=== PATIENT | male | born 1945 | race Caucasian/White ===

== ENCOUNTER 2017-05-20 14:10 | Emergency (ER) | payer MEDICARE ==
--- NOTE | 2017-05-20 15:21 | EDM.PDOC ---
ED HPI GENERAL MEDICAL PROBLEM - General Chief Complaint: Lower Extremity Injury/Pain Stated Complaint: LOWER ABDOMINAL PAIN Time Seen by Provider: 05/20/17 15:18 Source of Information: Reports: Patient History Limitations: Reports: No Limitations - History of Present Illness INITIAL COMMENTS - FREE TEXT/NARRATIVE: HISTORY AND PHYSICAL: History of present illness: Patient is a 72-year-old male presents to the emergency room today with complaints of left hip pain that increases with weightbearing. She reports he has a long-standing history of left lower extremity injury. 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 5-years ago he had a left hip fracture and femur fracture. He reports he has had no problems since that time. Over the past 2 weeks he has had increased left hip pain which has required him to use a front wheeled walker. States the pain is increased with weightbearing. Denies any recent trauma or injury. Denies any numbness or tingling to his lower extremities. Patient does have a history of recent cardiac bypass. Currently denies any chest pain or shortness of breath. Review of systems: As per history of present illness and below otherwise all systems reviewed and negative. Past medical history: As per history of present illness and as reviewed below otherwise noncontributory. Surgical history: As per history of present illness and as reviewed below otherwise noncontributory. Social history: No reported history of drug or alcohol abuse. Family history: As per history of present illness and as reviewed below otherwise noncontributory. Physical exam: HEENT: Atraumatic, normocephalic, pupils reactive, negative for conjunctival pallor or scleral icterus, mucous membranes moist, throat clear, neck supple, nontender, trachea midline. Lungs: Clear to auscultation, breath sounds equal bilaterally, chest nontender. Heart: S1S2, regular, negative for clicks, rubs, or JVD. Abdomen: Soft, nondistended, nontender. Negative for masses or hepatosplenomegaly. Negative for costovertebral tenderness. Pelvis: Stable nontender. Genitourinary: Deferred. Rectal: Deferred. Extremities: Atraumatic, negative for cords or calf pain. Neurovascular unremarkable. Palpable pedal pulses bilaterally, no peripheral edema noted. Normal variant - partial amputation of the left great toe. Neuro: Awake, alert, oriented. Cranial nerves II through XII unremarkable. Cerebellum unremarkable. Motor and sensory unremarkable throughout. Exam nonfocal. Patient has a family member at the bedside who expresses concern of limited blood flow to that left lower extremity. Patient states he has had some circulatory issues in the past and had has some grafting to the inner thigh. Discussed imaging results with patient and family member at bedside. I will place the patient on a Medrol Dosepak and its give a limited amount of tramadol for pain. Patient was instructed that he needs to follow-up with orthopedics if his pain continues. Discussed the importance of follow-up with cardiology with the patient's recent bypass surgery. She voices understanding and is agreeable to plan of care. Diagnostics: X-ray pelvis and hip, ultrasound Therapeutics: 60mg Toradol IM Impression: Hip Pain Definitive disposition and diagnosis as appropriate pending reevaluation and review of above. Onset: Other (2 weeks ago) left upper leg Pain Score (Numeric/FACES): 8 - Related Data Allergies Allergy/AdvReac Type Severity Reaction Status Date / Time Penicillins Allergy Cannot Verified 05/20/17 14:38 Remember Home Meds: Home Meds . [No Known Home Meds] 05/23/16 [History] Past Medical History HEENT History: Reports: Impaired Vision Other HEENT History: has top and bottom dentures, wears glasses Cardiovascular History: Reports: High Cholesterol, Hypertension, [place] Respiratory History: Reports: Other (See Below) Other Respiratory History: smokes 1 pk of cigarettes per day for over 50 yrs Gastrointestinal History: Reports: Other (See Below) Other Gastrointestinal History: states he is on his last treatment for hepatitis C,h/o elevated LFT'S Genitourinary History: Reports: Prostate Disorder Musculoskeletal History: Reports: Back Pain, Chronic Other Musculoskeletal History: WILLA, chronic leg pain Neurological History: Reports: None Psychiatric History: Reports: Addiction, Other (See Below) Other Psychiatric History: hx ETOH abuse Endocrine/Metabolic History: Reports: None Hematologic History: Reports: None Immunologic History: Reports: None Oncologic (Cancer) History: Reports: None Dermatologic History: Reports: None - Infectious Disease History Infectious Disease History: Reports: Hepatitis C, Measles, Mumps - Past Surgical History Head Surgeries/Procedures: Reports: None HEENT Surgical History: Reports: Naso-Sinus Surgery Cardiovascular Surgical History: Reports: Coronary Artery Bypass, Vascular Surgery, Other (See Below) GI Surgical History: Reports: Appendectomy Male Surgical History: Reports: Other (See Below) Other Male Surgeries/Procedures: Prostate Social & Family History - Family History Family Medical History: Noncontributory - Tobacco Use Smoking Status *Q: Current Every Day Smoker Years of Tobacco use: 50 Packs/Tins Daily: 0.3 Second Hand Smoke Exposure: No - Caffeine Use Caffeine Use: Reports: Coffee, Tea - Alcohol Use Days Per Week of Alcohol Use: 0 Number of Drinks Per Day: 1 Total Drinks Per Week: 0 - Recreational Drug Use Recreational Drug Use: Yes Drug Use in Last 12 Months: Yes Recreational Drug Type: Reports: Marijuana/Hashish, Methamphetamine Other Recreational Drug Type: last used about 1 year ago Recreational Drug Use Frequency: Not Used In Over 3 Months Recreational Drug Last Use: meth Review of Systems - Review of Systems Review Of Systems: ROS reveals no pertinent complaints other than HPI. ED EXAM, GENERAL - Physical Exam Exam: See Below (See dictation) Course - Vital Signs Last Recorded V/S: Last Vital Signs Temp 36.3 C 05/20/17 14:34 Pulse 94 05/20/17 14:34 Resp 18 05/20/17 14:34 BP 130/90 05/20/17 14:34 Pulse Ox 97 05/20/17 14:34 - Orders/Labs/Meds Orders: Active Orders 24 hr Category Date Time Status Art Duplex Lwr Ext Ltd [US] Stat Exams 05/20/17 15:39 Taken Hip Min 2V or 3V w Pelvis Lt [CR] Stat Exams 05/20/17 15:18 Taken Venous Doppler Lwr Ext Lt [US] Stat Exams 05/20/17 15:41 Taken Meds: Medications Discontinued Medications Generic Name Dose Route Start Last Admin Trade Name Zaria PRN Reason Stop Dose Admin Ketorolac Tromethamine 60 mg 05/20/17 17:43 05/20/17 18:15 Toradol IM 05/20/17 17:44 60 mg ONETIME ONE Administration Prednisone 20 mg 05/20/17 18:27 Prednisone PO 05/20/17 18:28 ONETIME ONE Departure - Departure Time of Disposition: 18:29 Disposition: Home, Self-Care 01 Condition: Good Clinical Impression: Hip pain, left - Discharge Information Referrals: PCP,None [Primary Care Provider] - Forms: ED Department Discharge Additional Instructions: The following information is given to patients seen in the emergency department who are being discharged to home. This information is to outline your options for follow-up care. We provide all patients seen in our emergency department with a follow-up referral. The need for follow-up, as well as the timing and circumstances, are variable depending upon the specifics of your emergency department visit. If you don't have a primary care physician on staff, we will provide you with a referral. We always advise you to contact your personal physician following an emergency department visit to inform them of the circumstance of the visit and for follow-up with them and/or the need for any referrals to a consulting specialist. The emergency department will also refer you to a specialist when appropriate. This referral assures that you have the opportunity for followup care with a specialist. All of these measure are taken in an effort to provide you with optimal care, which includes your followup. Under all circumstances we always encourage you to contact your private physician who remains a resource for coordinating your care. When calling for followup care, please make the office aware that this follow-up is from your recent emergency room visit. If for any reason you are refused follow-up, please contact the [facility] emergency department at and ask to speak to the emergency department charge nurse. [facility]--Orthopedic clinic Professional [address] [address] 1. Please take your medications as prescribed. Follow up with orthopedics as we discussed. 2. Return to the ED as needed as discussed - My Orders Last 24 Hours: My Active Orders 05/20/17 15:18 Hip Min 2V or 3V w Pelvis Lt [CR] Stat 05/20/17 15:39 Art Duplex Lwr Ext Ltd [US] Stat 05/20/17 15:41 Venous Doppler Lwr Ext Lt [US] Stat - Assessment/Plan Last 24 Hours: My Active Orders 05/20/17 15:18 Hip Min 2V or 3V w Pelvis Lt [CR] Stat 05/20/17 15:39 Art Duplex Lwr Ext Ltd [US] Stat 05/20/17 15:41 Venous Doppler Lwr Ext Lt [US] Stat
[2017-05-20] MEDS ORDERED: Ketorolac 60 MG/2 ML SDV IM ONE (17:43)
[2017-05-20] MEDS ORDERED: predniSONE 20 MG Tab PO ONE (18:27)
[2017-05-20 19:02] VITALS: BP 144/81
--- NOTE | 2017-05-21 10:06 | US ---
EXAM DATE: 05/20/17 PATIENT'S AGE: 72 Patient: SHALONDA LÓPEZ Facility: [place], [place] Site . Site : 1945 Study: US Extremity Left venous [id number]/11/2017 5:00:54 PM Ordering Physician: Doctor Henao Final Report: INDICATION: PAIN LT HIP R/O BLOCKAGE LEFT LOWER EXTREMITY VENOUS DUPLEX ULTRASOUND TECHNIQUE: Duplex sonography using grayscale imaging as well as color and spectral Doppler interrogation was performed over the left lower extremity with attention to the deep venous system. FINDINGS: The left common femoral, femoral, deep femoral, popliteal, and posterior tibial veins show normal compressibility, color Doppler flow, and augmentation response. IMPRESSION: No evidence of deep venous thrombosis in the left lower extremity. SEBASITEN ROJAS MD [employer] Dictated by: Emanuel Rojas MD @ 05/20/2017 17:48:37 (Electronic Signature) Report Signed by Proxy. DOMINIQUE
--- NOTE | 2017-05-21 10:07 | CR ---
EXAM DATE: 05/20/17 PATIENT'S AGE: 72 Patient: SHALONDA LÓPEZ Facility: [place], [place] Site . Site : 1945 Study: XRay Extremity Left hip [id number]/11/2017 5:23:15 PM Ordering Physician: Doctor Henao Final Report: HISTORY: Pain. Technique: Left femur 2 views. Comparison: None. Findings: Remote proximal femur fracture deformity. Post internal fixation of the femur with long intra medullary nail, femoral neck screw, and two distal interlocking screws. Small amount of heterotopic ossification adjacent to the greater trochanter. Hardware is intact. No lucency around the hardware. No acute fracture. Mild arthrosis of the left hip. Atherosclerotic calcifications. Surgical clips in the left thigh. Impression: No acute findings. Remote posttraumatic and postoperative changes in the left femur. Dictated by Edwin Merino MD @ May 20 2017 6:11PM (Electronic Signature) Report Signed by Proxy. DOMINIQUE
--- NOTE | 2017-05-22 09:49 | US ---
EXAM DATE: 05/20/17 PATIENT'S AGE: 72 Patient: SHALONDA LÓPEZ Facility: [facility] Site . Site : 1945 Study: US-Extremity Left ARTERIAL [id number]/11/2017 5:02:18 PM Ordering Physician: Doctor Henao Final Report: Exam: Duplex ultrasound of the left lower extremity arteries with color and spectral Doppler. Indication: Left leg pain. Comparison: None. Findings: LEFT: VALVE PIPE IRRIGATOR: 41 cm/sec; monophasic waveform SFA PROX: 97 cm/sec (VR 2.4); monophasic waveform SFA MID: 49 cm/sec; weakly biphasic waveform SFA DIST: 50 cm/sec; weakly biphasic waveform POP: 33 cm/sec; weakly biphasic waveform CERTIFIED ORTHOTIST: 24 cm/sec; monophasic waveform ILSA: 36 cm/sec; biphasic waveform Impression: 1. Patent left lower extremity arteries with diminished waveforms suggestive of inflow disease. 2. Elevated velocity ratio in the proximal left SFA suggestive of a moderate stenosis, though no evidence of hemodynamically significant stenosis on duplex ultrasound. 3. Otherwise, no hemodynamically significant stenosis in the visualized left lower extremity arteries. Dictated by Garland Wall MD @ May 21 2017 4:50PM Signed by: Garland Wall MD @05/21/2017 5:00:50 PM (Electronic Signature) Report Signed by Proxy. DOMINIQUE
== END 2017-05-20 18:57 | disposition home or self-care (01) ==
LOC: MW.ED 14:10
DX: M25.552 Pain in left hip (principal); E78.00 Pure hypercholesterolemia, unspecified; I10 Essential (primary) hypertension; F17.210 Nicotine dependence, cigarettes, uncomplicated; I25.2 Old myocardial infarction; Z90.49 Acquired absence of other specified parts of digestive tract; Z88.0 Allergy status to penicillin
CPT/HCPCS: 73502; 93926; 93971; 96372; 99284; A9270; J1885; 99283

== ENCOUNTER 2017-10-12 23:08 | Observation (INO) | payer MEDICARE ==
[2017-10-12] MEDS ORDERED: Ketorolac 30 MG/ML SDV IM ONE (23:44)
--- NOTE | 2017-10-12 23:45 | EDM.PDOC ---
ED HPI GENERAL MEDICAL PROBLEM - General Chief Complaint: Back Pain or Injury Stated Complaint: LOWER BACK PAIN Time Seen by Provider: 10/12/17 23:45 Source of Information: Reports: Patient - History of Present Illness INITIAL COMMENTS - FREE TEXT/NARRATIVE: HISTORY AND PHYSICAL: History of present illness: [ 72-year-old male with chronic low back pain presents with pain not relieved by as Neurontin or ibuprofen, he was scheduled for back surgery [facility] last year however he is found to require 3 bypass CABG and surgery was put off is been doing better since this time and is scheduled to see a physician at [facility] in mind to reschedule surgery although tonight he is having some right sciatic distribution pain he has no new injury falls or trauma this is not new pain to him just seems to be getting worse he has no foot drop saddle anesthesia bowel or urine symptoms No fever nausea vomiting chills sweats no chest pain shortness breath headache dizziness palpitation no bowel or urine symptoms ] Review of systems: As per history of present illness and below otherwise all systems reviewed and negative. Past medical history: As per history of present illness and as reviewed below otherwise noncontributory. Surgical history: As per history of present illness and as reviewed below otherwise noncontributory. Social history: No reported history of drug or alcohol abuse. Family history: As per history of present illness and as reviewed below otherwise noncontributory. Physical exam: HEENT: Atraumatic, normocephalic, pupils reactive, negative for conjunctival pallor or scleral icterus, mucous membranes moist, throat clear, neck supple, nontender, trachea midline. Lungs: Clear to auscultation, breath sounds equal bilaterally, chest nontender. Heart: S1S2, regular, negative for clicks, rubs, or JVD. Abdomen: Soft, nondistended, nontender. Negative for masses or hepatosplenomegaly. Negative for costovertebral tenderness. Pelvis: Stable nontender. Genitourinary: Deferred. Rectal: Deferred. Extremities: Atraumatic, negative for cords or calf pain. Neurovascular unremarkable. Neuro: Awake, alert, oriented. Cranial nerves II through XII unremarkable. Cerebellum unremarkable. Motor and sensory unremarkable throughout. Exam nonfocal. Diagnostics: [Patient deferred x-ray ] Therapeutics: [Toradol 60 IM Upper Tract 5 per 325 one by mouth every 6 when necessary #20 no refill ] Impression: [Chronic low back pain ] Definitive disposition and diagnosis as appropriate pending reevaluation and review of above. lower back Pain Score (Numeric/FACES): 8 - Related Data Allergies Allergy/AdvReac Type Severity Reaction Status Date / Time Penicillins Allergy Cannot Verified 10/12/17 23:42 Remember Home Meds: Home Meds ALPRAZolam [ALPRAZolam ODT] 0.25 mg PO DAILY 10/12/17 [History] Gabapentin [Neurontin] 300 mg PO TID 10/12/17 [History] Lisinopril 10 mg PO DAILY 10/12/17 [History] Metoprolol Succinate [Toprol XL] 25 mg PO BID 10/12/17 [History] Past Medical History HEENT History: Reports: Impaired Vision Other HEENT History: has top and bottom dentures, wears glasses Cardiovascular History: Reports: High Cholesterol, Hypertension, [place] Respiratory History: Reports: Other (See Below) Other Respiratory History: smokes 1 pk of cigarettes per day for over 50 yrs Gastrointestinal History: Reports: Other (See Below) Other Gastrointestinal History: states he is on his last treatment for hepatitis C,h/o elevated LFT'S Genitourinary History: Reports: Prostate Disorder Musculoskeletal History: Reports: Back Pain, Chronic Other Musculoskeletal History: WILLA, chronic leg pain Neurological History: Reports: None Psychiatric History: Reports: Addiction, Other (See Below) Other Psychiatric History: hx ETOH abuse Endocrine/Metabolic History: Reports: None Hematologic History: Reports: None Immunologic History: Reports: None Oncologic (Cancer) History: Reports: None Dermatologic History: Reports: None - Infectious Disease History Infectious Disease History: Reports: Hepatitis C, Measles, Mumps - Past Surgical History Head Surgeries/Procedures: Reports: None HEENT Surgical History: Reports: Naso-Sinus Surgery Cardiovascular Surgical History: Reports: Coronary Artery Bypass, Vascular Surgery, Other (See Below) GI Surgical History: Reports: Appendectomy Male Surgical History: Reports: Other (See Below) Other Male Surgeries/Procedures: Prostate Social & Family History - Family History Family Medical History: Noncontributory - Tobacco Use Smoking Status *Q: Current Every Day Smoker Years of Tobacco use: 50 Packs/Tins Daily: 0.3 Second Hand Smoke Exposure: No - Caffeine Use Caffeine Use: Reports: Coffee, Tea - Alcohol Use Days Per Week of Alcohol Use: 0 Number of Drinks Per Day: 1 Total Drinks Per Week: 0 - Recreational Drug Use Recreational Drug Use: Yes Drug Use in Last 12 Months: Yes Recreational Drug Type: Reports: Marijuana/Hashish, Methamphetamine Other Recreational Drug Type: last used about 1 year ago Recreational Drug Use Frequency: Not Used In Over 3 Months Recreational Drug Last Use: meth ED ROS GENERAL - Review of Systems Review Of Systems: ROS reveals no pertinent complaints other than HPI. ED EXAM, GENERAL - Physical Exam Exam: See Below Course - Vital Signs Last Recorded V/S: Last Vital Signs Temp 97.9 F 10/12/17 23:34 Pulse 66 10/12/17 23:34 Resp 21 H 10/12/17 23:34 BP 123/58 L 10/12/17 23:34 Pulse Ox 99 10/12/17 23:34 - Orders/Labs/Meds Meds: Medications Discontinued Medications Generic Name Dose Route Start Last Admin Trade Name Freq PRN Reason Stop Dose Admin Ketorolac Tromethamine 30 mg 10/12/17 23:44 Toradol IM 10/12/17 23:45 ONETIME ONE Departure - Departure Time of Disposition: 23:57 Disposition: Home, Self-Care 01 Condition: Good Clinical Impression: Low back pain Qualifiers: Chronicity: chronic Back pain laterality: bilateral Sciatica presence: with sciatica Sciatica laterality: sciatica of right side Qualified Code(s): M54.41 - Lumbago with sciatica, right side - Discharge Information Referrals: PCP,None [Primary Care Provider] - Forms: ED Department Discharge Additional Instructions: Medication as prescribed Return if symptoms persist or worsen or new concerning symptoms develop Follow-up as scheduled in [place] next week The following information is given to patients seen in the emergency department who are being discharged to home. This information is to outline your options for follow-up care. We provide all patients seen in our emergency department with a follow-up referral. The need for follow-up, as well as the timing and circumstances, are variable depending upon the specifics of your emergency department visit. If you don't have a primary care physician on staff, we will provide you with a referral. We always advise you to contact your personal physician following an emergency department visit to inform them of the circumstance of the visit and for follow-up with them and/or the need for any referrals to a consulting specialist. The emergency department will also refer you to a specialist when appropriate. This referral assures that you have the opportunity for follow-up care with a specialist. All of these measure are taken in an effort to provide you with optimal care, which includes your follow-up. Under all circumstances we always encourage you to contact your private physician who remains a resource for coordinating your care. When calling for follow-up care, please make the office aware that this follow-up is from your recent emergency room visit. If for any reason you are refused follow-up, please contact the [facility] emergency department at and asked to speak to the emergency department charge nurse.
[2017-10-13] MEDS ORDERED: Sodium Chloride 0.9% 1,000 ML IV ONE ×3 (00:45→01:46)
[2017-10-13 02:05] LABS: CHLORIDE,CL 108 mmol/L (98-110); SODIUM,NA 135 mmol/L (136-146)
[2017-10-13] MEDS ORDERED: Levofloxacin/Dextrose 5%-Water 750 MG in Premix Bag 1 BAG IV ONE (02:39)
[2017-10-13] MEDS ORDERED: diphenhydrAMINE 25 MG Cap PO ONE (04:28)
[2017-10-13] MEDS ORDERED: Sodium Chloride 0.9% 1,000 ML IV SCH (04:30)
[2017-10-13 11:54] VITALS: BP 130/71
--- NOTE | 2017-10-13 13:11 | PCM.HP ---
H&P History of Present Illness - General Admit Problem/Dx: Admission Diagnosis/Problem Admission Diagnosis/Problem Hypotension - History of Present Illness Initial Comments - Free Text/Narative: 72 yo male wiht pmh of CAD and chronic back pain. He presented with one day history of feeling ill. He reported generalized weakness, nausea, and lower back pain. He denied any fevers, chills, cough, diarrhea, or constipation. In the ED he was noted to have a blood pressure of 70/40 which improved to 110/60s with IV fluid bolus. His lab work was significant for a WBC of 16.48 and creatinine of 1.9. CT chest showed nodular pleural calcifications but no acute abnormality. lower back Pain Score (Numeric/FACES): 2 - Related Data Allergies/Adverse Reactions: Allergies Allergy/AdvReac Type Severity Reaction Status Date / Time levofloxacin [From Levaquin] Allergy Itching Verified 10/13/17 05:20 Penicillins Allergy Cannot Verified 10/12/17 23:42 Remember Home Medications: Home Meds ALPRAZolam [ALPRAZolam ODT] 0.25 mg PO DAILY 10/12/17 [History] Gabapentin [Neurontin] 300 mg PO TID 10/12/17 [History] Lisinopril 10 mg PO DAILY 10/12/17 [History] Metoprolol Succinate [Toprol XL] 25 mg PO BID 10/12/17 [History] Past Medical History HEENT History: Reports: Impaired Vision Other HEENT History: has top and bottom dentures, wears glasses Cardiovascular History: Reports: High Cholesterol, Hypertension, [place] Respiratory History: Reports: Other (See Below) Other Respiratory History: smokes 1 pk of cigarettes per day for over 50 yrs Gastrointestinal History: Reports: Other (See Below) Other Gastrointestinal History: states he is on his last treatment for hepatitis C,h/o elevated LFT'S Genitourinary History: Reports: Prostate Disorder Musculoskeletal History: Reports: Back Pain, Chronic Other Musculoskeletal History: WILLA, chronic leg pain Neurological History: Reports: None Psychiatric History: Reports: Addiction, Other (See Below) Other Psychiatric History: hx ETOH abuse Endocrine/Metabolic History: Reports: None Hematologic History: Reports: None Immunologic History: Reports: None Oncologic (Cancer) History: Reports: None Dermatologic History: Reports: None - Infectious Disease History Infectious Disease History: Reports: Hepatitis C, Measles, Mumps - Past Surgical History Head Surgeries/Procedures: Reports: None HEENT Surgical History: Reports: Naso-Sinus Surgery Cardiovascular Surgical History: Reports: Coronary Artery Bypass, Vascular Surgery, Other (See Below) GI Surgical History: Reports: Appendectomy Male Surgical History: Reports: Other (See Below) Other Male Surgeries/Procedures: Prostate Social & Family History - Family History Family Medical History: Noncontributory - Tobacco Use Smoking Status *Q: Current Every Day Smoker Years of Tobacco use: 55 Packs/Tins Daily: 1 Second Hand Smoke Exposure: No - Caffeine Use Caffeine Use: Reports: Coffee - Alcohol Use Days Per Week of Alcohol Use: 0 Number of Drinks Per Day: 1 Total Drinks Per Week: 0 - Recreational Drug Use Recreational Drug Use: Yes Drug Use in Last 12 Months: Yes Recreational Drug Type: Reports: Marijuana/Hashish Other Recreational Drug Type: last used about 1 year ago Recreational Drug Use Frequency: Monthly Recreational Drug Last Use: meth H&P Review of Systems - Review of Systems: Review Of Systems: ROS reveals no pertinent complaints other than HPI. Exam - Exam Exam: See Below - Vital Signs Vital Signs: Last Vital Signs Temp 36.6 C 10/13/17 11:53 Pulse 79 10/13/17 11:53 Resp 22 H 10/13/17 08:00 BP 130/71 10/13/17 11:53 Pulse Ox 96 10/13/17 08:00 Weight: 109.951 kg - Exam General: Alert, Oriented HEENT: Mucosa Moist & [place] Neck: Supple, Trachea Midline. No: JVD Lungs: Clear to Auscultation, Normal Respiratory Effort Cardiovascular: Regular Rate, Regular Rhythm GI/Abdominal Exam: Normal Bowel Sounds, Soft, Non-Tender, No Distention Back Exam: Normal Inspection Extremities: No Pedal Edema Skin: Warm, Dry, Intact Neurological: No: Focal Deficit - Patient Data Lab Results Last 24 hrs: Laboratory Results - last 24 hr 10/13/17 10/13/17 Range/Units 12:15 12:15 WBC 11.69 H (4.0-11.0) K/uL RBC 5.07 (4.50-5.90) M/uL Hgb 16.3 (13.0-17.0) g/dL Hct 48.0 (38.0-50.0) % MCV 94.7 (80.0-98.0) fL MCH 32.1 H (27.0-32.0) pg MCHC 34.0 (31.0-37.0) g/dL RDW Std Deviation 56.5 (28.0-62.0) fl RDW Coeff of [place]ba 16 H (11.0-15.0) % Plt Count 182 (150-400) K/uL MPV 10.00 (7.40-12.00) fL Neut % (Auto) 69.5 (48.0-80.0) % Lymph % (Auto) 17.7 (16.0-40.0) % [place] % (Auto) 10.4 (0.0-15.0) % Eos % (Auto) 2.0 (0.0-7.0) % Baso % (Auto) 0.4 (0.0-1.5) % Neut # (Auto) 8.1 H (1.4-5.7) K/uL Lymph # (Auto) 2.1 (0.6-2.4) K/uL [place] # (Auto) 1.2 H (0.0-0.8) K/uL Eos # (Auto) 0.2 (0.0-0.7) K/uL Baso # (Auto) 0.1 (0.0-0.1) K/uL Nucleated RBC % 0.0 /100WBC Nucleated RBCs # 0 K/uL Sodium 139 (136-146) mmol/L Potassium 4.9 (3.5-5.1) mmol/L Chloride 110 (98-110) mmol/L Carbon Dioxide 22 (21-31) mmol/L BUN 31 H (6.0-23.0) mg/dL Creatinine 1.2 (0.6-1.5) mg/dL Est Cr Clr Drug Dosing 58.39 mL/min Estimated GFR (MDRD) 59.3 ml/min Glucose 92 (60-110) mg/dL Calcium 8.3 L (8.8-10.8) mg/dL Result Diagrams: 10/13/17 12:15 10/13/17 12:15 *Q Meaningful Use (ADM) - VTE *Q VTE Criteria *Q: - Stroke *Q Stroke Criteria *Q: - AMI *Q AMI Criteria *Q: Problem List Initiated/Reviewed/Updated: Yes Orders Last 24hrs: Active Orders 24 hr Category Date Time Status Telemetry Monitoring [Cardiac Monitoring] [RC] . Care 10/13/17 03:43 Active DIRECTED Regular Diet [DIET] Diet 10/13/17 Breakfast Active Sodium Chloride 0.9% [Normal Saline] 1,000 ml Med 10/13/17 04:30 Active IV ASDIRECTED Medication Orders Sodium Chloride (Normal Saline) 1,000 mls @ 150 mls/hr IV ASDIRECTED BERYL Last Admin: 10/13/17 10:04 Dose: 150 mls/hr Assessment/Plan Comment:: 72 yo male who presented with hypotension, nausea, leukocytosis and acute kidney injury. I suspect patient was dehydrated from gastritis. He received IV fluids with normalization of blood pressure and improvement in his leukocytosis. Creatinine improved to 1.2. His symptoms have resolved and he is requesting discharge home. Patient was discharged home to follow up with [facility] clinic.
--- NOTE | 2017-10-14 15:37 | CR ---
EXAM DATE: 10/13/17 PATIENT'S AGE: 72 Patient: SHALONDA LÓPEZ Facility: [place], [place] Site . Site : 1945 Study: XRay Chest [id number]/[id number] 1:16:32 AM Ordering Physician: Scout Pineda Final Report: Indication: Shortness of breath, hypotension Technique: Chest 1 view Comparison: April 11, 2016. Findings/Impression: Cardiomediastinal silhouette within normal limits. Postoperative changes of median sternotomy. There are some nodular opacities in both upper lobes which appear increased compared to the prior exam. No effusion or pneumothorax. No acute osseous abnormality. Recommend chest CT for further evaluation of the pulmonary findings. Dictated by Jessica Ellison MD @ Oct 13 2017 1:42AM (Electronic Signature) Report Signed by Proxy. DOMINIQUE
--- NOTE | 2017-10-14 15:38 | CT ---
EXAM DATE: 10/13/17 PATIENT'S AGE: 72 Patient: SHALONDA LÓPEZ Facility: [place], [place] Site . Site : 1945 Study: CT Chest W/O [id number] 2:47:05 AM Ordering Physician: Scout Pineda Final Report: INDICATION: Chest pain, shortness of breath TECHNIQUE: CT chest without contrast. COMPARISON: Chest radiograph October 13, 2017 and April 11, 2016 FINDINGS: Cardiovascular structures: Status post median sternotomy. Heart size is normal. There are coronary artery calcifications. Thoracic aorta and main pulmonary artery are normal in caliber. Mediastinum and bibi: No sign of mass or adenopathy. Lungs: Clear. Pleura and pericardium: No effusions. Diffuse nodular pleural calcifications, most prominent within the anterior upper pleura. Chest wall and axilla: No mass or adenopathy. Upper abdomen: Fatty infiltration of the pancreas. Bones: Remote left posterior 10th rib fracture. IMPRESSION: 1. No acute abnormality identified. 2. Nodular pleural calcifications. This accounts for the abnormal findings on the chest radiograph from earlier today. Pleural calcifications can be associated with asbestos related pleural disease and clinical correlation is needed. 3. Coronary artery disease. Please note that all CT scans at this facility use dose modulation, iterative reconstruction, and/or weight-based dosing when appropriate to reduce radiation dose to as low as reasonably achievable. Dictated by Jessica Ellison MD @ Oct 13 2017 3:00AM (Electronic Signature) Report Signed by Proxy. DOMINIQUE
== END 2017-10-13 14:10 | disposition home or self-care (01) ==
LOC: MW.ED 23:08 → MW.MS 10-13 03:30
PROVIDERS: ADMIT Internal Medicine; ATTEND Internal Medicine
DX: I95.9 Hypotension, unspecified (principal); E78.00 Pure hypercholesterolemia, unspecified; I10 Essential (primary) hypertension; I25.10 Atherosclerotic heart disease of native coronary artery without angina pectoris; I25.2 Old myocardial infarction; F17.210 Nicotine dependence, cigarettes, uncomplicated; G89.29 Other chronic pain; N17.9 Acute kidney failure, unspecified; D72.829 Elevated white blood cell count, unspecified; Z88.0 Allergy status to penicillin; Z88.1 Allergy status to other antibiotic agents; Z79.899 Other long term (current) drug therapy; Z95.1 Presence of aortocoronary bypass graft; Z90.49 Acquired absence of other specified parts of digestive tract
CPT/HCPCS: 36415; 71045; 71250; 80048; 80053; 81001; 83605; 83880; 84484; 85025; 85610; 87040; 87086; 87804; 93005; 96361; 96365; 96372; 99285; A9270; J1885; J1956; J7040; 99284; G0378

== ENCOUNTER 2018-11-09 21:45 | Emergency (ER) | payer MEDICARE ==
[2018-11-09] MEDS ORDERED: Ketorolac 30 MG/ML SDV IVPUSH ONE (21:47)
[2018-11-09] MEDS ORDERED: Ondansetron 4 MG/2 ML SDV IVPUSH ONE (21:47)
--- NOTE | 2018-11-09 21:48 | EDM.PDOC ---
ED HPI GENERAL MEDICAL PROBLEM - General Chief Complaint: Respiratory Problem Stated Complaint: PT HAS KIDNEY PAIN Time Seen by Provider: 11/09/18 21:48 Source of Information: Reports: Patient - History of Present Illness INITIAL COMMENTS - FREE TEXT/NARRATIVE: HISTORY AND PHYSICAL: History of present illness: [Patient presents with 8 out of 10 right flank pain persistent throughout the day on arrival sweats sounding cough and wheeze no fever nausea vomiting chills sweats initially he did not divide a great amount of history due to pain] Review of systems: As per history of present illness and below otherwise all systems reviewed and negative. Past medical history: As per history of present illness and as reviewed below otherwise noncontributory. Surgical history: As per history of present illness and as reviewed below otherwise noncontributory. Social history: No reported history of drug or alcohol abuse. Family history: As per history of present illness and as reviewed below otherwise noncontributory. Physical exam: HEENT: Atraumatic, normocephalic, pupils reactive, negative for conjunctival pallor or scleral icterus, mucous membranes moist, throat clear, neck supple, nontender, trachea midline. Lungs: Clear to auscultation, breath sounds equal bilaterally, chest nontender. Post DuoNeb and Solu-Medrol decreased breath sounds at the face with fine crackles Heart: S1S2, regular, negative for clicks, rubs, or JVD. Abdomen: Soft, nondistended, nontender. Negative for masses or hepatosplenomegaly. Negative for costovertebral tenderness. Pelvis: Stable nontender. Genitourinary: Deferred. Rectal: Deferred. Extremities: Atraumatic, negative for cords or calf pain. Neurovascular unremarkable. Neuro: Awake, alert, oriented. Cranial nerves II through XII unremarkable. Cerebellum unremarkable. Motor and sensory unremarkable throughout. Exam nonfocal. Diagnostics: []CBC CMP UA troponin lipase cultures [address] abdomen pelvis with contrast Therapeutics: [ 1 g Rocephin Azithromycin 500 mg IV Normal saline 1 25 mL per hour Patient offered admission however he refused hence azithromycin was provided orally as well as will continue oral azithromycin at home for 6 more days, all risks and benefits discussed Active Albuterol HFA Return if symptoms persist or worsen ] Impression: [ bilateral lower lobe pneumonia , a greater than left , best appreciated on CT abdomen Leukocytosis Chronic history of baseline] Definitive disposition and diagnosis as appropriate pending reevaluation and review of above. Lower Back Pain Score (Numeric/FACES): 10 - Related Data Allergies Allergy/AdvReac Type Severity Reaction Status Date / Time levofloxacin [From Levaquin] Allergy Itching Verified 11/09/18 21:50 Penicillins Allergy Cannot Verified 11/09/18 21:50 Remember Home Meds: Home Meds Gabapentin [Neurontin] 300 mg PO TID 10/12/17 [History] Lisinopril 10 mg PO DAILY 10/12/17 [History] Metoprolol Succinate [Toprol XL] 25 mg PO BID 10/12/17 [History] Simvastatin [Zocor] 10 mg PO DAILY 08/22/18 [History] Past Medical History HEENT History: Reports: Impaired Vision Other HEENT History: has top and bottom dentures, wears glasses Cardiovascular History: Reports: High Cholesterol, Hypertension, [place] Respiratory History: Reports: Other (See Below) Other Respiratory History: smokes 1 pk of cigarettes per day for over 50 yrs Gastrointestinal History: Reports: Other (See Below) Other Gastrointestinal History: states he is on his last treatment for hepatitis C,h/o elevated LFT'S Genitourinary History: Reports: Prostate Disorder Musculoskeletal History: Reports: Back Pain, Chronic Other Musculoskeletal History: WILLA, chronic leg pain Neurological History: Reports: None Psychiatric History: Reports: Addiction, Other (See Below) Other Psychiatric History: hx ETOH abuse Endocrine/Metabolic History: Reports: None Hematologic History: Reports: None Immunologic History: Reports: None Oncologic (Cancer) History: Reports: None Dermatologic History: Reports: None - Infectious Disease History Infectious Disease History: Reports: Hepatitis C - Past Surgical History Head Surgeries/Procedures: Reports: None HEENT Surgical History: Reports: Naso-Sinus Surgery Cardiovascular Surgical History: Reports: Coronary Artery Bypass, Vascular Surgery, Other (See Below) GI Surgical History: Reports: Appendectomy Male Surgical History: Reports: Other (See Below) Other Male Surgeries/Procedures: Prostate Musculoskeletal Surgical History: Reports: Other (See Below) Other Musculoskeletal Surgeries/Procedures:: left foot - 3 harmmer toe repair Social & Family History - Family History Family Medical History: Noncontributory - Caffeine Use Caffeine Use: Reports: Coffee ED ROS GENERAL - Review of Systems Review Of Systems: See Below ED EXAM, GENERAL - Physical Exam Exam: See Below Course - Vital Signs Last Recorded V/S: Last Vital Signs Temp 99.3 F 11/09/18 21:51 Pulse 122 H 11/09/18 21:51 Resp 24 H 11/09/18 21:51 BP 147/79 H 11/09/18 21:56 Pulse Ox 92 L 11/09/18 21:51 - Orders/Labs/Meds Orders: Active Orders 24 hr Category Date Time Status EKG Documentation Completion [RC] STAT Care 11/09/18 22:30 Active RT Aerosol Therapy [RC] ASDIRECTED Care 11/09/18 22:09 Active CULTURE BLOOD [BC] Stat Lab 11/09/18 23:49 Ordered CULTURE BLOOD [BC] Stat Lab 11/09/18 23:49 Ordered Azithromycin [Zithromax] Med 11/09/18 23:54 Stat 500 mg PO NOW STA Sodium Chloride 0.9% [Normal Saline] 500 ml Med 11/09/18 22:00 Active IV STAT cefTRIAXone [Rocephin in Dextrose,Iso-Osm 1 GM/50 ML] 1 Med 11/09/18 23:54 Ordered gm Premix Bag 1 bag IV ONETIME Blood Culture x2 Reflex Set [OM.PC] Stat Oth 11/09/18 23:49 Ordered Medication Orders Sodium Chloride (Normal Saline) 500 mls @ 999 mls/hr IV STAT BERYL Last Admin: 11/09/18 22:05 Dose: 999 mls/hr Ceftriaxone Sodium/Dextrose 1 (gm/ Premix) 50 mls @ 100 mls/hr IV ONETIME ONE Stop: 11/10/18 00:23 Labs: Laboratory Tests 11/09/18 11/09/18 11/09/18 Range/Units 22:20 22:20 22:20 WBC 18.26 H (4.0-11.0) K/uL RBC 5.15 (4.50-5.90) M/uL Hgb 16.1 (13.0-17.0) g/dL Hct 47.3 (38.0-50.0) % MCV 91.8 (80.0-98.0) fL MCH 31.3 (27.0-32.0) pg MCHC 34.0 (31.0-37.0) g/dL RDW Std Deviation 51.4 (28.0-62.0) fl RDW Coeff of [place] 15 (11.0-15.0) % Plt Count 198 (150-400) K/uL MPV 9.40 (7.40-12.00) fL Neut % (Auto) 91.3 H (48.0-80.0) % Lymph % (Auto) 2.8 L (16.0-40.0) % [place] % (Auto) 5.6 (0.0-15.0) % Eos % (Auto) 0.1 (0.0-7.0) % Baso % (Auto) 0.2 (0.0-1.5) % Neut # (Auto) 16.7 H (1.4-5.7) K/uL Lymph # (Auto) 0.5 L (0.6-2.4) K/uL [place] # (Auto) 1.0 H (0.0-0.8) K/uL Eos # (Auto) 0.0 (0.0-0.7) K/uL Baso # (Auto) 0.0 (0.0-0.1) K/uL Nucleated RBC % 0.0 /100WBC Nucleated RBCs # 0 K/uL Sodium 134 L (136-148) mmol/L Potassium 4.1 (3.5-5.1) mmol/L Chloride 99 (98-107) mmol/L Carbon Dioxide 24.0 (21.0-32.0) mmol/L BUN 15 (7.0-18.0) mg/dL Creatinine 1.3 (0.8-1.3) mg/dL Est Cr Clr Drug Dosing 56.34 mL/min Estimated GFR (MDRD) 54.0 ml/min Glucose 115 H (74-106) mg/dL Calcium 8.6 (8.5-10.1) mg/dL Total Bilirubin 0.4 (0.2-1.0) mg/dL AST 25 (15-37) IU/L ALT 22 (14-63) IU/L Alkaline Phosphatase 131 H (46-116) U/L Troponin I < 0.050 (0.000-0.056) ng/mL B-Natriuretic Peptide 85 (<100) PG/ML Total Protein 7.5 (6.4-8.2) g/dL Albumin 3.4 (3.4-5.0) g/dL Globulin 4.1 H (2.6-4.0) g/dL Albumin/Globulin Ratio 0.8 L (0.9-1.6) Lipase 130 (73-393) U/L Urine Color Urine Appearance Urine pH (5.0-8.0) Ur Specific [place] (1.001-1.035) Urine Protein (NEGATIVE) mg/dL Urine Glucose (UA) (NEGATIVE) mg/dL Urine Ketones (NEGATIVE) mg/dL Urine Occult Blood (NEGATIVE) Urine Nitrite (NEGATIVE) Urine Bilirubin (NEGATIVE) Urine Urobilinogen (<2.0) EU/dL Ur Leukocyte Esterase (NEGATIVE) 11/09/18 Range/Units 22:40 WBC (4.0-11.0) K/uL RBC (4.50-5.90) M/uL Hgb (13.0-17.0) g/dL Hct (38.0-50.0) % MCV (80.0-98.0) fL MCH (27.0-32.0) pg MCHC (31.0-37.0) g/dL RDW Std Deviation (28.0-62.0) fl RDW Coeff of [place] (11.0-15.0) % Plt Count (150-400) K/uL MPV (7.40-12.00) fL Neut % (Auto) (48.0-80.0) % Lymph % (Auto) (16.0-40.0) % [place] % (Auto) (0.0-15.0) % Eos % (Auto) (0.0-7.0) % Baso % (Auto) (0.0-1.5) % Neut # (Auto) (1.4-5.7) K/uL Lymph # (Auto) (0.6-2.4) K/uL [place] # (Auto) (0.0-0.8) K/uL Eos # (Auto) (0.0-0.7) K/uL Baso # (Auto) (0.0-0.1) K/uL Nucleated RBC % /100WBC Nucleated RBCs # K/uL Sodium (136-148) mmol/L Potassium (3.5-5.1) mmol/L Chloride (98-107) mmol/L Carbon Dioxide (21.0-32.0) mmol/L BUN (7.0-18.0) mg/dL Creatinine (0.8-1.3) mg/dL Est Cr Clr Drug Dosing mL/min Estimated GFR (MDRD) ml/min Glucose (74-106) mg/dL Calcium (8.5-10.1) mg/dL Total Bilirubin (0.2-1.0) mg/dL AST (15-37) IU/L ALT (14-63) IU/L Alkaline Phosphatase (46-116) U/L Troponin I (0.000-0.056) ng/mL B-Natriuretic Peptide (<100) PG/ML Total Protein (6.4-8.2) g/dL Albumin (3.4-5.0) g/dL Globulin (2.6-4.0) g/dL Albumin/Globulin Ratio (0.9-1.6) Lipase (73-393) U/L Urine Color YELLOW Urine Appearance CLEAR Urine pH 6.0 (5.0-8.0) Ur Specific [place] 1.015 (1.001-1.035) Urine Protein NEGATIVE (NEGATIVE) mg/dL Urine Glucose (UA) NEGATIVE (NEGATIVE) mg/dL Urine Ketones NEGATIVE (NEGATIVE) mg/dL Urine Occult Blood NEGATIVE (NEGATIVE) Urine Nitrite NEGATIVE (NEGATIVE) Urine Bilirubin NEGATIVE (NEGATIVE) Urine Urobilinogen 0.2 (<2.0) EU/dL Ur Leukocyte Esterase NEGATIVE (NEGATIVE) Meds: Medications Generic Name Dose Route Start Last Admin Trade Name Freq PRN Reason Stop Dose Admin Sodium Chloride 500 mls @ 999 mls/hr 11/09/18 22:00 11/09/18 22:05 Normal Saline IV 999 mls/hr STAT BERYL Administration Ceftriaxone Sodium/Dextrose 1 50 mls @ 100 mls/hr 11/09/18 23:54 gm/ Premix IV 11/10/18 00:23 ONETIME ONE Discontinued Medications Generic Name Dose Route Start Last Admin Trade Name Freq PRN Reason Stop Dose Admin Albuterol/Ipratropium 3 ml 11/09/18 22:08 11/09/18 22:26 Duoneb 3.0-0.5 Mg/3 Ml NEB 11/09/18 22:09 3 ml ONETIME ONE Administration Aspirin 324 mg 11/09/18 21:52 11/09/18 22:03 Aspirin PO 11/09/18 21:53 324 mg ONETIME ONE Administration Ketorolac Tromethamine 30 mg 11/09/18 21:47 11/09/18 23:33 Toradol IVPUSH 11/09/18 21:48 Not Given ONETIME ONE Methylprednisolone Sodium Succinate 125 mg 11/09/18 22:08 11/09/18 22:26 Solu-Medrol IVPUSH 11/09/18 22:09 125 mg ONETIME ONE Administration Morphine Sulfate 2 mg 11/09/18 21:52 11/09/18 22:04 Morphine IVPUSH 11/09/18 21:53 2 mg ONETIME ONE Administration Ondansetron HCl 8 mg 11/09/18 21:47 11/09/18 22:04 Zofran IVPUSH 11/09/18 21:48 8 mg ONETIME ONE Administration Departure - Departure Time of Disposition: 23:51 Disposition: Home, Self-Care 01 Condition: Fair Clinical Impression: Pneumonia - Discharge Information Referrals: PCP,None [Primary Care Provider] - Forms: ED Department Discharge Additional Instructions: Medication as prescribed Return if symptoms persist or worsen or if new concerning symptoms develop Follow-up with primary care in 2 weeks sooner as needed [facility] - [facility] [address] [place] [address] The following information is given to patients seen in the emergency department who are being discharged to home. This information is to outline your options for follow-up care. We provide all patients seen in our emergency department with a follow-up referral. The need for follow-up, as well as the timing and circumstances, are variable depending upon the specifics of your emergency department visit. If you don't have a primary care physician on staff, we will provide you with a referral. We always advise you to contact your personal physician following an emergency department visit to inform them of the circumstance of the visit and for follow-up with them and/or the need for any referrals to a consulting specialist. The emergency department will also refer you to a specialist when appropriate. This referral assures that you have the opportunity for follow-up care with a specialist. All of these measure are taken in an effort to provide you with optimal care, which includes your follow-up. Under all circumstances we always encourage you to contact your private physician who remains a resource for coordinating your care. When calling for follow-up care, please make the office aware that this follow-up is from your recent emergency room visit. If for any reason you are refused follow-up, please contact the [facility] emergency department at and asked to speak to the emergency department charge nurse. - My Orders Last 24 Hours: My Active Orders 11/09/18 22:00 Sodium Chloride 0.9% [Normal Saline] 500 ml IV STAT 11/09/18 22:09 RT Aerosol Therapy [RC] ASDIRECTED 11/09/18 22:30 EKG Documentation Completion [RC] STAT 11/09/18 23:49 CULTURE BLOOD [BC] Stat CULTURE BLOOD [BC] Stat Blood Culture x2 Reflex Set [OM.PC] Stat 11/09/18 23:54 Azithromycin [Zithromax] 500 mg PO NOW STA cefTRIAXone [Rocephin in Dextrose,Iso-Osm 1 GM/50 ML] 1 gm Premix Bag 1 bag IV ONETIME - Assessment/Plan Last 24 Hours: My Active Orders 11/09/18 22:00 Sodium Chloride 0.9% [Normal Saline] 500 ml IV STAT 11/09/18 22:09 RT Aerosol Therapy [RC] ASDIRECTED 11/09/18 22:30 EKG Documentation Completion [RC] STAT 11/09/18 23:49 CULTURE BLOOD [BC] Stat CULTURE BLOOD [BC] Stat Blood Culture x2 Reflex Set [OM.PC] Stat 11/09/18 23:54 Azithromycin [Zithromax] 500 mg PO NOW STA cefTRIAXone [Rocephin in Dextrose,Iso-Osm 1 GM/50 ML] 1 gm Premix Bag 1 bag IV ONETIME
[2018-11-09] MEDS ORDERED: Aspirin 81 MG Tab.Chew PO ONE (21:52)
[2018-11-09] MEDS ORDERED: Morphine 2 MG/ML Syringe IVPUSH ONE (21:52)
[2018-11-09] MEDS ORDERED: Sodium Chloride 0.9% 500 ML IV SCH (22:00)
[2018-11-09] MEDS ORDERED: methylPREDNISolone Sodium Succinate 125 MG/2 ML SDV IVPUSH ONE (22:08)
[2018-11-09] MEDS ORDERED: Albuterol/Ipratropium 3.0-0.5 MG/3 ML Neb Soln NEB ONE (22:08)
[2018-11-09 22:54] LABS: CHLORIDE,CL 99 mmol/L (98-107); SODIUM,NA 134 mmol/L (136-148)
--- NOTE | 2018-11-09 23:46 | CR ---
INDICATION: Pain, shortness of breath TECHNIQUE: Chest 1 views. Comparison: Chest x-ray 10/13/2017 FINDINGS: There are stable postsurgical changes of median sternotomy. The heart is normal in size. The pulmonary vasculature is within normal limits. The lungs are clear without focal consolidation, pleural effusion or pneumothorax. There are mild degenerative changes of the thoracic spine. IMPRESSION: Stable chest without acute cardiopulmonary process. Dictated by Lakia Acevedo MD @ 11/09/2018 11:44:01 PM Dictated by: Lakia Acevedo MD @ 11/09/2018 23:44:08 (Electronically Signed)
--- NOTE | 2018-11-09 23:46 | CT ---
INDICATION: Right-sided pain TECHNIQUE: CT abdomen and pelvis without contrast. COMPARISON: None. FINDINGS: Lower chest: Bibasilar calcified granulomata. Airspace consolidation within the bilateral lower lobes. Liver: Calcified granuloma within the liver. Gallbladder and bile ducts: No stones or inflammation. No biliary dilatation. Pancreas: Moderate pancreatic atrophy with some pancreatic calcification consistent with chronic pancreatitis. Spleen: Normal in size. No masses. Adrenal glands: Normal in size. No nodules. Kidneys: Normal in size. No masses, stones, or hydronephrosis. GI tract: The stomach is unremarkable. There are no dilated loops of large or small intestine. Vasculature: Atherosclerosis with aorto bi-iliac graft. Lymph nodes: No lymphadenopathy. Abdominal wall/Omentum/Peritoneum: Right indirect inguinal hernia. Pelvis: Unremarkable. No pelvic masses. Bones: Status post left femoral dynamic hip screw. Spondylolysis L5. Status post L3-4 laminectomy. IMPRESSION: 1. Airspace consolidation within the bilateral lower lobes, greatest in the right lower lobe consistent with pneumonia. 2. Chronic pancreatitis. 3. Atherosclerosis with aorto bi-iliac graft. Please note that all CT scans at this facility use dose modulation, iterative reconstruction, and/or weight-based dosing when appropriate to reduce radiation dose to as low as reasonably achievable. Dictated by Perez Grande MD @ Nov 09 2018 11:39PM Signed by Dr. Perez Grande @ Nov 09 2018 11:44PM
[2018-11-09] MEDS ORDERED: Azithromycin 250 MG Tab PO STA (23:54)
[2018-11-09] MEDS ORDERED: cefTRIAXone 1 GM in Premix Bag 1 BAG IV ONE (23:54)
[2018-11-10 00:10] VITALS: BP 107/59
== END 2018-11-10 01:00 | disposition home or self-care (01) ==
LOC: MW.ED 21:45
DX: J18.1 Lobar pneumonia, unspecified organism (principal); E78.00 Pure hypercholesterolemia, unspecified; I10 Essential (primary) hypertension; I25.2 Old myocardial infarction; D72.829 Elevated white blood cell count, unspecified; Z88.1 Allergy status to other antibiotic agents; Z88.0 Allergy status to penicillin; Z79.899 Other long term (current) drug therapy
CPT/HCPCS: 36415; 71045; 74176; 80053; 81003; 83690; 83880; 84484; 85025; 87040; 93005; 94640; 96361; 96374; 96375; 99285; A9270; J0696; J2270; J2405; J2930; J7040; 99283; J7620-GY

== ENCOUNTER 2018-12-06 06:30 | Observation (INO) | payer MEDICARE ==
[2018-12-06] MEDS ORDERED: Sodium Chloride 0.9% 10 ML Syringe FLUSH PRN (07:01)
[2018-12-06] MEDS ORDERED: Sodium Chloride 0.9% 2.5 ML Syringe FLUSH PRN (07:01)
[2018-12-06] MEDS ORDERED: Sodium Chloride 0.9% 1,000 ML IV SCH ×2 (07:15→11:30)
--- NOTE | 2018-12-06 07:21 | EDM.PDOC ---
<Victor HugoVishal - Last Filed: 12/06/18 07:17> ED HPI GENERAL MEDICAL PROBLEM - General Chief Complaint: Respiratory Problem Stated Complaint: TROUBLE BREATHING Time Seen by Provider: 12/06/18 06:49 - History of Present Illness INITIAL COMMENTS - FREE TEXT/NARRATIVE: HISTORY AND PHYSICAL: History of present illness: Patient 73-year-old white male who was recently hostile as from pneumonia and comes in today with shortness of breath. Patient denies chest pain nausea vomiting fever chills Review of systems: As per history of present illness and below otherwise all systems reviewed and negative. Past medical history: As per history of present illness and as reviewed below otherwise noncontributory. Surgical history: As per history of present illness and as reviewed below otherwise noncontributory. Social history: No reported history of drug or alcohol abuse. Family history: As per history of present illness and as reviewed below otherwise noncontributory. Physical exam: HEENT: Atraumatic, normocephalic, pupils reactive, negative for conjunctival pallor or scleral icterus, mucous membranes moist, throat clear, neck supple, nontender, trachea midline. Lungs: Diminished and coarse bilaterally breath sounds equal bilaterally, chest nontender. Heart: S1S2, negative for clicks, rubs, or JVD. Abdomen: Soft, nondistended, nontender. Negative for masses or hepatosplenomegaly. Negative for costovertebral tenderness. Pelvis: Stable nontender. Genitourinary: Deferred. Rectal: Deferred. Extremities: Atraumatic, negative for cords or calf pain. Neurovascular unremarkable. Neuro: Awake, alert, oriented. Follows commands and moves all extremities limited grossly nonfocal exam. Diagnostics: CBC CMP troponin PT/INR chest x-ray EKG blood culture 2 lactic acid BNP influenza Therapeutics: IV O2 monitor Impression: #1 dyspnea #2 history of recent pneumonia Definitive disposition and diagnosis as appropriate pending reevaluation and review of above. Bilateral Foot Pain Score (Numeric/FACES): 6 - Related Data Allergies Allergy/AdvReac Type Severity Reaction Status Date / Time levofloxacin [From Levaquin] Allergy Itching Verified 11/09/18 21:50 Penicillins Allergy Cannot Verified 11/09/18 21:50 Remember Home Meds: Home Meds Gabapentin [Neurontin] 300 mg PO TID 10/12/17 [History] Lisinopril 10 mg PO DAILY 10/12/17 [History] Metoprolol Succinate [Toprol XL] 25 mg PO BID 10/12/17 [History] Simvastatin [Zocor] 10 mg PO DAILY 08/22/18 [History] Past Medical History HEENT History: Reports: Impaired Vision Other HEENT History: has top and bottom dentures, wears glasses Cardiovascular History: Reports: High Cholesterol, Hypertension, [facility] Respiratory History: Reports: Other (See Below) Other Respiratory History: smokes 1 pk of cigarettes per day for over 50 yrs Gastrointestinal History: Reports: Other (See Below) Other Gastrointestinal History: states he is on his last treatment for hepatitis C,h/o elevated LFT'S Genitourinary History: Reports: Prostate Disorder Musculoskeletal History: Reports: Back Pain, Chronic Other Musculoskeletal History: WILLA, chronic leg pain Neurological History: Reports: None Psychiatric History: Reports: Addiction, Other (See Below) Other Psychiatric History: hx ETOH abuse Endocrine/Metabolic History: Reports: None Hematologic History: Reports: None Immunologic History: Reports: None Oncologic (Cancer) History: Reports: None Dermatologic History: Reports: None - Infectious Disease History Infectious Disease History: Reports: Hepatitis C - Past Surgical History Head Surgeries/Procedures: Reports: None HEENT Surgical History: Reports: Naso-Sinus Surgery Cardiovascular Surgical History: Reports: Coronary Artery Bypass, Vascular Surgery, Other (See Below) GI Surgical History: Reports: Appendectomy Male Surgical History: Reports: Other (See Below) Other Male Surgeries/Procedures: Prostate Musculoskeletal Surgical History: Reports: Other (See Below) Other Musculoskeletal Surgeries/Procedures:: left foot - 3 harmmer toe repair Social & Family History - Family History Family Medical History: Noncontributory - Tobacco Use Smoking Status *Q: Current Every Day Smoker Years of Tobacco use: 60 Packs/Tins Daily: 2 Tobacco Use Comment: pt quit smoking 7 days ago - Caffeine Use Caffeine Use: Reports: Coffee - Recreational Drug Use Recreational Drug Use: No ED ROS GENERAL - Review of Systems Review Of Systems: ROS reveals no pertinent complaints other than HPI. ED EXAM, GENERAL - Physical Exam Exam: See Below (See dictation) Course - Vital Signs Last Recorded V/S: Last Vital Signs Temp 97.5 F 12/06/18 06:35 Pulse 54 L 12/06/18 06:35 Resp 36 H 12/06/18 06:35 BP 147/45 H 12/06/18 06:35 Pulse Ox 94 L 12/06/18 08:00 - Orders/Labs/Meds Orders: Active Orders 24 hr Category Date Time Status Cardiac Monitoring [RC] . DIRECTED Care 12/06/18 07:00 Active EKG 12 Lead [EKG Documentation Completion] [RC] STAT Care 12/06/18 07:25 Active EKG 12 Lead [EKG Documentation Completion] [RC] STAT Care 12/06/18 08:15 Active EKG Documentation Completion [RC] STAT Care 12/06/18 06:58 Active Insert Bellamy Catheter [Insert Urinary Catheter] [OM.PC] Care 12/06/18 08:20 Ordered Stat Oxygen Therapy, ED [RC] ASDIRECTED Care 12/06/18 07:00 Active Pulse Oximetry [RC] ASDIRECTED Care 12/06/18 07:00 Active Urinary Catheter Assessment [RC] ASDIRECTED Care 12/06/18 08:20 Active BLOOD GAS ARTERIAL [BG] Stat Lab 12/06/18 07:00 Ordered CULTURE BLOOD [BC] Stat Lab 12/06/18 07:18 Received CULTURE BLOOD [BC] Stat Lab 12/06/18 07:42 Results Sodium Chloride 0.9% [Normal Saline] 1,000 ml Med 12/06/18 07:15 Active IV STAT Sodium Chloride 0.9% [Saline Flush] Med 12/06/18 07:01 Active 10 ml FLUSH ASDIRECTED PRN Sodium Chloride 0.9% [Saline Flush] Med 12/06/18 07:01 Active 2.5 ml FLUSH ASDIRECTED PRN Blood Culture x2 Reflex Set [OM.PC] Stat Oth 12/06/18 07:00 Ordered Saline Lock Insert [OM.PC] Stat Oth 12/06/18 07:00 Ordered Medication Orders Sodium Chloride (Normal Saline) 1,000 mls @ 125 mls/hr IV STAT BERYL Last Admin: 12/06/18 07:32 Dose: 50 mls/hr Sodium Chloride (Saline Flush) 10 ml FLUSH ASDIRECTED PRN PRN Reason: Keep Vein Open Sodium Chloride (Saline Flush) 2.5 ml FLUSH ASDIRECTED PRN PRN Reason: Keep Vein Open Labs: Laboratory Tests 12/06/18 12/06/18 12/06/18 Range/Units 07:42 07:42 07:42 WBC 10.60 (4.0-11.0) K/uL RBC 5.25 (4.50-5.90) M/uL Hgb 16.2 (13.0-17.0) g/dL Hct 47.4 (38.0-50.0) % MCV 90.3 (80.0-98.0) fL MCH 30.9 (27.0-32.0) pg MCHC 34.2 (31.0-37.0) g/dL RDW Std Deviation 50.0 (28.0-62.0) fl RDW Coeff of Sheba 15 (11.0-15.0) % Plt Count 151 (150-400) K/uL MPV 10.90 (7.40-12.00) fL Neut % (Auto) 67.7 (48.0-80.0) % Lymph % (Auto) 20.1 (16.0-40.0) % Finney % (Auto) 11.4 (0.0-15.0) % Eos % (Auto) 0.3 (0.0-7.0) % Baso % (Auto) 0.5 (0.0-1.5) % Neut # (Auto) 7.2 H (1.4-5.7) K/uL Lymph # (Auto) 2.1 (0.6-2.4) K/uL Finney # (Auto) 1.2 H (0.0-0.8) K/uL Eos # (Auto) 0.0 (0.0-0.7) K/uL Baso # (Auto) 0.1 (0.0-0.1) K/uL Nucleated RBC % 0.0 /100WBC Nucleated RBCs # 0 K/uL INR 0.93 ABG pH (7.35-7.45) ABG pCO2 (35-45) mmHG ABG pO2 (75-100) mmHG ABG HCO3 (22-26) mEq/L ABG Total CO2 ABG Base Excess (-2.0-2.0) Lactate (0.20-2.00) mmol/L Sodium 134 L (136-148) mmol/L Potassium 5.3 H (3.5-5.1) mmol/L Chloride 99 (98-107) mmol/L Carbon Dioxide 22.5 (21.0-32.0) mmol/L BUN 17 (7.0-18.0) mg/dL Creatinine 1.0 (0.8-1.3) mg/dL Est Cr Clr Drug Dosing 73.24 mL/min Estimated GFR (MDRD) > 60.0 ml/min Glucose 108 H (74-106) mg/dL Calcium 9.0 (8.5-10.1) mg/dL Total Bilirubin 0.4 (0.2-1.0) mg/dL AST 32 (15-37) IU/L ALT 26 (14-63) IU/L Alkaline Phosphatase 99 (46-116) U/L Troponin I < 0.050 (0.000-0.056) ng/mL B-Natriuretic Peptide (<100) PG/ML Total Protein 7.9 (6.4-8.2) g/dL Albumin 3.0 L (3.4-5.0) g/dL Globulin 4.9 H (2.6-4.0) g/dL Albumin/Globulin Ratio 0.6 L (0.9-1.6) Urine Color Urine Appearance Urine pH (5.0-8.0) Ur Specific Nunda (1.001-1.035) Urine Protein (NEGATIVE) mg/dL Urine Glucose (UA) (NEGATIVE) mg/dL Urine Ketones (NEGATIVE) mg/dL Urine Occult Blood (NEGATIVE) Urine Nitrite (NEGATIVE) Urine Bilirubin (NEGATIVE) Urine Urobilinogen (<2.0) EU/dL Ur Leukocyte Esterase (NEGATIVE) Urine RBC (0-2/HPF) Urine WBC (0-5/HPF) Ur Epithelial Cells (NONE-FEW) Urine Bacteria (NEGATIVE) 12/06/18 12/06/18 12/06/18 Range/Units 07:42 07:42 07:45 WBC (4.0-11.0) K/uL RBC (4.50-5.90) M/uL Hgb (13.0-17.0) g/dL Hct (38.0-50.0) % MCV (80.0-98.0) fL MCH (27.0-32.0) pg MCHC (31.0-37.0) g/dL RDW Std Deviation (28.0-62.0) fl RDW Coeff of Sheba (11.0-15.0) % Plt Count (150-400) K/uL MPV (7.40-12.00) fL Neut % (Auto) (48.0-80.0) % Lymph % (Auto) (16.0-40.0) % Finney % (Auto) (0.0-15.0) % Eos % (Auto) (0.0-7.0) % Baso % (Auto) (0.0-1.5) % Neut # (Auto) (1.4-5.7) K/uL Lymph # (Auto) (0.6-2.4) K/uL Finney # (Auto) (0.0-0.8) K/uL Eos # (Auto) (0.0-0.7) K/uL Baso # (Auto) (0.0-0.1) K/uL Nucleated RBC % /100WBC Nucleated RBCs # K/uL INR ABG pH 7.454 H (7.35-7.45) ABG pCO2 33 L (35-45) mmHG ABG pO2 64 L (75-100) mmHG ABG HCO3 23 (22-26) mEq/L ABG Total CO2 20.1 ABG Base Excess 0.2 (-2.0-2.0) Lactate 2.6 H (0.20-2.00) mmol/L Sodium (136-148) mmol/L Potassium (3.5-5.1) mmol/L Chloride (98-107) mmol/L Carbon Dioxide (21.0-32.0) mmol/L BUN (7.0-18.0) mg/dL Creatinine (0.8-1.3) mg/dL Est Cr Clr Drug Dosing mL/min Estimated GFR (MDRD) ml/min Glucose (74-106) mg/dL Calcium (8.5-10.1) mg/dL Total Bilirubin (0.2-1.0) mg/dL AST (15-37) IU/L ALT (14-63) IU/L Alkaline Phosphatase (46-116) U/L Troponin I (0.000-0.056) ng/mL B-Natriuretic Peptide 104 H (<100) PG/ML Total Protein (6.4-8.2) g/dL Albumin (3.4-5.0) g/dL Globulin (2.6-4.0) g/dL Albumin/Globulin Ratio (0.9-1.6) Urine Color Urine Appearance Urine pH (5.0-8.0) Ur Specific Nunda (1.001-1.035) Urine Protein (NEGATIVE) mg/dL Urine Glucose (UA) (NEGATIVE) mg/dL Urine Ketones (NEGATIVE) mg/dL Urine Occult Blood (NEGATIVE) Urine Nitrite (NEGATIVE) Urine Bilirubin (NEGATIVE) Urine Urobilinogen (<2.0) EU/dL Ur Leukocyte Esterase (NEGATIVE) Urine RBC (0-2/HPF) Urine WBC (0-5/HPF) Ur Epithelial Cells (NONE-FEW) Urine Bacteria (NEGATIVE) 12/06/18 Range/Units 08:13 WBC (4.0-11.0) K/uL RBC (4.50-5.90) M/uL Hgb (13.0-17.0) g/dL Hct (38.0-50.0) % MCV (80.0-98.0) fL MCH (27.0-32.0) pg MCHC (31.0-37.0) g/dL RDW Std Deviation (28.0-62.0) fl RDW Coeff of Sheba (11.0-15.0) % Plt Count (150-400) K/uL MPV (7.40-12.00) fL Neut % (Auto) (48.0-80.0) % Lymph % (Auto) (16.0-40.0) % Finney % (Auto) (0.0-15.0) % Eos % (Auto) (0.0-7.0) % Baso % (Auto) (0.0-1.5) % Neut # (Auto) (1.4-5.7) K/uL Lymph # (Auto) (0.6-2.4) K/uL Finney # (Auto) (0.0-0.8) K/uL Eos # (Auto) (0.0-0.7) K/uL Baso # (Auto) (0.0-0.1) K/uL Nucleated RBC % /100WBC Nucleated RBCs # K/uL INR ABG pH (7.35-7.45) ABG pCO2 (35-45) mmHG ABG pO2 (75-100) mmHG ABG HCO3 (22-26) mEq/L ABG Total CO2 ABG Base Excess (-2.0-2.0) Lactate (0.20-2.00) mmol/L Sodium (136-148) mmol/L Potassium (3.5-5.1) mmol/L Chloride (98-107) mmol/L Carbon Dioxide (21.0-32.0) mmol/L BUN (7.0-18.0) mg/dL Creatinine (0.8-1.3) mg/dL Est Cr Clr Drug Dosing mL/min Estimated GFR (MDRD) ml/min Glucose (74-106) mg/dL Calcium (8.5-10.1) mg/dL Total Bilirubin (0.2-1.0) mg/dL AST (15-37) IU/L ALT (14-63) IU/L Alkaline Phosphatase (46-116) U/L Troponin I (0.000-0.056) ng/mL B-Natriuretic Peptide (<100) PG/ML Total Protein (6.4-8.2) g/dL Albumin (3.4-5.0) g/dL Globulin (2.6-4.0) g/dL Albumin/Globulin Ratio (0.9-1.6) Urine Color YELLOW Urine Appearance CLEAR Urine pH 6.0 (5.0-8.0) Ur Specific Nunda 1.010 (1.001-1.035) Urine Protein NEGATIVE (NEGATIVE) mg/dL Urine Glucose (UA) NEGATIVE (NEGATIVE) mg/dL Urine Ketones NEGATIVE (NEGATIVE) mg/dL Urine Occult Blood LARGE H (NEGATIVE) Urine Nitrite NEGATIVE (NEGATIVE) Urine Bilirubin NEGATIVE (NEGATIVE) Urine Urobilinogen 0.2 (<2.0) EU/dL Ur Leukocyte Esterase NEGATIVE (NEGATIVE) Urine RBC 18-20 (0-2/HPF) Urine WBC 0-1 (0-5/HPF) Ur Epithelial Cells RARE (NONE-FEW) Urine Bacteria RARE (NEGATIVE) Meds: Medications Generic Name Dose Route Start Last Admin Trade Name Freq PRN Reason Stop Dose Admin Sodium Chloride 1,000 mls @ 125 mls/hr 12/06/18 07:15 12/06/18 07:32 Normal Saline IV 50 mls/hr STAT BERYL Administration Sodium Chloride 10 ml 12/06/18 07:01 Saline Flush FLUSH ASDIRECTED PRN Keep Vein Open Sodium Chloride 2.5 ml 12/06/18 07:01 Saline Flush FLUSH ASDIRECTED PRN Keep Vein Open Discontinued Medications Generic Name Dose Route Start Last Admin Trade Name Zaria PRN Reason Stop Dose Admin Furosemide 40 mg 12/06/18 07:24 12/06/18 07:33 Lasix IVPUSH 12/06/18 07:25 40 mg NOW ONE Administration Methylprednisolone Sodium Succinate 125 mg 12/06/18 08:50 12/06/18 08:59 Solu-Medrol IVPUSH 12/06/18 08:51 125 mg ONETIME ONE Administration Departure - Departure Disposition: Refer to Observation Clinical Impression: Hypoxia - Discharge Information Referrals: PCP,None [Primary Care Provider] - Forms: ED Department Discharge <Edwin Marin - Last Filed: 12/06/18 09:29> ED HPI GENERAL MEDICAL PROBLEM - History of Present Illness INITIAL COMMENTS - FREE TEXT/NARRATIVE: I've seen and examined the patient and agree with the above Patient has history of recent pneumonia, admission in mind that, presents with hypoxia and dyspnea 89% on room air at rest after Lasix Patient continues to feel short of breath however no fever chills sweats no chest pain HEENT grossly within normal limits ChestDecreased breath sounds on initial exam CV regular rate and rhythm Abdomen benign Extremities four-inch motion no edema [employer] alert nonfocal Impression Hypoxia Recent history of pneumonia Congestion Patient admitted for further workup and observation ED ROS GENERAL - Review of Systems Review Of Systems: See Below ED EXAM, GENERAL - Physical Exam Exam: See Below Departure - Departure Time of Disposition: 09:29 Condition: Fair
[2018-12-06] MEDS ORDERED: Furosemide 40 MG/4 ML VIAL IVPUSH ONE (07:24)
--- NOTE | 2018-12-06 07:42 | CR ---
INDICATION: Pain. Shortness of breath. TECHNIQUE: AP portable chest x-ray. COMPARISON: Chest x-ray 11/09/2018. FINDINGS: Mild increased opacity in the mid lungs is somewhat nodular and could be inflammatory and is slightly more apparent possibly related to differences in technique. Sternotomy. Heart size upper limits of normal and accentuated by AP portable technique. The patchy infiltrates in the lower lobes right greater than left on prior CT 11/09/2018 not well appreciated on this exam or the prior x-ray. Remainder stable. Dictated by Irineo Leyva MD @ Dec 06 2018 7:41AM Signed by Dr. Irineo Leyva @ Dec 06 2018 7:41AM
[2018-12-06 08:24] LABS: CHLORIDE,CL 99 mmol/L (98-107); SODIUM,NA 134 mmol/L (136-148)
[2018-12-06] MEDS ORDERED: methylPREDNISolone Sodium Succinate 125 MG/2 ML SDV IVPUSH ONE (08:50)
[2018-12-06] MEDS ORDERED: Ondansetron 4 MG Tab.DIS PO PRN (09:48)
[2018-12-06] MEDS ORDERED: Docusate Sodium 100 MG Cap PO PRN (09:48)
[2018-12-06] MEDS ORDERED: Acetaminophen 325 MG Tab PO PRN (09:48)
[2018-12-06] MEDS ORDERED: Temazepam 15 MG Cap PO PRN (09:48)
[2018-12-06] MEDS ORDERED: Albuterol/Ipratropium 3.0-0.5 MG/3 ML Neb Soln NEB PRN (09:48)
[2018-12-06] MEDS ORDERED: oxyCODONE 5 MG Tab PO PRN (09:48)
--- NOTE | 2018-12-06 10:05 | PCM.HP ---
H&P History of Present Illness - General Date of Service: 12/06/18 Admit Problem/Dx: Admission Diagnosis/Problem Admission Diagnosis/Problem Hypoxia Source of Information: Patient, Old Records History Limitations: Reports: No Limitations - History of Present Illness Initial Comments - Free Text/Narative: The patient is a 73-year-old gentleman who had presented to the emergency department with a complaint of shortness of breath and low oxygen. The patient was recently treated earlier this month for pneumonia which was discovered on CT scan. The patient does have a history of COPD. Patient has denied any fever or chills. He says that he has been having a cough that has been productive of yellow to whitish sputum. He is a smoker. The patient also has denied any nausea or vomiting. Onset of Symptoms: Reports: Gradual Duration of Symptoms: Reports: Day(s): Severity: Mild Improves with: Reports: Rest Worsens with: Reports: Movement Bilateral Foot Pain Score (Numeric/FACES): 6 - Related Data Allergies/Adverse Reactions: Allergies Allergy/AdvReac Type Severity Reaction Status Date / Time levofloxacin [From Levaquin] Allergy Itching Verified 11/09/18 21:50 Penicillins Allergy Cannot Verified 11/09/18 21:50 Remember Home Medications: Home Meds Gabapentin [Neurontin] 300 mg PO TID 10/12/17 [History] Lisinopril 10 mg PO DAILY 10/12/17 [History] Metoprolol Succinate [Toprol XL] 25 mg PO BID 10/12/17 [History] Simvastatin [Zocor] 10 mg PO DAILY 08/22/18 [History] Past Medical History HEENT History: Reports: Impaired Vision Other HEENT History: has top and bottom dentures, wears glasses Cardiovascular History: Reports: High Cholesterol, Hypertension, [place] Respiratory History: Reports: Other (See Below) Other Respiratory History: smokes 1 pk of cigarettes per day for over 50 yrs Gastrointestinal History: Reports: Other (See Below) Other Gastrointestinal History: states he is on his last treatment for hepatitis C,h/o elevated LFT'S Genitourinary History: Reports: Prostate Disorder Musculoskeletal History: Reports: Back Pain, Chronic Other Musculoskeletal History: WILLA, chronic leg pain Neurological History: Reports: None Psychiatric History: Reports: Addiction, Other (See Below) Other Psychiatric History: hx ETOH abuse Endocrine/Metabolic History: Reports: None Hematologic History: Reports: None Immunologic History: Reports: None Oncologic (Cancer) History: Reports: None Dermatologic History: Reports: None - Infectious Disease History Infectious Disease History: Reports: Hepatitis C - Past Surgical History Head Surgeries/Procedures: Reports: None HEENT Surgical History: Reports: Naso-Sinus Surgery Cardiovascular Surgical History: Reports: Coronary Artery Bypass, Vascular Surgery, Other (See Below) GI Surgical History: Reports: Appendectomy Male Surgical History: Reports: Other (See Below) Other Male Surgeries/Procedures: Prostate Musculoskeletal Surgical History: Reports: Other (See Below) Other Musculoskeletal Surgeries/Procedures:: left foot - 3 harmmer toe repair Social & Family History - Family History Family Medical History: Noncontributory - Tobacco Use Smoking Status *Q: Current Every Day Smoker Years of Tobacco use: 60 Packs/Tins Daily: 2 Tobacco Use Comment: pt quit smoking 7 days ago - Caffeine Use Caffeine Use: Reports: Coffee - Recreational Drug Use Recreational Drug Use: No H&P Review of Systems - Review of Systems: Review Of Systems: See Below General: Reports: No Symptoms HEENT: Reports: No Symptoms Pulmonary: Reports: Shortness of Breath, Wheezing, Cough, Sputum Cardiovascular: Reports: No Symptoms Gastrointestinal: Reports: No Symptoms Genitourinary: Reports: Hematuria Musculoskeletal: Reports: No Symptoms Skin: Reports: No Symptoms Psychiatric: Reports: No Symptoms Neurological: Reports: No Symptoms Hematologic/Lymphatic: Reports: No Symptoms Immunologic: Reports: No Symptoms Exam - Exam Exam: See Below - Vital Signs Vital Signs: Last Vital Signs Temp 36.1 C 12/06/18 09:44 Pulse 69 12/06/18 09:44 Resp 20 12/06/18 09:44 BP 123/66 12/06/18 09:44 Pulse Ox 95 12/06/18 09:44 Weight: 108.862 kg - Exam Quality Assessment: Supplemental Oxygen, Urinary Catheter (Bellamy placed in the ER. Hematuria.) General: Alert, Oriented, Cooperative, Mild Distress HEENT: Conjunctiva Clear, EACs Clear. No: Mucosa Moist & Valliant (Dry) Neck: Supple, Trachea Midline Lungs: Decreased Breath Sounds, Crackles, Rales Cardiovascular: Regular Rate, Regular Rhythm GI/Abdominal Exam: Normal Bowel Sounds, Soft, Non-Tender, No Distention (Male) Exam: Deferred Rectal (Males) Exam: Deferred Back Exam: Normal Inspection, Full Range of Motion Extremities: Normal Inspection, Normal Range of Motion, No Pedal Edema Skin: Warm, Dry, Intact Neurological: Cranial Nerves Intact Neuro Extensive - Mental Status: Alert, Oriented x3 Psychiatric: Alert, Normal Affect, Normal Mood - Patient Data Lab Results Last 24 hrs: Laboratory Results - last 24 hr 12/06/18 12/06/18 12/06/18 Range/Units 07:42 07:42 07:42 WBC 10.60 (4.0-11.0) K/uL RBC 5.25 (4.50-5.90) M/uL Hgb 16.2 (13.0-17.0) g/dL Hct 47.4 (38.0-50.0) % MCV 90.3 (80.0-98.0) fL MCH 30.9 (27.0-32.0) pg MCHC 34.2 (31.0-37.0) g/dL RDW Std Deviation 50.0 (28.0-62.0) fl RDW Coeff of Sheba 15 (11.0-15.0) % Plt Count 151 (150-400) K/uL MPV 10.90 (7.40-12.00) fL Neut % (Auto) 67.7 (48.0-80.0) % Lymph % (Auto) 20.1 (16.0-40.0) % Nicholas % (Auto) 11.4 (0.0-15.0) % Eos % (Auto) 0.3 (0.0-7.0) % Baso % (Auto) 0.5 (0.0-1.5) % Neut # (Auto) 7.2 H (1.4-5.7) K/uL Lymph # (Auto) 2.1 (0.6-2.4) K/uL Nicholas # (Auto) 1.2 H (0.0-0.8) K/uL Eos # (Auto) 0.0 (0.0-0.7) K/uL Baso # (Auto) 0.1 (0.0-0.1) K/uL Nucleated RBC % 0.0 /100WBC Nucleated RBCs # 0 K/uL INR 0.93 ABG pH (7.35-7.45) ABG pCO2 (35-45) mmHG ABG pO2 (75-100) mmHG ABG HCO3 (22-26) mEq/L ABG Total CO2 ABG Base Excess (-2.0-2.0) Lactate (0.20-2.00) mmol/L Sodium 134 L (136-148) mmol/L Potassium 5.3 H (3.5-5.1) mmol/L Chloride 99 (98-107) mmol/L Carbon Dioxide 22.5 (21.0-32.0) mmol/L BUN 17 (7.0-18.0) mg/dL Creatinine 1.0 (0.8-1.3) mg/dL Est Cr Clr Drug Dosing 73.24 mL/min Estimated GFR (MDRD) > 60.0 ml/min Glucose 108 H (74-106) mg/dL Calcium 9.0 (8.5-10.1) mg/dL Total Bilirubin 0.4 (0.2-1.0) mg/dL AST 32 (15-37) IU/L ALT 26 (14-63) IU/L Alkaline Phosphatase 99 (46-116) U/L Troponin I < 0.050 (0.000-0.056) ng/mL B-Natriuretic Peptide (<100) PG/ML Total Protein 7.9 (6.4-8.2) g/dL Albumin 3.0 L (3.4-5.0) g/dL Globulin 4.9 H (2.6-4.0) g/dL Albumin/Globulin Ratio 0.6 L (0.9-1.6) Urine Color Urine Appearance Urine pH (5.0-8.0) Ur Specific [place] (1.001-1.035) Urine Protein (NEGATIVE) mg/dL Urine Glucose (UA) (NEGATIVE) mg/dL Urine Ketones (NEGATIVE) mg/dL Urine Occult Blood (NEGATIVE) Urine Nitrite (NEGATIVE) Urine Bilirubin (NEGATIVE) Urine Urobilinogen (<2.0) EU/dL Ur Leukocyte Esterase (NEGATIVE) Urine RBC (0-2/HPF) Urine WBC (0-5/HPF) Ur Epithelial Cells (NONE-FEW) Urine Bacteria (NEGATIVE) 12/06/18 12/06/18 12/06/18 Range/Units 07:42 07:42 07:45 WBC (4.0-11.0) K/uL RBC (4.50-5.90) M/uL Hgb (13.0-17.0) g/dL Hct (38.0-50.0) % MCV (80.0-98.0) fL MCH (27.0-32.0) pg MCHC (31.0-37.0) g/dL RDW Std Deviation (28.0-62.0) fl RDW Coeff of Sheba (11.0-15.0) % Plt Count (150-400) K/uL MPV (7.40-12.00) fL Neut % (Auto) (48.0-80.0) % Lymph % (Auto) (16.0-40.0) % Nicholas % (Auto) (0.0-15.0) % Eos % (Auto) (0.0-7.0) % Baso % (Auto) (0.0-1.5) % Neut # (Auto) (1.4-5.7) K/uL Lymph # (Auto) (0.6-2.4) K/uL Nicholas # (Auto) (0.0-0.8) K/uL Eos # (Auto) (0.0-0.7) K/uL Baso # (Auto) (0.0-0.1) K/uL Nucleated RBC % /100WBC Nucleated RBCs # K/uL INR ABG pH 7.454 H (7.35-7.45) ABG pCO2 33 L (35-45) mmHG ABG pO2 64 L (75-100) mmHG ABG HCO3 23 (22-26) mEq/L ABG Total CO2 20.1 ABG Base Excess 0.2 (-2.0-2.0) Lactate 2.6 H (0.20-2.00) mmol/L Sodium (136-148) mmol/L Potassium (3.5-5.1) mmol/L Chloride (98-107) mmol/L Carbon Dioxide (21.0-32.0) mmol/L BUN (7.0-18.0) mg/dL Creatinine (0.8-1.3) mg/dL Est Cr Clr Drug Dosing mL/min Estimated GFR (MDRD) ml/min Glucose (74-106) mg/dL Calcium (8.5-10.1) mg/dL Total Bilirubin (0.2-1.0) mg/dL AST (15-37) IU/L ALT (14-63) IU/L Alkaline Phosphatase (46-116) U/L Troponin I (0.000-0.056) ng/mL B-Natriuretic Peptide 104 H (<100) PG/ML Total Protein (6.4-8.2) g/dL Albumin (3.4-5.0) g/dL Globulin (2.6-4.0) g/dL Albumin/Globulin Ratio (0.9-1.6) Urine Color Urine Appearance Urine pH (5.0-8.0) Ur Specific [place] (1.001-1.035) Urine Protein (NEGATIVE) mg/dL Urine Glucose (UA) (NEGATIVE) mg/dL Urine Ketones (NEGATIVE) mg/dL Urine Occult Blood (NEGATIVE) Urine Nitrite (NEGATIVE) Urine Bilirubin (NEGATIVE) Urine Urobilinogen (<2.0) EU/dL Ur Leukocyte Esterase (NEGATIVE) Urine RBC (0-2/HPF) Urine WBC (0-5/HPF) Ur Epithelial Cells (NONE-FEW) Urine Bacteria (NEGATIVE) 12/06/18 Range/Units 08:13 WBC (4.0-11.0) K/uL RBC (4.50-5.90) M/uL Hgb (13.0-17.0) g/dL Hct (38.0-50.0) % MCV (80.0-98.0) fL MCH (27.0-32.0) pg MCHC (31.0-37.0) g/dL RDW Std Deviation (28.0-62.0) fl RDW Coeff of Sheba (11.0-15.0) % Plt Count (150-400) K/uL MPV (7.40-12.00) fL Neut % (Auto) (48.0-80.0) % Lymph % (Auto) (16.0-40.0) % Nicholas % (Auto) (0.0-15.0) % Eos % (Auto) (0.0-7.0) % Baso % (Auto) (0.0-1.5) % Neut # (Auto) (1.4-5.7) K/uL Lymph # (Auto) (0.6-2.4) K/uL Nicholas # (Auto) (0.0-0.8) K/uL Eos # (Auto) (0.0-0.7) K/uL Baso # (Auto) (0.0-0.1) K/uL Nucleated RBC % /100WBC Nucleated RBCs # K/uL INR ABG pH (7.35-7.45) ABG pCO2 (35-45) mmHG ABG pO2 (75-100) mmHG ABG HCO3 (22-26) mEq/L ABG Total CO2 ABG Base Excess (-2.0-2.0) Lactate (0.20-2.00) mmol/L Sodium (136-148) mmol/L Potassium (3.5-5.1) mmol/L Chloride (98-107) mmol/L Carbon Dioxide (21.0-32.0) mmol/L BUN (7.0-18.0) mg/dL Creatinine (0.8-1.3) mg/dL Est Cr Clr Drug Dosing mL/min Estimated GFR (MDRD) ml/min Glucose (74-106) mg/dL Calcium (8.5-10.1) mg/dL Total Bilirubin (0.2-1.0) mg/dL AST (15-37) IU/L ALT (14-63) IU/L Alkaline Phosphatase (46-116) U/L Troponin I (0.000-0.056) ng/mL B-Natriuretic Peptide (<100) PG/ML Total Protein (6.4-8.2) g/dL Albumin (3.4-5.0) g/dL Globulin (2.6-4.0) g/dL Albumin/Globulin Ratio (0.9-1.6) Urine Color YELLOW Urine Appearance CLEAR Urine pH 6.0 (5.0-8.0) Ur Specific [place] 1.010 (1.001-1.035) Urine Protein NEGATIVE (NEGATIVE) mg/dL Urine Glucose (UA) NEGATIVE (NEGATIVE) mg/dL Urine Ketones NEGATIVE (NEGATIVE) mg/dL Urine Occult Blood LARGE H (NEGATIVE) Urine Nitrite NEGATIVE (NEGATIVE) Urine Bilirubin NEGATIVE (NEGATIVE) Urine Urobilinogen 0.2 (<2.0) EU/dL Ur Leukocyte Esterase NEGATIVE (NEGATIVE) Urine RBC 18-20 (0-2/HPF) Urine WBC 0-1 (0-5/HPF) Ur Epithelial Cells RARE (NONE-FEW) Urine Bacteria RARE (NEGATIVE) Result Diagrams: 12/06/18 07:42 12/06/18 07:42 Zaheer Results Last 24 hrs: Microbiology 12/06/18 08:13 Influenza Type A Antigen Screen - Final Nasopharyngeal Swab NEGATIVE INFLUENZA A VIRUS AG Influenza Type B Antigen Screen - Final NEGATIVE INFLUENZA B VIRUS AG 12/06/18 07:42 Anaerobic Blood Culture - Final Blood - Venous - Lab Draw - Problem List (1) Hypoxia SNOMED Code(s): 604897328 ICD Code: R09.02 - HYPOXEMIA Status: Acute Priority: High Current Visit : Yes (2) Hematuria SNOMED Code(s): 88466485 ICD Code: R31.9 - HEMATURIA, UNSPECIFIED Status: Acute Priority: High Current Visit: Yes Qualifiers: Hematuria type: unspecified type Qualified Code(s): R31.9 - Hematuria, unspecified (3) Hyperkalemia SNOMED Code(s): 22688554 ICD Code: E87.5 - HYPERKALEMIA Status: Acute Priority: High Current Visit: Yes (4) Tobacco abuse SNOMED Code(s): 054658164 ICD Code: Z72.0 - TOBACCO USE Status: Chronic Priority: Medium Current Visit: Yes Problem List Initiated/Reviewed/Updated: Yes Orders Last 24hrs: Active Orders 24 hr Category Date Time Status Admission Status [Patient Status] [ADT] Stat ADT 12/06/18 09:30 Active Cardiac Monitoring [RC] . DIRECTED Care 12/06/18 07:00 Active Cardiac Monitoring [RC] CONTINUOUS Care 12/06/18 09:48 Active EKG 12 Lead [EKG Documentation Completion] [RC] STAT Care 12/06/18 07:25 Active EKG 12 Lead [EKG Documentation Completion] [RC] STAT Care 12/06/18 08:15 Active EKG Documentation Completion [RC] STAT Care 12/06/18 06:58 Active Insert Bellamy Catheter [Insert Urinary Catheter] [OM.PC] Care 12/06/18 08:20 Ordered Stat Oxygen Therapy [RC] PRN Care 12/06/18 09:47 Active Oxygen Therapy [RC] PRN Care 12/06/18 09:49 Active Oxygen Therapy, ED [RC] ASDIRECTED Care 12/06/18 07:00 Active Pulse Oximetry [RC] ASDIRECTED Care 12/06/18 07:00 Active Pulse Oximetry [RC] CONTINUOUS Care 12/06/18 09:48 Active RT Aerosol Therapy [RC] ASDIRECTED Care 12/06/18 09:54 Active Up ad Deya [RC] ASDIRECTED Care 12/06/18 09:48 Active Urinary Catheter Assessment [RC] ASDIRECTED Care 12/06/18 08:20 Active VTE/DVT Education [RC] PER UNIT ROUTINE Care 12/06/18 09:47 Active VTE/DVT Education [RC] PER UNIT ROUTINE Care 12/06/18 09:49 Active Vital Signs [RC] Q4H Care 12/06/18 09:47 Active Vital Signs [RC] Q4H Care 12/06/18 09:49 Active Heart Healthy Diet [DIET] Diet 12/06/18 Lunch Active BLOOD GAS ARTERIAL [BG] Stat Lab 12/06/18 07:00 Ordered CBC WITH AUTO DIFF [HEME] AM Lab 12/07/18 05:11 Ordered COMPREHENSIVE METABOLIC PN,CMP [CHEM] AM Lab 12/07/18 05:11 Ordered CULTURE BLOOD [BC] Stat Lab 12/06/18 07:18 Received CULTURE BLOOD [BC] Stat Lab 12/06/18 07:42 Results Acetaminophen [Tylenol] Med 12/06/18 09:48 Active 650 mg PO Q4H PRN Albuterol/Ipratropium [DuoNeb 3.0-0.5 MG/3 ML] Med 12/06/18 09:48 Active 3 ml NEB Q4HRRT PRN Docusate Sodium [Colace] Med 12/06/18 09:48 Active 100 mg PO BID PRN Enoxaparin [Lovenox] Med 12/06/18 10:00 Active 30 mg SUBCUT Q24H Ondansetron [Zofran ODT] Med 12/06/18 09:48 Active 4 mg PO Q4H PRN Sodium Chloride 0.9% [Normal Saline] 1,000 ml Med 12/06/18 07:15 Active IV STAT Sodium Chloride 0.9% [Saline Flush] Med 12/06/18 07:01 Active 10 ml FLUSH ASDIRECTED PRN Sodium Chloride 0.9% [Saline Flush] Med 12/06/18 07:01 Active 2.5 ml FLUSH ASDIRECTED PRN Temazepam [Restoril] Med 12/06/18 09:48 Active 15 mg PO BEDTIME PRN oxyCODONE Med 12/06/18 09:48 Active 5 mg PO Q4H PRN Blood Culture x2 Reflex Set [OM.PC] Stat Oth 12/06/18 07:00 Ordered Saline Lock Insert [OM.PC] Stat Oth 12/06/18 07:00 Ordered Resuscitation Status Routine Resus Stat 12/06/18 09:47 Ordered Medication Orders Acetaminophen (Tylenol) 650 mg PO Q4H PRN PRN Reason: Pain (Mild 1-3)/fever Albuterol/Ipratropium (Duoneb 3.0-0.5 Mg/3 Ml) 3 ml NEB Q4HRRT PRN PRN Reason: Shortness Of Breath/wheezing Docusate Sodium (Colace) 100 mg PO BID PRN PRN Reason: Constipation Enoxaparin Sodium (Lovenox) 30 mg SUBCUT Q24H BERYL Sodium Chloride (Normal Saline) 1,000 mls @ 125 mls/hr IV STAT BERYL Last Admin: 12/06/18 07:32 Dose: 50 mls/hr Ondansetron HCl (Zofran Odt) 4 mg PO Q4H PRN PRN Reason: nausea, able to take PO Oxycodone HCl (Oxycodone) 5 mg PO Q4H PRN PRN Reason: Pain (moderate 4-6) Sodium Chloride (Saline Flush) 10 ml FLUSH ASDIRECTED PRN PRN Reason: Keep Vein Open Sodium Chloride (Saline Flush) 2.5 ml FLUSH ASDIRECTED PRN PRN Reason: Keep Vein Open Temazepam (Restoril) 15 mg PO BEDTIME PRN PRN Reason: Sleep Assessment/Plan Comment:: The patient is a 73-year-old gentleman who has been admitted to observation secondary to hypoxia. The patient is also to be hyperkalemic on metabolic panel and that should self-correct with gentle fluid hydration. The patient will be kept on saline lock out of concern for pulmonary edema. The patient also has been strongly counseled with regards to smoking cessation. He'll be provided nicotine patch as needed. The patient is also noted to have hematuria in Bellamy. This may be a traumatic insertion however, I've ordered an ultrasound of his kidneys to rule out neoplastic processes. The patient will be kept on continuous pulse oximetry. I will treat this also as a COPD exacerbation for now. Patient will be kept on azithromycin IV 500 mg daily and Solu-Medrol 80 mg IV 3 times a day. The patient will also be kept on Lovenox for DVT prophylaxis. Patient will kept on heart healthy diet as tolerated. He's been encouraged to ambulate. Patient should be appropriate for discharge in 1-2 days.
[2018-12-06] MEDS ORDERED: Azithromycin 500 MG in Sodium Chloride 0.9% 250 ML IV SCH (10:30)
[2018-12-06] MEDS: Enoxaparin 30 MG/0.3 ML Syringe SUBCUT SCH (10:51)
[2018-12-06] MEDS: methylPREDNISolone Sodium Succinate 125 MG/2 ML SDV IV SCH ×2 (10:53→18:26)
[2018-12-06] MEDS: Azithromycin 500 MG in Sodium Chloride 0.9% 250 ML IV SCH (13:09)
[2018-12-06] MEDS: Nicotine 14 MG/24 Hr Patch TRDERM SCH (14:41)
[2018-12-07] MEDS: methylPREDNISolone Sodium Succinate 125 MG/2 ML SDV IV SCH ×3 (02:14→17:51)
--- NOTE | 2018-12-07 06:42 | PCM.PN ---
- General Info Date of Service: 12/07/18 Admission Dx/Problem (Free Text): Admission Diagnosis/Problem Admission Diagnosis/Problem Hypoxia Subjective Update: The patient is a 73-year-old gentleman who presented to the emergency department primarily with hypoxia. He had been recently treated for pneumonia earlier this month. The patient today says that he feels better. He still has had nonproductive cough. The patient also says that his breathing is improved without oxygen. The patient has been tolerating diet. Functional Status: Reports: Pain Controlled - Review of Systems General: Reports: No Symptoms HEENT: Reports: No Symptoms Pulmonary: Reports: No Symptoms Cardiovascular: Reports: No Symptoms Gastrointestinal: Reports: No Symptoms Genitourinary: Reports: No Symptoms Musculoskeletal: Reports: No Symptoms Skin: Reports: No Symptoms Neurological: Reports: No Symptoms Psychiatric: Reports: No Symptoms - Patient Data Vitals - Most Recent: Last Vital Signs Temp 36.8 C 12/07/18 04:00 Pulse 95 12/07/18 04:00 Resp 20 12/07/18 04:00 BP 164/94 H 12/07/18 04:00 Pulse Ox 93 L 12/07/18 04:00 Weight - Most Recent: 104.689 kg I&O - Last 24 Hours: Intake & Output 12/06/18 12/06/18 12/07/18 14:59 22:59 06:59 Intake Total 250 1243 1152 Output Total 900 1500 Balance 250 343 -348 Lab Results Last 24 Hours: Laboratory Results - last 24 hr 12/06/18 12/06/18 12/06/18 Range/Units 07:42 07:42 07:42 WBC 10.60 (4.0-11.0) K/uL RBC 5.25 (4.50-5.90) M/uL Hgb 16.2 (13.0-17.0) g/dL Hct 47.4 (38.0-50.0) % MCV 90.3 (80.0-98.0) fL MCH 30.9 (27.0-32.0) pg MCHC 34.2 (31.0-37.0) g/dL RDW Std Deviation 50.0 (28.0-62.0) fl RDW Coeff of [place] 15 (11.0-15.0) % Plt Count 151 (150-400) K/uL MPV 10.90 (7.40-12.00) fL Neut % (Auto) 67.7 (48.0-80.0) % Lymph % (Auto) 20.1 (16.0-40.0) % [place] % (Auto) 11.4 (0.0-15.0) % Eos % (Auto) 0.3 (0.0-7.0) % Baso % (Auto) 0.5 (0.0-1.5) % Neut # (Auto) 7.2 H (1.4-5.7) K/uL Lymph # (Auto) 2.1 (0.6-2.4) K/uL [place] # (Auto) 1.2 H (0.0-0.8) K/uL Eos # (Auto) 0.0 (0.0-0.7) K/uL Baso # (Auto) 0.1 (0.0-0.1) K/uL Nucleated RBC % 0.0 /100WBC Nucleated RBCs # 0 K/uL INR 0.93 ABG pH (7.35-7.45) ABG pCO2 (35-45) mmHG ABG pO2 (75-100) mmHG ABG HCO3 (22-26) mEq/L ABG Total CO2 ABG Base Excess (-2.0-2.0) Lactate (0.20-2.00) mmol/L Sodium 134 L (136-148) mmol/L Potassium 5.3 H (3.5-5.1) mmol/L Chloride 99 (98-107) mmol/L Carbon Dioxide 22.5 (21.0-32.0) mmol/L BUN 17 (7.0-18.0) mg/dL Creatinine 1.0 (0.8-1.3) mg/dL Est Cr Clr Drug Dosing 73.24 mL/min Estimated GFR (MDRD) > 60.0 ml/min Glucose 108 H (74-106) mg/dL Calcium 9.0 (8.5-10.1) mg/dL Total Bilirubin 0.4 (0.2-1.0) mg/dL AST 32 (15-37) IU/L ALT 26 (14-63) IU/L Alkaline Phosphatase 99 (46-116) U/L Troponin I < 0.050 (0.000-0.056) ng/mL B-Natriuretic Peptide (<100) PG/ML Total Protein 7.9 (6.4-8.2) g/dL Albumin 3.0 L (3.4-5.0) g/dL Globulin 4.9 H (2.6-4.0) g/dL Albumin/Globulin Ratio 0.6 L (0.9-1.6) Urine Color Urine Appearance Urine pH (5.0-8.0) Ur Specific [place] (1.001-1.035) Urine Protein (NEGATIVE) mg/dL Urine Glucose (UA) (NEGATIVE) mg/dL Urine Ketones (NEGATIVE) mg/dL Urine Occult Blood (NEGATIVE) Urine Nitrite (NEGATIVE) Urine Bilirubin (NEGATIVE) Urine Urobilinogen (<2.0) EU/dL Ur Leukocyte Esterase (NEGATIVE) Urine RBC (0-2/HPF) Urine WBC (0-5/HPF) Ur Epithelial Cells (NONE-FEW) Urine Bacteria (NEGATIVE) 12/06/18 12/06/18 12/06/18 Range/Units 07:42 07:42 07:45 WBC (4.0-11.0) K/uL RBC (4.50-5.90) M/uL Hgb (13.0-17.0) g/dL Hct (38.0-50.0) % MCV (80.0-98.0) fL MCH (27.0-32.0) pg MCHC (31.0-37.0) g/dL RDW Std Deviation (28.0-62.0) fl RDW Coeff of She[place] (11.0-15.0) % Plt Count (150-400) K/uL MPV (7.40-12.00) fL Neut % (Auto) (48.0-80.0) % Lymph % (Auto) (16.0-40.0) % [place] % (Auto) (0.0-15.0) % Eos % (Auto) (0.0-7.0) % Baso % (Auto) (0.0-1.5) % Neut # (Auto) (1.4-5.7) K/uL Lymph # (Auto) (0.6-2.4) K/uL [place] # (Auto) (0.0-0.8) K/uL Eos # (Auto) (0.0-0.7) K/uL Baso # (Auto) (0.0-0.1) K/uL Nucleated RBC % /100WBC Nucleated RBCs # K/uL INR ABG pH 7.454 H (7.35-7.45) ABG pCO2 33 L (35-45) mmHG ABG pO2 64 L (75-100) mmHG ABG HCO3 23 (22-26) mEq/L ABG Total CO2 20.1 ABG Base Excess 0.2 (-2.0-2.0) Lactate 2.6 H (0.20-2.00) mmol/L Sodium (136-148) mmol/L Potassium (3.5-5.1) mmol/L Chloride (98-107) mmol/L Carbon Dioxide (21.0-32.0) mmol/L BUN (7.0-18.0) mg/dL Creatinine (0.8-1.3) mg/dL Est Cr Clr Drug Dosing mL/min Estimated GFR (MDRD) ml/min Glucose (74-106) mg/dL Calcium (8.5-10.1) mg/dL Total Bilirubin (0.2-1.0) mg/dL AST (15-37) IU/L ALT (14-63) IU/L Alkaline Phosphatase (46-116) U/L Troponin I (0.000-0.056) ng/mL B-Natriuretic Peptide 104 H (<100) PG/ML Total Protein (6.4-8.2) g/dL Albumin (3.4-5.0) g/dL Globulin (2.6-4.0) g/dL Albumin/Globulin Ratio (0.9-1.6) Urine Color Urine Appearance Urine pH (5.0-8.0) Ur Specific [place] (1.001-1.035) Urine Protein (NEGATIVE) mg/dL Urine Glucose (UA) (NEGATIVE) mg/dL Urine Ketones (NEGATIVE) mg/dL Urine Occult Blood (NEGATIVE) Urine Nitrite (NEGATIVE) Urine Bilirubin (NEGATIVE) Urine Urobilinogen (<2.0) EU/dL Ur Leukocyte Esterase (NEGATIVE) Urine RBC (0-2/HPF) Urine WBC (0-5/HPF) Ur Epithelial Cells (NONE-FEW) Urine Bacteria (NEGATIVE) 0312/06/18 12/06/18 Range/Units 08:13 12:30 18:30 WBC (4.0-11.0) K/uL RBC (4.50-5.90) M/uL Hgb (13.0-17.0) g/dL Hct (38.0-50.0) % MCV (80.0-98.0) fL MCH (27.0-32.0) pg MCHC (31.0-37.0) g/dL RDW Std Deviation (28.0-62.0) fl RDW Coeff of [place] (11.0-15.0) % Plt Count (150-400) K/uL MPV (7.40-12.00) fL Neut % (Auto) (48.0-80.0) % Lymph % (Auto) (16.0-40.0) % [place] % (Auto) (0.0-15.0) % Eos % (Auto) (0.0-7.0) % Baso % (Auto) (0.0-1.5) % Neut # (Auto) (1.4-5.7) K/uL Lymph # (Auto) (0.6-2.4) K/uL [place] # (Auto) (0.0-0.8) K/uL Eos # (Auto) (0.0-0.7) K/uL Baso # (Auto) (0.0-0.1) K/uL Nucleated RBC % /100WBC Nucleated RBCs # K/uL INR ABG pH (7.35-7.45) ABG pCO2 (35-45) mmHG ABG pO2 (75-100) mmHG ABG HCO3 (22-26) mEq/L ABG Total CO2 ABG Base Excess (-2.0-2.0) Lactate 3.0 H 3.1 H (0.20-2.00) mmol/L Sodium (136-148) mmol/L Potassium (3.5-5.1) mmol/L Chloride (98-107) mmol/L Carbon Dioxide (21.0-32.0) mmol/L BUN (7.0-18.0) mg/dL Creatinine (0.8-1.3) mg/dL Est Cr Clr Drug Dosing mL/min Estimated GFR (MDRD) ml/min Glucose (74-106) mg/dL Calcium (8.5-10.1) mg/dL Total Bilirubin (0.2-1.0) mg/dL AST (15-37) IU/L ALT (14-63) IU/L Alkaline Phosphatase (46-116) U/L Troponin I (0.000-0.056) ng/mL B-Natriuretic Peptide (<100) PG/ML Total Protein (6.4-8.2) g/dL Albumin (3.4-5.0) g/dL Globulin (2.6-4.0) g/dL Albumin/Globulin Ratio (0.9-1.6) Urine Color YELLOW Urine Appearance CLEAR Urine pH 6.0 (5.0-8.0) Ur Specific [place] 1.010 (1.001-1.035) Urine Protein NEGATIVE (NEGATIVE) mg/dL Urine Glucose (UA) NEGATIVE (NEGATIVE) mg/dL Urine Ketones NEGATIVE (NEGATIVE) mg/dL Urine Occult Blood LARGE H (NEGATIVE) Urine Nitrite NEGATIVE (NEGATIVE) Urine Bilirubin NEGATIVE (NEGATIVE) Urine Urobilinogen 0.2 (<2.0) EU/dL Ur Leukocyte Esterase NEGATIVE (NEGATIVE) Urine RBC 18-20 (0-2/HPF) Urine WBC 0-1 (0-5/HPF) Ur Epithelial Cells RARE (NONE-FEW) Urine Bacteria RARE (NEGATIVE) 12/06/18 12/07/18 Range/Units 23:43 06:15 WBC 9.69 (4.0-11.0) K/uL RBC 5.71 (4.50-5.90) M/uL Hgb 17.6 H (13.0-17.0) g/dL Hct 51.1 H (38.0-50.0) % MCV 89.5 (80.0-98.0) fL MCH 30.8 (27.0-32.0) pg MCHC 34.4 (31.0-37.0) g/dL RDW Std Deviation 48.5 (28.0-62.0) fl RDW Coeff of [place] 15 (11.0-15.0) % Plt Count 158 (150-400) K/uL MPV 10.20 (7.40-12.00) fL Neut % (Auto) 81.7 H (48.0-80.0) % Lymph % (Auto) 14.2 L (16.0-40.0) % [place] % (Auto) 3.9 (0.0-15.0) % Eos % (Auto) 0.0 (0.0-7.0) % Baso % (Auto) 0.2 (0.0-1.5) % Neut # (Auto) 7.9 H (1.4-5.7) K/uL Lymph # (Auto) 1.4 (0.6-2.4) K/uL [place] # (Auto) 0.4 (0.0-0.8) K/uL Eos # (Auto) 0.0 (0.0-0.7) K/uL Baso # (Auto) 0.0 (0.0-0.1) K/uL Nucleated RBC % 0.0 /100WBC Nucleated RBCs # 0 K/uL INR ABG pH (7.35-7.45) ABG pCO2 (35-45) mmHG ABG pO2 (75-100) mmHG ABG HCO3 (22-26) mEq/L ABG Total CO2 ABG Base Excess (-2.0-2.0) Lactate 1.8 (0.20-2.00) mmol/L Sodium (136-148) mmol/L Potassium (3.5-5.1) mmol/L Chloride (98-107) mmol/L Carbon Dioxide (21.0-32.0) mmol/L BUN (7.0-18.0) mg/dL Creatinine (0.8-1.3) mg/dL Est Cr Clr Drug Dosing mL/min Estimated GFR (MDRD) ml/min Glucose (74-106) mg/dL Calcium (8.5-10.1) mg/dL Total Bilirubin (0.2-1.0) mg/dL AST (15-37) IU/L ALT (14-63) IU/L Alkaline Phosphatase (46-116) U/L Troponin I (0.000-0.056) ng/mL B-Natriuretic Peptide (<100) PG/ML Total Protein (6.4-8.2) g/dL Albumin (3.4-5.0) g/dL Globulin (2.6-4.0) g/dL Albumin/Globulin Ratio (0.9-1.6) Urine Color Urine Appearance Urine pH (5.0-8.0) Ur Specific [place] (1.001-1.035) Urine Protein (NEGATIVE) mg/dL Urine Glucose (UA) (NEGATIVE) mg/dL Urine Ketones (NEGATIVE) mg/dL Urine Occult Blood (NEGATIVE) Urine Nitrite (NEGATIVE) Urine Bilirubin (NEGATIVE) Urine Urobilinogen (<2.0) EU/dL Ur Leukocyte Esterase (NEGATIVE) Urine RBC (0-2/HPF) Urine WBC (0-5/HPF) Ur Epithelial Cells (NONE-FEW) Urine Bacteria (NEGATIVE) Zaheer Results Last 24 Hours: Microbiology 12/06/18 08:13 Influenza Type A Antigen Screen - Final Nasopharyngeal Swab NEGATIVE INFLUENZA A VIRUS AG Influenza Type B Antigen Screen - Final NEGATIVE INFLUENZA B VIRUS AG 12/06/18 07:42 Anaerobic Blood Culture - Final Blood - Venous - Lab Draw Med Orders - Current: Current Medications Acetaminophen (Tylenol) 650 mg PO Q4H PRN PRN Reason: Pain (Mild 1-3)/fever Albuterol/Ipratropium (Duoneb 3.0-0.5 Mg/3 Ml) 3 ml NEB Q4HRRT PRN PRN Reason: Shortness Of Breath/wheezing Docusate Sodium (Colace) 100 mg PO BID PRN PRN Reason: Constipation Enoxaparin Sodium (Lovenox) 30 mg SUBCUT Q24H [facility] Last Admin: 12/06/18 10:51 Dose: 30 mg Gabapentin (Neurontin) 300 mg PO TID [facility] Sodium Chloride (Normal Saline) 1,000 mls @ 75 mls/hr IV ASDIRECTED [facility] Last Admin: 12/06/18 14:40 Dose: 75 mls/hr Azithromycin 500 mg/ Sodium (Chloride) 250 mls @ 250 mls/hr IV Q24H [facility] Last Admin: 12/06/18 13:09 Dose: 250 mls/hr Lisinopril (Prinivil) 10 mg PO DAILY [facility] Methylprednisolone Sodium Succinate (Solu-Medrol) 80 mg IV Q8H [facility] Last Admin: 12/07/18 02:14 Dose: 80 mg Metoprolol Succinate (Toprol Xl) 25 mg PO BID [facility] Nicotine (Habitrol) 14 mg TRDERM DAILY [facility] Last Admin: 12/06/18 14:41 Dose: 14 mg Ondansetron HCl (Zofran Odt) 4 mg PO Q4H PRN PRN Reason: nausea, able to take PO Oxycodone HCl (Oxycodone) 5 mg PO Q4H PRN PRN Reason: Pain (moderate 4-6) Simvastatin (Zocor) 10 mg PO BEDTIME BERYL Sodium Chloride (Saline Flush) 10 ml FLUSH ASDIRECTED PRN PRN Reason: Keep Vein Open Sodium Chloride (Saline Flush) 2.5 ml FLUSH ASDIRECTED PRN PRN Reason: Keep Vein Open Temazepam (Restoril) 15 mg PO BEDTIME PRN PRN Reason: Sleep Discontinued Medications Furosemide (Lasix) 40 mg IVPUSH NOW ONE Stop: 12/06/18 07:25 Last Admin: 12/06/18 07:33 Dose: 40 mg Sodium Chloride (Normal Saline) 1,000 mls @ 125 mls/hr IV STAT [facility] Last Admin: 12/06/18 07:32 Dose: 50 mls/hr Azithromycin 500 mg/ Sodium (Chloride) 250 mls @ 250 mls/hr IV Q24H [facility] Last Admin: 12/06/18 13:35 Dose: Not Given Methylprednisolone Sodium Succinate (Solu-Medrol) 125 mg IVPUSH ONETIME ONE Stop: 12/06/18 08:51 Last Admin: 12/06/18 08:59 Dose: 125 mg - Exam Quality Assessment: No: Supplemental Oxygen General: Alert, Oriented, Cooperative, No Acute Distress HEENT: Pupils Equal, Pupils Reactive. No: Mucous Membr. Moist/[place] (Dry) Neck: Supple, Trachea Midline Lungs: Normal Respiratory Effort, Rales (Bi basilar) Cardiovascular: Regular Rate, Regular Rhythm GI/Abdominal Exam: Normal Bowel Sounds, Soft, No Distention (Male) Exam: Deferred Back Exam: Normal Inspection Extremities: Normal Inspection, No Pedal Edema Skin: Warm, Dry, Intact Neurological: No New Focal Deficit Psy/Mental Status: Alert, Normal Affect, Normal Mood - Problem List & Annotations (1) COPD (chronic obstructive pulmonary disease) case management patient SNOMED Code(s): 329319165, 324030140, 044274666 Code(s): BZD4506 - Status: Acute Priority: High Current Visit: Yes (2) Hypoxia SNOMED Code(s): 129158162 Code(s): R09.02 - HYPOXEMIA Status: Resolved Priority: High Current Visit: Yes (3) Hyperkalemia SNOMED Code(s): 48006473 Code(s): E87.5 - HYPERKALEMIA Status: Resolved Priority: High Current Visit: Yes (4) Tobacco abuse SNOMED Code(s): 360899794 Code(s): Z72.0 - TOBACCO USE Status: Chronic Priority: Medium Current Visit: Yes (5) Hematuria SNOMED Code(s): 14577776 Code(s): R31.9 - HEMATURIA, UNSPECIFIED Status: Acute Priority: High Current Visit: Yes Qualifiers: Hematuria type: unspecified type Qualified Code(s): R31.9 - Hematuria, unspecified - Problem List Review Problem List Initiated/Reviewed/Updated: Yes - My Orders Last 24 Hours: My Active Orders 12/06/18 09:47 Oxygen Therapy [RC] PRN Vital Signs [RC] Q4H Resuscitation Status Routine 12/06/18 09:48 Cardiac Monitoring [RC] CONTINUOUS Pulse Oximetry [RC] CONTINUOUS Up ad Deya [RC] ASDIRECTED Acetaminophen [Tylenol] 650 mg PO Q4H PRN Albuterol/Ipratropium [DuoNeb 3.0-0.5 MG/3 ML] 3 ml NEB Q4HRRT PRN Docusate Sodium [Colace] 100 mg PO BID PRN Ondansetron [Zofran ODT] 4 mg PO Q4H PRN Temazepam [Restoril] 15 mg PO BEDTIME PRN oxyCODONE 5 mg PO Q4H PRN 12/06/18 09:49 VTE/DVT Education [RC] PER UNIT ROUTINE 12/06/18 09:54 RT Aerosol Therapy [RC] ASDIRECTED 12/06/18 10:00 Enoxaparin [Lovenox] 30 mg SUBCUT Q24H 12/06/18 10:07 Retroperitoneal Ltd [US] Routine 12/06/18 10:30 Telemetry Monitoring [Cardiac Monitoring] [RC] Q8H methylPREDNISolone Sod Succ [Solu-MEDROL] 80 mg IV Q8H 12/06/18 11:30 Nicotine [Habitrol] 14 mg TRDERM DAILY Sodium Chloride 0.9% [Normal Saline] 1,000 ml IV ASDIRECTED 12/06/18 13:00 Azithromycin [Zithromax] 500 mg Sodium Chloride 0.9% [Normal Saline] 250 ml IV Q24H 12/06/18 Lunch Heart Healthy Diet [DIET] 12/07/18 06:15 COMPREHENSIVE METABOLIC PN,CMP [CHEM] AM 12/07/18 09:00 Lisinopril [Prinivil] 10 mg PO DAILY Metoprolol Succinate [Toprol XL] 25 mg PO BID 12/07/18 14:00 Gabapentin [Neurontin] 300 mg PO TID 12/07/18 21:00 Simvastatin [Zocor] 10 mg PO BEDTIME - Plan Plan:: The patient is a 73-year-old gentleman who has been admitted to observation secondary to hypoxia. The patient is also to be hyperkalemic on metabolic panel and that should self-correct with gentle fluid hydration. The patient will be kept on saline lock out of concern for pulmonary edema. The patient also has been strongly counseled with regards to smoking cessation. He'll be provided nicotine patch as needed. The patient is also noted to have hematuria in [place]. This may be a traumatic insertion however, I've ordered an ultrasound of his kidneys to rule out neoplastic processes. The patient will be kept on continuous pulse oximetry. I will treat this also as a COPD exacerbation for now. Patient will be kept on azithromycin IV 500 mg daily and Solu-Medrol 80 mg IV 3 times a day. The patient will also be kept on Lovenox for DVT prophylaxis. Patient will kept on heart healthy diet as tolerated. He's been encouraged to ambulate. Patient should be appropriate for discharge in 1-2 days. The patient is a 73-year-old gentleman who is doing much better today. The patient's hypoxia has improved and he has been saturating at 93% on room air. The patient's hyperkalemia has resolved with fluids and I've ordered repeat laboratory testings to include a CBC and a basic metabolic panel for tomorrow morning. The patient will be kept on his antibiotics and Solu-Medrol for now. I' ve also ordered repeat chest x-ray for today. Patient has been encouraged to ambulate. Patient should be appropriate for discharge in 1-2 days. The patient will also be kept on DVT prophylaxis.
[2018-12-07 07:05] LABS: CHLORIDE,CL 102 mmol/L (98-107); SODIUM,NA 140 mmol/L (136-148)
--- NOTE | 2018-12-07 09:44 | CR ---
INDICATION: Pneumonia. Two-view chest x-ray. COMPARISON: Chest x-ray 12/06/2018. Chest x-ray 10/13/2017 Findings: Normal cardiac mediastinal silhouette. Median sternotomy. Stable nodular opacity in the mid lungs. This could represent persist inflammatory process, possibly calcified pleural plaques would be another consideration. This is unchanged from 10/13/2017. Impression: No acute pulmonary process Stable nodular opacities in the upper mid lungs unchanged in 2018 possibly reflecting calcified pleural plaques however consider CT imaging to confirm. Dictated by Gracy Alvarez MD @ Dec 07 2018 9:39AM Signed by Dr. Gracy Alvarez @ Dec 07 2018 9:43AM
[2018-12-07] MEDS: Enoxaparin 30 MG/0.3 ML Syringe SUBCUT SCH (10:11)
[2018-12-07] MEDS: Lisinopril 10 MG Tab PO SCH (10:16)
[2018-12-07] MEDS: Nicotine 14 MG/24 Hr Patch TRDERM SCH (10:19)
[2018-12-07] MEDS: Metoprolol Succinate 25 MG Tab.ER PO SCH ×2 (10:20→21:55)
[2018-12-07] MEDS: Azithromycin 500 MG in Sodium Chloride 0.9% 250 ML IV SCH (12:20)
[2018-12-07] MEDS: Gabapentin 300 MG Cap PO SCH ×2 (13:31→21:54)
--- NOTE | 2018-12-07 16:26 | US ---
INDICATION: Hematuria. FINDINGS: The right kidney measures 11.1 cm in length and left kidney 11.4 cm in length. There is no hydronephrosis identified bilaterally. Cortex appears relatively well preserved. No significant cortical scarring is seen. The urinary bladder is decompressed with a [place] catheter. Left-sided ureteric jet is identified. Right-sided ureteric jet is not identified. IMPRESSION: The kidney size is symmetric and within normal limits. Cortex is preserved. There is no hydronephrosis noted bilaterally. Urinary bladder is decompressed. Dictated by Aftab Banks MD @ Dec 07 2018 4:22PM Signed by Dr. Aftab Banks @ Dec 07 2018 4:25PM
[2018-12-07] MEDS ORDERED: Carboxymethylcellulose Sodium 0.5% Ophth Soln 0.4 ML UD Box of 30 EYEBOTH PRN (17:31)
[2018-12-07] MEDS ORDERED: Simvastatin 10 MG Tab PO SCH (21:00)
[2018-12-08] MEDS: methylPREDNISolone Sodium Succinate 125 MG/2 ML SDV IV SCH ×2 (03:15→11:26)
[2018-12-08] MEDS: Gabapentin 300 MG Cap PO SCH ×2 (06:57→14:01)
[2018-12-08 06:59] LABS: CHLORIDE,CL 101 mmol/L (98-107); SODIUM,NA 136 mmol/L (136-148)
[2018-12-08] MEDS ORDERED: Sodium Polystyrene Sulfonate 15 GM/60 ML Susp 60 ML Bot PO ONE (08:18)
[2018-12-08] MEDS: Nicotine 14 MG/24 Hr Patch TRDERM SCH (08:35)
[2018-12-08] MEDS: Lisinopril 10 MG Tab PO SCH (08:39)
[2018-12-08] MEDS: Metoprolol Succinate 25 MG Tab.ER PO SCH (08:42)
[2018-12-08] MEDS ORDERED: Enoxaparin 40 MG/0.4 ML Syringe SUBCUT SCH (09:00)
[2018-12-08 11:04] VITALS: BP 121/63
[2018-12-08] MEDS ORDERED: Azithromycin 500 MG in Sodium Chloride 0.9% 250 ML IV SCH (13:00)
--- NOTE | 2018-12-08 15:01 | PCM.DCSUM1 ---
<Diana Benavides - Last Filed: 12/08/18 15:10> Discharge Summary - Hospital Course HPI Initial Comments: Admission Date: 12/06/18 Discharge Date: 12/08/18 Admission Diagnosis: 1. Hypoxia secondary to COPD exacerbation 2. Hyperkalemia 3. Hematuria 4. Nicotine dependance 5. Chronic conditions- HTN, hyperlipidemia Discharge Diagnosis: 1. Hypoxia secondary to COPD exacerbation- resolved 2. Hyperkalemia- resolved 3. Hematuria 4. Nicotine dependance 5. Chronic conditions- HTN, hyperlipidemia Procedures: None Consults: None Hospital Course: The patient is a 73 year old male with COPD who presented to the ER with shortness of breath. He had been treated for pneumonia 1 month prior. In the ER, he did not have white count, was hyperkalemia, influenza negative, had an elevated lactate, and CXR showed patchy infiltrate of the lower lobes, right greater than left. He was requiring 5 L of oxygen in the ER. He was admitted to the medical surgical floor. He was treated for COPD exacerbation with duonebs, IV steriods, and Azithromycin. He was able to be weaned off oxygen and was satting above 90% on room air. As a result of his steroids his white count did trend up but his lactate had resolved by time of discharge. A repeat CXR was done which showed stable nodular opacities, possibly pleural plaques. Radiology recommended followup with CT. This should be done as an outpatient. For his hyperkalemia, he was initially treated with IVF and his level returned back to baseline. On day of discharge, his potassium was elevated again. He was given one time dose of Kayexalate and his potassium level was rechecked and normalized. His lisinopril was held due to hyperkalemia and his blood pressure was under control without it. He did have blood in his urine, but he did have a catheter placed in the ER. A renal US was done and it showed no acute problems. Blood cultures were drawn and negative. He was placed on a nicotine patch for his nicotine dependance. By day of discharge the patient stated he felt better and wanted to go home. Disposition: Home Discharge Condition: vitals stable, tolerating oral diet, symptoms resolved, hyperkalemia resolved, ambulating without difficulty Discharge Instructions: heart healthy diet as tolerated, activity as tolerated, take medications as prescribed, stop lisinopril until follow up with primary care provider. Symptoms to report to physician include fever/chills, chest pain , shortness of breath, abdominal pain, nausea/vomiting, discharge/drainage, erythema, not improving as expected. Discharge Medications: Gabapentin [Neurontin] 300 mg PO TID 10/12/17 [History] Metoprolol Succinate [Toprol XL] 25 mg PO BID 10/12/17 [History] Simvastatin [Zocor] 10 mg PO BEDTIME 08/22/18 [History] Azithromycin [Zithromax] 250 mg PO DAILY 3 Days #3 tab 12/08/18 [Rx] predniSONE [Prednisone] 40 mg PO DAILY 3 Days #6 tablet 12/08/18 [Rx] Follow-up: PCP within one week Diagnosis: Stroke: No - Discharge Data Discharge Date: 12/08/18 Discharge Disposition: Home, Self-Care 01 Condition: Stable - Patient Instructions Diet: Heart Healthy Diet Activity: As Tolerated Driving: May Drive Today Showering/Bathing: May Shower Notify Provider of: Fever, Increased Pain, Swelling and Redness, Drainage, Nausea and/or Vomiting Other/Special Instructions: Additional symptoms include chest pain, shortness of breath, or abdominal pain. - Discharge Plan *PRESCRIPTION DRUG MONITORING PROGRAM REVIEWED*: No *COPY OF PRESCRIPTION DRUG MONITORING REPORT IN PATIENT JACY: No Prescriptions/Med Rec: Azithromycin [Zithromax] 250 mg PO DAILY 3 Days #3 tab predniSONE [Prednisone] 40 mg PO DAILY 3 Days #6 tablet Home Medications: Home Meds Gabapentin [Neurontin] 300 mg PO TID 10/12/17 [History] Metoprolol Succinate [Toprol XL] 25 mg PO BID 10/12/17 [History] Simvastatin [Zocor] 10 mg PO BEDTIME 08/22/18 [History] Azithromycin [Zithromax] 250 mg PO DAILY 3 Days #3 tab 12/08/18 [Rx] predniSONE [Prednisone] 40 mg PO DAILY 3 Days #6 tablet 12/08/18 [Rx] Oxygen Therapy Mode: Room Air Patient Handouts: Hypoxia, Azithromycin tablets, Prednisone tablets, Community- Acquired Pneumonia, Adult, [id number] Referrals: Anjel Ricketts MD [Resident] - 12/15/18 2:30 pm - Discharge Summary/Plan Comment DC Time >30 min.: No - Patient Data Vitals - Most Recent: Last Vital Signs Temp 97.2 F 12/08/18 11:00 Pulse 71 12/08/18 11:00 Resp 22 H 12/08/18 11:00 BP 121/63 12/08/18 11:00 Pulse Ox 95 12/08/18 13:00 Weight - Most Recent: 104.689 kg I&O - Last 24 hours: Intake & Output 12/08/18 12/08/18 12/08/18 06:59 14:59 22:59 Intake Total 550 240 Output Total 1000 Balance -450 240 Lab Results - Last 24 hrs: Laboratory Results - last 24 hr 12/08/18 12/08/18 12/08/18 Range/Units 06:34 06:34 14:12 WBC 22.23 H (4.0-11.0) K/uL RBC 5.14 (4.50-5.90) M/uL Hgb 16.0 (13.0-17.0) g/dL Hct 46.7 (38.0-50.0) % MCV 90.9 (80.0-98.0) fL MCH 31.1 (27.0-32.0) pg MCHC 34.3 (31.0-37.0) g/dL RDW Std Deviation 50.9 (28.0-62.0) fl RDW Coeff of Sheba 15 (11.0-15.0) % Plt Count 228 (150-400) K/uL MPV 10.20 (7.40-12.00) fL Add Manual Diff YES Neutrophils % (Manual) 87 H (48.0-80.0) % Band Neutrophils % 4 % Lymphocytes % (Manual) 9 L (16.0-40.0) % Nucleated RBC % 0.0 /100WBC Absolute Seg Neuts 19.3 H (1.4-5.7) Band Neutrophils # 0.9 Lymphocytes # (Manual) 2.0 (0.6-2.4) Nucleated RBCs # 0 K/uL Sodium 136 (136-148) mmol/L Potassium 5.8 H 4.4 (3.5-5.1) mmol/L Chloride 101 (98-107) mmol/L Carbon Dioxide 27.8 (21.0-32.0) mmol/L BUN 28 H (7.0-18.0) mg/dL Creatinine 1.0 (0.8-1.3) mg/dL Est Cr Clr Drug Dosing 73.24 mL/min Estimated GFR (MDRD) > 60.0 ml/min Glucose 173 H (74-106) mg/dL Calcium 9.1 (8.5-10.1) mg/dL AVA Results - Last 24 hrs: Microbiology 12/06/18 07:42 Aerobic Blood Culture - Preliminary Blood - Venous - Lab Draw NO GROWTH AFTER 2 DAYS Anaerobic Blood Culture - Final 12/06/18 07:18 Aerobic Blood Culture - Preliminary Blood - Venous NO GROWTH AFTER 2 DAYS Anaerobic Blood Culture - Preliminary NO GROWTH AFTER 2 DAYS Med Orders - Current: Current Medications Acetaminophen (Tylenol) 650 mg PO Q4H PRN PRN Reason: Pain (Mild 1-3)/fever Last Admin: 12/08/18 08:44 Dose: 650 mg Albuterol/Ipratropium (Duoneb 3.0-0.5 Mg/3 Ml) 3 ml NEB Q4HRRT PRN PRN Reason: Shortness Of Breath/wheezing Last Admin: 12/07/18 10:40 Dose: 3 ml Artificial Tears (Refresh Plus 0.5%) 0 each EYEBOTH ASDIRECTED PRN PRN Reason: Dry Eyes Last Admin: 12/07/18 17:52 Dose: 1 drop Docusate Sodium (Colace) 100 mg PO BID PRN PRN Reason: Constipation Enoxaparin Sodium (Lovenox) 40 mg SUBCUT Q24H [facility] Last Admin: 12/08/18 08:46 Dose: 40 mg Gabapentin (Neurontin) 300 mg PO TID [facility] Last Admin: 12/08/18 14:01 Dose: 300 mg Azithromycin 500 mg/ Sodium (Chloride) 250 mls @ 250 mls/hr IV Q24H [facility] Last Admin: 12/08/18 14:00 Dose: 250 mls/hr Methylprednisolone Sodium Succinate (Solu-Medrol) 80 mg IV Q8H [facility] Last Admin: 12/08/18 11:26 Dose: 80 mg Metoprolol Succinate (Toprol Xl) 25 mg PO BID [facility] Last Admin: 12/08/18 08:42 Dose: 25 mg Nicotine (Habitrol) 14 mg TRDERM DAILY [facility] Last Admin: 12/08/18 08:35 Dose: 14 mg Ondansetron HCl (Zofran Odt) 4 mg PO Q4H PRN PRN Reason: nausea, able to take PO Oxycodone HCl (Oxycodone) 5 mg PO Q4H PRN PRN Reason: Pain (moderate 4-6) Simvastatin (Zocor) 10 mg PO BEDTIME [facility] Last Admin: 12/07/18 21:54 Dose: 10 mg Sodium Chloride (Saline Flush) 10 ml FLUSH ASDIRECTED PRN PRN Reason: Keep Vein Open Sodium Chloride (Saline Flush) 2.5 ml FLUSH ASDIRECTED PRN PRN Reason: Keep Vein Open Temazepam (Restoril) 15 mg PO BEDTIME PRN PRN Reason: Sleep Discontinued Medications Enoxaparin Sodium (Lovenox) 30 mg SUBCUT Q24H [facility] Last Admin: 12/07/18 10:11 Dose: 30 mg Furosemide (Lasix) 40 mg IVPUSH NOW ONE Stop: 12/06/18 07:25 Last Admin: 12/06/18 07:33 Dose: 40 mg Sodium Chloride (Normal Saline) 1,000 mls @ 125 mls/hr IV STAT [facility] Last Admin: 12/06/18 07:32 Dose: 50 mls/hr Azithromycin 500 mg/ Sodium (Chloride) 250 mls @ 250 mls/hr IV Q24H [facility] Last Admin: 12/06/18 13:35 Dose: Not Given Sodium Chloride (Normal Saline) 1,000 mls @ 75 mls/hr IV ASDIRECTED [facility] Last Admin: 12/06/18 14:40 Dose: 75 mls/hr Azithromycin 500 mg/ Sodium (Chloride) 250 mls @ 250 mls/hr IV Q24H [facility] Last Admin: 12/07/18 12:20 Dose: 250 mls/hr Lisinopril (Prinivil) 10 mg PO DAILY [facility] Last Admin: 12/08/18 08:39 Dose: 10 mg Methylprednisolone Sodium Succinate (Solu-Medrol) 125 mg IVPUSH ONETIME ONE Stop: 12/06/18 08:51 Last Admin: 12/06/18 08:59 Dose: 125 mg Sodium Polystyrene Sulfonate (Kayexalate) 15 gm PO ONETIME ONE Stop: 12/08/18 08:19 Last Admin: 12/08/18 08:35 Dose: 15 gm <Moises Chopra Last Filed: 12/08/18 17:51> Discharge Summary - Hospital Course HPI Initial Comments: I have examined the patient independently of Diana Benavides DO, clinical medical assistant. I have discussed the case with her. I have reviewed and agree with the plan of care as outlined by her. Please see orders. - Discharge Diagnosis/Problem(s) (1) COPD (chronic obstructive pulmonary disease) case management patient SNOMED Code(s): 268022473, 597628002, 301084835 ICD Code: [id number] - Status: Acute Priority: High (2) Hypoxia SNOMED Code(s): 155617094 ICD Code: R09.02 - HYPOXEMIA Status: Resolved Priority: High (3) Hyperkalemia SNOMED Code(s): 38501235 ICD Code: E87.5 - HYPERKALEMIA Status: Resolved Priority: High (4) Tobacco abuse SNOMED Code(s): 423181141 ICD Code: Z72.0 - TOBACCO USE Status: Chronic Priority: Medium (5) Hematuria SNOMED Code(s): 05381854 ICD Code: R31.9 - HEMATURIA, UNSPECIFIED Status: Acute Priority: High Qualifiers: Hematuria type: unspecified type Qualified Code(s): R31.9 - Hematuria, unspecified - Patient Data Vitals - Most Recent: Last Vital Signs Temp 36.2 C 12/08/18 11:00 Pulse 71 12/08/18 11:00 Resp 22 H 12/08/18 11:00 BP 121/63 12/08/18 11:00 Pulse Ox 95 12/08/18 13:00 I&O - Last 24 hours: Intake & Output 12/08/18 12/08/18 12/08/18 06:59 14:59 22:59 Intake Total 481 625 5435 Output Total 1000 950 Balance -450 240 210 Lab Results - Last 24 hrs: Laboratory Results - last 24 hr 12/08/18 12/08/18 12/08/18 Range/Units 06:34 06:34 14:12 WBC 22.23 H (4.0-11.0) K/uL RBC 5.14 (4.50-5.90) M/uL Hgb 16.0 (13.0-17.0) g/dL Hct 46.7 (38.0-50.0) % MCV 90.9 (80.0-98.0) fL MCH 31.1 (27.0-32.0) pg MCHC 34.3 (31.0-37.0) g/dL RDW Std Deviation 50.9 (28.0-62.0) fl RDW Coeff of Sheba 15 (11.0-15.0) % Plt Count 228 (150-400) K/uL MPV 10.20 (7.40-12.00) fL Add Manual Diff YES Neutrophils % (Manual) 87 H (48.0-80.0) % Band Neutrophils % 4 % Lymphocytes % (Manual) 9 L (16.0-40.0) % Nucleated RBC % 0.0 /100WBC Absolute Seg Neuts 19.3 H (1.4-5.7) Band Neutrophils # 0.9 Lymphocytes # (Manual) 2.0 (0.6-2.4) Nucleated RBCs # 0 K/uL Sodium 136 (136-148) mmol/L Potassium 5.8 H 4.4 (3.5-5.1) mmol/L Chloride 101 (98-107) mmol/L Carbon Dioxide 27.8 (21.0-32.0) mmol/L BUN 28 H (7.0-18.0) mg/dL Creatinine 1.0 (0.8-1.3) mg/dL Est Cr Clr Drug Dosing 73.24 mL/min Estimated GFR (MDRD) > 60.0 ml/min Glucose 173 H (74-106) mg/dL Calcium 9.1 (8.5-10.1) mg/dL AVA Results - Last 24 hrs: Microbiology 12/06/18 07:42 Aerobic Blood Culture - Preliminary Blood - Venous - Lab Draw NO GROWTH AFTER 2 DAYS Anaerobic Blood Culture - Final 12/06/18 07:18 Aerobic Blood Culture - Preliminary Blood - Venous NO GROWTH AFTER 2 DAYS Anaerobic Blood Culture - Preliminary NO GROWTH AFTER 2 DAYS Med Orders - Current: Current Medications Discontinued Medications Acetaminophen (Tylenol) 650 mg PO Q4H PRN PRN Reason: Pain (Mild 1-3)/fever Last Admin: 12/08/18 08:44 Dose: 650 mg Albuterol/Ipratropium (Duoneb 3.0-0.5 Mg/3 Ml) 3 ml NEB Q4HRRT PRN PRN Reason: Shortness Of Breath/wheezing Last Admin: 12/07/18 10:40 Dose: 3 ml Artificial Tears (Refresh Plus 0.5%) 0 each EYEBOTH ASDIRECTED PRN PRN Reason: Dry Eyes Last Admin: 12/07/18 17:52 Dose: 1 drop Docusate Sodium (Colace) 100 mg PO BID PRN PRN Reason: Constipation Enoxaparin Sodium (Lovenox) 30 mg SUBCUT Q24H [facility] Last Admin: 12/07/18 10:11 Dose: 30 mg Enoxaparin Sodium (Lovenox) 40 mg SUBCUT Q24H [facility] Last Admin: 12/08/18 08:46 Dose: 40 mg Furosemide (Lasix) 40 mg IVPUSH NOW ONE Stop: 12/06/18 07:25 Last Admin: 12/06/18 07:33 Dose: 40 mg Gabapentin (Neurontin) 300 mg PO TID [facility] Last Admin: 12/08/18 14:01 Dose: 300 mg Sodium Chloride (Normal Saline) 1,000 mls @ 125 mls/hr IV STAT [facility] Last Admin: 12/06/18 07:32 Dose: 50 mls/hr Azithromycin 500 mg/ Sodium (Chloride) 250 mls @ 250 mls/hr IV Q24H [facility] Last Admin: 12/06/18 13:35 Dose: Not Given Sodium Chloride (Normal Saline) 1,000 mls @ 75 mls/hr IV ASDIRECTED [facility] Last Admin: 12/06/18 14:40 Dose: 75 mls/hr Azithromycin 500 mg/ Sodium (Chloride) 250 mls @ 250 mls/hr IV Q24H [facility] Last Admin: 12/07/18 12:20 Dose: 250 mls/hr Azithromycin 500 mg/ Sodium (Chloride) 250 mls @ 250 mls/hr IV Q24H [facility] Last Admin: 12/08/18 14:00 Dose: 250 mls/hr Lisinopril (Prinivil) 10 mg PO DAILY [facility] Last Admin: 12/08/18 08:39 Dose: 10 mg Methylprednisolone Sodium Succinate (Solu-Medrol) 125 mg IVPUSH ONETIME ONE Stop: 12/06/18 08:51 Last Admin: 12/06/18 08:59 Dose: 125 mg Methylprednisolone Sodium Succinate (Solu-Medrol) 80 mg IV Q8H [facility] Last Admin: 12/08/18 11:26 Dose: 80 mg Metoprolol Succinate (Toprol Xl) 25 mg PO BID [facility] Last Admin: 12/08/18 08:42 Dose: 25 mg Nicotine (Habitrol) 14 mg TRDERM DAILY [facility] Last Admin: 12/08/18 08:35 Dose: 14 mg Ondansetron HCl (Zofran Odt) 4 mg PO Q4H PRN PRN Reason: nausea, able to take PO Oxycodone HCl (Oxycodone) 5 mg PO Q4H PRN PRN Reason: Pain (moderate 4-6) Simvastatin (Zocor) 10 mg PO BEDTIME [facility] Last Admin: 12/07/18 21:54 Dose: 10 mg Sodium Chloride (Saline Flush) 10 ml FLUSH ASDIRECTED PRN PRN Reason: Keep Vein Open Sodium Chloride (Saline Flush) 2.5 ml FLUSH ASDIRECTED PRN PRN Reason: Keep Vein Open Sodium Polystyrene Sulfonate (Kayexalate) 15 gm PO ONETIME ONE Stop: 12/08/18 08:19 Last Admin: 12/08/18 08:35 Dose: 15 gm Temazepam (Restoril) 15 mg PO BEDTIME PRN PRN Reason: Sleep
== END 2018-12-08 16:50 | disposition home or self-care (01) ==
LOC: MW.ED 06:30 → MW.MS 09:41
PROVIDERS: ADMIT Internal Medicine; ATTEND Internal Medicine
DX: J44.1 Chronic obstructive pulmonary disease with (acute) exacerbation (principal); E87.5 Hyperkalemia; R31.9 Hematuria, unspecified; I10 Essential (primary) hypertension; I25.2 Old myocardial infarction; E78.00 Pure hypercholesterolemia, unspecified; F17.210 Nicotine dependence, cigarettes, uncomplicated; Z88.0 Allergy status to penicillin; Z95.1 Presence of aortocoronary bypass graft; Z87.01 Personal history of pneumonia (recurrent); Z79.52 Long term (current) use of systemic steroids; Z79.899 Other long term (current) drug therapy
CPT/HCPCS: 36415; 36600; 71045; 71046; 76775; 80048; 80053; 81001; 82803; 83605; 83880; 84132; 84484; 85025; 85610; 87040; 87804; 93005; 94640; 96361; 96374; 96375; 99285; A9270; J0456; J1650; J1940; J2930; J7040; J7050; 96365; 96372; 96376; 99283; G0378; J7620-GY

== ENCOUNTER 2019-06-15 12:22 | Emergency (ER) | payer MEDICARE ==
[2019-06-15 12:37] VITALS: PULSE 63
--- NOTE | 2019-06-15 12:50 | EDM.PDOC ---
ED HPI GENERAL MEDICAL PROBLEM - General Chief Complaint: Lower Extremity Injury/Pain Stated Complaint: RT FOOT HURT,RT THIGH HURTING Time Seen by Provider: 06/15/19 12:50 Source of Information: Reports: Patient History Limitations: Reports: No Limitations - History of Present Illness INITIAL COMMENTS - FREE TEXT/NARRATIVE: HISTORY AND PHYSICAL: History of present illness: Patient is a 74-year-old male presents to the ED with complaint of right ankle and left thigh pain. He states he has had the left ankle pain for 3 months, states he has broken this ankle in the past requiring surgeries about 10 years ago. He also complains of right posterior and medial thigh pain. States he had lopez bite on the left leg 25 years ago requiring surgeries. He states it started bothering him 1 month ago. He denies recent injury or trauma to either extremity. He take Neurontin for lower extremity neuropathy. He states he is not taking anything OTC for his pain. 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 Patient smokes ppd x 30+ years. History of COPD, denies chest pain or new or worsening shortness of breath. Review of systems: As per history of present illness and below otherwise all systems reviewed and negative. Past medical history: As per history of present illness and as reviewed below otherwise noncontributory. Surgical history: As per history of present illness and as reviewed below otherwise noncontributory. Social history: No reported history of drug or alcohol abuse. Family history: As per history of present illness and as reviewed below otherwise noncontributory. Physical exam: General: Patient sitting comfortably in no acute distress and nontoxic appearing HEENT: Atraumatic, normocephalic, pupils reactive, negative for conjunctival pallor or scleral icterus, mucous membranes moist, throat clear, neck supple, nontender, trachea midline. No meningeal signs. Lungs: Clear to auscultation, breath sounds equal bilaterally, chest nontender. Heart: S1S2, regular, negative for clicks, rubs, or overt murmur. Abdomen: Soft, nondistended, nontender. Negative for masses or hepatosplenomegaly. Negative for costovertebral tenderness. No rigidity, rebound , guarding. Pelvis: Stable nontender. Genitourinary: Deferred. Rectal: Deferred. Extremities: No obvious swelling or deformity to the lower extremities. There is no erythema, warmth, skin is intact. Well healed scarring to the right medial thigh. Atraumatic, negative for cords or calf pain. Neurovascular unremarkable. Neuro: Awake, alert, oriented. Cranial nerves II through XII unremarkable. Cerebellum unremarkable. Motor and sensory unremarkable throughout. Exam nonfocal. Notes: Diagnostics: LE venous doppler US bilateral Therapeutics: [] Prescriptions: Diclofenac Impression: Right ankle pain, left leg pain Plan: take diclofenac as instructed Follow up with primary care provider Return to ED as needed as discussed Definitive disposition and diagnosis as appropriate pending reevaluation and review of above. LEFT LEG Pain Score (Numeric/FACES): 9 - Related Data Allergies Allergy/AdvReac Type Severity Reaction Status Date / Time levofloxacin [From Levaquin] Allergy Itching Verified 06/15/19 12:38 Penicillins Allergy Cannot Verified 06/15/19 12:38 Remember Home Meds: Home Meds Gabapentin [Neurontin] 300 mg PO TID 10/12/17 [History] Metoprolol Succinate [Toprol XL] 25 mg PO BID 10/12/17 [History] Simvastatin [Zocor] 10 mg PO BEDTIME 08/22/18 [History] Diclofenac Sodium [Voltaren] 75 mg PO BIDMEALS 15 Days #30 tab.cr 06/15/19 [Rx] Past Medical History HEENT History: Reports: Impaired Vision Other HEENT History: has top and bottom dentures, wears glasses Cardiovascular History: Reports: High Cholesterol, Hypertension, NC Respiratory History: Reports: Other (See Below) Other Respiratory History: smokes 1 pk of cigarettes per day for over 50 yrs Gastrointestinal History: Reports: Other (See Below) Other Gastrointestinal History: states he is on his last treatment for hepatitis C,h/o elevated LFT'S Genitourinary History: Reports: Prostate Disorder Musculoskeletal History: Reports: Back Pain, Chronic Other Musculoskeletal History: WILLA, chronic leg pain Neurological History: Reports: None Psychiatric History: Reports: Addiction, Other (See Below) Other Psychiatric History: hx ETOH abuse Endocrine/Metabolic History: Reports: None Hematologic History: Reports: None Immunologic History: Reports: None Oncologic (Cancer) History: Reports: None Dermatologic History: Reports: None - Infectious Disease History Infectious Disease History: Reports: Chicken Pox - Past Surgical History Head Surgeries/Procedures: Reports: None HEENT Surgical History: Reports: Naso-Sinus Surgery Cardiovascular Surgical History: Reports: Coronary Artery Bypass, Vascular Surgery, Other (See Below) GI Surgical History: Reports: Appendectomy Male Surgical History: Reports: Other (See Below) Other Male Surgeries/Procedures: Prostate Musculoskeletal Surgical History: Reports: Other (See Below) Other Musculoskeletal Surgeries/Procedures:: left foot - 3 harmmer toe repair Social & Family History - Family History Family Medical History: Noncontributory - Caffeine Use Caffeine Use: Reports: Coffee, Soda, Tea - Recreational Drug Use Recreational Drug Use: Yes Recreational Drug Type: Reports: Marijuana/Hashish, Methamphetamine Review of Systems - Review of Systems Review Of Systems: ROS reveals no pertinent complaints other than HPI. ED EXAM, GENERAL - Physical Exam Exam: See Below (see dictation) Course - Vital Signs Last Recorded V/S: Last Vital Signs Temp 96.8 F 06/15/19 12:36 Pulse 63 06/15/19 12:36 Resp 20 06/15/19 12:36 BP 146/78 H 06/15/19 12:36 Pulse Ox 95 06/15/19 12:36 Departure - Departure Time of Disposition: 14:21 Disposition: Home, Self-Care 01 Condition: Good Clinical Impression: Right ankle pain, Leg pain, left - Discharge Information Referrals: PCP,None [Primary Care Provider] - Forms: ED Department Discharge Additional Instructions: The following information is given to patients seen in the emergency department who are being discharged to home. This information is to outline your options for follow-up care. We provide all patients seen in our emergency department with a follow-up referral. The need for follow-up, as well as the timing and circumstances, are variable depending upon the specifics of your emergency department visit. If you don't have a primary care physician on staff, we will provide you with a referral. We always advise you to contact your personal physician following an emergency department visit to inform them of the circumstance of the visit and for follow-up with them and/or the need for any referrals to a consulting specialist. The emergency department will also refer you to a specialist when appropriate. This referral assures that you have the opportunity for follow-up care with a specialist. All of these measure are taken in an effort to provide you with optimal care, which includes your follow-up. Under all circumstances we always encourage you to contact your private physician who remains a resource for coordinating your care. When calling for follow-up care, please make the office aware that this follow-up is from your recent emergency room visit. If for any reason you are refused follow-up, please contact the [facility] Emergency Department at and asked to speak to the emergency department charge nurse. [facility] [address] [place] [id number] [facility] [address] [place] [id number] take diclofenac as instructed Follow up with primary care provider Return to ED as needed as discussed
--- NOTE | 2019-06-15 14:16 | US ---
Bilateral lower extremity deep venous ultrasound: Duplex and color flow imaging was obtained of the right proximal greater saphenous, common femoral, superficial femoral, popliteal and peroneal and posterior tibial veins. Left common femoral vein, superficial femoral vein, popliteal vein, peroneal and posterior tibial vein also evaluated. Findings: Normal phasic flow, augmentation at compression is seen. Impression: No evidence of deep venous thrombosis within the right or left lower extremities. Diagnostic code #1 MTDD
[2019-06-15 16:40] VITALS: BP 130/77
== END 2019-06-15 14:38 | disposition home or self-care (01) ==
LOC: MW.ED 12:22
DX: M25.571 Pain in right ankle and joints of right foot (principal); M79.652 Pain in left thigh; J44.9 Chronic obstructive pulmonary disease, unspecified; I10 Essential (primary) hypertension; I25.2 Old myocardial infarction; E78.00 Pure hypercholesterolemia, unspecified; F17.210 Nicotine dependence, cigarettes, uncomplicated; Z88.0 Allergy status to penicillin; Z88.1 Allergy status to other antibiotic agents; Z79.899 Other long term (current) drug therapy; Z95.1 Presence of aortocoronary bypass graft
CPT/HCPCS: 93970; 93970-26; 99283-25

== ENCOUNTER 2019-10-20 19:02 | Observation (INO) | payer MEDICARE ==
[2019-10-20] MEDS ORDERED: Sodium Chloride 0.9% 10 ML Syringe FLUSH PRN (19:55)
[2019-10-20] MEDS ORDERED: Sodium Chloride 0.9% 2.5 ML Syringe FLUSH PRN (19:55)
--- NOTE | 2019-10-20 20:06 | EDM.PDOC ---
ED HPI GENERAL MEDICAL PROBLEM - General Chief Complaint: Abdominal Pain Stated Complaint: ABDOMINAL PAIN Time Seen by Provider: 10/20/19 19:55 Source of Information: Reports: Patient History Limitations: Reports: No Limitations - History of Present Illness INITIAL COMMENTS - FREE TEXT/NARRATIVE: HISTORY AND PHYSICAL: History of present illness: Patient is a 74-year-old male presents the ED with complaint abdominal pain and vomiting. Patient states that he had similar symptoms a month ago and was seen in the [facility] and diagnosed with gastroenteritis. He states that he again developed periumbilical and left lower abdominal pain running. States that he had 2 episodes of body emesis today. He has had some nonbloody as well. He states he woke up with sweats but denies fevers. He denies chest pain, shortness of breath, dysuria, hematuria, testicular pain. Patient denies alcohol or tobacco use. He states he does use marijuana and meth. Patient has history of COPD and hypertension. Review of systems: As per history of present illness and below otherwise all systems reviewed and negative. Past medical history: As per history of present illness and as reviewed below otherwise noncontributory. Surgical history: As per history of present illness and as reviewed below otherwise noncontributory. Social history: No reported history of drug or alcohol abuse. Family history: As per history of present illness and as reviewed below otherwise noncontributory. Physical exam: General: Patient sitting comfortably in no acute distress and nontoxic appearing HEENT: Atraumatic, normocephalic, pupils reactive, negative for conjunctival pallor or scleral icterus, mucous membranes moist, throat clear, neck supple, nontender, trachea midline. No meningeal signs. Lungs: Clear to auscultation, breath sounds equal bilaterally, chest nontender. Heart: S1S2, regular, negative for clicks, rubs, or overt murmur. Abdomen: Soft, distended abdomen. Periumbilical and LLQ tenderness to palpation. Negative for masses or hepatosplenomegaly. Negative for costovertebral tenderness. No rigidity, rebound, guarding. Pelvis: Stable nontender. Genitourinary: Deferred. Rectal: Deferred. Extremities: Atraumatic, negative for cords or calf pain. Neurovascular unremarkable. Neuro: Awake, alert, oriented. Cranial nerves II through XII unremarkable. Cerebellum unremarkable. Motor and sensory unremarkable throughout. Exam nonfocal. Notes: Diagnostics: CBC, CMP, lipase, UA, EKG Therapeutics: 4mg Zofran IV 1L NS IV maintenance Cipro IV Flagyl IV Prescriptions: Impression: Abdominal pain, leukocytosis Plan: Discussed with Dr. Jewell, patient will be admitted to observation for leukocytosis and abdominal pain. Definitive disposition and diagnosis as appropriate pending reevaluation and review of above. abdomen Pain Score (Numeric/FACES): 7 - Related Data Allergies Allergy/AdvReac Type Severity Reaction Status Date / Time levofloxacin [From Levaquin] Allergy Itching Verified 10/20/19 19:18 Penicillins Allergy Cannot Verified 10/20/19 19:18 Remember Home Meds: Home Meds Gabapentin [Neurontin] 300 mg PO TID 10/12/17 [History] Metoprolol Succinate [Toprol XL] 25 mg PO BID 10/12/17 [History] Simvastatin [Zocor] 10 mg PO BEDTIME 08/22/18 [History] Lisinopril [Zestril] 1 tab PO BID 10/20/19 [History] Omeprazole 20 mg PO BEDTIME 10/20/19 [History] Past Medical History HEENT History: Reports: Impaired Vision Other HEENT History: has top and bottom dentures, wears glasses Cardiovascular History: Reports: High Cholesterol, Hypertension, [place] Respiratory History: Reports: Other (See Below) Other Respiratory History: smokes 1 pk of cigarettes per day for over 50 yrs Gastrointestinal History: Reports: Other (See Below) Other Gastrointestinal History: states he is on his last treatment for hepatitis C,h/o elevated LFT'S Genitourinary History: Reports: Prostate Disorder Musculoskeletal History: Reports: Back Pain, Chronic Other Musculoskeletal History: WILLA, chronic leg pain Neurological History: Reports: None Psychiatric History: Reports: Addiction, Other (See Below) Other Psychiatric History: hx ETOH abuse Endocrine/Metabolic History: Reports: None Hematologic History: Reports: None Immunologic History: Reports: None Oncologic (Cancer) History: Reports: None Dermatologic History: Reports: None - Infectious Disease History Infectious Disease History: Reports: Hepatitis C, Mumps - Past Surgical History Head Surgeries/Procedures: Reports: None HEENT Surgical History: Reports: Naso-Sinus Surgery Cardiovascular Surgical History: Reports: Coronary Artery Bypass, Vascular Surgery, Other (See Below) Respiratory Surgical History: Reports: None GI Surgical History: Reports: Appendectomy Male Surgical History: Reports: Other (See Below) Other Male Surgeries/Procedures: Prostate Endocrine Surgical History: Reports: None Neurological Surgical History: Reports: None Musculoskeletal Surgical History: Reports: Other (See Below) Other Musculoskeletal Surgeries/Procedures:: left foot - 3 harmmer toe repair Dermatological Surgical History: Reports: None Social & Family History - Family History Family Medical History: Noncontributory - Tobacco Use Smoking Status *Q: Former Smoker Used Tobacco, but Quit: Yes Month/Year Tobacco Last Used: 1 year - Caffeine Use Caffeine Use: Reports: Coffee, Energy Drinks, Soda, Tea - Recreational Drug Use Recreational Drug Use: Yes Recreational Drug Type: Reports: Marijuana/Hashish, Methamphetamine Recreational Drug Use Frequency: Socially ED ROS GENERAL - Review of Systems Review Of Systems: Comprehensive ROS is negative, except as noted in HPI. ED EXAM, GI/ABD - Physical Exam Exam: See Below (see dictation) Course - Vital Signs Last Recorded V/S: Last Vital Signs Temp 97.7 F 10/20/19 22:20 Pulse 77 10/20/19 22:20 Resp 20 10/20/19 22:20 BP 101/70 10/20/19 22:20 Pulse Ox 95 10/20/19 22:20 - Orders/Labs/Meds Orders: Active Orders 24 hr Category Date Time Status CULTURE BLOOD [BC] Stat Lab 10/20/19 21:50 Received CULTURE BLOOD [BC] Stat Lab 10/20/19 22:06 Received Ciprofloxacin in D5W [Cipro in D5W 400 MG/200 ML] 400 Med 10/20/19 22:36 Ordered mg Premix Bag 1 bag IV NOW Sodium Chloride 0.9% [Normal Saline] 1,000 ml Med 10/20/19 22:36 Ordered IV STAT Sodium Chloride 0.9% [Saline Flush] Med 10/20/19 19:55 Active 10 ml FLUSH ASDIRECTED PRN Sodium Chloride 0.9% [Saline Flush] Med 10/20/19 19:55 Active 2.5 ml FLUSH ASDIRECTED PRN diphenhydrAMINE [Benadryl] Med 10/20/19 22:38 Once 25 mg IVPUSH ONETIME ONE metroNIDAZOLE/Normal Saline [Flagyl 500 MG in NS 100 ML Med 10/20/19 22:36 Ordered ] 500 mg Premix Bag 1 bag IV ONETIME Blood Culture x2 Reflex Set [OM.PC] Stat Oth 10/20/19 21:41 Ordered Saline Lock Insert [OM.PC] Stat Ot 10/20/19 19:54 Ordered Medication Orders Sodium Chloride (Saline Flush) 10 ml FLUSH ASDIRECTED PRN PRN Reason: Keep Vein Open Sodium Chloride (Saline Flush) 2.5 ml FLUSH ASDIRECTED PRN PRN Reason: Keep Vein Open Labs: Laboratory Tests 10/20/19 10/20/19 10/20/19 Range/Units 20:05 20:05 20:05 WBC 18.65 H (4.0-11.0) K/uL RBC 5.57 (4.50-5.90) M/uL Hgb 17.6 H (13.0-17.0) g/dL Hct 52.5 H (38.0-50.0) % MCV 94.3 (80.0-98.0) fL MCH 31.6 (27.0-32.0) pg MCHC 33.5 (31.0-37.0) g/dL RDW Std Deviation 48.8 (28.0-62.0) fl RDW Coeff of [place] 14 (11.0-15.0) % Plt Count 195 (150-400) K/uL MPV 10.50 (7.40-12.00) fL Neut % (Auto) 83.1 H (48.0-80.0) % Lymph % (Auto) 8.0 L (16.0-40.0) % [place] % (Auto) 7.8 (0.0-15.0) % Eos % (Auto) 0.9 (0.0-7.0) % Baso % (Auto) 0.2 (0.0-1.5) % Neut # (Auto) 15.5 H (1.4-5.7) K/uL Lymph # (Auto) 1.5 (0.6-2.4) K/uL [place] # (Auto) 1.5 H (0.0-0.8) K/uL Eos # (Auto) 0.2 (0.0-0.7) K/uL Baso # (Auto) 0.0 (0.0-0.1) K/uL Nucleated RBC % 0.0 /100WBC Nucleated RBCs # 0 K/uL Lactate (0.20-2.00) mmol/L Sodium 141 (136-148) mmol/L Potassium 5.0 (3.5-5.1) mmol/L Chloride 105 (98-107) mmol/L Carbon Dioxide 28.1 (21.0-32.0) mmol/L BUN 21 H (7.0-18.0) mg/dL Creatinine 1.1 (0.8-1.3) mg/dL Est Cr Clr Drug Dosing 65.57 mL/min Estimated GFR (MDRD) > 60.0 ml/min Glucose 120 H (74-106) mg/dL Calcium 9.0 (8.5-10.1) mg/dL Total Bilirubin 0.4 (0.2-1.0) mg/dL AST 22 (15-37) IU/L ALT 21 (14-63) IU/L Alkaline Phosphatase 121 H (46-116) U/L Total Protein 7.8 (6.4-8.2) g/dL Albumin 3.6 (3.4-5.0) g/dL Globulin 4.2 H (2.6-4.0) g/dL Albumin/Globulin Ratio 0.9 (0.9-1.6) Lipase 163 (73-393) U/L Urine Color Urine Appearance Urine pH (5.0-8.0) Ur Specific [place] (1.001-1.035) Urine Protein (NEGATIVE) mg/dL Urine Glucose (UA) (NEGATIVE) mg/dL Urine Ketones (NEGATIVE) mg/dL Urine Occult Blood (NEGATIVE) Urine Nitrite (NEGATIVE) Urine Bilirubin (NEGATIVE) Urine Urobilinogen (<2.0) EU/dL Ur Leukocyte Esterase (NEGATIVE) Urine RBC (0-2/HPF) Urine WBC (0-5/HPF) Ur Epithelial Cells (NONE-FEW) Amorphous Sediment (NEGATIVE) Urine Bacteria (NEGATIVE) Urine Mucus (NONE-MOD) 10/20/19 10/20/19 Range/Units 20:20 21:50 WBC (4.0-11.0) K/uL RBC (4.50-5.90) M/uL Hgb (13.0-17.0) g/dL Hct (38.0-50.0) % MCV (80.0-98.0) fL MCH (27.0-32.0) pg MCHC (31.0-37.0) g/dL RDW Std Deviation (28.0-62.0) fl RDW Coeff of [place] (11.0-15.0) % Plt Count (150-400) K/uL MPV (7.40-12.00) fL Neut % (Auto) (48.0-80.0) % Lymph % (Auto) (16.0-40.0) % [place] % (Auto) (0.0-15.0) % Eos % (Auto) (0.0-7.0) % Baso % (Auto) (0.0-1.5) % Neut # (Auto) (1.4-5.7) K/uL Lymph # (Auto) (0.6-2.4) K/uL [place] # (Auto) (0.0-0.8) K/uL Eos # (Auto) (0.0-0.7) K/uL Baso # (Auto) (0.0-0.1) K/uL Nucleated RBC % /100WBC Nucleated RBCs # K/uL Lactate 1.3 (0.20-2.00) mmol/L Sodium (136-148) mmol/L Potassium (3.5-5.1) mmol/L Chloride (98-107) mmol/L Carbon Dioxide (21.0-32.0) mmol/L BUN (7.0-18.0) mg/dL Creatinine (0.8-1.3) mg/dL Est Cr Clr Drug Dosing mL/min Estimated GFR (MDRD) ml/min Glucose (74-106) mg/dL Calcium (8.5-10.1) mg/dL Total Bilirubin (0.2-1.0) mg/dL AST (15-37) IU/L ALT (14-63) IU/L Alkaline Phosphatase (46-116) U/L Total Protein (6.4-8.2) g/dL Albumin (3.4-5.0) g/dL Globulin (2.6-4.0) g/dL Albumin/Globulin Ratio (0.9-1.6) Lipase (73-393) U/L Urine Color YELLOW Urine Appearance CLEAR Urine pH 5.5 (5.0-8.0) Ur Specific [place] >= 1.030 (1.001-1.035) Urine Protein TRACE H (NEGATIVE) mg/dL Urine Glucose (UA) NEGATIVE (NEGATIVE) mg/dL Urine Ketones TRACE H (NEGATIVE) mg/dL Urine Occult Blood NEGATIVE (NEGATIVE) Urine Nitrite NEGATIVE (NEGATIVE) Urine Bilirubin NEGATIVE (NEGATIVE) Urine Urobilinogen 0.2 (<2.0) EU/dL Ur Leukocyte Esterase NEGATIVE (NEGATIVE) Urine RBC 0-2 (0-2/HPF) Urine WBC 2-4 (0-5/HPF) Ur Epithelial Cells OCCASIONAL (NONE-FEW) Amorphous Sediment FEW (NEGATIVE) Urine Bacteria FEW (NEGATIVE) Urine Mucus FEW (NONE-MOD) Meds: Medications Generic Name Dose Route Start Last Admin Trade Name Freq PRN Reason Stop Dose Admin Sodium Chloride 10 ml 10/20/19 19:55 Saline Flush FLUSH ASDIRECTED PRN Keep Vein Open Sodium Chloride 2.5 ml 10/20/19 19:55 Saline Flush FLUSH ASDIRECTED PRN Keep Vein Open Discontinued Medications Generic Name Dose Route Start Last Admin Trade Name Freq PRN Reason Stop Dose Admin Iopamidol 100 ml 10/20/19 21:16 10/20/19 21:17 Isovue Multipack-370 (76%) IVPUSH 10/20/19 21:17 100 ml ONETIME ONE Administration Ondansetron HCl 4 mg 10/20/19 20:43 10/20/19 20:51 Zofran IVPUSH 10/20/19 20:44 4 mg ONETIME ONE Administration Departure - Departure Time of Disposition: 22:42 Disposition: Refer to Observation Condition: Good Clinical Impression: Abdominal pain, Leukocytosis - Discharge Information Referrals: PCP,Not In Area [Primary Care Provider] - Forms: ED Department Discharge Sepsis Event Note - Evaluation Sepsis Screening Result: No Definite Risk - Focused Exam Vital Signs: Vital Signs Temp Pulse Resp BP Pulse Ox 10/20/19 22:20 97.7 F 77 20 101/70 95 10/20/19 19:16 98.0 F 70 18 116/72 97 Date Exam was Performed: 10/20/19 Time Exam was Performed: 22:38 - My Orders Last 24 Hours: My Active Orders 10/20/19 19:54 Saline Lock Insert [OM.PC] Stat 10/20/19 19:55 Sodium Chloride 0.9% [Saline Flush] 10 ml FLUSH ASDIRECTED PRN Sodium Chloride 0.9% [Saline Flush] 2.5 ml FLUSH ASDIRECTED PRN 10/20/19 21:41 Blood Culture x2 Reflex Set [OM.PC] Stat 10/20/19 21:50 CULTURE BLOOD [BC] Stat 10/20/19 22:06 CULTURE BLOOD [BC] Stat 10/20/19 22:36 Ciprofloxacin in D5W [Cipro in D5W 400 MG/200 ML] 400 mg Premix Bag 1 bag IV NOW Sodium Chloride 0.9% [Normal Saline] 1,000 ml IV STAT metroNIDAZOLE/Normal Saline [Flagyl 500 MG in NS 100 ML] 500 mg Premix Bag 1 bag IV ONETIME 10/20/19 22:38 diphenhydrAMINE [Benadryl] 25 mg IVPUSH ONETIME ONE - Assessment/Plan Last 24 Hours: My Active Orders 10/20/19 19:54 Saline Lock Insert [OM.PC] Stat 10/20/19 19:55 Sodium Chloride 0.9% [Saline Flush] 10 ml FLUSH ASDIRECTED PRN Sodium Chloride 0.9% [Saline Flush] 2.5 ml FLUSH ASDIRECTED PRN 10/20/19 21:41 Blood Culture x2 Reflex Set [OM.PC] Stat 10/20/19 21:50 CULTURE BLOOD [BC] Stat 10/20/19 22:06 CULTURE BLOOD [BC] Stat 10/20/19 22:36 Ciprofloxacin in D5W [Cipro in D5W 400 MG/200 ML] 400 mg Premix Bag 1 bag IV NOW Sodium Chloride 0.9% [Normal Saline] 1,000 ml IV STAT metroNIDAZOLE/Normal Saline [Flagyl 500 MG in NS 100 ML] 500 mg Premix Bag 1 bag IV ONETIME 10/20/19 22:38 diphenhydrAMINE [Benadryl] 25 mg IVPUSH ONETIME ONE
[2019-10-20 20:39] LABS: BLOOD UREA NITROGEN,BUN 21 mg/dL (7.0-18.0); CARBON DIOXIDE,CO2 28.1 mmol/L (21.0-32.0); CHLORIDE,CL 105 mmol/L (98-107); GLUCOSE RANDOM 120 mg/dL (74-106); SODIUM,NA 141 mmol/L (136-148)
[2019-10-20] MEDS ORDERED: Ondansetron 4 MG/2 ML SDV IVPUSH ONE (20:43)
[2019-10-20] MEDS ORDERED: Iopamidol 755 MG/ML 200 ML Multipack Bottle IVPUSH ONE (21:16)
--- NOTE | 2019-10-20 21:50 | CT ---
HISTORY: Abdominal pain. COMPARISON: None. TECHNIQUE: Axial images were obtained through the abdomen and pelvis following 100 cc of Isovue-370 intravenous contrast. FINDINGS: There are calcified pleural plaques. Calcified granuloma in the liver. None dilated fluid filled small bowel loops. No evidence for bowel obstruction. Right inguinal hernia containing fat. Small left ventral abdominal hernia containing fat with a mild amount of inflammatory stranding. No evidence for bowel hernia. Small umbilical hernia containing fat only. Bilateral L5 pars defects. Left hip fixation hardware. Degenerative changes in the spine. Impression : 1. Calcified pleural plaques may indicate asbestos exposure. 2. Left ventral hernia containing fat with minimal inflammatory stranding. No evidence for bowel hernia. Please note that all CT scans at this facility use dose modulation, iterative reconstruction, and/or weight-based dosing when appropriate to reduce radiation dose to as low as reasonably achievable. Dictated by Lyubov Braswell MD @ Oct 20 2019 9:49PM Signed by Dr. Lyubov Braswell @ Oct 20 2019 9:49PM
[2019-10-20] MEDS ORDERED: Sodium Chloride 0.9% 1,000 ML IV ONE (22:36)
[2019-10-20] MEDS ORDERED: metroNIDAZOLE/Normal Saline 500 MG in Premix Bag 1 BAG IV ONE (22:36)
[2019-10-20] MEDS ORDERED: Ciprofloxacin in D5W 400 MG in Premix Bag 1 BAG IV STA ×2 (22:36)
[2019-10-20] MEDS ORDERED: diphenhydrAMINE 50 MG/ML SDV IVPUSH ONE (22:38)
[2019-10-21] MEDS ORDERED: Lactated Ringers 1,000 ML IV SCH (00:45)
[2019-10-21 06:24] LABS: CARBON DIOXIDE,CO2 26.9 mmol/L (21.0-32.0); POTASSIUM,K 4.6 mmol/L (3.5-5.1)
[2019-10-21] MEDS: Lactated Ringers 1,000 ML IV SCH ×2 (08:08→20:34)
[2019-10-21] MEDS: metroNIDAZOLE/Normal Saline 500 MG in Premix Bag 1 BAG IV SCH ×2 (08:51→17:04)
[2019-10-21] MEDS: Morphine 2 MG/ML Syringe IVPUSH PRN ×2 (08:54→19:04)
--- NOTE | 2019-10-21 08:57 | PCM.HP.2 ---
H&P History of Present Illness - General Date of Service: 10/21/19 Admit Problem/Dx: Admission Diagnosis/Problem Admission Diagnosis/Problem Abdominal pain, N/V Source of Information: Patient History Limitations: Reports: No Limitations - History of Present Illness Initial Comments - Free Text/Narative: This 74 year old male with pmh of COPD, PAD,CAD with CABG x 3, lumbar decompression laminectomy presented to the ED last night with complaints of abdominal pain and N/V x 1-2 days. He reports he was in [place] a couple weeks to 1 month ago with similar concerns, he reports they said he had gastroenteritis. Family member reports he was vomiting up fecal matter at that time as well. He denies recent antibiotic use or eating out or eating any questionable food recently. he denies any sick contacts. He reports diarrhea which is mucous at times. Emesis at home has been food contents and now to green bile. He denies coffee ground emesis or marquise blood in emesis. He also denies black or bloody stools. Describes the abdominal pain as sharp and crampy at times to LLQ and L midline abdomen. Denies fevers, chills or chest pain. No shortness of breath or urinary concerns. He reports he smokes marijuana a couple times a day as well as uses methamphetamines a couple times a day as well, last time using both was 2 days ago. He denies alcohol use and no tobacco. In the ED significant leukocytosis noted at 18,650, hgb 17.6 hct 50.5. Na 141, K + 5.0 BUN 21, Cr 1.1, Mg 1.[address] revealed small L ventral hernia with mild stranding. He was given IVFs and Ciprofloxacin and Flagyl. Admitted for abdominal pain and leukocytosis. abdomen Pain Score (Numeric/FACES): 5 - Related Data Allergies/Adverse Reactions: Allergies Allergy/AdvReac Type Severity Reaction Status Date / Time levofloxacin [From Levaquin] Allergy Itching Verified 10/21/19 06:13 Penicillins Allergy Cannot Verified 10/21/19 06:13 Remember Home Medications: Home Meds Gabapentin [Neurontin] 300 mg PO TID 10/12/17 [History] Metoprolol Succinate [Toprol XL] 25 mg PO BID 10/12/17 [History] Simvastatin [Zocor] 10 mg PO BEDTIME 08/22/18 [History] Lisinopril [Zestril] 1 tab PO BID 10/20/19 [History] Omeprazole 20 mg PO BEDTIME 10/20/19 [History] Past Medical History HEENT History: Reports: Impaired Vision Other HEENT History: has top and bottom dentures, wears glasses Cardiovascular History: Reports: Bypass, CAD, High Cholesterol, Hypertension, NE. Denies: Blood Clots/VTE/DVT Respiratory History: Reports: COPD Gastrointestinal History: Reports: Hepatitis Genitourinary History: Reports: Prostate Disorder Musculoskeletal History: Reports: Back Pain, Chronic Other Musculoskeletal History: WILLA, chronic leg pain Neurological History: Reports: None Psychiatric History: Reports: Addiction, Other (See Below) Other Psychiatric History: hx ETOH abuse Endocrine/Metabolic History: Reports: Obesity/BMI 30+ Hematologic History: Reports: None Immunologic History: Reports: None Oncologic (Cancer) History: Reports: None Dermatologic History: Reports: None - Infectious Disease History Infectious Disease History: Reports: Hepatitis C (has been treated), Mumps - Past Surgical History Head Surgeries/Procedures: Reports: None HEENT Surgical History: Reports: Naso-Sinus Surgery Cardiovascular Surgical History: Reports: Coronary Artery Bypass, Vascular Surgery Respiratory Surgical History: Reports: None GI Surgical History: Reports: Appendectomy Male Surgical History: Reports: TURP-Transurethral Resection of Prostate Endocrine Surgical History: Reports: None Neurological Surgical History: Reports: Laminectomy (L4-5) Musculoskeletal Surgical History: Reports: Other (See Below) Other Musculoskeletal Surgeries/Procedures:: left foot - 3 hammer toe repair Dermatological Surgical History: Reports: None Social & Family History - Family History Family Medical History: Noncontributory - Tobacco Use Smoking Status *Q: Former Smoker Years of Tobacco use: 65 Used Tobacco, but Quit: Yes Month/Year Tobacco Last Used: 2018 Tobacco Use Comment: patient quit smoking a year ago. - Caffeine Use Caffeine Use: Reports: Coffee, Soda - Alcohol Use Alcohol Use History: Yes Alcohol Use Comment: No longer drinks - Recreational Drug Use Recreational Drug Use: Yes Drug Use in Last 12 Months: Yes Recreational Drug Type: Reports: Marijuana/Hashish, Methamphetamine Recreational Drug Use Frequency: Socially Recreational Drug Last Use: 2 days ago Recreational Drug Route: Reports: Inhaled - Living Situation & Occupation Living situation: Reports: with Significant Other H&P Review of Systems - Review of Systems: Review Of Systems: See Below General: Reports: Malaise, Fatigue. Denies: Fever, Chills Pulmonary: Reports: No Symptoms. Denies: Shortness of Breath Cardiovascular: Reports: No Symptoms. Denies: Chest Pain Gastrointestinal: Reports: Abdominal Pain, Diarrhea, Decreased Appetite, Mucous in Stool, Nausea, Vomiting. Denies: Black Stool, Bloody Stool, Hematemesis Genitourinary: Reports: No Symptoms. Denies: Dysuria, Frequency, Burning Musculoskeletal: Reports: No Symptoms. Denies: Neck Pain Psychiatric: Reports: No Symptoms Neurological: Reports: No Symptoms Hematologic/Lymphatic: Reports: No Symptoms Immunologic: Reports: No Symptoms Exam - Exam Exam: See Below - Vital Signs Vital Signs: Last Vital Signs Temp 97.9 F 10/21/19 07:20 Pulse 92 10/21/19 07:20 Resp 18 10/21/19 07:20 BP 111/67 10/21/19 07:20 Pulse Ox 95 10/21/19 07:20 Weight: 110.223 kg - Exam General: Alert, Oriented, Cooperative Neck: Supple, Trachea Midline Lungs: Clear to Auscultation, Normal Respiratory Effort Cardiovascular: Regular Rate, Regular Rhythm GI/Abdominal Exam: Normal Bowel Sounds, Soft, Tender (LLQ and midline L), Hernia Back Exam: Normal Inspection, Full Range of Motion Extremities: Normal Inspection, Normal Range of Motion, Non-Tender, No Pedal Edema Skin: Warm, Dry, Intact Neuro Extensive - Motor, Sensory, Reflexes: CN II-XII Intact, Normal Gait Psychiatric: Alert, Normal Affect, Normal Mood - Patient Data Lab Results Last 24 hrs: Laboratory Results - last 24 hr 10/20/19 10/20/19 10/20/19 Range/Units 20:05 20:05 20:05 WBC 18.65 H (4.0-11.0) K/uL RBC 5.57 (4.50-5.90) M/uL Hgb 17.6 H (13.0-17.0) g/dL Hct 52.5 H (38.0-50.0) % MCV 94.3 (80.0-98.0) fL MCH 31.6 (27.0-32.0) pg MCHC 33.5 (31.0-37.0) g/dL RDW Std Deviation 48.8 (28.0-62.0) fl RDW Coeff of [place] 14 (11.0-15.0) % Plt Count 195 (150-400) K/uL MPV 10.50 (7.40-12.00) fL Neut % (Auto) 83.1 H (48.0-80.0) % Lymph % (Auto) 8.0 L (16.0-40.0) % [place] % (Auto) 7.8 (0.0-15.0) % Eos % (Auto) 0.9 (0.0-7.0) % Baso % (Auto) 0.2 (0.0-1.5) % Neut # (Auto) 15.5 H (1.4-5.7) K/uL Lymph # (Auto) 1.5 (0.6-2.4) K/uL [place] # (Auto) 1.5 H (0.0-0.8) K/uL Eos # (Auto) 0.2 (0.0-0.7) K/uL Baso # (Auto) 0.0 (0.0-0.1) K/uL Add Manual Diff Neutrophils % (Manual) (48.0-80.0) % Band Neutrophils % % Lymphocytes % (Manual) (16.0-40.0) % Monocytes % (Manual) (0.0-15.0) % Basophils % (Manual) (0.0-1.5) % Nucleated RBC % 0.0 /100WBC Absolute Seg Neuts (1.4-5.7) Band Neutrophils # Lymphocytes # (Manual) (0.6-2.4) Monocytes # (Manual) (0.0-0.8) Basophils # (Manual) (0.0-0.1) Nucleated RBCs # 0 K/uL Lactate (0.20-2.00) mmol/L Sodium 141 (136-148) mmol/L Potassium 5.0 (3.5-5.1) mmol/L Chloride 105 (98-107) mmol/L Carbon Dioxide 28.1 (21.0-32.0) mmol/L BUN 21 H (7.0-18.0) mg/dL Creatinine 1.1 (0.8-1.3) mg/dL Est Cr Clr Drug Dosing 65.57 mL/min Estimated GFR (MDRD) > 60.0 ml/min Glucose 120 H (74-106) mg/dL Calcium 9.0 (8.5-10.1) mg/dL Phosphorus (2.6-4.7) mg/dL Magnesium (1.8-2.4) mg/dL Total Bilirubin 0.4 (0.2-1.0) mg/dL AST 22 (15-37) IU/L ALT 21 (14-63) IU/L Alkaline Phosphatase 121 H (46-116) U/L Total Protein 7.8 (6.4-8.2) g/dL Albumin 3.6 (3.4-5.0) g/dL Globulin 4.2 H (2.6-4.0) g/dL Albumin/Globulin Ratio 0.9 (0.9-1.6) Lipase 163 (73-393) U/L Urine Color Urine Appearance Urine pH (5.0-8.0) Ur Specific [place] (1.001-1.035) Urine Protein (NEGATIVE) mg/dL Urine Glucose (UA) (NEGATIVE) mg/dL Urine Ketones (NEGATIVE) mg/dL Urine Occult Blood (NEGATIVE) Urine Nitrite (NEGATIVE) Urine Bilirubin (NEGATIVE) Urine Urobilinogen (<2.0) EU/dL Ur Leukocyte Esterase (NEGATIVE) Urine RBC (0-2/HPF) Urine WBC (0-5/HPF) Ur Epithelial Cells (NONE-FEW) Amorphous Sediment (NEGATIVE) Urine Bacteria (NEGATIVE) Urine Mucus (NONE-MOD) 10/20/19 10/20/19 10/21/19 Range/Units 20:20 21:50 05:40 WBC 16.78 H (4.0-11.0) K/uL RBC 5.33 (4.50-5.90) M/uL Hgb 16.5 (13.0-17.0) g/dL Hct 50.3 H (38.0-50.0) % MCV 94.4 (80.0-98.0) fL MCH 31.0 (27.0-32.0) pg MCHC 32.8 (31.0-37.0) g/dL RDW Std Deviation 49.4 (28.0-62.0) fl RDW Coeff of [place] 14 (11.0-15.0) % Plt Count 204 (150-400) K/uL MPV 10.70 (7.40-12.00) fL Neut % (Auto) (48.0-80.0) % Lymph % (Auto) (16.0-40.0) % [place] % (Auto) (0.0-15.0) % Eos % (Auto) (0.0-7.0) % Baso % (Auto) (0.0-1.5) % Neut # (Auto) (1.4-5.7) K/uL Lymph # (Auto) (0.6-2.4) K/uL [place] # (Auto) (0.0-0.8) K/uL Eos # (Auto) (0.0-0.7) K/uL Baso # (Auto) (0.0-0.1) K/uL Add Manual Diff YES Neutrophils % (Manual) 53 (48.0-80.0) % Band Neutrophils % 20 % Lymphocytes % (Manual) 10 L (16.0-40.0) % Monocytes % (Manual) 16 H (0.0-15.0) % Basophils % (Manual) 1 (0.0-1.5) % Nucleated RBC % 0.0 /100WBC Absolute Seg Neuts 8.9 H (1.4-5.7) Band Neutrophils # 3.4 Lymphocytes # (Manual) 1.7 (0.6-2.4) Monocytes # (Manual) 2.7 H (0.0-0.8) Basophils # (Manual) 0.2 H (0.0-0.1) Nucleated RBCs # 0 K/uL Lactate 1.3 (0.20-2.00) mmol/L Sodium (136-148) mmol/L Potassium (3.5-5.1) mmol/L Chloride (98-107) mmol/L Carbon Dioxide (21.0-32.0) mmol/L BUN (7.0-18.0) mg/dL Creatinine (0.8-1.3) mg/dL Est Cr Clr Drug Dosing mL/min Estimated GFR (MDRD) ml/min Glucose (74-106) mg/dL Calcium (8.5-10.1) mg/dL Phosphorus (2.6-4.7) mg/dL Magnesium (1.8-2.4) mg/dL Total Bilirubin (0.2-1.0) mg/dL AST (15-37) IU/L ALT (14-63) IU/L Alkaline Phosphatase (46-116) U/L Total Protein (6.4-8.2) g/dL Albumin (3.4-5.0) g/dL Globulin (2.6-4.0) g/dL Albumin/Globulin Ratio (0.9-1.6) Lipase (73-393) U/L Urine Color YELLOW Urine Appearance CLEAR Urine pH 5.5 (5.0-8.0) Ur Specific [place] >= 1.030 (1.001-1.035) Urine Protein TRACE H (NEGATIVE) mg/dL Urine Glucose (UA) NEGATIVE (NEGATIVE) mg/dL Urine Ketones TRACE H (NEGATIVE) mg/dL Urine Occult Blood NEGATIVE (NEGATIVE) Urine Nitrite NEGATIVE (NEGATIVE) Urine Bilirubin NEGATIVE (NEGATIVE) Urine Urobilinogen 0.2 (<2.0) EU/dL Ur Leukocyte Esterase NEGATIVE (NEGATIVE) Urine RBC 0-2 (0-2/HPF) Urine WBC 2-4 (0-5/HPF) Ur Epithelial Cells OCCASIONAL (NONE-FEW) Amorphous Sediment FEW (NEGATIVE) Urine Bacteria FEW (NEGATIVE) Urine Mucus FEW (NONE-MOD) 10/21/19 Range/Units 05:40 WBC (4.0-11.0) K/uL RBC (4.50-5.90) M/uL Hgb (13.0-17.0) g/dL Hct (38.0-50.0) % MCV (80.0-98.0) fL MCH (27.0-32.0) pg MCHC (31.0-37.0) g/dL RDW Std Deviation (28.0-62.0) fl RDW Coeff of [place] (11.0-15.0) % Plt Count (150-400) K/uL MPV (7.40-12.00) fL Neut % (Auto) (48.0-80.0) % Lymph % (Auto) (16.0-40.0) % [place] % (Auto) (0.0-15.0) % Eos % (Auto) (0.0-7.0) % Baso % (Auto) (0.0-1.5) % Neut # (Auto) (1.4-5.7) K/uL Lymph # (Auto) (0.6-2.4) K/uL [place] # (Auto) (0.0-0.8) K/uL Eos # (Auto) (0.0-0.7) K/uL Baso # (Auto) (0.0-0.1) K/uL Add Manual Diff Neutrophils % (Manual) (48.0-80.0) % Band Neutrophils % % Lymphocytes % (Manual) (16.0-40.0) % Monocytes % (Manual) (0.0-15.0) % Basophils % (Manual) (0.0-1.5) % Nucleated RBC % /100WBC Absolute Seg Neuts (1.4-5.7) Band Neutrophils # Lymphocytes # (Manual) (0.6-2.4) Monocytes # (Manual) (0.0-0.8) Basophils # (Manual) (0.0-0.1) Nucleated RBCs # K/uL Lactate (0.20-2.00) mmol/L Sodium 141 (136-148) mmol/L Potassium 4.6 (3.5-5.1) mmol/L Chloride 105 (98-107) mmol/L Carbon Dioxide 26.9 (21.0-32.0) mmol/L BUN 23 H (7.0-18.0) mg/dL Creatinine 1.2 (0.8-1.3) mg/dL Est Cr Clr Drug Dosing 60.11 mL/min Estimated GFR (MDRD) 59.0 ml/min Glucose 121 H (74-106) mg/dL Calcium 8.1 L (8.5-10.1) mg/dL Phosphorus 2.8 (2.6-4.7) mg/dL Magnesium 1.7 L (1.8-2.4) mg/dL Total Bilirubin (0.2-1.0) mg/dL AST (15-37) IU/L ALT (14-63) IU/L Alkaline Phosphatase (46-116) U/L Total Protein (6.4-8.2) g/dL Albumin (3.4-5.0) g/dL Globulin (2.6-4.0) g/dL Albumin/Globulin Ratio (0.9-1.6) Lipase (73-393) U/L Urine Color Urine Appearance Urine pH (5.0-8.0) Ur Specific [place] (1.001-1.035) Urine Protein (NEGATIVE) mg/dL Urine Glucose (UA) (NEGATIVE) mg/dL Urine Ketones (NEGATIVE) mg/dL Urine Occult Blood (NEGATIVE) Urine Nitrite (NEGATIVE) Urine Bilirubin (NEGATIVE) Urine Urobilinogen (<2.0) EU/dL Ur Leukocyte Esterase (NEGATIVE) Urine RBC (0-2/HPF) Urine WBC (0-5/HPF) Ur Epithelial Cells (NONE-FEW) Amorphous Sediment (NEGATIVE) Urine Bacteria (NEGATIVE) Urine Mucus (NONE-MOD) Result Diagrams: 10/21/19 05:40 10/21/19 05:40 Sepsis Event Note - Evaluation Sepsis Screening Result: No Definite Risk - Focused Exam Vital Signs: Vital Signs Temp Pulse Resp BP Pulse Ox 10/21/19 07:20 97.9 F 92 18 111/67 95 10/21/19 04:00 97.8 F 69 16 121/68 96 10/20/19 23:30 97.5 F 72 17 130/60 97 10/20/19 22:52 97.4 F 76 18 110/70 95 10/20/19 22:20 97.7 F 77 20 101/70 95 Date Exam was Performed: 10/21/19 Time Exam was Performed: 11:10 - Problem List (1) Abdominal pain SNOMED Code(s): 50219416 ICD Code: R10.9 - UNSPECIFIED ABDOMINAL PAIN Status: Acute Current Visit : Yes Qualifiers: Abdominal location: left lower quadrant Qualified Code(s): R10.32 - Left lower quadrant pain (2) Leukocytosis SNOMED Code(s): 898980878, 701432758 ICD Code: D72.829 - ELEVATED WHITE BLOOD CELL COUNT, UNSPECIFIED Status: Acute Current Visit: Yes Qualifiers: Leukocytosis type: bandemia Qualified Code(s): D72.825 - Bandemia (3) COPD (chronic obstructive pulmonary disease) SNOMED Code(s): 20504953 ICD Code: J44.9 - CHRONIC OBSTRUCTIVE PULMONARY DISEASE, UNSPECIFIED Status : Chronic Current Visit: Yes Qualifiers: COPD type: unspecified COPD Qualified Code(s): J44.9 - Chronic obstructive pulmonary disease, unspecified (4) PAD (peripheral artery disease) SNOMED Code(s): 120265489 ICD Code: I73.9 - PERIPHERAL VASCULAR DISEASE, UNSPECIFIED Status: Chronic Current Visit: Yes (5) CAD (coronary artery disease) SNOMED Code(s): 57885766 ICD Code: I25.10 - ATHSCL HEART DISEASE OF [place] CORONARY ARTERY W/O ANG PCTRS Status: Chronic Current Visit: Yes Qualifiers: Coronary Disease-Associated Artery/Lesion type: [place] artery [place] vs. transplanted heart: [place] heart Associated angina: without angina Qualified Code(s): I25.10 - Atherosclerotic heart disease of [place] coronary artery without angina pectoris (6) HTN (hypertension) SNOMED Code(s): 07314169 ICD Code: I10 - ESSENTIAL (PRIMARY) HYPERTENSION Status: Chronic Current Visit: Yes Qualifiers: Hypertension type: essential hypertension Qualified Code(s): I10 - Essential (primary) hypertension (7) Hx of CABG SNOMED Code(s): 203617687, 648805886 ICD Code: Z95.1 - PRESENCE OF AORTOCORONARY BYPASS GRAFT Status: Chronic Current Visit: Yes (8) Substance abuse SNOMED Code(s): 57042818 ICD Code: F19.10 - OTHER PSYCHOACTIVE SUBSTANCE ABUSE, UNCOMPLICATED Status : Chronic Current Visit: Yes (9) History of tobacco use SNOMED Code(s): 150993119 ICD Code: Z87.891 - PERSONAL HISTORY OF NICOTINE DEPENDENCE Status: Chronic Current Visit: Yes (10) Chronic back pain SNOMED Code(s): 514642500 ICD Code: M54.9 - DORSALGIA, UNSPECIFIED; G89.29 - OTHER CHRONIC PAIN Status: Acute Current Visit: No Problem List Initiated/Reviewed/Updated: Yes Orders Last 24hrs: Active Orders 24 hr Category Date Time Status Admission Status [Patient Status] [ADT] Stat ADT 10/20/19 22:43 Active Intake and Output [RC] QSHIFT Care 10/21/19 08:00 Active Oxygen Therapy [RC] ASDIRECTED Care 10/21/19 00:27 Active Pulse Oximetry [RC] PRN Care 10/21/19 00:31 Active Telemetry Monitoring [Cardiac Monitoring] [RC] Q8H Care 10/20/19 23:00 Active Vital Signs [RC] Q4H Care 10/21/19 04:00 Active NPO [Nothing Per Oral Diet] [DIET] Diet 10/21/19 Breakfast Active C DIFFICILE AG/TOXIN W/REFLEX [RM] Routine Lab 10/21/19 08:50 Ordered CULTURE BLOOD [BC] Stat Lab 10/20/19 21:50 Received CULTURE BLOOD [BC] Stat Lab 10/20/19 22:06 Received H PYLORI STOOL ANTIGEN [MREF] Routine Lab 10/21/19 08:42 Received STOOL CULTURE/SHIGA TOXIN [MREF] Routine Lab 10/21/19 08:50 Ordered Ciprofloxacin in D5W [Cipro in D5W 400 MG/200 ML] 400 Med 10/21/19 11:00 Active mg Premix Bag 1 bag IV Q12H Lactated Ringers [Ringers, Lactated] 1,000 ml Med 10/21/19 08:00 Active IV Q8H Morphine Med 10/21/19 00:41 Active 2 mg IVPUSH Q4H PRN Pantoprazole [ProTONIX IV] 40 mg Med 10/21/19 09:00 Active Sodium Chloride 0.9% [Normal Saline] 10 ml IV BID Sodium Chloride 0.9% [Saline Flush] Med 10/20/19 19:55 Active 10 ml FLUSH ASDIRECTED PRN Sodium Chloride 0.9% [Saline Flush] Med 10/20/19 19:55 Active 2.5 ml FLUSH ASDIRECTED PRN metroNIDAZOLE/Normal Saline [Flagyl 500 MG in NS 100 ML Med 10/21/19 08:00 Active ] 500 mg Premix Bag 1 bag IV Q8H Blood Culture x2 Reflex Set [OM.PC] Stat Oth 10/20/19 21:41 Ordered Saline Lock Insert [OM.PC] Stat Oth 10/20/19 19:54 Ordered Medication Orders Ciprofloxacin/Dextrose 400 mg/ (Premix) 200 mls @ 200 mls/hr IV Q12H BERYL Metronidazole 500 mg/ Premix 100 mls @ 100 mls/hr IV Q8H BERYL Last Admin: 10/21/19 08:51 Dose: 100 mls/hr Lactated Ringer's (Ringers, Lactated) 1,000 mls @ 125 mls/hr IV Q8H BERYL Last Admin: 10/21/19 08:08 Dose: 125 mls/hr Pantoprazole Sodium 40 mg/ (Sodium Chloride) 10 mls @ 300 mls/hr IV BID BERYL Morphine Sulfate (Morphine) 2 mg IVPUSH Q4H PRN PRN Reason: Pain Last Admin: 10/21/19 08:54 Dose: 2 mg Sodium Chloride (Saline Flush) 10 ml FLUSH ASDIRECTED PRN PRN Reason: Keep Vein Open Sodium Chloride (Saline Flush) 2.5 ml FLUSH ASDIRECTED PRN PRN Reason: Keep Vein Open Assessment/Plan Comment:: This 74 year old male admitted with abdominal pain, N/V, diarrhea and leukocytosis 1. Abdominal pain, likely gastroenteritis - Consult Dr Tee, she will see this afternoon - Stool studies pending, have formed stool this morning, will send for H pylori , cultures. - Continue Ciprofloxacin and Flagyl and IVFs - Clear liquid diet, asking for water. See how he tolerates today - Morphine for pain PRN. Zofran and Compazine IV PRN nausea - Get records from [facility] [place] admission last month - PPI BID IV 2. CAD: Stable - Continue Home medications, Lisinopril, Metoprolol, ASA and Statin - Counseled regarding substance abuse and harmful effects, no current comment in regards to sobriety. 3. Chronic back pain: - Continue Gabapentin. VTE prophylaxis: Heparin Dispo: 1-2 days CODE status: FULL CODE - Mortality Measure Prognosis:: Good
[2019-10-21] MEDS ORDERED: Pantoprazole 40 MG in Sodium Chloride 0.9% 10 ML IV SCH (09:00)
[2019-10-21] MEDS ORDERED: Ondansetron 4 MG/2 ML SDV IVPUSH PRN (09:04)
[2019-10-21] MEDS: Pantoprazole 40 MG in Sodium Chloride 0.9% 10 ML IV SCH ×2 (09:05→21:44)
[2019-10-21] MEDS ORDERED: Prochlorperazine 10 MG/2 ML SDV IVPUSH PRN (09:05)
[2019-10-21] MEDS: Ciprofloxacin in D5W 400 MG in Premix Bag 1 BAG IV SCH ×4 (10:55→23:14)
--- NOTE | 2019-10-21 12:49 | PCM.CONS ---
<Curry Gregg M - Last Filed: 10/21/19 13:07> H&P History of Present Illness - General Date of Service: 10/21/19 Admit Problem/Dx: Admission Diagnosis/Problem Admission Diagnosis/Problem Abdominal pain, N/V Source of Information: Patient History Limitations: Reports: No Limitations - History of Present Illness Initial Comments - Free Text/Narative: 74-year-old male admitted for abdominal pain, vomiting and diarrhea. He has a PMH of COPD, Hepatitis C, HTN, CAD s/p CABG, methamphetamine abuse and marijuana abuse. He reports having LLQ, epigastric and RLQ abdominal pain for the past 1 month. He also vomited twice yesterday and once this morning. The vomit was non-bilious and non-bloody. He reports having diarrhea for the past 2 days. Furthermore, he reports mild pain when urinating. He has also had a mass in his genital region that has been growing in size for the past week. Of note, patient reports going to [facility] approximately 1 month ago and was diagnosed with gastroenteritis. Patient has not had any fevers, chills, SOB, chest pain, blood in stool or blood in urine. On admission, patient found to have a WBC count of 18, 000. Lipase was normal. UA showed trace protein and trace ketones. CT abdomen/pelvis showed left ventral hernia, right inguinal hernia and a small umbilical hernia. Blood and stool cultures currently pending. Patient currently on cipro and flagyl. abdomen Pain Score (Numeric/FACES): 5 - Related Data Allergies/Adverse Reactions: Allergies Allergy/AdvReac Type Severity Reaction Status Date / Time levofloxacin [From Levaquin] Allergy Itching Verified 10/21/19 06:13 Penicillins Allergy Cannot Verified 10/21/19 06:13 Remember Home Medications: Home Meds Gabapentin [Neurontin] 300 mg PO TID 10/12/17 [History] Metoprolol Succinate [Toprol XL] 25 mg PO BID 10/12/17 [History] Simvastatin [Zocor] 10 mg PO BEDTIME 08/22/18 [History] Lisinopril [Zestril] 1 tab PO BID 10/20/19 [History] Omeprazole 20 mg PO BEDTIME 10/20/19 [History] Past Medical History HEENT History: Reports: Impaired Vision Other HEENT History: has top and bottom dentures, wears glasses Cardiovascular History: Reports: Bypass, CAD, High Cholesterol, Hypertension, NC. Denies: Blood Clots/VTE/DVT Respiratory History: Reports: COPD Other Respiratory History: smokes 1 pk of cigarettes per day for over 50 yrs Gastrointestinal History: Reports: Hepatitis Other Gastrointestinal History: states he is on his last treatment for hepatitis C,h/o elevated LFT'S Genitourinary History: Reports: Prostate Disorder Musculoskeletal History: Reports: Back Pain, Chronic Other Musculoskeletal History: WILLA, chronic leg pain Neurological History: Reports: None Psychiatric History: Reports: Addiction, Other (See Below) Other Psychiatric History: hx ETOH abuse Endocrine/Metabolic History: Reports: Obesity/BMI 30+ Hematologic History: Reports: None Immunologic History: Reports: None Oncologic (Cancer) History: Reports: None Dermatologic History: Reports: None - Infectious Disease History Infectious Disease History: Reports: Hepatitis C (has been treated), Mumps - Past Surgical History Head Surgeries/Procedures: Reports: None HEENT Surgical History: Reports: Naso-Sinus Surgery Cardiovascular Surgical History: Reports: Coronary Artery Bypass, Vascular Surgery Respiratory Surgical History: Reports: None GI Surgical History: Reports: Appendectomy Male Surgical History: Reports: TURP-Transurethral Resection of Prostate Endocrine Surgical History: Reports: None Neurological Surgical History: Reports: Laminectomy (L4-5) Musculoskeletal Surgical History: Reports: Other (See Below) Other Musculoskeletal Surgeries/Procedures:: left foot - 3 hammer toe repair Dermatological Surgical History: Reports: None Social & Family History - Family History Family Medical History: Noncontributory - Tobacco Use Smoking Status *Q: Former Smoker Years of Tobacco use: 65 Used Tobacco, but Quit: Yes Month/Year Tobacco Last Used: 2018 Tobacco Use Comment: patient quit smoking a year ago. - Caffeine Use Caffeine Use: Reports: Coffee, Soda - Recreational Drug Use Recreational Drug Use: Yes Drug Use in Last 12 Months: Yes Recreational Drug Type: Reports: Marijuana/Hashish, Methamphetamine Recreational Drug Use Frequency: Socially Recreational Drug Last Use: 2 days ago - Living Situation & Occupation Living situation: Reports: with Significant Other H&P Review of Systems - Review of Systems: Review Of Systems: Comprehensive ROS is negative, except as noted in HPI. Exam - Exam Exam: See Below - Vital Signs Vital Signs: Last Vital Signs Temp 97.9 F 10/21/19 07:25 Pulse 92 10/21/19 07:25 Resp 18 10/21/19 07:25 BP 111/67 10/21/19 07:25 Pulse Ox 95 10/21/19 07:25 Weight: 110.223 kg - Exam General: Alert, Oriented, Cooperative, Other (no acute distress) HEENT: Conjunctiva Clear, EOMI Lungs: Clear to Auscultation, Normal Respiratory Effort Cardiovascular: Regular Rate, Regular Rhythm GI/Abdominal Exam: Normal Bowel Sounds, Soft, No Distention, Other (mild epigastric, LUQ and RLQ ttp.) (Male) Exam: Other (Right inguinal hernia, reducible, non-tender to palpation.) Extremities: Normal Inspection Skin: Warm, Dry, Intact Neuro Extensive - Mental Status: Alert, Oriented x3 - Patient Data Lab Results Last 24 hrs: Laboratory Results - last 24 hr 10/20/19 10/20/19 10/20/19 Range/Units 20:05 20:05 20:05 WBC 18.65 H (4.0-11.0) K/uL RBC 5.57 (4.50-5.90) M/uL Hgb 17.6 H (13.0-17.0) g/dL Hct 52.5 H (38.0-50.0) % MCV 94.3 (80.0-98.0) fL MCH 31.6 (27.0-32.0) pg MCHC 33.5 (31.0-37.0) g/dL RDW Std Deviation 48.8 (28.0-62.0) fl RDW Coeff of [place] 14 (11.0-15.0) % Plt Count 195 (150-400) K/uL MPV 10.50 (7.40-12.00) fL Neut % (Auto) 83.1 H (48.0-80.0) % Lymph % (Auto) 8.0 L (16.0-40.0) % [place] % (Auto) 7.8 (0.0-15.0) % Eos % (Auto) 0.9 (0.0-7.0) % Baso % (Auto) 0.2 (0.0-1.5) % Neut # (Auto) 15.5 H (1.4-5.7) K/uL Lymph # (Auto) 1.5 (0.6-2.4) K/uL [place] # (Auto) 1.5 H (0.0-0.8) K/uL Eos # (Auto) 0.2 (0.0-0.7) K/uL Baso # (Auto) 0.0 (0.0-0.1) K/uL Add Manual Diff Neutrophils % (Manual) (48.0-80.0) % Band Neutrophils % % Lymphocytes % (Manual) (16.0-40.0) % Monocytes % (Manual) (0.0-15.0) % Basophils % (Manual) (0.0-1.5) % Nucleated RBC % 0.0 /100WBC Absolute Seg Neuts (1.4-5.7) Band Neutrophils # Lymphocytes # (Manual) (0.6-2.4) Monocytes # (Manual) (0.0-0.8) Basophils # (Manual) (0.0-0.1) Nucleated RBCs # 0 K/uL Lactate (0.20-2.00) mmol/L Sodium 141 (136-148) mmol/L Potassium 5.0 (3.5-5.1) mmol/L Chloride 105 (98-107) mmol/L Carbon Dioxide 28.1 (21.0-32.0) mmol/L BUN 21 H (7.0-18.0) mg/dL Creatinine 1.1 (0.8-1.3) mg/dL Est Cr Clr Drug Dosing 65.57 mL/min Estimated GFR (MDRD) > 60.0 ml/min Glucose 120 H (74-106) mg/dL Calcium 9.0 (8.5-10.1) mg/dL Phosphorus (2.6-4.7) mg/dL Magnesium (1.8-2.4) mg/dL Total Bilirubin 0.4 (0.2-1.0) mg/dL AST 22 (15-37) IU/L ALT 21 (14-63) IU/L Alkaline Phosphatase 121 H (46-116) U/L Total Protein 7.8 (6.4-8.2) g/dL Albumin 3.6 (3.4-5.0) g/dL Globulin 4.2 H (2.6-4.0) g/dL Albumin/Globulin Ratio 0.9 (0.9-1.6) Lipase 163 (73-393) U/L Urine Color Urine Appearance Urine pH (5.0-8.0) Ur Specific [place] (1.001-1.035) Urine Protein (NEGATIVE) mg/dL Urine Glucose (UA) (NEGATIVE) mg/dL Urine Ketones (NEGATIVE) mg/dL Urine Occult Blood (NEGATIVE) Urine Nitrite (NEGATIVE) Urine Bilirubin (NEGATIVE) Urine Urobilinogen (<2.0) EU/dL Ur Leukocyte Esterase (NEGATIVE) Urine RBC (0-2/HPF) Urine WBC (0-5/HPF) Ur Epithelial Cells (NONE-FEW) Amorphous Sediment (NEGATIVE) Urine Bacteria (NEGATIVE) Urine Mucus (NONE-MOD) 10/20/19 10/20/19 10/21/19 Range/Units 20:20 21:50 05:40 WBC 16.78 H (4.0-11.0) K/uL RBC 5.33 (4.50-5.90) M/uL Hgb 16.5 (13.0-17.0) g/dL Hct 50.3 H (38.0-50.0) % MCV 94.4 (80.0-98.0) fL MCH 31.0 (27.0-32.0) pg MCHC 32.8 (31.0-37.0) g/dL RDW Std Deviation 49.4 (28.0-62.0) fl RDW Coeff of [place] 14 (11.0-15.0) % Plt Count 204 (150-400) K/uL MPV 10.70 (7.40-12.00) fL Neut % (Auto) (48.0-80.0) % Lymph % (Auto) (16.0-40.0) % [place] % (Auto) (0.0-15.0) % Eos % (Auto) (0.0-7.0) % Baso % (Auto) (0.0-1.5) % Neut # (Auto) (1.4-5.7) K/uL Lymph # (Auto) (0.6-2.4) K/uL [place] # (Auto) (0.0-0.8) K/uL Eos # (Auto) (0.0-0.7) K/uL Baso # (Auto) (0.0-0.1) K/uL Add Manual Diff YES Neutrophils % (Manual) 53 (48.0-80.0) % Band Neutrophils % 20 % Lymphocytes % (Manual) 10 L (16.0-40.0) % Monocytes % (Manual) 16 H (0.0-15.0) % Basophils % (Manual) 1 (0.0-1.5) % Nucleated RBC % 0.0 /100WBC Absolute Seg Neuts 8.9 H (1.4-5.7) Band Neutrophils # 3.4 Lymphocytes # (Manual) 1.7 (0.6-2.4) Monocytes # (Manual) 2.7 H (0.0-0.8) Basophils # (Manual) 0.2 H (0.0-0.1) Nucleated RBCs # 0 K/uL Lactate 1.3 (0.20-2.00) mmol/L Sodium (136-148) mmol/L Potassium (3.5-5.1) mmol/L Chloride (98-107) mmol/L Carbon Dioxide (21.0-32.0) mmol/L BUN (7.0-18.0) mg/dL Creatinine (0.8-1.3) mg/dL Est Cr Clr Drug Dosing mL/min Estimated GFR (MDRD) ml/min Glucose (74-106) mg/dL Calcium (8.5-10.1) mg/dL Phosphorus (2.6-4.7) mg/dL Magnesium (1.8-2.4) mg/dL Total Bilirubin (0.2-1.0) mg/dL AST (15-37) IU/L ALT (14-63) IU/L Alkaline Phosphatase (46-116) U/L Total Protein (6.4-8.2) g/dL Albumin (3.4-5.0) g/dL Globulin (2.6-4.0) g/dL Albumin/Globulin Ratio (0.9-1.6) Lipase (73-393) U/L Urine Color YELLOW Urine Appearance CLEAR Urine pH 5.5 (5.0-8.0) Ur Specific [place] >= 1.030 (1.001-1.035) Urine Protein TRACE H (NEGATIVE) mg/dL Urine Glucose (UA) NEGATIVE (NEGATIVE) mg/dL Urine Ketones TRACE H (NEGATIVE) mg/dL Urine Occult Blood NEGATIVE (NEGATIVE) Urine Nitrite NEGATIVE (NEGATIVE) Urine Bilirubin NEGATIVE (NEGATIVE) Urine Urobilinogen 0.2 (<2.0) EU/dL Ur Leukocyte Esterase NEGATIVE (NEGATIVE) Urine RBC 0-2 (0-2/HPF) Urine WBC 2-4 (0-5/HPF) Ur Epithelial Cells OCCASIONAL (NONE-FEW) Amorphous Sediment FEW (NEGATIVE) Urine Bacteria FEW (NEGATIVE) Urine Mucus FEW (NONE-MOD) 10/21/19 Range/Units 05:40 WBC (4.0-11.0) K/uL RBC (4.50-5.90) M/uL Hgb (13.0-17.0) g/dL Hct (38.0-50.0) % MCV (80.0-98.0) fL MCH (27.0-32.0) pg MCHC (31.0-37.0) g/dL RDW Std Deviation (28.0-62.0) fl RDW Coeff of [place] (11.0-15.0) % Plt Count (150-400) K/uL MPV (7.40-12.00) fL Neut % (Auto) (48.0-80.0) % Lymph % (Auto) (16.0-40.0) % [place] % (Auto) (0.0-15.0) % Eos % (Auto) (0.0-7.0) % Baso % (Auto) (0.0-1.5) % Neut # (Auto) (1.4-5.7) K/uL Lymph # (Auto) (0.6-2.4) K/uL [place] # (Auto) (0.0-0.8) K/uL Eos # (Auto) (0.0-0.7) K/uL Baso # (Auto) (0.0-0.1) K/uL Add Manual Diff Neutrophils % (Manual) (48.0-80.0) % Band Neutrophils % % Lymphocytes % (Manual) (16.0-40.0) % Monocytes % (Manual) (0.0-15.0) % Basophils % (Manual) (0.0-1.5) % Nucleated RBC % /100WBC Absolute Seg Neuts (1.4-5.7) Band Neutrophils # Lymphocytes # (Manual) (0.6-2.4) Monocytes # (Manual) (0.0-0.8) Basophils # (Manual) (0.0-0.1) Nucleated RBCs # K/uL Lactate (0.20-2.00) mmol/L Sodium 141 (136-148) mmol/L Potassium 4.6 (3.5-5.1) mmol/L Chloride 105 (98-107) mmol/L Carbon Dioxide 26.9 (21.0-32.0) mmol/L BUN 23 H (7.0-18.0) mg/dL Creatinine 1.2 (0.8-1.3) mg/dL Est Cr Clr Drug Dosing 60.11 mL/min Estimated GFR (MDRD) 59.0 ml/min Glucose 121 H (74-106) mg/dL Calcium 8.1 L (8.5-10.1) mg/dL Phosphorus 2.8 (2.6-4.7) mg/dL Magnesium 1.7 L (1.8-2.4) mg/dL Total Bilirubin (0.2-1.0) mg/dL AST (15-37) IU/L ALT (14-63) IU/L Alkaline Phosphatase (46-116) U/L Total Protein (6.4-8.2) g/dL Albumin (3.4-5.0) g/dL Globulin (2.6-4.0) g/dL Albumin/Globulin Ratio (0.9-1.6) Lipase (73-393) U/L Urine Color Urine Appearance Urine pH (5.0-8.0) Ur Specific [place] (1.001-1.035) Urine Protein (NEGATIVE) mg/dL Urine Glucose (UA) (NEGATIVE) mg/dL Urine Ketones (NEGATIVE) mg/dL Urine Occult Blood (NEGATIVE) Urine Nitrite (NEGATIVE) Urine Bilirubin (NEGATIVE) Urine Urobilinogen (<2.0) EU/dL Ur Leukocyte Esterase (NEGATIVE) Urine RBC (0-2/HPF) Urine WBC (0-5/HPF) Ur Epithelial Cells (NONE-FEW) Amorphous Sediment (NEGATIVE) Urine Bacteria (NEGATIVE) Urine Mucus (NONE-MOD) Result Diagrams: 10/21/19 05:40 10/21/19 05:40 Sepsis Event Note - Evaluation Sepsis Screening Result: No Definite Risk - Focused Exam Vital Signs: Vital Signs Temp Pulse Resp BP Pulse Ox 10/21/19 07:25 97.9 F 92 18 111/67 95 10/21/19 04:00 97.8 F 69 16 121/68 96 Date Exam was Performed: 10/21/19 Time Exam was Performed: 13:07 Consult PN Assessment/Plan Procedures: Procedures ACUTE HEPATITIS PANEL (08/20/14) AIRWAY INHALATION TREATMENT (12/06/18) APPL SURFACE NEUROSTIMULATOR (03/09/15) APPLY SHORT LEG CAST (09/28/14) ASSAY OF BLOOD/URIC ACID (12/22/15) ASSAY OF LACTIC ACID (12/06/18) ASSAY OF LIPASE (11/09/18) ASSAY OF NATRIURETIC PEPTIDE (12/06/18) ASSAY OF SERUM POTASSIUM (12/06/18) ASSAY OF TROPONIN QUANT (12/06/18) ASSAY THYROID STIM HORMONE (05/23/15) BLOOD CULTURE FOR BACTERIA (12/06/18) BLOOD GASES ANY COMBINATION (12/06/18) C-REACTIVE PROTEIN (12/22/15) CARPAL TUNNEL SURGERY (10/14/15) CHEST X-RAY 2VW FRONTAL&LATL (04/11/16) COMPLETE CBC AUTOMATED (02/22/15) COMPLETE CBC W/AUTO DIFF WBC (12/15/18) COMPREHEN METABOLIC PANEL (12/15/18) CT ABD & PELVIS W/O CONTRAST (11/09/18) CT HEAD/BRAIN W/O DYE (04/28/15) CT LOWER EXTREMITY W/O DYE (09/27/14) CT SOFT TISSUE NECK W/DYE (04/28/15) CT THORAX W/O DYE (10/13/17) DRAIN/INJ JOINT/BURSA W/O US (11/09/15) ECHO EXAM OF ABDOMEN (08/20/14) ELECTROCARDIOGRAM TRACING (12/06/18) EMERGENCY DEPT VISIT (06/15/19) EMERGENCY DEPT VISIT (12/06/18) EMERGENCY DEPT VISIT (08/22/18) EMERGENCY DEPT VISIT (10/13/17) EMERGENCY DEPT VISIT (05/20/17) EMERGENCY DEPT VISIT (05/23/16) EMERGENCY DEPT VISIT (01/23/16) EMERGENCY DEPT VISIT (12/26/15) EMERGENCY DEPT VISIT (04/28/15) EMERGENCY DEPT VISIT (09/22/14) EXTREMITY STUDY (06/15/19) EXTREMITY STUDY (05/20/17) HEPATIC FUNCTION PANEL (08/17/14) HEPATITIS C REVRS TRNSCRPJ (09/07/14) HYDRATE IV INFUSION ADD-ON (12/06/18) INFLUENZA ASSAY W/OPTIC (12/06/18) INJ TENDON SHEATH/LIGAMENT (05/26/15) LIPID PANEL (04/11/16) LOWER EXTREMITY STUDY (05/20/17) METABOLIC PANEL TOTAL CA (12/06/18) MRI LUMBAR SPINE W/O DYE (09/21/15) OFFICE/OUTPATIENT VISIT EST (12/15/18) OFFICE/OUTPATIENT VISIT EST (12/12/15) OFFICE/OUTPATIENT VISIT EST (11/09/15) OFFICE/OUTPATIENT VISIT EST (10/25/15) OFFICE/OUTPATIENT VISIT EST (10/11/15) OFFICE/OUTPATIENT VISIT EST (10/11/15) OFFICE/OUTPATIENT VISIT EST (09/15/15) OFFICE/OUTPATIENT VISIT EST (07/08/14) OFFICE/OUTPATIENT VISIT NEW (04/12/16) OFFICE/OUTPATIENT VISIT NEW (03/02/15) PROTHROMBIN TIME (12/06/18) PT EVALUATION (01/20/16) RBC SED RATE AUTOMATED (05/23/15) ROUTINE VENIPUNCTURE (12/15/18) THER/PROPH/DIAG INJ IV PUSH (11/09/18) THER/PROPH/DIAG INJ SC/IM (12/06/18) THER/PROPH/DIAG IV INF INIT (12/06/18) THROMBOPLASTIN TIME PARTIAL (04/11/16) TX/PRO/DX INJ NEW DRUG ADDON (12/06/18) TX/PRO/DX INJ SAME DRUG 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 (12/06/18) UPR/L XTREMITY ART 2 LEVELS (12/28/15) URINALYSIS AUTO W/O SCOPE (11/09/18) URINALYSIS AUTO W/SCOPE (12/06/18) URINE CULTURE/COLONY COUNT (10/13/17) US EXAM ABDO BACK WALL DE OL[place]IRA (12/06/18) WITHDRAWAL OF ARTERIAL BLOOD (12/06/18) X-RAY EXAM CHEST 1 VIEW (12/06/18) X-RAY EXAM CHEST 2 VIEWS (12/06/18) X-RAY EXAM HIP UNI 2-3 VIEWS (05/20/17) X-RAY EXAM L-S SPINE 2/3 VWS (12/22/15) X-RAY EXAM OF ANKLE (09/10/14) X-RAY EXAM OF FOOT (08/22/18) X-RAY EXAM OF FOOT (12/30/14) X-RAY EXAM OF FOOT (11/18/14) X-RAY EXAM OF HAND (08/16/14) X-RAY EXAM OF HEEL (11/18/14) X-RAY EXAM OF HIP (12/24/14) X-RAY EXAM OF LOWER LEG (08/22/18) X-RAY EXAM OF PELVIS (08/16/14) X-RAY EXAM OF SHOULDER (10/21/14) X-RAY EXAM UNILAT RIBS/CHEST (08/16/14) Problem List Initiated/Reviewed/Updated: Yes Plan: Assessment: 1. Abdominal pain, nausea and vomiting. 2. Right inguinal hernia. 3. Left ventral hernia. 4. Small umbilical hernia. Plan: 1. For abdominal pain, stool cultures and H pylori studies currently pending. CT scans and labwork reviewed. Right inguinal hernia is reducible and non- tender to palpation with no signs of incarceration currently. Patient also has small left ventral hernia and small umbilical hernia. No evidence for bowel hernia per CT. These hernias are unlikely to be cause of patient's abdominal pain. Patient can be referred for hernia repair as outpatient. Will sign off for now but are available to reevaluate patient if necessary. <Rakel Tee - Last Filed: 10/21/19 15:45> H&P History of Present Illness - General Admit Problem/Dx: Admission Diagnosis/Problem Admission Diagnosis/Problem Abdominal pain Exam - Vital Signs Vital Signs: Last Vital Signs Temp 36.9 C 10/21/19 11:00 Pulse 95 10/21/19 11:00 Resp 16 10/21/19 11:00 BP 120/65 10/21/19 11:00 Pulse Ox 92 L 10/21/19 11:00 - Patient Data Lab Results Last 24 hrs: Laboratory Results - last 24 hr 10/20/19 10/20/19 10/20/19 Range/Units 20:05 20:05 20:05 WBC 18.65 H (4.0-11.0) K/uL RBC 5.57 (4.50-5.90) M/uL Hgb 17.6 H (13.0-17.0) g/dL Hct 52.5 H (38.0-50.0) % MCV 94.3 (80.0-98.0) fL MCH 31.6 (27.0-32.0) pg MCHC 33.5 (31.0-37.0) g/dL RDW Std Deviation 48.8 (28.0-62.0) fl RDW Coeff of [place] 14 (11.0-15.0) % Plt Count 195 (150-400) K/uL MPV 10.50 (7.40-12.00) fL Neut % (Auto) 83.1 H (48.0-80.0) % Lymph % (Auto) 8.0 L (16.0-40.0) % [place] % (Auto) 7.8 (0.0-15.0) % Eos % (Auto) 0.9 (0.0-7.0) % Baso % (Auto) 0.2 (0.0-1.5) % Neut # (Auto) 15.5 H (1.4-5.7) K/uL Lymph # (Auto) 1.5 (0.6-2.4) K/uL [place] # (Auto) 1.5 H (0.0-0.8) K/uL Eos # (Auto) 0.2 (0.0-0.7) K/uL Baso # (Auto) 0.0 (0.0-0.1) K/uL Add Manual Diff Neutrophils % (Manual) (48.0-80.0) % Band Neutrophils % % Lymphocytes % (Manual) (16.0-40.0) % Monocytes % (Manual) (0.0-15.0) % Basophils % (Manual) (0.0-1.5) % Nucleated RBC % 0.0 /100WBC Absolute Seg Neuts (1.4-5.7) Band Neutrophils # Lymphocytes # (Manual) (0.6-2.4) Monocytes # (Manual) (0.0-0.8) Basophils # (Manual) (0.0-0.1) Nucleated RBCs # 0 K/uL Lactate (0.20-2.00) mmol/L Sodium 141 (136-148) mmol/L Potassium 5.0 (3.5-5.1) mmol/L Chloride 105 (98-107) mmol/L Carbon Dioxide 28.1 (21.0-32.0) mmol/L BUN 21 H (7.0-18.0) mg/dL Creatinine 1.1 (0.8-1.3) mg/dL Est Cr Clr Drug Dosing 65.57 mL/min Estimated GFR (MDRD) > 60.0 ml/min Glucose 120 H (74-106) mg/dL Calcium 9.0 (8.5-10.1) mg/dL Phosphorus (2.6-4.7) mg/dL Magnesium (1.8-2.4) mg/dL Total Bilirubin 0.4 (0.2-1.0) mg/dL AST 22 (15-37) IU/L ALT 21 (14-63) IU/L Alkaline Phosphatase 121 H (46-116) U/L Total Protein 7.8 (6.4-8.2) g/dL Albumin 3.6 (3.4-5.0) g/dL Globulin 4.2 H (2.6-4.0) g/dL Albumin/Globulin Ratio 0.9 (0.9-1.6) Lipase 163 (73-393) U/L Urine Color Urine Appearance Urine pH (5.0-8.0) Ur Specific [place] (1.001-1.035) Urine Protein (NEGATIVE) mg/dL Urine Glucose (UA) (NEGATIVE) mg/dL Urine Ketones (NEGATIVE) mg/dL Urine Occult Blood (NEGATIVE) Urine Nitrite (NEGATIVE) Urine Bilirubin (NEGATIVE) Urine Urobilinogen (<2.0) EU/dL Ur Leukocyte Esterase (NEGATIVE) Urine RBC (0-2/HPF) Urine WBC (0-5/HPF) Ur Epithelial Cells (NONE-FEW) Amorphous Sediment (NEGATIVE) Urine Bacteria (NEGATIVE) Urine Mucus (NONE-MOD) 10/20/19 10/20/19 10/21/19 Range/Units 20:20 21:50 05:40 WBC 16.78 H (4.0-11.0) K/uL RBC 5.33 (4.50-5.90) M/uL Hgb 16.5 (13.0-17.0) g/dL Hct 50.3 H (38.0-50.0) % MCV 94.4 (80.0-98.0) fL MCH 31.0 (27.0-32.0) pg MCHC 32.8 (31.0-37.0) g/dL RDW Std Deviation 49.4 (28.0-62.0) fl RDW Coeff of [place] 14 (11.0-15.0) % Plt Count 204 (150-400) K/uL MPV 10.70 (7.40-12.00) fL Neut % (Auto) (48.0-80.0) % Lymph % (Auto) (16.0-40.0) % [place] % (Auto) (0.0-15.0) % Eos % (Auto) (0.0-7.0) % Baso % (Auto) (0.0-1.5) % Neut # (Auto) (1.4-5.7) K/uL Lymph # (Auto) (0.6-2.4) K/uL [place] # (Auto) (0.0-0.8) K/uL Eos # (Auto) (0.0-0.7) K/uL Baso # (Auto) (0.0-0.1) K/uL Add Manual Diff YES Neutrophils % (Manual) 53 (48.0-80.0) % Band Neutrophils % 20 % Lymphocytes % (Manual) 10 L (16.0-40.0) % Monocytes % (Manual) 16 H (0.0-15.0) % Basophils % (Manual) 1 (0.0-1.5) % Nucleated RBC % 0.0 /100WBC Absolute Seg Neuts 8.9 H (1.4-5.7) Band Neutrophils # 3.4 Lymphocytes # (Manual) 1.7 (0.6-2.4) Monocytes # (Manual) 2.7 H (0.0-0.8) Basophils # (Manual) 0.2 H (0.0-0.1) Nucleated RBCs # 0 K/uL Lactate 1.3 (0.20-2.00) mmol/L Sodium (136-148) mmol/L Potassium (3.5-5.1) mmol/L Chloride (98-107) mmol/L Carbon Dioxide (21.0-32.0) mmol/L BUN (7.0-18.0) mg/dL Creatinine (0.8-1.3) mg/dL Est Cr Clr Drug Dosing mL/min Estimated GFR (MDRD) ml/min Glucose (74-106) mg/dL Calcium (8.5-10.1) mg/dL Phosphorus (2.6-4.7) mg/dL Magnesium (1.8-2.4) mg/dL Total Bilirubin (0.2-1.0) mg/dL AST (15-37) IU/L ALT (14-63) IU/L Alkaline Phosphatase (46-116) U/L Total Protein (6.4-8.2) g/dL Albumin (3.4-5.0) g/dL Globulin (2.6-4.0) g/dL Albumin/Globulin Ratio (0.9-1.6) Lipase (73-393) U/L Urine Color YELLOW Urine Appearance CLEAR Urine pH 5.5 (5.0-8.0) Ur Specific [place] >= 1.030 (1.001-1.035) Urine Protein TRACE H (NEGATIVE) mg/dL Urine Glucose (UA) NEGATIVE (NEGATIVE) mg/dL Urine Ketones TRACE H (NEGATIVE) mg/dL Urine Occult Blood NEGATIVE (NEGATIVE) Urine Nitrite NEGATIVE (NEGATIVE) Urine Bilirubin NEGATIVE (NEGATIVE) Urine Urobilinogen 0.2 (<2.0) EU/dL Ur Leukocyte Esterase NEGATIVE (NEGATIVE) Urine RBC 0-2 (0-2/HPF) Urine WBC 2-4 (0-5/HPF) Ur Epithelial Cells OCCASIONAL (NONE-FEW) Amorphous Sediment FEW (NEGATIVE) Urine Bacteria FEW (NEGATIVE) Urine Mucus FEW (NONE-MOD) 10/21/19 Range/Units 05:40 WBC (4.0-11.0) K/uL RBC (4.50-5.90) M/uL Hgb (13.0-17.0) g/dL Hct (38.0-50.0) % MCV (80.0-98.0) fL MCH (27.0-32.0) pg MCHC (31.0-37.0) g/dL RDW Std Deviation (28.0-62.0) fl RDW Coeff of [place] (11.0-15.0) % Plt Count (150-400) K/uL MPV (7.40-12.00) fL Neut % (Auto) (48.0-80.0) % Lymph % (Auto) (16.0-40.0) % [place] % (Auto) (0.0-15.0) % Eos % (Auto) (0.0-7.0) % Baso % (Auto) (0.0-1.5) % Neut # (Auto) (1.4-5.7) K/uL Lymph # (Auto) (0.6-2.4) K/uL [place] # (Auto) (0.0-0.8) K/uL Eos # (Auto) (0.0-0.7) K/uL Baso # (Auto) (0.0-0.1) K/uL Add Manual Diff Neutrophils % (Manual) (48.0-80.0) % Band Neutrophils % % Lymphocytes % (Manual) (16.0-40.0) % Monocytes % (Manual) (0.0-15.0) % Basophils % (Manual) (0.0-1.5) % Nucleated RBC % /100WBC Absolute Seg Neuts (1.4-5.7) Band Neutrophils # Lymphocytes # (Manual) (0.6-2.4) Monocytes # (Manual) (0.0-0.8) Basophils # (Manual) (0.0-0.1) Nucleated RBCs # K/uL Lactate (0.20-2.00) mmol/L Sodium 141 (136-148) mmol/L Potassium 4.6 (3.5-5.1) mmol/L Chloride 105 (98-107) mmol/L Carbon Dioxide 26.9 (21.0-32.0) mmol/L BUN 23 H (7.0-18.0) mg/dL Creatinine 1.2 (0.8-1.3) mg/dL Est Cr Clr Drug Dosing 60.11 mL/min Estimated GFR (MDRD) 59.0 ml/min Glucose 121 H (74-106) mg/dL Calcium 8.1 L (8.5-10.1) mg/dL Phosphorus 2.8 (2.6-4.7) mg/dL Magnesium 1.7 L (1.8-2.4) mg/dL Total Bilirubin (0.2-1.0) mg/dL AST (15-37) IU/L ALT (14-63) IU/L Alkaline Phosphatase (46-116) U/L Total Protein (6.4-8.2) g/dL Albumin (3.4-5.0) g/dL Globulin (2.6-4.0) g/dL Albumin/Globulin Ratio (0.9-1.6) Lipase (73-393) U/L Urine Color Urine Appearance Urine pH (5.0-8.0) Ur Specific [place] (1.001-1.035) Urine Protein (NEGATIVE) mg/dL Urine Glucose (UA) (NEGATIVE) mg/dL Urine Ketones (NEGATIVE) mg/dL Urine Occult Blood (NEGATIVE) Urine Nitrite (NEGATIVE) Urine Bilirubin (NEGATIVE) Urine Urobilinogen (<2.0) EU/dL Ur Leukocyte Esterase (NEGATIVE) Urine RBC (0-2/HPF) Urine WBC (0-5/HPF) Ur Epithelial Cells (NONE-FEW) Amorphous Sediment (NEGATIVE) Urine Bacteria (NEGATIVE) Urine Mucus (NONE-MOD) Result Diagrams: 10/21/19 05:40 10/21/19 05:40 Sepsis Event Note - Focused Exam Vital Signs: Vital Signs Temp Pulse Resp BP Pulse Ox 10/21/19 11:00 36.9 C 95 16 120/65 92 L 10/21/19 07:25 36.6 C 92 18 111/67 95 10/21/19 04:00 36.6 C 69 16 121/68 96 Date Exam was Performed: 10/21/19 Time Exam was Performed: 15:42 Consult PN Assessment/Plan Procedures: Procedures ACUTE HEPATITIS PANEL (08/20/14) AIRWAY INHALATION TREATMENT (12/06/18) APPL SURFACE NEUROSTIMULATOR (03/09/15) APPLY SHORT LEG CAST (09/28/14) ASSAY OF BLOOD/URIC ACID (12/22/15) ASSAY OF LACTIC ACID (12/06/18) ASSAY OF LIPASE (11/09/18) ASSAY OF NATRIURETIC PEPTIDE (12/06/18) ASSAY OF SERUM POTASSIUM (12/06/18) ASSAY OF TROPONIN QUANT (12/06/18) ASSAY THYROID STIM HORMONE (05/23/15) BLOOD CULTURE FOR BACTERIA (12/06/18) BLOOD GASES ANY COMBINATION (12/06/18) C-REACTIVE PROTEIN (12/22/15) CARPAL TUNNEL SURGERY (10/14/15) CHEST X-RAY 2VW FRONTAL&LATL (04/11/16) COMPLETE CBC AUTOMATED (02/22/15) COMPLETE CBC W/AUTO DIFF WBC (12/15/18) COMPREHEN METABOLIC PANEL (12/15/18) CT ABD & PELVIS W/O CONTRAST (11/09/18) CT HEAD/BRAIN W/O DYE (04/28/15) CT LOWER EXTREMITY W/O DYE (09/27/14) CT SOFT TISSUE NECK W/DYE (04/28/15) CT THORAX W/O DYE (10/13/17) DRAIN/INJ JOINT/BURSA W/O US (11/09/15) ECHO EXAM OF ABDOMEN (08/20/14) ELECTROCARDIOGRAM TRACING (12/06/18) EMERGENCY DEPT VISIT (06/15/19) EMERGENCY DEPT VISIT (12/06/18) EMERGENCY DEPT VISIT (08/22/18) EMERGENCY DEPT VISIT (10/13/17) EMERGENCY DEPT VISIT (05/20/17) EMERGENCY DEPT VISIT (05/23/16) EMERGENCY DEPT VISIT (01/23/16) EMERGENCY DEPT VISIT (12/26/15) EMERGENCY DEPT VISIT (04/28/15) EMERGENCY DEPT VISIT (09/22/14) EXTREMITY STUDY (06/15/19) EXTREMITY STUDY (05/20/17) HEPATIC FUNCTION PANEL (08/17/14) HEPATITIS C REVRS TRNSCRPJ (09/07/14) HYDRATE IV INFUSION ADD-ON (12/06/18) INFLUENZA ASSAY W/OPTIC (12/06/18) INJ TENDON SHEATH/LIGAMENT (05/26/15) LIPID PANEL (04/11/16) LOWER EXTREMITY STUDY (05/20/17) METABOLIC PANEL TOTAL CA (12/06/18) MRI LUMBAR SPINE W/O DYE (09/21/15) OFFICE/OUTPATIENT VISIT EST (12/15/18) OFFICE/OUTPATIENT VISIT EST (12/12/15) OFFICE/OUTPATIENT VISIT EST (11/09/15) OFFICE/OUTPATIENT VISIT EST (10/25/15) OFFICE/OUTPATIENT VISIT EST (10/11/15) OFFICE/OUTPATIENT VISIT EST (10/11/15) OFFICE/OUTPATIENT VISIT EST (09/15/15) OFFICE/OUTPATIENT VISIT EST (07/08/14) OFFICE/OUTPATIENT VISIT NEW (04/12/16) OFFICE/OUTPATIENT VISIT NEW (03/02/15) PROTHROMBIN TIME (12/06/18) PT EVALUATION (01/20/16) RBC SED RATE AUTOMATED (05/23/15) ROUTINE VENIPUNCTURE (12/15/18) THER/PROPH/DIAG INJ IV PUSH (11/09/18) THER/PROPH/DIAG INJ SC/IM (12/06/18) THER/PROPH/DIAG IV INF INIT (12/06/18) THROMBOPLASTIN TIME PARTIAL (04/11/16) TX/PRO/DX INJ NEW DRUG ADDON (12/06/18) TX/PRO/DX INJ SAME DRUG 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 (12/06/18) UPR/L XTREMITY ART 2 LEVELS (12/28/15) URINALYSIS AUTO W/O SCOPE (11/09/18) URINALYSIS AUTO W/SCOPE (12/06/18) URINE CULTURE/COLONY COUNT (10/13/17) US EXAM ABDO BACK WALL DE [place] (12/06/18) WITHDRAWAL OF ARTERIAL BLOOD (12/06/18) X-RAY EXAM CHEST 1 VIEW (12/06/18) X-RAY EXAM CHEST 2 VIEWS (12/06/18) X-RAY EXAM HIP UNI 2-3 VIEWS (05/20/17) X-RAY EXAM L-S SPINE 2/3 VWS (12/22/15) X-RAY EXAM OF ANKLE (09/10/14) X-RAY EXAM OF FOOT (08/22/18) X-RAY EXAM OF FOOT (12/30/14) X-RAY EXAM OF FOOT (11/18/14) X-RAY EXAM OF HAND (08/16/14) X-RAY EXAM OF HEEL (11/18/14) X-RAY EXAM OF HIP (12/24/14) X-RAY EXAM OF LOWER LEG (08/22/18) X-RAY EXAM OF PELVIS (08/16/14) X-RAY EXAM OF SHOULDER (10/21/14) X-RAY EXAM UNILAT RIBS/CHEST (08/16/14) (1) Abdominal pain SNOMED Code(s): 01340624 Code(s): R10.9 - UNSPECIFIED ABDOMINAL PAIN Current Visit: Yes Qualifiers: Abdominal location: left lower quadrant Qualified Code(s): R10.32 - Left lower quadrant pain (2) Leukocytosis SNOMED Code(s): 327939141, 769150403 Code(s): D72.829 - ELEVATED WHITE BLOOD CELL COUNT, UNSPECIFIED Current Visit: Yes Qualifiers: Leukocytosis type: bandemia Qualified Code(s): D72.825 - Bandemia Problem List Initiated/Reviewed/Updated: Yes My Orders Last 24 Hours: I examined the patient and reviewed the case with the resident. His abdominal exam is fairly benign for me. I do not believe his abdominal wall hernias are causing his abdominal pain. His abdominal pain is likely secondary to an infectious etiology. I will follow-up on the results of the stool cultures and H. pylori test. Keep on PPI at this point. Continue to treat with broad- spectrum antibiotics. Advance diet as needed. Please call with questions or concerns.
[2019-10-21] MEDS: Heparin Sodium 5,000 Units/ML Vial SUBCUT SCH ×2 (13:23→23:14)
[2019-10-21] MEDS: Gabapentin 300 MG Cap PO SCH ×2 (14:29→21:43)
[2019-10-21] MEDS: Metoprolol Succinate 25 MG Tab.ER PO SCH (21:43)
[2019-10-21] MEDS: Simvastatin 10 MG Tab PO SCH (21:44)
[2019-10-21] MEDS: Lisinopril 5 MG Tab PO SCH (21:44)
[2019-10-22] MEDS: Magnesium Sulfate/Water 2 GM in Premix Bag 1 BAG IV ONE ×2 (00:41→02:42)
[2019-10-22] MEDS: metroNIDAZOLE/Normal Saline 500 MG in Premix Bag 1 BAG IV SCH ×2 (00:41→08:45)
[2019-10-22] MEDS: Gabapentin 300 MG Cap PO SCH ×3 (05:47→22:24)
[2019-10-22] MEDS: Lactated Ringers 1,000 ML IV SCH ×4 (07:16→17:57)
[2019-10-22] MEDS: Pantoprazole 40 MG in Sodium Chloride 0.9% 10 ML IV SCH ×2 (09:00→20:02)
[2019-10-22 09:09] LABS: BLOOD UREA NITROGEN,BUN 15 mg/dL (7.0-18.0); CHLORIDE,CL 107 mmol/L (98-107); GLUCOSE RANDOM 132 mg/dL (74-106); POTASSIUM,K 4.2 mmol/L (3.5-5.1); SODIUM,NA 141 mmol/L (136-148)
[2019-10-22] MEDS: Lisinopril 5 MG Tab PO SCH (09:17)
[2019-10-22] MEDS: Metoprolol Succinate 25 MG Tab.ER PO SCH (09:17)
[2019-10-22] MEDS ORDERED: Lactated Ringers 500 ML IV ONE (10:42)
[2019-10-22] MEDS ORDERED: Ketorolac 15 MG/ML SDV IVPUSH ONE (10:51)
[2019-10-22] MEDS ORDERED: metroNIDAZOLE 250 MG Tab PO SCH (11:00)
[2019-10-22] MEDS: Heparin Sodium 5,000 Units/ML Vial SUBCUT SCH (11:27)
[2019-10-22] MEDS: Ciprofloxacin 500 MG Tab PO SCH ×2 (11:34→20:02)
--- NOTE | 2019-10-22 11:54 | PCM.PN ---
- General Info Date of Service: 10/22/19 Admission Dx/Problem (Free Text): Admission Diagnosis/Problem Admission Diagnosis/Problem Abdominal pain Subjective Update: Reports abdominal pain still with movement. worse with movement, cramping. No diarrhea. No chest pain or SOB. Functional Status: Reports: Tolerating Diet, Ambulating, Urinating - Review of Systems Pulmonary: Reports: No Symptoms. Denies: Shortness of Breath Cardiovascular: Reports: No Symptoms. Denies: Chest Pain Gastrointestinal: Reports: No Symptoms. Denies: Abdominal Pain, Nausea, Vomiting Genitourinary: Reports: No Symptoms Musculoskeletal: Reports: No Symptoms Neurological: Reports: No Symptoms Psychiatric: Reports: No Symptoms - Patient Data Vitals - Most Recent: Last Vital Signs Temp 97.8 F 10/22/19 07:00 Pulse 75 10/22/19 07:00 Resp 16 10/22/19 07:00 BP 92/55 L 10/22/19 09:17 Pulse Ox 92 L 10/22/19 07:00 Weight - Most Recent: 110.223 kg I&O - Last 24 Hours: Intake & Output 10/21/19 10/22/19 10/22/19 22:59 06:59 14:59 Intake Total 1088 1920 Output Total 820 850 Balance 268 1070 Lab Results Last 24 Hours: Laboratory Results - last 24 hr 10/22/19 10/22/19 Range/Units 08:18 08:18 WBC 11.56 H (4.0-11.0) K/uL RBC 5.15 (4.50-5.90) M/uL Hgb 15.8 (13.0-17.0) g/dL Hct 48.6 (38.0-50.0) % MCV 94.4 (80.0-98.0) fL MCH 30.7 (27.0-32.0) pg MCHC 32.5 (31.0-37.0) g/dL RDW Std Deviation 49.7 (28.0-62.0) fl RDW Coeff of [place] 14 (11.0-15.0) % Plt Count 171 (150-400) K/uL MPV 10.60 (7.40-12.00) fL Neut % (Auto) 73.8 (48.0-80.0) % Lymph % (Auto) 13.6 L (16.0-40.0) % [place] % (Auto) 9.9 (0.0-15.0) % Eos % (Auto) 2.5 (0.0-7.0) % Baso % (Auto) 0.2 (0.0-1.5) % Neut # (Auto) 8.5 H (1.4-5.7) K/uL Lymph # (Auto) 1.6 (0.6-2.4) K/uL [place] # (Auto) 1.1 H (0.0-0.8) K/uL Eos # (Auto) 0.3 (0.0-0.7) K/uL Baso # (Auto) 0.0 (0.0-0.1) K/uL Nucleated RBC % 0.0 /100WBC Nucleated RBCs # 0 K/uL Sodium 141 (136-148) mmol/L Potassium 4.2 (3.5-5.1) mmol/L Chloride 107 (98-107) mmol/L Carbon Dioxide 26.0 (21.0-32.0) mmol/L BUN 15 (7.0-18.0) mg/dL Creatinine 1.1 (0.8-1.3) mg/dL Est Cr Clr Drug Dosing 65.57 mL/min Estimated GFR (MDRD) > 60.0 ml/min Glucose 132 H (74-106) mg/dL Calcium 8.2 L (8.5-10.1) mg/dL Phosphorus 3.1 (2.6-4.7) mg/dL Magnesium 2.1 (1.8-2.4) mg/dL Zaheer Results Last 24 Hours: Microbiology 10/21/19 08:42 Helicobacter pylori Antigen - Final Stool / Feces 10/20/19 22:06 Aerobic Blood Culture - Preliminary Blood - Venous - Lab Draw NO GROWTH AFTER 1 DAY Anaerobic Blood Culture - Preliminary NO GROWTH AFTER 1 DAY 10/20/19 21:50 Aerobic Blood Culture - Preliminary Blood - Venous NO GROWTH AFTER 1 DAY Anaerobic Blood Culture - Preliminary NO GROWTH AFTER 1 DAY Med Orders - Current: Current Medications Ciprofloxacin (Ciprofloxacin Hcl) 500 mg PO BID [facility] Last Admin: 10/22/19 11:34 Dose: 500 mg Gabapentin (Neurontin) 300 mg PO TID [facility] Last Admin: 10/22/19 05:47 Dose: 300 mg Heparin Sodium (Porcine) (Heparin Sodium) 5,000 units SUBCUT Q12H [facility] Last Admin: 10/22/19 11:27 Dose: 5,000 units Lactated Ringer's (Ringers, Lactated) 1,000 mls @ 125 mls/hr IV Q8H [facility] Last Admin: 10/22/19 07:16 Dose: 125 mls/hr Pantoprazole Sodium 40 mg/ (Sodium Chloride) 10 mls @ 300 mls/hr IV BID [facility] Last Admin: 10/22/19 09:00 Dose: 300 mls/hr Lisinopril (Prinivil) 5 mg PO DAILY [facility] Metoprolol Succinate (Toprol Xl) 25 mg PO DAILY [facility] Metronidazole (Metronidazole) 500 mg PO Q8H [facility] Ondansetron HCl (Zofran) 4 mg IVPUSH Q4H PRN PRN Reason: Nausea Last Admin: 10/21/19 19:03 Dose: 4 mg Prochlorperazine Edisylate (Compazine) 5 mg IVPUSH Q6H PRN PRN Reason: Nausea/Vomiting Last Admin: 10/21/19 09:21 Dose: 5 mg Simvastatin (Zocor) 10 mg PO BEDTIME [facility] Last Admin: 10/21/19 21:44 Dose: 10 mg Sodium Chloride (Saline Flush) 10 ml FLUSH ASDIRECTED PRN PRN Reason: Keep Vein Open Sodium Chloride (Saline Flush) 2.5 ml FLUSH ASDIRECTED PRN PRN Reason: Keep Vein Open Discontinued Medications Diphenhydramine HCl (Benadryl) 25 mg IVPUSH ONETIME ONE Stop: 10/20/19 22:39 Last Admin: 10/20/19 22:48 Dose: 25 mg Ciprofloxacin/Dextrose 400 mg/ (Premix) 200 mls @ 200 mls/hr IV NOW STA Stop: 10/20/19 23:35 Last Admin: 10/20/19 22:47 Dose: 200 mls/hr Metronidazole 500 mg/ Premix 100 mls @ 100 mls/hr IV ONETIME ONE Stop: 10/20/19 23:35 Last Admin: 10/21/19 00:05 Dose: 100 mls/hr Sodium Chloride (Normal Saline) 1,000 mls @ 125 mls/hr IV STAT ONE Stop: 10/21/19 06:35 Last Admin: 10/20/19 22:46 Dose: 125 mls/hr Ciprofloxacin/Dextrose 400 mg/ (Premix) 200 mls @ 200 mls/hr IV Q12H [facility] Last Admin: 10/21/19 23:14 Dose: 200 mls/hr Lactated Ringer's (Ringers, Lactated) 1,000 mls @ 125 mls/hr IV ASDIRECTED [facility] Metronidazole 500 mg/ Premix 100 mls @ 100 mls/hr IV Q8H [facility] Last Admin: 10/22/19 08:45 Dose: 100 mls/hr Pantoprazole Sodium 40 mg/ (Sodium Chloride) 10 mls @ 300 mls/hr IV DAILY [facility] Magnesium Sulfate 2 gm/ Premix 50 mls @ 50 mls/hr IV ONETIME ONE Stop: 10/21/19 23:54 Last Admin: 10/22/19 02:42 Dose: 50 mls/hr Lactated Ringer's (Ringers, Lactated) 500 mls @ 999 mls/hr IV .BOLUS ONE Stop: 10/22/19 11:12 Last Admin: 10/22/19 11:36 Dose: 999 mls/hr Iopamidol (Isovue Multipack-370 (76%)) 100 ml IVPUSH ONETIME ONE Stop: 10/20/19 21:17 Last Admin: 10/20/19 21:17 Dose: 100 ml Ketorolac Tromethamine (Toradol) 15 mg IVPUSH NOW ONE Stop: 10/22/19 10:52 Last Admin: 10/22/19 11:31 Dose: 15 mg Lisinopril (Prinivil) 5 mg PO BID [facility] Last Admin: 10/22/19 09:17 Dose: Not Given Metoprolol Succinate (Toprol Xl) 25 mg PO BID [facility] Last Admin: 10/22/19 09:17 Dose: Not Given Metronidazole (Metronidazole) 500 mg PO Q8H [facility] Morphine Sulfate (Morphine) 2 mg IVPUSH Q4H PRN PRN Reason: Pain Last Admin: 10/21/19 19:04 Dose: 2 mg Ondansetron HCl (Zofran) 4 mg IVPUSH ONETIME ONE Stop: 10/20/19 20:44 Last Admin: 10/20/19 20:51 Dose: 4 mg - Exam General: Alert, Oriented, Cooperative Lungs: Clear to Auscultation, Normal Respiratory Effort Cardiovascular: Regular Rate, Regular Rhythm GI/Abdominal Exam: Normal Bowel Sounds, Soft, Tender (scant tenderness throughout) Extremities: Normal Inspection, Normal Range of Motion, Non-Tender, No Pedal Edema Wound/Incisions: Healing Well Neurological: No New Focal Deficit Psy/Mental Status: Alert, Normal Affect, Normal Mood Sepsis Event Note - Evaluation Sepsis Screening Result: No Definite Risk - Focused Exam Vital Signs: Vital Signs Temp Pulse Resp BP BP Pulse Ox 10/22/19 09:17 92/55 L 10/22/19 07:00 97.8 F 75 16 108/58 L 92 L 10/22/19 03:50 97/52 L 10/22/19 03:48 99/56 L 10/22/19 03:45 98.6 F 85 20 94/51 L 92 L Date Exam was Performed: 10/22/19 Time Exam was Performed: 11:57 - Problem List & Annotations (1) Abdominal pain SNOMED Code(s): 41015408 Code(s): R10.9 - UNSPECIFIED ABDOMINAL PAIN Status: Acute Current Visit: Yes Qualifiers: Abdominal location: left lower quadrant Qualified Code(s): R10.32 - Left lower quadrant pain (2) Leukocytosis SNOMED Code(s): 514547161, 914725523 Code(s): D72.829 - ELEVATED WHITE BLOOD CELL COUNT, UNSPECIFIED Status: Acute Current Visit: Yes Qualifiers: Leukocytosis type: bandemia Qualified Code(s): D72.825 - Bandemia (3) COPD (chronic obstructive pulmonary disease) SNOMED Code(s): 67350579 Code(s): J44.9 - CHRONIC OBSTRUCTIVE PULMONARY DISEASE, UNSPECIFIED Status : Chronic Current Visit: Yes Qualifiers: COPD type: unspecified COPD Qualified Code(s): J44.9 - Chronic obstructive pulmonary disease, unspecified (4) PAD (peripheral artery disease) SNOMED Code(s): 636860749 Code(s): I73.9 - PERIPHERAL VASCULAR DISEASE, UNSPECIFIED Status: Chronic Current Visit: Yes (5) CAD (coronary artery disease) SNOMED Code(s): 38743846 Code(s): I25.10 - ATHSCL HEART DISEASE OF [place] CORONARY ARTERY W/O ANG PCTRS Status: Chronic Current Visit: Yes Qualifiers: Coronary Disease-Associated Artery/Lesion type: [place] artery [place] vs. transplanted heart: [place] heart Associated angina: without angina Qualified Code(s): I25.10 - Atherosclerotic heart disease of [place] coronary artery without angina pectoris (6) HTN (hypertension) SNOMED Code(s): 76185324 Code(s): I10 - ESSENTIAL (PRIMARY) HYPERTENSION Status: Chronic Current Visit: Yes Qualifiers: Hypertension type: essential hypertension Qualified Code(s): I10 - Essential (primary) hypertension (7) Hx of CABG SNOMED Code(s): 867401114, 389288192 Code(s): Z95.1 - PRESENCE OF AORTOCORONARY BYPASS GRAFT Status: Chronic Current Visit: Yes (8) Substance abuse SNOMED Code(s): 11799748 Code(s): F19.10 - OTHER PSYCHOACTIVE SUBSTANCE ABUSE, UNCOMPLICATED Status : Chronic Current Visit: Yes (9) History of tobacco use SNOMED Code(s): 014365631 Code(s): Z87.891 - PERSONAL HISTORY OF NICOTINE DEPENDENCE Status: Chronic Current Visit: Yes (10) Chronic back pain SNOMED Code(s): 158316234 Code(s): M54.9 - DORSALGIA, UNSPECIFIED; G89.29 - OTHER CHRONIC PAIN Status : Acute Current Visit: No - Problem List Review Problem List Initiated/Reviewed/Updated: Yes - My Orders Last 24 Hours: My Active Orders 10/21/19 11:11 Communication Order [RC] ROUTINE 10/21/19 11:45 Heparin Sodium 5,000 units SUBCUT Q12H 10/21/19 14:00 Gabapentin [Neurontin] 300 mg PO TID 10/21/19 21:00 Simvastatin [Zocor] 10 mg PO BEDTIME 10/22/19 10:49 Consult to Physical Therapy [PT Evaluation and Treatment] [CONS] Routine 10/22/19 11:00 Ciprofloxacin [Ciprofloxacin HCl] 500 mg PO BID 10/22/19 19:00 metroNIDAZOLE 500 mg PO Q8H 10/22/19 Lunch Soft Diet [DIET] 10/23/19 09:00 Metoprolol Succinate [Toprol XL] 25 mg PO DAILY lisinopriL [Prinivil] 5 mg PO DAILY - Plan Plan:: This 74 year old male admitted with abdominal pain, N/V, diarrhea and leukocytosis 1. Abdominal pain, likely gastroenteritis - Consult Dr Tee, recommends treating as infectious. No surgical need. - Stool studies pending, send for H pylori, cultures. - Continue Ciprofloxacin and Flagyl change to PO today and monitor tolerance. - Soft diet today - Zofran and Compazine IV PRN nausea. Discontinued Morphine - [place] records reveal enlarged prostate, refer to Urology as outpatient. 2. CAD: Stable - Continue Home medications, Lisinopril, Metoprolol, ASA and Statin. Will adjust and make Metoprolol and Lisinopril daily due to lower blood pressures overnight. No chest pain. - Counseled regarding substance abuse and harmful effects, no current comment in regards to sobriety. 3. Chronic back pain: - Continue Gabapentin. - Consult PT today. Plan for discharge in am. VTE prophylaxis: Heparin Dispo: 1 day CODE status: FULL CODE
[2019-10-22] MEDS: metroNIDAZOLE 250 MG Tab PO SCH (18:53)
[2019-10-22] MEDS: Ketorolac 15 MG/ML SDV IVPUSH PRN (18:53)
[2019-10-22] MEDS: Simvastatin 10 MG Tab PO SCH (20:02)
[2019-10-23] MEDS: Heparin Sodium 5,000 Units/ML Vial SUBCUT SCH ×2 (00:16→11:31)
[2019-10-23] MEDS: Ketorolac 15 MG/ML SDV IVPUSH PRN ×2 (01:47→09:37)
[2019-10-23] MEDS: metroNIDAZOLE 250 MG Tab PO SCH ×2 (03:52→11:29)
[2019-10-23] MEDS: Lactated Ringers 1,000 ML IV SCH (03:53)
[2019-10-23 06:00] LABS: BLOOD UREA NITROGEN,BUN 14 mg/dL (7.0-18.0); CHLORIDE,CL 106 mmol/L (98-107); GLUCOSE RANDOM 103 mg/dL (74-106); POTASSIUM,K 4.5 mmol/L (3.5-5.1); SODIUM,NA 139 mmol/L (136-148)
[2019-10-23] MEDS: Gabapentin 300 MG Cap PO SCH (06:33)
[2019-10-23 08:40] VITALS: PULSE 71
[2019-10-23] MEDS ORDERED: Lisinopril 5 MG Tab PO SCH (09:00)
[2019-10-23] MEDS ORDERED: Metoprolol Succinate 25 MG Tab.ER PO SCH (09:00)
[2019-10-23] MEDS: Pantoprazole 40 MG in Sodium Chloride 0.9% 10 ML IV SCH (09:36)
[2019-10-23] MEDS: Ciprofloxacin 500 MG Tab PO SCH (09:49)
[2019-10-23] MEDS ORDERED: Lidocaine 5% 700 MG Patch TOP ONE (12:34)
[2019-10-23 12:48] VITALS: BP 122/72
--- NOTE | 2019-10-23 12:49 | PCM.DCSUM1 ---
Discharge Summary - Hospital Course Brief History: This 74 year old male with pmh of COPD, PAD,CAD with CABG x 3, lumbar decompression laminectomy presented to the ED last night with complaints of abdominal pain and N/V x 1-2 days. He reports he was in [place] a couple weeks to 1 month ago with similar concerns, he reports they said he had gastroenteritis. Family member reports he was vomiting up fecal matter at that time as well. He denies recent antibiotic use or eating out or eating any questionable food recently. he denies any sick contacts. He reports diarrhea which is mucous at times. Emesis at home has been food contents and now to green bile. He denies coffee ground emesis or marquise blood in emesis. He also denies black or bloody stools. Describes the abdominal pain as sharp and crampy at times to LLQ and L midline abdomen. Denies fevers, chills or chest pain. No shortness of breath or urinary concerns. He reports he smokes marijuana a couple times a day as well as uses methamphetamines a couple times a day as well , last time using both was 2 days ago. He denies alcohol use and no tobacco. In the ED significant leukocytosis noted at 18,650, hgb 17.6 hct 50.5. Na 141, K + 5.0 BUN 21, Cr 1.1, Mg 1.[address] revealed small L ventral hernia with mild stranding. He was given IVFs and Ciprofloxacin and Flagyl. Admitted for abdominal pain and leukocytosis. Diagnosis: Stroke: No Modified [place] Scale: No Symptoms at All Modified [place] Scale Score: 0 - Discharge Data Discharge Date: 10/23/19 Discharge Disposition: Home, Self-Care 01 Condition: Good - Referral to Home Health Primary Care Physician: PCP Not In Area - Discharge Diagnosis/Problem(s) (1) Abdominal pain SNOMED Code(s): 22826309 ICD Code: R10.9 - UNSPECIFIED ABDOMINAL PAIN Status: Acute Qualifiers: Abdominal location: left lower quadrant Qualified Code(s): R10.32 - Left lower quadrant pain (2) Leukocytosis SNOMED Code(s): 654471808, 518282907 ICD Code: D72.829 - ELEVATED WHITE BLOOD CELL COUNT, UNSPECIFIED Status: Acute Qualifiers: Leukocytosis type: bandemia Qualified Code(s): D72.825 - Bandemia (3) COPD (chronic obstructive pulmonary disease) SNOMED Code(s): 50103534 ICD Code: J44.9 - CHRONIC OBSTRUCTIVE PULMONARY DISEASE, UNSPECIFIED Status : Chronic Qualifiers: COPD type: unspecified COPD Qualified Code(s): J44.9 - Chronic obstructive pulmonary disease, unspecified (4) PAD (peripheral artery disease) SNOMED Code(s): 535469783 ICD Code: I73.9 - PERIPHERAL VASCULAR DISEASE, UNSPECIFIED Status: Chronic (5) CAD (coronary artery disease) SNOMED Code(s): 69970442 ICD Code: I25.10 - ATHSCL HEART DISEASE OF [place]AT[place] CORONARY ARTERY W/O ANG PCTRS Status: Chronic Qualifiers: Coronary Disease-Associated Artery/Lesion type: [place] artery [place] vs. transplanted heart: iroquois heart Associated angina: without angina Qualified Code(s): I25.10 - Atherosclerotic heart disease of [place] coronary artery without angina pectoris (6) HTN (hypertension) SNOMED Code(s): 30415707 ICD Code: I10 - ESSENTIAL (PRIMARY) HYPERTENSION Status: Chronic Qualifiers: Hypertension type: essential hypertension Qualified Code(s): I10 - Essential (primary) hypertension (7) Hx of CABG SNOMED Code(s): 427604579, 793112527 ICD Code: Z95.1 - PRESENCE OF AORTOCORONARY BYPASS GRAFT Status: Chronic (8) Substance abuse SNOMED Code(s): 36615035 ICD Code: F19.10 - OTHER PSYCHOACTIVE SUBSTANCE ABUSE, UNCOMPLICATED Status : Chronic (9) History of tobacco use SNOMED Code(s): 623685347 ICD Code: Z87.891 - PERSONAL HISTORY OF NICOTINE DEPENDENCE Status: Chronic (10) Chronic back pain SNOMED Code(s): 493988651 ICD Code: M54.9 - DORSALGIA, UNSPECIFIED; G89.29 - OTHER CHRONIC PAIN Status: Acute - Patient Summary/Data Consults: Consultations 10/21/19 09:26 Consult to Physician [CONS] Routine 10/22/19 10:49 Consult to Physical Therapy [PT Evaluation and Treatment] [CONS] Routine - Patient Instructions Diet: Heart Healthy Diet, Regular Diet as Tolerated Activity: No Strenuous Activities Driving: Do Not Drive Showering/Bathing: May Shower Notify Provider of: Fever, Increased Pain, Swelling and Redness, Drainage, Nausea and/or Vomiting - Discharge Plan *PRESCRIPTION DRUG MONITORING PROGRAM REVIEWED*: Not Applicable *COPY OF PRESCRIPTION DRUG MONITORING REPORT IN PATIENT JACY: Not Applicable Prescriptions/Med Rec: Ciprofloxacin [Ciprofloxacin HCl] 500 mg PO BID #14 tablet Lidocaine 5% [Lidoderm 5%] 700 mg TOP Q24H PRN #5 patch PRN Reason: Pain metroNIDAZOLE [Flagyl] 500 mg PO Q8H #21 tab Home Medications: Home Meds Gabapentin [Neurontin] 300 mg PO TID 10/12/17 [History] Metoprolol Succinate [Toprol XL] 25 mg PO BID 10/12/17 [History] Simvastatin [Zocor] 10 mg PO BEDTIME 08/22/18 [History] Lisinopril [Zestril] 1 tab PO BID 10/20/19 [History] Omeprazole 20 mg PO BEDTIME 10/20/19 [History] Ciprofloxacin [Ciprofloxacin HCl] 500 mg PO BID #14 tablet 10/23/19 [Rx] Lidocaine 5% [Lidoderm 5%] 700 mg TOP Q24H PRN #5 patch 10/23/19 [Rx] metroNIDAZOLE [Flagyl] 500 mg PO Q8H #21 tab 10/23/19 [Rx] Oxygen Therapy Mode: Room Air Patient Handouts: Viral Gastroenteritis, Adult, [id number], Metronidazole extended-release tablets, Lidocaine; Tetracaine dermal patches, Ciprofloxacin tablets Referrals: [facility] [Outside] Lana Ivey MD [Physician] - 11/10/19 1:45 pm Rakel Tee MD [Physician] - 10/28/19 8:00 am Marielena Cassidy PA [Physician Carton Machine Operator] - 10/28/19 10:30 am Cassia Lakhani MD [Physician] - 11/30/19 2:30 pm - Discharge Summary/Plan Comment DC Time >30 min.: No Discharge Summary/Plan Comment: Admitting Diagnoses: Gastroenteritis Abdominal pain N/V Discharge Diagnoses: Gastroenteritis Abdominal pain N/V Other PMH: HTN CAD hx CABG Substance abuse Lalit was admitted secondary to abdominal pain, N/V and diarrhea. He was treated with Ciprofloxacin and Flagyl. He did have a stool, which was formed. THis was negative for H Pylori. NO other stool studies performed as he had no further stools. He continued to have mild R flank, side pain which worsened with movement and palpation. Likely related to chronic back pain. Leukocytosis improved with hydration and antibiotics. CT was negative, general surgery consulted due to hernias noted. NO surgical intervention needed currently. He will sent home today, LIdocaine patch placed to side with relief. He will be discharged home with referrals to new PCP at [facility]. He will also see general surgery as outpatient for outpatient management of hernias as well as Urology for noted prostatomegaly from previous [place] CT scan.Referral made to Cardiology for continued management of CAD. It is unsure if he is completely compliant with home medications. I will continue Cipro and Flagyl for another 7 days. He is to return to E or clinic if concerns should arise. He was counseled to stop using recreational drugs from pain control. - Patient Data Vitals - Most Recent: Last Vital Signs Temp 97.8 F 10/23/19 12:35 Pulse 71 10/23/19 12:35 Resp 17 10/23/19 12:35 BP 122/72 10/23/19 12:35 Pulse Ox 95 10/23/19 12:35 Weight - Most Recent: 110.223 kg I&O - Last 24 hours: Intake & Output 10/22/19 10/23/19 10/23/19 22:59 06:59 14:59 Intake Total 1179 Output Total 675 Balance 504 Lab Results - Last 24 hrs: Laboratory Results - last 24 hr 10/23/19 10/23/19 Range/Units 05:25 05:25 WBC 10.40 (4.0-11.0) K/uL RBC 4.45 L (4.50-5.90) M/uL Hgb 13.5 (13.0-17.0) g/dL Hct 42.1 (38.0-50.0) % MCV 94.6 (80.0-98.0) fL MCH 30.3 (27.0-32.0) pg MCHC 32.1 (31.0-37.0) g/dL RDW Std Deviation 48.4 (28.0-62.0) fl RDW Coeff of [place] 14 (11.0-15.0) % Plt Count 169 (150-400) K/uL MPV 10.40 (7.40-12.00) fL Neut % (Auto) 69.4 (48.0-80.0) % Lymph % (Auto) 14.8 L (16.0-40.0) % [place] % (Auto) 12.5 (0.0-15.0) % Eos % (Auto) 3.0 (0.0-7.0) % Baso % (Auto) 0.3 (0.0-1.5) % Neut # (Auto) 7.2 H (1.4-5.7) K/uL Lymph # (Auto) 1.5 (0.6-2.4) K/uL [place] # (Auto) 1.3 H (0.0-0.8) K/uL Eos # (Auto) 0.3 (0.0-0.7) K/uL Baso # (Auto) 0.0 (0.0-0.1) K/uL Nucleated RBC % 0.0 /100WBC Nucleated RBCs # 0 K/uL Sodium 139 (136-148) mmol/L Potassium 4.5 (3.5-5.1) mmol/L Chloride 106 (98-107) mmol/L Carbon Dioxide 29.0 (21.0-32.0) mmol/L BUN 14 (7.0-18.0) mg/dL Creatinine 1.1 (0.8-1.3) mg/dL Est Cr Clr Drug Dosing 65.57 mL/min Estimated GFR (MDRD) > 60.0 ml/min Glucose 103 (74-106) mg/dL Calcium 8.2 L (8.5-10.1) mg/dL Magnesium 2.0 (1.8-2.4) mg/dL AVA Results - Last 24 hrs: Microbiology 10/20/19 22:06 Aerobic Blood Culture - Preliminary Blood - Venous - Lab Draw NO GROWTH AFTER 2 DAYS Anaerobic Blood Culture - Preliminary NO GROWTH AFTER 2 DAYS 10/20/19 21:50 Aerobic Blood Culture - Preliminary Blood - Venous NO GROWTH AFTER 2 DAYS Anaerobic Blood Culture - Preliminary NO GROWTH AFTER 2 DAYS 10/21/19 08:42 Helicobacter pylori Antigen - Final Stool / Feces Med Orders - Current: Current Medications Ciprofloxacin (Ciprofloxacin Hcl) 500 mg PO BID [facility] Last Admin: 10/23/19 09:49 Dose: 500 mg Gabapentin (Neurontin) 300 mg PO TID [facility] Last Admin: 10/23/19 06:33 Dose: 300 mg Heparin Sodium (Porcine) (Heparin Sodium) 5,000 units SUBCUT Q12H [facility] Last Admin: 10/23/19 11:31 Dose: 5,000 units Pantoprazole Sodium 40 mg/ (Sodium Chloride) 10 mls @ 300 mls/hr IV BID [facility] Last Admin: 10/23/19 09:36 Dose: 300 mls/hr Lactated Ringer's (Ringers, Lactated) 1,000 mls @ 50 mls/hr IV Q20H [facility] Last Admin: 10/23/19 03:53 Dose: 50 mls/hr Ketorolac Tromethamine (Toradol) 15 mg IVPUSH Q6H PRN PRN Reason: Pain Stop: 10/27/19 18:04 Last Admin: 10/23/19 09:37 Dose: 15 mg Lisinopril (Prinivil) 5 mg PO DAILY [facility] Last Admin: 10/23/19 09:48 Dose: 5 mg Metoprolol Succinate (Toprol Xl) 25 mg PO DAILY [facility] Last Admin: 10/23/19 09:50 Dose: 25 mg Metronidazole (Metronidazole) 500 mg PO Q8H [facility] Last Admin: 10/23/19 11:29 Dose: 500 mg Ondansetron HCl (Zofran) 4 mg IVPUSH Q4H PRN PRN Reason: Nausea Last Admin: 10/21/19 19:03 Dose: 4 mg Prochlorperazine Edisylate (Compazine) 5 mg IVPUSH Q6H PRN PRN Reason: Nausea/Vomiting Last Admin: 10/21/19 09:21 Dose: 5 mg Simvastatin (Zocor) 10 mg PO BEDTIME [facility] Last Admin: 10/22/19 20:02 Dose: 10 mg Sodium Chloride (Saline Flush) 10 ml FLUSH ASDIRECTED PRN PRN Reason: Keep Vein Open Sodium Chloride (Saline Flush) 2.5 ml FLUSH ASDIRECTED PRN PRN Reason: Keep Vein Open Discontinued Medications Diphenhydramine HCl (Benadryl) 25 mg IVPUSH ONETIME ONE Stop: 10/20/19 22:39 Last Admin: 10/20/19 22:48 Dose: 25 mg Ciprofloxacin/Dextrose 400 mg/ (Premix) 200 mls @ 200 mls/hr IV NOW STA Stop: 10/20/19 23:35 Last Admin: 10/20/19 22:47 Dose: 200 mls/hr Metronidazole 500 mg/ Premix 100 mls @ 100 mls/hr IV ONETIME ONE Stop: 10/20/19 23:35 Last Admin: 10/21/19 00:05 Dose: 100 mls/hr Sodium Chloride (Normal Saline) 1,000 mls @ 125 mls/hr IV STAT ONE Stop: 10/21/19 06:35 Last Admin: 10/20/19 22:46 Dose: 125 mls/hr Ciprofloxacin/Dextrose 400 mg/ (Premix) 200 mls @ 200 mls/hr IV Q12H [facility] Last Admin: 10/21/19 23:14 Dose: 200 mls/hr Lactated Ringer's (Ringers, Lactated) 1,000 mls @ 125 mls/hr IV ASDIRECTED [facility] Metronidazole 500 mg/ Premix 100 mls @ 100 mls/hr IV Q8H [facility] Last Admin: 10/22/19 08:45 Dose: 100 mls/hr Pantoprazole Sodium 40 mg/ (Sodium Chloride) 10 mls @ 300 mls/hr IV DAILY [facility] Lactated Ringer's (Ringers, Lactated) 1,000 mls @ 125 mls/hr IV Q8H [facility] Last Admin: 10/22/19 17:57 Dose: Not Given Magnesium Sulfate 2 gm/ Premix 50 mls @ 50 mls/hr IV ONETIME ONE Stop: 10/21/19 23:54 Last Admin: 10/22/19 02:42 Dose: 50 mls/hr Lactated Ringer's (Ringers, Lactated) 500 mls @ 999 mls/hr IV .BOLUS ONE Stop: 10/22/19 11:12 Last Admin: 10/22/19 11:36 Dose: 999 mls/hr Iopamidol (Isovue Multipack-370 (76%)) 100 ml IVPUSH ONETIME ONE Stop: 10/20/19 21:17 Last Admin: 10/20/19 21:17 Dose: 100 ml Ketorolac Tromethamine (Toradol) 15 mg IVPUSH NOW ONE Stop: 10/22/19 10:52 Last Admin: 10/22/19 11:31 Dose: 15 mg Lidocaine (Lidoderm 5%) 700 mg TOP ONETIME ONE Stop: 10/23/19 12:35 Lisinopril (Prinivil) 5 mg PO BID [facility] Last Admin: 10/22/19 09:17 Dose: Not Given Metoprolol Succinate (Toprol Xl) 25 mg PO BID [facility] Last Admin: 10/22/19 09:17 Dose: Not Given Metronidazole (Metronidazole) 500 mg PO Q8H [facility] Last Admin: 10/22/19 12:44 Dose: Not Given Morphine Sulfate (Morphine) 2 mg IVPUSH Q4H PRN PRN Reason: Pain Last Admin: 10/21/19 19:04 Dose: 2 mg Ondansetron HCl (Zofran) 4 mg IVPUSH ONETIME ONE Stop: 10/20/19 20:44 Last Admin: 10/20/19 20:51 Dose: 4 mg
== END 2019-10-23 14:25 | disposition home or self-care (01) ==
LOC: MW.ED 19:02 → MW.MS 22:43
PROVIDERS: ADMIT Student in an Organized Health Care Education/Training Program; ATTEND Student in an Organized Health Care Education/Training Program
DX: K52.9 Noninfective gastroenteritis and colitis, unspecified (principal); D72.825 Bandemia; J44.9 Chronic obstructive pulmonary disease, unspecified; K43.9 Ventral hernia without obstruction or gangrene; K40.90 Unilateral inguinal hernia, without obstruction or gangrene, not specified as recurrent; K42.9 Umbilical hernia without obstruction or gangrene; I73.9 Peripheral vascular disease, unspecified; I25.10 Atherosclerotic heart disease of native coronary artery without angina pectoris; I10 Essential (primary) hypertension; F19.10 Other psychoactive substance abuse, uncomplicated; M54.9 Dorsalgia, unspecified; G89.29 Other chronic pain; F12.90 Cannabis use, unspecified, uncomplicated; F15.90 Other stimulant use, unspecified, uncomplicated; E78.00 Pure hypercholesterolemia, unspecified; E66.9 Obesity, unspecified; Z95.1 Presence of aortocoronary bypass graft; Z87.891 Personal history of nicotine dependence; Z79.899 Other long term (current) drug therapy; Z98.890 Other specified postprocedural states; Z90.49 Acquired absence of other specified parts of digestive tract; Z88.1 Allergy status to other antibiotic agents; Z88.0 Allergy status to penicillin; Z68.32 Body mass index [BMI] 32.0-32.9, adult
CPT/HCPCS: 36415; 74177; 80048; 80053; 81001; 83605; 83690; 83735; 84100; 85025; 87040; 87338; 93005; 96365; 96375; 97161; 99285; A9270; C9113; J0744; J0780; J1200; J1644; J1885; J2270; J2405; J3475; J3490; J7030; J7050; J7120; Q9967; 96361; 96366; 96367; 96372; 96376; 99283; G0378

== ENCOUNTER 2019-11-19 09:40 | Emergency (ER) | payer MEDICARE ==
[2019-11-19] MEDS ORDERED: Ondansetron 4 MG/2 ML SDV IVPUSH ONE (10:37)
[2019-11-19] MEDS ORDERED: HYDROmorphone 2 MG/ML Syringe IVPUSH ONE (10:37)
[2019-11-19 10:45] LABS: BLOOD UREA NITROGEN,BUN 20 mg/dL (7.0-18.0); CARBON DIOXIDE,CO2 27.4 mmol/L (21.0-32.0); CHLORIDE,CL 103 mmol/L (98-107); GLUCOSE RANDOM 111 mg/dL (74-106); LIPASE 135 U/L (73-393); POTASSIUM,K 4.2 mmol/L (3.5-5.1); SODIUM,NA 140 mmol/L (136-148)
--- NOTE | 2019-11-19 10:59 | EDM.PDOC ---
ED HPI GENERAL MEDICAL PROBLEM - General Chief Complaint: Abdominal Pain Stated Complaint: STOMACH, VOMITING Time Seen by Provider: 11/19/19 09:44 Source of Information: Reports: Patient History Limitations: Reports: No Limitations - History of Present Illness INITIAL COMMENTS - FREE TEXT/NARRATIVE: HISTORY OF PRESENT ILLNESS: Patient is a 34-year-old male with history of coronary artery bypass grafting x3 in 2017 who presents the ER with abdominal pain and nausea vomiting since this morning at 5 AM. It is 7 out of 10, waxing and waning in nature with maximal pain in the midepigastrium. patient has recently been having pleuritic chest pain and was sent for outpatient testing by his auricular acupuncturist. He is also been complained of intermittent abdominal pain for the past [address] abdomen pelvis was ordered. It was performed on November 12 and results were given to his auricular acupuncturist today. When auricular acupuncturist reviewed the CT he sent the patient immediately over to the emergency room for further evaluation. 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 Irvin. Patient states he felt warm and was sweating but denies any fever at home. Denies any rash. No new weakness, numbness. Denies any present chest pain or dyspnea. Denies any urinary symptoms. REVIEW OF SYSTEMS: Other than the symptoms associated with the present events, the following is reported with regard to recent health: General: (-) documented fever. HENT: (-) congestion. Respiratory: (-) cough. Cardiovascular: (-) chest pain. GI: (+) abdominal pain. : (-) urinary complaints. Musculoskeletal: (-) other aches or pains. Endocrine: (-) generalized weakness. Neurological: (-) localized weakness. Skin: (-) rash PAST MEDICAL HISTORY: reviewed as per nursing notes SOCIAL HISTORY: reviewed as per nursing notes, MEDICATIONS: Per nurse's note ALLERGIES: Per nurse's note, reviewed by me PHYSICAL EXAMINATION: GENERALIZED APPEARANCE: well developed, well nourished in mild distress VITAL SIGNS: Per nurse's note, reviewed by me SKIN: Warm, dry; (-) cyanosis; (-) rash. HEAD: (-) scalp swelling, (-) tenderness. EYES: (-) conjunctival pallor, (-) scleral icterus. ENMT: (-) stridor; mucous membranes moist. NECK: (-) tenderness, (-) stiffness, CHEST AND RESPIRATORY: (-) rales, (-) rhonchi, (-) wheezes; breath sounds equal bilaterally. HEART AND CARDIOVASCULAR: (-) irregularity; (-) murmur, (-) gallop. ABDOMEN AND GI: Soft; (+) tenderness diffusely, maximal in midepigastrium (-) guarding, (-) rebound, (-) palpable masses, EXTREMITIES: (-) deformity, (-) edema. NEURO AND PSYCH: Alert. Cranial nerves grossly intact; strength symmetric. gait steady DIAGNOSTICS: Labs ordered and reviewed EKG: st at 104 bpm. nml axis rsr in v1. no st elevation. EMERGENCY DEPARTMENT COURSE AND TREATMENT: Patient's condition remained stable during Emergency Department evaluation. Given Zofran and Dilaudid. Clindamycin , Flagyl and Gentamycin given after blood cultures x [address] reviewed from 11/13/19. Call placed upon arrival to Dr. Tee who states patient will require transfer, he is beyond the scope of practice for this facility. Call placed to Dr Valdez at [facility] who would like me to speak with vascular. I spoke with Dr. Tolliver who feels this is likely chronic and patient should be admitted to general surgery and he will consult if necessary. I spoke with Dr Valdez who would like me to speak with general surgeon. Attempts made to contact Dr. Estevez, but he is currently in surgery. I spoke with Dr. Valdez again and he kindly agrees to accept transfer. PLAN AND FOLLOW-UP: Transfer to [facility] abd Pain Score (Numeric/FACES): 8 - Related Data Allergies Allergy/AdvReac Type Severity Reaction Status Date / Time levofloxacin [From Levaquin] Allergy Itching Verified 10/21/19 06:13 Penicillins Allergy Cannot Verified 10/21/19 06:13 Remember Home Meds: Home Meds Gabapentin [Neurontin] 600 mg PO TID PRN 10/12/17 [History] Lisinopril [Zestril] 5 mg PO DAILY 10/20/19 [History] Omeprazole 20 mg PO BEDTIME 10/20/19 [History] Albuterol Sulfate [Albuterol Sulfate Hfa] 2 puff IH QID PRN 11/19/19 [History] Budesonide/Formoterol Fumarate [Symbicort 160-4.5 Mcg Inhaler] 2 puff IH BID 08/28 [History] Metoprolol Tartrate 25 mg PO DAILY 11/19/19 [History] Pravastatin [Pravachol] 20 mg PO DAILY 11/19/19 [History] Past Medical History HEENT History: Reports: Impaired Vision Other HEENT History: has top and bottom dentures, wears glasses Cardiovascular History: Reports: Bypass, CAD, High Cholesterol, Hypertension, [place] Respiratory History: Reports: COPD Other Respiratory History: smokes 1 pk of cigarettes per day for over 50 yrs Gastrointestinal History: Reports: Hepatitis Other Gastrointestinal History: states he is on his last treatment for hepatitis C,h/o elevated LFT'S Genitourinary History: Reports: Prostate Disorder Musculoskeletal History: Reports: Back Pain, Chronic Other Musculoskeletal History: WILLA, chronic leg pain Neurological History: Reports: None Psychiatric History: Reports: Addiction, Other (See Below) Other Psychiatric History: hx ETOH abuse Endocrine/Metabolic History: Reports: Obesity/BMI 30+ Hematologic History: Reports: None Immunologic History: Reports: None Oncologic (Cancer) History: Reports: None Dermatologic History: Reports: None - Infectious Disease History Infectious Disease History: Reports: Hepatitis C - Past Surgical History Head Surgeries/Procedures: Reports: None HEENT Surgical History: Reports: Naso-Sinus Surgery Cardiovascular Surgical History: Reports: Coronary Artery Bypass, Vascular Surgery Respiratory Surgical History: Reports: None GI Surgical History: Reports: Appendectomy Male Surgical History: Reports: TURP-Transurethral Resection of Prostate Endocrine Surgical History: Reports: None Neurological Surgical History: Reports: Laminectomy Musculoskeletal Surgical History: Reports: Other (See Below) Other Musculoskeletal Surgeries/Procedures:: left foot - 3 hammer toe repair Dermatological Surgical History: Reports: None Social & Family History - Family History Family Medical History: Noncontributory - Tobacco Use Smoking Status *Q: Former Smoker Used Tobacco, but Quit: Yes Month/Year Tobacco Last Used: 02/2019 - Caffeine Use Caffeine Use: Reports: Coffee, Soda - Recreational Drug Use Recreational Drug Use: No - Living Situation & Occupation Living situation: Reports: with Significant Other ED ROS GENERAL - Review of Systems Review Of Systems: See Below (see dictation) ED EXAM, GENERAL - Physical Exam Exam: See Below (see dictation) Course - Vital Signs Last Recorded V/S: Last Vital Signs Temp 97.3 F 11/19/19 11:26 Pulse 103 H 11/19/19 11:23 Resp 18 11/19/19 11:23 BP 131/82 11/19/19 11:23 Pulse Ox 95 11/19/19 11:23 - Orders/Labs/Meds Orders: Active Orders 24 hr Category Date Time Status EKG Documentation Completion [RC] STAT Care 11/19/19 09:53 Active EKG Documentation Completion [RC] STAT Care 11/19/19 10:07 Active CULTURE BLOOD [BC] Stat Lab 11/19/19 10:18 Received CULTURE BLOOD [BC] Stat Lab 11/19/19 10:28 Results Clindamycin Phosphate in D5W [Cleocin in D5W] 600 mg Med 11/19/19 11:15 Active Premix Bag 1 bag IV Q6H Sodium Chloride 0.9% [Normal Saline] 1,000 ml Med 11/19/19 11:15 Active IV STAT metroNIDAZOLE/Normal Saline [Flagyl 500 MG in NS 100 ML Med 11/19/19 12:00 Active ] 500 mg Premix Bag 1 bag IV QID Blood Culture x2 Reflex Set [OM.PC] Stat Oth 11/19/19 10:06 Ordered Medication Orders Clindamycin Phosphate 600 mg/ (Premix) 50 mls @ 100 mls/hr IV Q6H BERYL Last Admin: 11/19/19 11:23 Dose: 100 mls/hr Metronidazole 500 mg/ Premix 100 mls @ 100 mls/hr IV QID BERYL Sodium Chloride (Normal Saline) 1,000 mls @ 125 mls/hr IV STAT [facility] Last Admin: 11/19/19 11:23 Dose: 125 mls/hr Labs: Laboratory Tests 11/19/19 11/19/19 11/19/19 Range/Units 09:55 09:55 09:55 WBC 28.48 H (4.0-11.0) K/uL RBC 6.04 H (4.50-5.90) M/uL Hgb 18.7 H (13.0-17.0) g/dL Hct 57.0 H (38.0-50.0) % MCV 94.4 (80.0-98.0) fL MCH 31.0 (27.0-32.0) pg MCHC 32.8 (31.0-37.0) g/dL RDW Std Deviation 48.7 (28.0-62.0) fl RDW Coeff of Sheba 14 (11.0-15.0) % Plt Count 203 (150-400) K/uL MPV 10.80 (7.40-12.00) fL Add Manual Diff YES Neutrophils % (Manual) 79 (48.0-80.0) % Band Neutrophils % 5 % Lymphocytes % (Manual) 3 L (16.0-40.0) % Monocytes % (Manual) 10 (0.0-15.0) % Eosinophils % (Manual) 3 (0.0-7.0) % Nucleated RBC % 0.0 /100WBC Absolute Seg Neuts 22.5 H (1.4-5.7) Band Neutrophils # 1.4 Lymphocytes # (Manual) 0.9 (0.6-2.4) Monocytes # (Manual) 2.8 H (0.0-0.8) Eosinophils # (Manual) 0.9 H (0.0-0.7) Nucleated RBCs # 0 K/uL Lactate 1.7 (0.20-2.00) mmol/L Sodium 140 (136-148) mmol/L Potassium 4.2 (3.5-5.1) mmol/L Chloride 103 (98-107) mmol/L Carbon Dioxide 27.4 (21.0-32.0) mmol/L BUN 20 H (7.0-18.0) mg/dL Creatinine 1.4 H (0.8-1.3) mg/dL Est Cr Clr Drug Dosing 50.04 mL/min Estimated GFR (MDRD) 49.4 ml/min Glucose 111 H (74-106) mg/dL Calcium 9.8 (8.5-10.1) mg/dL Total Bilirubin 0.2 (0.2-1.0) mg/dL AST 22 (15-37) IU/L ALT 24 (14-63) IU/L Alkaline Phosphatase 138 H (46-116) U/L Troponin I < 0.050 (0.000-0.056) ng/mL Total Protein 8.2 (6.4-8.2) g/dL Albumin 3.9 (3.4-5.0) g/dL Globulin 4.3 H (2.6-4.0) g/dL Albumin/Globulin Ratio 0.9 (0.9-1.6) Lipase 135 (73-393) U/L Meds: Medications Generic Name Dose Route Start Last Admin Trade Name Freq PRN Reason Stop Dose Admin Clindamycin Phosphate 600 mg/ 50 mls @ 100 mls/hr 11/19/19 11:15 11/19/19 11: 23 Premix IV 100 mls/hr Q6H BERYL Administration Metronidazole 500 mg/ Premix 100 mls @ 100 mls/hr 11/19/19 12:00 IV QID BERYL Sodium Chloride 1,000 mls @ 125 mls/hr 11/19/19 11:15 11/19/19 11:23 Normal Saline IV 125 mls/hr STAT BERYL Administration Discontinued Medications Generic Name Dose Route Start Last Admin Trade Name Freq PRN Reason Stop Dose Admin Hydromorphone HCl 1 mg 11/19/19 10:37 11/19/19 10:59 Dilaudid IVPUSH 11/19/19 10:38 1 mg ONETIME ONE Administration Gentamicin Sulfate 80 mg/ 52 mls @ 100 mls/hr 11/19/19 11:09 Sodium Chloride IV 11/19/19 11:40 ONETIME ONE Ondansetron HCl 4 mg 11/19/19 10:37 11/19/19 10:59 Zofran IVPUSH 11/19/19 10:38 4 mg ONETIME ONE Administration Departure - Departure Time of Disposition: 11:11 Disposition: DC/Tfer to Acute Hospital 02 Condition: Fair Clinical Impression: Vomiting, Mesenteric ischemia Abdominal pain Qualifiers: Abdominal location: left lower quadrant Qualified Code(s): R10.32 - Left lower quadrant pain - Discharge Information Referrals: PCP,Not In Area [Primary Care Provider] - Forms: ED Department Discharge Sepsis Event Note - Evaluation Sepsis Screening Result: Possible Sepsis Risk - Focused Exam Vital Signs: Vital Signs Temp Pulse Resp BP Pulse Ox 11/19/19 11:26 97.3 F 11/19/19 11:23 103 H 18 131/82 95 11/19/19 10:43 96 18 119/78 94 L 11/19/19 09:45 96 F L 97 20 149/82 H 95 Date Exam was Performed: 11/19/19 Time Exam was Performed: 11:46 - My Orders Last 24 Hours: My Active Orders 11/19/19 09:53 EKG Documentation Completion [RC] STAT 11/19/19 10:06 Blood Culture x2 Reflex Set [OM.PC] Stat 11/19/19 10:07 EKG Documentation Completion [RC] STAT 11/19/19 10:18 CULTURE BLOOD [BC] Stat 11/19/19 10:28 CULTURE BLOOD [BC] Stat 11/19/19 11:15 Clindamycin Phosphate in D5W [Cleocin in D5W] 600 mg Premix Bag 1 bag IV Q6H Sodium Chloride 0.9% [Normal Saline] 1,000 ml IV STAT 11/19/19 12:00 metroNIDAZOLE/Normal Saline [Flagyl 500 MG in NS 100 ML] 500 mg Premix Bag 1 bag IV QID - Assessment/Plan Last 24 Hours: My Active Orders 11/19/19 09:53 EKG Documentation Completion [RC] STAT 11/19/19 10:06 Blood Culture x2 Reflex Set [OM.PC] Stat 11/19/19 10:07 EKG Documentation Completion [RC] STAT 11/19/19 10:18 CULTURE BLOOD [BC] Stat 11/19/19 10:28 CULTURE BLOOD [BC] Stat 11/19/19 11:15 Clindamycin Phosphate in D5W [Cleocin in D5W] 600 mg Premix Bag 1 bag IV Q6H Sodium Chloride 0.9% [Normal Saline] 1,000 ml IV STAT 11/19/19 12:00 metroNIDAZOLE/Normal Saline [Flagyl 500 MG in NS 100 ML] 500 mg Premix Bag 1 bag IV QID
[2019-11-19] MEDS ORDERED: Clindamycin Phosphate in D5W 600 MG in Premix Bag 1 BAG IV SCH ×2 (11:15)
[2019-11-19] MEDS ORDERED: Sodium Chloride 0.9% 1,000 ML IV SCH (11:15)
[2019-11-19 11:25] VITALS: BP 131/82; PULSE 103
[2019-11-19] MEDS ORDERED: metroNIDAZOLE/Normal Saline 500 MG in Premix Bag 1 BAG IV SCH (12:00)
== END 2019-11-19 12:30 ==
LOC: MW.ED 09:40
DX: K55.059 Acute (reversible) ischemia of intestine, part and extent unspecified (principal); I10 Essential (primary) hypertension; E78.00 Pure hypercholesterolemia, unspecified; I25.10 Atherosclerotic heart disease of native coronary artery without angina pectoris; I25.2 Old myocardial infarction; J44.9 Chronic obstructive pulmonary disease, unspecified; E66.9 Obesity, unspecified; Z68.32 Body mass index [BMI] 32.0-32.9, adult; Z95.1 Presence of aortocoronary bypass graft; Z87.891 Personal history of nicotine dependence; Z88.0 Allergy status to penicillin; Z88.8 Allergy status to other drugs, medicaments and biological substances; Z79.899 Other long term (current) drug therapy
CPT/HCPCS: 36415; 80053; 83605; 83690; 84484; 85025; 87040; 93005; 96365; 96367; 96375; 99285; J1170; J1580; J2405; J3490; J7030; J7050; 99283

== ENCOUNTER 2019-12-14 16:21 | Observation (INO) | payer MEDICARE ==
[2019-12-14] MEDS ORDERED: Sodium Chloride 0.9% 1,000 ML IV ONE (16:33)
[2019-12-14] MEDS ORDERED: Ondansetron 4 MG/2 ML SDV IVPUSH ONE (16:33)
[2019-12-14 18:19] LABS: BLOOD UREA NITROGEN,BUN 29 mg/dL (7.0-18.0); CARBON DIOXIDE,CO2 22.3 mmol/L (21.0-32.0); CHLORIDE,CL 106 mmol/L (98-107); GLUCOSE RANDOM 117 mg/dL (74-106); LIPASE 111 U/L (73-393); POTASSIUM,K 4.2 mmol/L (3.5-5.1); SODIUM,NA 140 mmol/L (136-148)
[2019-12-14] MEDS ORDERED: metroNIDAZOLE/Normal Saline 500 MG in Premix Bag 1 BAG IV ONE (19:10)
[2019-12-14] MEDS ORDERED: Ciprofloxacin in D5W 400 MG in Premix Bag 1 BAG IV STA ×2 (19:10)
--- NOTE | 2019-12-14 19:13 | CR ---
Indication: Emesis Technique: Chest 1 view Comparison: December 07, 2018 Findings/Impression: Cardiovascular and mediastinum: Status post median sternotomy. Heart size and vasculature are normal in caliber and appearance. Mediastinum is within normal limits. Lungs and pleural space: There are foci of opacity in the mid lungs which appear stable compared to the prior study. These areas may represent scarring or pleural calcifications. No new focal infiltrate. No sign of pleural effusion. No pneumothorax. Bones and soft tissues: No acute findings. There are old left-sided rib fractures. Dictated by Jessica Ellison MD @ Dec 14 2019 7:11PM Signed by Dr. Jessica Ellison @ Dec 14 2019 7:11PM
--- NOTE | 2019-12-14 19:18 | EDM.PDOC ---
ED [facility] GENERAL MEDICAL PROBLEM - General Chief Complaint: Gastrointestinal Problem Stated Complaint: ABDOMINAL PAIN Time Seen by Provider: 12/14/19 16:53 - History of Present Illness INITIAL COMMENTS - FREE TEXT/NARRATIVE: HPI 74-year-old male with a history of chronic N/V with infrequent diarrhea presents requesting evaluation and treatment of typical recurrent symptoms that appear to have worsened today. No fevers, chills, hemoptysis, dark tarry stools , or bright red blood per rectum. No fevers, cough, chills. Patient reports methamphetamine and marijuana usage. Patient reports multiple negative prior evaluations for his symptoms. M/S/F/SocHx notable for: please see HPI; remainder reviewed with patient and in chart. ROS: Negative constitutional, eye, cardiovascular, pulmonary, GI, , MSK, skin , neurologic, psychiatric, endocrine unless noted in the HPI. Exam Gen: Pleasant, non-toxic appearing, resting comfortably. HEENT: NC, AT, PEERL, EOMI. Resp: Clear to auscultation bilaterally, normal work of breathing, no accessory muscle usage. Card: Regular rate and rhythm with no murmurs, rubs, or gallops, extremities warm and well perfused. GI: Non-tender to palpation throughout all quadrants, no focal tenderness at McBurney's point, negative Rondon's sign, non-distended, no rebound or guarding. : No suprapubic tenderness to palpation. MSK: No visible deformities, strength and tone without visually appreciable deficit. Skin: Normal color with no visible lesions. Neuro: alert and oriented 3, no facial asymmetry, vision and hearing WNL. Psych: Mood and affect appropriate. Labs / Imaging: WBC 21.06, HB 16.7, lactic 1.3, sodium 140, potassium 4.2, AST 18, ALT 21, alkaline phosphatase 103, total bilirubin 0.5, lipase 111, troponin (5:46 PM) 0.074 EKG: SR, no ST segment elevations or depressions, no LBBB, no hyperacute T waves. CXR: no acute cardiopulmonary disease process. Radiologist read pending. UA pending. UDS pending. CT abdomen/pelvis: pending. MDM Previous chart, nursing note, labs, imaging, and vitals reviewed. A: 74-year-old male with a history of chronic N/V with infrequent diarrhea presents requesting evaluation and treatment of typical recurrent symptoms that appear to have worsened today. DDx: SBO, partial SBO, volvulus, gastroenteritis, COVID-19, [place] (inferior wall), dehydration, electrolyte abnormalities, sepsis/bacteremia, UTI, ureterolithiasis , pyelonephritis, acute appendicitis, biliary disease. Evaluation: patient with leukocytosis, unclear if this is secondary to stress demargination from vomiting or infectious process. Imaging and urinalysis requiring greater than anticipated time to obtain. Empiric antibiotics ordered in an abundance of caution. ECG without clear ischemia, mild troponin elevation tentatively believed to be secondary to demand (type II NSTEMI). Patient given Zofran, 1 L NS, ciprofloxacin, and Flagyl. Patient care transferred to Dr. Crain, the oncoming overnight ED physician, pending completion of evaluation. Impression: nausea, vomiting. abdomen Pain Score (Numeric/FACES): 8 - Related Data Allergies Allergy/AdvReac Type Severity Reaction Status Date / Time levofloxacin [From Levaquin] Allergy Itching Verified 12/14/19 16:34 Penicillins Allergy Cannot Verified 12/14/19 16:34 Remember Home Meds: Home Meds Gabapentin [Neurontin] 600 mg PO TID PRN 10/12/17 [History] Lisinopril [Zestril] 5 mg PO DAILY 10/20/19 [History] Omeprazole 20 mg PO BEDTIME 10/20/19 [History] Albuterol Sulfate [Albuterol Sulfate Hfa] 2 puff IH QID PRN 11/19/19 [History] Budesonide/Formoterol Fumarate [Symbicort 160-4.5 Mcg Inhaler] 2 puff IH BID 08/28 [History] Metoprolol Tartrate 25 mg PO DAILY 11/19/19 [History] Pravastatin [Pravachol] 20 mg PO DAILY 11/19/19 [History] Past Medical History HEENT History: Reports: Impaired Vision Other HEENT History: has top and bottom dentures, wears glasses Cardiovascular History: Reports: Bypass, CAD, High Cholesterol, Hypertension, [place] Respiratory History: Reports: COPD Other Respiratory History: smokes 1 pk of cigarettes per day for over 50 yrs Gastrointestinal History: Reports: Hepatitis Other Gastrointestinal History: states he is on his last treatment for hepatitis C,h/o elevated LFT'S Genitourinary History: Reports: Prostate Disorder Musculoskeletal History: Reports: Back Pain, Chronic Other Musculoskeletal History: WILLA, chronic leg pain Neurological History: Reports: None Psychiatric History: Reports: Addiction, Other (See Below) Other Psychiatric History: hx ETOH abuse Endocrine/Metabolic History: Reports: Obesity/BMI 30+ Hematologic History: Reports: None Immunologic History: Reports: None Oncologic (Cancer) History: Reports: None Dermatologic History: Reports: None - Infectious Disease History Infectious Disease History: Reports: Chicken Pox, Hepatitis C, Mumps - Past Surgical History Head Surgeries/Procedures: Reports: None HEENT Surgical History: Reports: Naso-Sinus Surgery Cardiovascular Surgical History: Reports: Coronary Artery Bypass, Vascular Surgery Respiratory Surgical History: Reports: None GI Surgical History: Reports: Appendectomy Male Surgical History: Reports: TURP-Transurethral Resection of Prostate Endocrine Surgical History: Reports: None Neurological Surgical History: Reports: Laminectomy Musculoskeletal Surgical History: Reports: Other (See Below) Other Musculoskeletal Surgeries/Procedures:: left foot - 3 hammer toe repair Dermatological Surgical History: Reports: None Social & Family History - Family History Family Medical History: Noncontributory - Tobacco Use Smoking Status *Q: Former Smoker Used Tobacco, but Quit: Yes Month/Year Tobacco Last Used: 2018 - Caffeine Use Caffeine Use: Reports: Coffee, Soda - Recreational Drug Use Recreational Drug Use: Yes Drug Use in Last 12 Months: Yes Recreational Drug Type: Reports: Marijuana/Hashish, Methamphetamine - Living Situation & Occupation Living situation: Reports: with Significant Other ED ROS GENERAL - Review of Systems Review Of Systems: See Below ED EXAM, GENERAL - Physical Exam Exam: See Below Course - Vital Signs Last Recorded V/S: Last Vital Signs Temp 36.1 C 12/14/19 16:32 Pulse 95 12/14/19 16:32 Resp 18 12/14/19 16:32 BP 133/86 12/14/19 16:32 Pulse Ox 94 L 12/14/19 16:32 - Orders/Labs/Meds Orders: Active Orders 24 hr Category Date Time Status EKG Documentation Completion [RC] STAT Care 12/14/19 16:33 Active Abdomen Pelvis w Cont [CT] Stat Exams 12/14/19 18:00 Ordered CXR [Chest 1V Frontal] [CR] Stat Exams 12/14/19 17:50 Taken DRUG SCREEN, URINE [URCHEM] Stat Lab 12/14/19 16:56 Ordered UA RFX AVA AND CULT IF INDIC [URIN] Stat Lab 12/14/19 16:32 Ordered Ciprofloxacin in D5W [Cipro in D5W 400 MG/200 ML] 400 Med 12/14/19 19:10 Ordered mg Premix Bag 1 bag IV NOW metroNIDAZOLE/Normal Saline [Flagyl 500 MG in NS 100 ML Med 12/14/19 19:10 Ordered ] 500 mg Premix Bag 1 bag IV ONETIME Labs: Laboratory Tests 12/14/19 12/14/19 12/14/19 Range/Units 17:46 17:46 17:46 WBC 21.06 H (4.0-11.0) K/uL RBC 5.43 (4.50-5.90) M/uL Hgb 16.7 (13.0-17.0) g/dL Hct 50.2 H (38.0-50.0) % MCV 92.4 (80.0-98.0) fL MCH 30.8 (27.0-32.0) pg MCHC 33.3 (31.0-37.0) g/dL RDW Std Deviation 48.3 (28.0-62.0) fl RDW Coeff of Sheba 14 (11.0-15.0) % Plt Count 184 (150-400) K/uL MPV 10.00 (7.40-12.00) fL Neut % (Auto) 82.2 H (48.0-80.0) % Lymph % (Auto) 4.4 L (16.0-40.0) % [place] % (Auto) 12.8 (0.0-15.0) % Eos % (Auto) 0.5 (0.0-7.0) % Baso % (Auto) 0.1 (0.0-1.5) % Neut # (Auto) 17.3 H (1.4-5.7) K/uL Lymph # (Auto) 0.9 (0.6-2.4) K/uL [place] # (Auto) 2.7 H (0.0-0.8) K/uL Eos # (Auto) 0.1 (0.0-0.7) K/uL Baso # (Auto) 0.0 (0.0-0.1) K/uL Nucleated RBC % 0.0 /100WBC Nucleated RBCs # 0 K/uL Lactate 1.3 (0.20-2.00) mmol/L Sodium 140 (136-148) mmol/L Potassium 4.2 (3.5-5.1) mmol/L Chloride 106 (98-107) mmol/L Carbon Dioxide 22.3 (21.0-32.0) mmol/L BUN 29 H (7.0-18.0) mg/dL Creatinine 0.7 L (0.8-1.3) mg/dL Est Cr Clr Drug Dosing 103.05 mL/min Estimated GFR (MDRD) > 60.0 ml/min Glucose 117 H (74-106) mg/dL Calcium 8.2 L (8.5-10.1) mg/dL Total Bilirubin 0.5 (0.2-1.0) mg/dL AST 18 (15-37) IU/L ALT 21 (14-63) IU/L Alkaline Phosphatase 103 (46-116) U/L Troponin I 0.074 H* (0.000-0.056) ng/mL Total Protein 6.7 (6.4-8.2) g/dL Albumin 3.2 L (3.4-5.0) g/dL Globulin 3.5 (2.6-4.0) g/dL Albumin/Globulin Ratio 0.9 (0.9-1.6) Lipase 111 (73-393) U/L Meds: Medications Discontinued Medications Generic Name Dose Route Start Last Admin Trade Name Freq PRN Reason Stop Dose Admin Sodium Chloride 1,000 mls @ 1,000 mls/hr 12/14/19 16:33 12/14/19 17:14 Normal Saline IV 12/14/19 17:32 1,000 mls/hr .Bolus ONE Administration Ondansetron HCl 4 mg 12/14/19 16:33 12/14/19 17:13 Zofran IVPUSH 12/14/19 16:34 4 mg ONETIME ONE Administration Departure - Departure Time of Disposition: 19:18 Disposition: Still A Patient 30 Clinical Impression: Nausea and vomiting - Discharge Information Referrals: PCP,None [Primary Care Provider] - Sepsis Event Note - Evaluation Sepsis Screening Result: No Definite Risk - Focused Exam Vital Signs: Vital Signs Temp Pulse Resp BP Pulse Ox 12/14/19 16:32 36.1 C 95 18 133/86 94 L Date Exam was Performed: 12/14/19 Time Exam was Performed: 19:17 - My Orders Last 24 Hours: My Active Orders 12/14/19 16:32 UA RFX AVA AND CULT IF INDIC [URIN] Stat 12/14/19 16:33 EKG Documentation Completion [RC] STAT 12/14/19 16:56 DRUG SCREEN, URINE [URCHEM] Stat 12/14/19 17:50 CXR [Chest 1V Frontal] [CR] Stat 12/14/19 18:00 Abdomen Pelvis w Cont [CT] Stat 12/14/19 19:10 Ciprofloxacin in D5W [Cipro in D5W 400 MG/200 ML] 400 mg Premix Bag 1 bag IV NOW metroNIDAZOLE/Normal Saline [Flagyl 500 MG in NS 100 ML] 500 mg Premix Bag 1 bag IV ONETIME - Assessment/Plan Last 24 Hours: My Active Orders 12/14/19 16:32 UA RFX AVA AND CULT IF INDIC [URIN] Stat 12/14/19 16:33 EKG Documentation Completion [RC] STAT 12/14/19 16:56 DRUG SCREEN, URINE [URCHEM] Stat 12/14/19 17:50 CXR [Chest 1V Frontal] [CR] Stat 12/14/19 18:00 Abdomen Pelvis w Cont [CT] Stat 12/14/19 19:10 Ciprofloxacin in D5W [Cipro in D5W 400 MG/200 ML] 400 mg Premix Bag 1 bag IV NOW metroNIDAZOLE/Normal Saline [Flagyl 500 MG in NS 100 ML] 500 mg Premix Bag 1 bag IV ONETIME
[2019-12-14] MEDS ORDERED: Iopamidol 755 Mg/ML 100 ML Bottle IVPUSH STA (20:17)
--- NOTE | 2019-12-14 20:47 | CT ---
INDICATION: Abdominal pain. Nausea and vomiting. CT ABDOMEN AND PELVIS WITH CONTRAST TECHNIQUE: Multidetector CT imaging was performed through the abdomen and pelvis following intravenous contrast administration using 100 mL Isovue 300. Coronal and sagittal reconstructions were generated. COMPARISON: 10/20/2019 CT abdomen and pelvis. FINDINGS: No contrast enhancement is visible, despite intravenous contrast having reportedly been given. Lower chest: Minimal bibasilar lung atelectasis or scarring. Bibasilar pleural calcifications, as before, possibly reflecting prior asbestos exposure. Liver: Unremarkable aside from a calcified granuloma in the right hepatic lobe. Gallbladder and bile ducts: No gallbladder wall thickening or calcified gallstones. No biliary dilation identified. Pancreas: Multiple punctate calcifications suggesting chronic pancreatitis. Spleen: Normal. Adrenals: No nodules or masses. Kidneys, ureters, and urinary bladder: No urinary tract stones identified. No renal masses or hydronephrosis. Mild wall thickening of the urinary bladder, similar to the previous exam. Gastrointestinal tract and abdominal wall: Very small hiatal hernia. Normal caliber bowel without wall thickening or obstruction. The appendix is not identified. No significant change in small fat-containing epigastric, umbilical, and right inguinal hernias. 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 Status post aortobifemoral bypass graft, as before. Peritoneum: No free air, abscess, or significant free fluid. Lymph nodes: No pathologically enlarged nodes identified. Reproductive organs: Mild to moderate prostatomegaly. Bones: Spinal degenerative changes. Postoperative changes of lumbar laminectomy, as before. Left femoral neck screw. IMPRESSION: 1. No acute abnormality identified. No cause for the patient`s symptoms is demonstrated. 2. Multiple nonacute findings as detailed above. SEBASTIEN LARA MD [facility] Dictated by Emanuel Lara MD @ 12/14/2019 8:43:05 PM Dictated by: Emanuel Lara MD @ 12/14/2019 20:45:51 (Electronically Signed)
[2019-12-14] MEDS ORDERED: Aspirin 81 MG Tab.Chew PO ONE (20:59)
--- NOTE | 2019-12-14 22:13 | PCM.PN ---
- General Info Date of Service: 12/14/19 Subjective Update: Patient 74-year-old male signed out from the daytime attending Dr. Fuentes presenting with chief complaint of epigastric pain and vomiting. Symptoms have been ongoing for the past 3 days. Patient was pending CT scan and repeat labs. CT scan does not demonstrate any acute findings. Patient's pain has improved with analgesia. Patient received IV antibiotics. Patient's initial troponin is elevated at 0.074. EKG was within normal limits. Repeat EKG and troponin were within normal limits. Vital signs remained normal limits Patient is comfortable in bed. Patient has no significant abdominal tenderness on exam. Assessment and plan: Patient 74-year-old male presenting with epigastric pain and vomiting. Patient has numerous medical comorbidities and continues to use methamphetamines. Patient differential includes chronic pancreatitis, atypical ACS, gastritis. Given that patient had elevated troponin which is abnormal based on prior visits and prior labs, and that the troponin trended down this is likely type II VA. Pt will be placed on obs for telemetry monitoring for repeat labs, pain control and further evaluation by medicine. Pt will benefit from early stress testing and echocardiogram. Dr. Jewell accepted patient for observation. - Patient Data Vitals - Most Recent: Last Vital Signs Temp 36.1 C 12/14/19 16:32 Pulse 95 12/14/19 16:32 Resp 18 12/14/19 16:32 BP 133/86 12/14/19 16:32 Pulse Ox 94 L 12/14/19 16:32 Weight - Most Recent: 108.862 kg Lab Results Last 24 Hours: Laboratory Results - last 24 hr 12/14/19 12/14/19 12/14/19 Range/Units 17:46 17:46 17:46 WBC 21.06 H (4.0-11.0) K/uL RBC 5.43 (4.50-5.90) M/uL Hgb 16.7 (13.0-17.0) g/dL Hct 50.2 H (38.0-50.0) % MCV 92.4 (80.0-98.0) fL MCH 30.8 (27.0-32.0) pg MCHC 33.3 (31.0-37.0) g/dL RDW Std Deviation 48.3 (28.0-62.0) fl RDW Coeff of Sheba 14 (11.0-15.0) % Plt Count 184 (150-400) K/uL MPV 10.00 (7.40-12.00) fL Neut % (Auto) 82.2 H (48.0-80.0) % Lymph % (Auto) 4.4 L (16.0-40.0) % Elliott % (Auto) 12.8 (0.0-15.0) % Eos % (Auto) 0.5 (0.0-7.0) % Baso % (Auto) 0.1 (0.0-1.5) % Neut # (Auto) 17.3 H (1.4-5.7) K/uL Lymph # (Auto) 0.9 (0.6-2.4) K/uL Elliott # (Auto) 2.7 H (0.0-0.8) K/uL Eos # (Auto) 0.1 (0.0-0.7) K/uL Baso # (Auto) 0.0 (0.0-0.1) K/uL Nucleated RBC % 0.0 /100WBC Nucleated RBCs # 0 K/uL Lactate 1.3 (0.20-2.00) mmol/L Sodium 140 (136-148) mmol/L Potassium 4.2 (3.5-5.1) mmol/L Chloride 106 (98-107) mmol/L Carbon Dioxide 22.3 (21.0-32.0) mmol/L BUN 29 H (7.0-18.0) mg/dL Creatinine 0.7 L (0.8-1.3) mg/dL Est Cr Clr Drug Dosing 103.05 mL/min Estimated GFR (MDRD) > 60.0 ml/min Glucose 117 H (74-106) mg/dL Calcium 8.2 L (8.5-10.1) mg/dL Total Bilirubin 0.5 (0.2-1.0) mg/dL AST 18 (15-37) IU/L ALT 21 (14-63) IU/L Alkaline Phosphatase 103 (46-116) U/L Troponin I 0.074 H* (0.000-0.056) ng/mL Total Protein 6.7 (6.4-8.2) g/dL Albumin 3.2 L (3.4-5.0) g/dL Globulin 3.5 (2.6-4.0) g/dL Albumin/Globulin Ratio 0.9 (0.9-1.6) Lipase 111 (73-393) U/L Urine Color Urine Appearance Urine pH (5.0-8.0) Ur Specific Carson (1.001-1.035) Urine Protein (NEGATIVE) mg/dL Urine Glucose (UA) (NEGATIVE) mg/dL Urine Ketones (NEGATIVE) mg/dL Urine Occult Blood (NEGATIVE) Urine Nitrite (NEGATIVE) Urine Bilirubin (NEGATIVE) Urine Urobilinogen (<2.0) EU/dL Ur Leukocyte Esterase (NEGATIVE) Urine RBC (0-2/HPF) Urine WBC (0-5/HPF) Ur Epithelial Cells (NONE-FEW) Amorphous Sediment (NEGATIVE) Urine Bacteria (NEGATIVE) Urine Mucus (NONE-MOD) Urine Opiates Screen (NEGATIVE) Ur Oxycodone Screen (NEGATIVE) Urine Methadone Screen (NEGATIVE) Ur Barbiturates Screen (NEGATIVE) Ur Phencyclidine Scrn (NEGATIVE) Ur Amphetamine Screen (NEGATIVE) U Methamphetamines Scrn (NEGATIVE) U Benzodiazepines Scrn (NEGATIVE) U Cocaine Metab Screen (NEGATIVE) U Marijuana (THC) Screen (NEGATIVE) 12/14/19 12/14/19 12/14/19 Range/Units 20:16 20:16 21:16 WBC (4.0-11.0) K/uL RBC (4.50-5.90) M/uL Hgb (13.0-17.0) g/dL Hct (38.0-50.0) % MCV (80.0-98.0) fL MCH (27.0-32.0) pg MCHC (31.0-37.0) g/dL RDW Std Deviation (28.0-62.0) fl RDW Coeff of Sheba (11.0-15.0) % Plt Count (150-400) K/uL MPV (7.40-12.00) fL Neut % (Auto) (48.0-80.0) % Lymph % (Auto) (16.0-40.0) % Elliott % (Auto) (0.0-15.0) % Eos % (Auto) (0.0-7.0) % Baso % (Auto) (0.0-1.5) % Neut # (Auto) (1.4-5.7) K/uL Lymph # (Auto) (0.6-2.4) K/uL Elliott # (Auto) (0.0-0.8) K/uL Eos # (Auto) (0.0-0.7) K/uL Baso # (Auto) (0.0-0.1) K/uL Nucleated RBC % /100WBC Nucleated RBCs # K/uL Lactate (0.20-2.00) mmol/L Sodium (136-148) mmol/L Potassium (3.5-5.1) mmol/L Chloride (98-107) mmol/L Carbon Dioxide (21.0-32.0) mmol/L BUN (7.0-18.0) mg/dL Creatinine (0.8-1.3) mg/dL Est Cr Clr Drug Dosing mL/min Estimated GFR (MDRD) ml/min Glucose (74-106) mg/dL Calcium (8.5-10.1) mg/dL Total Bilirubin (0.2-1.0) mg/dL AST (15-37) IU/L ALT (14-63) IU/L Alkaline Phosphatase (46-116) U/L Troponin I < 0.050 (0.000-0.056) ng/mL Total Protein (6.4-8.2) g/dL Albumin (3.4-5.0) g/dL Globulin (2.6-4.0) g/dL Albumin/Globulin Ratio (0.9-1.6) Lipase (73-393) U/L Urine Color YELLOW Urine Appearance CLEAR Urine pH 5.5 (5.0-8.0) Ur Specific Carson >= 1.030 (1.001-1.035) Urine Protein TRACE H (NEGATIVE) mg/dL Urine Glucose (UA) NEGATIVE (NEGATIVE) mg/dL Urine Ketones NEGATIVE (NEGATIVE) mg/dL Urine Occult Blood NEGATIVE (NEGATIVE) Urine Nitrite NEGATIVE (NEGATIVE) Urine Bilirubin NEGATIVE (NEGATIVE) Urine Urobilinogen 0.2 (<2.0) EU/dL Ur Leukocyte Esterase NEGATIVE (NEGATIVE) Urine RBC 0-2 (0-2/HPF) Urine WBC 2-3 (0-5/HPF) Ur Epithelial Cells FEW (NONE-FEW) Amorphous Sediment FEW (NEGATIVE) Urine Bacteria FEW (NEGATIVE) Urine Mucus FEW (NONE-MOD) Urine Opiates Screen NEGATIVE (NEGATIVE) Ur Oxycodone Screen NEGATIVE (NEGATIVE) Urine Methadone Screen NEGATIVE (NEGATIVE) Ur Barbiturates Screen NEGATIVE (NEGATIVE) Ur Phencyclidine Scrn NEGATIVE (NEGATIVE) Ur Amphetamine Screen NEGATIVE (NEGATIVE) U Methamphetamines Scrn POSITIVE (NEGATIVE) U Benzodiazepines Scrn NEGATIVE (NEGATIVE) U Cocaine Metab Screen NEGATIVE (NEGATIVE) U Marijuana (THC) Screen NEGATIVE (NEGATIVE) Med Orders - Current: Current Medications Discontinued Medications Aspirin (Aspirin) 324 mg PO ONETIME ONE Stop: 12/14/19 21:00 Last Admin: 12/14/19 21:19 Dose: 324 mg Sodium Chloride (Normal Saline) 1,000 mls @ 1,000 mls/hr IV .Bolus ONE Stop: 12/14/19 17:32 Last Admin: 12/14/19 17:14 Dose: 1,000 mls/hr Ciprofloxacin/Dextrose 400 mg/ (Premix) 200 mls @ 200 mls/hr IV NOW STA Stop: 12/14/19 20:09 Last Admin: 12/14/19 21:18 Dose: 200 mls/hr Metronidazole 500 mg/ Premix 100 mls @ 100 mls/hr IV ONETIME ONE Stop: 12/14/19 20:09 Last Admin: 12/14/19 19:45 Dose: 100 mls/hr Iopamidol (Isovue-370 (76%)) 100 ml IVPUSH ONETIME STA Stop: 12/14/19 20:18 Last Admin: 12/14/19 20:17 Dose: 100 ml Ondansetron HCl (Zofran) 4 mg IVPUSH ONETIME ONE Stop: 12/14/19 16:34 Last Admin: 12/14/19 17:13 Dose: 4 mg Sepsis Event Note - Evaluation Sepsis Screening Result: No Definite Risk - Focused Exam Vital Signs: Vital Signs Temp Pulse Resp BP Pulse Ox 12/14/19 16:32 36.1 C 95 18 133/86 94 L Date Exam was Performed: 12/14/19 Time Exam was Performed: 22:08 - Problem List Review Problem List Initiated/Reviewed/Updated: Yes - My Orders Last 24 Hours: My Active Orders 12/14/19 20:53 EKG Documentation Completion [RC] STAT 12/14/19 22:00 Admission Status [Patient Status] [ADT] Stat
[2019-12-14] MEDS ORDERED: Morphine 10 MG/ML Syringe IVPUSH PRN (22:16)
[2019-12-14] MEDS ORDERED: Ondansetron 4 MG/2 ML SDV IVPUSH PRN (22:16)
[2019-12-14] MEDS ORDERED: metroNIDAZOLE/Normal Saline 500 MG in Premix Bag 1 BAG IV SCH (22:30)
[2019-12-14] MEDS: Lactated Ringers 1,000 ML IV SCH (23:15)
[2019-12-14] MEDS ORDERED: Pantoprazole 40 MG Vial IV SCH (23:32)
[2019-12-15] MEDS ORDERED: metroNIDAZOLE/Normal Saline 500 MG in Premix Bag 1 BAG IV SCH (04:00)
[2019-12-15 06:03] LABS: CARBON DIOXIDE,CO2 26.8 mmol/L (21.0-32.0); POTASSIUM,K 4.7 mmol/L (3.5-5.1)
[2019-12-15] MEDS: Lactated Ringers 1,000 ML IV SCH ×2 (08:41→19:29)
[2019-12-15] MEDS ORDERED: Pantoprazole 40 MG Vial IV SCH (09:00)
[2019-12-15] MEDS ORDERED: Ciprofloxacin in D5W 400 MG in Premix Bag 1 BAG IV SCH ×2 (09:00)
--- NOTE | 2019-12-15 09:22 | PCM.HP.2 ---
H&P History of Present Illness - General Date of Service: 12/15/19 Admit Problem/Dx: Admission Diagnosis/Problem Admission Diagnosis/Problem Vomiting Source of Information: Patient History Limitations: Reports: No Limitations - History of Present Illness Initial Comments - Free Text/Narative: This 74 year old male with pmh of HLD, CAD, CABG, COPD, PVD, and hx bilateral iliac stents presented to the ED with complaints of nausea, vomiting and abdominal pain. He reports the pain and nausea started 4 days ago in the afternoon. He came in after the nausea didn't get better. He reports the pain is in the epigastric region and feels bloated. He denies coffee ground emesis or marquise bloody emesis. Mild loose stools, for a day, but no longer having stools. He denies alcohol use. He does reports attempting to use meth 2 days ago for nausea, which it didn't help. He denies fevers, chills or headache. No URI symptoms. No chest pain or SOB beyond baseline. Reports L leg pain, which is chronic in nature. He denies tobacco abuse, 5 or so years ago, no alcohol use currently, has history of alcohol abuse, quit 12+ years ago. In the ED leukocytosis 21,060, platelets 184,000 CMP WNL. lipase 111. Troponin elevated 0.074, CXR negative and EKG SR with no acute ST changes. Abdominal CT obtained which reveals nothing acute, but noted chronic pancreatitis. Bilateral Leg Pain Score (Numeric/FACES): 7 abdomen Pain Score (Numeric/FACES): 4 - Related Data Allergies/Adverse Reactions: Allergies Allergy/AdvReac Type Severity Reaction Status Date / Time Penicillins Allergy Severe Bronchospas Verified 12/15/19 00:35 ms levofloxacin [From Levaquin] Allergy Other Verified 12/15/19 00:35 Home Medications: Home Meds Lidocaine 5% [Lidoderm 5%] 5 percent TOP Q12H PRN 12/15/19 [History] Metoclopramide [Reglan] 10 mg PO QIDACANDBED 12/15/19 [History] traMADol HCl [Tramadol HCl] 50 mg PO Q6H PRN 12/15/19 [History] Past Medical History HEENT History: Reports: Impaired Vision Other HEENT History: has top and bottom dentures, wears glasses Cardiovascular History: Reports: Bypass, CAD, High Cholesterol, Hypertension, [place] Respiratory History: Reports: COPD Gastrointestinal History: Reports: Hepatitis Genitourinary History: Reports: Prostate Disorder Musculoskeletal History: Reports: Back Pain, Chronic Other Musculoskeletal History: WILLA, chronic leg pain Neurological History: Reports: None. Denies: CVA, TIA Psychiatric History: Reports: Addiction, Other (See Below) Other Psychiatric History: hx ETOH abuse Endocrine/Metabolic History: Reports: Obesity/BMI 30+ Hematologic History: Reports: None Immunologic History: Reports: None Oncologic (Cancer) History: Reports: None Dermatologic History: Reports: None - Infectious Disease History Infectious Disease History: Reports: Chicken Pox, Hepatitis C, Mumps - Past Surgical History Head Surgeries/Procedures: Reports: None HEENT Surgical History: Reports: Naso-Sinus Surgery Cardiovascular Surgical History: Reports: Coronary Artery Bypass, Vascular Surgery Respiratory Surgical History: Reports: None GI Surgical History: Reports: Appendectomy Male Surgical History: Reports: TURP-Transurethral Resection of Prostate Endocrine Surgical History: Reports: None Neurological Surgical History: Reports: Laminectomy Musculoskeletal Surgical History: Reports: Other (See Below) Other Musculoskeletal Surgeries/Procedures:: left foot - 3 hammer toe repair Dermatological Surgical History: Reports: None Social & Family History - Family History Family Medical History: Noncontributory - Tobacco Use Smoking Status *Q: Former Smoker Used Tobacco, but Quit: Yes Month/Year Tobacco Last Used: 2019 - Caffeine Use Caffeine Use: Reports: Coffee, Soda - Alcohol Use Alcohol Use History: Yes Alcohol Use in Last Twelve Months: No - Recreational Drug Use Recreational Drug Use: Yes Drug Use in Last 12 Months: Yes Recreational Drug Type: Reports: Marijuana/Hashish, Methamphetamine - Living Situation & Occupation Living situation: Reports: with Significant Other H&P Review of Systems - Review of Systems: Review Of Systems: See Below General: Reports: No Symptoms. Denies: Fever, Chills, Malaise, Weakness HEENT: Reports: No Symptoms. Denies: Hearing Changes, Sinus Congestion, Visual Changes Pulmonary: Reports: No Symptoms. Denies: Shortness of Breath, Cough, Sputum Cardiovascular: Reports: No Symptoms. Denies: Chest Pain, Lightheadedness Gastrointestinal: Reports: Abdominal Pain, Diarrhea, Decreased Appetite, Distension, Nausea, Vomiting. Denies: Black Stool, Bloody Stool, Hematemesis, Hematochezia Genitourinary: Reports: No Symptoms. Denies: Dysuria, Frequency, Burning Musculoskeletal: Reports: Back Pain, Leg Pain (chronic) Skin: Reports: No Symptoms Psychiatric: Reports: No Symptoms Neurological: Reports: No Symptoms Exam - Exam Exam: See Below - Vital Signs Vital Signs: Last Vital Signs Temp 97.6 F 12/15/19 08:00 Pulse 82 12/15/19 08:00 Resp 20 12/15/19 08:00 BP 122/69 12/15/19 08:00 Pulse Ox 95 12/15/19 08:00 Weight: 110.79 kg - Exam General: Alert, Oriented, Cooperative Lungs: Clear to Auscultation, Normal Respiratory Effort Cardiovascular: Regular Rate, Regular Rhythm GI/Abdominal Exam: Normal Bowel Sounds, Soft, No Distention, Tender (epigastric tenderness), Other (obese abdomen) Back Exam: Normal Inspection Extremities: Normal Inspection, Normal Range of Motion, Non-Tender Neuro Extensive - Mental Status: Alert, Oriented x3 Neuro Extensive - Motor, Sensory, Reflexes: CN II-XII Intact Psychiatric: Alert, Normal Affect, Normal Mood - Patient Data Lab Results Last 24 hrs: Laboratory Results - last 24 hr 12/14/19 12/14/19 12/14/19 Range/Units 17:46 17:46 17:46 WBC 21.06 H (4.0-11.0) K/uL RBC 5.43 (4.50-5.90) M/uL Hgb 16.7 (13.0-17.0) g/dL Hct 50.2 H (38.0-50.0) % MCV 92.4 (80.0-98.0) fL MCH 30.8 (27.0-32.0) pg MCHC 33.3 (31.0-37.0) g/dL RDW Std Deviation 48.3 (28.0-62.0) fl RDW Coeff of [place] 14 (11.0-15.0) % Plt Count 184 (150-400) K/uL MPV 10.00 (7.40-12.00) fL Neut % (Auto) 82.2 H (48.0-80.0) % Lymph % (Auto) 4.4 L (16.0-40.0) % [place] % (Auto) 12.8 (0.0-15.0) % Eos % (Auto) 0.5 (0.0-7.0) % Baso % (Auto) 0.1 (0.0-1.5) % Neut # (Auto) 17.3 H (1.4-5.7) K/uL Lymph # (Auto) 0.9 (0.6-2.4) K/uL [place] # (Auto) 2.7 H (0.0-0.8) K/uL Eos # (Auto) 0.1 (0.0-0.7) K/uL Baso # (Auto) 0.0 (0.0-0.1) K/uL Nucleated RBC % 0.0 /100WBC Nucleated RBCs # 0 K/uL Lactate 1.3 (0.20-2.00) mmol/L Sodium 140 (136-148) mmol/L Potassium 4.2 (3.5-5.1) mmol/L Chloride 106 (98-107) mmol/L Carbon Dioxide 22.3 (21.0-32.0) mmol/L BUN 29 H (7.0-18.0) mg/dL Creatinine 0.7 L (0.8-1.3) mg/dL Est Cr Clr Drug Dosing 103.05 mL/min Estimated GFR (MDRD) > 60.0 ml/min Glucose 117 H (74-106) mg/dL Calcium 8.2 L (8.5-10.1) mg/dL Phosphorus (2.6-4.7) mg/dL Magnesium (1.8-2.4) mg/dL Total Bilirubin 0.5 (0.2-1.0) mg/dL AST 18 (15-37) IU/L ALT 21 (14-63) IU/L Alkaline Phosphatase 103 (46-116) U/L Troponin I 0.074 H* (0.000-0.056) ng/mL Total Protein 6.7 (6.4-8.2) g/dL Albumin 3.2 L (3.4-5.0) g/dL Globulin 3.5 (2.6-4.0) g/dL Albumin/Globulin Ratio 0.9 (0.9-1.6) Lipase 111 (73-393) U/L Urine Color Urine Appearance Urine pH (5.0-8.0) Ur Specific [place] (1.001-1.035) Urine Protein (NEGATIVE) mg/dL Urine Glucose (UA) (NEGATIVE) mg/dL Urine Ketones (NEGATIVE) mg/dL Urine Occult Blood (NEGATIVE) Urine Nitrite (NEGATIVE) Urine Bilirubin (NEGATIVE) Urine Urobilinogen (<2.0) EU/dL Ur Leukocyte Esterase (NEGATIVE) Urine RBC (0-2/HPF) Urine WBC (0-5/HPF) Ur Epithelial Cells (NONE-FEW) Amorphous Sediment (NEGATIVE) Urine Bacteria (NEGATIVE) Urine Mucus (NONE-MOD) Urine Opiates Screen (NEGATIVE) Ur Oxycodone Screen (NEGATIVE) Urine Methadone Screen (NEGATIVE) Ur Barbiturates Screen (NEGATIVE) Ur Phencyclidine Scrn (NEGATIVE) Ur Amphetamine Screen (NEGATIVE) U Methamphetamines Scrn (NEGATIVE) U Benzodiazepines Scrn (NEGATIVE) U Cocaine Metab Screen (NEGATIVE) U Marijuana (THC) Screen (NEGATIVE) 12/14/19 12/14/19 12/14/19 Range/Units 20:16 20:16 21:16 WBC (4.0-11.0) K/uL RBC (4.50-5.90) M/uL Hgb (13.0-17.0) g/dL Hct (38.0-50.0) % MCV (80.0-98.0) fL MCH (27.0-32.0) pg MCHC (31.0-37.0) g/dL RDW Std Deviation (28.0-62.0) fl RDW Coeff of [place] (11.0-15.0) % Plt Count (150-400) K/uL MPV (7.40-12.00) fL Neut % (Auto) (48.0-80.0) % Lymph % (Auto) (16.0-40.0) % [place] % (Auto) (0.0-15.0) % Eos % (Auto) (0.0-7.0) % Baso % (Auto) (0.0-1.5) % Neut # (Auto) (1.4-5.7) K/uL Lymph # (Auto) (0.6-2.4) K/uL [place] # (Auto) (0.0-0.8) K/uL Eos # (Auto) (0.0-0.7) K/uL Baso # (Auto) (0.0-0.1) K/uL Nucleated RBC % /100WBC Nucleated RBCs # K/uL Lactate (0.20-2.00) mmol/L Sodium (136-148) mmol/L Potassium (3.5-5.1) mmol/L Chloride (98-107) mmol/L Carbon Dioxide (21.0-32.0) mmol/L BUN (7.0-18.0) mg/dL Creatinine (0.8-1.3) mg/dL Est Cr Clr Drug Dosing mL/min Estimated GFR (MDRD) ml/min Glucose (74-106) mg/dL Calcium (8.5-10.1) mg/dL Phosphorus (2.6-4.7) mg/dL Magnesium (1.8-2.4) mg/dL Total Bilirubin (0.2-1.0) mg/dL AST (15-37) IU/L ALT (14-63) IU/L Alkaline Phosphatase (46-116) U/L Troponin I < 0.050 (0.000-0.056) ng/mL Total Protein (6.4-8.2) g/dL Albumin (3.4-5.0) g/dL Globulin (2.6-4.0) g/dL Albumin/Globulin Ratio (0.9-1.6) Lipase (73-393) U/L Urine Color YELLOW Urine Appearance CLEAR Urine pH 5.5 (5.0-8.0) Ur Specific [place] >= 1.030 (1.001-1.035) Urine Protein TRACE H (NEGATIVE) mg/dL Urine Glucose (UA) NEGATIVE (NEGATIVE) mg/dL Urine Ketones NEGATIVE (NEGATIVE) mg/dL Urine Occult Blood NEGATIVE (NEGATIVE) Urine Nitrite NEGATIVE (NEGATIVE) Urine Bilirubin NEGATIVE (NEGATIVE) Urine Urobilinogen 0.2 (<2.0) EU/dL Ur Leukocyte Esterase NEGATIVE (NEGATIVE) Urine RBC 0-2 (0-2/HPF) Urine WBC 2-3 (0-5/HPF) Ur Epithelial Cells FEW (NONE-FEW) Amorphous Sediment FEW (NEGATIVE) Urine Bacteria FEW (NEGATIVE) Urine Mucus FEW (NONE-MOD) Urine Opiates Screen NEGATIVE (NEGATIVE) Ur Oxycodone Screen NEGATIVE (NEGATIVE) Urine Methadone Screen NEGATIVE (NEGATIVE) Ur Barbiturates Screen NEGATIVE (NEGATIVE) Ur Phencyclidine Scrn NEGATIVE (NEGATIVE) Ur Amphetamine Screen NEGATIVE (NEGATIVE) U Methamphetamines Scrn POSITIVE (NEGATIVE) U Benzodiazepines Scrn NEGATIVE (NEGATIVE) U Cocaine Metab Screen NEGATIVE (NEGATIVE) U Marijuana (THC) Screen NEGATIVE (NEGATIVE) 12/15/19 12/15/19 12/15/19 Range/Units 00:17 05:25 05:25 WBC 9.61 (4.0-11.0) K/uL RBC 4.88 (4.50-5.90) M/uL Hgb 14.8 (13.0-17.0) g/dL Hct 45.9 (38.0-50.0) % MCV 94.1 (80.0-98.0) fL MCH 30.3 (27.0-32.0) pg MCHC 32.2 (31.0-37.0) g/dL RDW Std Deviation 49.5 (28.0-62.0) fl RDW Coeff of [place] 15 (11.0-15.0) % Plt Count 209 (150-400) K/uL MPV 10.10 (7.40-12.00) fL Neut % (Auto) 65.2 (48.0-80.0) % Lymph % (Auto) 17.1 (16.0-40.0) % [place] % (Auto) 15.5 H (0.0-15.0) % Eos % (Auto) 1.8 (0.0-7.0) % Baso % (Auto) 0.4 (0.0-1.5) % Neut # (Auto) 6.3 H (1.4-5.7) K/uL Lymph # (Auto) 1.6 (0.6-2.4) K/uL [place] # (Auto) 1.5 H (0.0-0.8) K/uL Eos # (Auto) 0.2 (0.0-0.7) K/uL Baso # (Auto) 0.0 (0.0-0.1) K/uL Nucleated RBC % 0.0 /100WBC Nucleated RBCs # 0 K/uL Lactate (0.20-2.00) mmol/L Sodium 140 (136-148) mmol/L Potassium 4.7 (3.5-5.1) mmol/L Chloride 106 (98-107) mmol/L Carbon Dioxide 26.8 (21.0-32.0) mmol/L BUN 25 H (7.0-18.0) mg/dL Creatinine 1.3 (0.8-1.3) mg/dL Est Cr Clr Drug Dosing 55.49 mL/min Estimated GFR (MDRD) 53.8 ml/min Glucose 116 H (74-106) mg/dL Calcium 8.1 L (8.5-10.1) mg/dL Phosphorus 3.2 (2.6-4.7) mg/dL Magnesium 1.8 (1.8-2.4) mg/dL Total Bilirubin (0.2-1.0) mg/dL AST (15-37) IU/L ALT (14-63) IU/L Alkaline Phosphatase (46-116) U/L Troponin I < 0.050 (0.000-0.056) ng/mL Total Protein (6.4-8.2) g/dL Albumin (3.4-5.0) g/dL Globulin (2.6-4.0) g/dL Albumin/Globulin Ratio (0.9-1.6) Lipase (73-393) U/L Urine Color Urine Appearance Urine pH (5.0-8.0) Ur Specific [place] (1.001-1.035) Urine Protein (NEGATIVE) mg/dL Urine Glucose (UA) (NEGATIVE) mg/dL Urine Ketones (NEGATIVE) mg/dL Urine Occult Blood (NEGATIVE) Urine Nitrite (NEGATIVE) Urine Bilirubin (NEGATIVE) Urine Urobilinogen (<2.0) EU/dL Ur Leukocyte Esterase (NEGATIVE) Urine RBC (0-2/HPF) Urine WBC (0-5/HPF) Ur Epithelial Cells (NONE-FEW) Amorphous Sediment (NEGATIVE) Urine Bacteria (NEGATIVE) Urine Mucus (NONE-MOD) Urine Opiates Screen (NEGATIVE) Ur Oxycodone Screen (NEGATIVE) Urine Methadone Screen (NEGATIVE) Ur Barbiturates Screen (NEGATIVE) Ur Phencyclidine Scrn (NEGATIVE) Ur Amphetamine Screen (NEGATIVE) U Methamphetamines Scrn (NEGATIVE) U Benzodiazepines Scrn (NEGATIVE) U Cocaine Metab Screen (NEGATIVE) U Marijuana (THC) Screen (NEGATIVE) Result Diagrams: 12/15/19 05:25 12/15/19 05:25 Sepsis Event Note - Evaluation Sepsis Screening Result: Sepsis Risk - Focused Exam Vital Signs: Vital Signs Temp Pulse Resp BP Pulse Ox Pulse Ox 12/15/19 08:00 97.6 F 82 20 122/69 95 12/15/19 03:00 98.8 F 86 18 101/52 L 93 L 12/15/19 00:12 97 12/15/19 00:11 97 12/14/19 23:00 98.6 F 92 18 133/72 97 12/14/19 22:25 96 16 114/59 L 94 L 12/14/19 22:00 90 18 133/86 93 L Date Exam was Performed: 12/15/19 Time Exam was Performed: 14:46 - Problem List (1) Acute on chronic pancreatitis SNOMED Code(s): 247518097 ICD Code: K85.90 - ACUTE PANCREATITIS WITHOUT NECROSIS OR INFECTION, UNSP; K86.1 - OTHER CHRONIC PANCREATITIS Status: Acute Current Visit: Yes (2) Chronic low back pain with bilateral sciatica SNOMED Code(s): 150054962 ICD Code: M54.41 - LUMBAGO WITH SCIATICA, RIGHT SIDE; M54.42 - LUMBAGO WITH SCIATICA, LEFT SIDE; G89.29 - OTHER CHRONIC PAIN Status: Chronic Current Visit: No Qualifiers: Back pain laterality: bilateral Qualified Code(s): M54.42 - Lumbago with sciatica, left side; M54.41 - Lumbago with sciatica, right side; G89.29 - Other chronic pain (3) CAD (coronary artery disease) SNOMED Code(s): 89352504 ICD Code: I25.10 - ATHSCL HEART DISEASE OF [place] CORONARY ARTERY W/O ANG PCTRS Status: Chronic Current Visit: No Qualifiers: Coronary Disease-Associated Artery/Lesion type: [place] artery [place] vs. transplanted heart: [place] heart Associated angina: without angina Qualified Code(s): I25.10 - Atherosclerotic heart disease of [place] coronary artery without angina pectoris (4) COPD (chronic obstructive pulmonary disease) SNOMED Code(s): 06093554 ICD Code: J44.9 - CHRONIC OBSTRUCTIVE PULMONARY DISEASE, UNSPECIFIED Status : Chronic Current Visit: No Qualifiers: COPD type: unspecified COPD Qualified Code(s): J44.9 - Chronic obstructive pulmonary disease, unspecified (5) HTN (hypertension) SNOMED Code(s): 74211463 ICD Code: I10 - ESSENTIAL (PRIMARY) HYPERTENSION Status: Chronic Current Visit: No Qualifiers: Hypertension type: essential hypertension Qualified Code(s): I10 - Essential (primary) hypertension (6) History of tobacco use SNOMED Code(s): 849137999 ICD Code: Z87.891 - PERSONAL HISTORY OF NICOTINE DEPENDENCE Status: Chronic Current Visit: No (7) Hx of CABG SNOMED Code(s): 387253825, 578687824 ICD Code: Z95.1 - PRESENCE OF AORTOCORONARY BYPASS GRAFT Status: Chronic Current Visit: No (8) PAD (peripheral artery disease) SNOMED Code(s): 269903787 ICD Code: I73.9 - PERIPHERAL VASCULAR DISEASE, UNSPECIFIED Status: Chronic Current Visit: No (9) Substance abuse SNOMED Code(s): 99183506 ICD Code: F19.10 - OTHER PSYCHOACTIVE SUBSTANCE ABUSE, UNCOMPLICATED Status : Chronic Current Visit: No (10) Tobacco abuse SNOMED Code(s): 669872473 ICD Code: Z72.0 - TOBACCO USE Status: Chronic Priority: Medium Current Visit: No Problem List Initiated/Reviewed/Updated: Yes Orders Last 24hrs: Active Orders 24 hr Category Date Time Status Admission Status [Patient Status] [ADT] Stat ADT 12/14/19 22:00 Active Ambulate [RC] ASDIRECTED Care 12/14/19 22:16 Active Antiembolic Devices [RC] PER UNIT ROUTINE Care 12/14/19 22:18 Active Oxygen Therapy [RC] PRN Care 12/14/19 22:16 Active Pulse Oximetry [RC] PRN Care 12/14/19 22:16 Active Telemetry Monitoring [Cardiac Monitoring] [RC] Q8H Care 12/14/19 22:45 Active VTE/DVT Education [RC] PER UNIT ROUTINE Care 12/14/19 22:16 Active Vital Signs [RC] Q4H Care 12/14/19 22:16 Active Nothing per Oral Now Diet [DIET] Diet 12/14/19 Dinner Active Abdomen Ltd [US] Urgent Exams 12/15/19 09:20 Ordered CXR [Chest 1V Frontal] [CR] Stat Exams 12/14/19 17:50 Taken LIPASE [CHEM] Routine Lab 12/15/19 09:19 Ordered Ciprofloxacin in D5W [Cipro in D5W 400 MG/200 ML] 400 Med 12/15/19 09:00 Active mg Premix Bag 1 bag IV Q12H Gabapentin [Neurontin] Med 12/15/19 14:00 Ordered 300 mg PO TID Lactated Ringers [Ringers, Lactated] 1,000 ml Med 12/14/19 22:30 Active IV ASDIRECTED Metoprolol Tartrate [Lopressor] Med 12/15/19 09:30 Ordered 25 mg PO BID Morphine Med 12/14/19 22:16 Active 2 mg IVPUSH Q4H PRN Ondansetron [Zofran] Med 12/14/19 22:16 Active 4 mg IVPUSH Q4H PRN Pantoprazole [ProTONIX IV] 40 mg Med 12/15/19 11:00 Active Sodium Chloride 0.9% [Normal Saline] 10 ml IV Q12H metroNIDAZOLE/Normal Saline [Flagyl 500 MG in NS 100 ML Med 12/15/19 04:00 Active ] 500 mg Premix Bag 1 bag IV Q8H Sequential Compression Device [OM.PC] Per Unit Routine Oth 12/14/19 22:17 Ordered Medication Orders Lactated Ringer's (Ringers, Lactated) 1,000 mls @ 125 mls/hr IV ASDIRECTED [facility] Last Admin: 12/15/19 08:41 Dose: 125 mls/hr Infusion: 12/15/19 07:15 Dose: 125 mls/hr Admin: 12/14/19 23:15 Dose: 125 mls/hr Ciprofloxacin/Dextrose 400 mg/ (Premix) 200 mls @ 200 mls/hr IV Q12H [facility] Last Admin: 12/15/19 08:36 Dose: 200 mls/hr Metronidazole 500 mg/ Premix 100 mls @ 100 mls/hr IV Q8H [facility] Last Admin: 12/15/19 03:55 Dose: 100 mls/hr Pantoprazole Sodium 40 mg/ (Sodium Chloride) 10 mls @ 300 mls/hr IV Q12H [facility] Morphine Sulfate (Morphine) 2 mg IVPUSH Q4H PRN PRN Reason: Pain (severe 7-10) Stop: 12/15/19 22:17 Last Admin: 12/14/19 23:48 Dose: 2 mg Ondansetron HCl (Zofran) 4 mg IVPUSH Q4H PRN PRN Reason: Nausea/Vomiting Last Admin: 12/14/19 23:58 Dose: 4 mg Assessment/Plan Comment:: This 74 year old male admitted with acute on chronic pancreatitis 1. Acute on Chronic pancreatitis: - Lipase elevated this am at 1510 - RUQ US revealed no gallstones. Fatty infiltration of the pancreas - Trial CL diet - Feeling improved today, wants to eat - Continue IVF for now, not aggressive due to CAD - Leukocytosis resolved, likely reactive to N/V and stress. Will stop abx. - Obtain Lipid panel 2. CAD/PVD/HTN/HLD - Start ASA, statin today. - Monitor BP. - Troponin elevated, trended to normal. No chest pain. Follow up with cardiology , likely secondary leak due to acute illness. - Confirming home medications with pharmacy as he is unaware completely of what he takes, fills at [facility]. Chronic leg pain: - Recommend PCP follow and PT VTE prophylaxis: Heparin Code status: Full Dispo: 1-2 days - Mortality Measure Prognosis:: Good
[2019-12-15] MEDS ORDERED: Metoprolol Tartrate 25 MG Tab PO SCH (09:30)
[2019-12-15] MEDS: Pantoprazole 40 MG in Sodium Chloride 0.9% 10 ML IV SCH ×2 (10:17→23:22)
--- NOTE | 2019-12-15 11:03 | US ---
Limited abdominal ultrasound: Multiple real-time images of the upper right abdomen were obtained. Comparison: Previous CT abdomen and pelvis study of 12/14/19. Liver contains no focal parenchymal abnormality. Pancreas is poorly seen due to diffuse fatty infiltration within the pancreas. Gallbladder contains no shadowing gallstones. No gallbladder wall thickening or biliary duct dilatation is seen. Right kidney shows no hydronephrosis or discrete mass. Right kidney has a length of 10.4 cm. Impression: 1. Poorly seen pancreas due to diffuse fatty infiltration within the pancreas. 2. No additional abnormality is seen on right upper quadrant abdominal ultrasound. Diagnostic code #2 This report was dictated in MDT
[2019-12-15] MEDS ORDERED: Lactated Ringers 1,000 ML IV ONE (11:55)
[2019-12-15] MEDS: Heparin Sodium 5,000 Units/ML Vial SUBCUT SCH ×2 (13:02→20:11)
[2019-12-15] MEDS ORDERED: Gabapentin 300 MG Cap PO SCH (14:00)
[2019-12-15] MEDS ORDERED: Gabapentin 300 MG Cap PO PRN (15:07)
[2019-12-15] MEDS ORDERED: Pravastatin 40 MG Tab PO SCH (21:00)
[2019-12-16] MEDS: Lactated Ringers 1,000 ML IV SCH (03:36)
[2019-12-16] MEDS: Heparin Sodium 5,000 Units/ML Vial SUBCUT SCH (03:42)
[2019-12-16 06:39] LABS: BLOOD UREA NITROGEN,BUN 13 mg/dL (7.0-18.0); CARBON DIOXIDE,CO2 29.7 mmol/L (21.0-32.0); CHLORIDE,CL 108 mmol/L (98-107); GLUCOSE RANDOM 106 mg/dL (74-106); POTASSIUM,K 4.4 mmol/L (3.5-5.1); SODIUM,NA 143 mmol/L (136-148)
[2019-12-16] MEDS ORDERED: Aspirin 81 MG Tab.EC PO SCH (09:00)
--- NOTE | 2019-12-16 09:54 | PCM.DCSUM1 ---
Discharge Summary - Hospital Course Brief History: This 74 year old male with pmh of HLD, CAD, CABG, COPD, PVD, and hx bilateral iliac stents presented to the ED with complaints of nausea, vomiting and abdominal pain. He reports the pain and nausea started 4 days ago in the afternoon. He came in after the nausea didn't get better. He reports the pain is in the epigastric region and feels bloated. He denies coffee ground emesis or marquise bloody emesis. Mild loose stools, for a day, but no longer having stools. He denies alcohol use. He does reports attempting to use meth 2 days ago for nausea, which it didn't help. He denies fevers, chills or headache. No URI symptoms. No chest pain or SOB beyond baseline. Reports L leg pain, which is chronic in nature. He denies tobacco abuse, 5 or so years ago, no alcohol use currently, has history of alcohol abuse, quit 12+ years ago. In the ED leukocytosis 21,060, platelets 184,000 CMP WNL. lipase 111. Troponin elevated 0.074, CXR negative and EKG SR with no acute ST changes. Abdominal CT obtained which reveals nothing acute, but noted chronic pancreatitis. Diagnosis: Stroke: No - Discharge Data Discharge Date: 12/16/19 Discharge Disposition: Home, Self-Care 01 Condition: Good - Referral to Home Health Primary Care Physician: PCP None - Discharge Diagnosis/Problem(s) (1) Acute on chronic pancreatitis SNOMED Code(s): 846873384 ICD Code: K85.90 - ACUTE PANCREATITIS WITHOUT NECROSIS OR INFECTION, UNSP; K86.1 - OTHER CHRONIC PANCREATITIS Status: Acute (2) Chronic low back pain with bilateral sciatica SNOMED Code(s): 694390767 ICD Code: M54.41 - LUMBAGO WITH SCIATICA, RIGHT SIDE; M54.42 - LUMBAGO WITH SCIATICA, LEFT SIDE; G89.29 - OTHER CHRONIC PAIN Status: Chronic Qualifiers: Back pain laterality: bilateral Qualified Code(s): M54.42 - Lumbago with sciatica, left side; M54.41 - Lumbago with sciatica, right side; G89.29 - Other chronic pain (3) CAD (coronary artery disease) SNOMED Code(s): 07690733 ICD Code: I25.10 - ATHSCL HEART DISEASE OF [place] CORONARY ARTERY W/O ANG PCTRS Status: Chronic Qualifiers: Coronary Disease-Associated Artery/Lesion type: [place] artery [place] vs. transplanted heart: tribe heart Associated angina: without angina Qualified Code(s): I25.10 - Atherosclerotic heart disease of [place] coronary artery without angina pectoris (4) COPD (chronic obstructive pulmonary disease) SNOMED Code(s): 40536784 ICD Code: J44.9 - CHRONIC OBSTRUCTIVE PULMONARY DISEASE, UNSPECIFIED Status : Chronic Qualifiers: COPD type: unspecified COPD Qualified Code(s): J44.9 - Chronic obstructive pulmonary disease, unspecified (5) HTN (hypertension) SNOMED Code(s): 40173507 ICD Code: I10 - ESSENTIAL (PRIMARY) HYPERTENSION Status: Chronic Qualifiers: Hypertension type: essential hypertension Qualified Code(s): I10 - Essential (primary) hypertension (6) History of tobacco use SNOMED Code(s): 822498252 ICD Code: Z87.891 - PERSONAL HISTORY OF NICOTINE DEPENDENCE Status: Chronic (7) Hx of CABG SNOMED Code(s): 792288566, 004688138 ICD Code: Z95.1 - PRESENCE OF AORTOCORONARY BYPASS GRAFT Status: Chronic (8) PAD (peripheral artery disease) SNOMED Code(s): 966701335 ICD Code: I73.9 - PERIPHERAL VASCULAR DISEASE, UNSPECIFIED Status: Chronic (9) Substance abuse SNOMED Code(s): 96414526 ICD Code: F19.10 - OTHER PSYCHOACTIVE SUBSTANCE ABUSE, UNCOMPLICATED Status : Chronic (10) Tobacco abuse SNOMED Code(s): 091561542 ICD Code: Z72.0 - TOBACCO USE Status: Chronic Priority: Medium - Patient Summary/Data Hospital Course: Admitting Diagnoses: Acute on chronic pancreatitis Discharge Diagnoses: Acute on chronic pancreatitis Leanna was admitted and treated with IVFs and bowel rest. Abdominal pain improved. CT revealed chronic pancreatitis, he also had elevation in Lipase. Likely acute on chronic pancreatitis. RUQ negative, no gallstones of dilation of CBD. Today he is able to tolerate soft diet and will be discharged home. He continues to have chronic L leg pain, which he was given prescription to see PT as outpatient. He was counseled on diet for pancreatitis. He was also counseled on not using of recreational drugs. He is to follow up with PCP and PT as prescribed. He is to continue home mediations as previously prescribed. - Patient Instructions Diet: GI Soft/Low Residue/Low Fiber Activity: As Tolerated, No Strenuous Activities Showering/Bathing: May Shower Notify Provider of: Fever, Increased Pain, Swelling and Redness, Drainage, Nausea and/or Vomiting - Discharge Plan *PRESCRIPTION DRUG MONITORING PROGRAM REVIEWED*: Not Applicable *COPY OF PRESCRIPTION DRUG MONITORING REPORT IN PATIENT JACY: Not Applicable Home Medications: Home Meds Gabapentin [Neurontin] 600 mg PO TID PRN 12/15/19 [History] Lidocaine 5% [Lidoderm 5%] 5 percent TOP Q12H PRN 12/15/19 [History] Metoclopramide [Reglan] 10 mg PO QIDACANDBED 12/15/19 [History] Metoprolol Tartrate 25 mg PO BID 12/15/19 [History] Pravastatin [Pravachol] 20 mg PO DAILY 12/15/19 [History] lisinopriL [Lisinopril] 5 mg PO DAILY 12/15/19 [History] traMADol HCl [Tramadol HCl] 50 mg PO Q6H PRN 12/15/19 [History] Aspirin [Halfprin] 81 mg PO DAILY tab.ec 12/16/19 [Rx] Oxygen Therapy Mode: Room Air Patient Handouts: Chronic Pancreatitis, Pancreatitis Eating Plan, Sciatica, [id number] Referrals: Marielena Cassidy PA [Physician Forms Analyst] - 12/28/19 2:45 pm - Discharge Summary/Plan Comment DC Time >30 min.: No - Patient Data Vitals - Most Recent: Last Vital Signs Temp 97.6 F 12/16/19 07:44 Pulse 70 12/16/19 07:44 Resp 16 12/16/19 07:44 BP 112/67 12/16/19 03:38 Pulse Ox 93 L 12/16/19 07:44 Weight - Most Recent: 110.79 kg I&O - Last 24 hours: Intake & Output 12/15/19 12/16/19 12/16/19 22:59 06:59 14:59 Intake Total 3799 2967 Output Total 1400 1253 Balance 2395 1734 Lab Results - Last 24 hrs: Laboratory Results - last 24 hr 12/15/19 12/16/19 12/16/19 Range/Units 05:25 06:03 06:03 WBC 9.23 (4.0-11.0) K/uL RBC 4.83 (4.50-5.90) M/uL Hgb 14.3 (13.0-17.0) g/dL Hct 46.0 (38.0-50.0) % MCV 95.2 (80.0-98.0) fL MCH 29.6 (27.0-32.0) pg MCHC 31.1 (31.0-37.0) g/dL RDW Std Deviation 49.8 (28.0-62.0) fl RDW Coeff of [place] 14 (11.0-15.0) % Plt Count 197 (150-400) K/uL MPV 10.20 (7.40-12.00) fL Neut % (Auto) 69.7 (48.0-80.0) % Lymph % (Auto) 16.7 (16.0-40.0) % [place] % (Auto) 11.6 (0.0-15.0) % Eos % (Auto) 1.7 (0.0-7.0) % Baso % (Auto) 0.3 (0.0-1.5) % Neut # (Auto) 6.4 H (1.4-5.7) K/uL Lymph # (Auto) 1.5 (0.6-2.4) K/uL [place] # (Auto) 1.1 H (0.0-0.8) K/uL Eos # (Auto) 0.2 (0.0-0.7) K/uL Baso # (Auto) 0.0 (0.0-0.1) K/uL Nucleated RBC % 0.0 /100WBC Nucleated RBCs # 0 K/uL Sodium 143 (136-148) mmol/L Potassium 4.4 (3.5-5.1) mmol/L Chloride 108 H (98-107) mmol/L Carbon Dioxide 29.7 (21.0-32.0) mmol/L BUN 13 (7.0-18.0) mg/dL Creatinine 1.1 (0.8-1.3) mg/dL Est Cr Clr Drug Dosing 65.57 mL/min Estimated GFR (MDRD) > 60.0 ml/min Glucose 106 (74-106) mg/dL Calcium 7.9 L (8.5-10.1) mg/dL Total Bilirubin 0.4 (0.2-1.0) mg/dL AST 15 (15-37) IU/L ALT 16 (14-63) IU/L Alkaline Phosphatase 84 (46-116) U/L Total Protein 5.8 L (6.4-8.2) g/dL Albumin 2.7 L (3.4-5.0) g/dL Globulin 3.1 (2.6-4.0) g/dL Albumin/Globulin Ratio 0.9 (0.9-1.6) Triglycerides 146 (0-200) mg/dL Cholesterol 149 (50-200) mg/dL LDL Cholesterol, Calc 86 (60-180) mg/dL VLDL Cholesterol 29 (5-55) mg/dL HDL Cholesterol 34 L (40-60) mg/dL Cholesterol/HDL Ratio 4.4 (3.3-6.0) Med Orders - Current: Current Medications Aspirin (Halfprin) 81 mg PO DAILY [facility] Last Admin: 12/16/19 08:25 Dose: 81 mg Gabapentin (Neurontin) 600 mg PO TID PRN PRN Reason: Pain Last Admin: 12/15/19 16:38 Dose: 600 mg Heparin Sodium (Porcine) (Heparin Sodium) 5,000 units SUBCUT Q8H [facility] Last Admin: 12/16/19 03:42 Dose: 5,000 units Pantoprazole Sodium 40 mg/ (Sodium Chloride) 10 mls @ 300 mls/hr IV Q12H [facility] Last Admin: 12/15/19 23:22 Dose: 300 mls/hr Ondansetron HCl (Zofran) 4 mg IVPUSH Q4H PRN PRN Reason: Nausea/Vomiting Last Admin: 12/14/19 23:58 Dose: 4 mg Pravastatin 20 Mg 1 each PO BEDTIME [facility] Last Admin: 12/15/19 20:13 Dose: Not Given Discontinued Medications Aspirin (Aspirin) 324 mg PO ONETIME ONE Stop: 12/14/19 21:00 Last Admin: 12/14/19 21:19 Dose: 324 mg Gabapentin (Neurontin) 300 mg PO TID [facility] Sodium Chloride (Normal Saline) 1,000 mls @ 1,000 mls/hr IV .Bolus ONE Stop: 12/14/19 17:32 Last Admin: 12/14/19 17:14 Dose: 1,000 mls/hr Ciprofloxacin/Dextrose 400 mg/ (Premix) 200 mls @ 200 mls/hr IV NOW STA Stop: 12/14/19 20:09 Last Admin: 12/14/19 21:18 Dose: 200 mls/hr Metronidazole 500 mg/ Premix 100 mls @ 100 mls/hr IV ONETIME ONE Stop: 12/14/19 20:09 Last Admin: 12/14/19 19:45 Dose: 100 mls/hr Lactated Ringer's (Ringers, Lactated) 1,000 mls @ 125 mls/hr IV ASDIRECTED [facility] Last Admin: 12/16/19 03:36 Dose: 125 mls/hr Ciprofloxacin/Dextrose 400 mg/ (Premix) 200 mls @ 200 mls/hr IV Q12H [facility] Last Admin: 12/15/19 08:36 Dose: 200 mls/hr Metronidazole 500 mg/ Premix 100 mls @ 100 mls/hr IV Q8H [facility] Last Admin: 12/14/19 23:39 Dose: Not Given Metronidazole 500 mg/ Premix 100 mls @ 100 mls/hr IV Q8H [facility] Last Admin: 12/15/19 03:55 Dose: 100 mls/hr Lactated Ringer's (Ringers, Lactated) 1,000 mls @ 999 mls/hr IV .BOLUS ONE Stop: 12/15/19 12:55 Last Admin: 12/15/19 12:55 Dose: 999 mls/hr Iopamidol (Isovue-370 (76%)) 100 ml IVPUSH ONETIME STA Stop: 12/14/19 20:18 Last Admin: 12/14/19 20:17 Dose: 100 ml Metoprolol Tartrate (Lopressor) 25 mg PO BID [facility] Last Admin: 12/15/19 10:18 Dose: 25 mg Morphine Sulfate (Morphine) 2 mg IVPUSH Q4H PRN PRN Reason: Pain (severe 7-10) Stop: 12/15/19 22:17 Last Admin: 12/14/19 23:48 Dose: 2 mg Ondansetron HCl (Zofran) 4 mg IVPUSH ONETIME ONE Stop: 12/14/19 16:34 Last Admin: 12/14/19 17:13 Dose: 4 mg Pantoprazole Sodium (Protonix Iv) 40 mg IV Q12HR [facility] Pantoprazole Sodium (Protonix Iv) 40 mg IV Q12HR [facility] Last Admin: 12/14/19 23:48 Dose: 40 mg Pravastatin Sodium (Pravachol) 40 mg PO BEDTIME [facility]
--- NOTE | 2019-12-16 09:54 | PCM.PN ---
- Patient Data Vitals - Most Recent: Last Vital Signs Temp 97.6 F 12/16/19 07:44 Pulse 70 12/16/19 07:44 Resp 16 12/16/19 07:44 BP 112/67 12/16/19 03:38 Pulse Ox 93 L 12/16/19 07:44 Weight - Most Recent: 110.79 kg I&O - Last 24 Hours: Intake & Output 12/15/19 12/16/19 12/16/19 22:59 06:59 14:59 Intake Total 3799 2967 Output Total 1400 1253 Balance 2399 1714 Lab Results Last 24 Hours: Laboratory Results - last 24 hr 12/15/19 12/16/19 12/16/19 Range/Units 05:25 06:03 06:03 WBC 9.23 (4.0-11.0) K/uL RBC 4.83 (4.50-5.90) M/uL Hgb 14.3 (13.0-17.0) g/dL Hct 46.0 (38.0-50.0) % MCV 95.2 (80.0-98.0) fL MCH 29.6 (27.0-32.0) pg MCHC 31.1 (31.0-37.0) g/dL RDW Std Deviation 49.8 (28.0-62.0) fl RDW Coeff of [place] 14 (11.0-15.0) % Plt Count 197 (150-400) K/uL MPV 10.20 (7.40-12.00) fL Neut % (Auto) 69.7 (48.0-80.0) % Lymph % (Auto) 16.7 (16.0-40.0) % [place] % (Auto) 11.6 (0.0-15.0) % Eos % (Auto) 1.7 (0.0-7.0) % Baso % (Auto) 0.3 (0.0-1.5) % Neut # (Auto) 6.4 H (1.4-5.7) K/uL Lymph # (Auto) 1.5 (0.6-2.4) K/uL [place] # (Auto) 1.1 H (0.0-0.8) K/uL Eos # (Auto) 0.2 (0.0-0.7) K/uL Baso # (Auto) 0.0 (0.0-0.1) K/uL Nucleated RBC % 0.0 /100WBC Nucleated RBCs # 0 K/uL Sodium 143 (136-148) mmol/L Potassium 4.4 (3.5-5.1) mmol/L Chloride 108 H (98-107) mmol/L Carbon Dioxide 29.7 (21.0-32.0) mmol/L BUN 13 (7.0-18.0) mg/dL Creatinine 1.1 (0.8-1.3) mg/dL Est Cr Clr Drug Dosing 65.57 mL/min Estimated GFR (MDRD) > 60.0 ml/min Glucose 106 (74-106) mg/dL Calcium 7.9 L (8.5-10.1) mg/dL Total Bilirubin 0.4 (0.2-1.0) mg/dL AST 15 (15-37) IU/L ALT 16 (14-63) IU/L Alkaline Phosphatase 84 (46-116) U/L Total Protein 5.8 L (6.4-8.2) g/dL Albumin 2.7 L (3.4-5.0) g/dL Globulin 3.1 (2.6-4.0) g/dL Albumin/Globulin Ratio 0.9 (0.9-1.6) Triglycerides 146 (0-200) mg/dL Cholesterol 149 (50-200) mg/dL LDL Cholesterol, Calc 86 (60-180) mg/dL VLDL Cholesterol 29 (5-55) mg/dL HDL Cholesterol 34 L (40-60) mg/dL Cholesterol/HDL Ratio 4.4 (3.3-6.0) Med Orders - Current: Current Medications Aspirin (Halfprin) 81 mg PO DAILY [facility] Last Admin: 12/16/19 08:25 Dose: 81 mg Gabapentin (Neurontin) 600 mg PO TID PRN PRN Reason: Pain Last Admin: 12/15/19 16:38 Dose: 600 mg Heparin Sodium (Porcine) (Heparin Sodium) 5,000 units SUBCUT Q8H [facility] Last Admin: 12/16/19 03:42 Dose: 5,000 units Pantoprazole Sodium 40 mg/ (Sodium Chloride) 10 mls @ 300 mls/hr IV Q12H [facility] Last Admin: 12/15/19 23:22 Dose: 300 mls/hr Ondansetron HCl (Zofran) 4 mg IVPUSH Q4H PRN PRN Reason: Nausea/Vomiting Last Admin: 12/14/19 23:58 Dose: 4 mg Pravastatin 20 Mg 1 each PO BEDTIME [facility] Last Admin: 12/15/19 20:13 Dose: Not Given Discontinued Medications Aspirin (Aspirin) 324 mg PO ONETIME ONE Stop: 12/14/19 21:00 Last Admin: 12/14/19 21:19 Dose: 324 mg Gabapentin (Neurontin) 300 mg PO TID [facility] Sodium Chloride (Normal Saline) 1,000 mls @ 1,000 mls/hr IV .Bolus ONE Stop: 12/14/19 17:32 Last Admin: 12/14/19 17:14 Dose: 1,000 mls/hr Ciprofloxacin/Dextrose 400 mg/ (Premix) 200 mls @ 200 mls/hr IV NOW STA Stop: 12/14/19 20:09 Last Admin: 12/14/19 21:18 Dose: 200 mls/hr Metronidazole 500 mg/ Premix 100 mls @ 100 mls/hr IV ONETIME ONE Stop: 12/14/19 20:09 Last Admin: 12/14/19 19:45 Dose: 100 mls/hr Lactated Ringer's (Ringers, Lactated) 1,000 mls @ 125 mls/hr IV ASDIRECTED [facility] Last Admin: 12/16/19 03:36 Dose: 125 mls/hr Ciprofloxacin/Dextrose 400 mg/ (Premix) 200 mls @ 200 mls/hr IV Q12H [facility] Last Admin: 12/15/19 08:36 Dose: 200 mls/hr Metronidazole 500 mg/ Premix 100 mls @ 100 mls/hr IV Q8H [facility] Last Admin: 12/14/19 23:39 Dose: Not Given Metronidazole 500 mg/ Premix 100 mls @ 100 mls/hr IV Q8H [facility] Last Admin: 12/15/19 03:55 Dose: 100 mls/hr Lactated Ringer's (Ringers, Lactated) 1,000 mls @ 999 mls/hr IV .BOLUS ONE Stop: 12/15/19 12:55 Last Admin: 12/15/19 12:55 Dose: 999 mls/hr Iopamidol (Isovue-370 (76%)) 100 ml IVPUSH ONETIME STA Stop: 12/14/19 20:18 Last Admin: 12/14/19 20:17 Dose: 100 ml Metoprolol Tartrate (Lopressor) 25 mg PO BID [facility] Last Admin: 12/15/19 10:18 Dose: 25 mg Morphine Sulfate (Morphine) 2 mg IVPUSH Q4H PRN PRN Reason: Pain (severe 7-10) Stop: 12/15/19 22:17 Last Admin: 12/14/19 23:48 Dose: 2 mg Ondansetron HCl (Zofran) 4 mg IVPUSH ONETIME ONE Stop: 12/14/19 16:34 Last Admin: 12/14/19 17:13 Dose: 4 mg Pantoprazole Sodium (Protonix Iv) 40 mg IV Q12HR [facility] Pantoprazole Sodium (Protonix Iv) 40 mg IV Q12HR [facility] Last Admin: 12/14/19 23:48 Dose: 40 mg Pravastatin Sodium (Pravachol) 40 mg PO BEDTIME [facility] Sepsis Event Note - Evaluation Sepsis Screening Result: No Definite Risk - Focused Exam Vital Signs: Vital Signs Temp Pulse Resp BP Pulse Ox 12/16/19 07:44 97.6 F 70 16 93 L 12/16/19 03:38 97.6 F 76 16 112/67 92 L 12/15/19 23:20 97.8 F 66 16 149/75 H 96 Date Exam was Performed: 12/16/19 Time Exam was Performed: 09:54 - Problem List & Annotations (1) Acute on chronic pancreatitis SNOMED Code(s): 195204970 Code(s): K85.90 - ACUTE PANCREATITIS WITHOUT NECROSIS OR INFECTION, UNSP; K86.1 - OTHER CHRONIC PANCREATITIS Status: Acute Current Visit: Yes (2) Chronic low back pain with bilateral sciatica SNOMED Code(s): 268303770 Code(s): M54.41 - LUMBAGO WITH SCIATICA, RIGHT SIDE; M54.42 - LUMBAGO WITH SCIATICA, LEFT SIDE; G89.29 - OTHER CHRONIC PAIN Status: Chronic Current Visit: No Qualifiers: Back pain laterality: bilateral Qualified Code(s): M54.42 - Lumbago with sciatica, left side; M54.41 - Lumbago with sciatica, right side; G89.29 - Other chronic pain (3) CAD (coronary artery disease) SNOMED Code(s): 13119106 Code(s): I25.10 - ATHSCL HEART DISEASE OF [place] CORONARY ARTERY W/O ANG PCTRS Status: Chronic Current Visit: No Qualifiers: Coronary Disease-Associated Artery/Lesion type: [place] artery [place] vs. transplanted heart: [place] heart Associated angina: without angina Qualified Code(s): I25.10 - Atherosclerotic heart disease of [place] coronary artery without angina pectoris (4) COPD (chronic obstructive pulmonary disease) SNOMED Code(s): 78883823 Code(s): J44.9 - CHRONIC OBSTRUCTIVE PULMONARY DISEASE, UNSPECIFIED Status : Chronic Current Visit: No Qualifiers: COPD type: unspecified COPD Qualified Code(s): J44.9 - Chronic obstructive pulmonary disease, unspecified (5) HTN (hypertension) SNOMED Code(s): 13971473 Code(s): I10 - ESSENTIAL (PRIMARY) HYPERTENSION Status: Chronic Current Visit: No Qualifiers: Hypertension type: essential hypertension Qualified Code(s): I10 - Essential (primary) hypertension (6) History of tobacco use SNOMED Code(s): 957551091 Code(s): Z87.891 - PERSONAL HISTORY OF NICOTINE DEPENDENCE Status: Chronic Current Visit: No (7) Hx of CABG SNOMED Code(s): 570990459, 896119731 Code(s): Z95.1 - PRESENCE OF AORTOCORONARY BYPASS GRAFT Status: Chronic Current Visit: No (8) PAD (peripheral artery disease) SNOMED Code(s): 375857982 Code(s): I73.9 - PERIPHERAL VASCULAR DISEASE, UNSPECIFIED Status: Chronic Current Visit: No (9) Substance abuse SNOMED Code(s): 63409280 Code(s): F19.10 - OTHER PSYCHOACTIVE SUBSTANCE ABUSE, UNCOMPLICATED Status : Chronic Current Visit: No (10) Tobacco abuse SNOMED Code(s): 072620924 Code(s): Z72.0 - TOBACCO USE Status: Chronic Priority: Medium Current Visit: No - My Orders Last 24 Hours: My Active Orders 12/15/19 11:52 Resuscitation Status Routine 12/15/19 12:00 Heparin Sodium 5,000 units SUBCUT Q8H 12/15/19 15:07 Gabapentin [Neurontin] 600 mg PO TID PRN 12/15/19 21:00 Patient's Own Medication [Ptom] 1 each PO BEDTIME 12/16/19 09:00 Aspirin [Halfprin] 81 mg PO DAILY 12/16/19 Breakfast Soft Diet [DIET] 12/17/19 05:11 CBC WITH AUTO DIFF [HEME] AM COMPREHENSIVE METABOLIC PN,CMP [CHEM] AM - Plan Plan:: This 74 year old male admitted with acute on chronic pancreatitis 1. Acute on Chronic pancreatitis: - Lipase elevated this am at 1510 - RUQ US revealed no gallstones. Fatty infiltration of the pancreas - Trial CL diet - Feeling improved today, wants to eat - Continue IVF for now, not aggressive due to CAD - Leukocytosis resolved, likely reactive to N/V and stress. Will stop abx. - Obtain Lipid panel 2. CAD/PVD/HTN/HLD - Start ASA, statin today. - Monitor BP. - Troponin elevated, trended to normal. No chest pain. Follow up with cardiology , likely secondary leak due to acute illness. - Confirming home medications with pharmacy as he is unaware completely of what he takes, fills at [facility]. Chronic leg pain: - Recommend PCP follow and PT VTE prophylaxis: Heparin Code status: Full Dispo: 1-2 days
[2019-12-16] MEDS: Pantoprazole 40 MG in Sodium Chloride 0.9% 10 ML IV SCH (11:26)
[2019-12-16 15:22] VITALS: BP 132/70; PULSE 82
== END 2019-12-16 12:10 | disposition home or self-care (01) ==
LOC: MW.ED 16:21 → MW.MS 22:00
PROVIDERS: ADMIT Student in an Organized Health Care Education/Training Program; ATTEND Student in an Organized Health Care Education/Training Program
DX: K85.90 Acute pancreatitis without necrosis or infection, unspecified (principal); K86.1 Other chronic pancreatitis; I10 Essential (primary) hypertension; J44.9 Chronic obstructive pulmonary disease, unspecified; E66.9 Obesity, unspecified; I73.9 Peripheral vascular disease, unspecified; E78.5 Hyperlipidemia, unspecified; M54.41 Lumbago with sciatica, right side; M54.42 Lumbago with sciatica, left side; M79.605 Pain in left leg; M79.604 Pain in right leg; G89.29 Other chronic pain; I25.10 Atherosclerotic heart disease of native coronary artery without angina pectoris; F19.10 Other psychoactive substance abuse, uncomplicated; Z95.1 Presence of aortocoronary bypass graft; Z88.1 Allergy status to other antibiotic agents; Z88.0 Allergy status to penicillin; Z79.82 Long term (current) use of aspirin; Z79.899 Other long term (current) drug therapy; Z87.891 Personal history of nicotine dependence; Z68.31 Body mass index [BMI] 31.0-31.9, adult
CPT/HCPCS: 36415; 71045; 74177; 76705; 80048; 80053; 80061; 80305; 81001; 83605; 83690; 83735; 84100; 84484; 85025; 93005; 96361; 96365; 96366; 96367; 96372; 96375; 96376; 99285; A9270; C9113; G0378; J0744; J1644; J2270; J2405; J3490; J7030; J7050; J7120; Q9967; 99284

== ENCOUNTER 2019-12-21 22:44 | Emergency (ER) | payer MEDICARE ==
[2019-12-21] MEDS ORDERED: Ondansetron 4 MG Tab.DIS PO ONE (23:08)
[2019-12-21] MEDS ORDERED: Metoclopramide Oral Soln 10 MG/10 ML UD Cup PO ONE (23:11)
--- NOTE | 2019-12-21 23:15 | EDM.PDOC ---
ED HPI GENERAL MEDICAL PROBLEM - General Chief Complaint: Gastrointestinal Problem Stated Complaint: VOMITTING Time Seen by Provider: 12/21/19 23:00 Source of Information: Reports: Patient - History of Present Illness INITIAL COMMENTS - FREE TEXT/NARRATIVE: The patient is a 74-year-old male with a history of coronary artery disease, CABG, COPD, peripheral vascular disease and hyperlipidemia as well as bilateral iliac stents who presents to the ER complaining of nausea and vomiting but no abdominal pain. The patient states that this is been ongoing intermittently for 4 months and this is his fourth time to the hospital for this. He states that no one is ever found out what is wrong. He states that he does not have any medications for vomiting at home. He has had been on Reglan in the past but he does not have it at the moment. Abdomen Pain Score (Numeric/FACES): 8 - Related Data Allergies Allergy/AdvReac Type Severity Reaction Status Date / Time Penicillins Allergy Severe Bronchospas Verified 12/21/19 22:56 ms levofloxacin [From Levaquin] Allergy Other Verified 12/21/19 22:56 Home Meds: Home Meds Gabapentin [Neurontin] 600 mg PO TID PRN 12/15/19 [History] Metoprolol Tartrate 25 mg PO BID 12/15/19 [History] Pravastatin [Pravachol] 20 mg PO DAILY 12/15/19 [History] lisinopriL [Lisinopril] 5 mg PO DAILY 12/15/19 [History] Metoclopramide HCl [Reglan] 10 mg PO Q6HR PRN 5 Days #20 tablet 12/21/19 [Rx] Past Medical History HEENT History: Reports: Impaired Vision Other HEENT History: has top and bottom dentures, wears glasses Cardiovascular History: Reports: Bypass, CAD, High Cholesterol, Hypertension, [place] Respiratory History: Reports: COPD Other Respiratory History: smokes 1 pk of cigarettes per day for over 50 yrs Gastrointestinal History: Reports: Hepatitis Other Gastrointestinal History: states he is on his last treatment for hepatitis C,h/o elevated LFT'S Genitourinary History: Reports: Prostate Disorder Musculoskeletal History: Reports: Back Pain, Chronic Other Musculoskeletal History: WILLA, chronic leg pain Neurological History: Reports: None Psychiatric History: Reports: Addiction, Other (See Below) Other Psychiatric History: hx ETOH abuse Endocrine/Metabolic History: Reports: Obesity/BMI 30+ Hematologic History: Reports: None Immunologic History: Reports: None Oncologic (Cancer) History: Reports: None Dermatologic History: Reports: None - Infectious Disease History Infectious Disease History: Reports: Chicken Pox, Hepatitis C, Measles, Mumps - Past Surgical History Head Surgeries/Procedures: Reports: None HEENT Surgical History: Reports: Naso-Sinus Surgery Cardiovascular Surgical History: Reports: Coronary Artery Bypass, Vascular Surgery Respiratory Surgical History: Reports: None GI Surgical History: Reports: Appendectomy Male Surgical History: Reports: TURP-Transurethral Resection of Prostate Endocrine Surgical History: Reports: None Neurological Surgical History: Reports: Laminectomy Musculoskeletal Surgical History: Reports: Other (See Below) Other Musculoskeletal Surgeries/Procedures:: left foot - 3 hammer toe repair Dermatological Surgical History: Reports: None Social & Family History - Family History Family Medical History: Noncontributory - Tobacco Use Smoking Status *Q: Former Smoker Used Tobacco, but Quit: Yes Month/Year Tobacco Last Used: 2018 - Caffeine Use Caffeine Use: Reports: Coffee - Recreational Drug Use Recreational Drug Use: Yes Drug Use in Last 12 Months: Yes Recreational Drug Type: Reports: Marijuana/Hashish, Methamphetamine Recreational Drug Use Frequency: Weekly - Living Situation & Occupation Living situation: Reports: with Significant Other ED ROS GENERAL - Review of Systems Review Of Systems: See Below (Positive for nausea and vomiting, negative abdominal pain, negative for chest pain, negative shortness of breath, negative for hematemesis, all other Positives and pertinent negatives as per HPI. All other pertinent systems were reviewed and are negative) ED EXAM, GI/ABD - Physical Exam Exam: See Below Text/Narrative:: Constitutional: No acute distress, Non-toxic appearance, elderly, disheveled, deconditioned HEENT.: Normocephalic, Atraumatic, PERRL, EOMI, External ears are atraumatic, Oropharynx clear and moist without lesions or masses, nares are patent without epistaxis Neck: Normal range of motion, Trachea Midline, No stridor Respiratory.: No respiratory distress, No tachypnea, Lungs Clear to Auscultation bilaterally without wheezes, rales, or rhonchi Cardiovascular.: Regular rate and Rhythm without murmurs, rubs, or gallops, good peripheral perfusion GI: Abdomen soft and non tender, mildly obese Genital Urinary: Deferred Musculoskeletal: Good range of motion. All 4 extremities present and atraumatic , no edema Back: Full Range of Motion Skin: Warm, Dry, Color is ethnicity appropriate, No acute rash. Lymphatic: No lymphadenopathy noted Neurological: Alert, Awake and oriented x 3, No focal deficits noted appreciate , GCS 15 Psych: Affect, Judgement, mood normal Course - Vital Signs Text/Narrative:: Given that this appears to be chronic problem, I reviewed some of the records in the past including the patient's previous discharge from this facility 5 days ago. The patient had a thorough work-up including an elevated troponin and the patient had been admitted to the hospital and then discharged. It was determined that they felt that the elevated troponin was not secondary to an acute cardiopulmonary event. Furthermore, talking with the patient he uses methamphetamines on a regular basis and even used methamphetamines the day of his discharge. While it is recognized that this patient has significant comorbidities in an elderly patient, given that this is a chronic problem that is been ongoing for quite some time and the patient is a regular methamphetamine user, I do not feel that he needs any type of acute emergency work-up at this time. He has been instructed to stop using drugs (he occasionally uses marijuana as well ) and I will provide him with a small prescription for Reglan but he needs to follow-up with his regular doctors. Last Recorded V/S: Last Vital Signs Temp 36.4 C 12/21/19 22:54 Pulse 94 12/21/19 22:54 Resp 19 12/21/19 22:54 BP 158/86 H 12/21/19 22:54 Pulse Ox 97 12/21/19 22:54 - Orders/Labs/Meds Orders: Active Orders 24 hr Category Date Time Status Ondansetron [Zofran ODT] Med 12/21/19 23:08 Once 4 mg PO ONETIME ONE Departure - Departure Time of Disposition: 23:17 Disposition: Home, Self-Care 01 Condition: Good Clinical Impression: Vomiting, Methamphetamine abuse - Discharge Information Referrals: PCP,None [Primary Care Provider] - Additional Instructions: Use the Reglan prescription as written but follow-up with your regular doctor for any further refills. Furthermore, especially with all of your medical conditions it is very important to not use drugs -especially methamphetamines. Return for any concerns. Sepsis Event Note - Evaluation Sepsis Screening Result: No Definite Risk - Focused Exam Vital Signs: Vital Signs Temp Pulse Resp BP Pulse Ox 12/21/19 22:54 36.4 C 94 19 158/86 H 97 Date Exam was Performed: 12/21/19 Time Exam was Performed: 23:09 - My Orders Last 24 Hours: My Active Orders 12/21/19 23:08 Ondansetron [Zofran ODT] 4 mg PO ONETIME ONE - Assessment/Plan Last 24 Hours: My Active Orders 12/21/19 23:08 Ondansetron [Zofran ODT] 4 mg PO ONETIME ONE
[2019-12-21 23:45] VITALS: BP 154/92; PULSE 77
== END 2019-12-21 23:45 | disposition home or self-care (01) ==
LOC: MW.ED 22:44
DX: R11.2 Nausea with vomiting, unspecified (principal); F15.10 Other stimulant abuse, uncomplicated; I25.10 Atherosclerotic heart disease of native coronary artery without angina pectoris; E78.5 Hyperlipidemia, unspecified; I10 Essential (primary) hypertension; I25.2 Old myocardial infarction; J44.9 Chronic obstructive pulmonary disease, unspecified; E66.9 Obesity, unspecified; Z68.32 Body mass index [BMI] 32.0-32.9, adult; F17.210 Nicotine dependence, cigarettes, uncomplicated; Z88.0 Allergy status to penicillin; Z88.1 Allergy status to other antibiotic agents
CPT/HCPCS: 99283; A9270; 99282

== ENCOUNTER 2020-05-04 13:23 | Emergency (ER) | payer MEDICARE ==
[2020-05-04] MEDS ORDERED: Sodium Chloride 0.9% 10 ML Syringe FLUSH PRN (13:40)
[2020-05-04] MEDS ORDERED: Sodium Chloride 0.9% 2.5 ML Syringe FLUSH PRN (13:40)
[2020-05-04 14:34] LABS: BLOOD UREA NITROGEN,BUN 16 mg/dL (7.0-18.0); CARBON DIOXIDE,CO2 26.1 mmol/L (21.0-32.0); CHLORIDE,CL 103 mmol/L (98-107); GLUCOSE RANDOM 99 mg/dL (74-106); LIPASE 105 U/L (73-393); POTASSIUM,K 4.3 mmol/L (3.5-5.1); SODIUM,NA 138 mmol/L (136-148)
--- NOTE | 2020-05-04 15:06 | CR ---
Chest: Portable view of the chest was obtained. Comparison: Prior chest x-ray of 12/14/19 is available. Areas of increased density are seen on both sides of the chest believed to be fairly stable from previous exam. Lungs otherwise are clear. Heart size is normal. Previous sternotomy is noted. Bony structures are grossly intact. Impression: 1. Parenchymal densities on both side of the chest believed to be stable from prior chest x-ray. 2. Nothing acute is otherwise seen on portable chest x-ray. Diagnostic code #2 This report was dictated in MDT
--- NOTE | 2020-05-04 15:50 | CT ---
CT abdomen and pelvis Technique: Multiple axial sections were obtained from above the dome of the diaphragm inferiorly through the pubic symphysis. Intravenous contrast was utilized. No oral contrast has been given. Findings: Visualized lung bases shows pleural calcifications. Nothing acute is appreciated. Liver contains no focal parenchymal abnormality. Spleen appears normal. Adrenal glands show no nodule. Pancreas shows no discrete abnormality. Kidneys show symmetric contrast enhancement without hydronephrosis. Small low-density lesion is noted within the left kidney which most likely represents a minimally complicated cyst. Kidneys are otherwise unremarkable. Aorta shows atherosclerotic calcification. Slight ectasia is seen with minimal aneurysmal dilatation of the distal aorta with AP dimension of 2.6 cm. Gallbladder contains no calcified gallstones. No retroperitoneal adenopathy or mesenteric abnormalities are seen. No pelvic mass or adenopathy is seen. Fat-containing right inguinal hernia is noted. No free fluid or inflammatory change is appreciated. Appendix not visualized with certainty. Bone window settings were reviewed which shows scattered degenerative change within the spine. Spondylitic defects are seen at L3-4. Impression: 1. Findings as noted above. 2. Nothing acute is appreciated. Diagnostic code #2 This report was dictated in MDT
--- NOTE | 2020-05-04 17:43 | EDM.PDOC ---
ED [facility] GENERAL MEDICAL PROBLEM - General Chief Complaint: Genitourinary Problem Stated Complaint: POSSIBLE KIDNEY STONE Time Seen by Provider: 05/04/20 13:28 Source of Information: Reports: Patient History Limitations: Reports: No Limitations - History of Present Illness INITIAL COMMENTS - FREE TEXT/NARRATIVE: HISTORY AND PHYSICAL: History of present illness: Patient is a 75-year-old male who presents to the ED today with concern of lower abdominal pain, abdominal fullness, and slight burning with urination x1 month. Patient states the pain is off-and-on and it does not always hurt when he goes to the bathroom but sometimes hurts. Patient states that he does feel like he sometimes is unable to empty his bladder completely. Patient states he has not seen anybody for his symptoms. Patient states that he does have a history of coronary artery bypass 2 years ago and COPD. Patient states he has not taken anything for his symptoms and denies any other symptoms or concerns. Patient denies fever, chills, chest pain, shortness of breath, or cough. Denies headache, neck stiff ness, change in vision, syncope, or near syncope. Denies nausea, vomiting, abdominal pain, diarrhea, constipation, or dysuria. Has not noted any blood in urine or stool. Patient has been eating and drinking appropriately. Review of systems: As per history of present illness and below otherwise all systems reviewed and negative. Past medical history: As per history of present illness and as reviewed below otherwise noncontributory. Surgical history: As per history of present illness and as reviewed below otherwise noncontributory. Social history: See social history for further information Family history: As per history of present illness and as reviewed below otherwise nonc ontributory. Physical exam: General: Patient is alert, oriented, and in no acute distress. Patient sitting comfortably on exam table. HEENT: Atraumatic, normocephalic, pupils equal and reactive bilaterally, negative for conjunctival pallor or scleral icterus, mucous membranes moist, TMs normal bilaterally, throat clear, neck supple, nontender, trachea midline. No drooling or trismus noted. No meningeal signs. No hot potato voice noted. Lungs: Clear to auscultation, breath sounds equal bilaterally, chest nontender. Heart: S1S2, regular rate and rhythm without overt murmur Abdomen: Soft, nondistended, nontender. Negative for masses or hepatosplenomegaly. Negative for costovertebral tenderness. Pelvis: Stable nontender. Genitourinary: Deferred. Rectal: Deferred. Skin: Intact, warm, dry. No lesions or rashes noted. Extremities: Atraumatic, negative for cords or calf pain. Neurovascular unremarkable. Neuro: Awake, alert, oriented. Cranial nerves II through XII unremarkable. Cerebellum unremarkable. Motor and sensory unremarkable throughout. Exam nonfocal. Notes: 250cc on bladder scan. Post void residual 22cc. Discussed importance for follow-up with a primary care provider. Voices understanding and is agreeable to plan of care. Denies any further questions or concerns at this time. Diagnostics: EKG, CBC, CMP, UA w culture, CXR, Trop, Abd/Pelvic ct w cont, bladder scan Therapeutics: None Prescription: None Impression: Abdominal pain Dysuria Plan: 1. You can alternate ibuprofen and Tylenol as directed for pain and discomfort. 2. Follow-up with your primary care provider as discussed. Return to the ED as needed and as discussed. Definitive disposition and diagnosis as appropriate pending reevaluation and review of above. bialteral lower abdomen Pain Score (Numeric/FACES): 7 - Related Data Allergies Allergy/AdvReac Type Severity Reaction Status Date / Time Penicillins Allergy Severe Bronchospas Verified 05/04/20 13:37 ms levofloxacin [From Levaquin] Allergy Other Verified 05/04/20 13:37 Home Meds: Home Meds Gabapentin [Neurontin] 600 mg PO TID PRN 12/15/19 [History] Metoprolol Tartrate 25 mg PO BID 12/15/19 [History] Pravastatin [Pravachol] 20 mg PO BEDTIME 12/15/19 [History] lisinopriL [Lisinopril] 5 mg PO DAILY 12/15/19 [History] Omeprazole 20 mg PO ACBREAKFAST 05/04/20 [History] Past Medical History HEENT History: Reports: Impaired Vision Other HEENT History: has top and bottom dentures, wears glasses Cardiovascular History: Reports: Bypass, CAD, High Cholesterol, Hypertension, [place] Respiratory History: Reports: COPD Other Respiratory History: smokes 1 pk of cigarettes per day for over 50 yrs Gastrointestinal History: Reports: Hepatitis Other Gastrointestinal History: states he is on his last treatment for hepatitis C,h/o elevated LFT'S Genitourinary History: Reports: Prostate Disorder Musculoskeletal History: Reports: Back Pain, Chronic Other Musculoskeletal History: WILLA, chronic leg pain Neurological History: Reports: None Psychiatric History: Reports: Addiction, Other (See Below) Other Psychiatric History: hx ETOH abuse Endocrine/Metabolic History: Reports: Obesity/BMI 30+ Hematologic History: Reports: None Immunologic History: Reports: None Oncologic (Cancer) History: Reports: None Dermatologic History: Reports: None - Infectious Disease History Infectious Disease History: Reports: Chicken Pox, Hepatitis C - Past Surgical History Head Surgeries/Procedures: Reports: None HEENT Surgical History: Reports: Naso-Sinus Surgery Cardiovascular Surgical History: Reports: Coronary Artery Bypass, Vascular Surgery Respiratory Surgical History: Reports: None GI Surgical History: Reports: Appendectomy Male Surgical History: Reports: TURP-Transurethral Resection of Prostate Endocrine Surgical History: Reports: None Neurological Surgical History: Reports: Laminectomy Musculoskeletal Surgical History: Reports: Other (See Below) Other Musculoskeletal Surgeries/Procedures:: left foot - 3 hammer toe repair Oncologic Surgical History: Reports: None Dermatological Surgical History: Reports: None Social & Family History - Family History Family Medical History: Noncontributory - Tobacco Use Smoking Status *Q: Former Smoker Used Tobacco, but Quit: Yes Month/Year Tobacco Last Used: 1.5 years - Caffeine Use Caffeine Use: Reports: None - Recreational Drug Use Recreational Drug Use: No - Living Situation & Occupation Living situation: Reports: with Significant Other ED ROS GENERAL - Review of Systems Review Of Systems: Comprehensive ROS is negative, except as noted in HPI. ED EXAM, GENERAL - Physical Exam Exam: See Below (see dictaiton) Course - Vital Signs Last Recorded V/S: Last Vital Signs Temp 98.0 F 05/04/20 17:31 Pulse 58 L 05/04/20 17:31 Resp 17 05/04/20 17:31 BP 101/61 05/04/20 17:31 Pulse Ox 96 05/04/20 17:31 - Orders/Labs/Meds Orders: Active Orders 24 hr Category Date Time Status Bladder Scan [RC] ASDIRECTED Care 05/04/20 14:52 Active Cardiac Monitoring [RC] . DIRECTED Care 05/04/20 13:51 Active EKG Documentation Completion [RC] STAT Care 05/04/20 13:41 Active Sodium Chloride 0.9% [Saline Flush] Med 05/04/20 13:40 Active 10 ml FLUSH ASDIRECTED PRN Sodium Chloride 0.9% [Saline Flush] Med 05/04/20 13:40 Active 2.5 ml FLUSH ASDIRECTED PRN Saline Lock Insert [OM.PC] Stat Oth 05/04/20 13:40 Ordered Medication Orders Sodium Chloride (Saline Flush) 10 ml FLUSH ASDIRECTED PRN PRN Reason: Keep Vein Open Last Admin: 05/04/20 14:01 Dose: 10 ml Documented by: AUGIE Sodium Chloride (Saline Flush) 2.5 ml FLUSH ASDIRECTED PRN PRN Reason: Keep Vein Open Last Admin: 05/04/20 14:01 Dose: 2.5 ml Documented by: AUGIE Labs: Laboratory Tests 05/04/20 05/04/20 05/04/20 Range/Units 14:00 14:00 14:00 WBC 11.60 H (4.0-11.0) K/uL RBC 5.28 (4.50-5.90) M/uL Hgb 16.2 (13.0-17.0) g/dL Hct 49.0 (38.0-50.0) % MCV 92.8 (80.0-98.0) fL MCH 30.7 (27.0-32.0) pg MCHC 33.1 (31.0-37.0) g/dL RDW Std Deviation 47.2 (28.0-62.0) fl RDW Coeff of [place] 14 (11.0-15.0) % Plt Count 203 (150-400) K/uL MPV 10.30 (7.40-12.00) fL Neut % (Auto) 67.7 (48.0-80.0) % Lymph % (Auto) 18.8 (16.0-40.0) % [place] % (Auto) 11.7 (0.0-15.0) % Eos % (Auto) 1.2 (0.0-7.0) % Baso % (Auto) 0.6 (0.0-1.5) % Neut # (Auto) 7.9 H (1.4-5.7) K/uL Lymph # (Auto) 2.2 (0.6-2.4) K/uL [place] # (Auto) 1.4 H (0.0-0.8) K/uL Eos # (Auto) 0.1 (0.0-0.7) K/uL Baso # (Auto) 0.1 (0.0-0.1) K/uL Nucleated RBC % 0.0 /100WBC Nucleated RBCs # 0 K/uL Sodium 138 (136-148) mmol/L Potassium 4.3 (3.5-5.1) mmol/L Chloride 103 (98-107) mmol/L Carbon Dioxide 26.1 (21.0-32.0) mmol/L BUN 16 (7.0-18.0) mg/dL Creatinine 1.0 (0.8-1.3) mg/dL Est Cr Clr Drug Dosing 68.98 mL/min Estimated GFR (MDRD) > 60.0 ml/min Glucose 99 (74-106) mg/dL Calcium 9.0 (8.5-10.1) mg/dL Total Bilirubin 0.3 (0.2-1.0) mg/dL AST 22 (15-37) IU/L ALT 18 (14-63) IU/L Alkaline Phosphatase 112 (46-116) U/L Troponin I < 0.050 (0.000-0.056) ng/mL Total Protein 7.5 (6.4-8.2) g/dL Albumin 3.6 (3.4-5.0) g/dL Globulin 3.9 (2.6-4.0) g/dL Albumin/Globulin Ratio 0.9 (0.9-1.6) Lipase 105 (73-393) U/L Urine Color Urine Appearance Urine pH (5.0-8.0) Ur Specific [place] (1.001-1.035) Urine Protein (NEGATIVE) mg/dL Urine Glucose (UA) (NEGATIVE) mg/dL Urine Ketones (NEGATIVE) mg/dL Urine Occult Blood (NEGATIVE) Urine Nitrite (NEGATIVE) Urine Bilirubin (NEGATIVE) Urine Urobilinogen (<2.0) EU/dL Ur Leukocyte Esterase (NEGATIVE) 05/04/20 Range/Units 15:46 WBC (4.0-11.0) K/uL RBC (4.50-5.90) M/uL Hgb (13.0-17.0) g/dL Hct (38.0-50.0) % MCV (80.0-98.0) fL MCH (27.0-32.0) pg MCHC (31.0-37.0) g/dL RDW Std Deviation (28.0-62.0) fl RDW Coeff of [place] (11.0-15.0) % Plt Count (150-400) K/uL MPV (7.40-12.00) fL Neut % (Auto) (48.0-80.0) % Lymph % (Auto) (16.0-40.0) % [place] % (Auto) (0.0-15.0) % Eos % (Auto) (0.0-7.0) % Baso % (Auto) (0.0-1.5) % Neut # (Auto) (1.4-5.7) K/uL Lymph # (Auto) (0.6-2.4) K/uL [place] # (Auto) (0.0-0.8) K/uL Eos # (Auto) (0.0-0.7) K/uL Baso # (Auto) (0.0-0.1) K/uL Nucleated RBC % /100WBC Nucleated RBCs # K/uL Sodium (136-148) mmol/L Potassium (3.5-5.1) mmol/L Chloride (98-107) mmol/L Carbon Dioxide (21.0-32.0) mmol/L BUN (7.0-18.0) mg/dL Creatinine (0.8-1.3) mg/dL Est Cr Clr Drug Dosing mL/min Estimated GFR (MDRD) ml/min Glucose (74-106) mg/dL Calcium (8.5-10.1) mg/dL Total Bilirubin (0.2-1.0) mg/dL AST (15-37) IU/L ALT (14-63) IU/L Alkaline Phosphatase (46-116) U/L Troponin I (0.000-0.056) ng/mL Total Protein (6.4-8.2) g/dL Albumin (3.4-5.0) g/dL Globulin (2.6-4.0) g/dL Albumin/Globulin Ratio (0.9-1.6) Lipase (73-393) U/L Urine Color YELLOW Urine Appearance CLEAR Urine pH 5.5 (5.0-8.0) Ur Specific [place] <= 1.005 (1.001-1.035) Urine Protein NEGATIVE (NEGATIVE) mg/dL Urine Glucose (UA) NEGATIVE (NEGATIVE) mg/dL Urine Ketones NEGATIVE (NEGATIVE) mg/dL Urine Occult Blood NEGATIVE (NEGATIVE) Urine Nitrite NEGATIVE (NEGATIVE) Urine Bilirubin NEGATIVE (NEGATIVE) Urine Urobilinogen 0.2 (<2.0) EU/dL Ur Leukocyte Esterase NEGATIVE (NEGATIVE) Meds: Medications Generic Name Dose Route Start Last Admin Trade Name Freq PRN Reason Stop Dose Admin Sodium Chloride 10 ml 05/04/20 13:40 05/04/20 14:01 Saline Flush FLUSH 10 ml ASDIRECTED PRN Administration Keep Vein Open Sodium Chloride 2.5 ml 05/04/20 13:40 05/04/20 14:01 Saline Flush FLUSH 2.5 ml ASDIRECTED PRN Administration Keep Vein Open Departure - Departure Time of Disposition: 18:58 Disposition: Home, Self-Care 01 Clinical Impression: Dysuria Abdominal pain Qualifiers: Abdominal location: unspecified location Qualified Code(s): R10.9 - Unspecified abdominal pain - Discharge Information Instructions: Abdominal Pain, Adult, [id number], Dysuria Referrals: Carol Burciaga [email or web address] DEVELOPER [Primary Care Provider] - Forms: ED Department Discharge Additional Instructions: The following information is given to patients seen in the emergency department who are being discharged to home. This information is to outline your options for follow-up care. We provide all patients seen in our emergency department with a follow-up referral. The need for follow-up, as well as the timing and circumstances, are variable depending upon the specifics of your emergency department visit. If you don't have a primary care physician on staff, we will provide you with a referral. We always advise you to contact your personal physician following an emergency department visit to inform them of the circumstance of the visit and for follow-up with them and/or the need for any referrals to a consulting specialist. The emergency department will also refer you to a specialist when appropriate. This referral assures that you have the opportunity for follow-up care with a specialist. All of these measure are taken in an effort to provide you with optimal care, which includes your follow-up. Under all circumstances we always encourage you to contact your private physician who remains a resource for coordinating your care. When calling for follow-up care, please make the office aware that this follow-up is from your recent emergency room visit. If for any reason you are refused follow-up, please contact the [facility] Emergency Department at and asked to speak to the emergency department charge nurse. [facility] [address] [place] [address] [facility] [address] [place] [address] 1. You can alternate ibuprofen and Tylenol as directed for pain and discomfort. 2. Follow-up with your primary care provider as discussed. Return to the ED as needed and as discussed. Sepsis Event Note (ED) - Evaluation Sepsis Screening Result: No Definite Risk - Focused Exam Vital Signs: Vital Signs Temp Pulse Resp BP Pulse Ox 05/04/20 17:31 98.0 F 58 L 17 101/61 96 05/04/20 13:33 96.3 F L 51 L 18 156/42 H 96 - My Orders Last 24 Hours: My Active Orders 05/04/20 13:40 Sodium Chloride 0.9% [Saline Flush] 10 ml FLUSH ASDIRECTED PRN Sodium Chloride 0.9% [Saline Flush] 2.5 ml FLUSH ASDIRECTED PRN Saline Lock Insert [OM.PC] Stat 05/04/20 13:41 EKG Documentation Completion [RC] STAT 05/04/20 13:51 Cardiac Monitoring [RC] . DIRECTED 05/04/20 14:52 Bladder Scan [RC] ASDIRECTED - Assessment/Plan Last 24 Hours: My Active Orders 05/04/20 13:40 Sodium Chloride 0.9% [Saline Flush] 10 ml FLUSH ASDIRECTED PRN Sodium Chloride 0.9% [Saline Flush] 2.5 ml FLUSH ASDIRECTED PRN Saline Lock Insert [OM.PC] Stat 05/04/20 13:41 EKG Documentation Completion [RC] STAT 05/04/20 13:51 Cardiac Monitoring [RC] . DIRECTED 05/04/20 14:52 Bladder Scan [RC] ASDIRECTED
[2020-05-04 19:18] VITALS: BP 142/73; PULSE 70
[2020-05-04] MEDS ORDERED: Iopamidol 755 Mg/ML 100 ML Bottle IVPUSH STA (19:27)
== END 2020-05-04 19:10 | disposition home or self-care (01) ==
LOC: MW.ED 13:23
DX: R10.30 Lower abdominal pain, unspecified (principal); R30.0 Dysuria; I25.10 Atherosclerotic heart disease of native coronary artery without angina pectoris; E78.00 Pure hypercholesterolemia, unspecified; I10 Essential (primary) hypertension; I25.2 Old myocardial infarction; J44.9 Chronic obstructive pulmonary disease, unspecified; E66.9 Obesity, unspecified; Z68.32 Body mass index [BMI] 32.0-32.9, adult; Z88.1 Allergy status to other antibiotic agents; Z88.0 Allergy status to penicillin; Z87.891 Personal history of nicotine dependence
CPT/HCPCS: 36415; 51798; 71045; 74177; 80053; 81003; 83690; 84484; 85025; 93005; 99284; Q9967; 99283

== ENCOUNTER 2020-06-09 16:04 | Emergency (ER) | payer MEDICARE ==
[2020-06-09] MEDS ORDERED: Sodium Chloride 0.9% 10 ML Syringe FLUSH PRN (16:24)
[2020-06-09] MEDS ORDERED: Sodium Chloride 0.9% 2.5 ML Syringe FLUSH PRN (16:24)
[2020-06-09] MEDS ORDERED: Sodium Chloride 0.9% 1,000 ML IV ONE (16:24)
[2020-06-09] MEDS ORDERED: Ondansetron 4 MG/2 ML SDV IVPUSH ONE (16:24)
[2020-06-09] MEDS ORDERED: Pantoprazole 40 MG in Sodium Chloride 0.9% 10 ML IV ONE (16:24)
[2020-06-09] MEDS ORDERED: Alum Hydrox/Mag Hydrox/Simeth 15 ML, Lidocaine 2% 5 ML PO ONE ×2 (16:28)
--- NOTE | 2020-06-09 16:32 | EDM.PDOC ---
ED HPI GENERAL MEDICAL PROBLEM - General Chief Complaint: Gastrointestinal Problem Stated Complaint: vomiting Time Seen by Provider: 06/09/20 16:12 Source of Information: Reports: Patient History Limitations: Reports: No Limitations - History of Present Illness INITIAL COMMENTS - FREE TEXT/NARRATIVE: PMHx chronic abdominal pain, COPD, PAD, CAD s/p cabg, HTN, substance abuse, me thamphetamine abuse, chronic pancreatitis, mesenteric ischemia, sciatica presents for abdominal pain occuring about 1-hr [employer] over diffuse abdomen "feels like gas pain" associated with nausea and 1x non-bloody emesis. Feels similar to prior episodes of "gas pain" per patient. He denies fevers, urinary symptoms, CP, SOB. Abdomen Pain Score (Numeric/FACES): 8 - Related Data Allergies Allergy/AdvReac Type Severity Reaction Status Date / Time Penicillins Allergy Severe Bronchospas Verified 06/09/20 16:13 ms levofloxacin [From Levaquin] Allergy Other Verified 06/09/20 16:13 Home Meds: Home Meds Gabapentin [Neurontin] 600 mg PO TID PRN 12/15/19 [History] Metoprolol Tartrate 25 mg PO BID 12/15/19 [History] Pravastatin [Pravachol] 20 mg PO BEDTIME 12/15/19 [History] lisinopriL [Lisinopril] 5 mg PO DAILY 12/15/19 [History] Omeprazole 20 mg PO ACBREAKFAST 05/04/20 [History] Ondansetron [Zofran ODT] 4 mg PO Q6H PRN #12 tab.dis 06/09/20 [Rx] Sulfamethoxazole/Trimethoprim [Bactrim Ds Tablet] 1 each PO BID #14 tablet 06/09/20 [Rx] metroNIDAZOLE [Flagyl] 500 mg PO BID #20 tablet 06/09/20 [Rx] Past Medical History HEENT History: Reports: Impaired Vision Other HEENT History: has top and bottom dentures, wears glasses Cardiovascular History: Reports: Bypass, CAD, High Cholesterol, Hypertension, SD Respiratory History: Reports: COPD Other Respiratory History: smokes 1 pk of cigarettes per day for over 50 yrs Gastrointestinal History: Reports: Hepatitis Other Gastrointestinal History: states he is on his last treatment for hepatitis C,h/o elevated LFT'S Genitourinary History: Reports: Prostate Disorder Musculoskeletal History: Reports: Back Pain, Chronic Other Musculoskeletal History: WILLA, chronic leg pain Neurological History: Reports: None Psychiatric History: Reports: Addiction, Other (See Below) Other Psychiatric History: hx ETOH abuse Endocrine/Metabolic History: Reports: Obesity/BMI 30+ Hematologic History: Reports: None Immunologic History: Reports: None Oncologic (Cancer) History: Reports: None Dermatologic History: Reports: None - Infectious Disease History Infectious Disease History: Reports: Chicken Pox, Measles, Mumps - Past Surgical History Head Surgeries/Procedures: Reports: None HEENT Surgical History: Reports: Naso-Sinus Surgery Cardiovascular Surgical History: Reports: Coronary Artery Bypass, Vascular Surgery Respiratory Surgical History: Reports: None GI Surgical History: Reports: Appendectomy Male Surgical History: Reports: TURP-Transurethral Resection of Prostate Endocrine Surgical History: Reports: None Neurological Surgical History: Reports: Laminectomy Musculoskeletal Surgical History: Reports: Other (See Below) Other Musculoskeletal Surgeries/Procedures:: left foot - 3 hammer toe repair Oncologic Surgical History: Reports: None Dermatological Surgical History: Reports: None Social & Family History - Family History Family Medical History: Noncontributory - Tobacco Use Smoking Status *Q: Never Smoker - Caffeine Use Caffeine Use: Reports: Coffee - Recreational Drug Use Recreational Drug Use: Yes Drug Use in Last 12 Months: Yes Recreational Drug Type: Reports: Marijuana/Hashish Recreational Drug Use Frequency: Weekly - Living Situation & Occupation Living situation: Reports: with Significant Other ED ROS GENERAL - Review of Systems Review Of Systems: Comprehensive ROS is negative, except as noted in HPI. ED EXAM, GI/ABD - Physical Exam Exam: See Below Exam Limited By: No Limitations General Appearance: Alert, WD/WN, No Apparent Distress Ears: Normal External Exam Nose: Normal Inspection Throat/Mouth: Normal Inspection, Normal Voice, No Airway Compromise Head: Atraumatic, Normocephalic Neck: Normal Inspection Respiratory/Chest: No Respiratory Distress, No Accessory Muscle Use, Wheezing Cardiovascular: Normal Peripheral Pulses, Regular Rate, Rhythm GI/Abdominal Exam: Soft, Distended, Other (RLQ TTP without guarding or rebound) Extremities: Normal Inspection Neurological: Alert Psychiatric: Normal Affect, Normal Mood Skin Exam: Warm, Dry, Intact, Normal Color EKG INTERPRETATION EKG Date: 06/09/20 Time: 16:41 Rhythm: NSR Rate (Beats/Min): 79 [place]: Normal P-Wave: Present QRS: Normal ST-T: Normal QT: Normal EKG Interpretation Comments: 2x PAC Course - Vital Signs Last Recorded V/S: Last Vital Signs Temp 96.2 F L 06/09/20 16:16 Pulse 82 06/09/20 18:47 Resp 15 06/09/20 18:47 BP 116/76 06/09/20 18:47 Pulse Ox 96 06/09/20 18:47 - Orders/Labs/Meds Orders: Active Orders 24 hr Category Date Time Status EKG Documentation Completion [RC] STAT Care 06/09/20 16:24 Active UA W/AVA RFLX IF INDICATED [URIN] Stat Lab 06/09/20 16:24 Ordered Sodium Chloride 0.9% [Saline Flush] Med 06/09/20 16:24 Active 10 ml FLUSH ASDIRECTED PRN Sodium Chloride 0.9% [Saline Flush] Med 06/09/20 16:24 Active 2.5 ml FLUSH ASDIRECTED PRN Saline Lock Insert [OM.PC] Stat Oth 06/09/20 16:24 Ordered Medication Orders Sodium Chloride (Saline Flush) 10 ml FLUSH ASDIRECTED PRN PRN Reason: Keep Vein Open Last Admin: 06/09/20 16:53 Dose: 10 ml Documented by: CAROLINA Sodium Chloride (Saline Flush) 2.5 ml FLUSH ASDIRECTED PRN PRN Reason: Keep Vein Open Last Admin: 06/09/20 16:53 Dose: 2.5 ml Documented by: CAROLINA Labs: Laboratory Tests 06/09/20 06/09/20 06/09/20 Range/Units 16:39 16:39 16:39 WBC 30.27 H (4.0-11.0) K/uL RBC 5.03 (4.50-5.90) M/uL Hgb 15.7 (13.0-17.0) g/dL Hct 48.1 (38.0-50.0) % MCV 95.6 (80.0-98.0) fL MCH 31.2 (27.0-32.0) pg MCHC 32.6 (31.0-37.0) g/dL RDW Std Deviation 49.8 (28.0-62.0) fl RDW Coeff of [place] 14 (11.0-15.0) % Plt Count 199 (150-400) K/uL MPV 10.10 (7.40-12.00) fL Add Manual Diff YES Neutrophils % (Manual) 88 H (48.0-80.0) % Lymphocytes % (Manual) 4 L (16.0-40.0) % Monocytes % (Manual) 8 (0.0-15.0) % Nucleated RBC % 0.0 /100WBC Absolute Seg Neuts 26.6 H (1.4-5.7) Lymphocytes # (Manual) 1.2 (0.6-2.4) Monocytes # (Manual) 2.4 H (0.0-0.8) Nucleated RBCs # 0 K/uL Lactate 1.4 (0.20-2.00) mmol/L Sodium 141 (136-148) mmol/L Potassium 4.3 (3.5-5.1) mmol/L Chloride 106 (98-107) mmol/L Carbon Dioxide 24.1 (21.0-32.0) mmol/L BUN 32 H (7.0-18.0) mg/dL Creatinine 1.4 H (0.8-1.3) mg/dL Est Cr Clr Drug Dosing 50.73 mL/min Estimated GFR (MDRD) 49.3 ml/min Glucose 110 H (74-106) mg/dL Calcium 9.3 (8.5-10.1) mg/dL Magnesium 2.1 (1.8-2.4) mg/dL Total Bilirubin 0.4 (0.2-1.0) mg/dL AST 37 (15-37) IU/L ALT 28 (14-63) IU/L Alkaline Phosphatase 134 H (46-116) U/L Troponin I < 0.050 (0.000-0.056) ng/mL Total Protein 7.8 (6.4-8.2) g/dL Albumin 3.9 (3.4-5.0) g/dL Globulin 3.9 (2.6-4.0) g/dL Albumin/Globulin Ratio 1.0 (0.9-1.6) Lipase 132 (73-393) U/L Meds: Medications Generic Name Dose Route Start Last Admin Trade Name Freq PRN Reason Stop Dose Admin Sodium Chloride 10 ml 06/09/20 16:24 06/09/20 16:53 Saline Flush FLUSH 10 ml ASDIRECTED PRN Administration Keep Vein Open Sodium Chloride 2.5 ml 06/09/20 16:24 06/09/20 16:53 Saline Flush FLUSH 2.5 ml ASDIRECTED PRN Administration Keep Vein Open Discontinued Medications Generic Name Dose Route Start Last Admin Trade Name Freq PRN Reason Stop Dose Admin Al Hydroxide/Mg Hydroxide 15 0 ml 06/09/20 16:28 06/09/20 16:52 ml/ Lidocaine HCl 5 ml PO 06/09/20 16:29 20 each ONETIME ONE Administration Sodium Chloride 1,000 mls @ 999 mls/hr 06/09/20 16:24 06/09/20 16:52 Normal Saline IV 06/09/20 17:24 999 mls/hr .Bolus ONE Administration Pantoprazole Sodium 40 mg/ 10 mls @ 300 mls/hr 06/09/20 16:24 06/09/20 16:52 Sodium Chloride IV 06/09/20 16:25 300 mls/hr NOW ONE Administration Iopamidol 100 ml 06/09/20 18:18 06/09/20 18:19 Isovue-370 (76%) IVPUSH 06/09/20 18:19 100 ml ONETIME STA Administration Ondansetron HCl 4 mg 06/09/20 16:24 06/09/20 16:52 Zofran IVPUSH 06/09/20 16:25 4 mg ONETIME ONE Administration - Re-Assessments/Exams Free Text/Narrative Re-Assessment/Exam: 06/09/20 16:33 Will get labs, imaging, treat symptomatically, reassess 06/09/20 18:50 CT unremarkable aside from diarrhea illness. Patient feels "100% better" and is tolerating PO. Elevated WBC likely reactive from vomiting. I will d/c with Abx for colitis and zofran for nausea. Patient understands medical condition and agrees to return to ED if not feeling better or any new or concerning symptoms at home. Departure - Departure Time of Disposition: 18:51 Disposition: Home, Self-Care 01 Condition: Good Clinical Impression: Gastroenteritis - Discharge Information Prescriptions: Sulfamethoxazole/Trimethoprim [Bactrim Ds Tablet] 1 each PO BID #14 tablet metroNIDAZOLE [Flagyl] 500 mg PO BID #20 tablet Ondansetron [Zofran ODT] 4 mg PO Q6H PRN #12 tab.dis PRN Reason: Vomiting Referrals: PCP,None [Primary Care Provider] - Forms: ED Department Discharge Additional Instructions: The following information is given to patients seen in the emergency department who are being discharged to home. This information is to outline your options for follow-up care. We provide all patients seen in our emergency department with a follow-up referral. The need for follow-up, as well as the timing and circumstances, are variable depending upon the specifics of your emergency department visit. If you don't have a primary care physician on staff, we will provide you with a referral. We always advise you to contact your personal physician following an emergency department visit to inform them of the circumstance of the visit and for follow-up with them and/or the need for any referrals to a consulting specialist. The emergency department will also refer you to a specialist when appropriate. This referral assures that you have the opportunity for follow-up care with a specialist. All of these measure are taken in an effort to provide you with optimal care, which includes your follow-up. Under all circumstances we always encourage you to contact your private physician who remains a resource for coordinating your care. When calling for follow-up care, please make the office aware that this follow-up is from your recent emergency room visit. If for any reason you are refused follow-up, please contact the [facility] Department at and asked to speak to the emergency department charge nurse. Please follow up with your primary care physician. If you do not have a primary care physician, see below: [facility] [address] [place] [id number] [facility] [address] [place] [id number] Sepsis Event Note (ED) - Evaluation Sepsis Screening Result: Possible Sepsis Risk - Focused Exam Vital Signs: Vital Signs Temp Pulse Resp BP Pulse Ox 06/09/20 18:47 82 15 116/76 96 06/09/20 18:10 86 15 119/77 97 06/09/20 17:26 89 18 109/67 96 06/09/20 16:16 96.2 F L 77 22 H 136/68 94 L - My Orders Last 24 Hours: My Active Orders 06/09/20 16:24 EKG Documentation Completion [RC] STAT UA W/AVA RFLX IF INDICATED [URIN] Stat Sodium Chloride 0.9% [Saline Flush] 10 ml FLUSH ASDIRECTED PRN Sodium Chloride 0.9% [Saline Flush] 2.5 ml FLUSH ASDIRECTED PRN Saline Lock Insert [OM.PC] Stat - Assessment/Plan Last 24 Hours: My Active Orders 06/09/20 16:24 EKG Documentation Completion [RC] STAT UA W/AVA RFLX IF INDICATED [URIN] Stat Sodium Chloride 0.9% [Saline Flush] 10 ml FLUSH ASDIRECTED PRN Sodium Chloride 0.9% [Saline Flush] 2.5 ml FLUSH ASDIRECTED PRN Saline Lock Insert [OM.PC] Stat
[2020-06-09 17:34] LABS: BLOOD UREA NITROGEN,BUN 32 mg/dL (7.0-18.0); CARBON DIOXIDE,CO2 24.1 mmol/L (21.0-32.0); CHLORIDE,CL 106 mmol/L (98-107); GLUCOSE RANDOM 110 mg/dL (74-106); LIPASE 132 U/L (73-393); POTASSIUM,K 4.3 mmol/L (3.5-5.1); SODIUM,NA 141 mmol/L (136-148)
[2020-06-09] MEDS ORDERED: Iopamidol 755 Mg/ML 100 ML Bottle IVPUSH STA (18:18)
--- NOTE | 2020-06-09 18:37 | CT ---
INDICATION: Abdominal pain TECHNIQUE: CT abdomen and pelvis acquired with 100 cc Isovue 370 IV contrast. COMPARISON: May 04, 2020 FINDINGS: Lower chest: Status post median sternotomy. Bilateral pleural calcifications. Liver: Unremarkable. Spleen: Unremarkable. Pancreas: Fatty infiltration of the pancreas. Punctate calcifications in the pancreas. Gallbladder and bile ducts: Unremarkable. Adrenal glands: Unremarkable. Kidneys: Unremarkable. GI tract: Fluid within otherwise normal appearing small bowel and colon. Appendix is not seen. Vascular structures: Status post aortobifemoral bypass. Infrarenal abdominal aorta measures 3.2 cm in diameter. Lymph nodes: Unremarkable. Miscellaneous: Moderate-sized fat containing right inguinal hernia. Small fat containing umbilical and supraumbilical ventral hernias. No free air or significant free fluid. Pelvic Organs: Enlarged prostate gland. Bones: Status post ORIF left hip. IMPRESSION: Fluid throughout the colon and small bowel consistent with diarrheal illness. No bowel wall thickening or fat stranding around the bowel. Bilateral pleural calcifications. This can be seen with asbestos related pleural disease. Stable infrarenal abdominal aortic aneurysm. Patient is status post aorta bi-iliac graft. Chronic pancreatitis. Moderate-sized fat containing right inguinal hernia. Small fat containing umbilical and supraumbilical ventral hernias. Enlarged prostate gland. Please note that all CT scans at this facility use dose modulation, iterative reconstruction, and/or weight-based dosing when appropriate to reduce radiation dose to as low as reasonably achievable. Dictated by Jessica Ellison MD @ Jun 09 2020 6:24PM Signed by Dr. Jessica Ellison @ Jun 09 2020 6:36PM
[2020-06-10 01:19] VITALS: BP 118/78; PULSE 84
== END 2020-06-09 19:28 | disposition home or self-care (01) ==
LOC: MW.ED 16:04
DX: K52.9 Noninfective gastroenteritis and colitis, unspecified (principal); I25.10 Atherosclerotic heart disease of native coronary artery without angina pectoris; E78.00 Pure hypercholesterolemia, unspecified; I10 Essential (primary) hypertension; I25.2 Old myocardial infarction; J44.9 Chronic obstructive pulmonary disease, unspecified; E66.9 Obesity, unspecified; Z68.31 Body mass index [BMI] 31.0-31.9, adult; Z88.1 Allergy status to other antibiotic agents; Z88.0 Allergy status to penicillin; Z79.899 Other long term (current) drug therapy; Z95.1 Presence of aortocoronary bypass graft
CPT/HCPCS: 36415; 74177; 80053; 81003; 83605; 83690; 83735; 84484; 85025; 93005; 96361; 96374; 96375; 99285; A9270; C9113; J2405; J7030; J7050; Q9967; 93010; 99283

== ENCOUNTER 2020-09-05 02:06 | Inpatient (IN) | payer MEDICARE, MEDICAID ==
[2020-09-05] MEDS ORDERED: Ketorolac 15 MG/ML SDV IVPUSH ONE (02:27)
--- NOTE | 2020-09-05 02:32 | EDM.PDOC ---
ED HPI GENERAL MEDICAL PROBLEM - General Chief Complaint: Back Pain or Injury Stated Complaint: BACK PAIN Time Seen by Provider: 09/05/20 02:07 Source of Information: Reports: Patient History Limitations: Reports: No Limitations - History of Present Illness INITIAL COMMENTS - FREE TEXT/NARRATIVE: Patient is a 75-year-old male who presents today for back pain. Patient suffered a back injury a few months ago as has some reoccurring lower back pain since that time. Patient states for the past few days the pain has been worse than normal which prompted him to come in tonight. Patient denies any new injuries. Patient denies any leg numbness or weakness urinary symptoms or saddle anesthesia. Patient also reports that his abdomen is more distended than normal and have caused him difficulty to take a deep breath. Patient denies any productive cough fever chills or nausea vomiting. Back Pain Score (Numeric/FACES): 8 - Related Data Allergies Allergy/AdvReac Type Severity Reaction Status Date / Time Penicillins Allergy Severe Bronchospas Verified 09/05/20 02:25 ms levofloxacin [From Levaquin] Allergy Other Verified 09/05/20 02:25 Home Meds: Home Meds Gabapentin [Neurontin] 600 mg PO TID PRN 12/15/19 [History] Metoprolol Tartrate 25 mg PO BID 12/15/19 [History] Pravastatin [Pravachol] 20 mg PO BEDTIME 12/15/19 [History] lisinopriL [Lisinopril] 5 mg PO DAILY 12/15/19 [History] Past Medical History HEENT History: Reports: Impaired Vision Other HEENT History: has top and bottom dentures, wears glasses Cardiovascular History: Reports: Bypass, CAD, High Cholesterol, Hypertension, [place] Respiratory History: Reports: COPD Other Respiratory History: smokes 1 pk of cigarettes per day for over 50 yrs Gastrointestinal History: Reports: Hepatitis Other Gastrointestinal History: states he is on his last treatment for hepatitis C,h/o elevated LFT'S Genitourinary History: Reports: Prostate Disorder Musculoskeletal History: Reports: Back Pain, Chronic Other Musculoskeletal History: WILLA, chronic leg pain Neurological History: Reports: None Psychiatric History: Reports: Addiction, Other (See Below) Other Psychiatric History: hx ETOH abuse Endocrine/Metabolic History: Reports: Obesity/BMI 30+ Hematologic History: Reports: None Immunologic History: Reports: None Oncologic (Cancer) History: Reports: None Dermatologic History: Reports: None - Infectious Disease History Infectious Disease History: Reports: Chicken Pox, Measles, Mumps - Past Surgical History Head Surgeries/Procedures: Reports: None HEENT Surgical History: Reports: Naso-Sinus Surgery Cardiovascular Surgical History: Reports: Coronary Artery Bypass, Vascular Surgery Respiratory Surgical History: Reports: None GI Surgical History: Reports: Appendectomy Male Surgical History: Reports: TURP-Transurethral Resection of Prostate Endocrine Surgical History: Reports: None Neurological Surgical History: Reports: Laminectomy Musculoskeletal Surgical History: Reports: Other (See Below) Other Musculoskeletal Surgeries/Procedures:: left foot - 3 hammer toe repair Oncologic Surgical History: Reports: None Dermatological Surgical History: Reports: None Social & Family History - Family History Family Medical History: No Pertinent Family History - Caffeine Use Caffeine Use: Reports: Coffee - Living Situation & Occupation Living situation: Reports: with Significant Other ED ROS GENERAL - Review of Systems Review Of Systems: See Below Constitutional: Reports: No Symptoms HEENT: Reports: No Symptoms Respiratory: Reports: Shortness of Breath Cardiovascular: Reports: No Symptoms Endocrine: Reports: No Symptoms GI/Abdominal: Reports: Distension : Reports: No Symptoms Musculoskeletal: Reports: No Symptoms Skin: Reports: No Symptoms Neurological: Reports: No Symptoms Psychiatric: Reports: No Symptoms Hematologic/Lymphatic: Reports: No Symptoms Immunologic: Reports: No Symptoms ED EXAM, GENERAL - Physical Exam Exam: See Below Exam Limited By: No Limitations General Appearance: Alert, WD/WN Respiratory/Chest: No Respiratory Distress, Lungs Clear, Normal Breath Sounds Cardiovascular: Normal Peripheral Pulses, Regular Rate, Rhythm GI/Abdominal: Normal Bowel Sounds, Soft, Non-Tender Extremities: Normal Inspection, Normal Range of Motion Neurological: Alert, Normal Cognition Course - Vital Signs Last Recorded V/S: Last Vital Signs Temp 97.1 F 09/05/20 02:21 Pulse 80 09/05/20 04:00 Resp 24 H 09/05/20 04:11 BP 106/52 L 09/05/20 04:57 Pulse Ox 95 09/05/20 04:11 - Orders/Labs/Meds Orders: Active Orders 24 hr Category Date Time Status Patient Status [ADT] Routine ADT 09/05/20 05:26 Ordered B-TYPE NATRIURETIC PEPTIDE,BNP [CHEM] Stat Lab 09/05/20 02:25 Received Azithromycin [Zithromax] 500 mg Med 09/05/20 05:30 Active Sodium Chloride 0.9% [Normal Saline (AdvBag)] 250 ml IV ONETIME Sodium Chloride 0.9% [Normal Saline] 500 ml Med 09/05/20 03:30 Active IV .BOLUS Medication Orders Sodium Chloride (Normal Saline) 500 mls @ 500 mls/hr IV .BOLUS BERYL Last Admin: 09/05/20 03:23 Dose: 500 mls/hr Documented by: REGINAOC Azithromycin 500 mg/ Sodium (Chloride) 250 mls @ 250 mls/hr IV ONETIME BERYL Labs: Laboratory Tests 09/05/20 09/05/20 09/05/20 Range/Units 02:25 02:25 02:25 WBC 11.53 H (4.0-11.0) K/uL RBC 5.44 (4.50-5.90) M/uL Hgb 17.0 (13.0-17.0) g/dL Hct 51.9 H (38.0-50.0) % MCV 95.4 (80.0-98.0) fL MCH 31.3 (27.0-32.0) pg MCHC 32.8 (31.0-37.0) g/dL RDW Std Deviation 49.4 (28.0-62.0) fl RDW Coeff of [place] 14 (11.0-15.0) % Plt Count 219 (150-400) K/uL MPV 11.10 (7.40-12.00) fL Neut % (Auto) 76.6 (48.0-80.0) % Lymph % (Auto) 11.4 L (16.0-40.0) % [place] % (Auto) 11.5 (0.0-15.0) % Eos % (Auto) 0.2 (0.0-7.0) % Baso % (Auto) 0.3 (0.0-1.5) % Neut # (Auto) 8.8 H (1.4-5.7) K/uL Lymph # (Auto) 1.3 (0.6-2.4) K/uL [place] # (Auto) 1.3 H (0.0-0.8) K/uL Eos # (Auto) 0.0 (0.0-0.7) K/uL Baso # (Auto) 0.0 (0.0-0.1) K/uL Nucleated RBC % 0.0 /100WBC Nucleated RBCs # 0 K/uL Lactate 2.5 H* (0.20-2.00) mmol/L Sodium 133 L (136-148) mmol/L Potassium 4.7 (3.5-5.1) mmol/L Chloride 98 (98-107) mmol/L Carbon Dioxide 25.6 (21.0-32.0) mmol/L BUN 20 H (7.0-18.0) mg/dL Creatinine 2.2 H (0.8-1.3) mg/dL Est Cr Clr Drug Dosing 32.28 mL/min Estimated GFR (MDRD) 29.2 ml/min Glucose 93 (74-106) mg/dL Calcium 9.1 (8.5-10.1) mg/dL Magnesium 1.8 (1.8-2.4) mg/dL Total Bilirubin 0.2 (0.2-1.0) mg/dL AST 20 (15-37) IU/L ALT 23 (14-63) IU/L Alkaline Phosphatase 121 H (46-116) U/L Troponin I < 0.050 (0.000-0.056) ng/mL Total Protein 7.6 (6.4-8.2) g/dL Albumin 3.6 (3.4-5.0) g/dL Globulin 4.0 (2.6-4.0) g/dL Albumin/Globulin Ratio 0.9 (0.9-1.6) Lipase 145 (73-393) U/L Influenza Type A RNA (NEGATIVE) Influenza Type B RNA (NEGATIVE) SARS-CoV-2 RNA (ETHAN) (NEGATIVE) 09/05/20 Range/Units 04:00 WBC (4.0-11.0) K/uL RBC (4.50-5.90) M/uL Hgb (13.0-17.0) g/dL Hct (38.0-50.0) % MCV (80.0-98.0) fL MCH (27.0-32.0) pg MCHC (31.0-37.0) g/dL RDW Std Deviation (28.0-62.0) fl RDW Coeff of [place] (11.0-15.0) % Plt Count (150-400) K/uL MPV (7.40-12.00) fL Neut % (Auto) (48.0-80.0) % Lymph % (Auto) (16.0-40.0) % [place] % (Auto) (0.0-15.0) % Eos % (Auto) (0.0-7.0) % Baso % (Auto) (0.0-1.5) % Neut # (Auto) (1.4-5.7) K/uL Lymph # (Auto) (0.6-2.4) K/uL [place] # (Auto) (0.0-0.8) K/uL Eos # (Auto) (0.0-0.7) K/uL Baso # (Auto) (0.0-0.1) K/uL Nucleated RBC % /100WBC Nucleated RBCs # K/uL Lactate (0.20-2.00) mmol/L Sodium (136-148) mmol/L Potassium (3.5-5.1) mmol/L Chloride (98-107) mmol/L Carbon Dioxide (21.0-32.0) mmol/L BUN (7.0-18.0) mg/dL Creatinine (0.8-1.3) mg/dL Est Cr Clr Drug Dosing mL/min Estimated GFR (MDRD) ml/min Glucose (74-106) mg/dL Calcium (8.5-10.1) mg/dL Magnesium (1.8-2.4) mg/dL Total Bilirubin (0.2-1.0) mg/dL AST (15-37) IU/L ALT (14-63) IU/L Alkaline Phosphatase (46-116) U/L Troponin I (0.000-0.056) ng/mL Total Protein (6.4-8.2) g/dL Albumin (3.4-5.0) g/dL Globulin (2.6-4.0) g/dL Albumin/Globulin Ratio (0.9-1.6) Lipase (73-393) U/L Influenza Type A RNA NEGATIVE (NEGATIVE) Influenza Type B RNA NEGATIVE (NEGATIVE) SARS-CoV-2 RNA (ETHAN) POSITIVE H (NEGATIVE) Meds: Medications Generic Name Dose Route Start Last Admin Trade Name Freq PRN Reason Stop Dose Admin Sodium Chloride 500 mls @ 500 mls/hr 09/05/20 03:30 09/05/20 03:23 Normal Saline IV 500 mls/hr .BOLUS BERYL Administration Azithromycin 500 mg/ Sodium 250 mls @ 250 mls/hr 09/05/20 05:30 Chloride IV ONETIME BERYL Discontinued Medications Generic Name Dose Route Start Last Admin Trade Name Zaria PRN Reason Stop Dose Admin Iopamidol 50 ml 09/05/20 04:10 09/05/20 04:10 Isovue-300 (61%) IVPUSH 09/05/20 04:11 50 ml ONETIME STA Administration Ketorolac Tromethamine 15 mg 09/05/20 02:27 09/05/20 02:35 Toradol IVPUSH 09/05/20 02:28 15 mg ONETIME ONE Administration - Re-Assessments/Exams Free Text/Narrative Re-Assessment/Exam: 09/05/20 05:28 Patient was found to be Covid positive. Patient has a small elevation in his white count as well as lactate. The point doing visit in ER patient had blood pressure dropped to 70s over 40s but was mentating fine. Patient was given 500 cc bolus and blood pressure improved. Patient oxygen levels been in the low 90s on room air and patient is tachypneic. Patient x-ray shows an infiltrate since he was given antibiotics. Patient CT of the abdomen pelvis showed no acute findings just chronic findings of his infrarenal aorta aneurysm. Be admitted for his PRAFUL hypertension and hypoxia. Departure - Departure Time of Disposition: 05:28 Disposition: Admitted As Inpatient 65 Condition: Good Clinical Impression: Hypotension - Discharge Information Referrals: Stella Wilhelm NP [Primary Care Provider] - Forms: ED Department Discharge Sepsis Event Note (ED) - Evaluation Sepsis Screening Result: No Definite Risk - Focused Exam Vital Signs: Vital Signs Temp Pulse Resp BP Pulse Ox 09/05/20 04:57 106/52 L 09/05/20 04:11 24 H 98/53 L 95 09/05/20 04:00 80 24 H 88/45 L 94 L 09/05/20 03:40 24 H 79/46 L 93 L 09/05/20 02:21 97.1 F 81 24 H 103/63 95 - My Orders Last 24 Hours: My Active Orders 09/05/20 02:25 B-TYPE NATRIURETIC PEPTIDE,BNP [CHEM] Stat 09/05/20 03:30 Sodium Chloride 0.9% [Normal Saline] 500 ml IV .BOLUS 09/05/20 05:26 Patient Status [ADT] Routine 09/05/20 05:30 Azithromycin [Zithromax] 500 mg Sodium Chloride 0.9% [Normal Saline (AdvBag)] 250 ml IV ONETIME - Assessment/Plan Last 24 Hours: My Active Orders 09/05/20 02:25 B-TYPE NATRIURETIC PEPTIDE,BNP [CHEM] Stat 09/05/20 03:30 Sodium Chloride 0.9% [Normal Saline] 500 ml IV .BOLUS 09/05/20 05:26 Patient Status [ADT] Routine 09/05/20 05:30 Azithromycin [Zithromax] 500 mg Sodium Chloride 0.9% [Normal Saline (AdvBag)] 250 ml IV ONETIME Assessment:: Patient is a 75-year-old male presents today for back pain he also has some abdominal distention causing him to be short of breath. Patient had a infrarenal aneurysm on previous CT scan that was done a few days ago. Will pain x-ray labs and provide pain control and reassess.
[2020-09-05 03:15] LABS: BLOOD UREA NITROGEN,BUN 20 mg/dL (7.0-18.0); CARBON DIOXIDE,CO2 25.6 mmol/L (21.0-32.0); CHLORIDE,CL 98 mmol/L (98-107); GLUCOSE RANDOM 93 mg/dL (74-106); LIPASE 145 U/L (73-393); POTASSIUM,K 4.7 mmol/L (3.5-5.1); SODIUM,NA 133 mmol/L (136-148)
[2020-09-05] MEDS ORDERED: Sodium Chloride 0.9% 500 ML IV SCH ×2 (03:30→05:45)
[2020-09-05] MEDS ORDERED: Iopamidol 612 MG/ML 100 ML Bottle IVPUSH STA (04:10)
[2020-09-05 04:47] LABS: CORONAVIRUS COVID-19 NAA POSITIVE (NEGATIVE); INFLUENZA A NAA NEGATIVE (NEGATIVE); INFLUENZA B NAA NEGATIVE (NEGATIVE)
--- NOTE | 2020-09-05 04:47 | CR ---
INDICATION: Shortness of breath and abdominal distention TECHNIQUE: Portable upright AP view of the chest COMPARISON: PA and lateral chest radiographs 06/22/2020 FINDINGS: There is irregular opacity projecting in the right suprahilar region. Irregular opacity also projects over the lateral left lung. There is no sizable pleural effusion or pneumothorax. The cardiomediastinal silhouette is stable. Sternotomy wires and mediastinal clips are noted, presumably related to prior CABG. There is no free air under the diaphragm. IMPRESSION: Bilateral focal irregular opacities, possibly representing infiltrates. Consider follow-up CT. Dictated by Iam Ruff MD @ Sep 05 2020 4:42AM Signed by Dr. Iam Ruff @ Sep 05 2020 4:45AM
--- NOTE | 2020-09-05 05:10 | CT ---
Indication: Abdominal distension Technique: Contrast enhanced axial CT imaging through the abdomen and pelvis. 50 mL Isovue 300 contrast agent was administered intravenously. Sagittal and coronal reconstructions are provided. Comparison: CT abdomen pelvis with contrast 08/09/2020 Findings: There is no significant abnormality of the liver, gallbladder, spleen, adrenal glands, and kidneys. A few prominent lymph nodes are noted at the bolivar hepatis, specific. There is moderately prominent atrophy of the pancreas. Scattered calcifications are noted in the pancreatic head. There is no pancreatic edema. The portal vein is patent. There is atherosclerosis of the abdominal aorta with stable infrarenal ectasia measuring up to 3.2 cm diameter. Patent aorta bi-iliac stent graft is noted. There is scattered atherosclerotic calcification in the superior mesenteric artery, similar to prior. The stomach and duodenum are unremarkable. There is no small bowel wall thickening or abnormal distention. The appendix is not visualized. There is no colonic wall thickening. There is no mesenteric edema or intraperitoneal free fluid. Small fat containing supraumbilical ventral hernias are similar to prior. Right fat containing inguinal hernia is also unchanged. Degenerative changes are noted in the lumbar spine. Laminectomy changes are present at L4-5 and L5-S1. left proximal femoral intramedullary fixation becca is noted. Impression: 1. No acute process demonstrated in the abdomen and pelvis. 2. Multiple stable chronic findings, as above. Please note that all CT scans at this facility use dose modulation, iterative reconstruction, and/or weight-based dosing when appropriate to reduce radiation dose to as low as reasonably achievable. Dictated by Iam Ruff MD @ Sep 05 2020 4:54AM Signed by Dr. Iam Ruff @ Sep 05 2020 5:08AM
[2020-09-05] MEDS ORDERED: Azithromycin 500 MG in Sodium Chloride 0.9% 250 ML IV SCH (05:30)
[2020-09-05] MEDS ORDERED: Azithromycin 500 MG in Sodium Chloride 0.9% 250 ML IV STA (05:55)
[2020-09-05] MEDS ORDERED: Acetaminophen 325 MG Tab PO PRN (07:36)
[2020-09-05] MEDS ORDERED: Enoxaparin 40 MG/0.4 ML Syringe SUBCUT SCH (07:45)
[2020-09-05] MEDS ORDERED: Lactated Ringers 1,000 ML IV SCH (07:45)
--- NOTE | 2020-09-05 08:14 | PCM.HP.2 ---
H&P History of Present Illness - General Date of Service: 09/05/20 Admit Problem/Dx: Admission Diagnosis/Problem Admission Diagnosis/Problem Hypotension Source of Information: Patient History Limitations: Reports: No Limitations - History of Present Illness Initial Comments - Free Text/Narative: This 75-year-old male with past medical history of COPD, PAD, CAD with CABG x3, lumbar decompression laminectomy, bilateral iliac artery stents and methamphetamine use presented to the ER today with complaints of acute on chronic back pain. He reports this pain has been present for over a year but has worsened the last 2 days. He reports he takes gabapentin at home for pain and as needed use methamphetamine for breakthrough pain. He reports he is not taking his gabapentin as prescribed, which is 600 mg 3 times daily. He reports that he takes upwards of 3 to 4 tablets at 1 time and then becomes very intoxicated like and has a very dry mouth. He reports he is also been having some diarrhea which has been there for 4 to 5 months. Reports he is eating and drinking okay. He denies any fevers chills, chest pain, or palpitations. He reports he has been having some mild shortness of breath and abdominal distention. He denies any trouble urinating. He denies any abdominal pain and no black or bloody bowel movements. He reports he quit smoking 1-1/2 years ago, no alcohol use, but does report frequent methamphetamine use as well as intermittent marijuana use. In the ER mild leukocytosis noted at 11,530, lactic acid elevated at 2.5 sodium 133 BUN and creatinine elevated slightly above baseline BUN 20 creatinine 2.2. AST ALT within normal limits alk phos slightly elevated at 121. CT abdomen pelvis was obtained which was negative. Chest x-ray did show bilateral irregular opacities. He was noted in the ER to have hypotension along with PRAFUL. Blood cultures were obtained along with treatment with azithromycin. He was also given 500 mill bolus which blood pressure did slowly improve. He will be admitted inpatient for sepsis secondary to possible CAP, Covid, PRAFUL. Back Pain Score (Numeric/FACES): 8 - Related Data Allergies/Adverse Reactions: Allergies Allergy/AdvReac Type Severity Reaction Status Date / Time Penicillins Allergy Severe Bronchospas Verified 09/05/20 02:25 ms levofloxacin [From Levaquin] Allergy Other Verified 09/05/20 02:25 Home Medications: Home Meds Gabapentin [Neurontin] 600 mg PO TID 12/15/19 [History] Metoprolol Tartrate 25 mg PO BID 12/15/19 [History] Pravastatin [Pravachol] 20 mg PO BEDTIME 12/15/19 [History] lisinopriL [Lisinopril] 5 mg PO DAILY 12/15/19 [History] Budesonide/Formoterol [Symbicort 160-4.5 MCG] 2 inh IH BID 09/05/20 [History] Omeprazole 20 mg PO DAILY 09/05/20 [History] Past Medical History HEENT History: Reports: Impaired Vision Other HEENT History: has top and bottom dentures, wears glasses Cardiovascular History: Reports: Bypass, CAD, High Cholesterol, Hypertension, CT, Stents (Iliac artery bilateral stents) Respiratory History: Reports: COPD, SOB Other Respiratory History: smokes 1 pk of cigarettes per day for over 50 yrs Gastrointestinal History: Reports: Hepatitis Other Gastrointestinal History: states he is on his last treatment for hepatitis C,h/o elevated LFT'S Genitourinary History: Reports: Prostate Disorder Musculoskeletal History: Reports: Back Pain, Chronic Other Musculoskeletal History: WILLA, chronic leg pain Neurological History: Reports: None Psychiatric History: Reports: Addiction, Other (See Below) Other Psychiatric History: hx ETOH abuse Endocrine/Metabolic History: Reports: Obesity/BMI 30+ Hematologic History: Reports: None Immunologic History: Reports: None Oncologic (Cancer) History: Reports: None Dermatologic History: Reports: None - Infectious Disease History Infectious Disease History: Reports: Chicken Pox, Measles, Mumps - Past Surgical History Head Surgeries/Procedures: Reports: None HEENT Surgical History: Reports: Naso-Sinus Surgery Cardiovascular Surgical History: Reports: Coronary Artery Bypass, Vascular Surgery Respiratory Surgical History: Reports: None GI Surgical History: Reports: Appendectomy Male Surgical History: Reports: TURP-Transurethral Resection of Prostate Endocrine Surgical History: Reports: None Neurological Surgical History: Reports: Laminectomy Musculoskeletal Surgical History: Reports: Other (See Below) Other Musculoskeletal Surgeries/Procedures:: left foot - 3 hammer toe repair Oncologic Surgical History: Reports: None Dermatological Surgical History: Reports: None Social & Family History - Family History Family Medical History: No Pertinent Family History - Tobacco Use Tobacco Use Status *Q: Former Tobacco User Used Tobacco, but Quit: Yes Month/Year Tobacco Last Used: 02/2019 Second Hand Smoke Exposure: Yes - Caffeine Use Caffeine Use: Reports: None - Recreational Drug Use Recreational Drug Use: Yes Recreational Drug Type: Reports: Marijuana/Hashish - Living Situation & Occupation Living situation: Reports: with Significant Other H&P Review of Systems - Review of Systems: Review Of Systems: See Below General: Reports: No Symptoms. Denies: Fever, Chills, Malaise, Weakness HEENT: Reports: No Symptoms. Denies: Headaches, Sinus Congestion, Vertigo Pulmonary: Reports: Shortness of Breath, Cough. Denies: Wheezing, Sputum, Hemoptysis Cardiovascular: Reports: No Symptoms. Denies: Chest Pain, Dyspnea on Exertion, Orthopnea, Edema, Syncope Gastrointestinal: Reports: Diarrhea. Denies: Abdominal Pain, Black Stool, Bloody Stool, Nausea, Vomiting Genitourinary: Reports: No Symptoms. Denies: Dysuria, Frequency, Burning Musculoskeletal: Reports: Back Pain (Denies any numbness or tingling bilaterally denies incontinence of urine or stool no saddle paresthesias) Skin: Reports: No Symptoms Psychiatric: Reports: No Symptoms Neurological: Reports: No Symptoms Hematologic/Lymphatic: Reports: No Symptoms Immunologic: Reports: No Symptoms Exam - Exam Exam: See Below - Vital Signs Vital Signs: Last Vital Signs Temp 97.1 F 09/05/20 02:21 Pulse 80 09/05/20 04:00 Resp 24 H 09/05/20 04:11 BP 103/58 L 09/05/20 06:34 Pulse Ox 95 09/05/20 04:11 Weight: 111.13 kg - Exam General: Alert, Oriented, Cooperative HEENT: Conjunctiva Clear, Mucosa Moist & [place], Posterior Pharynx Clear Neck: Supple, Trachea Midline Lungs: Clear to Auscultation, Normal Respiratory Effort, Other (Congested cough.) Cardiovascular: Regular Rate, Regular Rhythm, Normal S1, Normal S2 GI/Abdominal Exam: Normal Bowel Sounds, Soft, Non-Tender (Name) Extremities: Normal Inspection, Normal Range of Motion, Non-Tender, Pedal Edema (+1 non pitting edema bilaterally) Skin: Warm, Dry, Intact Neurological: Cranial Nerves Intact Neuro Extensive - Mental Status: Alert, Oriented x3, Normal Mood/Affect Neuro Extensive - Motor, Sensory, Reflexes: CN II-XII Intact Psychiatric: Alert, Normal Affect, Normal Mood - Patient Data Lab Results Last 24 hrs: Laboratory Results - last 24 hr 09/05/20 09/05/20 09/05/20 Range/Units 02:25 02:25 02:25 WBC 11.53 H (4.0-11.0) K/uL RBC 5.44 (4.50-5.90) M/uL Hgb 17.0 (13.0-17.0) g/dL Hct 51.9 H (38.0-50.0) % MCV 95.4 (80.0-98.0) fL MCH 31.3 (27.0-32.0) pg MCHC 32.8 (31.0-37.0) g/dL RDW Std Deviation 49.4 (28.0-62.0) fl RDW Coeff of [place] 14 (11.0-15.0) % Plt Count 219 (150-400) K/uL MPV 11.10 (7.40-12.00) fL Neut % (Auto) 76.6 (48.0-80.0) % Lymph % (Auto) 11.4 L (16.0-40.0) % Ware % (Auto) 11.5 (0.0-15.0) % Eos % (Auto) 0.2 (0.0-7.0) % Baso % (Auto) 0.3 (0.0-1.5) % Neut # (Auto) 8.8 H (1.4-5.7) K/uL Lymph # (Auto) 1.3 (0.6-2.4) K/uL Ware # (Auto) 1.3 H (0.0-0.8) K/uL Eos # (Auto) 0.0 (0.0-0.7) K/uL Baso # (Auto) 0.0 (0.0-0.1) K/uL Nucleated RBC % 0.0 /100WBC Nucleated RBCs # 0 K/uL Lactate 2.5 H* (0.20-2.00) mmol/L Sodium 133 L (136-148) mmol/L Potassium 4.7 (3.5-5.1) mmol/L Chloride 98 (98-107) mmol/L Carbon Dioxide 25.6 (21.0-32.0) mmol/L BUN 20 H (7.0-18.0) mg/dL Creatinine 2.2 H (0.8-1.3) mg/dL Est Cr Clr Drug Dosing 32.28 mL/min Estimated GFR (MDRD) 29.2 ml/min Glucose 93 (74-106) mg/dL Calcium 9.1 (8.5-10.1) mg/dL Magnesium 1.8 (1.8-2.4) mg/dL Total Bilirubin 0.2 (0.2-1.0) mg/dL AST 20 (15-37) IU/L ALT 23 (14-63) IU/L Alkaline Phosphatase 121 H (46-116) U/L Troponin I < 0.050 (0.000-0.056) ng/mL Total Protein 7.6 (6.4-8.2) g/dL Albumin 3.6 (3.4-5.0) g/dL Globulin 4.0 (2.6-4.0) g/dL Albumin/Globulin Ratio 0.9 (0.9-1.6) Lipase 145 (73-393) U/L Influenza Type A RNA (NEGATIVE) Influenza Type B RNA (NEGATIVE) SARS-CoV-2 RNA (ETHAN) (NEGATIVE) 09/05/20 Range/Units 04:00 WBC (4.0-11.0) K/uL RBC (4.50-5.90) M/uL Hgb (13.0-17.0) g/dL Hct (38.0-50.0) % MCV (80.0-98.0) fL MCH (27.0-32.0) pg MCHC (31.0-37.0) g/dL RDW Std Deviation (28.0-62.0) fl RDW Coeff of [place] (11.0-15.0) % Plt Count (150-400) K/uL MPV (7.40-12.00) fL Neut % (Auto) (48.0-80.0) % Lymph % (Auto) (16.0-40.0) % Ware % (Auto) (0.0-15.0) % Eos % (Auto) (0.0-7.0) % Baso % (Auto) (0.0-1.5) % Neut # (Auto) (1.4-5.7) K/uL Lymph # (Auto) (0.6-2.4) K/uL Ware # (Auto) (0.0-0.8) K/uL Eos # (Auto) (0.0-0.7) K/uL Baso # (Auto) (0.0-0.1) K/uL Nucleated RBC % /100WBC Nucleated RBCs # K/uL Lactate (0.20-2.00) mmol/L Sodium (136-148) mmol/L Potassium (3.5-5.1) mmol/L Chloride (98-107) mmol/L Carbon Dioxide (21.0-32.0) mmol/L BUN (7.0-18.0) mg/dL Creatinine (0.8-1.3) mg/dL Est Cr Clr Drug Dosing mL/min Estimated GFR (MDRD) ml/min Glucose (74-106) mg/dL Calcium (8.5-10.1) mg/dL Magnesium (1.8-2.4) mg/dL Total Bilirubin (0.2-1.0) mg/dL AST (15-37) IU/L ALT (14-63) IU/L Alkaline Phosphatase (46-116) U/L Troponin I (0.000-0.056) ng/mL Total Protein (6.4-8.2) g/dL Albumin (3.4-5.0) g/dL Globulin (2.6-4.0) g/dL Albumin/Globulin Ratio (0.9-1.6) Lipase (73-393) U/L Influenza Type A RNA NEGATIVE (NEGATIVE) Influenza Type B RNA NEGATIVE (NEGATIVE) SARS-CoV-2 RNA (ETHAN) POSITIVE H (NEGATIVE) Result Diagrams: 09/05/20 02:25 09/05/20 02:25 Sepsis Event Note - Evaluation Sepsis Screening Result: No Definite Risk Current Stage of Sepsis: Sepsis Possible Source of Sepsis: Pulmonary - Focused Exam Sepsis Event Note Statement: Focused Sepsis Exam Completed Vital Signs: Vital Signs Temp Pulse Resp BP Pulse Ox 09/05/20 06:34 103/58 L 09/05/20 04:57 106/52 L 09/05/20 04:11 24 H 98/53 L 95 09/05/20 04:00 80 24 H 88/45 L 94 L 09/05/20 03:40 24 H 79/46 L 93 L 09/05/20 02:21 97.1 F 81 24 H 103/63 95 Respiratory Effort Without Exertion: Other (see below) (Within normal limits) Pulse Description: 2+ Normal Peripheral Pulse Location: Radial Skin Exam (Focused Sepsis): Normal Turgor - Problem List (1) Sepsis SNOMED Code(s): 77184666 ICD Code: A41.9 - SEPSIS, UNSPECIFIED ORGANISM Status: Acute Current Visit: Yes (2) COVID-19 SNOMED Code(s): 090588661 ICD Code: U07.1 - COVID-19 Status: Acute Current Visit: Yes (3) CAP (community acquired pneumonia) SNOMED Code(s): 942071875 ICD Code: J18.9 - PNEUMONIA, UNSPECIFIED ORGANISM Status: Acute Current Visit: Yes (4) Methamphetamine abuse SNOMED Code(s): 321705217 ICD Code: F15.10 - OTHER STIMULANT ABUSE, UNCOMPLICATED Status: Acute Current Visit: No (5) CAD (coronary artery disease) SNOMED Code(s): 56840626 ICD Code: I25.10 - ATHSCL HEART DISEASE OF [place] CORONARY ARTERY W/O ANG PCT RS Status: Chronic Current Visit: No Qualifiers: Coronary Disease-Associated Artery/Lesion type: [place] artery [place] vs. transplanted heart: [place] heart Associated angina: without angina Qualified Code(s): I25.10 - Atherosclerotic heart disease of [place] coronary artery without angina pectoris (6) COPD (chronic obstructive pulmonary disease) SNOMED Code(s): 84783230 ICD Code: J44.9 - CHRONIC OBSTRUCTIVE PULMONARY DISEASE, UNSPECIFIED Status: Chronic Current Visit: No Qualifiers: COPD type: unspecified COPD Qualified Code(s): J44.9 - Chronic obstructive pulmonary disease, unspecified (7) Chronic low back pain with bilateral sciatica SNOMED Code(s): 315034175 ICD Code: M54.41 - LUMBAGO WITH SCIATICA, RIGHT SIDE; M54.42 - LUMBAGO WITH SCIATICA, LEFT SIDE; G89.29 - OTHER CHRONIC PAIN Status: Chronic Current Visit: No Qualifiers: Back pain laterality: bilateral Qualified Code(s): M54.42 - Lumbago with sciatica, left side; M54.41 - Lumbago with sciatica, right side; G89.29 - Other chronic pain (8) HTN (hypertension) SNOMED Code(s): 26049455 ICD Code: I10 - ESSENTIAL (PRIMARY) HYPERTENSION Status: Chronic Current Visit: No Qualifiers: Hypertension type: essential hypertension Qualified Code(s): I10 - Essential (primary) hypertension (9) History of tobacco use SNOMED Code(s): 347556411 ICD Code: Z87.891 - PERSONAL HISTORY OF NICOTINE DEPENDENCE Status: Chronic Current Visit: No (10) Hx of CABG SNOMED Code(s): 328877154, 083005783 ICD Code: Z95.1 - PRESENCE OF AORTOCORONARY BYPASS GRAFT Status: Chronic Current Visit: No (11) PAD (peripheral artery disease) SNOMED Code(s): 232537086 ICD Code: I73.9 - PERIPHERAL VASCULAR DISEASE, UNSPECIFIED Status: Chronic Current Visit: No (12) Substance abuse SNOMED Code(s): 88011830 ICD Code: F19.10 - OTHER PSYCHOACTIVE SUBSTANCE ABUSE, UNCOMPLICATED Status: Chronic Current Visit: No Problem List Initiated/Reviewed/Updated: Yes Orders Last 24hrs: Active Orders 24 hr Category Date Time Status Patient Status [ADT] Routine ADT 09/05/20 05:26 Active Ambulate [RC] ASDIRECTED Care 09/05/20 07:36 Active Antiembolic Devices [RC] PER UNIT ROUTINE Care 09/05/20 07:36 Active Incentive Spirometry [RT Incentive Spirometry] [RC] Care 09/05/20 07:39 Active Q2HWA Intake and Output [RC] QSHIFT Care 09/05/20 08:11 Ordered Oxygen Therapy [RC] PRN Care 09/05/20 07:36 Active Pulse Oximetry [RC] PRN Care 09/05/20 07:36 Active RT Post Treatment Assessment [RC] Click to Edit Care 09/05/20 08:12 Ordered RT Pre-Treatment Assessment [RC] Click to Edit Care 09/05/20 08:12 Ordered VTE/DVT Education [RC] PER UNIT ROUTINE Care 09/05/20 07:36 Active Vital Signs [RC] Q4H Care 09/05/20 07:36 Active Regular Diet [DIET] Diet 09/05/20 Breakfast Active B-TYPE NATRIURETIC PEPTIDE,BNP [CHEM] Stat Lab 09/05/20 02:25 Received CBC WITH AUTO DIFF [HEME] AM Lab 09/09/20 05:11 Ordered CBC WITH AUTO DIFF [HEME] AM Lab 09/10/20 05:11 Ordered CBC WITH AUTO DIFF [HEME] AM Lab 09/06/20 05:11 Ordered CBC WITH AUTO DIFF [HEME] AM Lab 09/07/20 05:11 Ordered CBC WITH AUTO DIFF [HEME] AM Lab 09/08/20 05:11 Ordered COMPREHENSIVE METABOLIC PN,CMP [CHEM] AM Lab 09/09/20 05:11 Ordered COMPREHENSIVE METABOLIC PN,CMP [CHEM] AM Lab 09/10/20 05:11 Ordered COMPREHENSIVE METABOLIC PN,CMP [CHEM] AM Lab 09/06/20 05:11 Ordered COMPREHENSIVE METABOLIC PN,CMP [CHEM] AM Lab 09/07/20 05:11 Ordered COMPREHENSIVE METABOLIC PN,CMP [CHEM] AM Lab 09/08/20 05:11 Ordered CULTURE BLOOD [BC] Stat Lab 09/05/20 07:41 Ordered CULTURE BLOOD [BC] Stat Lab 09/05/20 07:41 Ordered DRUG SCREEN, URINE [URCHEM] Urgent Lab 09/05/20 08:08 Ordered LACTATE WITH REFLEX [BG] Stat Lab 09/05/20 07:42 Ordered MAGNESIUM [CHEM] AM Lab 09/09/20 05:11 Ordered MAGNESIUM [CHEM] AM Lab 09/10/20 05:11 Ordered MAGNESIUM [CHEM] AM Lab 09/06/20 05:11 Ordered MAGNESIUM [CHEM] AM Lab 09/07/20 05:11 Ordered MAGNESIUM [CHEM] AM Lab 09/08/20 05:11 Ordered UA RFX AVA AND CULT IF INDIC [URIN] Urgent Lab 09/05/20 08:08 Ordered Acetaminophen [TylenoL] Med 09/05/20 07:36 Active 650 mg PO Q4H PRN Albuterol/Ipratropium [Combivent Respimat] Med 09/05/20 08:15 Ordered See Dose Instructions INH Q4H Azithromycin [Zithromax] Med 09/06/20 07:00 Ordered 500 mg PO Q24H Budesonide/Formoterol [Symbicort 160-4.5 MCG] Med 09/05/20 09:00 Ordered 2 inh INH BID Enoxaparin [Lovenox] Med 09/05/20 07:45 Active 40 mg SUBCUT Q12H Lactated Ringers [Ringers, Lactated] 1,000 ml Med 09/05/20 08:15 Ordered IV Q8H Omeprazole Med 09/05/20 09:00 Ordered 20 mg PO DAILY Pravastatin Med 09/05/20 21:00 Ordered 20 mg PO BEDTIME cefTRIAXone [Rocephin in Dextrose,Iso-Osm 1 GM/50 ML] 1 Med 09/05/20 08:15 Ordered gm Premix Bag 1 bag IV Q24H Blood Culture x2 Reflex Set [OM.PC] Stat Ot 09/05/20 07:41 Ordered Sequential Compression Device [OM.PC] Per Unit Routine Ot 09/05/20 07:36 Ordered Medication Orders Acetaminophen (Tylenol) 650 mg PO Q4H PRN PRN Reason: Pain (Mild 1-3)/fever Albuterol/Ipratropium (Combivent Respimat) 0 gm INH Q4H BERYL Azithromycin (Zithromax) 500 mg PO Q24H BERYL Budesonide/Formoterol Fumarate (Symbicort 160-4.5 Mcg) gm INH BID BERYL Enoxaparin Sodium (Lovenox) 40 mg SUBCUT Q12H BERYL Ceftriaxone Sodium/Dextrose 1 (gm/ Premix) 50 mls @ 100 mls/hr IV Q24H BERYL Lactated Ringer's (Ringers, Lactated) 1,000 mls @ 125 mls/hr IV Q8H BERYL Non-Formulary Medication (Pravastatin) 20 mg PO BEDTIME BERYL Omeprazole (Omeprazole) 20 mg PO DAILY BERYL Assessment/Plan Comment:: This 75-year-old male was admitted with chronic back pain, sepsis, COVID-19, possible CAP and PRAFUL 1. Sepsis secondary to COVID-19 and CAP -Currently not hypoxic, satting 96% on room air -We will hold off on starting dexamethasone as well as remdesivir. -Blood cultures obtained -UA negative -C. difficile negative further stool studies pending -Lactic acid elevated at 2.5, received 500 mill bolus in the ER. Repeat lactic acid 3.8. Was given 1 L LR and continued on maintenance fluids of LR at 125. We will recheck lactic acid this afternoon. -Patient is nontoxic. Blood pressure has improved no longer hypotensive. He is perfusing well and is alert and oriented. -Continue azithromycin and Rocephin for possible CAP -We will hold off on obtaining chest CT as patient is not requiring any oxygen. -Combivent every 4 hours scheduled -Encourage I-S and Acapella -Encouraged ambulation coughing and deep breathing -Lovenox twice daily 2. PRAFUL; -Mildly dehydrated with dry mucous membranes noted -Continue LR and recheck lab work in the morning. -Avoid nephrotoxic medications 3. Chronic back pain -Given Toradol in the ER reports this helped significantly and is no longer having significant pain. -We will have morphine 2 mg as needed available for pain -Restart home gabapentin 4. PAD, CAD, HTN -Hold antihypertensives at this time due to hypotension in the ER. -Monitor blood pressure and restart slowly -Continue statin therapy -Denies aspirin or blood thinner use. -We will start ASA 81 mg in the morning 5. COPD -Stable no significant wheezing -Continue Symbicort 6. Polysubstance abuse -Educated and counseled significantly on methamphetamine use and encouraged to discontinue this. -He verbalized understanding VTE prophylaxis Lovenox twice daily CODE STATUS: Full code Dispo; 2 days - Mortality Measure Prognosis:: Good
[2020-09-05] MEDS ORDERED: Lactated Ringers 1,000 ML IV ONE (09:52)
[2020-09-05] MEDS: Omeprazole 20 MG Cap.CR PO SCH (10:45)
[2020-09-05] MEDS ORDERED: Morphine 2 MG/ML SYRINGE IVPUSH PRN (11:14)
[2020-09-05] MEDS: Albuterol/Ipratropium 4 GM Inhalation Spray INH SCH ×6 (11:15→22:45)
[2020-09-05] MEDS: Budesonide/Formoterol 160-4.5 MCG/Puff 6 GM Inhaler INH SCH ×2 (11:16→20:53)
[2020-09-05] MEDS: cefTRIAXone 1 GM in Premix Bag 1 BAG IV SCH (11:55)
[2020-09-05] MEDS: Lactated Ringers 1,000 ML IV SCH ×3 (12:02→21:00)
[2020-09-05] MEDS: Gabapentin 300 MG Cap PO SCH ×3 (15:35→22:46)
[2020-09-05] MEDS: Pravastatin 40 MG Tab PO SCH (20:52)
[2020-09-05] MEDS: Enoxaparin 40 MG/0.4 ML Syringe SUBCUT SCH (22:40)
[2020-09-06] MEDS: Lactated Ringers 1,000 ML IV SCH ×3 (01:13→08:24)
[2020-09-06] MEDS: Albuterol/Ipratropium 4 GM Inhalation Spray INH SCH ×8 (01:13→21:03)
[2020-09-06] MEDS: Gabapentin 300 MG Cap PO SCH ×4 (04:50→21:02)
[2020-09-06] MEDS: Omeprazole 20 MG Cap.CR PO SCH ×2 (04:50→07:20)
[2020-09-06] MEDS: Azithromycin 250 MG Tab PO SCH ×2 (04:56→06:00)
[2020-09-06 06:49] LABS: CARBON DIOXIDE,CO2 23.6 mmol/L (21.0-32.0); POTASSIUM,K 4.4 mmol/L (3.5-5.1)
[2020-09-06] MEDS ORDERED: Magnesium Sulfate/Water 2 GM/50 ML BAG IV ONE (08:08)
[2020-09-06] MEDS: Budesonide/Formoterol 160-4.5 MCG/Puff 6 GM Inhaler INH SCH ×2 (08:25→21:02)
[2020-09-06] MEDS: cefTRIAXone 1 GM in Premix Bag 1 BAG IV SCH (08:25)
[2020-09-06] MEDS ORDERED: FLU Vacc QV2020-21(65YR UP)/PF 240 MCG/0.7 ML Syringe IM ONE (10:00)
[2020-09-06] MEDS: Enoxaparin 40 MG/0.4 ML Syringe SUBCUT SCH ×2 (10:03→21:02)
--- NOTE | 2020-09-06 12:53 | PCM.PN ---
- General Info Date of Service: 09/06/20 Admission Dx/Problem (Free Text): Admission Diagnosis/Problem Admission Diagnosis/Problem Hypotension Subjective Update: Continues to have allover joint pain and some back pain today. Back pain is near baseline joint pain is more than normal. Denies any shortness of breath or chest pain. Does have a cough intermittently. Has been up ambulating and using restroom. Eating and drinking well. Continues to not need oxygen therapy. Functional Status: Reports: Pain Controlled (Continue home gabapentin), Tolerating Diet, Ambulating, Urinating - Review of Systems General: Reports: Fatigue, Malaise (Generalized) HEENT: Reports: No Symptoms. Denies: Headaches, Visual Changes Pulmonary: Reports: Shortness of Breath (Intermittent), Cough. Denies: Sputum, Wheezing Cardiovascular: Reports: No Symptoms. Denies: Chest Pain, Palpitations, Dyspnea on Exertion Gastrointestinal: Reports: No Symptoms. Denies: Abdominal Pain, Nausea, Vomiting Genitourinary: Reports: No Symptoms. Denies: Dysuria, Frequency, Burning Musculoskeletal: Reports: Back Pain (Chronic), Joint Pain (Allover joint pain) Skin: Reports: No Symptoms Neurological: Reports: No Symptoms Psychiatric: Reports: No Symptoms - Patient Data Vitals - Most Recent: Last Vital Signs Temp 98.8 F 09/06/20 11:55 Pulse 89 09/06/20 11:55 Resp 17 09/06/20 11:55 BP 120/81 09/06/20 11:55 Pulse Ox 96 09/06/20 11:55 Weight - Most Recent: 112.264 kg I&O - Last 24 Hours: Intake & Output 09/05/20 09/06/20 09/06/20 22:59 06:59 14:59 Intake Total 940 2250 Output Total 1200 1550 Balance -260 700 Lab Results Last 24 Hours: Laboratory Results - last 24 hr 09/05/20 09/05/20 09/06/20 Range/Units 02:25 13:30 05:56 WBC 9.14 (4.0-11.0) K/uL RBC 4.93 (4.50-5.90) M/uL Hgb 15.3 (13.0-17.0) g/dL Hct 47.2 (38.0-50.0) % MCV 95.7 (80.0-98.0) fL MCH 31.0 (27.0-32.0) pg MCHC 32.4 (31.0-37.0) g/dL RDW Std Deviation 50.6 (28.0-62.0) fl RDW Coeff of [place] 14 (11.0-15.0) % Plt Count 165 (150-400) K/uL MPV 10.40 (7.40-12.00) fL Add Manual Diff YES Neutrophils % (Manual) 62 (48.0-80.0) % Band Neutrophils % 6 % Lymphocytes % (Manual) 14 L (16.0-40.0) % Monocytes % (Manual) 17 H (0.0-15.0) % Basophils % (Manual) 1 (0.0-1.5) % Nucleated RBC % 0.0 /100WBC Absolute Seg Neuts 5.7 (1.4-5.7) Band Neutrophils # 0.5 Lymphocytes # (Manual) 1.3 (0.6-2.4) Monocytes # (Manual) 1.6 H (0.0-0.8) Basophils # (Manual) 0.1 (0.0-0.1) Nucleated RBCs # 0 K/uL Lactate 1.3 (0.20-2.00) mmol/L Sodium (136-148) mmol/L Potassium (3.5-5.1) mmol/L Chloride (98-107) mmol/L Carbon Dioxide (21.0-32.0) mmol/L BUN (7.0-18.0) mg/dL Creatinine (0.8-1.3) mg/dL Est Cr Clr Drug Dosing mL/min Estimated GFR (MDRD) ml/min Glucose (74-106) mg/dL Calcium (8.5-10.1) mg/dL Magnesium (1.8-2.4) mg/dL Total Bilirubin (0.2-1.0) mg/dL AST (15-37) IU/L ALT (14-63) IU/L Alkaline Phosphatase (46-116) U/L B-Natriuretic Peptide 62 (<100) PG/ML Total Protein (6.4-8.2) g/dL Albumin (3.4-5.0) g/dL Globulin (2.6-4.0) g/dL Albumin/Globulin Ratio (0.9-1.6) 12/29/20 Range/Units 05:56 WBC (4.0-11.0) K/uL RBC (4.50-5.90) M/uL Hgb (13.0-17.0) g/dL Hct (38.0-50.0) % MCV (80.0-98.0) fL MCH (27.0-32.0) pg MCHC (31.0-37.0) g/dL RDW Std Deviation (28.0-62.0) fl RDW Coeff of [place] (11.0-15.0) % Plt Count (150-400) K/uL MPV (7.40-12.00) fL Add Manual Diff Neutrophils % (Manual) (48.0-80.0) % Band Neutrophils % % Lymphocytes % (Manual) (16.0-40.0) % Monocytes % (Manual) (0.0-15.0) % Basophils % (Manual) (0.0-1.5) % Nucleated RBC % /100WBC Absolute Seg Neuts (1.4-5.7) Band Neutrophils # Lymphocytes # (Manual) (0.6-2.4) Monocytes # (Manual) (0.0-0.8) Basophils # (Manual) (0.0-0.1) Nucleated RBCs # K/uL Lactate (0.20-2.00) mmol/L Sodium 132 L (136-148) mmol/L Potassium 4.4 (3.5-5.1) mmol/L Chloride 100 (98-107) mmol/L Carbon Dioxide 23.6 (21.0-32.0) mmol/L BUN 19 H (7.0-18.0) mg/dL Creatinine 1.4 H (0.8-1.3) mg/dL Est Cr Clr Drug Dosing 50.73 mL/min Estimated GFR (MDRD) 49.3 ml/min Glucose 117 H (74-106) mg/dL Calcium 8.3 L (8.5-10.1) mg/dL Magnesium 1.7 L (1.8-2.4) mg/dL Total Bilirubin 0.2 (0.2-1.0) mg/dL AST 28 (15-37) IU/L ALT 20 (14-63) IU/L Alkaline Phosphatase 93 (46-116) U/L B-Natriuretic Peptide (<100) PG/ML Total Protein 6.5 (6.4-8.2) g/dL Albumin 2.9 L (3.4-5.0) g/dL Globulin 3.6 (2.6-4.0) g/dL Albumin/Globulin Ratio 0.8 L (0.9-1.6) Zaheer Results Last 24 Hours: Microbiology 09/05/20 11:10 Shiga Toxin I & II - Final Stool / Feces 09/05/20 08:40 Aerobic Blood Culture - Preliminary Blood - Venous - Lab Draw NO GROWTH AFTER 1 DAY Anaerobic Blood Culture - Final 09/05/20 08:20 Aerobic Blood Culture - Preliminary Blood - Venous NO GROWTH AFTER 1 DAY Anaerobic Blood Culture - Final 09/05/20 11:10 C. difficile Antigen & Toxins A,B - Final Stool / Feces Med Orders - Current: Current Medications Acetaminophen (Tylenol) 650 mg PO Q4H PRN PRN Reason: Pain (Mild 1-3)/fever Albuterol/Ipratropium (Combivent Respimat) 0 gm INH Q4H [facility] Last Admin: 09/06/20 09:39 Dose: 1 inhalation Documented by: Azithromycin (Zithromax) 500 mg PO Q24H [facility] Last Admin: 09/06/20 06:00 Dose: Not Given Documented by: Enoxaparin Sodium (Lovenox) 40 mg SUBCUT Q12H [facility] Last Admin: 09/06/20 10:03 Dose: 40 mg Documented by: Gabapentin (Neurontin) 600 mg PO TID [facility] Last Admin: 09/06/20 05:34 Dose: Not Given Documented by: Ceftriaxone Sodium/Dextrose 1 (gm/ Premix) 50 mls @ 100 mls/hr IV Q24H [facility] Last Admin: 09/06/20 08:25 Dose: 100 mls/hr Documented by: Morphine Sulfate (Morphine) 2 mg IVPUSH Q4H PRN PRN Reason: Pain Omeprazole (Omeprazole) 20 mg PO ACBREAKFAST [facility] Last Admin: 09/06/20 07:20 Dose: Not Given Documented by: Budesonide/Formoterol 160-4.5 Mcg/Puff 6 Gm Inhaler 2 each INH BID [facility] Last Admin: 09/06/20 08:25 Dose: Not Given Documented by: Pravastatin Sodium (Pravachol) 20 mg PO BEDTIME [facility] Last Admin: 09/05/20 20:52 Dose: 20 mg Documented by: Discontinued Medications Albuterol/Ipratropium (Combivent Respimat) 0 gm INH Q4H [facility] Last Admin: 09/05/20 11:23 Dose: Not Given Documented by: Enoxaparin Sodium (Lovenox) 40 mg SUBCUT Q12H [facility] Last Admin: 09/05/20 10:47 Dose: 40 mg Documented by: Sodium Chloride (Normal Saline) 500 mls @ 500 mls/hr IV .BOLUS [facility] Last Admin: 09/05/20 03:23 Dose: 500 mls/hr Documented by: Azithromycin 500 mg/ Sodium (Chloride) 250 mls @ 250 mls/hr IV ONETIME BERYL Sodium Chloride (Normal Saline) 500 mls @ 500 mls/hr IV .BOLUS [facility] Azithromycin 500 mg/ Sodium (Chloride) 250 mls @ 250 mls/hr IV ONETIME STA Stop: 09/05/20 06:54 Last Admin: 09/05/20 05:56 Dose: 250 mls/hr Documented by: Lactated Ringer's (Ringers, Lactated) 1,000 mls @ 125 mls/hr IV 0745 [facility] Last Admin: 09/05/20 13:58 Dose: Not Given Documented by: Lactated Ringer's (Ringers, Lactated) 1,000 mls @ 125 mls/hr IV Q8H [facility] Last Admin: 09/06/20 08:24 Dose: Not Given Documented by: Lactated Ringer's (Ringers, Lactated) 1,000 mls @ 999 mls/hr IV .BOLUS ONE Stop: 09/05/20 10:52 Last Admin: 09/05/20 10:44 Dose: 999 mls/hr Documented by: Magnesium Sulfate (Magnesium Sulfate In Water Premix) 2 gm in 50 mls @ 50 mls/hr IV ONETIME ONE Stop: 09/06/20 09:07 Last Admin: 09/06/20 10:03 Dose: 50 mls/hr Documented by: Influenza Virus Vaccine (Pharmacy To Dose - Influenza Vaccine) 1 each IM ONETIME ONE Stop: 09/05/20 14:15 Last Admin: 09/05/20 18:35 Dose: Not Given Documented by: Influenza Virus Vaccine (Fluzone High-Dose Quad 2020-21) 240 mcg IM .ONCE ONE Stop: 09/06/20 10:01 Iopamidol (Isovue-300 (61%)) 50 ml IVPUSH ONETIME STA Stop: 09/05/20 04:11 Last Admin: 09/05/20 04:10 Dose: 50 ml Documented by: Ketorolac Tromethamine (Toradol) 15 mg IVPUSH ONETIME ONE Stop: 09/05/20 02:28 Last Admin: 09/05/20 02:35 Dose: 15 mg Documented by: - Exam Quality Assessment: DVT Prophylaxis. No: Supplemental Oxygen General: Alert, Oriented, Cooperative, No Acute Distress Lungs: Normal Respiratory Effort, Decreased Breath Sounds Cardiovascular: Regular Rate, Regular Rhythm, No Murmurs GI/Abdominal Exam: Normal Bowel Sounds, Soft, Non-Tender, Other (Obese abdomen limits exam) Back Exam: Normal Inspection, Full Range of Motion Extremities: Normal Inspection, Normal Range of Motion, Non-Tender, No Pedal Edema Neurological: No New Focal Deficit Psy/Mental Status: Alert, Normal Affect, Normal Mood Sepsis Event Note - Evaluation Sepsis Screening Result: No Definite Risk - Focused Exam Vital Signs: Vital Signs Temp Pulse Resp BP Pulse Ox 09/06/20 11:55 98.8 F 89 17 120/81 96 09/06/20 07:47 98.9 F 87 18 95/65 95 09/06/20 07:36 95 09/06/20 04:00 98.4 F 87 18 143/84 H 93 L - Problem List & Annotations (1) Sepsis SNOMED Code(s): 33950029 Code(s): A41.9 - SEPSIS, UNSPECIFIED ORGANISM Status: Resolved Current Visit: Yes (2) COVID-19 SNOMED Code(s): 185312619 Code(s): U07.1 - COVID-19 Status: Acute Current Visit: Yes (3) CAP (community acquired pneumonia) SNOMED Code(s): 108103992 Code(s): J18.9 - PNEUMONIA, UNSPECIFIED ORGANISM Status: Acute Current Visit: Yes (4) Methamphetamine abuse SNOMED Code(s): 626536608 Code(s): F15.10 - OTHER STIMULANT ABUSE, UNCOMPLICATED Status: Acute Current Visit: No (5) CAD (coronary artery disease) SNOMED Code(s): 47124784 Code(s): I25.10 - ATHSCL HEART DISEASE OF [place] CORONARY ARTERY W/O ANG PCTRS Status: Chronic Current Visit: No Qualifiers: Coronary Disease-Associated Artery/Lesion type: [place] artery [place] vs. transplanted heart: [place] heart Associated angina: without angina Qualified Code(s): I25.10 - Atherosclerotic heart disease of [place] coronary artery without angina pectoris (6) COPD (chronic obstructive pulmonary disease) SNOMED Code(s): 85346620 Code(s): J44.9 - CHRONIC OBSTRUCTIVE PULMONARY DISEASE, UNSPECIFIED Status: Chronic Current Visit: No Qualifiers: COPD type: unspecified COPD Qualified Code(s): J44.9 - Chronic obstructive pulmonary disease, unspecified (7) Chronic low back pain with bilateral sciatica SNOMED Code(s): 981985507 Code(s): M54.41 - LUMBAGO WITH SCIATICA, RIGHT SIDE; M54.42 - LUMBAGO WITH SCIATICA, LEFT SIDE; G89.29 - OTHER CHRONIC PAIN Status: Chronic Current Visit: No Qualifiers: Back pain laterality: bilateral Qualified Code(s): M54.42 - Lumbago with sciatica, left side; M54.41 - Lumbago with sciatica, right side; G89.29 - Other chronic pain (8) HTN (hypertension) SNOMED Code(s): 65230461 Code(s): I10 - ESSENTIAL (PRIMARY) HYPERTENSION Status: Chronic Current Visit: No Qualifiers: Hypertension type: essential hypertension Qualified Code(s): I10 - Essential (primary) hypertension (9) History of tobacco use SNOMED Code(s): 612815579 Code(s): Z87.891 - PERSONAL HISTORY OF NICOTINE DEPENDENCE Status: Chronic Current Visit: No (10) Hx of CABG SNOMED Code(s): 408421000, 191790291 Code(s): Z95.1 - PRESENCE OF AORTOCORONARY BYPASS GRAFT Status: Chronic Current Visit: No (11) PAD (peripheral artery disease) SNOMED Code(s): 525954510 Code(s): I73.9 - PERIPHERAL VASCULAR DISEASE, UNSPECIFIED Status: Chronic Current Visit: No (12) Substance abuse SNOMED Code(s): 70467246 Code(s): F19.10 - OTHER PSYCHOACTIVE SUBSTANCE ABUSE, UNCOMPLICATED Status: Chronic Current Visit: No - Problem List Review Problem List Initiated/Reviewed/Updated: Yes - My Orders Last 24 Hours: My Active Orders 09/05/20 14:00 Albuterol/Ipratropium [Combivent Respimat] 0 gm INH Q4H 09/05/20 14:08 Gabapentin [Neurontin] 600 mg PO TID 09/05/20 21:00 Pravastatin [Pravachol] 20 mg PO BEDTIME 09/06/20 07:00 Azithromycin [Zithromax] 500 mg PO Q24H 09/06/20 12:48 Senior [employer] Discontinue [Cardiac Monitoring Discontinue] [RC] Click to Edit 09/07/20 05:11 CBC WITH AUTO DIFF [HEME] AM COMPREHENSIVE METABOLIC PN,CMP [CHEM] AM MAGNESIUM [CHEM] AM 09/08/20 05:11 CBC WITH AUTO DIFF [HEME] AM COMPREHENSIVE METABOLIC PN,CMP [CHEM] AM MAGNESIUM [CHEM] AM 09/09/20 05:11 CBC WITH AUTO DIFF [HEME] AM COMPREHENSIVE METABOLIC PN,CMP [CHEM] AM MAGNESIUM [CHEM] AM 09/10/20 05:11 CBC WITH AUTO DIFF [HEME] AM COMPREHENSIVE METABOLIC PN,CMP [CHEM] AM MAGNESIUM [CHEM] AM - Plan Plan:: This 75-year-old male was admitted with chronic back pain, sepsis, COVID-19, possible CAP and PRAFUL 1. Sepsis secondary to COVID-19 and CAP -Sepsis resolved -Continues to not be hypoxic -Blood cultures negative x1 day -C. difficile negative, Shiga negative other stool studies continue pending -Lactic acid normalized yesterday -Hypotension improved -Continue azithromycin and Rocephin for possible CAP -Combivent every 4 hours scheduled -Encourage I-S and Acapella -Encouraged ambulation coughing and deep breathing -Lovenox twice daily 2. PRAFUL; -Improved today with IV fluid resuscitation -Back at baseline, will discontinue IV fluids monitor in a.m. -Avoid nephrotoxic medications 3. Chronic back pain -We will have morphine 2 mg as needed available for pain -Continue gabapentin 4. PAD, CAD, HTN -Continue to hold antihypertensives for now will monitor blood pressure -Monitor blood pressure and restart slowly -Continue statin therapy 5. COPD -Stable no significant wheezing -Continue Symbicort 6. Polysubstance abuse -Educated and counseled significantly on methamphetamine use and encouraged to discontinue this. -He verbalized understanding VTE prophylaxis Lovenox twice daily CODE STATUS: Full code Dispo; possible DC in morning
[2020-09-06] MEDS: Pravastatin 40 MG Tab PO SCH (20:56)
[2020-09-07] MEDS: Albuterol/Ipratropium 4 GM Inhalation Spray INH SCH ×3 (01:12→09:49)
[2020-09-07 05:54] LABS: CARBON DIOXIDE,CO2 26.6 mmol/L (21.0-32.0); POTASSIUM,K 4.6 mmol/L (3.5-5.1)
[2020-09-07] MEDS: Gabapentin 300 MG Cap PO SCH (06:33)
[2020-09-07] MEDS: Omeprazole 20 MG Cap.CR PO SCH (06:34)
[2020-09-07] MEDS: Azithromycin 250 MG Tab PO SCH (06:34)
[2020-09-07 07:40] VITALS: BP 123/60; PULSE 90
[2020-09-07] MEDS: cefTRIAXone 1 GM in Premix Bag 1 BAG IV SCH (08:04)
[2020-09-07] MEDS: Budesonide/Formoterol 160-4.5 MCG/Puff 6 GM Inhaler INH SCH (09:04)
[2020-09-07] MEDS: Enoxaparin 40 MG/0.4 ML Syringe SUBCUT SCH (10:42)
[2020-09-07] MEDS ORDERED: FLU VACC QS2020(65UP)/MF59C/PF 60 MCG/0.5 ML Syringe IM ONE (10:45)
--- NOTE | 2020-09-07 13:27 | PCM.DCSUM1 ---
Discharge Summary - Hospital Course Brief History: This 75-year-old male with past medical history of COPD, PAD, CAD with CABG x3, lumbar decompression laminectomy, bilateral iliac artery stents and methamphetamine use presented to the ER today with complaints of acute on chronic back pain. He reports this pain has been present for over a year but has worsened the last 2 days. He reports he takes gabapentin at home for pain and as needed use methamphetamine for breakthrough pain. He reports he is not taking his gabapentin as prescribed, which is 600 mg 3 times daily. He reports that he takes upwards of 3 to 4 tablets at 1 time and then becomes very intoxicated like and has a very dry mouth. He reports he is also been having some diarrhea which has been there for 4 to 5 months. Reports he is eating and drinking okay. He denies any fevers chills, chest pain, or palpitations. He reports he has been having some mild shortness of breath and abdominal distention. He denies any trouble urinating. He denies any abdominal pain and no black or bloody bowel movements. He reports he quit smoking 1-1/2 years ago, no alcohol use, but does report frequent methamphetamine use as well as intermittent marijuana use. In the ER mild leukocytosis noted at 11,530, lactic acid elevated at 2.5 sodium 133 BUN and creatinine elevated slightly above baseline BUN 20 creatinine 2.2. AST ALT within normal limits alk phos slightly elevated at 121. CT abdomen pelvis was obtained which was negative. Chest x- ray did show bilateral irregular opacities. He was noted in the ER to have hypotension along with PRAFUL. Blood cultures were obtained along with treatment with azithromycin. He was also given 500 mill bolus which blood pressure did slowly improve. He will be admitted inpatient for sepsis secondary to possible CAP, Covid, PRAFUL. Diagnosis: Stroke: No - Discharge Data Discharge Date: 09/07/20 Discharge Disposition: Home, Self-Care 01 Condition: Good - Referral to Home Health Primary Care Physician: Kalli Wilhelm NP - Discharge Diagnosis/Problem(s) (1) Sepsis SNOMED Code(s): 83929634 ICD Code: A41.9 - SEPSIS, UNSPECIFIED ORGANISM Status: Resolved (2) COVID-19 SNOMED Code(s): 969193360 ICD Code: U07.1 - COVID-19 Status: Acute (3) CAP (community acquired pneumonia) SNOMED Code(s): 324309659 ICD Code: J18.9 - PNEUMONIA, UNSPECIFIED ORGANISM Status: Acute (4) Methamphetamine abuse SNOMED Code(s): 378120645 ICD Code: F15.10 - OTHER STIMULANT ABUSE, UNCOMPLICATED Status: Acute (5) CAD (coronary artery disease) SNOMED Code(s): 59277318 ICD Code: I25.10 - ATHSCL HEART DISEASE OF [place] CORONARY ARTERY W/O ANG PCTRS Status: Chronic Qualifiers: Coronary Disease-Associated Artery/Lesion type: [place] artery [place] vs. transplanted heart: [place] heart Associated angina: without angina Qualified Code(s): I25.10 - Atherosclerotic heart disease of [place] coronary artery without angina pectoris (6) COPD (chronic obstructive pulmonary disease) SNOMED Code(s): 74544219 ICD Code: J44.9 - CHRONIC OBSTRUCTIVE PULMONARY DISEASE, UNSPECIFIED Status: Chronic Qualifiers: COPD type: unspecified COPD Qualified Code(s): J44.9 - Chronic obstructive pulmonary disease, unspecified (7) Chronic low back pain with bilateral sciatica SNOMED Code(s): 980319691 ICD Code: M54.41 - LUMBAGO WITH SCIATICA, RIGHT SIDE; M54.42 - LUMBAGO WITH SCIATICA, LEFT SIDE; G89.29 - OTHER CHRONIC PAIN Status: Chronic Qualifiers: Back pain laterality: bilateral Qualified Code(s): M54.42 - Lumbago with sciatica, left side; M54.41 - Lumbago with sciatica, right side; G89.29 - Other chronic pain (8) HTN (hypertension) SNOMED Code(s): 54908738 ICD Code: I10 - ESSENTIAL (PRIMARY) HYPERTENSION Status: Chronic Qualifiers: Hypertension type: essential hypertension Qualified Code(s): I10 - Essential (primary) hypertension (9) History of tobacco use SNOMED Code(s): 460545191 ICD Code: Z87.891 - PERSONAL HISTORY OF NICOTINE DEPENDENCE Status: Chronic (10) Hx of CABG SNOMED Code(s): 609006528, 764275379 ICD Code: Z95.1 - PRESENCE OF AORTOCORONARY BYPASS GRAFT Status: Chronic (11) PAD (peripheral artery disease) SNOMED Code(s): 525363840 ICD Code: I73.9 - PERIPHERAL VASCULAR DISEASE, UNSPECIFIED Status: Chronic (12) Substance abuse SNOMED Code(s): 13830844 ICD Code: F19.10 - OTHER PSYCHOACTIVE SUBSTANCE ABUSE, UNCOMPLICATED Status: Chronic - Patient Summary/Data Hospital Course: Admission diagnoses Sepsis Community-acquired pneumonia RPAFUL Hypotension COVID-19 Discharge diagnoses Sepsis resolved CAP PRAFUL resolved Hypotension resolved COVID-19 PMH Methamphetamine use Chronic back pain Narcotic abuse CAD Hypertension Lalit was admitted secondary to increased chronic back pain. He was noted to be Covid positive. He was also noted to have significant hypotension in the ER. Likely secondary to sepsis from CAP. He was treated with aggressive IV fluid resuscitation lactic acid improved. He was placed on Rocephin and azithromycin for community-acquired pneumonia found on chest x-ray. He was not hypoxic or tachycardic. Covid swab returned positive but patient again was not hypoxic and not requiring respiratory support. He was not started on remdesivir or dexamethasone. Lisinopril was held due to PRAFUL. After appropriate fluid resuscitation hypotension resolved as well as PRAFUL. He was continued on azithromycin and Rocephin for CAP. Today he is feeling much improved and requesting discharge home. Blood cultures have returned negative UA was negative. He was counseled heavily on methamphetamine use and how this can be detrimental to her health. He reports he uses this for as needed pain medication as he is previously in legal trouble due to narcotic abuse and sales. He was encouraged to continue gabapentin at home and take this appropriately as he reports he takes increased pills intermittently due to increased pain. He did also complain of diarrhea which has been going on for months. Stool cultures returned negative including C. difficile. Today he was discharged home counseled on quarantining. Which would be equal to 20 days due to hospitalization leaving him off of quarantine as of September 25, 2020. He was also counseled about wearing a facemask while in public or at large gatherings after his quarantine.. He will be discharged home today with prescriptions for cefdinir and as well as a azithromycin for CAP. He will continue these for 5 more days. He is to return to the ER with complaints of chest pain shortness of breath worsening fever chills or worsening pain. He is to follow-up with PCP in 7 to 10 days. Return to the ER or clinic sooner if concerns should arise. - Patient Instructions Diet: Heart Healthy Diet Activity: No Strenuous Activities, Rest and Relax Today Driving: Do Not Drive Showering/Bathing: May Shower Notify Provider of: Fever, Increased Pain, Swelling and Redness, Drainage, Nausea and/or Vomiting Other/Special Instructions: Quarantine for total of 20 days since diagnosis of COVID-19 last day of quarantine would be 09/25/2019. Continue to wear a mask if going out in public or in large gatherings once quarantine period is completed. Monitor blood pressure at home if blood pressure is 100 on the top number hold lisinopril for the day. Continue to refrain from methamphetamine use. - Discharge Plan *PRESCRIPTION DRUG MONITORING PROGRAM REVIEWED*: Not Applicable *COPY OF PRESCRIPTION DRUG MONITORING REPORT IN PATIENT JACY: Not Applicable Prescriptions/Med Rec: Cefdinir 300 mg PO BID #8 capsule Azithromycin [Zithromax] 500 mg PO Q24H #4 tablet Home Medications: Home Meds Gabapentin [Neurontin] 600 mg PO TID 12/15/19 [History] Metoprolol Tartrate 25 mg PO BID 12/15/19 [History] Pravastatin [Pravachol] 20 mg PO BEDTIME 12/15/19 [History] lisinopriL [Lisinopril] 5 mg PO DAILY 12/15/19 [History] Budesonide/Formoterol [Symbicort 160-4.5 MCG] 2 inh IH BID 09/05/20 [History] Omeprazole 20 mg PO DAILY 09/05/20 [History] Acetaminophen [Tylenol] 650 mg PO Q4H PRN tablet 09/07/20 [Rx] Albuterol/Ipratropium [Combivent Respimat] 0 gm INH Q4H inhaler 09/07/20 [Rx] Azithromycin [Zithromax] 500 mg PO Q24H #4 tablet 09/07/20 [Rx] Cefdinir 300 mg PO BID #8 capsule 09/07/20 [Rx] Patient Handouts: COVID-19 Frequently Asked Questions, COVID-19, Back Exercises, COVID-19: How to Protect Yourself and Others - CDC, Chronic Back Pain, [id number]-[id number], Coronavirus Information 11/23/19, Community-Acquired Pneumonia, Adult, Prevent the Spread of COVID-19 if You Are Sick - [facility] Referrals: Stella Wilhelm NP [Primary Care Provider] - 09/15/20 8:30 am - Discharge Summary/Plan Comment DC Time >30 min.: No - Patient Data Vitals - Most Recent: Last Vital Signs Temp 99.1 F 09/07/20 07:37 Pulse 90 09/07/20 07:37 Resp 19 09/07/20 07:37 BP 123/60 09/07/20 07:37 Pulse Ox 93 L 09/07/20 07:37 Weight - Most Recent: 112.264 kg I&O - Last 24 hours: Intake & Output 09/06/20 09/07/20 09/07/20 22:59 06:59 14:59 Intake Total 600 350 Output Total 1250 900 Balance -650 -550 Lab Results - Last 24 hrs: Laboratory Results - last 24 hr 09/07/20 09/07/20 Range/Units 05:17 05:17 WBC 8.39 (4.0-11.0) K/uL RBC 5.03 (4.50-5.90) M/uL Hgb 15.3 (13.0-17.0) g/dL Hct 47.7 (38.0-50.0) % MCV 94.8 (80.0-98.0) fL MCH 30.4 (27.0-32.0) pg MCHC 32.1 (31.0-37.0) g/dL RDW Std Deviation 49.6 (28.0-62.0) fl RDW Coeff of [place] 14 (11.0-15.0) % Plt Count 135 L (150-400) K/uL MPV 10.60 (7.40-12.00) fL Neut % (Auto) 71.7 (48.0-80.0) % Lymph % (Auto) 12.5 L (16.0-40.0) % [place] % (Auto) 15.7 H (0.0-15.0) % Eos % (Auto) 0.0 (0.0-7.0) % Baso % (Auto) 0.1 (0.0-1.5) % Neut # (Auto) 6.0 H (1.4-5.7) K/uL Lymph # (Auto) 1.1 (0.6-2.4) K/uL [place] # (Auto) 1.3 H (0.0-0.8) K/uL Eos # (Auto) 0.0 (0.0-0.7) K/uL Baso # (Auto) 0.0 (0.0-0.1) K/uL Nucleated RBC % 0.0 /100WBC Nucleated RBCs # 0 K/uL Sodium 132 L (136-148) mmol/L Potassium 4.6 (3.5-5.1) mmol/L Chloride 97 L (98-107) mmol/L Carbon Dioxide 26.6 (21.0-32.0) mmol/L BUN 14 (7.0-18.0) mg/dL Creatinine 1.3 (0.8-1.3) mg/dL Est Cr Clr Drug Dosing 54.63 mL/min Estimated GFR (MDRD) 53.7 ml/min Glucose 109 H (74-106) mg/dL Calcium 8.5 (8.5-10.1) mg/dL Magnesium 1.9 (1.8-2.4) mg/dL Total Bilirubin 0.2 (0.2-1.0) mg/dL AST 24 (15-37) IU/L ALT 18 (14-63) IU/L Alkaline Phosphatase 83 (46-116) U/L Total Protein 6.8 (6.4-8.2) g/dL Albumin 3.1 L (3.4-5.0) g/dL Globulin 3.7 (2.6-4.0) g/dL Albumin/Globulin Ratio 0.8 L (0.9-1.6) AVA Results - Last 24 hrs: Microbiology 09/05/20 11:10 Stool Culture - Preliminary Stool / Feces Shiga Toxin I & II - Final 09/05/20 08:40 Aerobic Blood Culture - Preliminary Blood - Venous - Lab Draw NO GROWTH AFTER 2 DAYS Anaerobic Blood Culture - Final 09/05/20 08:20 Aerobic Blood Culture - Preliminary Blood - Venous NO GROWTH AFTER 2 DAYS Anaerobic Blood Culture - Final Med Orders - Current: Current Medications Discontinued Medications Acetaminophen (Tylenol) 650 mg PO Q4H PRN PRN Reason: Pain (Mild 1-3)/fever Last Admin: 09/07/20 10:40 Dose: 650 mg Documented by: Albuterol/Ipratropium (Combivent Respimat) 0 gm INH Q4H BERYL Last Admin: 09/05/20 11:23 Dose: Not Given Documented by: Albuterol/Ipratropium (Combivent Respimat) 0 gm INH Q4H [facility] Last Admin: 09/07/20 09:49 Dose: 1 inhalation Documented by: Azithromycin (Zithromax) 500 mg PO Q24H [facility] Last Admin: 09/07/20 06:34 Dose: 500 mg Documented by: Enoxaparin Sodium (Lovenox) 40 mg SUBCUT Q12H [facility] Last Admin: 09/05/20 10:47 Dose: 40 mg Documented by: Enoxaparin Sodium (Lovenox) 40 mg SUBCUT Q12H [facility] Last Admin: 09/07/20 10:42 Dose: Not Given Documented by: Gabapentin (Neurontin) 600 mg PO TID [facility] Last Admin: 09/07/20 06:33 Dose: 600 mg Documented by: Sodium Chloride (Normal Saline) 500 mls @ 500 mls/hr IV .BOLUS [facility] Last Admin: 09/05/20 03:23 Dose: 500 mls/hr Documented by: Azithromycin 500 mg/ Sodium (Chloride) 250 mls @ 250 mls/hr IV ONETIME BERYL Sodium Chloride (Normal Saline) 500 mls @ 500 mls/hr IV .BOLUS [facility] Azithromycin 500 mg/ Sodium (Chloride) 250 mls @ 250 mls/hr IV ONETIME STA Stop: 09/05/20 06:54 Last Admin: 09/05/20 05:56 Dose: 250 mls/hr Documented by: Lactated Ringer's (Ringers, Lactated) 1,000 mls @ 125 mls/hr IV 0745 [facility] Last Admin: 09/05/20 13:58 Dose: Not Given Documented by: Ceftriaxone Sodium/Dextrose 1 (gm/ Premix) 50 mls @ 100 mls/hr IV Q24H [facility] Last Admin: 09/07/20 08:04 Dose: 100 mls/hr Documented by: Lactated Ringer's (Ringers, Lactated) 1,000 mls @ 125 mls/hr IV Q8H [facility] Last Admin: 09/06/20 08:24 Dose: Not Given Documented by: Lactated Ringer's (Ringers, Lactated) 1,000 mls @ 999 mls/hr IV .BOLUS ONE Stop: 09/05/20 10:52 Last Admin: 09/05/20 10:44 Dose: 999 mls/hr Documented by: Magnesium Sulfate (Magnesium Sulfate In Water Premix) 2 gm in 50 mls @ 50 mls/hr IV ONETIME ONE Stop: 09/06/20 09:07 Last Admin: 09/06/20 10:03 Dose: 50 mls/hr Documented by: Influenza Virus Vaccine (Pharmacy To Dose - Influenza Vaccine) 1 each IM ONETIME ONE Stop: 09/05/20 14:15 Last Admin: 09/05/20 18:35 Dose: Not Given Documented by: Influenza Virus Vaccine (Fluad Quad [id number] Syringe) 60 mcg IM .ONCE ONE Stop: 09/07/20 10:46 Last Admin: 09/07/20 10:39 Dose: 60 mcg Documented by: Iopamidol (Isovue-300 (61%)) 50 ml IVPUSH ONETIME STA Stop: 09/05/20 04:11 Last Admin: 09/05/20 04:10 Dose: 50 ml Documented by: Ketorolac Tromethamine (Toradol) 15 mg IVPUSH ONETIME ONE Stop: 09/05/20 02:28 Last Admin: 09/05/20 02:35 Dose: 15 mg Documented by: Morphine Sulfate (Morphine) 2 mg IVPUSH Q4H PRN PRN Reason: Pain Omeprazole (Omeprazole) 20 mg PO ACBREAKFAST [facility] Last Admin: 09/07/20 06:34 Dose: 20 mg Documented by: Budesonide/Formoterol 160-4.5 Mcg/Puff 6 Gm Inhaler 2 each INH BID [facility] Last Admin: 09/07/20 09:04 Dose: Not Given Documented by: Pravastatin Sodium (Pravachol) 20 mg PO BEDTIME [facility] Last Admin: 09/06/20 20:56 Dose: 20 mg Documented by: - Exam Quality Assessment: Reports: DVT Prophylaxis. Denies: Supplemental Oxygen General: Reports: Alert, Oriented, Cooperative, No Acute Distress Lungs: Reports: Clear to Auscultation, Normal Respiratory Effort Cardiovascular: Reports: Regular Rate, Regular Rhythm GI/Abdominal Exam: Normal Bowel Sounds, Soft, Non-Tender Extremities: Normal Inspection, Normal Range of Motion, Non-Tender, No Pedal Edema Neurological: Reports: No New Focal Deficit Psy/Mental Status: Reports: Alert, Normal Affect, Normal Mood
[2020-09-07] MEDS ORDERED: FLU Vacc QV2020-21(65YR UP)/PF 240 MCG/0.7 ML Syringe IM ONE (14:30)
== END 2020-09-07 10:55 | disposition home or self-care (01) | DRG 871 ==
LOC: MW.ED 02:06 → MW.MS 05:26
PROVIDERS: ADMIT Student in an Organized Health Care Education/Training Program; ATTEND Student in an Organized Health Care Education/Training Program
DX: A41.9 Sepsis, unspecified organism (principal); J18.9 Pneumonia, unspecified organism; R09.02 Hypoxemia; I95.9 Hypotension, unspecified; U07.1 COVID-19; J44.0 Chronic obstructive pulmonary disease with (acute) lower respiratory infection; N17.9 Acute kidney failure, unspecified; I25.10 Atherosclerotic heart disease of native coronary artery without angina pectoris; M54.42 Lumbago with sciatica, left side; I73.9 Peripheral vascular disease, unspecified; J44.9 Chronic obstructive pulmonary disease, unspecified; F17.210 Nicotine dependence, cigarettes, uncomplicated; K75.9 Inflammatory liver disease, unspecified; F19.10 Other psychoactive substance abuse, uncomplicated; M54.5 Low back pain; N42.9 Disorder of prostate, unspecified; G89.29 Other chronic pain; F15.10 Other stimulant abuse, uncomplicated; H54.7 Unspecified visual loss; E78.00 Pure hypercholesterolemia, unspecified; E66.9 Obesity, unspecified; I10 Essential (primary) hypertension; Z87.891 Personal history of nicotine dependence; I71.4 Abdominal aortic aneurysm, without rupture; Z95.1 Presence of aortocoronary bypass graft; Z88.0 Allergy status to penicillin; Z88.1 Allergy status to other antibiotic agents; Z79.899 Other long term (current) drug therapy; I25.2 Old myocardial infarction; Z95.5 Presence of coronary angioplasty implant and graft; Z90.49 Acquired absence of other specified parts of digestive tract; Z68.32 Body mass index [BMI] 32.0-32.9, adult
CPT/HCPCS: 0240U; 36415; 71045; 74177; 80053; 80305; 81001; 83605; 83690; 83735; 83880; 84484; 85025; 87040; 87045; 87046; 87324; 87449; 87899; 90694; 94640; A9270-GY; G0008; J0456; J0696; J1650; J1885; J3475; J7040; J7050; J7120; Q9967

== ENCOUNTER 2020-09-11 14:40 | Inpatient (IN) | payer MEDICARE, MEDICAID ==
--- NOTE | 2020-09-11 15:10 | EDM.PDOC ---
ED HPI GENERAL MEDICAL PROBLEM - General Chief Complaint: Respiratory Problem Stated Complaint: TROUBLE BREATHING Time Seen by Provider: 09/11/20 14:52 Source of Information: Reports: Patient History Limitations: Reports: No Limitations - History of Present Illness INITIAL COMMENTS - FREE TEXT/NARRATIVE: Patient is a 75-year-old male who presents today for shortness of breath. Patient was recently discharged 4 days ago at the be admitted for Covid and hypoxia. Patient states today that he became more short of breath patient can barely walk 5 feet before he becomes short of breath. When patient arrived patient was satting 70% after walking from the front to the room. Patient was placed on a nonrebreather and now satting at 95%. Patient denies any chest pain fever chills nausea vomiting. - Related Data Allergies Allergy/AdvReac Type Severity Reaction Status Date / Time Penicillins Allergy Severe Bronchospas Verified 09/11/20 15:02 ms levofloxacin [From Levaquin] Allergy Other Verified 09/11/20 15:02 Home Meds: Home Meds Gabapentin [Neurontin] 600 mg PO TID 12/15/19 [History] Metoprolol Tartrate 25 mg PO BID 12/15/19 [History] Pravastatin [Pravachol] 20 mg PO BEDTIME 12/15/19 [History] lisinopriL [Lisinopril] 5 mg PO DAILY 12/15/19 [History] Budesonide/Formoterol [Symbicort 160-4.5 MCG] 2 inh IH BID 09/05/20 [History] Omeprazole 20 mg PO DAILY 09/05/20 [History] Acetaminophen [Tylenol] 650 mg PO Q4H PRN tablet 09/07/20 [Rx] Albuterol/Ipratropium [Combivent Respimat] 0 gm INH Q4H inhaler 09/07/20 [Rx] Azithromycin [Zithromax] 500 mg PO Q24H #4 tablet 09/07/20 [Rx] Cefdinir 300 mg PO BID #8 capsule 09/07/20 [Rx] Past Medical History HEENT History: Reports: Impaired Vision Other HEENT History: has top and bottom dentures, wears reading glasses as needed Cardiovascular History: Reports: Bypass, CAD, High Cholesterol, Hypertension, [place], Stents Respiratory History: Reports: COPD, SOB Other Respiratory History: smokes 2 packs of cigarettes per day for over 6 yrs. quit a year and a half ago Gastrointestinal History: Reports: Hepatitis Other Gastrointestinal History: states he is on his last treatment for hepatitis C,h/o elevated LFT'S Genitourinary History: Reports: Prostate Disorder Musculoskeletal History: Reports: Back Pain, Chronic Other Musculoskeletal History: WILLA, chronic leg pain Neurological History: Reports: None Psychiatric History: Reports: Addiction, Other (See Below) Other Psychiatric History: hx ETOH abuse Endocrine/Metabolic History: Reports: Obesity/BMI 30+ Hematologic History: Reports: None Immunologic History: Reports: None Oncologic (Cancer) History: Reports: None Dermatologic History: Reports: None - Infectious Disease History Infectious Disease History: Reports: Chicken Pox, Measles, Mumps - Past Surgical History Head Surgeries/Procedures: Reports: None HEENT Surgical History: Reports: Naso-Sinus Surgery Cardiovascular Surgical History: Reports: Coronary Artery Bypass, Vascular Surgery Other Cardiovascular Surgeries/Procedures: multiple vascular surgeries to left lower extremities, including bilat. aorto-femoral bypass, fem-fem cross over bypass and left fem-pop. bypass. Respiratory Surgical History: Reports: None GI Surgical History: Reports: Appendectomy Male Surgical History: Reports: TURP-Transurethral Resection of Prostate Other Male Surgeries/Procedures: Prostate Endocrine Surgical History: Reports: None Neurological Surgical History: Reports: Laminectomy Musculoskeletal Surgical History: Reports: Other (See Below) Other Musculoskeletal Surgeries/Procedures:: left foot - 3 hammer toe repair Oncologic Surgical History: Reports: None Dermatological Surgical History: Reports: None Social & Family History - Family History Family Medical History: No Pertinent Family History - Tobacco Use Tobacco Use Status *Q: Never Tobacco User - Caffeine Use Caffeine Use: Reports: Coffee, Energy Drinks, Soda, Tea - Recreational Drug Use Recreational Drug Use: Yes Recreational Drug Type: Reports: Marijuana/Hashish - Living Situation & Occupation Living situation: Reports: with Significant Other ED ROS GENERAL - Review of Systems Review Of Systems: See Below Constitutional: Reports: No Symptoms HEENT: Reports: No Symptoms Respiratory: Reports: Shortness of Breath Cardiovascular: Reports: No Symptoms Endocrine: Reports: No Symptoms GI/Abdominal: Reports: No Symptoms : Reports: No Symptoms Musculoskeletal: Reports: No Symptoms Skin: Reports: No Symptoms Neurological: Reports: No Symptoms Psychiatric: Reports: No Symptoms Hematologic/Lymphatic: Reports: No Symptoms Immunologic: Reports: No Symptoms ED EXAM, GENERAL - Physical Exam Exam: See Below Exam Limited By: No Limitations General Appearance: Alert, Mild Distress Head: Atraumatic Respiratory/Chest: Rales, Accessory Muscle Use Cardiovascular: Normal Peripheral Pulses, Regular Rate, Rhythm GI/Abdominal: Normal Bowel Sounds, Soft, Non-Tender Back Exam: Full Range of Motion Extremities: Normal Inspection, Normal Range of Motion, Non-Tender Neurological: Alert, Oriented, Normal Cognition #1 Interpretation EKG Date: 09/11/20 Time: 14:50 Rhythm: NSR Rate (Beats/Min): 85 ST-T: Normal Course - Vital Signs Last Recorded V/S: Last Vital Signs Temp 98.9 F 09/11/20 14:58 Pulse 88 09/11/20 14:58 Resp 22 H 09/11/20 14:58 BP 97/61 09/11/20 14:58 Pulse Ox 71 L 09/11/20 14:58 - Orders/Labs/Meds Orders: Active Orders 24 hr Category Date Time Status EKG 12 Lead [EKG Documentation Completion] [RC] STAT Care 09/11/20 14:50 Active Labs: Laboratory Tests 09/11/20 09/11/20 09/11/20 Range/Units 14:53 14:53 14:53 WBC 7.28 (4.0-11.0) K/uL RBC 5.33 (4.50-5.90) M/uL Hgb 16.4 (13.0-17.0) g/dL Hct 49.9 (38.0-50.0) % MCV 93.6 (80.0-98.0) fL MCH 30.8 (27.0-32.0) pg MCHC 32.9 (31.0-37.0) g/dL RDW Std Deviation 48.0 (28.0-62.0) fl RDW Coeff of [place] 14 (11.0-15.0) % Plt Count 151 (150-400) K/uL MPV 11.40 (7.40-12.00) fL Neut % (Auto) 77.7 (48.0-80.0) % Lymph % (Auto) 11.3 L (16.0-40.0) % [place] % (Auto) 10.9 (0.0-15.0) % Eos % (Auto) 0.0 (0.0-7.0) % Baso % (Auto) 0.1 (0.0-1.5) % Neut # (Auto) 5.7 (1.4-5.7) K/uL Lymph # (Auto) 0.8 (0.6-2.4) K/uL [place] # (Auto) 0.8 (0.0-0.8) K/uL Eos # (Auto) 0.0 (0.0-0.7) K/uL Baso # (Auto) 0.0 (0.0-0.1) K/uL Nucleated RBC % 0.0 /100WBC Nucleated RBCs # 0 K/uL Lactate 2.7 H* (0.20-2.00) mmol/L Sodium 132 L (136-148) mmol/L Potassium 4.1 (3.5-5.1) mmol/L Chloride 96 L (98-107) mmol/L Carbon Dioxide 26.7 (21.0-32.0) mmol/L BUN 24 H (7.0-18.0) mg/dL Creatinine 1.4 H (0.8-1.3) mg/dL Est Cr Clr Drug Dosing 50.73 mL/min Estimated GFR (MDRD) 49.3 ml/min Glucose 157 H (74-106) mg/dL Calcium 8.6 (8.5-10.1) mg/dL Phosphorus 2.4 L (2.6-4.7) mg/dL Magnesium 2.1 (1.8-2.4) mg/dL Total Bilirubin 0.2 (0.2-1.0) mg/dL AST 74 H (15-37) IU/L ALT 24 (14-63) IU/L Alkaline Phosphatase 74 (46-116) U/L Creatine Kinase 577 H (26-308) U/L Troponin I < 0.050 (0.000-0.056) ng/mL Total Protein 6.9 (6.4-8.2) g/dL Albumin 2.8 L (3.4-5.0) g/dL Globulin 4.1 H (2.6-4.0) g/dL Albumin/Globulin Ratio 0.7 L (0.9-1.6) - Re-Assessments/Exams Free Text/Narrative Re-Assessment/Exam: 09/11/20 15:43 X-ray shows worsening pneumonia likely due to Covid this is a 7 out for patient. Patient still requiring nonrebreather will be admitted to the hospital for oxygen requirement. Departure - Departure Time of Disposition: 15:43 Disposition: Admitted As Inpatient 65 Condition: Good Clinical Impression: COVID-19 - Discharge Information Referrals: PCP,None [Primary Care Provider] - Forms: ED Department Discharge Sepsis Event Note (ED) - Evaluation Sepsis Screening Result: No Definite Risk - Focused Exam Vital Signs: Vital Signs Temp Pulse Resp BP Pulse Ox 09/11/20 14:58 98.9 F 88 22 H 97/61 71 L - My Orders Last 24 Hours: My Active Orders 09/11/20 14:50 EKG 12 Lead [EKG Documentation Completion] [RC] STAT - Assessment/Plan Last 24 Hours: My Active Orders 09/11/20 14:50 EKG 12 Lead [EKG Documentation Completion] [RC] STAT Assessment:: Patient is a 75-year-old male who presents today for shortness of breath. Patient recently has positive Covid and was discharged however he became more short of breath at home and is now 77% on room air requiring no nonrebreather which is now satting 95% is starting to feel more comfortable. Patient will likely need readmission for oxygen dependent.
[2020-09-11 15:27] LABS: BLOOD UREA NITROGEN,BUN 24 mg/dL (7.0-18.0); CARBON DIOXIDE,CO2 26.7 mmol/L (21.0-32.0); CHLORIDE,CL 96 mmol/L (98-107); GLUCOSE RANDOM 157 mg/dL (74-106); POTASSIUM,K 4.1 mmol/L (3.5-5.1); SODIUM,NA 132 mmol/L (136-148)
--- NOTE | 2020-09-11 15:31 | CR ---
INDICATION: COVID with worsening hypoxia an increasing dyspnea COMPARISON: August 28, 2020 TECHNIQUE: Single-view portable chest radiograph FINDINGS: TUBES AND LINES: None. HEART AND MEDIASTINUM: Heart size normal. Median sternotomy.. LUNGS AND PLEURAL SPACES: Moderate to severe diffuse multifocal airspace disease.This has markedly worsened when compared to the prior study.Normal pleural spaces. OSSEOUS STRUCTURES: Age-appropriate appearance. No acute focal finding. IMPRESSION: Moderate to severe diffuse multifocal airspace disease markedly worsened when compared to September 05, 2020. Normal pleural spaces. Compatible with worsening pneumonia. Dictated by Barry Cast MD @ Sep 11 2020 3:27PM Signed by Dr. Barry Cast @ Sep 11 2020 3:29PM
[2020-09-11] MEDS ORDERED: REMDESIVIR 200 MG in Sodium Chloride 0.9% 250 ML IV ONE (17:07)
[2020-09-11] MEDS ORDERED: methylPREDNISolone Sodium Succinate 125 MG/2 ML SDV IM ONE ×2 (17:15→22:00)
[2020-09-11] MEDS ORDERED: Doxycycline 100 MG in Sodium Chloride 0.9% 100 ML IV SCH ×2 (17:30→22:00)
--- NOTE | 2020-09-11 17:55 | PCM.HP.2 ---
H&P History of Present Illness - General Date of Service: 09/11/20 Admit Problem/Dx: Admission Diagnosis/Problem Admission Diagnosis/Problem Hypoxia Source of Information: Patient - History of Present Illness Initial Comments - Free Text/Narative: Patient is a 75-year-old gentleman with previous history of COPD, coronary artery disease with 3 times stents and CABG procedure/PAD/HDL. Was recently a dmitted on September 05 for Covid and discharged on September 07, 2020. Patient comes into the ER presenting with shortness of breath, upon arrival was satting in the 70s with minimal amount of activity. Was requiring 15 L of oxygen with sats resuming to 95%. Patient denies any chest pain, fever, chills, nausea, vomiting, diarrhea, GI or symptoms, any sick contacts or recent travel. ER course: EKG normal chest x-ray indicating worsening pneumonia. CBC, CMP, CK 577, lactic acid 2.7, UA, U tox. - Related Data Allergies/Adverse Reactions: Allergies Allergy/AdvReac Type Severity Reaction Status Date / Time Penicillins Allergy Severe Bronchospas Verified 09/11/20 15:02 ms levofloxacin [From Levaquin] Allergy Other Verified 09/11/20 15:02 Home Medications: Home Meds Gabapentin [Neurontin] 600 mg PO TID 12/15/19 [History] Metoprolol Tartrate 25 mg PO BID 12/15/19 [History] Pravastatin [Pravachol] 20 mg PO BEDTIME 12/15/19 [History] lisinopriL [Lisinopril] 5 mg PO DAILY 12/15/19 [History] Budesonide/Formoterol [Symbicort 160-4.5 MCG] 2 inh IH BID 09/05/20 [History] Omeprazole 20 mg PO DAILY 09/05/20 [History] Acetaminophen [Tylenol] 650 mg PO Q4H PRN tablet 09/07/20 [Rx] Albuterol/Ipratropium [Combivent Respimat] 0 gm INH Q4H inhaler 09/07/20 [Rx] Azithromycin [Zithromax] 500 mg PO Q24H #4 tablet 09/07/20 [Rx] Cefdinir 300 mg PO BID #8 capsule 09/07/20 [Rx] Past Medical History HEENT History: Reports: Impaired Vision Other HEENT History: has top and bottom dentures, wears reading glasses as needed Cardiovascular History: Reports: Bypass, CAD, High Cholesterol, Hypertension, [place], Stents Respiratory History: Reports: COPD, SOB Other Respiratory History: smokes 2 packs of cigarettes per day for over 6 yrs. quit a year and a half ago Gastrointestinal History: Reports: Hepatitis Other Gastrointestinal History: states he is on his last treatment for hepatitis C,h/o elevated LFT'S Genitourinary History: Reports: Prostate Disorder Musculoskeletal History: Reports: Back Pain, Chronic Other Musculoskeletal History: WILLA, chronic leg pain Neurological History: Reports: None Psychiatric History: Reports: Addiction, Other (See Below) Other Psychiatric History: hx ETOH abuse Endocrine/Metabolic History: Reports: Obesity/BMI 30+ Hematologic History: Reports: None Immunologic History: Reports: None Oncologic (Cancer) History: Reports: None Dermatologic History: Reports: None - Infectious Disease History Infectious Disease History: Reports: Chicken Pox, Measles, Mumps - Past Surgical History Head Surgeries/Procedures: Reports: None HEENT Surgical History: Reports: Naso-Sinus Surgery Cardiovascular Surgical History: Reports: Coronary Artery Bypass, Vascular Surgery Other Cardiovascular Surgeries/Procedures: multiple vascular surgeries to left lower extremities, including bilat. aorto-femoral bypass, fem-fem cross over bypass and left fem-pop. bypass. Respiratory Surgical History: Reports: None GI Surgical History: Reports: Appendectomy Male Surgical History: Reports: TURP-Transurethral Resection of Prostate Other Male Surgeries/Procedures: Prostate Endocrine Surgical History: Reports: None Neurological Surgical History: Reports: Laminectomy Musculoskeletal Surgical History: Reports: Other (See Below) Other Musculoskeletal Surgeries/Procedures:: left foot - 3 hammer toe repair Oncologic Surgical History: Reports: None Dermatological Surgical History: Reports: None Social & Family History - Family History Family Medical History: No Pertinent Family History - Tobacco Use Tobacco Use Status *Q: Never Tobacco User - Caffeine Use Caffeine Use: Reports: Coffee, Energy Drinks, Soda, Tea - Recreational Drug Use Recreational Drug Use: Yes Recreational Drug Type: Reports: Marijuana/Hashish - Living Situation & Occupation Living situation: Reports: with Significant Other H&P Review of Systems - Review of Systems: Review Of Systems: See Below General: Reports: No Symptoms HEENT: Reports: No Symptoms Pulmonary: Reports: Shortness of Breath Cardiovascular: Reports: No Symptoms Gastrointestinal: Reports: No Symptoms Genitourinary: Reports: No Symptoms Musculoskeletal: Reports: No Symptoms Skin: Reports: No Symptoms Psychiatric: Reports: No Symptoms Neurological: Reports: No Symptoms Hematologic/Lymphatic: Reports: No Symptoms Immunologic: Reports: No Symptoms Exam - Exam Exam: See Below - Vital Signs Vital Signs: Last Vital Signs Temp 98.9 F 09/11/20 14:58 Pulse 91 09/11/20 16:02 Resp 19 09/11/20 16:11 BP 117/71 09/11/20 16:02 Pulse Ox 96 09/11/20 16:02 Weight: 222 lb - Exam Quality Assessment: Supplemental Oxygen, DVT Prophylaxis General: Alert, Oriented, Cooperative HEENT: Conjunctiva Clear, EOMI, Hearing Intact, PERRLA Neck: Supple, Trachea Midline Lungs: Crackles Cardiovascular: Regular Rate, Regular Rhythm GI/Abdominal Exam: Normal Bowel Sounds, Soft, No Organomegaly, No Distention, No Mass Extremities: Normal Inspection, Normal Range of Motion, Non-Tender, No Pedal Edema, Normal Capillary Refill Peripheral Pulses: 2+: Radial (L), Radial (R), Dorsalis Pedis (L), Dorsalis Pedis (R) Skin: Warm, Dry, Intact Neurological: Cranial Nerves Intact, Reflexes Equal Bilateral Neuro Extensive - Mental Status: Alert, Oriented x3, Normal Mood/Affect, Normal Cognition, Memory Intact Neuro Extensive - Motor, Sensory, Reflexes: CN II-XII Intact, Normal Reflexes Psychiatric: Alert, Normal Affect, Normal Mood - Patient Data Lab Results Last 24 hrs: Laboratory Results - last 24 hr 09/11/20 09/11/20 09/11/20 Range/Units 14:53 14:53 14:53 WBC 7.28 (4.0-11.0) K/uL RBC 5.33 (4.50-5.90) M/uL Hgb 16.4 (13.0-17.0) g/dL Hct 49.9 (38.0-50.0) % MCV 93.6 (80.0-98.0) fL MCH 30.8 (27.0-32.0) pg MCHC 32.9 (31.0-37.0) g/dL RDW Std Deviation 48.0 (28.0-62.0) fl RDW Coeff of [place] 14 (11.0-15.0) % Plt Count 151 (150-400) K/uL MPV 11.40 (7.40-12.00) fL Neut % (Auto) 77.7 (48.0-80.0) % Lymph % (Auto) 11.3 L (16.0-40.0) % [place] % (Auto) 10.9 (0.0-15.0) % Eos % (Auto) 0.0 (0.0-7.0) % Baso % (Auto) 0.1 (0.0-1.5) % Neut # (Auto) 5.7 (1.4-5.7) K/uL Lymph # (Auto) 0.8 (0.6-2.4) K/uL [place] # (Auto) 0.8 (0.0-0.8) K/uL Eos # (Auto) 0.0 (0.0-0.7) K/uL Baso # (Auto) 0.0 (0.0-0.1) K/uL Nucleated RBC % 0.0 /100WBC Nucleated RBCs # 0 K/uL Lactate 2.7 H* (0.20-2.00) mmol/L Sodium 132 L (136-148) mmol/L Potassium 4.1 (3.5-5.1) mmol/L Chloride 96 L (98-107) mmol/L Carbon Dioxide 26.7 (21.0-32.0) mmol/L BUN 24 H (7.0-18.0) mg/dL Creatinine 1.4 H (0.8-1.3) mg/dL Est Cr Clr Drug Dosing 50.73 mL/min Estimated GFR (MDRD) 49.3 ml/min Glucose 157 H (74-106) mg/dL Calcium 8.6 (8.5-10.1) mg/dL Phosphorus 2.4 L (2.6-4.7) mg/dL Magnesium 2.1 (1.8-2.4) mg/dL Total Bilirubin 0.2 (0.2-1.0) mg/dL AST 74 H (15-37) IU/L ALT 24 (14-63) IU/L Alkaline Phosphatase 74 (46-116) U/L Creatine Kinase 577 H (26-308) U/L Troponin I < 0.050 (0.000-0.056) ng/mL Total Protein 6.9 (6.4-8.2) g/dL Albumin 2.8 L (3.4-5.0) g/dL Globulin 4.1 H (2.6-4.0) g/dL Albumin/Globulin Ratio 0.7 L (0.9-1.6) Result Diagrams: 09/11/20 14:53 09/11/20 14:53 Sepsis Event Note - Evaluation Sepsis Screening Result: No Definite Risk - Focused Exam Vital Signs: Vital Signs Temp Pulse Resp BP Pulse Ox 09/11/20 16:11 19 09/11/20 16:02 91 117/71 96 09/11/20 15:47 89 126/68 97 09/11/20 15:32 88 22 H 126/69 96 09/11/20 15:25 97 26 H 134/72 99 09/11/20 15:02 90 21 H 105/69 95 09/11/20 14:58 98.9 F 88 22 H 97/61 71 L 09/11/20 14:47 66 104/59 L 99 - Problem List (1) COVID-19 SNOMED Code(s): 038597790 ICD Code: U07.1 - COVID-19 Status: Acute Current Visit: Yes Problem List Initiated/Reviewed/Updated: Yes Orders Last 24hrs: Active Orders 24 hr Category Date Time Status Patient Status [ADT] Routine ADT 09/11/20 15:49 Active Acapella [RT Chest Physiotherapy] [RC] ASDIRECTED Care 09/11/20 17:47 Ordered Antiembolic Devices [RC] PER UNIT ROUTINE Care 09/11/20 17:04 Active EKG 12 Lead [EKG Documentation Completion] [RC] STAT Care 09/11/20 14:50 Active Oxygen Therapy [RC] PRN Care 09/11/20 17:03 Active RT Aerosol Therapy [RC] ASDIRECTED Care 09/11/20 17:05 Active RT Incentive Spirometry [RC] ASDIRECTED Care 09/11/20 17:47 Ordered RT Post Treatment Assessment [RC] Click to Edit Care 09/11/20 17:45 Ordered RT Pre-Treatment Assessment [RC] Click to Edit Care 09/11/20 17:45 Ordered Up With Assistance [RC] ASDIRECTED Care 09/11/20 17:03 Active VTE/DVT Education [RC] PER UNIT ROUTINE Care 09/11/20 17:03 Active Vital Signs [RC] Q4H Care 09/11/20 17:03 Active Heart Healthy Diet [DIET] Diet 09/11/20 Dinner Active CTA Chest W WO Contrast [Ang Chest] [CT] Urgent Exams 09/11/20 17:02 Ordered BILIRUBIN DIRECT [CHEM] DAILY Lab 09/12/20 17:15 Ordered BILIRUBIN DIRECT [CHEM] DAILY Lab 09/13/20 17:15 Ordered BILIRUBIN DIRECT [CHEM] DAILY Lab 09/14/20 17:15 Ordered BILIRUBIN DIRECT [CHEM] DAILY Lab 09/15/20 17:15 Ordered CBC WITH AUTO DIFF [HEME] AM Lab 09/12/20 05:11 Ordered CBC WITH AUTO DIFF [HEME] AM Lab 09/13/20 05:11 Ordered CBC WITH AUTO DIFF [HEME] AM Lab 09/14/20 05:11 Ordered CBC WITH AUTO DIFF [HEME] AM Lab 09/15/20 05:11 Ordered CBC WITH AUTO DIFF [HEME] AM Lab 09/16/20 05:11 Ordered COMPREHENSIVE METABOLIC PN,CMP [CHEM] AM Lab 09/12/20 05:11 Ordered COMPREHENSIVE METABOLIC PN,CMP [CHEM] AM Lab 09/13/20 05:11 Ordered COMPREHENSIVE METABOLIC PN,CMP [CHEM] AM Lab 09/14/20 05:11 Ordered COMPREHENSIVE METABOLIC PN,CMP [CHEM] AM Lab 09/15/20 05:11 Ordered COMPREHENSIVE METABOLIC PN,CMP [CHEM] AM Lab 09/16/20 05:11 Ordered CULTURE BLOOD [BC] Stat Lab 09/11/20 17:22 Ordered CULTURE BLOOD [BC] Stat Lab 09/11/20 17:22 Ordered CULTURE SPUTUM + SMEAR [RM] Urgent Lab 09/11/20 17:20 Ordered LACTIC ACID,WHOLE BLOOD [BG] Routine Lab 09/11/20 23:55 Ordered Acetaminophen [TylenoL] Med 09/11/20 17:03 Active 650 mg PO Q4H PRN Albuterol/Ipratropium [DuoNeb 3.0-0.5 MG/3 ML] Med 09/11/20 17:03 Active 3 ml NEB Q4HRRT PRN Budesonide/Formoterol [Symbicort 160-4.5 MCG] Med 09/11/20 21:00 Ordered 2 inh INH BID Cefepime [Maxipime in D5W 2 GM/50 ML] 2 gm Med 09/11/20 17:15 Active Premix Bag 1 bag IV Q8H Doxycycline [Vibramycin] 100 mg Med 09/11/20 17:30 Active Sodium Chloride 0.9% [Normal Saline] 100 ml IV Q12H Enoxaparin [Lovenox] Med 09/11/20 17:15 Active 40 mg SUBCUT Q24H Gabapentin Med 09/11/20 22:00 Ordered 600 mg PO TID Metoprolol Tartrate [Lopressor] Med 09/11/20 21:00 Ordered 25 mg PO BID Ondansetron [Zofran ODT] Med 09/11/20 17:03 Active 4 mg PO Q4H PRN Pantoprazole [ProTONIX IV] 40 mg Med 09/11/20 18:00 Ordered Sodium Chloride 0.9% [Normal Saline] 10 ml IV Q24H Pravastatin Med 09/11/20 21:00 Ordered 20 mg PO BEDTIME Remdesivir 100 mg Med 09/12/20 17:45 Ordered Sodium Chloride 0.9% [Normal Saline] 100 ml IV Q24H lisinopriL [Prinivil] Med 09/12/20 09:00 Ordered 5 mg PO DAILY methylPREDNISolone Sod Succ [Solu-MEDROL] Med 09/12/20 09:00 Active 125 mg IM BID Blood Culture x2 Reflex Set [OM.PC] Stat Oth 09/11/20 17:20 Ordered RT Oxygen High Flow [RESPCARE] Routine Oth 09/11/20 16:06 Active Sequential Compression Device [OM.PC] Per Unit Routine Oth 09/11/20 17:04 Ordered Resuscitation Status Routine Resus Stat 09/11/20 17:03 Ordered Medication Orders Acetaminophen (Tylenol) 650 mg PO Q4H PRN PRN Reason: Pain (Mild 1-3)/fever Albuterol/Ipratropium (Duoneb 3.0-0.5 Mg/3 Ml) 3 ml NEB Q4HRRT PRN PRN Reason: Shortness Of Breath/wheezing Budesonide/Formoterol Fumarate (Symbicort 160-4.5 Mcg) gm INH BID BERYL Enoxaparin Sodium (Lovenox) 40 mg SUBCUT Q24H BERYL Cefepime HCl 2 gm/ Premix 50 mls @ 100 mls/hr IV Q8H BERYL Doxycycline Hyclate 100 mg/ (Sodium Chloride) 100 mls @ 100 mls/hr IV Q12H [facility] Stop: 09/18/20 17:31 Remdesivir 100 mg/ Sodium (Chloride) 100 mls @ 100 mls/hr IV Q24H [facility] Stop: 09/15/20 18:44 Pantoprazole Sodium 40 mg/ (Sodium Chloride) 10 mls @ 300 mls/hr IV Q24H [facility] Lisinopril (Prinivil) 5 mg PO DAILY [facility] Methylprednisolone Sodium Succinate (Solu-Medrol) 125 mg IM BID [facility] Metoprolol Tartrate (Lopressor) 25 mg PO BID [facility] Non-Formulary Medication (Gabapentin) 600 mg PO TID [facility] Non-Formulary Medication (Pravastatin) 20 mg PO BEDTIME [facility] Ondansetron HCl (Zofran Odt) 4 mg PO Q4H PRN PRN Reason: nausea, able to take PO Assessment/Plan Comment:: 75-year-old gentleman admitted for hypoxic respiratory failure secondary to worsening Covid pneumonia. 1. Hypoxic respiratory failure secondary to worsening over pneumonia: Satting at 70% on room air, therefore provide Supplemental oxygen on heated high flow 80%, maintain sats 90 to 92% Chest x-ray: Worsening pneumonia CTA to rule out PE Continue to trend lactate which was mildly elevated at 2.7, patient not septic as he is vitally stable with a normal white blood cell count, maps above 65 no endorgan damage Antibiotics: 2 g cefepime, doxycycline 100 mg IV twice daily for total of 5 to 7 days Blood culture and sputum culture pending, will adjust antibiotics accordingly Remdesivir loading dose 200 IV, will continue with 4 additional days of 100 IV; we will continue to monitor LFTs DuoNebs every 4 hours Solu-Medrol 125 twice a day DVT prophylaxis Lovenox 40 subcu every 24 Incentive spirometry Acapella 2. PRAFUL: BUN 24, creatinine 1.4, continue to monitor with a.m. CMP, Avoid nephrotoxic agents Patient does not appear dehydrated, tolerating p.o. intake, may consider small amount of fluids if his lactate increases. Past medical history of COPD, coronary artery disease, PAD, hyperlipidemia; resumed home medications DVT prophylaxis Lovenox subcu 40, GI prophylaxis 40 pantoprazole, up with assistance, heart healthy diet
[2020-09-11] MEDS ORDERED: Pantoprazole 40 MG in Sodium Chloride 0.9% 10 ML IV SCH (18:00)
[2020-09-11] MEDS: Enoxaparin 40 MG/0.4 ML Syringe SUBCUT SCH (18:43)
[2020-09-11] MEDS ORDERED: Iopamidol 755 MG/ML 500 ML Multipack Bottle IVPUSH ONE (19:30)
[2020-09-11] MEDS: Cefepime 2 GM in Premix Bag 1 BAG IV SCH (19:34)
--- NOTE | 2020-09-11 20:13 | CT ---
TECHNIQUE: CT pulmonary angiogram utilizing 100 mL of Isovue-370 contrast. Coronal and sagittal formats. INDICATION: COVID-19, new onset dyspnea. COMPARISON: Same day chest radiograph. FINDINGS: Central airways patent. Diffuse bronchial wall thickening. Widespread hazy and patchy ground-glass opacities scattered throughout the lungs bilaterally. The posterior aspects of the right upper greater than left upper lobes demonstrate more dense/heterogeneous ground-glass and consolidative opacities. Multifocal calcified pleural plaques bilaterally. No pneumothorax or pleural effusion. - Heavy coronary artery calcifications status post median sternotomy. No pericardial effusion. Evaluation of the pulmonary arterial system is degraded by suboptimal contrast opacification (approximately 250 Hounsfield units in the pulmonary arterial trunk. No filling defect identified to the level of the segmental pulmonary arteries. Thoracic aorta is normal in caliber with mild atherosclerotic calcification. - Unremarkable thyroid. Diffuse pancreatic atrophy with scattered small parenchymal calcifications. No aggressive osseous lesion. IMPRESSION: 1. No evidence of acute PE through the segmental pulmonary arteries. Nondiagnostic evaluation of the subsegmental pulmonary arterial branches as result of suboptimal contrast opacification and surrounding opacities. 2. Widespread patchy ground-glass opacities, most compatible with COVID-19 pneumonia. 3. More dense/heterogeneous opacities in the posterior aspects of the upper lungs, raising the possibility of superimposed aspiration or other acute airspace disease. 4. Multifocal calcified pleural plaques bilaterally, as may be seen with remote asbestos exposure. Dictated by Francisco Ellison MD @ 09/11/2020 8:12:35 PM Please note that all CT scans at this facility use dose modulation, iterative reconstruction, and/or weight-based dosing when appropriate to reduce radiation dose to as low as reasonably achievable. Dictated by: Francisco Ellison MD @ 09/11/2020 20:12:39 (Electronically Signed)
[2020-09-11] MEDS ORDERED: Non-Formulary Medication 1 Each (Pravastatin 20 MG) PO SCH (21:00)
[2020-09-11] MEDS ORDERED: Non-Formulary Medication 1 Each (Gabapentin 600 MG) PO SCH (22:00)
[2020-09-11] MEDS: Metoprolol Tartrate 25 MG Tab PO SCH (22:04)
[2020-09-11] MEDS: Pantoprazole 40 MG in Sodium Chloride 0.9% 10 ML IV SCH (22:46)
[2020-09-12] MEDS: Cefepime 2 GM in Premix Bag 1 BAG IV SCH ×3 (03:53→16:21)
[2020-09-12 06:55] LABS: CARBON DIOXIDE,CO2 21.8 mmol/L (21.0-32.0); POTASSIUM,K 4.5 mmol/L (3.5-5.1)
[2020-09-12] MEDS: Gabapentin 300 MG Cap PO SCH ×3 (07:33→21:21)
[2020-09-12] MEDS: Budesonide/Formoterol 160-4.5 MCG/Puff 6 GM Inhaler INH SCH ×3 (07:36→20:21)
[2020-09-12] MEDS: Lisinopril 5 MG Tab PO SCH (08:19)
[2020-09-12] MEDS: Metoprolol Tartrate 25 MG Tab PO SCH ×2 (08:19→20:13)
[2020-09-12] MEDS ORDERED: methylPREDNISolone Sodium Succinate 125 MG/2 ML SDV IM SCH (09:00)
[2020-09-12] MEDS: Albuterol/Ipratropium 3.0-0.5 MG/3 ML Neb Soln NEB PRN (10:36)
[2020-09-12] MEDS: Acetaminophen 325 MG Tab PO PRN (10:37)
[2020-09-12] MEDS: Doxycycline 100 MG in Sodium Chloride 0.9% 100 ML IV SCH ×2 (10:38→21:17)
--- NOTE | 2020-09-12 15:03 | PN ---
THC Physician - Brief Progress [id number]/04/2021 14:08[facility] Eduardo Victoria, [place] - MWN (MULUGETA) - MWN SHALONDA MOLINA, COVID+Date of Service 09/12/2020 14:08H PI/Events of Note eICU Admission NotePt is a 75 yo M presenting with dyspnea and worsening hypoxia af ter being admitted 09/05-09/07 with COVID pneumonia. PMH includes COPD, CAD, CABG, HTN, MS, Hepatitis , ETOH abuse, MO, PAD and HDL. In the ED he was found to be hypoxic to the low 70's and placed on HF NC. CXR/CT demonstrated worsening infiltrates, but no PE. His LA was increased at 2.7 and he was star nichol on empiric Doxy and Cefepime. He is also being continued on Steroids and Remdesivir for COVID the rapy. He is currently resting in bed in mild respiratory distress. He is on BIPAP 10/5 with a RR of 2 2, a HR of 60, BP of 109/64 and a SpO2of 93%. Case was discussed with his nurse Kaye. eICU Recomme ndations:1) BIPAP support to maintain SpO2 > 92%2) Continue COVID therapies of Steroids, Remdesivir a nd Lovenox per protocol3) Wean Solumedrol as tolerated4) Pulm toileting5) Trend LA until clear6) Cont inue empiric antibiotics pending cultures and with recent hospitalization, consider Vanco7) Check Pro carlos and MRSA nasal swab to de-escalate antibiotics8) Prone as tolerated9) GI [id number]) CIWA ther apy if neededThank you for allowing us to participate in the care of your patient.Interventions Major -Acid-Base disturbance - evaluation and management, Hypoxemia - evaluation and management, Infection - evaluation and management, Respiratory failure - evaluation and [id number] e therapies (e.g. VTE, beta nadya, etc.), Communication with other healthcare providers and/or fami ly, Medication change / dose adjustment 1 5:02
[2020-09-12] MEDS: Enoxaparin 40 MG/0.4 ML Syringe SUBCUT SCH (16:20)
[2020-09-12] MEDS: REMDESIVIR 100 MG in Sodium Chloride 0.9% 100 ML IV SCH (17:20)
[2020-09-12] MEDS: VANCOMYCIN IV SCH (18:29)
[2020-09-12] MEDS: WATER FOR INJ IV SCH (18:29)
--- NOTE | 2020-09-12 19:24 | PCM.PN ---
- General Info Date of Service: 09/12/20 Subjective Update: Patient is a 75-year-old gentleman admitted for worsening Covid pneumonia started on high flow nasal cannula is on 80% humidified air. There is no overnight events. This morning patient appears to be tachypneic, not using any accessory muscles however tiring. Denies any chest pain, fever, chills. Functional Status: Reports: Tolerating Diet - Review of Systems General: Reports: Fatigue HEENT: Reports: No Symptoms Pulmonary: Reports: Shortness of Breath, Cough Cardiovascular: Reports: No Symptoms Gastrointestinal: Reports: No Symptoms Genitourinary: Reports: No Symptoms Musculoskeletal: Reports: No Symptoms Skin: Reports: No Symptoms Neurological: Reports: No Symptoms Psychiatric: Reports: No Symptoms - Patient Data Vitals - Most Recent: Last Vital Signs Temp 96.5 F L 09/12/20 08:08 Pulse 66 09/12/20 08:19 Resp 25 H 09/12/20 13:54 BP 109/64 09/12/20 13:54 Pulse Ox 96 09/12/20 13:54 Weight - Most Recent: 244 lb I&O - Last 24 Hours: Intake & Output 09/12/20 09/12/20 09/12/20 06:59 14:59 22:59 Intake Total 700 530 Output Total 375 275 Balance 325 255 Lab Results Last 24 Hours: Laboratory Results - last 24 hr 09/12/20 09/12/20 09/12/20 Range/Units 00:30 06:17 06:17 WBC 7.81 (4.0-11.0) K/uL RBC 5.44 (4.50-5.90) M/uL Hgb 16.6 (13.0-17.0) g/dL Hct 50.7 H (38.0-50.0) % MCV 93.2 (80.0-98.0) fL MCH 30.5 (27.0-32.0) pg MCHC 32.7 (31.0-37.0) g/dL RDW Std Deviation 48.3 (28.0-62.0) fl RDW Coeff of [place] 14 (11.0-15.0) % Plt Count 160 (150-400) K/uL MPV 11.50 (7.40-12.00) fL Neut % (Auto) 86.3 H (48.0-80.0) % Lymph % (Auto) 6.4 L (16.0-40.0) % [place] % (Auto) 7.0 (0.0-15.0) % Eos % (Auto) 0.0 (0.0-7.0) % Baso % (Auto) 0.3 (0.0-1.5) % Neut # (Auto) 6.7 H (1.4-5.7) K/uL Lymph # (Auto) 0.5 L (0.6-2.4) K/uL [place] # (Auto) 0.6 (0.0-0.8) K/uL Eos # (Auto) 0.0 (0.0-0.7) K/uL Baso # (Auto) 0.0 (0.0-0.1) K/uL Nucleated RBC % 0.0 /100WBC Nucleated RBCs # 0 K/uL Lactate 1.8 (0.20-2.00) mmol/L Sodium 132 L (136-148) mmol/L Potassium 4.5 (3.5-5.1) mmol/L Chloride 100 (98-107) mmol/L Carbon Dioxide 21.8 (21.0-32.0) mmol/L BUN 25 H (7.0-18.0) mg/dL Creatinine 1.3 (0.8-1.3) mg/dL Est Cr Clr Drug Dosing 54.63 mL/min Estimated GFR (MDRD) 53.7 ml/min Glucose 212 H (74-106) mg/dL Calcium 8.7 (8.5-10.1) mg/dL Total Bilirubin 0.3 (0.2-1.0) mg/dL Direct Bilirubin (0.0-0.5) mg/dL AST 72 H (15-37) IU/L ALT 23 (14-63) IU/L Alkaline Phosphatase 75 (46-116) U/L Total Protein 6.9 (6.4-8.2) g/dL Albumin 2.7 L (3.4-5.0) g/dL Globulin 4.2 H (2.6-4.0) g/dL Albumin/Globulin Ratio 0.6 L (0.9-1.6) 09/12/20 Range/Units 17:36 WBC (4.0-11.0) K/uL RBC (4.50-5.90) M/uL Hgb (13.0-17.0) g/dL Hct (38.0-50.0) % MCV (80.0-98.0) fL MCH (27.0-32.0) pg MCHC (31.0-37.0) g/dL RDW Std Deviation (28.0-62.0) fl RDW Coeff of [place] (11.0-15.0) % Plt Count (150-400) K/uL MPV (7.40-12.00) fL Neut % (Auto) (48.0-80.0) % Lymph % (Auto) (16.0-40.0) % [place] % (Auto) (0.0-15.0) % Eos % (Auto) (0.0-7.0) % Baso % (Auto) (0.0-1.5) % Neut # (Auto) (1.4-5.7) K/uL Lymph # (Auto) (0.6-2.4) K/uL [place] # (Auto) (0.0-0.8) K/uL Eos # (Auto) (0.0-0.7) K/uL Baso # (Auto) (0.0-0.1) K/uL Nucleated RBC % /100WBC Nucleated RBCs # K/uL Lactate (0.20-2.00) mmol/L Sodium (136-148) mmol/L Potassium (3.5-5.1) mmol/L Chloride (98-107) mmol/L Carbon Dioxide (21.0-32.0) mmol/L BUN (7.0-18.0) mg/dL Creatinine (0.8-1.3) mg/dL Est Cr Clr Drug Dosing mL/min Estimated GFR (MDRD) ml/min Glucose (74-106) mg/dL Calcium (8.5-10.1) mg/dL Total Bilirubin (0.2-1.0) mg/dL Direct Bilirubin 0.10 (0.0-0.5) mg/dL AST (15-37) IU/L ALT (14-63) IU/L Alkaline Phosphatase (46-116) U/L Total Protein (6.4-8.2) g/dL Albumin (3.4-5.0) g/dL Globulin (2.6-4.0) g/dL Albumin/Globulin Ratio (0.9-1.6) Zaheer Results Last 24 Hours: Microbiology 09/11/20 18:15 Aerobic Blood Culture - Preliminary Blood - Venous - Lab Draw NO GROWTH AFTER 1 DAY Anaerobic Blood Culture - Final 09/11/20 18:10 Aerobic Blood Culture - Preliminary Blood - Venous NO GROWTH AFTER 1 DAY Anaerobic Blood Culture - Preliminary NO GROWTH AFTER 1 DAY 09/12/20 10:40 Gram Stain - Preliminary Sputum - Expectorated Med Orders - Current: Current Medications Acetaminophen (Tylenol) 650 mg PO Q4H PRN PRN Reason: Pain (Mild 1-3)/fever Last Admin: 09/12/20 10:37 Dose: 650 mg Documented by: Albuterol/Ipratropium (Duoneb 3.0-0.5 Mg/3 Ml) 3 ml NEB Q4HRRT PRN PRN Reason: Shortness Of Breath/wheezing Last Admin: 09/12/20 10:36 Dose: 3 ml Documented by: Enoxaparin Sodium (Lovenox) 40 mg SUBCUT Q24H [facility] Last Admin: 09/12/20 16:20 Dose: 40 mg Documented by: Gabapentin (Neurontin) 600 mg PO TID [facility] Last Admin: 09/12/20 16:08 Dose: 600 mg Documented by: Cefepime HCl 2 gm/ Premix 50 mls @ 100 mls/hr IV Q8H [facility] Last Admin: 09/12/20 16:21 Dose: 100 mls/hr Documented by: Remdesivir 100 mg/ Sodium (Chloride) 100 mls @ 100 mls/hr IV Q24H [facility] Stop: 09/15/20 18:44 Last Admin: 09/12/20 17:20 Dose: 100 mls/hr Documented by: Pantoprazole Sodium 40 mg/ (Sodium Chloride) 10 mls @ 300 mls/hr IV Q24H [facility] Last Admin: 09/11/20 22:46 Dose: 300 mls/hr Documented by: Doxycycline Hyclate 100 mg/ (Sodium Chloride) 100 mls @ 100 mls/hr IV Q12H [facility] Last Admin: 09/12/20 10:38 Dose: 100 mls/hr Documented by: Vancomycin HCl 1.75 gm/ Premix 350 mls @ 175 mls/hr IV Q12H [facility] Last Admin: 09/12/20 18:29 Dose: 175 mls/hr Documented by: Lisinopril (Prinivil) 5 mg PO DAILY [facility] Last Admin: 09/12/20 08:19 Dose: 5 mg Documented by: Methylprednisolone Sodium Succinate (Solu-Medrol) 125 mg IM BID [facility] Last Admin: 09/12/20 08:28 Dose: 125 mg Documented by: Metoprolol Tartrate (Lopressor) 25 mg PO BID [facility] Last Admin: 09/12/20 08:19 Dose: 25 mg Documented by: Ondansetron HCl (Zofran Odt) 4 mg PO Q4H PRN PRN Reason: nausea, able to take PO Budesonide/Formoterol 160-4.5 Mcg/Puff 6 Gm Inhaler 2 each INH BID [facility] Last Admin: 09/12/20 08:19 Dose: Not Given Documented by: Pravastatin Sodium (Pravachol) 20 mg PO BEDTIME [facility] Discontinued Medications Remdesivir 200 mg/ Sodium (Chloride) 250 mls @ 250 mls/hr IV ONETIME ONE Stop: 09/11/20 17:08 Last Admin: 09/11/20 20:36 Dose: 250 mls/hr Documented by: Doxycycline Hyclate 100 mg/ (Sodium Chloride) 100 mls @ 100 mls/hr IV Q12H [facility] Stop: 09/18/20 17:31 Last Admin: 09/11/20 22:52 Dose: Not Given Documented by: Pantoprazole Sodium 40 mg/ (Sodium Chloride) 10 mls @ 300 mls/hr IV Q24H [facility] Last Admin: 09/11/20 23:00 Dose: Not Given Documented by: Doxycycline Hyclate 100 mg/ (Sodium Chloride) 100 mls @ 100 mls/hr IV Q12H [facility] Last Admin: 09/11/20 22:52 Dose: 100 mls/hr Documented by: Iopamidol (Isovue Multipack-370 (76%)) 100 ml IVPUSH ONETIME ONE Stop: 09/11/20 19:31 Last Admin: 09/11/20 19:31 Dose: 100 ml Documented by: Methylprednisolone Sodium Succinate (Solu-Medrol) 125 mg IM ONETIME ONE Stop: 09/11/20 17:16 Last Admin: 09/11/20 22:50 Dose: 125 mg Documented by: Methylprednisolone Sodium Succinate (Solu-Medrol) 125 mg IM ONETIME ONE Stop: 09/11/20 22:01 Last Admin: 09/11/20 22:51 Dose: Not Given Documented by: Non-Formulary Medication (Gabapentin) 600 mg PO TID [facility] Last Admin: 09/11/20 23:51 Dose: Not Given Documented by: Non-Formulary Medication (Pravastatin) 20 mg PO BEDTIME [facility] Last Admin: 09/11/20 23:52 Dose: Not Given Documented by: - Exam Quality Assessment: DVT Prophylaxis General: Alert, Oriented HEENT: Pupils Equal, Pupils Reactive, EOMI, Mucous Membr. Moist/[place]: Supple, Trachea Midline, No JVD. No: Lymphadenopathy Lungs: Crackles, Rhonchi GI/Abdominal Exam: Normal Bowel Sounds, Soft, Non-Tender, No Distention, No Mass Extremities: Normal Inspection, Normal Range of Motion, Non-Tender, No Pedal Edema, Normal Capillary Refill Peripheral Pulses: 2+: Radial (L), Radial (R), Dorsalis Pedis (L), Dorsalis Pedis (R) Skin: Warm, Dry, Intact Neurological: No New Focal Deficit Psy/Mental Status: Alert, Normal Affect, Normal Mood Sepsis Event Note - Evaluation Sepsis Screening Result: No Definite Risk - Focused Exam Vital Signs: Vital Signs Temp Pulse Pulse Resp BP BP Pulse Ox 09/12/20 13:54 25 H 109/64 96 09/12/20 13:24 24 H 101/60 94 L 09/12/20 12:24 20 98/56 L 85 L 09/12/20 12:10 20 90/62 85 L 09/12/20 12:07 20 89/47 L 85 L 09/12/20 10:30 09/12/20 08:49 09/12/20 08:19 66 111/66 09/12/20 08:08 96.5 F L 67 26 H 111/66 89 L Pulse Ox 09/12/20 13:54 09/12/20 13:24 09/12/20 12:24 09/12/20 12:10 09/12/20 12:07 09/12/20 10:30 88 L 09/12/20 08:49 93 L 09/12/20 08:19 09/12/20 08:08 - Problem List & Annotations (1) COVID-19 SNOMED Code(s): 906812166 Code(s): U07.1 - COVID-19 Status: Acute Current Visit: Yes - Problem List Review Problem List Initiated/Reviewed/Updated: Yes - My Orders Last 24 Hours: My Active Orders 09/11/20 21:00 Metoprolol Tartrate [Lopressor] 25 mg PO BID Patient's Own Medication [Ptom] 2 each INH BID 09/11/20 22:00 Pantoprazole [ProTONIX IV] 40 mg Sodium Chloride 0.9% [Normal Saline] 10 ml IV Q24H 09/11/20 23:30 Gabapentin [Neurontin] 600 mg PO TID 09/11/20 23:31 Pravastatin [Pravachol] 20 mg PO BEDTIME 09/12/20 09:00 lisinopriL [Prinivil] 5 mg PO DAILY methylPREDNISolone Sod Succ [Solu-MEDROL] 125 mg IM BID 09/12/20 10:00 Doxycycline [Vibramycin] 100 mg Sodium Chloride 0.9% [Normal Saline] 100 ml IV Q12H 09/12/20 10:40 CULTURE SPUTUM + SMEAR [RM] Urgent 09/12/20 17:45 Remdesivir 100 mg Sodium Chloride 0.9% [Normal Saline] 100 ml IV Q24H 09/13/20 05:11 CBC WITH AUTO DIFF [HEME] AM COMPREHENSIVE METABOLIC PN,CMP [CHEM] AM 09/13/20 17:15 BILIRUBIN DIRECT [CHEM] DAILY 09/14/20 05:11 CBC WITH AUTO DIFF [HEME] AM COMPREHENSIVE METABOLIC PN,CMP [CHEM] AM 09/14/20 17:15 BILIRUBIN DIRECT [CHEM] DAILY 09/15/20 05:11 CBC WITH AUTO DIFF [HEME] AM COMPREHENSIVE METABOLIC PN,CMP [CHEM] AM 09/15/20 17:15 BILIRUBIN DIRECT [CHEM] DAILY 09/16/20 05:11 CBC WITH AUTO DIFF [HEME] AM COMPREHENSIVE METABOLIC PN,CMP [CHEM] AM - Plan Plan:: 75-year-old gentleman admitted for hypoxic respiratory failure secondary to worsening Covid pneumonia. 1. Hypoxic respiratory failure secondary to worsening over pneumonia: Increase oxygen requirement therefore will transfer to the ICU, RT suggested BiPAP Chest x-ray: Worsening pneumonia CTA to rule out PE Continue to trend lactate which was mildly elevated at 2.7, patient not septic as he is vitally stable with a normal white blood cell count, maps above 65 no endorgan damage Antibiotics: 2 g cefepime, doxycycline 100 mg IV twice daily for total of 5 to 7 days Blood culture and sputum culture pending, will adjust antibiotics accordingly Remdesivir loading dose 200 IV, will continue with 4 additional days of 100 IV; we will continue to monitor LFTs DuoNebs every 4 hours Solu-Medrol 125 twice a day DVT prophylaxis Lovenox 40 subcu every 24 Incentive spirometry Acapella 2. PRAFUL: Improved BUN 25, creatinine 1.3, continue to monitor with a.m. CMP, Avoid nephrotoxic agents Past medical history of COPD, coronary artery disease, PAD, hyperlipidemia; resumed home medications DVT prophylaxis Lovenox subcu 40, GI prophylaxis 40 pantoprazole, up with a ssistance, heart healthy diet
[2020-09-12] MEDS: Pravastatin 40 MG Tab PO SCH (20:12)
[2020-09-12] MEDS: methylPREDNISolone Sodium Succinate 125 MG/2 ML SDV IVPUSH SCH (20:14)
[2020-09-12] MEDS: Pantoprazole 40 MG in Sodium Chloride 0.9% 10 ML IV SCH (21:14)
[2020-09-13] MEDS: Cefepime 2 GM in Premix Bag 1 BAG IV SCH ×3 (01:29→19:43)
[2020-09-13 05:51] LABS: CARBON DIOXIDE,CO2 22.8 mmol/L (21.0-32.0); POTASSIUM,K 5.1 mmol/L (3.5-5.1)
[2020-09-13] MEDS: VANCOMYCIN IV SCH ×2 (06:18→20:59)
[2020-09-13] MEDS: WATER FOR INJ IV SCH ×2 (06:18→20:59)
[2020-09-13] MEDS: Gabapentin 300 MG Cap PO SCH ×3 (06:18→21:12)
[2020-09-13] MEDS: Budesonide/Formoterol 160-4.5 MCG/Puff 6 GM Inhaler INH SCH ×2 (09:25→20:37)
[2020-09-13] MEDS: methylPREDNISolone Sodium Succinate 125 MG/2 ML SDV IVPUSH SCH (09:26)
[2020-09-13] MEDS: Doxycycline 100 MG in Sodium Chloride 0.9% 100 ML IV SCH ×2 (09:33→23:33)
[2020-09-13] MEDS: Metoprolol Tartrate 25 MG Tab PO SCH ×2 (11:44→21:12)
[2020-09-13] MEDS: Lisinopril 5 MG Tab PO SCH (11:47)
--- NOTE | 2020-09-13 16:43 | PCM.PN ---
- General Info Date of Service: 09/13/20 Subjective Update: Admitted for worsening Covid pneumonia remains on BiPAP requiring increased oxygen demand. Expressed feels more fatigued and curious of possible intubation process. Discussed benefits and the risks associated. At bedside also discussed POA and wishes. There were no overnight events. This morning patient appears to be tachypneic, not using any accessory muscles however tiring. Denies any chest pain, fever, chills. Functional Status: Reports: Tolerating Diet, Incentive Spirometry - Review of Systems General: Reports: Fatigue HEENT: Reports: No Symptoms Pulmonary: Reports: Shortness of Breath. Denies: Pleuritic Chest Pain, Cough Cardiovascular: Reports: No Symptoms Gastrointestinal: Reports: No Symptoms Genitourinary: Reports: No Symptoms Musculoskeletal: Reports: No Symptoms Skin: Reports: No Symptoms Neurological: Reports: No Symptoms Psychiatric: Reports: No Symptoms - Patient Data Vitals - Most Recent: Last Vital Signs Temp 97.0 F 09/13/20 12:00 Pulse 56 L 09/13/20 11:44 Resp 22 H 09/13/20 15:00 BP 116/61 09/13/20 15:00 Pulse Ox 88 L 09/13/20 15:00 Weight - Most Recent: 250 lb I&O - Last 24 Hours: Intake & Output 09/13/20 09/13/20 09/13/20 06:59 14:59 22:59 Intake Total 600 Output Total 460 Balance 140 Lab Results Last 24 Hours: Laboratory Results - last 24 hr 09/12/20 09/13/20 09/13/20 Range/Units 17:36 04:50 04:50 WBC 10.67 (4.0-11.0) K/uL RBC 4.93 (4.50-5.90) M/uL Hgb 14.9 (13.0-17.0) g/dL Hct 46.4 (38.0-50.0) % MCV 94.1 (80.0-98.0) fL MCH 30.2 (27.0-32.0) pg MCHC 32.1 (31.0-37.0) g/dL RDW Std Deviation 49.6 (28.0-62.0) fl RDW Coeff of [place] 15 (11.0-15.0) % Plt Count 221 (150-400) K/uL MPV 11.80 (7.40-12.00) fL Neut % (Auto) 78.2 (48.0-80.0) % Lymph % (Auto) 7.4 L (16.0-40.0) % [place] % (Auto) 14.2 (0.0-15.0) % Eos % (Auto) 0.0 (0.0-7.0) % Baso % (Auto) 0.2 (0.0-1.5) % Neut # (Auto) 8.4 H (1.4-5.7) K/uL Lymph # (Auto) 0.8 (0.6-2.4) K/uL [place] # (Auto) 1.5 H (0.0-0.8) K/uL Eos # (Auto) 0.0 (0.0-0.7) K/uL Baso # (Auto) 0.0 (0.0-0.1) K/uL Nucleated RBC % 0.0 /100WBC Nucleated RBCs # 0 K/uL Sodium 135 L (136-148) mmol/L Potassium 5.1 (3.5-5.1) mmol/L Chloride 101 (98-107) mmol/L Carbon Dioxide 22.8 (21.0-32.0) mmol/L BUN 40 H (7.0-18.0) mg/dL Creatinine 1.2 (0.8-1.3) mg/dL Est Cr Clr Drug Dosing 59.19 mL/min Estimated GFR (MDRD) 58.9 ml/min Glucose 189 H (74-106) mg/dL Calcium 8.6 (8.5-10.1) mg/dL Total Bilirubin 0.4 (0.2-1.0) mg/dL Direct Bilirubin 0.10 (0.0-0.5) mg/dL AST 73 H (15-37) IU/L ALT 20 (14-63) IU/L Alkaline Phosphatase 70 (46-116) U/L Total Protein 6.5 (6.4-8.2) g/dL Albumin 2.4 L (3.4-5.0) g/dL Globulin 4.1 H (2.6-4.0) g/dL Albumin/Globulin Ratio 0.6 L (0.9-1.6) Zaheer Results Last 24 Hours: Microbiology 09/12/20 10:40 Gram Stain - Final Sputum - Expectorated 09/11/20 18:15 Aerobic Blood Culture - Preliminary Blood - Venous - Lab Draw NO GROWTH AFTER 1 DAY Anaerobic Blood Culture - Final 09/11/20 18:10 Aerobic Blood Culture - Preliminary Blood - Venous NO GROWTH AFTER 1 DAY Anaerobic Blood Culture - Preliminary NO GROWTH AFTER 1 DAY Med Orders - Current: Current Medications Acetaminophen (Tylenol) 650 mg PO Q4H PRN PRN Reason: Pain (Mild 1-3)/fever Last Admin: 09/12/20 10:37 Dose: 650 mg Documented by: Albuterol/Ipratropium (Duoneb 3.0-0.5 Mg/3 Ml) 3 ml NEB Q4HRRT PRN PRN Reason: Shortness Of Breath/wheezing Last Admin: 09/12/20 10:36 Dose: 3 ml Documented by: Enoxaparin Sodium (Lovenox) 40 mg SUBCUT Q24H [facility] Last Admin: 09/12/20 16:20 Dose: 40 mg Documented by: Gabapentin (Neurontin) 600 mg PO TID [facility] Last Admin: 09/13/20 13:32 Dose: 600 mg Documented by: Remdesivir 100 mg/ Sodium (Chloride) 100 mls @ 100 mls/hr IV Q24H [facility] Stop: 09/15/20 18:44 Last Admin: 09/12/20 17:20 Dose: 100 mls/hr Documented by: Pantoprazole Sodium 40 mg/ (Sodium Chloride) 10 mls @ 300 mls/hr IV Q24H [facility] Last Admin: 09/12/20 21:14 Dose: 300 mls/hr Documented by: Doxycycline Hyclate 100 mg/ (Sodium Chloride) 100 mls @ 100 mls/hr IV Q12H [facility] Last Admin: 09/13/20 09:33 Dose: 100 mls/hr Documented by: Vancomycin HCl 1.75 gm/ Premix 350 mls @ 175 mls/hr IV Q12H [facility] Last Admin: 09/13/20 06:18 Dose: 175 mls/hr Documented by: Cefepime HCl 2 gm/ Premix 50 mls @ 100 mls/hr IV Q8H [facility] Lisinopril (Prinivil) 5 mg PO DAILY [facility] Last Admin: 09/13/20 11:47 Dose: Not Given Documented by: Methylprednisolone Sodium Succinate (Solu-Medrol) 125 mg IVPUSH DAILY [facility] Metoprolol Tartrate (Lopressor) 25 mg PO BID [facility] Last Admin: 09/13/20 11:44 Dose: Not Given Documented by: Ondansetron HCl (Zofran Odt) 4 mg PO Q4H PRN PRN Reason: nausea, able to take PO Budesonide/Formoterol 160-4.5 Mcg/Puff 6 Gm Inhaler 2 each INH BID [facility] Last Admin: 09/13/20 09:25 Dose: Not Given Documented by: Pravastatin Sodium (Pravachol) 20 mg PO BEDTIME [facility] Last Admin: 09/12/20 20:12 Dose: 20 mg Documented by: Discontinued Medications Remdesivir 200 mg/ Sodium (Chloride) 250 mls @ 250 mls/hr IV ONETIME ONE Stop: 09/11/20 17:08 Last Admin: 09/11/20 20:36 Dose: 250 mls/hr Documented by: Cefepime HCl 2 gm/ Premix 50 mls @ 100 mls/hr IV Q8H [facility] Last Admin: 09/13/20 11:39 Dose: 100 mls/hr Documented by: Doxycycline Hyclate 100 mg/ (Sodium Chloride) 100 mls @ 100 mls/hr IV Q12H [facility] Stop: 09/18/20 17:31 Last Admin: 09/11/20 22:52 Dose: Not Given Documented by: Pantoprazole Sodium 40 mg/ (Sodium Chloride) 10 mls @ 300 mls/hr IV Q24H [facility] Last Admin: 09/11/20 23:00 Dose: Not Given Documented by: Doxycycline Hyclate 100 mg/ (Sodium Chloride) 100 mls @ 100 mls/hr IV Q12H [facility] Last Admin: 09/11/20 22:52 Dose: 100 mls/hr Documented by: Iopamidol (Isovue Multipack-370 (76%)) 100 ml IVPUSH ONETIME ONE Stop: 09/11/20 19:31 Last Admin: 09/11/20 19:31 Dose: 100 ml Documented by: Methylprednisolone Sodium Succinate (Solu-Medrol) 125 mg IM ONETIME ONE Stop: 09/11/20 17:16 Last Admin: 09/11/20 22:50 Dose: 125 mg Documented by: Methylprednisolone Sodium Succinate (Solu-Medrol) 125 mg IM BID [facility] Last Admin: 09/12/20 08:28 Dose: 125 mg Documented by: Methylprednisolone Sodium Succinate (Solu-Medrol) 125 mg IM ONETIME ONE Stop: 09/11/20 22:01 Last Admin: 09/11/20 22:51 Dose: Not Given Documented by: Methylprednisolone Sodium Succinate (Solu-Medrol) 125 mg IVPUSH Q12H [facility] Last Admin: 09/13/20 09:26 Dose: 125 mg Documented by: Non-Formulary Medication (Gabapentin) 600 mg PO TID [facility] Last Admin: 09/11/20 23:51 Dose: Not Given Documented by: Non-Formulary Medication (Pravastatin) 20 mg PO BEDTIME [facility] Last Admin: 09/11/20 23:52 Dose: Not Given Documented by: - Exam Quality Assessment: Supplemental Oxygen, DVT Prophylaxis General: Alert, Oriented, Cooperative HEENT: Pupils Equal, Pupils Reactive, EOMI, Mucous Membr. Moist/[place] Lungs: Crackles, Rhonchi Cardiovascular: Bradycardia GI/Abdominal Exam: Normal Bowel Sounds, Non-Tender, No Distention, No Mass Extremities: Normal Inspection, Normal Range of Motion, Non-Tender, No Pedal Edema, Normal Capillary Refill Peripheral Pulses: 2+: Radial (L), Radial (R), Dorsalis Pedis (L), Dorsalis Pedis (R) Skin: Warm, Dry, Intact Neurological: No New Focal Deficit Psy/Mental Status: Alert, Normal Affect, Normal Mood Sepsis Event Note - Evaluation Sepsis Screening Result: No Definite Risk - Focused Exam Vital Signs: Vital Signs Temp Pulse Resp BP BP Pulse Ox Pulse Ox 09/13/20 15:00 22 H 116/61 88 L 09/13/20 14:00 17 121/62 88 L 09/13/20 13:00 21 H 112/65 90 L 09/13/20 12:00 97.0 F 21 H 92/54 L 91 L 09/13/20 11:47 92/54 L 09/13/20 11:44 56 L 92/54 L 09/13/20 11:00 19 118/61 92 L 09/13/20 10:00 18 119/74 89 L 91 L 09/13/20 09:00 19 96/50 L 91 L 09/13/20 08:00 96.8 F L 22 H 95/71 90 L 09/13/20 07:00 98.6 F 23 H 100/60 88 L 09/13/20 06:00 98.6 F 23 H 108/56 L 88 L 09/13/20 05:00 98.6 F 20 101/59 L 88 L - Problem List & Annotations (1) COVID-19 SNOMED Code(s): 758534948 Code(s): U07.1 - COVID-19 Status: Acute Current Visit: Yes - Problem List Review Problem List Initiated/Reviewed/Updated: Yes - My Orders Last 24 Hours: My Active Orders 09/12/20 17:45 Remdesivir 100 mg Sodium Chloride 0.9% [Normal Saline] 100 ml IV Q24H 09/13/20 17:15 BILIRUBIN DIRECT [CHEM] DAILY 09/13/20 19:30 Cefepime [Maxipime in D5W 2 GM/50 ML] 2 gm Premix Bag 1 bag IV Q8H 09/14/20 05:11 CBC WITH AUTO DIFF [HEME] AM COMPREHENSIVE METABOLIC PN,CMP [CHEM] AM 09/14/20 17:15 BILIRUBIN DIRECT [CHEM] DAILY 09/15/20 05:11 CBC WITH AUTO DIFF [HEME] AM COMPREHENSIVE METABOLIC PN,CMP [CHEM] AM 09/15/20 17:15 BILIRUBIN DIRECT [CHEM] DAILY 09/16/20 05:11 CBC WITH AUTO DIFF [HEME] AM COMPREHENSIVE METABOLIC PN,CMP [CHEM] AM - Plan Plan:: 75-year-old gentleman admitted for hypoxic respiratory failure secondary to worsening Covid pneumonia. 1. Hypoxic respiratory failure secondary to worsening over pneumonia: Increase oxygen requirement therefore will transfer to the ICU, RT suggested BiPAP Chest x-ray: Worsening pneumonia CTA to rule out PE Antibiotics: Added IV vancomycin, continue with 2 g cefepime, doxycycline 100 mg IV twice daily Blood culture and sputum culture pending, will adjust antibiotics accordingly Remdesivir 100 IV; we will continue to monitor LFTs DuoNebs every 4 hours Solu-Medrol 125 switch to once a day per eICU recommendations which are very much appreciated DVT prophylaxis Lovenox 40 subcu every 24 Incentive spirometry Acapella 2. PRAFUL: Resolved BUN 40, creatinine 1.2, continue to monitor with a.m. CMP, Avoid nephrotoxic agents 3. Hypertensive/bradycardic: Held morning dose of metoprolol and lisinopril, will continue to monitor and resume accordingly Past medical history of COPD, coronary artery disease, PAD, hyperlipidemia; resumed home medications DVT prophylaxis Lovenox subcu 40, GI prophylaxis 40 pantoprazole, up with assistance, heart healthy diet
[2020-09-13] MEDS: Enoxaparin 40 MG/0.4 ML Syringe SUBCUT SCH (17:27)
[2020-09-13] MEDS: REMDESIVIR 100 MG in Sodium Chloride 0.9% 100 ML IV SCH (17:28)
--- NOTE | 2020-09-13 20:47 | PCM.SN.2 ---
- Free Text/Narrative Note: Thoroughly discussed with patient possible next episode of requiring intubation if his oxygen demands were to increase. Patient was explained the risks and benefits of intubation. Patient expressed that he would like a code change and suggested a DNR/DNI in which he does not want to be ventilated or have any chest compressions. Had patient repeat back into confirm and explain what his understanding of this was to ensure that he was sure of his final decision.
[2020-09-13] MEDS: Pantoprazole 40 MG in Sodium Chloride 0.9% 10 ML IV SCH (21:08)
[2020-09-13] MEDS: Pravastatin 40 MG Tab PO SCH (21:12)
[2020-09-14] MEDS: Cefepime 2 GM in Premix Bag 1 BAG IV SCH ×3 (03:02→20:24)
[2020-09-14] MEDS: Gabapentin 300 MG Cap PO SCH ×3 (06:18→22:05)
[2020-09-14] MEDS ORDERED: methylPREDNISolone Sodium Succinate 125 MG/2 ML SDV IVPUSH SCH (09:00)
[2020-09-14] MEDS: Lisinopril 5 MG Tab PO SCH (09:55)
[2020-09-14] MEDS: Doxycycline 100 MG in Sodium Chloride 0.9% 100 ML IV SCH ×2 (09:56→22:06)
[2020-09-14] MEDS: Budesonide/Formoterol 160-4.5 MCG/Puff 6 GM Inhaler INH SCH ×2 (10:22→22:05)
[2020-09-14] MEDS: VANCOMYCIN IV SCH ×3 (10:58→22:59)
[2020-09-14] MEDS: WATER FOR INJ IV SCH ×3 (10:58→22:59)
[2020-09-14] MEDS: Metoprolol Tartrate 25 MG Tab PO SCH ×2 (10:59→20:24)
[2020-09-14 12:41] LABS: CARBON DIOXIDE,CO2 21.9 mmol/L (21.0-32.0); POTASSIUM,K 4.9 mmol/L (3.5-5.1)
--- NOTE | 2020-09-14 13:38 | PN ---
[facility] Physician - Brief Progress JrkvBCSHUCCFM25/06/2021 13:24[facility] Eduardo [place], [place] - [place] ([place] - [facility] SHALONDA MOLINA COVID+Date of Service 09/14/2020 13:24H PI/Events of Note Brief eICU NoteEMR reviewed. See eCare note dated 09/12. Still requiring bipap and high FiO2. On cefepime/Vanc/Doxy. Known history of CAD, I do not see an Echo/EF on chart.Patient se en on camera: obese older male on bipap, appears to be restingP 56 120/72 24 93% on bipap 11/7/80%Lab s noted.Recommend: ABG to titrate bipap and FiO2: goal pH >7.2 and pO2>55.Check daily Mg, Phos if he is not taking good PO.Consider trial of diuresis to improve oxygenation. Echo to document EF if not done.High risk for DVT/PE, chest CTA on admit neg for PE.DNR/DNI. Consider Palliative care if his c ondition does not improve.Please contact us if we may be of assistance.Interventions Major-Infection - evaluation and management, Respiratory failure - evaluation and management
[2020-09-14] MEDS ORDERED: Furosemide 40 MG/4 ML VIAL IVPUSH ONE (14:24)
--- NOTE | 2020-09-14 14:36 | PCM.PN ---
- General Info Date of Service: 09/14/20 Admission Dx/Problem (Free Text): Admission Diagnosis/Problem Admission Diagnosis/Problem Hypoxia Subjective Update: Admitted for worsening Covid pneumonia remains on BiPAP requiring increased oxygen demand. Expressed feels ok, has expressed his wish of being DNR/DNI - Review of Systems General: Denies: Fever, Weakness HEENT: Denies: Contact Lenses, Dysphasia Pulmonary: Reports: Shortness of Breath, Cough, Sputum Cardiovascular: Denies: Chest Pain, Palpitations Gastrointestinal: Denies: Abdominal Pain, Constipation Genitourinary: Denies: Dysuria, Frequency, Burning Musculoskeletal: Denies: Neck Pain, Shoulder Pain, Arm Pain, Hand Pain Skin: Denies: Cyanosis, Jaundice, Mottled, Pallor - Patient Data Vitals - Most Recent: Last Vital Signs Temp 36 C L 09/14/20 08:00 Pulse 56 L 09/14/20 10:59 Resp 24 H 09/14/20 09:00 BP 120/72 09/14/20 10:59 Pulse Ox 93 L 09/14/20 10:00 Weight - Most Recent: 117.027 kg I&O - Last 24 Hours: Intake & Output 09/13/20 09/14/20 09/14/20 22:59 06:59 14:59 Intake Total 560 680 Output Total 750 780 Balance -190 -100 Lab Results Last 24 Hours: Laboratory Results - last 24 hr 09/12/20 09/13/20 09/14/20 Range/Units 17:36 18:02 07:00 WBC 15.17 H (4.0-11.0) K/uL RBC 4.79 (4.50-5.90) M/uL Hgb 14.6 (13.0-17.0) g/dL Hct 45.6 (38.0-50.0) % MCV 95.2 (80.0-98.0) fL MCH 30.5 (27.0-32.0) pg MCHC 32.0 (31.0-37.0) g/dL RDW Std Deviation 51.0 (28.0-62.0) fl RDW Coeff of [place] 15 (11.0-15.0) % Plt Count 266 (150-400) K/uL MPV 11.30 (7.40-12.00) fL Add Manual Diff YES Neutrophils % (Manual) 66 (48.0-80.0) % Band Neutrophils % 17 % Lymphocytes % (Manual) 9 L (16.0-40.0) % Monocytes % (Manual) 8 (0.0-15.0) % Nucleated RBC % 0.2 /100WBC Absolute Seg Neuts 10.0 H (1.4-5.7) Band Neutrophils # 2.6 Lymphocytes # (Manual) 1.4 (0.6-2.4) Monocytes # (Manual) 1.2 H (0.0-0.8) Nucleated RBCs # 0 K/uL Sodium (136-148) mmol/L Potassium (3.5-5.1) mmol/L Chloride (98-107) mmol/L Carbon Dioxide (21.0-32.0) mmol/L BUN (7.0-18.0) mg/dL Creatinine (0.8-1.3) mg/dL Est Cr Clr Drug Dosing mL/min Estimated GFR (MDRD) ml/min Glucose (74-106) mg/dL Calcium (8.5-10.1) mg/dL Total Bilirubin (0.2-1.0) mg/dL Direct Bilirubin 0.10 (0.0-0.5) mg/dL AST (15-37) IU/L ALT (14-63) IU/L Alkaline Phosphatase (46-116) U/L Total Protein (6.4-8.2) g/dL Albumin (3.4-5.0) g/dL Globulin (2.6-4.0) g/dL Albumin/Globulin Ratio (0.9-1.6) Procalcitonin 0.06 ng/mL Vancomycin Trough (5.0-10.0) ug/mL 09/14/20 09/14/20 Range/Units 07:00 07:00 WBC (4.0-11.0) K/uL RBC (4.50-5.90) M/uL Hgb (13.0-17.0) g/dL Hct (38.0-50.0) % MCV (80.0-98.0) fL MCH (27.0-32.0) pg MCHC (31.0-37.0) g/dL RDW Std Deviation (28.0-62.0) fl RDW Coeff of [place] (11.0-15.0) % Plt Count (150-400) K/uL MPV (7.40-12.00) fL Add Manual Diff Neutrophils % (Manual) (48.0-80.0) % Band Neutrophils % % Lymphocytes % (Manual) (16.0-40.0) % Monocytes % (Manual) (0.0-15.0) % Nucleated RBC % /100WBC Absolute Seg Neuts (1.4-5.7) Band Neutrophils # Lymphocytes # (Manual) (0.6-2.4) Monocytes # (Manual) (0.0-0.8) Nucleated RBCs # K/uL Sodium 140 (136-148) mmol/L Potassium 4.9 (3.5-5.1) mmol/L Chloride 105 (98-107) mmol/L Carbon Dioxide 21.9 (21.0-32.0) mmol/L BUN 42 H (7.0-18.0) mg/dL Creatinine 1.3 (0.8-1.3) mg/dL Est Cr Clr Drug Dosing 54.63 mL/min Estimated GFR (MDRD) 53.7 ml/min Glucose 191 H (74-106) mg/dL Calcium 8.4 L (8.5-10.1) mg/dL Total Bilirubin 0.3 (0.2-1.0) mg/dL Direct Bilirubin (0.0-0.5) mg/dL AST 78 H (15-37) IU/L ALT 23 (14-63) IU/L Alkaline Phosphatase 87 (46-116) U/L Total Protein 6.4 (6.4-8.2) g/dL Albumin 2.5 L (3.4-5.0) g/dL Globulin 3.9 (2.6-4.0) g/dL Albumin/Globulin Ratio 0.6 L (0.9-1.6) Procalcitonin ng/mL Vancomycin Trough 18.7 H (5.0-10.0) ug/mL Zaheer Results Last 24 Hours: Microbiology 09/12/20 10:40 Gram Stain - Final Sputum - Expectorated Sputum Culture - Preliminary 09/11/20 18:15 Aerobic Blood Culture - Preliminary Blood - Venous - Lab Draw NO GROWTH AFTER 2 DAYS Anaerobic Blood Culture - Final 09/11/20 18:10 Aerobic Blood Culture - Preliminary Blood - Venous NO GROWTH AFTER 2 DAYS Anaerobic Blood Culture - Preliminary NO GROWTH AFTER 2 DAYS Med Orders - Current: Current Medications Acetaminophen (Tylenol) 650 mg PO Q4H PRN PRN Reason: Pain (Mild 1-3)/fever Last Admin: 09/12/20 10:37 Dose: 650 mg Documented by: Albuterol/Ipratropium (Duoneb 3.0-0.5 Mg/3 Ml) 3 ml NEB Q4HRRT PRN PRN Reason: Shortness Of Breath/wheezing Last Admin: 09/12/20 10:36 Dose: 3 ml Documented by: Enoxaparin Sodium (Lovenox) 40 mg SUBCUT Q24H [facility] Last Admin: 09/13/20 17:27 Dose: 40 mg Documented by: Furosemide (Lasix) 20 mg IVPUSH NOW ONE Stop: 09/14/20 14:25 Gabapentin (Neurontin) 600 mg PO TID [facility] Last Admin: 09/14/20 06:18 Dose: Not Given Documented by: Remdesivir 100 mg/ Sodium (Chloride) 100 mls @ 100 mls/hr IV Q24H [facility] Stop: 09/15/20 18:44 Last Admin: 09/13/20 17:28 Dose: 100 mls/hr Documented by: Pantoprazole Sodium 40 mg/ (Sodium Chloride) 10 mls @ 300 mls/hr IV Q24H [facility] Last Admin: 09/13/20 21:08 Dose: 300 mls/hr Documented by: Doxycycline Hyclate 100 mg/ (Sodium Chloride) 100 mls @ 100 mls/hr IV Q12H [facility] Last Admin: 09/14/20 09:56 Dose: 100 mls/hr Documented by: Cefepime HCl 2 gm/ Premix 50 mls @ 100 mls/hr IV Q8H [facility] Last Admin: 09/14/20 11:27 Dose: 100 mls/hr Documented by: Vancomycin HCl 1.75 gm/ Premix 350 mls @ 175 mls/hr IV Q12H [facility] Last Admin: 09/14/20 10:58 Dose: 175 mls/hr Documented by: Lisinopril (Prinivil) 5 mg PO DAILY [facility] Last Admin: 09/14/20 09:55 Dose: 5 mg Documented by: Methylprednisolone Sodium Succinate (Solu-Medrol) 125 mg IVPUSH DAILY [facility] Last Admin: 09/14/20 09:55 Dose: 125 mg Documented by: Metoprolol Tartrate (Lopressor) 25 mg PO BID [facility] Last Admin: 09/14/20 10:59 Dose: Not Given Documented by: Ondansetron HCl (Zofran Odt) 4 mg PO Q4H PRN PRN Reason: nausea, able to take PO Budesonide/Formoterol 160-4.5 Mcg/Puff 6 Gm Inhaler 2 each INH BID [facility] Last Admin: 09/14/20 10:22 Dose: Not Given Documented by: Pravastatin Sodium (Pravachol) 20 mg PO BEDTIME [facility] Last Admin: 09/13/20 21:12 Dose: 20 mg Documented by: Discontinued Medications Remdesivir 200 mg/ Sodium (Chloride) 250 mls @ 250 mls/hr IV ONETIME ONE Stop: 09/11/20 17:08 Last Admin: 09/11/20 20:36 Dose: 250 mls/hr Documented by: Cefepime HCl 2 gm/ Premix 50 mls @ 100 mls/hr IV Q8H [facility] Last Admin: 09/13/20 11:39 Dose: 100 mls/hr Documented by: Doxycycline Hyclate 100 mg/ (Sodium Chloride) 100 mls @ 100 mls/hr IV Q12H [facility] Stop: 09/18/20 17:31 Last Admin: 09/11/20 22:52 Dose: Not Given Documented by: Pantoprazole Sodium 40 mg/ (Sodium Chloride) 10 mls @ 300 mls/hr IV Q24H [facility] Last Admin: 09/11/20 23:00 Dose: Not Given Documented by: Doxycycline Hyclate 100 mg/ (Sodium Chloride) 100 mls @ 100 mls/hr IV Q12H [facility] Last Admin: 09/11/20 22:52 Dose: 100 mls/hr Documented by: Vancomycin HCl 1.75 gm/ Premix 350 mls @ 175 mls/hr IV Q12H [facility] Last Admin: 09/14/20 11:01 Dose: Not Given Documented by: Iopamidol (Isovue Multipack-370 (76%)) 100 ml IVPUSH ONETIME ONE Stop: 09/11/20 19:31 Last Admin: 09/11/20 19:31 Dose: 100 ml Documented by: Methylprednisolone Sodium Succinate (Solu-Medrol) 125 mg IM ONETIME ONE Stop: 09/11/20 17:16 Last Admin: 09/11/20 22:50 Dose: 125 mg Documented by: Methylprednisolone Sodium Succinate (Solu-Medrol) 125 mg IM BID [facility] Last Admin: 09/12/20 08:28 Dose: 125 mg Documented by: Methylprednisolone Sodium Succinate (Solu-Medrol) 125 mg IM ONETIME ONE Stop: 09/11/20 22:01 Last Admin: 09/11/20 22:51 Dose: Not Given Documented by: Methylprednisolone Sodium Succinate (Solu-Medrol) 125 mg IVPUSH Q12H [facility] Last Admin: 09/13/20 09:26 Dose: 125 mg Documented by: Non-Formulary Medication (Gabapentin) 600 mg PO TID [facility] Last Admin: 09/11/20 23:51 Dose: Not Given Documented by: Non-Formulary Medication (Pravastatin) 20 mg PO BEDTIME [facility] Last Admin: 09/11/20 23:52 Dose: Not Given Documented by: - Exam Quality Assessment: Supplemental Oxygen General: Alert, Oriented Lungs: Normal Respiratory Effort, Crackles, Rales Cardiovascular: Regular Rate, Regular Rhythm GI/Abdominal Exam: Normal Bowel Sounds, Soft, Non-Tender Sepsis Event Note - Evaluation Sepsis Screening Result: No Definite Risk - Focused Exam Vital Signs: Vital Signs Temp Pulse Resp BP BP Pulse Ox Pulse Ox 09/14/20 10:59 56 L 120/72 09/14/20 10:00 93 L 09/14/20 09:55 129/73 09/14/20 09:00 24 H 129/73 90 L 09/14/20 08:00 36 C L 20 124/61 94 L 09/14/20 07:00 36.8 C 17 95/62 89 L 09/14/20 06:00 26 H 119/62 89 L 09/14/20 05:00 22 H 116/65 92 L 09/14/20 04:00 36.8 C 21 H 111/79 91 L 09/14/20 03:00 24 H 117/63 94 L - Problem List & Annotations (1) COVID-19 SNOMED Code(s): 324132173 Code(s): U07.1 - COVID-19 Status: Acute Current Visit: Yes (2) CAP (community acquired pneumonia) SNOMED Code(s): 024731282 Code(s): J18.9 - PNEUMONIA, UNSPECIFIED ORGANISM Status: Acute Current Visit: No (3) COPD (chronic obstructive pulmonary disease) case management patient SNOMED Code(s): 132523526, 119650065, 741009405 Code(s): FAQ3771 - Status: Acute Priority: High Current Visit: No (4) Chronic pain disorder SNOMED Code(s): 993473839 Code(s): G89.4 - CHRONIC PAIN SYNDROME Status: Acute Current Visit: No (5) Acute respiratory failure with hypoxia SNOMED Code(s): 45183110, 759897518 Code(s): J96.01 - ACUTE RESPIRATORY FAILURE WITH HYPOXIA Status: Acute Current Visit: Yes - Problem List Review Problem List Initiated/Reviewed/Updated: Yes - My Orders Last 24 Hours: My Active Orders 09/14/20 14:19 MAGNESIUM [CHEM] Routine PHOSPHORUS [CHEM] Routine 09/14/20 14:22 Echo Comp wo Cont [US] Routine 09/14/20 14:24 Furosemide [Lasix] 20 mg IVPUSH NOW ONE - Plan Plan:: 75-year-old gentleman admitted for hypoxic respiratory failure secondary to worsening Covid pneumonia. 1. Hypoxic respiratory failure secondary to worsening over pneumonia: currently on BiPAP, tolerating it well Chest x-ray yesterday: Worsening pneumonia CTA has ruled out PE Antibiotics: cont IV vancomycin, continue with 2 g cefepime, doxycycline 100 mg IV twice daily Blood culture and sputum culture pending, will adjust antibiotics accordingly Remdesivir 100 IV; we will continue to monitor LFTs DuoNebs every 4 hours Solu-Medrol 125 switch to once a day per eICU recommendations which are very much appreciated DVT prophylaxis Lovenox 40 subcu every 24 Incentive spirometry Acapella -Patient is DNR/DNI now, wants to transition to comfort care if his status gets worse, also wants to "get his affairs in order" before that. 2. PRAFUL: Resolved BUN 40, creatinine 1.2, continue to monitor with a.m. CMP, Avoid nephrotoxic agents 3. Hypertensive/bradycardic: Held morning dose of metoprolol and lisinopril, will continue to monitor and resume accordingly Past medical history of COPD, coronary artery disease, PAD, hyperlipidemia; resumed home medications DVT prophylaxis Lovenox subcu 40, GI prophylaxis 40 pantoprazole, up with assistance, heart healthy diet
[2020-09-14] MEDS: Enoxaparin 40 MG/0.4 ML Syringe SUBCUT SCH (18:14)
[2020-09-14] MEDS: REMDESIVIR 100 MG in Sodium Chloride 0.9% 100 ML IV SCH (20:20)
[2020-09-14] MEDS: Pravastatin 40 MG Tab PO SCH (20:24)
[2020-09-14] MEDS: Pantoprazole 40 MG in Sodium Chloride 0.9% 10 ML IV SCH (22:06)
--- NOTE | 2020-09-14 23:22 | PCM.SN.2 ---
- Free Text/Narrative Note: Patient reiterated his DNR/DNI wishes to me this AM, states he " just wants to be comfortable and left in peace" patient lost his periphral IV, several attempts were made to re-establish IV line but unfortunately they were no successful, patient is refusing further IV line attempts. I did discuss with patient about central line but once the procedure was explained he refused it given its invasive. Patients dung Dean was informed in detail about the events, she and rest of the family are having a family discussion about goals of care in AM. Since patient is refusing IV, will not be able to administer remdesivir, will switch antibiotics and steroids to Oral for now. Ariella roland
[2020-09-15] MEDS: Linezolid 600 MG Tab PO SCH ×3 (00:08→23:19)
[2020-09-15] MEDS: Levofloxacin 250 MG Tab PO SCH ×2 (00:08→23:19)
[2020-09-15] MEDS: Cefdinir 300 MG Cap PO SCH ×3 (00:08→20:45)
[2020-09-15] MEDS: Gabapentin 300 MG Cap PO SCH ×3 (06:27→22:13)
[2020-09-15] MEDS: Pantoprazole 40 MG Tab.CR PO SCH ×2 (06:37→16:42)
[2020-09-15] MEDS: Lisinopril 5 MG Tab PO SCH (08:02)
[2020-09-15] MEDS: predniSONE 20 MG Tab PO SCH ×2 (08:03→20:45)
[2020-09-15] MEDS: Budesonide/Formoterol 160-4.5 MCG/Puff 6 GM Inhaler INH SCH ×2 (08:05→20:46)
[2020-09-15] MEDS: Acetaminophen 325 MG Tab PO PRN (08:35)
[2020-09-15] MEDS: Metoprolol Tartrate 25 MG Tab PO SCH ×2 (08:38→20:45)
--- NOTE | 2020-09-15 13:06 | PCM.PN ---
- General Info Date of Service: 09/15/20 Admission Dx/Problem (Free Text): Admission Diagnosis/Problem Admission Diagnosis/Problem Hypoxia Subjective Update: Patient resting comfortably. on BIPAP, has refused labs this AM. I did try to wean him off the BiPAP, on high flow NC which he tolerated well for some time, but later it gave him a headache so he requested to be put back on BIPAP. Patient doesn't have IV established yet, nurse will attempt another. Patient agreeable today to let us try IV again. I had a very long face time conference with Dianne gamez) in patient room about goals of care. Family doesn't seem to be on the same page with each other, patients isnt keen on aggressive care, he feels "is it worth it" but at the same time isnt clear about transitioning to comfort measures. At the point since patient is doing slightly better, i would hold off any comfort measures, we will try to get IV and restart Remdesivir. - Review of Systems General: Reports: Weakness, Fatigue. Denies: Malaise, Chills Pulmonary: Reports: Shortness of Breath, Cough, Sputum Cardiovascular: Denies: Chest Pain, Palpitations Gastrointestinal: Reports: Abdominal Pain. Denies: Constipation, Decreased Appetite, Diarrhea Genitourinary: Denies: Dysuria, Frequency, Burning Musculoskeletal: Denies: Neck Pain, Shoulder Pain, Arm Pain Skin: Denies: Cyanosis, Jaundice, Mottled, Pallor Neurological: Denies: Confusion, Dizziness, Headache - Patient Data Vitals - Most Recent: Last Vital Signs Temp 35.5 C L 09/15/20 08:00 Pulse 52 L 09/15/20 08:38 Resp 21 H 09/15/20 11:00 BP 140/79 09/15/20 11:00 Pulse Ox 90 L 09/15/20 11:00 Weight - Most Recent: 113.171 kg I&O - Last 24 Hours: Intake & Output 09/14/20 09/15/20 09/15/20 22:59 06:59 14:59 Intake Total 700 1200 Output Total 900 1840 Balance -200 -640 Lab Results Last 24 Hours: Laboratory Results - last 24 hr 09/14/20 09/14/20 Range/Units 07:00 07:00 Sodium 140 (136-148) mmol/L Potassium 4.9 (3.5-5.1) mmol/L Chloride 105 (98-107) mmol/L Carbon Dioxide 21.9 (21.0-32.0) mmol/L BUN 42 H (7.0-18.0) mg/dL Creatinine 1.3 (0.8-1.3) mg/dL Est Cr Clr Drug Dosing 54.63 mL/min Estimated GFR (MDRD) 53.7 ml/min Glucose 191 H (74-106) mg/dL Calcium 8.4 L (8.5-10.1) mg/dL Phosphorus 3.3 (2.6-4.7) mg/dL Magnesium 2.6 H (1.8-2.4) mg/dL Total Bilirubin 0.3 (0.2-1.0) mg/dL AST 78 H (15-37) IU/L ALT 23 (14-63) IU/L Alkaline Phosphatase 87 (46-116) U/L Total Protein 6.4 (6.4-8.2) g/dL Albumin 2.5 L (3.4-5.0) g/dL Globulin 3.9 (2.6-4.0) g/dL Albumin/Globulin Ratio 0.6 L (0.9-1.6) Zaheer Results Last 24 Hours: Microbiology 09/12/20 20:30 MRSA Culture - Final Nares, Unspecified NO MRSA ISOLATED 09/11/20 18:15 Aerobic Blood Culture - Preliminary Blood - Venous - Lab Draw NO GROWTH AFTER 3 DAYS Anaerobic Blood Culture - Final 09/11/20 18:10 Aerobic Blood Culture - Preliminary Blood - Venous NO GROWTH AFTER 3 DAYS Anaerobic Blood Culture - Preliminary NO GROWTH AFTER 3 DAYS 09/12/20 10:40 Gram Stain - Final Sputum - Expectorated Sputum Culture - Preliminary Med Orders - Current: Current Medications Acetaminophen (Tylenol) 650 mg PO Q4H PRN PRN Reason: Pain (Mild 1-3)/fever Last Admin: 09/15/20 08:35 Dose: 650 mg Documented by: Albuterol/Ipratropium (Duoneb 3.0-0.5 Mg/3 Ml) 3 ml NEB Q4HRRT PRN PRN Reason: Shortness Of Breath/wheezing Last Admin: 09/12/20 10:36 Dose: 3 ml Documented by: Cefdinir (Omnicef) 300 mg PO BID [facility] Last Admin: 09/15/20 08:02 Dose: 300 mg Documented by: Enoxaparin Sodium (Lovenox) 40 mg SUBCUT Q24H [facility] Last Admin: 09/14/20 18:14 Dose: 40 mg Documented by: Gabapentin (Neurontin) 600 mg PO TID [facility] Last Admin: 09/15/20 06:27 Dose: 600 mg Documented by: Levofloxacin (Levaquin) 750 mg PO Q24H [facility] Last Admin: 09/15/20 00:08 Dose: 750 mg Documented by: Linezolid (Zyvox) 600 mg PO Q12H [facility] Last Admin: 09/15/20 00:08 Dose: 600 mg Documented by: Lisinopril (Prinivil) 5 mg PO DAILY [facility] Last Admin: 09/15/20 08:02 Dose: 5 mg Documented by: Metoprolol Tartrate (Lopressor) 12.5 mg PO BID [facility] Last Admin: 09/15/20 08:38 Dose: Not Given Documented by: Ondansetron HCl (Zofran Odt) 4 mg PO Q4H PRN PRN Reason: nausea, able to take PO Pantoprazole Sodium (Protonix) 40 mg PO BIDAC [facility] Last Admin: 09/15/20 06:37 Dose: 40 mg Documented by: Budesonide/Formoterol 160-4.5 Mcg/Puff 6 Gm Inhaler 2 each INH BID [facility] Last Admin: 09/15/20 08:05 Dose: Not Given Documented by: Pravastatin Sodium (Pravachol) 20 mg PO BEDTIME [facility] Last Admin: 09/14/20 20:24 Dose: 20 mg Documented by: Prednisone (Prednisone) 40 mg PO BID [facility] Last Admin: 09/15/20 08:03 Dose: 40 mg Documented by: Discontinued Medications Furosemide (Lasix) 20 mg IVPUSH NOW ONE Stop: 09/14/20 14:25 Last Admin: 09/14/20 20:19 Dose: Not Given Documented by: Remdesivir 200 mg/ Sodium (Chloride) 250 mls @ 250 mls/hr IV ONETIME ONE Stop: 09/11/20 17:08 Last Admin: 09/11/20 20:36 Dose: 250 mls/hr Documented by: Cefepime HCl 2 gm/ Premix 50 mls @ 100 mls/hr IV Q8H [facility] Last Admin: 09/13/20 11:39 Dose: 100 mls/hr Documented by: Doxycycline Hyclate 100 mg/ (Sodium Chloride) 100 mls @ 100 mls/hr IV Q12H [facility] Stop: 09/18/20 17:31 Last Admin: 09/11/20 22:52 Dose: Not Given Documented by: Remdesivir 100 mg/ Sodium (Chloride) 100 mls @ 100 mls/hr IV Q24H [facility] Stop: 09/15/20 18:44 Last Admin: 09/14/20 20:20 Dose: Not Given Documented by: Pantoprazole Sodium 40 mg/ (Sodium Chloride) 10 mls @ 300 mls/hr IV Q24H [facility] Last Admin: 09/11/20 23:00 Dose: Not Given Documented by: Doxycycline Hyclate 100 mg/ (Sodium Chloride) 100 mls @ 100 mls/hr IV Q12H [facility] Last Admin: 09/11/20 22:52 Dose: 100 mls/hr Documented by: Pantoprazole Sodium 40 mg/ (Sodium Chloride) 10 mls @ 300 mls/hr IV Q24H [facility] Last Admin: 09/14/20 22:06 Dose: Not Given Documented by: Doxycycline Hyclate 100 mg/ (Sodium Chloride) 100 mls @ 100 mls/hr IV Q12H [facility] Last Admin: 09/14/20 22:06 Dose: Not Given Documented by: Vancomycin HCl 1.75 gm/ Premix 350 mls @ 175 mls/hr IV Q12H [facility] Last Admin: 09/14/20 11:01 Dose: Not Given Documented by: Cefepime HCl 2 gm/ Premix 50 mls @ 100 mls/hr IV Q8H [facility] Last Admin: 09/14/20 20:24 Dose: Not Given Documented by: Vancomycin HCl 1.75 gm/ Premix 350 mls @ 175 mls/hr IV Q12H [facility] Last Admin: 09/14/20 22:59 Dose: Not Given Documented by: Iopamidol (Isovue Multipack-370 (76%)) 100 ml IVPUSH ONETIME ONE Stop: 09/11/20 19:31 Last Admin: 09/11/20 19:31 Dose: 100 ml Documented by: Methylprednisolone Sodium Succinate (Solu-Medrol) 125 mg IM ONETIME ONE Stop: 09/11/20 17:16 Last Admin: 09/11/20 22:50 Dose: 125 mg Documented by: Methylprednisolone Sodium Succinate (Solu-Medrol) 125 mg IM BID [facility] Last Admin: 09/12/20 08:28 Dose: 125 mg Documented by: Methylprednisolone Sodium Succinate (Solu-Medrol) 125 mg IM ONETIME ONE Stop: 09/11/20 22:01 Last Admin: 09/11/20 22:51 Dose: Not Given Documented by: Methylprednisolone Sodium Succinate (Solu-Medrol) 125 mg IVPUSH Q12H [facility] Last Admin: 09/13/20 09:26 Dose: 125 mg Documented by: Methylprednisolone Sodium Succinate (Solu-Medrol) 125 mg IVPUSH DAILY [facility] Last Admin: 09/14/20 09:55 Dose: 125 mg Documented by: Metoprolol Tartrate (Lopressor) 25 mg PO BID [facility] Last Admin: 09/14/20 10:59 Dose: Not Given Documented by: Non-Formulary Medication (Gabapentin) 600 mg PO TID [facility] Last Admin: 09/11/20 23:51 Dose: Not Given Documented by: Non-Formulary Medication (Pravastatin) 20 mg PO BEDTIME [facility] Last Admin: 09/11/20 23:52 Dose: Not Given Documented by: - Exam Quality Assessment: Supplemental Oxygen General: Alert, Oriented, Moderate Distress Lungs: Decreased Breath Sounds, Crackles Cardiovascular: Regular Rate, Regular Rhythm GI/Abdominal Exam: Normal Bowel Sounds, Soft, Non-Tender, Distended Extremities: Normal Inspection, Normal Range of Motion Sepsis Event Note - Evaluation Sepsis Screening Result: Severe Sepsis Risk - Focused Exam Vital Signs: Vital Signs Temp Pulse Resp BP BP Pulse Ox 09/15/20 11:00 21 H 140/79 90 L 09/15/20 10:00 20 142/60 H 97 09/15/20 09:00 19 143/62 H 94 L 09/15/20 08:38 52 L 09/15/20 08:02 133/87 09/15/20 08:00 35.5 C L 22 H 133/87 97 09/15/20 07:00 23 H 139/72 95 09/15/20 06:00 22 H 131/75 94 L 09/15/20 05:00 22 H 130/81 92 L 09/15/20 04:00 36.3 C 18 111/78 95 09/15/20 03:00 20 122/69 96 09/15/20 02:00 14 124/70 94 L 09/15/20 01:00 13 108/68 93 L - Problem List & Annotations (1) COVID-19 SNOMED Code(s): 415315484 Code(s): U07.1 - COVID-19 Status: Acute Current Visit: Yes (2) CAP (community acquired pneumonia) SNOMED Code(s): 418942867 Code(s): J18.9 - PNEUMONIA, UNSPECIFIED ORGANISM Status: Acute Current Visit: No (3) COPD (chronic obstructive pulmonary disease) case management patient SNOMED Code(s): 970447598, 974962836, 158272675 Code(s): QEB7686 - Status: Acute Priority: High Current Visit: No (4) Chronic pain disorder SNOMED Code(s): 834849094 Code(s): G89.4 - CHRONIC PAIN SYNDROME Status: Acute Current Visit: No (5) Acute respiratory failure with hypoxia SNOMED Code(s): 63351319, 512598004 Code(s): J96.01 - ACUTE RESPIRATORY FAILURE WITH HYPOXIA Status: Acute Current Visit: Yes - Problem List Review Problem List Initiated/Reviewed/Updated: Yes - My Orders Last 24 Hours: My Active Orders 09/14/20 21:00 Metoprolol Tartrate [Lopressor] 12.5 mg PO BID 09/14/20 23:45 Cefdinir [Omnicef] 300 mg PO BID Linezolid [Zyvox] 600 mg PO Q12H levoFLOXacin [Levaquin] 750 mg PO Q24H 09/15/20 07:30 Pantoprazole [ProTONIX] 40 mg PO BIDAC 09/15/20 09:00 predniSONE 40 mg PO BID 09/15/20 14:22 Echo Comp wo Cont [US] Routine 09/16/20 05:11 MAGNESIUM [CHEM] AM PHOSPHORUS [CHEM] AM 09/17/20 05:11 MAGNESIUM [CHEM] AM - Plan Plan:: 75-year-old gentleman admitted for hypoxic respiratory failure secondary to worsening Covid pneumonia. 1. Hypoxic respiratory failure secondary to worsening over pneumonia: currently on high flow, tolerating it well for some time and later requested BIPAP CTA has ruled out PE Antibiotics: no IV for now, so will cont po ANTIBIOTICS Blood culture and sputum culture pending, will adjust antibiotics accordingly Remdesivir 100 IV; ON HOLD FOR NOW, till IV is reestablished DuoNebs every 4 hours PO steroids DVT prophylaxis Lovenox 40 subcu every 24 Incentive spirometry Acapella -Patient is DNR/DNI now. 2. PRAFUL: Resolved - Awaiting labs for today 3. Hypertensive/bradycardic: decreased dose of metoprolol,this AM dose was held, cont lisinopril, will continue to monitor and resume accordingly Past medical history of COPD, coronary artery disease, PAD, hyperlipidemia; resumed home medications DVT prophylaxis Lovenox subcu 40, GI prophylaxis 40 pantoprazole, up with assistance, heart healthy diet
[2020-09-15] MEDS ORDERED: LORazepam 2 MG/ML SDV ONE (14:25)
[2020-09-15] MEDS: Albuterol/Ipratropium 3.0-0.5 MG/3 ML Neb Soln NEB PRN (15:15)
[2020-09-15] MEDS ORDERED: LORazepam 2 MG/ML SDV IVPUSH ONE (15:25)
--- NOTE | 2020-09-15 15:33 | PCM.PRNOTE ---
- Free Text/Narrative Note: Peripheral IV line successfully place by me in right upper basilic vein using US guidance. Patient tolerated it well.
[2020-09-15] MEDS: REMDESIVIR 100 MG in Sodium Chloride 0.9% 100 ML IV SCH (16:41)
[2020-09-15] MEDS: Enoxaparin 40 MG/0.4 ML Syringe SUBCUT SCH (16:42)
[2020-09-15] MEDS: Pravastatin 40 MG Tab PO SCH (20:45)
[2020-09-16] MEDS: Gabapentin 300 MG Cap PO SCH ×3 (05:45→21:58)
[2020-09-16] MEDS: Pantoprazole 40 MG Tab.CR PO SCH ×2 (06:38→16:57)
[2020-09-16] MEDS: Ondansetron 4 MG Tab.DIS PO PRN (07:40)
[2020-09-16 08:30] LABS: BLOOD UREA NITROGEN,BUN 27 mg/dL (7.0-18.0); CARBON DIOXIDE,CO2 25.6 mmol/L (21.0-32.0); CHLORIDE,CL 104 mmol/L (98-107); GLUCOSE RANDOM 192 mg/dL (74-106); POTASSIUM,K 4.7 mmol/L (3.5-5.1); SODIUM,NA 140 mmol/L (136-148)
[2020-09-16] MEDS: Cefdinir 300 MG Cap PO SCH ×2 (09:14→21:35)
[2020-09-16] MEDS: Lisinopril 5 MG Tab PO SCH (09:14)
[2020-09-16] MEDS: predniSONE 20 MG Tab PO SCH ×2 (09:14→21:35)
[2020-09-16] MEDS: Metoprolol Tartrate 25 MG Tab PO SCH ×2 (09:15→21:35)
[2020-09-16] MEDS: Budesonide/Formoterol 160-4.5 MCG/Puff 6 GM Inhaler INH SCH ×2 (10:12→21:04)
[2020-09-16] MEDS ORDERED: Phosphorus #1 250 MG Tab PO ONE (11:02)
--- NOTE | 2020-09-16 11:15 | PCM.PN ---
- General Info Date of Service: 09/16/20 Admission Dx/Problem (Free Text): Admission Diagnosis/Problem Admission Diagnosis/Problem Hypoxia Subjective Update: Patient resting comfortably. on BIPAP, Fi02 60% which has improved from 80%, tolerating high flow as well, no chest pain, n/v . Functional Status: Reports: Tolerating Diet, Urinating. Denies: Ambulating - Review of Systems General: Reports: Weakness, Fatigue, Malaise. Denies: Fever Pulmonary: Reports: Shortness of Breath, Cough, Sputum Cardiovascular: Reports: Dyspnea on Exertion. Denies: Chest Pain, Palpitations Gastrointestinal: Denies: Abdominal Pain, Constipation, Decreased Appetite Genitourinary: Denies: Dysuria, Frequency, Burning, Pain Musculoskeletal: Denies: Neck Pain, Shoulder Pain, Arm Pain Skin: Denies: Cyanosis, Jaundice, Mottled, Diaphoresis Neurological: Denies: Headache, Numbness Psychiatric: Reports: Anxiety. Denies: Confusion, Agitation, Suicidal Ideation, Homicidal Ideation - Patient Data Vitals - Most Recent: Last Vital Signs Temp 36.4 C 09/16/20 10:00 Pulse 75 09/16/20 09:15 Resp 20 09/16/20 10:00 BP 121/57 L 09/16/20 10:00 Pulse Ox 89 L 09/16/20 10:00 Weight - Most Recent: 113.912 kg I&O - Last 24 Hours: Intake & Output 09/15/20 09/16/20 09/16/20 22:59 06:59 14:59 Intake Total 900 720 Output Total 500 880 Balance 400 -160 Lab Results Last 24 Hours: Laboratory Results - last 24 hr 09/16/20 09/16/20 Range/Units 07:54 07:54 WBC 15.64 H (4.0-11.0) K/uL RBC 5.16 (4.50-5.90) M/uL Hgb 15.5 (13.0-17.0) g/dL Hct 48.1 (38.0-50.0) % MCV 93.2 (80.0-98.0) fL MCH 30.0 (27.0-32.0) pg MCHC 32.2 (31.0-37.0) g/dL RDW Std Deviation 48.2 (28.0-62.0) fl RDW Coeff of Sheab 14 (11.0-15.0) % Plt Count 295 (150-400) K/uL MPV 11.00 (7.40-12.00) fL Neut % (Auto) 81.4 H (48.0-80.0) % Lymph % (Auto) 9.1 L (16.0-40.0) % [place] % (Auto) 9.0 (0.0-15.0) % Eos % (Auto) 0.0 (0.0-7.0) % Baso % (Auto) 0.5 (0.0-1.5) % Neut # (Auto) 12.7 H (1.4-5.7) K/uL Lymph # (Auto) 1.4 (0.6-2.4) K/uL [place] # (Auto) 1.4 H (0.0-0.8) K/uL Eos # (Auto) 0.0 (0.0-0.7) K/uL Baso # (Auto) 0.1 (0.0-0.1) K/uL Nucleated RBC % 0.0 /100WBC Nucleated RBCs # 0 K/uL Sodium 140 (136-148) mmol/L Potassium 4.7 (3.5-5.1) mmol/L Chloride 104 (98-107) mmol/L Carbon Dioxide 25.6 (21.0-32.0) mmol/L BUN 27 H (7.0-18.0) mg/dL Creatinine 0.9 (0.8-1.3) mg/dL Est Cr Clr Drug Dosing 78.91 mL/min Estimated GFR (MDRD) > 60.0 ml/min Glucose 192 H (74-106) mg/dL Calcium 8.8 (8.5-10.1) mg/dL Phosphorus 2.4 L (2.6-4.7) mg/dL Magnesium 2.1 (1.8-2.4) mg/dL Total Bilirubin 0.5 (0.2-1.0) mg/dL AST 50 H (15-37) IU/L ALT 22 (14-63) IU/L Alkaline Phosphatase 94 (46-116) U/L Total Protein 6.5 (6.4-8.2) g/dL Albumin 2.7 L (3.4-5.0) g/dL Globulin 3.8 (2.6-4.0) g/dL Albumin/Globulin Ratio 0.7 L (0.9-1.6) Zaheer Results Last 24 Hours: Microbiology 09/12/20 10:40 Gram Stain - Final Sputum - Expectorated Sputum Culture - Final A Baumannii/Haemolyticus Normal Respiratory [place] YE[place] 09/11/20 18:15 Aerobic Blood Culture - Preliminary Blood - Venous - Lab Draw NO GROWTH AFTER 4 DAYS Anaerobic Blood Culture - Final 09/11/20 18:10 Aerobic Blood Culture - Preliminary Blood - Venous NO GROWTH AFTER 4 DAYS Anaerobic Blood Culture - Preliminary NO GROWTH AFTER 4 DAYS 09/12/20 20:30 MRSA Culture - Final Nares, Unspecified NO MRSA ISOLATED Med Orders - Current: Current Medications Acetaminophen (Tylenol) 650 mg PO Q4H PRN PRN Reason: Pain (Mild 1-3)/fever Last Admin: 09/15/20 08:35 Dose: 650 mg Documented by: Albuterol/Ipratropium (Duoneb 3.0-0.5 Mg/3 Ml) 3 ml NEB Q4HRRT PRN PRN Reason: Shortness Of Breath/wheezing Last Admin: 09/15/20 15:15 Dose: 3 ml Documented by: Cefdinir (Omnicef) 300 mg PO BID [facility] Last Admin: 09/16/20 09:14 Dose: 300 mg Documented by: Enoxaparin Sodium (Lovenox) 40 mg SUBCUT Q24H [facility] Last Admin: 09/15/20 16:42 Dose: 40 mg Documented by: Furosemide (Lasix) 20 mg IVPUSH ONETIME ONE Stop: 09/16/20 12:01 Gabapentin (Neurontin) 600 mg PO TID [facility] Last Admin: 09/16/20 05:45 Dose: 600 mg Documented by: Remdesivir 100 mg/ Sodium (Chloride) 100 mls @ 100 mls/hr IV Q24H [facility] Stop: 09/16/20 16:59 Last Admin: 09/15/20 16:41 Dose: 100 mls/hr Documented by: Levofloxacin (Levaquin) 750 mg PO Q24H [facility] Last Admin: 09/15/20 23:19 Dose: 750 mg Documented by: Linezolid (Zyvox) 600 mg PO Q12H [facility] Last Admin: 09/15/20 23:19 Dose: 600 mg Documented by: Lisinopril (Prinivil) 5 mg PO DAILY [facility] Last Admin: 09/16/20 09:14 Dose: 5 mg Documented by: Metoprolol Tartrate (Lopressor) 12.5 mg PO BID [facility] Last Admin: 09/16/20 09:15 Dose: 12.5 mg Documented by: Ondansetron HCl (Zofran Odt) 4 mg PO Q4H PRN PRN Reason: nausea, able to take PO Last Admin: 09/16/20 07:40 Dose: 4 mg Documented by: Pantoprazole Sodium (Protonix) 40 mg PO BIDAC [facility] Last Admin: 09/16/20 06:38 Dose: 40 mg Documented by: Budesonide/Formoterol 160-4.5 Mcg/Puff 6 Gm Inhaler 2 each INH BID [facility] Last Admin: 09/16/20 10:12 Dose: Not Given Documented by: Pravastatin Sodium (Pravachol) 20 mg PO BEDTIME [facility] Last Admin: 09/15/20 20:45 Dose: 20 mg Documented by: Prednisone (Prednisone) 40 mg PO BID [facility] Last Admin: 09/16/20 09:14 Dose: 40 mg Documented by: Discontinued Medications Furosemide (Lasix) 20 mg IVPUSH NOW ONE Stop: 09/14/20 14:25 Last Admin: 09/14/20 20:19 Dose: Not Given Documented by: Remdesivir 200 mg/ Sodium (Chloride) 250 mls @ 250 mls/hr IV ONETIME ONE Stop: 09/11/20 17:08 Last Admin: 09/11/20 20:36 Dose: 250 mls/hr Documented by: Cefepime HCl 2 gm/ Premix 50 mls @ 100 mls/hr IV Q8H [facility] Last Admin: 09/13/20 11:39 Dose: 100 mls/hr Documented by: Doxycycline Hyclate 100 mg/ (Sodium Chloride) 100 mls @ 100 mls/hr IV Q12H [facility] Stop: 09/18/20 17:31 Last Admin: 09/11/20 22:52 Dose: Not Given Documented by: Remdesivir 100 mg/ Sodium (Chloride) 100 mls @ 100 mls/hr IV Q24H [facility] Stop: 09/15/20 18:44 Last Admin: 09/14/20 20:20 Dose: Not Given Documented by: Pantoprazole Sodium 40 mg/ (Sodium Chloride) 10 mls @ 300 mls/hr IV Q24H [facility] Last Admin: 09/11/20 23:00 Dose: Not Given Documented by: Doxycycline Hyclate 100 mg/ (Sodium Chloride) 100 mls @ 100 mls/hr IV Q12H [facility] Last Admin: 09/11/20 22:52 Dose: 100 mls/hr Documented by: Pantoprazole Sodium 40 mg/ (Sodium Chloride) 10 mls @ 300 mls/hr IV Q24H [facility] Last Admin: 09/14/20 22:06 Dose: Not Given Documented by: Doxycycline Hyclate 100 mg/ (Sodium Chloride) 100 mls @ 100 mls/hr IV Q12H [facility] Last Admin: 09/14/20 22:06 Dose: Not Given Documented by: Vancomycin HCl 1.75 gm/ Premix 350 mls @ 175 mls/hr IV Q12H [facility] Last Admin: 09/14/20 11:01 Dose: Not Given Documented by: Cefepime HCl 2 gm/ Premix 50 mls @ 100 mls/hr IV Q8H [facility] Last Admin: 09/14/20 20:24 Dose: Not Given Documented by: Vancomycin HCl 1.75 gm/ Premix 350 mls @ 175 mls/hr IV Q12H [facility] Last Admin: 09/14/20 22:59 Dose: Not Given Documented by: Iopamidol (Isovue Multipack-370 (76%)) 100 ml IVPUSH ONETIME ONE Stop: 09/11/20 19:31 Last Admin: 09/11/20 19:31 Dose: 100 ml Documented by: Lorazepam (Ativan) Confirm Administered Dose 2 mg .ROUTE .STK-MED ONE Stop: 09/15/20 14:26 Last Admin: 09/15/20 15:28 Dose: 1 mg Documented by: Lorazepam (Ativan) 1 mg IVPUSH ONETIME ONE Stop: 09/15/20 15:26 Last Admin: 09/15/20 19:00 Dose: Not Given Documented by: Methylprednisolone Sodium Succinate (Solu-Medrol) 125 mg IM ONETIME ONE Stop: 09/11/20 17:16 Last Admin: 09/11/20 22:50 Dose: 125 mg Documented by: Methylprednisolone Sodium Succinate (Solu-Medrol) 125 mg IM BID [facility] Last Admin: 09/12/20 08:28 Dose: 125 mg Documented by: Methylprednisolone Sodium Succinate (Solu-Medrol) 125 mg IM ONETIME ONE Stop: 09/11/20 22:01 Last Admin: 09/11/20 22:51 Dose: Not Given Documented by: Methylprednisolone Sodium Succinate (Solu-Medrol) 125 mg IVPUSH Q12H [facility] Last Admin: 09/13/20 09:26 Dose: 125 mg Documented by: Methylprednisolone Sodium Succinate (Solu-Medrol) 125 mg IVPUSH DAILY [facility] Last Admin: 09/14/20 09:55 Dose: 125 mg Documented by: Metoprolol Tartrate (Lopressor) 25 mg PO BID [facility] Last Admin: 09/14/20 10:59 Dose: Not Given Documented by: Non-Formulary Medication (Gabapentin) 600 mg PO TID [facility] Last Admin: 09/11/20 23:51 Dose: Not Given Documented by: Non-Formulary Medication (Pravastatin) 20 mg PO BEDTIME [facility] Last Admin: 09/11/20 23:52 Dose: Not Given Documented by: Sodium Phosphate (Neutra-Phos) 250 mg PO ONETIME ONE Stop: 09/16/20 11:03 - Exam Quality Assessment: Supplemental Oxygen General: Alert, Oriented Neck: Supple Lungs: Clear to Auscultation, Normal Respiratory Effort Cardiovascular: Regular Rate, Regular Rhythm GI/Abdominal Exam: Normal Bowel Sounds, Soft, Non-Tender Back Exam: Normal Inspection Extremities: Normal Inspection, Normal Range of Motion Sepsis Event Note - Evaluation Sepsis Screening Result: No Definite Risk - Focused Exam Vital Signs: Vital Signs Temp Pulse Resp BP BP Pulse Ox Pulse Ox 09/16/20 10:00 36.4 C 20 121/57 L 89 L 09/16/20 09:15 75 133/63 09/16/20 09:14 133/63 09/16/20 09:00 36.4 C 22 H 133/63 89 L 09/16/20 08:00 36.6 C 22 H 138/55 L 89 L 09/16/20 07:47 92 L 09/16/20 07:00 20 138/63 92 L 09/16/20 06:00 22 H 125/79 90 L 09/16/20 05:00 24 H 131/64 89 L 09/16/20 04:00 36.9 C 17 132/64 90 L 09/16/20 03:00 24 H 144/87 H 90 L 09/16/20 02:00 25 H 138/85 90 L 09/16/20 01:00 23 H 89 L 09/16/20 00:00 36.3 C 22 H 119/66 90 L - Problem List & Annotations (1) COVID-19 SNOMED Code(s): 799717366 Code(s): U07.1 - COVID-19 Status: Acute Current Visit: Yes (2) CAP (community acquired pneumonia) SNOMED Code(s): 485866998 Code(s): J18.9 - PNEUMONIA, UNSPECIFIED ORGANISM Status: Acute Current Visit: No (3) COPD (chronic obstructive pulmonary disease) case management patient SNOMED Code(s): 410619949, 969900017, 392268599 Code(s): FLS3975 - Status: Acute Priority: High Current Visit: No (4) Chronic pain disorder SNOMED Code(s): 617799081 Code(s): G89.4 - CHRONIC PAIN SYNDROME Status: Acute Current Visit: No (5) Acute respiratory failure with hypoxia SNOMED Code(s): 55559060, 102818741 Code(s): J96.01 - ACUTE RESPIRATORY FAILURE WITH HYPOXIA Status: Acute Current Visit: Yes - Problem List Review Problem List Initiated/Reviewed/Updated: Yes - My Orders Last 24 Hours: My Active Orders 09/15/20 14:22 Echo Comp wo Cont [US] Routine 09/17/20 05:11 CBC WITH AUTO DIFF [HEME] AM CMP [COMPREHENSIVE METABOLIC PN,CMP] [CHEM] AM MAGNESIUM [CHEM] AM PHOSPHORUS [CHEM] AM 09/18/20 05:11 CBC WITH AUTO DIFF [HEME] AM CMP [COMPREHENSIVE METABOLIC PN,CMP] [CHEM] AM MAGNESIUM [CHEM] AM PHOSPHORUS [CHEM] AM 09/19/20 05:11 CBC WITH AUTO DIFF [HEME] AM CMP [COMPREHENSIVE METABOLIC PN,CMP] [CHEM] AM MAGNESIUM [CHEM] AM PHOSPHORUS [CHEM] AM - Plan Plan:: 75-year-old gentleman admitted for hypoxic respiratory failure secondary to worsening Covid pneumonia. 1. Hypoxic respiratory failure secondary to worsening over pneumonia: currently on high flow, tolerating it well for some time and later requested BIPAP CTA has ruled out PE Antibiotics: cont PO antibiotics,cultures noted, wbc count up trending, likely steroids induced, as clinically patient is improving Remdesivir 100 IV; ON HOLD FOR NOW, till IV is reestablished DuoNebs every 4 hours PO steroids DVT prophylaxis Lovenox 40 subcu every 24 Incentive spirometry Acapella -Patient is DNR/DNI 2. PRAFUL: Resolved - Awaiting labs for today 3. Hypertensive/bradycardic: decreased dose of metoprolol,this AM dose was held, cont lisinopril, will continue to monitor and resume accordingly Past medical history of COPD, coronary artery disease, PAD, hyperlipidemia; resumed home medications DVT prophylaxis Lovenox subcu 40, GI prophylaxis 40 pantoprazole, up with assistance, heart healthy diet
[2020-09-16] MEDS ORDERED: Furosemide 20 MG/2 ML VIAL IVPUSH ONE (12:00)
[2020-09-16] MEDS: Linezolid 600 MG Tab PO SCH ×2 (12:22→23:18)
[2020-09-16] MEDS: Albuterol/Ipratropium 4 GM Inhalation Spray INH SCH ×2 (12:23→17:39)
[2020-09-16] MEDS ORDERED: Albuterol/Ipratropium 3.0-0.5 MG/3 ML Neb Soln NEB SCH (14:00)
[2020-09-16] MEDS: REMDESIVIR 100 MG in Sodium Chloride 0.9% 100 ML IV SCH (16:45)
[2020-09-16] MEDS: Enoxaparin 40 MG/0.4 ML Syringe SUBCUT SCH (16:57)
[2020-09-16] MEDS: Albuterol/Ipratropium 3.0-0.5 MG/3 ML Neb Soln NEB PRN ×2 (17:39→22:48)
[2020-09-16] MEDS: Pravastatin 40 MG Tab PO SCH (21:36)
[2020-09-16] MEDS ORDERED: LORazepam 2 MG/ML SDV IVPUSH ONE (21:37)
[2020-09-16] MEDS ORDERED: REMDESIVIR 100 MG in Sodium Chloride 0.9% 100 ML IV SCH (22:00)
[2020-09-16] MEDS: Levofloxacin 250 MG Tab PO SCH (23:18)
[2020-09-17] MEDS: Albuterol/Ipratropium 4 GM Inhalation Spray INH SCH ×5 (00:22→23:00)
[2020-09-17] MEDS ORDERED: LORazepam 2 MG/ML SDV IVPUSH ONE (03:34)
[2020-09-17 05:05] LABS: BLOOD UREA NITROGEN,BUN 28 mg/dL (7.0-18.0); CARBON DIOXIDE,CO2 28.5 mmol/L (21.0-32.0); CHLORIDE,CL 103 mmol/L (98-107); GLUCOSE RANDOM 225 mg/dL (74-106); SODIUM,NA 139 mmol/L (136-148)
[2020-09-17] MEDS: Gabapentin 300 MG Cap PO SCH ×3 (05:40→21:22)
[2020-09-17] MEDS: Pantoprazole 40 MG Tab.CR PO SCH ×2 (07:12→18:25)
[2020-09-17] MEDS: predniSONE 20 MG Tab PO SCH ×2 (09:13→20:39)
[2020-09-17] MEDS: Metoprolol Tartrate 25 MG Tab PO SCH ×2 (09:14→20:55)
[2020-09-17] MEDS: Budesonide/Formoterol 160-4.5 MCG/Puff 6 GM Inhaler INH SCH ×3 (09:16→20:39)
[2020-09-17] MEDS: Cefdinir 300 MG Cap PO SCH ×2 (09:16→20:39)
[2020-09-17] MEDS: Lisinopril 5 MG Tab PO SCH (09:16)
[2020-09-17] MEDS ORDERED: Furosemide 20 MG/2 ML VIAL IVPUSH ONE (10:45)
[2020-09-17] MEDS: Linezolid 600 MG Tab PO SCH ×2 (11:17→22:58)
--- NOTE | 2020-09-17 14:19 | PCM.PN ---
- General Info Date of Service: 09/17/20 Admission Dx/Problem (Free Text): Admission Diagnosis/Problem Admission Diagnosis/Problem Hypoxia Subjective Update: Patient resting comfortably. on tolerating high flow as well, no chest pain, n/v . Functional Status: Reports: Tolerating Diet, Urinating - Review of Systems General: Reports: Weakness, Fatigue, Malaise Pulmonary: Reports: Shortness of Breath. Denies: Pleuritic Chest Pain, Cough, Sputum Cardiovascular: Denies: Chest Pain, Palpitations, Dyspnea on Exertion Gastrointestinal: Denies: Abdominal Pain, Constipation, Decreased Appetite Genitourinary: Denies: Dysuria, Frequency, Burning Musculoskeletal: Denies: Neck Pain, Shoulder Pain, Arm Pain - Patient Data Vitals - Most Recent: Last Vital Signs Temp 36.2 C 09/17/20 12:00 Pulse 80 09/17/20 09:14 Resp 21 H 09/17/20 14:00 BP 131/95 H 09/17/20 14:00 Pulse Ox 87 L 09/17/20 14:00 Weight - Most Recent: 113.652 kg I&O - Last 24 Hours: Intake & Output 09/16/20 09/17/20 09/17/20 22:59 06:59 14:59 Intake Total 1540 640 Output Total 800 840 Balance 740 -200 Lab Results Last 24 Hours: Laboratory Results - last 24 hr 09/17/20 09/17/20 Range/Units 04:35 04:35 WBC 15.77 H (4.0-11.0) K/uL RBC 4.66 (4.50-5.90) M/uL Hgb 14.1 (13.0-17.0) g/dL Hct 43.7 (38.0-50.0) % MCV 93.8 (80.0-98.0) fL MCH 30.3 (27.0-32.0) pg MCHC 32.3 (31.0-37.0) g/dL RDW Std Deviation 49.2 (28.0-62.0) fl RDW Coeff of [place] 14 (11.0-15.0) % Plt Count 237 (150-400) K/uL MPV 10.50 (7.40-12.00) fL Add Manual Diff YES Neutrophils % (Manual) 92 H (48.0-80.0) % Lymphocytes % (Manual) 3 L (16.0-40.0) % Monocytes % (Manual) 5 (0.0-15.0) % Nucleated RBC % 0.0 /100WBC Absolute Seg Neuts 14.5 H (1.4-5.7) Lymphocytes # (Manual) 0.5 L (0.6-2.4) Monocytes # (Manual) 0.8 (0.0-0.8) Nucleated RBCs # 0 K/uL Sodium 139 (136-148) mmol/L Potassium 5.0 (3.5-5.1) mmol/L Chloride 103 (98-107) mmol/L Carbon Dioxide 28.5 (21.0-32.0) mmol/L BUN 28 H (7.0-18.0) mg/dL Creatinine 1.0 (0.8-1.3) mg/dL Est Cr Clr Drug Dosing 71.02 mL/min Estimated GFR (MDRD) > 60.0 ml/min Glucose 225 H (74-106) mg/dL Calcium 8.6 (8.5-10.1) mg/dL Phosphorus 3.0 (2.6-4.7) mg/dL Magnesium 1.9 (1.8-2.4) mg/dL Total Bilirubin 0.3 (0.2-1.0) mg/dL Direct Bilirubin 0.10 (0.0-0.5) mg/dL AST 30 (15-37) IU/L ALT 21 (14-63) IU/L Alkaline Phosphatase 89 (46-116) U/L Total Protein 5.9 L (6.4-8.2) g/dL Albumin 2.4 L (3.4-5.0) g/dL Globulin 3.5 (2.6-4.0) g/dL Albumin/Globulin Ratio 0.7 L (0.9-1.6) Zaheer Results Last 24 Hours: Microbiology 09/11/20 18:15 Aerobic Blood Culture - Final Blood - Venous - Lab Draw NO GROWTH AFTER 5 DAYS Anaerobic Blood Culture - Final 09/11/20 18:10 Aerobic Blood Culture - Final Blood - Venous NO GROWTH AFTER 5 DAYS Anaerobic Blood Culture - Final NO GROWTH AFTER 5 DAYS Med Orders - Current: Current Medications Acetaminophen (Tylenol) 650 mg PO Q4H PRN PRN Reason: Pain (Mild 1-3)/fever Last Admin: 09/15/20 08:35 Dose: 650 mg Documented by: Albuterol/Ipratropium (Duoneb 3.0-0.5 Mg/3 Ml) 3 ml NEB Q4HRRT PRN PRN Reason: dyspnea,wheezing Last Admin: 09/16/20 22:48 Dose: 3 ml Documented by: Albuterol/Ipratropium (Combivent Respimat) 0 gm INH QID [facility] Last Admin: 09/17/20 11:41 Dose: 1 puff Documented by: Budesonide/Formoterol Fumarate (Symbicort 160-4.5 Mcg) 0 gm INH BID [facility] Last Admin: 09/17/20 11:42 Dose: 1 puff Documented by: Cefdinir (Omnicef) 300 mg PO BID [facility] Last Admin: 09/17/20 09:16 Dose: 300 mg Documented by: Enoxaparin Sodium (Lovenox) 40 mg SUBCUT Q24H [facility] Last Admin: 09/16/20 16:57 Dose: 40 mg Documented by: Gabapentin (Neurontin) 600 mg PO TID [facility] Last Admin: 09/17/20 05:40 Dose: 600 mg Documented by: Remdesivir 100 mg/ Sodium (Chloride) 100 mls @ 100 mls/hr IV Q24H [facility] Stop: 09/18/20 16:59 Levofloxacin (Levaquin) 750 mg PO Q24H [facility] Last Admin: 09/16/20 23:18 Dose: 750 mg Documented by: Linezolid (Zyvox) 600 mg PO Q12H [facility] Last Admin: 09/17/20 11:17 Dose: 600 mg Documented by: Lisinopril (Prinivil) 5 mg PO DAILY [facility] Last Admin: 09/17/20 09:16 Dose: 5 mg Documented by: Metoprolol Tartrate (Lopressor) 12.5 mg PO BID [facility] Last Admin: 09/17/20 09:14 Dose: 12.5 mg Documented by: Ondansetron HCl (Zofran Odt) 4 mg PO Q4H PRN PRN Reason: nausea, able to take PO Last Admin: 09/16/20 07:40 Dose: 4 mg Documented by: [facility] Last Admin: 09/17/20 07:12 Dose: 40 mg Documented by: Pravastatin Sodium (Pravachol) 20 mg PO BEDTIME [facility] Last Admin: 09/16/20 21:36 Dose: 20 mg Documented by: Prednisone (Prednisone) 40 mg PO BID [facility] Last Admin: 09/17/20 09:13 Dose: 40 mg Documented by: Discontinued Medications Albuterol/Ipratropium (Duoneb 3.0-0.5 Mg/3 Ml) 3 ml NEB Q4HRRT PRN PRN Reason: Shortness Of Breath/wheezing Last Admin: 09/15/20 15:15 Dose: 3 ml Documented by: Albuterol/Ipratropium (Duoneb 3.0-0.5 Mg/3 Ml) 3 ml NEB Q4HRRT [facility] Furosemide (Lasix) 20 mg IVPUSH NOW ONE Stop: 09/14/20 14:25 Last Admin: 09/14/20 20:19 Dose: Not Given Documented by: Furosemide (Lasix) 20 mg IVPUSH ONETIME ONE Stop: 09/16/20 12:01 Last Admin: 09/16/20 12:23 Dose: 20 mg Documented by: Furosemide (Lasix) 20 mg IVPUSH NOW ONE Stop: 09/17/20 10:46 Last Admin: 09/17/20 11:17 Dose: 20 mg Documented by: Remdesivir 200 mg/ Sodium (Chloride) 250 mls @ 250 mls/hr IV ONETIME ONE Stop: 09/11/20 17:08 Last Admin: 09/11/20 20:36 Dose: 250 mls/hr Documented by: Cefepime HCl 2 gm/ Premix 50 mls @ 100 mls/hr IV Q8H [facility] Last Admin: 09/13/20 11:39 Dose: 100 mls/hr Documented by: Doxycycline Hyclate 100 mg/ (Sodium Chloride) 100 mls @ 100 mls/hr IV Q12H [facility] Stop: 09/18/20 17:31 Last Admin: 09/11/20 22:52 Dose: Not Given Documented by: Remdesivir 100 mg/ Sodium (Chloride) 100 mls @ 100 mls/hr IV Q24H [facility] Stop: 09/15/20 18:44 Last Admin: 09/14/20 20:20 Dose: Not Given Documented by: Pantoprazole Sodium 40 mg/ (Sodium Chloride) 10 mls @ 300 mls/hr IV Q24H [facility] Last Admin: 09/11/20 23:00 Dose: Not Given Documented by: Doxycycline Hyclate 100 mg/ (Sodium Chloride) 100 mls @ 100 mls/hr IV Q12H [facility] Last Admin: 09/11/20 22:52 Dose: 100 mls/hr Documented by: Pantoprazole Sodium 40 mg/ (Sodium Chloride) 10 mls @ 300 mls/hr IV Q24H [facility] Last Admin: 09/14/20 22:06 Dose: Not Given Documented by: Doxycycline Hyclate 100 mg/ (Sodium Chloride) 100 mls @ 100 mls/hr IV Q12H [facility] Last Admin: 09/14/20 22:06 Dose: Not Given Documented by: Vancomycin HCl 1.75 gm/ Premix 350 mls @ 175 mls/hr IV Q12H [facility] Last Admin: 09/14/20 11:01 Dose: Not Given Documented by: Cefepime HCl 2 gm/ Premix 50 mls @ 100 mls/hr IV Q8H [facility] Last Admin: 09/14/20 20:24 Dose: Not Given Documented by: Vancomycin HCl 1.75 gm/ Premix 350 mls @ 175 mls/hr IV Q12H [facility] Last Admin: 09/14/20 22:59 Dose: Not Given Documented by: Remdesivir 100 mg/ Sodium (Chloride) 100 mls @ 100 mls/hr IV Q24H [facility] Stop: 09/16/20 16:59 Last Admin: 09/16/20 16:45 Dose: 100 mls/hr Documented by: Remdesivir 100 mg/ Sodium (Chloride) 100 mls @ 100 mls/hr IV Q24H [facility] Stop: 09/17/20 22:59 Iopamidol (Isovue Multipack-370 (76%)) 100 ml IVPUSH ONETIME ONE Stop: 09/11/20 19:31 Last Admin: 09/11/20 19:31 Dose: 100 ml Documented by: Lorazepam (Ativan) Confirm Administered Dose 2 mg .ROUTE .STK-MED ONE Stop: 09/15/20 14:26 Last Admin: 09/15/20 15:28 Dose: 1 mg Documented by: Lorazepam (Ativan) 1 mg IVPUSH ONETIME ONE Stop: 09/15/20 15:26 Last Admin: 09/15/20 19:00 Dose: Not Given Documented by: Lorazepam (Ativan) 1 mg IVPUSH ONETIME ONE Stop: 09/16/20 21:38 Last Admin: 09/17/20 03:00 Dose: Not Given Documented by: Lorazepam (Ativan) 1 mg IVPUSH ONETIME ONE Stop: 09/17/20 03:35 Last Admin: 09/17/20 03:45 Dose: 1 mg Documented by: Methylprednisolone Sodium Succinate (Solu-Medrol) 125 mg IM ONETIME ONE Stop: 09/11/20 17:16 Last Admin: 09/11/20 22:50 Dose: 125 mg Documented by: Methylprednisolone Sodium Succinate (Solu-Medrol) 125 mg IM BID [facility] Last Admin: 09/12/20 08:28 Dose: 125 mg Documented by: Methylprednisolone Sodium Succinate (Solu-Medrol) 125 mg IM ONETIME ONE Stop: 09/11/20 22:01 Last Admin: 09/11/20 22:51 Dose: Not Given Documented by: Methylprednisolone Sodium Succinate (Solu-Medrol) 125 mg IVPUSH Q12H [facility] Last Admin: 09/13/20 09:26 Dose: 125 mg Documented by: Methylprednisolone Sodium Succinate (Solu-Medrol) 125 mg IVPUSH DAILY [facility] Last Admin: 09/14/20 09:55 Dose: 125 mg Documented by: Metoprolol Tartrate (Lopressor) 25 mg PO BID [facility] Last Admin: 09/14/20 10:59 Dose: Not Given Documented by: Non-Formulary Medication (Gabapentin) 600 mg PO TID [facility] Last Admin: 09/11/20 23:51 Dose: Not Given Documented by: Non-Formulary Medication (Pravastatin) 20 mg PO BEDTIME [facility] Last Admin: 09/11/20 23:52 Dose: Not Given Documented by: Budesonide/Formoterol 160-4.5 Mcg/Puff 6 Gm Inhaler 2 each INH BID [facility] Last Admin: 09/17/20 09:16 Dose: Not Given Documented by: Sodium Phosphate (Neutra-Phos) 250 mg PO ONETIME ONE Stop: 09/16/20 11:03 Last Admin: 09/16/20 12:21 Dose: 250 mg Documented by: - Exam Quality Assessment: Supplemental Oxygen General: Alert, Oriented, Cooperative Lungs: Decreased Breath Sounds, Crackles, Rales Cardiovascular: Regular Rate, Regular Rhythm GI/Abdominal Exam: Normal Bowel Sounds, Soft, Non-Tender Back Exam: Normal Inspection Extremities: Normal Inspection, Normal Range of Motion Sepsis Event Note - Evaluation Sepsis Screening Result: Severe Sepsis Risk - Focused Exam Vital Signs: Vital Signs Temp Pulse Resp BP BP Pulse Ox Pulse Ox 09/17/20 14:00 21 H 131/95 H 87 L 09/17/20 13:00 20 116/68 87 L 09/17/20 12:00 36.2 C 19 114/60 88 L 09/17/20 11:00 16 119/71 94 L 09/17/20 10:00 15 121/68 88 L 88 L 09/17/20 09:16 126/67 09/17/20 09:14 80 126/67 09/17/20 09:00 20 126/67 88 L 09/17/20 08:00 36.3 C 21 H 130/68 89 L 09/17/20 07:00 24 H 122/65 89 L 09/17/20 06:00 18 105/54 L 89 L 09/17/20 05:00 24 H 107/56 L 85 L 09/17/20 04:00 36.7 C 18 128/63 88 L 09/17/20 03:00 20 113/57 L 90 L - Problem List & Annotations (1) COVID-19 SNOMED Code(s): 110793641 Code(s): U07.1 - COVID-19 Status: Acute Current Visit: Yes (2) CAP (community acquired pneumonia) SNOMED Code(s): 236647119 Code(s): J18.9 - PNEUMONIA, UNSPECIFIED ORGANISM Status: Acute Current Visit: No (3) COPD (chronic obstructive pulmonary disease) case management patient SNOMED Code(s): 697445627, 964062852, 102390538 Code(s): XDR5541 - Status: Acute Priority: High Current Visit: No (4) Chronic pain disorder SNOMED Code(s): 081317533 Code(s): G89.4 - CHRONIC PAIN SYNDROME Status: Acute Current Visit: No (5) Acute respiratory failure with hypoxia SNOMED Code(s): 98607222, 747676307 Code(s): J96.01 - ACUTE RESPIRATORY FAILURE WITH HYPOXIA Status: Acute Current Visit: Yes - Problem List Review Problem List Initiated/Reviewed/Updated: Yes - My Orders Last 24 Hours: My Active Orders 09/17/20 10:10 RT Post Treatment Assessment [RC] Click to Edit RT Pre-Treatment Assessment [RC] Click to Edit 09/17/20 10:15 Budesonide/Formoterol [Symbicort 160-4.5 MCG] See Dose Instructions INH BID 09/17/20 16:00 Remdesivir 100 mg Sodium Chloride 0.9% [Normal Saline] 100 ml IV Q24H 09/18/20 05:11 CBC WITH AUTO DIFF [HEME] AM CMP [COMPREHENSIVE METABOLIC PN,CMP] [CHEM] AM MAGNESIUM [CHEM] AM PHOSPHORUS [CHEM] AM 09/19/20 05:11 CBC WITH AUTO DIFF [HEME] AM CMP [COMPREHENSIVE METABOLIC PN,CMP] [CHEM] AM MAGNESIUM [CHEM] AM PHOSPHORUS [CHEM] AM - Plan Plan:: 75-year-old gentleman admitted for hypoxic respiratory failure secondary to worsening Covid pneumonia. 1. Hypoxic respiratory failure secondary to worsening over pneumonia: currently on high flow, tolerating it well , may need intermittent BiPAP CTA has ruled out PE Antibiotics: cont PO antibiotics,cultures noted, wbc count up trending, likely steroids induced, as clinically patient is improving Remdesivir 100 IV; finished course DuoNebs every 4 hours PO steroids, switch to dexamethasone DVT prophylaxis Lovenox 40 subcu every 24 Incentive spirometry Acapella -Patient is DNR/DNI 2. PRAFUL: Resolved 3. Hypertensive/bradycardic: decreased dose of metoprolol,this AM dose was held, cont lisinopril, will continue to monitor and resume accordingly Past medical history of COPD, coronary artery disease, PAD, hyperlipidemia; resumed home medications DVT prophylaxis Lovenox subcu 40, GI prophylaxis 40 pantoprazole, up with assistance, heart healthy diet
[2020-09-17] MEDS ORDERED: REMDESIVIR 100 MG in Sodium Chloride 0.9% 100 ML IV SCH (16:00)
[2020-09-17] MEDS: Enoxaparin 40 MG/0.4 ML Syringe SUBCUT SCH (18:25)
[2020-09-17] MEDS: Pravastatin 40 MG Tab PO SCH (20:37)
[2020-09-17] MEDS: Levofloxacin 250 MG Tab PO SCH (22:58)
[2020-09-18] MEDS: Gabapentin 300 MG Cap PO SCH ×3 (05:13→21:15)
[2020-09-18] MEDS: Albuterol/Ipratropium 4 GM Inhalation Spray INH SCH ×4 (05:18→23:25)
[2020-09-18 06:45] LABS: BLOOD UREA NITROGEN,BUN 25 mg/dL (7.0-18.0); CARBON DIOXIDE,CO2 26.6 mmol/L (21.0-32.0); CHLORIDE,CL 102 mmol/L (98-107); GLUCOSE RANDOM 259 mg/dL (74-106); POTASSIUM,K 5.1 mmol/L (3.5-5.1); SODIUM,NA 138 mmol/L (136-148)
[2020-09-18] MEDS: Pantoprazole 40 MG Tab.CR PO SCH ×2 (06:46→16:56)
[2020-09-18] MEDS ORDERED: Aspirin 81 MG Tab.Chew PO ONE (07:50)
[2020-09-18] MEDS ORDERED: Morphine 2 MG/ML SYRINGE IVPUSH ONE (07:52)
[2020-09-18] MEDS: Albuterol/Ipratropium 3.0-0.5 MG/3 ML Neb Soln NEB PRN (07:53)
--- NOTE | 2020-09-18 09:04 | CR ---
INDICATION: Hypoxia. COVID positive. TECHNIQUE: Upright portable AP image of the chest. COMPARISON: 09/11/2020. FINDINGS: Previously demonstrated right base infiltrate resolved and infiltrates in the mid aspects of both lungs improved. Otherwise unchanged. IMPRESSION: Resolved right base infiltrate and improved mid lung infiltrates bilaterally. Dictated by Lopez Mcwilliams MD @ Sep 18 2020 8:59AM Signed by Dr. Lopez Mcwilliams @ Sep 18 2020 9:04AM
[2020-09-18] MEDS: Dexamethasone 4 MG Tab PO SCH (09:39)
[2020-09-18] MEDS: Cefdinir 300 MG Cap PO SCH ×2 (09:40→20:01)
[2020-09-18] MEDS: Metoprolol Tartrate 25 MG Tab PO SCH ×2 (09:42→20:02)
[2020-09-18] MEDS: Lisinopril 5 MG Tab PO SCH (09:43)
[2020-09-18] MEDS: Budesonide/Formoterol 160-4.5 MCG/Puff 6 GM Inhaler INH SCH ×2 (09:44→20:01)
--- NOTE | 2020-09-18 11:05 | PCM.SN.2 ---
- Free Text/Narrative Note: Requested for IV start. History of very difficult start. #22 gauge placed L inner wrist. Flushed well. Secured. Will fix with board. 09:50-11:05.
--- NOTE | 2020-09-18 11:30 | PCM.PN ---
<Anisa Perkins - Last Filed: 09/18/20 11:20> - General Info Date of Service: 09/18/20 Admission Dx/Problem (Free Text): Admission Diagnosis/Problem Admission Diagnosis/Problem Hypoxia Subjective Update: 75-year-old gentleman 75-year-old gentleman admitted for worsening hypoxic respiratory failure secondary to Covid pneumonia. Patient resting comfortably. Refused BiPAP this morning, his tolerating high flow as well, denies any shortness of breath, chest pain, n/v . Functional Status: Reports: Tolerating Diet, Ambulating, Incentive Spirometry - Review of Systems General: Reports: No Symptoms HEENT: Reports: No Symptoms Pulmonary: Reports: No Symptoms Cardiovascular: Reports: No Symptoms Gastrointestinal: Reports: No Symptoms Genitourinary: Reports: No Symptoms Musculoskeletal: Reports: No Symptoms Skin: Reports: No Symptoms Neurological: Reports: No Symptoms Psychiatric: Reports: No Symptoms - Patient Data Vitals - Most Recent: Last Vital Signs Temp 97.5 F 09/18/20 07:59 Pulse 91 09/18/20 09:42 Resp 18 09/18/20 10:00 BP 143/68 H 09/18/20 10:00 Pulse Ox 88 L 09/18/20 10:00 Weight - Most Recent: 113.806 kg I&O - Last 24 Hours: Intake & Output 09/17/20 09/18/20 09/18/20 22:59 06:59 14:59 Intake Total 1000 720 Output Total 800 900 Balance 200 -180 Lab Results Last 24 Hours: Laboratory Results - last 24 hr 09/18/20 09/18/20 09/18/20 Range/Units 05:45 05:45 08:00 WBC 15.12 H (4.0-11.0) K/uL RBC 4.76 (4.50-5.90) M/uL Hgb 14.2 (13.0-17.0) g/dL Hct 44.9 (38.0-50.0) % MCV 94.3 (80.0-98.0) fL MCH 29.8 (27.0-32.0) pg MCHC 31.6 (31.0-37.0) g/dL RDW Std Deviation 48.8 (28.0-62.0) fl RDW Coeff of Sheba 14 (11.0-15.0) % Plt Count 161 (150-400) K/uL MPV 10.90 (7.40-12.00) fL Add Manual Diff YES Neutrophils % (Manual) 79 (48.0-80.0) % Band Neutrophils % 2 % Lymphocytes % (Manual) 8 L (16.0-40.0) % Monocytes % (Manual) 8 (0.0-15.0) % Metamyelocytes % 3 % Nucleated RBC % 0.2 /100WBC Absolute Seg Neuts 11.9 H (1.4-5.7) Band Neutrophils # 0.3 Lymphocytes # (Manual) 1.2 (0.6-2.4) Monocytes # (Manual) 1.2 H (0.0-0.8) Absolute Metamyelocyte 0.5 Nucleated RBCs # 0 K/uL Sodium 138 (136-148) mmol/L Potassium 5.1 (3.5-5.1) mmol/L Chloride 102 (98-107) mmol/L Carbon Dioxide 26.6 (21.0-32.0) mmol/L BUN 25 H (7.0-18.0) mg/dL Creatinine 1.0 (0.8-1.3) mg/dL Est Cr Clr Drug Dosing 71.02 mL/min Estimated GFR (MDRD) > 60.0 ml/min Glucose 259 H (74-106) mg/dL Calcium 8.7 (8.5-10.1) mg/dL Phosphorus 2.5 L (2.6-4.7) mg/dL Magnesium 2.1 (1.8-2.4) mg/dL Total Bilirubin 0.4 (0.2-1.0) mg/dL AST 27 (15-37) IU/L ALT 19 (14-63) IU/L Alkaline Phosphatase 99 (46-116) U/L Troponin I < 0.050 (0.000-0.056) ng/mL Total Protein 6.1 L (6.4-8.2) g/dL Albumin 2.4 L (3.4-5.0) g/dL Globulin 3.7 (2.6-4.0) g/dL Albumin/Globulin Ratio 0.7 L (0.9-1.6) Lipase (73-393) U/L 09/18/20 Range/Units 08:00 WBC (4.0-11.0) K/uL RBC (4.50-5.90) M/uL Hgb (13.0-17.0) g/dL Hct (38.0-50.0) % MCV (80.0-98.0) fL MCH (27.0-32.0) pg MCHC (31.0-37.0) g/dL RDW Std Deviation (28.0-62.0) fl RDW Coeff of Sheba (11.0-15.0) % Plt Count (150-400) K/uL MPV (7.40-12.00) fL Add Manual Diff Neutrophils % (Manual) (48.0-80.0) % Band Neutrophils % % Lymphocytes % (Manual) (16.0-40.0) % Monocytes % (Manual) (0.0-15.0) % Metamyelocytes % % Nucleated RBC % /100WBC Absolute Seg Neuts (1.4-5.7) Band Neutrophils # Lymphocytes # (Manual) (0.6-2.4) Monocytes # (Manual) (0.0-0.8) Absolute Metamyelocyte Nucleated RBCs # K/uL Sodium (136-148) mmol/L Potassium (3.5-5.1) mmol/L Chloride (98-107) mmol/L Carbon Dioxide (21.0-32.0) mmol/L BUN (7.0-18.0) mg/dL Creatinine (0.8-1.3) mg/dL Est Cr Clr Drug Dosing mL/min Estimated GFR (MDRD) ml/min Glucose (74-106) mg/dL Calcium (8.5-10.1) mg/dL Phosphorus (2.6-4.7) mg/dL Magnesium (1.8-2.4) mg/dL Total Bilirubin (0.2-1.0) mg/dL AST (15-37) IU/L ALT (14-63) IU/L Alkaline Phosphatase (46-116) U/L Troponin I (0.000-0.056) ng/mL Total Protein (6.4-8.2) g/dL Albumin (3.4-5.0) g/dL Globulin (2.6-4.0) g/dL Albumin/Globulin Ratio (0.9-1.6) Lipase 91 (73-393) U/L Med Orders - Current: Current Medications Acetaminophen (Tylenol) 650 mg PO Q4H PRN PRN Reason: Pain (Mild 1-3)/fever Last Admin: 09/15/20 08:35 Dose: 650 mg Documented by: Albuterol/Ipratropium (Duoneb 3.0-0.5 Mg/3 Ml) 3 ml NEB Q4HRRT PRN PRN Reason: dyspnea,wheezing Last Admin: 09/18/20 07:53 Dose: 3 ml Documented by: Albuterol/Ipratropium (Combivent Respimat) 0 gm INH QID [facility] Last Admin: 09/18/20 05:18 Dose: 1 puff Documented by: Budesonide/Formoterol Fumarate (Symbicort 160-4.5 Mcg) 0 gm INH BID [facility] Last Admin: 09/18/20 09:44 Dose: 1 puff Documented by: Cefdinir (Omnicef) 300 mg PO BID [facility] [place] Last Admin: 09/18/20 09:40 Dose: 300 mg Documented by: Dexamethasone (Dexamethasone) 6 mg PO DAILY [facility] [place] Last Admin: 09/18/20 09:39 Dose: 6 mg Documented by: Enoxaparin Sodium (Lovenox) 40 mg SUBCUT Q24H [facility] [place] Last Admin: 09/17/20 18:25 Dose: 40 mg Documented by: Gabapentin (Neurontin) 600 mg PO TID [facility] Last Admin: 09/18/20 05:13 Dose: 600 mg Documented by: Levofloxacin (Levaquin) 750 mg PO Q24H [facility] [place] Last Admin: 09/17/20 22:58 Dose: 750 mg Documented by: Linezolid (Zyvox) 600 mg PO Q12H [facility] [place] Last Admin: 09/17/20 22:58 Dose: 600 mg Documented by: Lisinopril (Prinivil) 5 mg PO DAILY [facility] [place] Last Admin: 09/18/20 09:43 Dose: 5 mg Documented by: Metoprolol Tartrate (Lopressor) 12.5 mg PO BID [facility] [place] Last Admin: 09/18/20 09:42 Dose: 12.5 mg Documented by: Ondansetron HCl (Zofran Odt) 4 mg PO Q4H PRN PRN Reason: nausea, able to take PO Last Admin: 09/16/20 07:40 Dose: 4 mg Documented by: Pantoprazole Sodium (Protonix) 40 mg PO BIDAC [facility] [place] Last Admin: 09/18/20 06:46 Dose: 40 mg Documented by: Pravastatin Sodium (Pravachol) 20 mg PO BEDTIME [facility] [place] Last Admin: 09/17/20 20:37 Dose: 20 mg Documented by: Discontinued Medications Albuterol/Ipratropium (Duoneb 3.0-0.5 Mg/3 Ml) 3 ml NEB Q4HRRT PRN PRN Reason: Shortness Of Breath/wheezing Last Admin: 09/15/20 15:15 Dose: 3 ml Documented by: Albuterol/Ipratropium (Duoneb 3.0-0.5 Mg/3 Ml) 3 ml NEB Q4HRRT [facility] [place] Aspirin (Aspirin) 81 mg PO ONETIME ONE Stop: 09/18/20 07:51 Last Admin: 09/18/20 07:56 Dose: 81 mg Documented by: Furosemide (Lasix) 20 mg IVPUSH NOW ONE Stop: 09/14/20 14:25 Last Admin: 09/14/20 20:19 Dose: Not Given Documented by: Furosemide (Lasix) 20 mg IVPUSH ONETIME ONE Stop: 09/16/20 12:01 Last Admin: 09/16/20 12:23 Dose: 20 mg Documented by: Furosemide (Lasix) 20 mg IVPUSH NOW ONE Stop: 09/17/20 10:46 Last Admin: 09/17/20 11:17 Dose: 20 mg Documented by: Remdesivir 200 mg/ Sodium (Chloride) 250 mls @ 250 mls/hr IV ONETIME ONE Stop: 09/11/20 17:08 Last Admin: 09/11/20 20:36 Dose: 250 mls/hr Documented by: Cefepime HCl 2 gm/ Premix 50 mls @ 100 mls/hr IV Q8H [facility] [place] Last Admin: 09/13/20 11:39 Dose: 100 mls/hr Documented by: Doxycycline Hyclate 100 mg/ (Sodium Chloride) 100 mls @ 100 mls/hr IV Q12H [facility] [place] Stop: 09/18/20 17:31 Last Admin: 09/11/20 22:52 Dose: Not Given Documented by: Remdesivir 100 mg/ Sodium (Chloride) 100 mls @ 100 mls/hr IV Q24H [facility] [place] Stop: 09/15/20 18:44 Last Admin: 09/14/20 20:20 Dose: Not Given Documented by: Pantoprazole Sodium 40 mg/ (Sodium Chloride) 10 mls @ 300 mls/hr IV Q24H [facility] [place] Last Admin: 09/11/20 23:00 Dose: Not Given Documented by: Doxycycline Hyclate 100 mg/ (Sodium Chloride) 100 mls @ 100 mls/hr IV Q12H [facility] [place] Last Admin: 09/11/20 22:52 Dose: 100 mls/hr Documented by: Pantoprazole Sodium 40 mg/ (Sodium Chloride) 10 mls @ 300 mls/hr IV Q24H [facility] [place] Last Admin: 09/14/20 22:06 Dose: Not Given Documented by: Doxycycline Hyclate 100 mg/ (Sodium Chloride) 100 mls @ 100 mls/hr IV Q12H [facility] [place] Last Admin: 09/14/20 22:06 Dose: Not Given Documented by: Vancomycin HCl 1.75 gm/ Premix 350 mls @ 175 mls/hr IV Q12H [facility] [place] Last Admin: 09/14/20 11:01 Dose: Not Given Documented by: Cefepime HCl 2 gm/ Premix 50 mls @ 100 mls/hr IV Q8H [facility] [place] Last Admin: 09/14/20 20:24 Dose: Not Given Documented by: Vancomycin HCl 1.75 gm/ Premix 350 mls @ 175 mls/hr IV Q12H [facility] [place] Last Admin: 09/14/20 22:59 Dose: Not Given Documented by: Remdesivir 100 mg/ Sodium (Chloride) 100 mls @ 100 mls/hr IV Q24H [facility] [place] Stop: 09/16/20 16:59 Last Admin: 09/16/20 16:45 Dose: 100 mls/hr Documented by: Remdesivir 100 mg/ Sodium (Chloride) 100 mls @ 100 mls/hr IV Q24H [facility] [place] Stop: 09/17/20 22:59 Remdesivir 100 mg/ Sodium (Chloride) 100 mls @ 100 mls/hr IV Q24H [facility] Stop: 09/18/20 16:59 Last Admin: 09/17/20 18:23 Dose: Not Given Documented by: Iopamidol (Isovue Multipack-370 (76%)) 100 ml IVPUSH ONETIME ONE Stop: 09/11/20 19:31 Last Admin: 09/11/20 19:31 Dose: 100 ml Documented by: Lorazepam (Ativan) Confirm Administered Dose 2 mg .ROUTE .STK-MED ONE Stop: 09/15/20 14:26 Last Admin: 09/15/20 15:28 Dose: 1 mg Documented by: Lorazepam (Ativan) 1 mg IVPUSH ONETIME ONE Stop: 09/15/20 15:26 Last Admin: 09/15/20 19:00 Dose: Not Given Documented by: Lorazepam (Ativan) 1 mg IVPUSH ONETIME ONE Stop: 09/16/20 21:38 Last Admin: 09/17/20 03:00 Dose: Not Given Documented by: Lorazepam (Ativan) 1 mg IVPUSH ONETIME ONE Stop: 09/17/20 03:35 Last Admin: 09/17/20 03:45 Dose: 1 mg Documented by: Methylprednisolone Sodium Succinate (Solu-Medrol) 125 mg IM ONETIME ONE Stop: 09/11/20 17:16 Last Admin: 09/11/20 22:50 Dose: 125 mg Documented by: Methylprednisolone Sodium Succinate (Solu-Medrol) 125 mg IM BID [facility] Last Admin: 09/12/20 08:28 Dose: 125 mg Documented by: Methylprednisolone Sodium Succinate (Solu-Medrol) 125 mg IM ONETIME ONE Stop: 09/11/20 22:01 Last Admin: 09/11/20 22:51 Dose: Not Given Documented by: Methylprednisolone Sodium Succinate (Solu-Medrol) 125 mg IVPUSH Q12H [facility] Last Admin: 09/13/20 09:26 Dose: 125 mg Documented by: Methylprednisolone Sodium Succinate (Solu-Medrol) 125 mg IVPUSH DAILY [facility] Last Admin: 09/14/20 09:55 Dose: 125 mg Documented by: Metoprolol Tartrate (Lopressor) 25 mg PO BID [facility] Last Admin: 09/14/20 10:59 Dose: Not Given Documented by: Morphine Sulfate (Morphine) 2 mg IVPUSH ONETIME ONE Stop: 09/18/20 07:53 Last Admin: 09/18/20 09:38 Dose: Not Given Documented by: Non-Formulary Medication (Gabapentin) 600 mg PO TID [facility] Last Admin: 09/11/20 23:51 Dose: Not Given Documented by: Non-Formulary Medication (Pravastatin) 20 mg PO BEDTIME [facility] Last Admin: 09/11/20 23:52 Dose: Not Given Documented by: Budesonide/Formoterol 160-4.5 Mcg/Puff 6 Gm Inhaler 2 each INH BID [facility] Last Admin: 09/17/20 09:16 Dose: Not Given Documented by: Prednisone (Prednisone) 40 mg PO BID [facility] Stop: 09/17/20 23:59 Last Admin: 09/17/20 20:39 Dose: 40 mg Documented by: Sodium Phosphate (Neutra-Phos) 250 mg PO ONETIME ONE Stop: 09/16/20 11:03 Last Admin: 09/16/20 12:21 Dose: 250 mg Documented by: - Exam Quality Assessment: Supplemental Oxygen, DVT Prophylaxis General: Alert, Oriented, Cooperative HEENT: Pupils Equal, Pupils Reactive, EOMI Neck: Supple Lungs: Clear to Auscultation Cardiovascular: Regular Rate, Regular Rhythm GI/Abdominal Exam: Normal Bowel Sounds, Soft, Non-Tender, No Distention, No Mass . No: Guarding, Rigid, Rebound, Tender Extremities: Normal Inspection, Normal Range of Motion, Non-Tender, No Pedal Edema, Normal Capillary Refill Peripheral Pulses: 2+: Radial (L), Radial (R), Dorsalis Pedis (L), Dorsalis Pedis (R) Skin: Warm, Dry, Intact Neurological: No New Focal Deficit Psy/Mental Status: Alert, Normal Affect, Normal Mood Sepsis Event Note - Evaluation Sepsis Screening Result: No Definite Risk - Focused Exam Vital Signs: Vital Signs Temp Pulse Resp BP BP Pulse Ox Pulse Ox 09/18/20 10:00 18 143/68 H 94 L 88 L 09/18/20 09:43 122/76 09/18/20 09:42 91 122/76 09/18/20 09:00 22 H 122/76 90 L 09/18/20 07:59 97.5 F 16 147/68 H 90 L 09/18/20 07:00 17 140/68 87 L 09/18/20 06:00 20 136/71 91 L 09/18/20 05:00 17 128/68 89 L 09/18/20 04:00 97.5 F 20 132/87 91 L 09/18/20 03:00 19 133/57 L 92 L 09/18/20 02:00 18 123/70 90 L 09/18/20 01:00 18 138/65 94 L 09/18/20 00:00 97.2 F 16 139/58 L 89 L - Problem List & Annotations (1) COVID-19 SNOMED Code(s): 612389241 Code(s): U07.1 - COVID-19 Status: Acute Current Visit: Yes - Problem List Review Problem List Initiated/Reviewed/Updated: Yes - My Orders Last 24 Hours: My Active Orders 09/18/20 07:35 EKG 12 Lead [EKG Documentation Completion] [RC] ROUTINE EKG 12 Lead [EKG Documentation Completion] [RC] STAT 09/18/20 10:53 TROPONIN I [CHEM] Routine - Plan Plan:: 75-year-old gentleman admitted for hypoxic respiratory failure secondary to worsening Covid pneumonia. 1. Hypoxic respiratory failure secondary to worsening over pneumonia: currently on high flow, tolerating it well , may need intermittent BiPAP however refused at this morning CTA has ruled out PE Antibiotics: cont PO antibiotics,cultures noted, wbc count up trending mild improvement, likely secondary to steroids,, repeat chest x-ray this morning indicating some improvement, clinically patient also appears to be improving. Remdesivir completed DuoNebs every 4 hours Dexamethasone DVT prophylaxis Lovenox 40 subcu every 24 Continue to encourage incentive spirometry and acapella -Patient is DNR/DNI 2. Chest pain: Chest x-rayshowed improvement, EKGno changes, no changes on telemetry, troponins were negative every 3 hours x2. Aspirin 81 mg given, pain resolved therefore morphine was not given 2 mg. 3. Hypertensive/bradycardic: Stable, continue with decreased dose of metoprolol, cont lisinopril, will continue to monitor and resume accordingly. Past medical history of COPD, coronary artery disease, PAD, hyperlipidemia; resumed home medications DVT prophylaxis Lovenox subcu 40, GI prophylaxis 40 pantoprazole, up with assistance, heart healthy diet <Florin Jewell - Last Filed: 09/19/20 12:52> - Patient Data Vitals - Most Recent: Last Vital Signs Temp 37.1 C 09/19/20 07:58 Pulse 78 09/19/20 08:01 Resp 20 09/19/20 10:20 BP 114/75 09/19/20 10:14 Pulse Ox 89 L 09/19/20 10:20 I&O - Last 24 Hours: Intake & Output 09/18/20 09/19/20 09/19/20 22:59 06:59 14:59 Intake Total 1440 400 Output Total 600 550 Balance 840 -150 Lab Results Last 24 Hours: Laboratory Results - last 24 hr 09/19/20 09/19/20 09/19/20 Range/Units 05:38 05:38 11:00 WBC 16.63 H (4.0-11.0) K/uL RBC 4.69 (4.50-5.90) M/uL Hgb 14.1 (13.0-17.0) g/dL Hct 44.4 (38.0-50.0) % MCV 94.7 (80.0-98.0) fL MCH 30.1 (27.0-32.0) pg MCHC 31.8 (31.0-37.0) g/dL RDW Std Deviation 49.0 (28.0-62.0) fl RDW Coeff of Sheba 14 (11.0-15.0) % Plt Count 155 (150-400) K/uL MPV 10.70 (7.40-12.00) fL Add Manual Diff YES Neutrophils % (Manual) 81 H (48.0-80.0) % Band Neutrophils % 6 % Lymphocytes % (Manual) 11 L (16.0-40.0) % Monocytes % (Manual) 2 (0.0-15.0) % Nucleated RBC % 0.0 /100WBC Absolute Seg Neuts 13.5 H (1.4-5.7) Band Neutrophils # 1.0 Lymphocytes # (Manual) 1.8 (0.6-2.4) Monocytes # (Manual) 0.3 (0.0-0.8) Nucleated RBCs # 0 K/uL Sodium 141 (136-148) mmol/L Potassium 4.7 (3.5-5.1) mmol/L Chloride 103 (98-107) mmol/L Carbon Dioxide 28.9 (21.0-32.0) mmol/L BUN 30 H (7.0-18.0) mg/dL Creatinine 1.0 (0.8-1.3) mg/dL Est Cr Clr Drug Dosing 71.02 mL/min Estimated GFR (MDRD) > 60.0 ml/min Glucose 144 H (74-106) mg/dL Calcium 8.6 (8.5-10.1) mg/dL Phosphorus 2.9 (2.6-4.7) mg/dL Magnesium 1.9 (1.8-2.4) mg/dL Total Bilirubin 0.4 (0.2-1.0) mg/dL AST 30 (15-37) IU/L ALT 16 (14-63) IU/L Alkaline Phosphatase 104 (46-116) U/L Total Protein 5.7 L (6.4-8.2) g/dL Albumin 2.2 L (3.4-5.0) g/dL Globulin 3.5 (2.6-4.0) g/dL Albumin/Globulin Ratio 0.6 L (0.9-1.6) Urine Color YELLOW Urine Appearance SLT CLOUDY Urine pH 6.0 (5.0-8.0) Ur Specific [place] 1.025 (1.001-1.035) Urine Protein 30 H (NEGATIVE) mg/dL Urine Glucose (UA) 250 H (NEGATIVE) mg/dL Urine Ketones NEGATIVE (NEGATIVE) mg/dL Urine Occult Blood TRACE-INTACT H (NEGATIVE) Urine Nitrite NEGATIVE (NEGATIVE) Urine Bilirubin NEGATIVE (NEGATIVE) Urine Urobilinogen 0.2 (<2.0) EU/dL Ur Leukocyte Esterase NEGATIVE (NEGATIVE) Urine RBC 0-2 (0-2/HPF) Urine WBC 0-2 (0-5/HPF) Ur Epithelial Cells RARE (NONE-FEW) Urine Bacteria RARE (NEGATIVE) Urine Yeast MODERATE Urinalysis Comment Med Orders - Current: Current Medications Acetaminophen (Tylenol) 650 mg PO Q4H PRN PRN Reason: Pain (Mild 1-3)/fever Last Admin: 09/19/20 01:11 Dose: 650 mg Documented by: Albuterol/Ipratropium (Duoneb 3.0-0.5 Mg/3 Ml) 3 ml NEB Q4HRRT PRN PRN Reason: dyspnea,wheezing Last Admin: 09/18/20 07:53 Dose: 3 ml Documented by: Albuterol/Ipratropium (Combivent Respimat) 0 gm INH QID [facility] Last Admin: 09/19/20 11:13 Dose: 1 puff Documented by: Budesonide/Formoterol Fumarate (Symbicort 160-4.5 Mcg) 0 gm INH BID [facility] Last Admin: 09/19/20 08:19 Dose: 1 puff Documented by: Dexamethasone (Dexamethasone) 6 mg PO DAILY [facility] Stop: 09/20/20 10:00 Last Admin: 09/19/20 08:00 Dose: 6 mg Documented by: Enoxaparin Sodium (Lovenox) 40 mg SUBCUT Q24H [facility] [place] Last Admin: 09/18/20 16:57 Dose: 40 mg Documented by: Gabapentin (Neurontin) 600 mg PO TID [facility] [place] Last Admin: 09/19/20 05:17 Dose: 600 mg Documented by: Guaifenesin (Robitussin) 100 mg PO Q6H PRN PRN Reason: Cough Last Admin: 09/19/20 01:42 Dose: 100 mg Documented by: Lisinopril (Prinivil) 5 mg PO DAILY [facility] [place] Last Admin: 09/19/20 08:01 Dose: 5 mg Documented by: Metoprolol Tartrate (Lopressor) 12.5 mg PO BID [facility] Last Admin: 09/19/20 08:01 Dose: 12.5 mg Documented by: Ondansetron HCl (Zofran Odt) 4 mg PO Q4H PRN PRN Reason: nausea, able to take PO Last Admin: 09/19/20 02:18 Dose: 4 mg Documented by: [facility]) [facility] Last Admin: 09/19/20 06:30 Dose: 40 mg Documented by: Pravastatin Sodium (Pravachol) 20 mg PO BEDTIME [facility] [place] Last Admin: 09/18/20 20:01 Dose: 20 mg Documented by: Discontinued Medications Albuterol/Ipratropium (Duoneb 3.0-0.5 Mg/3 Ml) 3 ml NEB Q4HRRT PRN PRN Reason: Shortness Of Breath/wheezing Last Admin: 09/15/20 15:15 Dose: 3 ml Documented by: Albuterol/Ipratropium (Duoneb 3.0-0.5 Mg/3 Ml) 3 ml NEB Q4HRRT [facility] Aspirin (Aspirin) 81 mg PO ONETIME ONE Stop: 09/18/20 07:51 Last Admin: 09/18/20 07:56 Dose: 81 mg Documented by: Cefdinir (Omnicef) 300 mg PO BID [facility] [place] Last Admin: 09/19/20 08:02 Dose: 300 mg Documented by: Furosemide (Lasix) 20 mg IVPUSH NOW ONE Stop: 09/14/20 14:25 Last Admin: 09/14/20 20:19 Dose: Not Given Documented by: Furosemide (Lasix) 20 mg IVPUSH ONETIME ONE Stop: 09/16/20 12:01 Last Admin: 09/16/20 12:23 Dose: 20 mg Documented by: Furosemide (Lasix) 20 mg IVPUSH NOW ONE Stop: 09/17/20 10:46 Last Admin: 09/17/20 11:17 Dose: 20 mg Documented by: Remdesivir 200 mg/ Sodium (Chloride) 250 mls @ 250 mls/hr IV ONETIME ONE Stop: 09/11/20 17:08 Last Admin: 09/11/20 20:36 Dose: 250 mls/hr Documented by: Cefepime HCl 2 gm/ Premix 50 mls @ 100 mls/hr IV Q8H [facility] [place] Last Admin: 09/13/20 11:39 Dose: 100 mls/hr Documented by: Doxycycline Hyclate 100 mg/ (Sodium Chloride) 100 mls @ 100 mls/hr IV Q12H [facility] [place] Stop: 09/18/20 17:31 Last Admin: 09/11/20 22:52 Dose: Not Given Documented by: Remdesivir 100 mg/ Sodium (Chloride) 100 mls @ 100 mls/hr IV Q24H [facility] [place] Stop: 09/15/20 18:44 Last Admin: 09/14/20 20:20 Dose: Not Given Documented by: Pantoprazole Sodium 40 mg/ (Sodium Chloride) 10 mls @ 300 mls/hr IV Q24H [facility] [place] Last Admin: 09/11/20 23:00 Dose: Not Given Documented by: Doxycycline Hyclate 100 mg/ (Sodium Chloride) 100 mls @ 100 mls/hr IV Q12H [facility] [place] Last Admin: 09/11/20 22:52 Dose: 100 mls/hr Documented by: Pantoprazole Sodium 40 mg/ (Sodium Chloride) 10 mls @ 300 mls/hr IV Q24H [facility] [place] Last Admin: 09/14/20 22:06 Dose: Not Given Documented by: Doxycycline Hyclate 100 mg/ (Sodium Chloride) 100 mls @ 100 mls/hr IV Q12H [facility] [place] Last Admin: 09/14/20 22:06 Dose: Not Given Documented by: Vancomycin HCl 1.75 gm/ Premix 350 mls @ 175 mls/hr IV Q12H [facility] [place] Last Admin: 09/14/20 11:01 Dose: Not Given Documented by: Cefepime HCl 2 gm/ Premix 50 mls @ 100 mls/hr IV Q8H [facility] [place] Last Admin: 09/14/20 20:24 Dose: Not Given Documented by: Vancomycin HCl 1.75 gm/ Premix 350 mls @ 175 mls/hr IV Q12H [facility] [place] Last Admin: 09/14/20 22:59 Dose: Not Given Documented by: Remdesivir 100 mg/ Sodium (Chloride) 100 mls @ 100 mls/hr IV Q24H [facility] [place] Stop: 09/16/20 16:59 Last Admin: 09/16/20 16:45 Dose: 100 mls/hr Documented by: Remdesivir 100 mg/ Sodium (Chloride) 100 mls @ 100 mls/hr IV Q24H [facility] [place] Stop: 09/17/20 22:59 Remdesivir 100 mg/ Sodium (Chloride) 100 mls @ 100 mls/hr IV Q24H [facility] [place] Stop: 09/18/20 16:59 Last Admin: 09/17/20 18:23 Dose: Not Given Documented by: Iopamidol (Isovue Multipack-370 (76%)) 100 ml IVPUSH ONETIME ONE Stop: 09/11/20 19:31 Last Admin: 09/11/20 19:31 Dose: 100 ml Documented by: Ketorolac Tromethamine (Toradol) 15 mg IVPUSH ONETIME ONE Stop: 09/18/20 14:14 Last Admin: 09/18/20 15:57 Dose: 15 mg Documented by: Ketorolac Tromethamine (Toradol) 15 mg IVPUSH ONETIME ONE Stop: 09/19/20 01:27 Last Admin: 09/19/20 01:33 Dose: 15 mg Documented by: Levofloxacin (Levaquin) 750 mg PO Q24H [facility] [place] Last Admin: 09/18/20 22:47 Dose: 750 mg Documented by: Linezolid (Zyvox) 600 mg PO Q12H [facility] [place] Last Admin: 09/18/20 11:35 Dose: 600 mg Documented by: Lorazepam (Ativan) Confirm Administered Dose 2 mg .ROUTE .STK-MED ONE Stop: 09/15/20 14:26 Last Admin: 09/15/20 15:28 Dose: 1 mg Documented by: Lorazepam (Ativan) 1 mg IVPUSH ONETIME ONE Stop: 09/15/20 15:26 Last Admin: 09/15/20 19:00 Dose: Not Given Documented by: Lorazepam (Ativan) 1 mg IVPUSH ONETIME ONE Stop: 09/16/20 21:38 Last Admin: 09/17/20 03:00 Dose: Not Given Documented by: Lorazepam (Ativan) 1 mg IVPUSH ONETIME ONE Stop: 09/17/20 03:35 Last Admin: 09/17/20 03:45 Dose: 1 mg Documented by: Methylprednisolone Sodium Succinate (Solu-Medrol) 125 mg IM ONETIME ONE Stop: 09/11/20 17:16 Last Admin: 09/11/20 22:50 Dose: 125 mg Documented by: Methylprednisolone Sodium Succinate (Solu-Medrol) 125 mg IM BID [facility] [place] Last Admin: 09/12/20 08:28 Dose: 125 mg Documented by: Methylprednisolone Sodium Succinate (Solu-Medrol) 125 mg IM ONETIME ONE Stop: 09/11/20 22:01 Last Admin: 09/11/20 22:51 Dose: Not Given Documented by: Methylprednisolone Sodium Succinate (Solu-Medrol) 125 mg IVPUSH Q12H [facility] [place] Last Admin: 09/13/20 09:26 Dose: 125 mg Documented by: Methylprednisolone Sodium Succinate (Solu-Medrol) 125 mg IVPUSH DAILY [facility] [place] Last Admin: 09/14/20 09:55 Dose: 125 mg Documented by: Metoprolol Tartrate (Lopressor) 25 mg PO BID [facility] [place] Last Admin: 09/14/20 10:59 Dose: Not Given Documented by: Morphine Sulfate (Morphine) 2 mg IVPUSH ONETIME ONE Stop: 09/18/20 07:53 Last Admin: 09/18/20 09:38 Dose: Not Given Documented by: Non-Formulary Medication (Gabapentin) 600 mg PO TID [facility] Last Admin: 09/11/20 23:51 Dose: Not Given Documented by: Non-Formulary Medication (Pravastatin) 20 mg PO BEDTIME [facility] [place] Last Admin: 09/11/20 23:52 Dose: Not Given Documented by: Budesonide/Formoterol 160-4.5 Mcg/Puff 6 Gm Inhaler 2 each INH BID [facility] Last Admin: 09/17/20 09:16 Dose: Not Given Documented by: Prednisone (Prednisone) 40 mg PO BID [facility] Stop: 09/17/20 23:59 Last Admin: 09/17/20 20:39 Dose: 40 mg Documented by: Sodium Phosphate (Neutra-Phos) 250 mg PO ONETIME ONE Stop: 09/16/20 11:03 Last Admin: 09/16/20 12:21 Dose: 250 mg Documented by: Sepsis Event Note - Focused Exam Vital Signs: Vital Signs Temp Pulse Resp BP BP Pulse Ox 09/19/20 10:20 20 89 L 09/19/20 10:14 25 H 114/75 83 L 09/19/20 09:20 24 H 100/46 L 93 L 09/19/20 08:01 78 121/63 09/19/20 07:58 37.1 C 20 121/68 88 L 09/19/20 07:00 19 105/58 L 90 L 09/19/20 06:00 17 120/63 89 L 09/19/20 05:00 17 110/62 88 L 09/19/20 04:00 36.4 C 15 110/61 88 L 09/19/20 03:00 16 101/49 L 85 L 09/19/20 02:00 16 127/71 91 L 09/19/20 01:00 16 134/71 92 L - Problem List & Annotations (1) COVID-19 SNOMED Code(s): 185603363 Code(s): U07.1 - COVID-19 Status: Acute Current Visit: Yes (2) CAP (community acquired pneumonia) SNOMED Code(s): 714162723 Code(s): J18.9 - PNEUMONIA, UNSPECIFIED ORGANISM Status: Acute Current Visit: No (3) COPD (chronic obstructive pulmonary disease) case management patient SNOMED Code(s): 595140860, 080371402, 921087976 Code(s): NBM7865 - Status: Acute Priority: High Current Visit: No (4) Chronic pain disorder SNOMED Code(s): 466979141 Code(s): G89.4 - CHRONIC PAIN SYNDROME Status: Acute Current Visit: No (5) Acute respiratory failure with hypoxia SNOMED Code(s): 31062462, 389093162 Code(s): J96.01 - ACUTE RESPIRATORY FAILURE WITH HYPOXIA Status: Acute Current Visit: Yes - Plan Plan:: I have seen and evaluated the patient and agree with the residents note unless specified in my note
[2020-09-18] MEDS: Linezolid 600 MG Tab PO SCH (11:35)
--- NOTE | 2020-09-18 12:12 | PN ---
TINO Physician - Brief Progress GoieRQANSMGBS20/10/2021 10:57[facility] Eduardo [place], [place] - MWN (ERIKAN) - MWN SHALONDA MOLINA, COVID+Date of Service 09/18/2020 10:57H PI/Events of Note eICU Progress NotePt is a 75 yo M originally admitted on 09/12 for COVID pneumonia an d hypoxic respiratory failure. He has completed his course of Remdesivir and remains on Decadron, Lev aquin, Omnicef and Zyvox. Tomorrow is day 7 of total antibiotic therapy and should be complete. Proca l results were 0.06, so it is reasonable to discontinue the antibiotics entirely even though he has a lmost completed the course. Pt is currently laying in bed in NAD on HF NC with a SpO2 of 89%. He is n ot always compliant with therapies, but nursing staff continue to support him the best that they can. Case was discussed with his nurse Charlene who will discuss the antibiotic recommendations with the bed side provider and call back to discuss further or for me to order those changes. eICU Recommendations :1) Goal SpO2 remains 88-92% on HF NC2) Continue COVID therapies as appropriate3) PRN Electrolyte rep lacement4) Antibiotics may be discontinued today5) Increase activity as toleratedThank you for bambi ng us to participate in the care of your patient.Interventions Major-Hypoxemia - evaluation and manag ement, Infection - evaluation and gjulfoyaxmGaqqojhgaenz-Zfwk-qronxesq therapies (e.g. VTE, beta bloc ker, etc.), Communication with other healthcare providers and/or family, Electrolyte abnormality - ev aluation and management, Medication change / dose adjustment
[2020-09-18] MEDS ORDERED: Ketorolac 15 MG/ML SDV IVPUSH ONE (14:13)
[2020-09-18] MEDS: Enoxaparin 40 MG/0.4 ML Syringe SUBCUT SCH (16:57)
[2020-09-18] MEDS: guaiFENesin 100 MG/5 ML Soln 5 ML UD Cup PO PRN (20:01)
[2020-09-18] MEDS: Pravastatin 40 MG Tab PO SCH (20:01)
[2020-09-18] MEDS: Levofloxacin 250 MG Tab PO SCH (22:47)
[2020-09-19] MEDS: Acetaminophen 325 MG Tab PO PRN (01:11)
[2020-09-19] MEDS ORDERED: Ketorolac 30 MG/ML SDV IVPUSH ONE (01:26)
[2020-09-19] MEDS: guaiFENesin 100 MG/5 ML Soln 5 ML UD Cup PO PRN (01:42)
[2020-09-19] MEDS: Ondansetron 4 MG Tab.DIS PO PRN (02:18)
[2020-09-19] MEDS: Gabapentin 300 MG Cap PO SCH ×2 (05:17→15:00)
[2020-09-19] MEDS: Albuterol/Ipratropium 4 GM Inhalation Spray INH SCH ×2 (05:45→11:13)
[2020-09-19] MEDS: Pantoprazole 40 MG Tab.CR PO SCH (06:30)
[2020-09-19 06:38] LABS: BLOOD UREA NITROGEN,BUN 30 mg/dL (7.0-18.0); CARBON DIOXIDE,CO2 28.9 mmol/L (21.0-32.0); CHLORIDE,CL 103 mmol/L (98-107); GLUCOSE RANDOM 144 mg/dL (74-106); POTASSIUM,K 4.7 mmol/L (3.5-5.1); SODIUM,NA 141 mmol/L (136-148)
[2020-09-19] MEDS: Dexamethasone 4 MG Tab PO SCH (08:00)
[2020-09-19] MEDS: Lisinopril 5 MG Tab PO SCH (08:01)
[2020-09-19] MEDS: Metoprolol Tartrate 25 MG Tab PO SCH (08:01)
[2020-09-19] MEDS: Cefdinir 300 MG Cap PO SCH (08:02)
[2020-09-19 08:03] VITALS: PULSE 78
[2020-09-19] MEDS: Budesonide/Formoterol 160-4.5 MCG/Puff 6 GM Inhaler INH SCH (08:19)
--- NOTE | 2020-09-19 10:41 | US ---
INDICATION: LT LOWWER EXT SWELLING TECHNIQUE: Ultrasound venous duplex left lower extremity. COMPARISON: None. FINDINGS: The left common femoral, superficial femoral, deep femoral, popliteal, posterior tibial, and greater saphenous veins are fully compressible normal waveforms. IMPRESSION: Normal ultrasound of the left lower extremity veins. Dictated by: Dawson Matson MD @ 09/19/2020 10:41:04 (Electronically Signed)
--- NOTE | 2020-09-19 10:43 | ECHO ---
EXAM DATE: 09/11/20 PATIENT'S AGE: 75 The ECHO report has been scanned into [employer] and can be seen in this patient's EMR (Electronic Medical Record) under the REPORTS section. The report has also been scanned into PACS. DOMINIQUE
--- NOTE | 2020-09-19 12:29 | CT ---
INDICATION: Left lower quadrant abdominal pain COMPARISON: Portions of a chest CT from September 11, 2020 and an abdomen and pelvis CT from August 28, 2020 TECHNIQUE: CT examination of the abdomen and pelvis was performed without intravenous contrast. Thin section axial images were obtained from the lung bases through the pubic symphysis. Oral contrast was not administered. Please note that all CT scans at this facility use dose modulation, iterative reconstruction, and/or weight-based dosing when appropriate to reduce radiation dose to as low as reasonably achievable. FINDINGS: LUNG BASES: The lung bases are abnormal containing patchy multifocal ground-glass. This has worsened when compared to the September study in new when compared to September 05, 2020 study.This is likely inflammatory and possibly related to COVID 19. Heart size is normal the lung bases. Small hiatal hernia. LIVER/BILIARY SYSTEM:The liver is normal in size and configuration given the lack of intravenous contrast. There is no visible focal mass and there is no intra- or extra hepatic biliary ductal dilatation.The gall bladder appears normal. ADRENALS: Normal non-contrast appearance KIDNEYS, URETERS and BLADDER:The kidneys are normal in size. There is bilateral and symmetric perinephric stranding which is unchanged since the prior study. No calcified calculus or obstructive uropathy. Enlarged prostate. Bladder wall thickening likely related to chronic bladder outlet obstruction. SPLEEN:Normal non-contrast appearance. PANCREAS: Fatty infiltrated but otherwise unremarkable RETROPERITONEUM and MESENTERY: There is no mass, adenopathy or aortic aneurysm. Atherosclerotic vascular calcifications. Mild fusiform dilatation of the mid aorta at 3 centimeters. Stent associated with renal arteries. GASTROINTESTINAL SYSTEM: There is no evidence of diverticulitis, colitis, mechanical obstruction, or appendicitis. The small bowel as visualized appears normal.Diverticulosis. No diverticulitis. No visible GI cause for left lower quadrant abdominal pain PELVIS: No free fluid or adenopathy. Changes about the left common iliac artery and vein likely related to a prior cut down. This is unchanged. OSSEOUS STRUCTURES and ABDOMINAL WALL: There is an age-appropriate appearance of the osseous structures.Fat containing umbilical hernias, right greater than left unchanged OTHER: No free fluid or free air. IMPRESSION: 1. 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 This is new since 09/05/2020 and worsened since 09/11/2020. 2. Multiple incidental nonacute appearing findings as discussed above. These are essentially unchanged without clearly visible etiology for acute left lower quadrant abdominal pain Please note that all CT scans at this facility use dose modulation, iterative reconstruction, and/or weight-based dosing when appropriate to reduce radiation dose to as low as reasonably achievable. Dictated by Barry Cast MD @ Sep 19 2020 12:15PM Signed by Dr. Barry Cast @ Sep 19 2020 12:28PM
[2020-09-19] MEDS: Albuterol/Ipratropium 3.0-0.5 MG/3 ML Neb Soln NEB PRN (14:23)
[2020-09-19] MEDS ORDERED: fentaNYL 100 MCG/2 ML SDV ONE ×2 (14:47→16:13)
[2020-09-19] MEDS ORDERED: Midazolam 1 MG/ML 2 ML SDV ONE (14:48)
[2020-09-19] MEDS ORDERED: propofoL 100 ML ONE (15:27)
--- NOTE | 2020-09-19 15:39 | PCM.DCSUM1 ---
<Anisa Perkins - Last Filed: 09/19/20 15:47> Discharge Summary - Hospital Course Brief History: Patient is a 75-year-old gentleman with previous history of COPD, coronary artery disease with 3 times stents and CABG procedure/PAD/HDL. Was recently admitted on September 05 for Covid and discharged on September 07, 2020. Patient comes into the ER presenting with shortness of breath, upon arrival was satting in the 70s with minimal amount of activity. Was requiring 15 L of oxygen with sats resuming to 95%. Patient denies any chest pain, fever, chills, nausea, vomiting, diarrhea, GI or symptoms, any sick contacts or recent travel. ER course: EKG normal chest x-ray indicating worsening pneumonia. CBC, CMP, CK 577, lactic acid 2.7, UA, U tox. Diagnosis: Stroke: No - Discharge Data Discharge Date: 09/19/20 Discharge Disposition: DC/Tfer to Critical Access 66 Condition: Critical - Referral to Home Health Primary Care Physician: PCP None - Discharge Diagnosis/Problem(s) (1) COVID-19 SNOMED Code(s): 120480403 ICD Code: U07.1 - COVID-19 Status: Acute - Patient Summary/Data Consults: Consultations 09/14/20 10:18 Consult to Spiritual Care [CONS] Routine Hospital Course: -Pt was admitted with worsening covid pneumonia requiring oxygen support -quickly escalated to requiring Bipap and HHF in the ICU -started on solumedrol, then changed to dexamethasone, given Duonebs Q4H, antibiotics Levaquin, Xyvox, and cefepime, incentive spirometry, acapella -repeat CXR, showed improved covid pneumonia, -tiing on BIPAP therefore has mostly been on HHF, -worsening O2 sats this afternoon, pt stated he is interested in intubation - Patient Instructions Diet: Heart Healthy Diet Activity: Bedrest Notify Provider of: Fever, Increased Pain, Swelling and Redness, Drainage, Nausea and/or Vomiting Other/Special Instructions: Transfering to higher level of care - Discharge Plan *PRESCRIPTION DRUG MONITORING PROGRAM REVIEWED*: Not Applicable *COPY OF PRESCRIPTION DRUG MONITORING REPORT IN PATIENT JACY: Not Applicable Prescriptions/Med Rec: Albuterol/Ipratropium [Combivent Respimat] 1 hr INH QID 30 Days #1 inhaler dexAMETHasone [Dexamethasone] 6 mg PO DAILY 2 Days #2 tablet Albuterol/Ipratropium [DuoNeb 3.0-0.5 MG/3 ML] 3 ml NEB Q4HRRT PRN 30 Days #1 neb PRN Reason: dyspnea,wheezing Enoxaparin [Lovenox] 40 mg SUBCUT Q24H 30 Days #30 syringe Pantoprazole [ProTONIX] 40 mg PO BIDAC 30 Days #60 tab.cr guaiFENesin [Robitussin] 100 mg PO Q6H PRN 30 Days #1 cup PRN Reason: Cough Budesonide/Formoterol [Symbicort 160-4.5 MCG] 6 gm INH BID 1 Days #1 inhaler Ondansetron [Zofran ODT] 4 mg PO Q4H PRN 5 Days #20 tab.dis PRN Reason: nausea, able to take PO Home Medications: Home Meds Gabapentin [Neurontin] 600 mg PO TID 12/15/19 [History] Metoprolol Tartrate 25 mg PO BID 12/15/19 [History] Pravastatin [Pravachol] 20 mg PO BEDTIME 12/15/19 [History] lisinopriL [Lisinopril] 5 mg PO DAILY 12/15/19 [History] Budesonide/Formoterol [Symbicort 160-4.5 MCG] 2 inh IH BID 09/05/20 [History] Omeprazole 20 mg PO DAILY 09/05/20 [History] Acetaminophen [Tylenol] 650 mg PO Q4H PRN tablet 09/07/20 [Rx] Albuterol/Ipratropium [Combivent Respimat] 0 gm INH Q4H inhaler 09/07/20 [Rx] Azithromycin [Zithromax] 500 mg PO Q24H #4 tablet 09/07/20 [Rx] Cefdinir 300 mg PO BID #8 capsule 09/07/20 [Rx] Acetaminophen [Tylenol] 650 mg PO Q4H PRN tablet 09/19/20 [Rx] Albuterol/Ipratropium [Combivent Respimat] 1 hr INH QID 30 Days #1 inhaler 09/19/20 [Rx] Albuterol/Ipratropium [DuoNeb 3.0-0.5 MG/3 ML] 3 ml NEB Q4HRRT PRN 30 Days #1 neb 09/19/20 [Rx] Budesonide/Formoterol [Symbicort 160-4.5 MCG] 6 gm INH BID 1 Days #1 inhaler 09/19/20 [Rx] Enoxaparin [Lovenox] 40 mg SUBCUT Q24H 30 Days #30 syringe 09/19/20 [Rx] Ondansetron [Zofran ODT] 4 mg PO Q4H PRN 5 Days #20 tab.dis 09/19/20 [Rx] Pantoprazole [ProTONIX] 40 mg PO BIDAC 30 Days #60 tab.cr 09/19/20 [Rx] dexAMETHasone [Dexamethasone] 6 mg PO DAILY 2 Days #2 tablet 09/19/20 [Rx] guaiFENesin [Robitussin] 100 mg PO Q6H PRN 30 Days #1 cup 09/19/20 [Rx] Oxygen Therapy Mode: Mechanical Ventilation Maintain SpO2% greater than: 88 Forms: ED Department Discharge Referrals: Stella Wilhelm NP [Nurse Practitioner] - 09/22/20 8:30 am - Discharge Summary/Plan Comment DC Time >30 min.: Yes (required transfer to [facility] for higher level of care post intubation) Discharge Summary/Plan Comment: DR. Morgan and Dr. Chatterjee were kind enough to accept patient for higher level of care. Their support is very much appreciated. Pt has been intubated, with aaron and OG tube placed, will travel via air. - Patient Data Vitals - Most Recent: Last Vital Signs Temp 98.8 F 09/19/20 07:58 Pulse 78 09/19/20 08:01 Resp 20 09/19/20 10:20 BP 114/75 09/19/20 10:14 Pulse Ox 89 L 09/19/20 10:20 Weight - Most Recent: 112.083 kg I&O - Last 24 hours: Intake & Output 09/19/20 09/19/20 09/19/20 06:59 14:59 22:59 Intake Total 400 Output Total 550 Balance -150 Lab Results - Last 24 hrs: Laboratory Results - last 24 hr 09/19/20 09/19/20 09/19/20 Range/Units 05:38 05:38 11:00 WBC 16.63 H (4.0-11.0) K/uL RBC 4.69 (4.50-5.90) M/uL Hgb 14.1 (13.0-17.0) g/dL Hct 44.4 (38.0-50.0) % MCV 94.7 (80.0-98.0) fL MCH 30.1 (27.0-32.0) pg MCHC 31.8 (31.0-37.0) g/dL RDW Std Deviation 49.0 (28.0-62.0) fl RDW Coeff of Sheba 14 (11.0-15.0) % Plt Count 155 (150-400) K/uL MPV 10.70 (7.40-12.00) fL Add Manual Diff YES Neutrophils % (Manual) 81 H (48.0-80.0) % Band Neutrophils % 6 % Lymphocytes % (Manual) 11 L (16.0-40.0) % Monocytes % (Manual) 2 (0.0-15.0) % Nucleated RBC % 0.0 /100WBC Absolute Seg Neuts 13.5 H (1.4-5.7) Band Neutrophils # 1.0 Lymphocytes # (Manual) 1.8 (0.6-2.4) Monocytes # (Manual) 0.3 (0.0-0.8) Nucleated RBCs # 0 K/uL ABG pH (7.35-7.45) ABG pCO2 (35-45) mmHG ABG pO2 (75-100) mmHG ABG HCO3 (22-26) mEq/L ABG Total CO2 ABG Base Excess (-2.0-2.0) Sodium 141 (136-148) mmol/L Potassium 4.7 (3.5-5.1) mmol/L Chloride 103 (98-107) mmol/L Carbon Dioxide 28.9 (21.0-32.0) mmol/L BUN 30 H (7.0-18.0) mg/dL Creatinine 1.0 (0.8-1.3) mg/dL Est Cr Clr Drug Dosing 71.02 mL/min Estimated GFR (MDRD) > 60.0 ml/min Glucose 144 H (74-106) mg/dL Calcium 8.6 (8.5-10.1) mg/dL Phosphorus 2.9 (2.6-4.7) mg/dL Magnesium 1.9 (1.8-2.4) mg/dL Total Bilirubin 0.4 (0.2-1.0) mg/dL AST 30 (15-37) IU/L ALT 16 (14-63) IU/L Alkaline Phosphatase 104 (46-116) U/L Total Protein 5.7 L (6.4-8.2) g/dL Albumin 2.2 L (3.4-5.0) g/dL Globulin 3.5 (2.6-4.0) g/dL Albumin/Globulin Ratio 0.6 L (0.9-1.6) Urine Color YELLOW Urine Appearance SLT CLOUDY Urine pH 6.0 (5.0-8.0) Ur Specific [place] 1.025 (1.001-1.035) Urine Protein 30 H (NEGATIVE) mg/dL Urine Glucose (UA) 250 H (NEGATIVE) mg/dL Urine Ketones NEGATIVE (NEGATIVE) mg/dL Urine Occult Blood TRACE-INTACT H (NEGATIVE) Urine Nitrite NEGATIVE (NEGATIVE) Urine Bilirubin NEGATIVE (NEGATIVE) Urine Urobilinogen 0.2 (<2.0) EU/dL Ur Leukocyte Esterase NEGATIVE (NEGATIVE) Urine RBC 0-2 (0-2/HPF) Urine WBC 0-2 (0-5/HPF) Ur Epithelial Cells RARE (NONE-FEW) Urine Bacteria RARE (NEGATIVE) Urine Yeast MODERATE Urinalysis Comment 09/19/20 Range/Units 15:05 WBC (4.0-11.0) K/uL RBC (4.50-5.90) M/uL Hgb (13.0-17.0) g/dL Hct (38.0-50.0) % MCV (80.0-98.0) fL MCH (27.0-32.0) pg MCHC (31.0-37.0) g/dL RDW Std Deviation (28.0-62.0) fl RDW Coeff of Sheba (11.0-15.0) % Plt Count (150-400) K/uL MPV (7.40-12.00) fL Add Manual Diff Neutrophils % (Manual) (48.0-80.0) % Band Neutrophils % % Lymphocytes % (Manual) (16.0-40.0) % Monocytes % (Manual) (0.0-15.0) % Nucleated RBC % /100WBC Absolute Seg Neuts (1.4-5.7) Band Neutrophils # Lymphocytes # (Manual) (0.6-2.4) Monocytes # (Manual) (0.0-0.8) Nucleated RBCs # K/uL ABG pH 7.441 (7.35-7.45) ABG pCO2 40 (35-45) mmHG ABG pO2 82 (75-100) mmHG ABG HCO3 27 H (22-26) mEq/L ABG Total CO2 24.0 ABG Base Excess 2.9 H (-2.0-2.0) Sodium (136-148) mmol/L Potassium (3.5-5.1) mmol/L Chloride (98-107) mmol/L Carbon Dioxide (21.0-32.0) mmol/L BUN (7.0-18.0) mg/dL Creatinine (0.8-1.3) mg/dL Est Cr Clr Drug Dosing mL/min Estimated GFR (MDRD) ml/min Glucose (74-106) mg/dL Calcium (8.5-10.1) mg/dL Phosphorus (2.6-4.7) mg/dL Magnesium (1.8-2.4) mg/dL Total Bilirubin (0.2-1.0) mg/dL AST (15-37) IU/L ALT (14-63) IU/L Alkaline Phosphatase (46-116) U/L Total Protein (6.4-8.2) g/dL Albumin (3.4-5.0) g/dL Globulin (2.6-4.0) g/dL Albumin/Globulin Ratio (0.9-1.6) Urine Color Urine Appearance Urine pH (5.0-8.0) Ur Specific [place] (1.001-1.035) Urine Protein (NEGATIVE) mg/dL Urine Glucose (UA) (NEGATIVE) mg/dL Urine Ketones (NEGATIVE) mg/dL Urine Occult Blood (NEGATIVE) Urine Nitrite (NEGATIVE) Urine Bilirubin (NEGATIVE) Urine Urobilinogen (<2.0) EU/dL Ur Leukocyte Esterase (NEGATIVE) Urine RBC (0-2/HPF) Urine WBC (0-5/HPF) Ur Epithelial Cells (NONE-FEW) Urine Bacteria (NEGATIVE) Urine Yeast Urinalysis Comment Med Orders - Current: Current Medications Acetaminophen (Tylenol) 650 mg PO Q4H PRN PRN Reason: Pain (Mild 1-3)/fever Last Admin: 09/19/20 01:11 Dose: 650 mg Documented by: Albuterol/Ipratropium (Duoneb 3.0-0.5 Mg/3 Ml) 3 ml NEB Q4HRRT PRN PRN Reason: dyspnea,wheezing Last Admin: 09/19/20 14:23 Dose: 3 ml Documented by: Albuterol/Ipratropium (Combivent Respimat) 0 gm INH QID [facility] Last Admin: 09/19/20 11:13 Dose: 1 puff Documented by: Budesonide/Formoterol Fumarate (Symbicort 160-4.5 Mcg) 0 gm INH BID [facility] Last Admin: 09/19/20 08:19 Dose: 1 puff Documented by: Dexamethasone (Dexamethasone) 6 mg PO DAILY [facility] Stop: 09/20/20 10:00 Last Admin: 09/19/20 08:00 Dose: 6 mg Documented by: Enoxaparin Sodium (Lovenox) 40 mg SUBCUT Q24H [facility] Last Admin: 09/18/20 16:57 Dose: 40 mg Documented by: Gabapentin (Neurontin) 600 mg PO TID [facility] Last Admin: 09/19/20 05:17 Dose: 600 mg Documented by: Guaifenesin (Robitussin) 100 mg PO Q6H PRN PRN Reason: Cough Last Admin: 09/19/20 01:42 Dose: 100 mg Documented by: Lisinopril (Prinivil) 5 mg PO DAILY [facility] Last Admin: 09/19/20 08:01 Dose: 5 mg Documented by: Metoprolol Tartrate (Lopressor) 12.5 mg PO BID [facility] Last Admin: 09/19/20 08:01 Dose: 12.5 mg Documented by: Ondansetron HCl (Zofran Odt) 4 mg PO Q4H PRN PRN Reason: nausea, able to take PO Last Admin: 09/19/20 02:18 Dose: 4 mg Documented by: Pantoprazole Sodium (Protonix) 40 mg PO BIDAC [facility] Last Admin: 09/19/20 06:30 Dose: 40 mg Documented by: Pravastatin Sodium (Pravachol) 20 mg PO BEDTIME [facility] Last Admin: 09/18/20 20:01 Dose: 20 mg Documented by: Discontinued Medications Albuterol/Ipratropium (Duoneb 3.0-0.5 Mg/3 Ml) 3 ml NEB Q4HRRT PRN PRN Reason: Shortness Of Breath/wheezing Last Admin: 09/15/20 15:15 Dose: 3 ml Documented by: Albuterol/Ipratropium (Duoneb 3.0-0.5 Mg/3 Ml) 3 ml NEB Q4HRRT [facility] Aspirin (Aspirin) 81 mg PO ONETIME ONE Stop: 09/18/20 07:51 Last Admin: 09/18/20 07:56 Dose: 81 mg Documented by: Cefdinir (Omnicef) 300 mg PO BID [facility] Last Admin: 09/19/20 08:02 Dose: 300 mg Documented by: Fentanyl (Sublimaze) Confirm Administered Dose 200 mcg .ROUTE .STK-MED ONE Stop: 09/19/20 14:48 Furosemide (Lasix) 20 mg IVPUSH NOW ONE Stop: 09/14/20 14:25 Last Admin: 09/14/20 20:19 Dose: Not Given Documented by: Furosemide (Lasix) 20 mg IVPUSH ONETIME ONE Stop: 09/16/20 12:01 Last Admin: 09/16/20 12:23 Dose: 20 mg Documented by: Furosemide (Lasix) 20 mg IVPUSH NOW ONE Stop: 09/17/20 10:46 Last Admin: 09/17/20 11:17 Dose: 20 mg Documented by: Remdesivir 200 mg/ Sodium (Chloride) 250 mls @ 250 mls/hr IV ONETIME ONE Stop: 09/11/20 17:08 Last Admin: 09/11/20 20:36 Dose: 250 mls/hr Documented by: Cefepime HCl 2 gm/ Premix 50 mls @ 100 mls/hr IV Q8H [facility] Last Admin: 09/13/20 11:39 Dose: 100 mls/hr Documented by: Doxycycline Hyclate 100 mg/ (Sodium Chloride) 100 mls @ 100 mls/hr IV Q12H [facility] Stop: 09/18/20 17:31 Last Admin: 09/11/20 22:52 Dose: Not Given Documented by: Remdesivir 100 mg/ Sodium (Chloride) 100 mls @ 100 mls/hr IV Q24H [facility] Stop: 09/15/20 18:44 Last Admin: 09/14/20 20:20 Dose: Not Given Documented by: Pantoprazole Sodium 40 mg/ (Sodium Chloride) 10 mls @ 300 mls/hr IV Q24H [facility] Last Admin: 09/11/20 23:00 Dose: Not Given Documented by: Doxycycline Hyclate 100 mg/ (Sodium Chloride) 100 mls @ 100 mls/hr IV Q12H [facility] Last Admin: 09/11/20 22:52 Dose: 100 mls/hr Documented by: Pantoprazole Sodium 40 mg/ (Sodium Chloride) 10 mls @ 300 mls/hr IV Q24H [facility] Last Admin: 09/14/20 22:06 Dose: Not Given Documented by: Doxycycline Hyclate 100 mg/ (Sodium Chloride) 100 mls @ 100 mls/hr IV Q12H [facility] Last Admin: 09/14/20 22:06 Dose: Not Given Documented by: Vancomycin HCl 1.75 gm/ Premix 350 mls @ 175 mls/hr IV Q12H [facility] Last Admin: 09/14/20 11:01 Dose: Not Given Documented by: Cefepime HCl 2 gm/ Premix 50 mls @ 100 mls/hr IV Q8H [facility] Last Admin: 09/14/20 20:24 Dose: Not Given Documented by: Vancomycin HCl 1.75 gm/ Premix 350 mls @ 175 mls/hr IV Q12H [facility] Last Admin: 09/14/20 22:59 Dose: Not Given Documented by: Remdesivir 100 mg/ Sodium (Chloride) 100 mls @ 100 mls/hr IV Q24H [facility] Stop: 09/16/20 16:59 Last Admin: 09/16/20 16:45 Dose: 100 mls/hr Documented by: Remdesivir 100 mg/ Sodium (Chloride) 100 mls @ 100 mls/hr IV Q24H [facility] Stop: 09/17/20 22:59 Remdesivir 100 mg/ Sodium (Chloride) 100 mls @ 100 mls/hr IV Q24H [facility] Stop: 09/18/20 16:59 Last Admin: 09/17/20 18:23 Dose: Not Given Documented by: Propofol (Diprivan 100 Ml) Confirm Administered Dose 100 mls @ as directed .ROUTE .[facility]-MED ONE Stop: 09/19/20 15:28 Iopamidol (Isovue Multipack-370 (76%)) 100 ml IVPUSH ONETIME ONE Stop: 09/11/20 19:31 Last Admin: 09/11/20 19:31 Dose: 100 ml Documented by: Ketorolac Tromethamine (Toradol) 15 mg IVPUSH ONETIME ONE Stop: 09/18/20 14:14 Last Admin: 09/18/20 15:57 Dose: 15 mg Documented by: Ketorolac Tromethamine (Toradol) 15 mg IVPUSH ONETIME ONE Stop: 09/19/20 01:27 Last Admin: 09/19/20 01:33 Dose: 15 mg Documented by: Levofloxacin (Levaquin) 750 mg PO Q24H [facility] Last Admin: 09/18/20 22:47 Dose: 750 mg Documented by: Linezolid (Zyvox) 600 mg PO Q12H [facility] Last Admin: 09/18/20 11:35 Dose: 600 mg Documented by: Lorazepam (Ativan) Confirm Administered Dose 2 mg .ROUTE .STK-MED ONE Stop: 09/15/20 14:26 Last Admin: 09/15/20 15:28 Dose: 1 mg Documented by: Lorazepam (Ativan) 1 mg IVPUSH ONETIME ONE Stop: 09/15/20 15:26 Last Admin: 09/15/20 19:00 Dose: Not Given Documented by: Lorazepam (Ativan) 1 mg IVPUSH ONETIME ONE Stop: 09/16/20 21:38 Last Admin: 09/17/20 03:00 Dose: Not Given Documented by: Lorazepam (Ativan) 1 mg IVPUSH ONETIME ONE Stop: 09/17/20 03:35 Last Admin: 09/17/20 03:45 Dose: 1 mg Documented by: Methylprednisolone Sodium Succinate (Solu-Medrol) 125 mg IM ONETIME ONE Stop: 09/11/20 17:16 Last Admin: 09/11/20 22:50 Dose: 125 mg Documented by: Methylprednisolone Sodium Succinate (Solu-Medrol) 125 mg IM BID [facility] Last Admin: 09/12/20 08:28 Dose: 125 mg Documented by: Methylprednisolone Sodium Succinate (Solu-Medrol) 125 mg IM ONETIME ONE Stop: 09/11/20 22:01 Last Admin: 09/11/20 22:51 Dose: Not Given Documented by: Methylprednisolone Sodium Succinate (Solu-Medrol) 125 mg IVPUSH Q12H [facility] Last Admin: 09/13/20 09:26 Dose: 125 mg Documented by: Methylprednisolone Sodium Succinate (Solu-Medrol) 125 mg IVPUSH DAILY [facility] Last Admin: 09/14/20 09:55 Dose: 125 mg Documented by: Metoprolol Tartrate (Lopressor) 25 mg PO BID [facility] Last Admin: 09/14/20 10:59 Dose: Not Given Documented by: Midazolam HCl (Versed 1 Mg/Ml) Confirm Administered Dose 4 mg .ROUTE .STK-MED ONE Stop: 09/19/20 14:49 Morphine Sulfate (Morphine) 2 mg IVPUSH ONETIME ONE Stop: 09/18/20 07:53 Last Admin: 09/18/20 09:38 Dose: Not Given Documented by: Non-Formulary Medication (Gabapentin) 600 mg PO TID [facility] Last Admin: 09/11/20 23:51 Dose: Not Given Documented by: Non-Formulary Medication (Pravastatin) 20 mg PO BEDTIME [facility] Last Admin: 09/11/20 23:52 Dose: Not Given Documented by: Budesonide/Formoterol 160-4.5 Mcg/Puff 6 Gm Inhaler 2 each INH BID [facility] Last Admin: 09/17/20 09:16 Dose: Not Given Documented by: Prednisone (Prednisone) 40 mg PO BID [facility] Stop: 09/17/20 23:59 Last Admin: 09/17/20 20:39 Dose: 40 mg Documented by: Sodium Phosphate (Neutra-Phos) 250 mg PO ONETIME ONE Stop: 09/16/20 11:03 Last Admin: 09/16/20 12:21 Dose: 250 mg Documented by: <Florin Jewell - Last Filed: 09/19/20 23:13> Discharge Summary - Referral to Home Health Primary Care Physician: PCP None - Discharge Diagnosis/Problem(s) (1) COVID-19 SNOMED Code(s): 072556152 ICD Code: U07.1 - COVID-19 Status: Acute (2) CAP (community acquired pneumonia) SNOMED Code(s): 517151379 ICD Code: J18.9 - PNEUMONIA, UNSPECIFIED ORGANISM Status: Acute (3) COPD (chronic obstructive pulmonary disease) case management patient SNOMED Code(s): 072973582, 149266413, 383965817 ICD Code: [id number] - Status: Acute Priority: High (4) Chronic pain disorder SNOMED Code(s): 816002877 ICD Code: G89.4 - CHRONIC PAIN SYNDROME Status: Acute (5) Acute respiratory failure with hypoxia SNOMED Code(s): 68524334, 762570736 ICD Code: J96.01 - ACUTE RESPIRATORY FAILURE WITH HYPOXIA Status: Acute - Patient Summary/Data Consults: Consultations 09/14/20 10:18 Consult to Spiritual Care [CONS] Routine - Discharge Summary/Plan Comment Discharge Summary/Plan Comment: I have seen and evaluated the patient and agree with the residents note unless specified in my note Patient was admitted for COVID pneumonia, was started on IV antibiotics for possible superimposed bacterial PNA, remdesivir, steroids, DuoNEbs, Lovenox ans oxygen, Patient had a long hospital course complicated by worsening Hypoxic respiratory failure, for which he required continued BiPAP support, later we were able to wean him off BiPAP to High flow. Patient was full code on admission, during hospital stay he briefly changed his code status to DNR/DNI, but this AM after his oxygen demand increased again, he was unable to tolerate BIPAP, and was open to be intubated instead, code status was changed back to full code upon patients request. Patient was explained risks and benefits thoroughly, Surgery inserted IJ due to lack of proper IV during intubation. Patient was successful intubated and shipped to a higher level of care facility. - Patient Data Vitals - Most Recent: Last Vital Signs Temp 36.8 C 09/19/20 16:00 Pulse 78 09/19/20 08:01 Resp 22 H 09/19/20 16:00 BP 125/63 09/19/20 16:00 Pulse Ox 87 L 09/19/20 16:00 I&O - Last 24 hours: Intake & Output 09/19/20 09/19/20 09/20/20 14:59 22:59 06:59 Intake Total 472 Balance 472 Lab Results - Last 24 hrs: Laboratory Results - last 24 hr 09/19/20 09/19/20 09/19/20 Range/Units 05:38 05:38 11:00 WBC 16.63 H (4.0-11.0) K/uL RBC 4.69 (4.50-5.90) M/uL Hgb 14.1 (13.0-17.0) g/dL Hct 44.4 (38.0-50.0) % MCV 94.7 (80.0-98.0) fL MCH 30.1 (27.0-32.0) pg MCHC 31.8 (31.0-37.0) g/dL RDW Std Deviation 49.0 (28.0-62.0) fl RDW Coeff of Sheba 14 (11.0-15.0) % Plt Count 155 (150-400) K/uL MPV 10.70 (7.40-12.00) fL Add Manual Diff YES Neutrophils % (Manual) 81 H (48.0-80.0) % Band Neutrophils % 6 % Lymphocytes % (Manual) 11 L (16.0-40.0) % Monocytes % (Manual) 2 (0.0-15.0) % Nucleated RBC % 0.0 /100WBC Absolute Seg Neuts 13.5 H (1.4-5.7) Band Neutrophils # 1.0 Lymphocytes # (Manual) 1.8 (0.6-2.4) Monocytes # (Manual) 0.3 (0.0-0.8) Nucleated RBCs # 0 K/uL ABG pH (7.35-7.45) ABG pCO2 (35-45) mmHG ABG pO2 (75-100) mmHG ABG HCO3 (22-26) mEq/L ABG Total CO2 ABG Base Excess (-2.0-2.0) Sodium 141 (136-148) mmol/L Potassium 4.7 (3.5-5.1) mmol/L Chloride 103 (98-107) mmol/L Carbon Dioxide 28.9 (21.0-32.0) mmol/L BUN 30 H (7.0-18.0) mg/dL Creatinine 1.0 (0.8-1.3) mg/dL Est Cr Clr Drug Dosing 71.02 mL/min Estimated GFR (MDRD) > 60.0 ml/min Glucose 144 H (74-106) mg/dL Calcium 8.6 (8.5-10.1) mg/dL Phosphorus 2.9 (2.6-4.7) mg/dL Magnesium 1.9 (1.8-2.4) mg/dL Total Bilirubin 0.4 (0.2-1.0) mg/dL AST 30 (15-37) IU/L ALT 16 (14-63) IU/L Alkaline Phosphatase 104 (46-116) U/L Total Protein 5.7 L (6.4-8.2) g/dL Albumin 2.2 L (3.4-5.0) g/dL Globulin 3.5 (2.6-4.0) g/dL Albumin/Globulin Ratio 0.6 L (0.9-1.6) Urine Color YELLOW Urine Appearance SLT CLOUDY Urine pH 6.0 (5.0-8.0) Ur Specific [place] 1.025 (1.001-1.035) Urine Protein 30 H (NEGATIVE) mg/dL Urine Glucose (UA) 250 H (NEGATIVE) mg/dL Urine Ketones NEGATIVE (NEGATIVE) mg/dL Urine Occult Blood TRACE-INTACT H (NEGATIVE) Urine Nitrite NEGATIVE (NEGATIVE) Urine Bilirubin NEGATIVE (NEGATIVE) Urine Urobilinogen 0.2 (<2.0) EU/dL Ur Leukocyte Esterase NEGATIVE (NEGATIVE) Urine RBC 0-2 (0-2/HPF) Urine WBC 0-2 (0-5/HPF) Ur Epithelial Cells RARE (NONE-FEW) Urine Bacteria RARE (NEGATIVE) Urine Yeast MODERATE Urinalysis Comment 09/19/20 Range/Units 15:05 WBC (4.0-11.0) K/uL RBC (4.50-5.90) M/uL Hgb (13.0-17.0) g/dL Hct (38.0-50.0) % MCV (80.0-98.0) fL MCH (27.0-32.0) pg MCHC (31.0-37.0) g/dL RDW Std Deviation (28.0-62.0) fl RDW Coeff of [place] (11.0-15.0) % Plt Count (150-400) K/uL MPV (7.40-12.00) fL Add Manual Diff Neutrophils % (Manual) (48.0-80.0) % Band Neutrophils % % Lymphocytes % (Manual) (16.0-40.0) % Monocytes % (Manual) (0.0-15.0) % Nucleated RBC % /100WBC Absolute Seg Neuts (1.4-5.7) Band Neutrophils # Lymphocytes # (Manual) (0.6-2.4) Monocytes # (Manual) (0.0-0.8) Nucleated RBCs # K/uL ABG pH 7.441 (7.35-7.45) ABG pCO2 40 (35-45) mmHG ABG pO2 82 (75-100) mmHG ABG HCO3 27 H (22-26) mEq/L ABG Total CO2 24.0 ABG Base Excess 2.9 H (-2.0-2.0) Sodium (136-148) mmol/L Potassium (3.5-5.1) mmol/L Chloride (98-107) mmol/L Carbon Dioxide (21.0-32.0) mmol/L BUN (7.0-18.0) mg/dL Creatinine (0.8-1.3) mg/dL Est Cr Clr Drug Dosing mL/min Estimated GFR (MDRD) ml/min Glucose (74-106) mg/dL Calcium (8.5-10.1) mg/dL Phosphorus (2.6-4.7) mg/dL Magnesium (1.8-2.4) mg/dL Total Bilirubin (0.2-1.0) mg/dL AST (15-37) IU/L ALT (14-63) IU/L Alkaline Phosphatase (46-116) U/L Total Protein (6.4-8.2) g/dL Albumin (3.4-5.0) g/dL Globulin (2.6-4.0) g/dL Albumin/Globulin Ratio (0.9-1.6) Urine Color Urine Appearance Urine pH (5.0-8.0) Ur Specific [place] (1.001-1.035) Urine Protein (NEGATIVE) mg/dL Urine Glucose (UA) (NEGATIVE) mg/dL Urine Ketones (NEGATIVE) mg/dL Urine Occult Blood (NEGATIVE) Urine Nitrite (NEGATIVE) Urine Bilirubin (NEGATIVE) Urine Urobilinogen (<2.0) EU/dL Ur Leukocyte Esterase (NEGATIVE) Urine RBC (0-2/HPF) Urine WBC (0-5/HPF) Ur Epithelial Cells (NONE-FEW) Urine Bacteria (NEGATIVE) Urine Yeast Urinalysis Comment Med Orders - Current: Current Medications Discontinued Medications Acetaminophen (Tylenol) 650 mg PO Q4H PRN PRN Reason: Pain (Mild 1-3)/fever Last Admin: 09/19/20 01:11 Dose: 650 mg Documented by: Albuterol/Ipratropium (Duoneb 3.0-0.5 Mg/3 Ml) 3 ml NEB Q4HRRT PRN PRN Reason: Shortness Of Breath/wheezing Last Admin: 09/15/20 15:15 Dose: 3 ml Documented by: Albuterol/Ipratropium (Duoneb 3.0-0.5 Mg/3 Ml) 3 ml NEB Q4HRRT [facility] Albuterol/Ipratropium (Duoneb 3.0-0.5 Mg/3 Ml) 3 ml NEB Q4HRRT PRN PRN Reason: dyspnea,wheezing Last Admin: 09/19/20 14:23 Dose: 3 ml Documented by: Albuterol/Ipratropium (Combivent Respimat) 0 gm INH QID [facility] Last Admin: 09/19/20 11:13 Dose: 1 puff Documented by: Aspirin (Aspirin) 81 mg PO ONETIME ONE Stop: 09/18/20 07:51 Last Admin: 09/18/20 07:56 Dose: 81 mg Documented by: Budesonide/Formoterol Fumarate (Symbicort 160-4.5 Mcg) 0 gm INH BID [facility] Last Admin: 09/19/20 08:19 Dose: 1 puff Documented by: Cefdinir (Omnicef) 300 mg PO BID [facility] Last Admin: 09/19/20 08:02 Dose: 300 mg Documented by: Dexamethasone (Dexamethasone) 6 mg PO DAILY [facility] Stop: 09/20/20 10:00 Last Admin: 09/19/20 08:00 Dose: 6 mg Documented by: Enoxaparin Sodium (Lovenox) 40 mg SUBCUT Q24H [facility] Last Admin: 09/18/20 16:57 Dose: 40 mg Documented by: Fentanyl (Sublimaze) Confirm Administered Dose 200 mcg .ROUTE .STK-MED ONE Stop: 09/19/20 14:48 Fentanyl (Sublimaze) Confirm Administered Dose 100 mcg .ROUTE .STK-MED ONE Stop: 09/19/20 16:14 Furosemide (Lasix) 20 mg IVPUSH NOW ONE Stop: 09/14/20 14:25 Last Admin: 09/14/20 20:19 Dose: Not Given Documented by: Furosemide (Lasix) 20 mg IVPUSH ONETIME ONE Stop: 09/16/20 12:01 Last Admin: 09/16/20 12:23 Dose: 20 mg Documented by: Furosemide (Lasix) 20 mg IVPUSH NOW ONE Stop: 09/17/20 10:46 Last Admin: 09/17/20 11:17 Dose: 20 mg Documented by: Gabapentin (Neurontin) 600 mg PO TID [facility] Last Admin: 09/19/20 15:00 Dose: Not Given Documented by: Guaifenesin (Robitussin) 100 mg PO Q6H PRN PRN Reason: Cough Last Admin: 09/19/20 01:42 Dose: 100 mg Documented by: Remdesivir 200 mg/ Sodium (Chloride) 250 mls @ 250 mls/hr IV ONETIME ONE Stop: 09/11/20 17:08 Last Admin: 09/11/20 20:36 Dose: 250 mls/hr Documented by: Cefepime HCl 2 gm/ Premix 50 mls @ 100 mls/hr IV Q8H [facility] Last Admin: 09/13/20 11:39 Dose: 100 mls/hr Documented by: Doxycycline Hyclate 100 mg/ (Sodium Chloride) 100 mls @ 100 mls/hr IV Q12H [facility] Stop: 09/18/20 17:31 Last Admin: 09/11/20 22:52 Dose: Not Given Documented by: Remdesivir 100 mg/ Sodium (Chloride) 100 mls @ 100 mls/hr IV Q24H [facility] Stop: 09/15/20 18:44 Last Admin: 09/14/20 20:20 Dose: Not Given Documented by: Pantoprazole Sodium 40 mg/ (Sodium Chloride) 10 mls @ 300 mls/hr IV Q24H [facility] Last Admin: 09/11/20 23:00 Dose: Not Given Documented by: Doxycycline Hyclate 100 mg/ (Sodium Chloride) 100 mls @ 100 mls/hr IV Q12H [facility] Last Admin: 09/11/20 22:52 Dose: 100 mls/hr Documented by: Pantoprazole Sodium 40 mg/ (Sodium Chloride) 10 mls @ 300 mls/hr IV Q24H [facility] Last Admin: 09/14/20 22:06 Dose: Not Given Documented by: Doxycycline Hyclate 100 mg/ (Sodium Chloride) 100 mls @ 100 mls/hr IV Q12H [facility] Last Admin: 09/14/20 22:06 Dose: Not Given Documented by: Vancomycin HCl 1.75 gm/ Premix 350 mls @ 175 mls/hr IV Q12H [facility] Last Admin: 09/14/20 11:01 Dose: Not Given Documented by: Cefepime HCl 2 gm/ Premix 50 mls @ 100 mls/hr IV Q8H [facility] Last Admin: 09/14/20 20:24 Dose: Not Given Documented by: Vancomycin HCl 1.75 gm/ Premix 350 mls @ 175 mls/hr IV Q12H [facility] Last Admin: 09/14/20 22:59 Dose: Not Given Documented by: Remdesivir 100 mg/ Sodium (Chloride) 100 mls @ 100 mls/hr IV Q24H [facility] Stop: 09/16/20 16:59 Last Admin: 09/16/20 16:45 Dose: 100 mls/hr Documented by: Remdesivir 100 mg/ Sodium (Chloride) 100 mls @ 100 mls/hr IV Q24H [facility] Stop: 09/17/20 22:59 Remdesivir 100 mg/ Sodium (Chloride) 100 mls @ 100 mls/hr IV Q24H [facility] Stop: 09/18/20 16:59 Last Admin: 09/17/20 18:23 Dose: Not Given Documented by: Propofol (Diprivan 100 Ml) Confirm Administered Dose 100 mls @ as directed .ROUTE .STK-MED ONE Stop: 09/19/20 15:28 Iopamidol (Isovue Multipack-370 (76%)) 100 ml IVPUSH ONETIME ONE Stop: 09/11/20 19:31 Last Admin: 09/11/20 19:31 Dose: 100 ml Documented by: Ketorolac Tromethamine (Toradol) 15 mg IVPUSH ONETIME ONE Stop: 09/18/20 14:14 Last Admin: 09/18/20 15:57 Dose: 15 mg Documented by: Ketorolac Tromethamine (Toradol) 15 mg IVPUSH ONETIME ONE Stop: 09/19/20 01:27 Last Admin: 09/19/20 01:33 Dose: 15 mg Documented by: Levofloxacin (Levaquin) 750 mg PO Q24H [facility] Last Admin: 09/18/20 22:47 Dose: 750 mg Documented by: Linezolid (Zyvox) 600 mg PO Q12H [facility] Last Admin: 09/18/20 11:35 Dose: 600 mg Documented by: Lisinopril (Prinivil) 5 mg PO DAILY [facility] Last Admin: 09/19/20 08:01 Dose: 5 mg Documented by: Lorazepam (Ativan) Confirm Administered Dose 2 mg .ROUTE .STK-MED ONE Stop: 09/15/20 14:26 Last Admin: 09/15/20 15:28 Dose: 1 mg Documented by: Lorazepam (Ativan) 1 mg IVPUSH ONETIME ONE Stop: 09/15/20 15:26 Last Admin: 09/15/20 19:00 Dose: Not Given Documented by: Lorazepam (Ativan) 1 mg IVPUSH ONETIME ONE Stop: 09/16/20 21:38 Last Admin: 09/17/20 03:00 Dose: Not Given Documented by: Lorazepam (Ativan) 1 mg IVPUSH ONETIME ONE Stop: 09/17/20 03:35 Last Admin: 09/17/20 03:45 Dose: 1 mg Documented by: Methylprednisolone Sodium Succinate (Solu-Medrol) 125 mg IM ONETIME ONE Stop: 09/11/20 17:16 Last Admin: 09/11/20 22:50 Dose: 125 mg Documented by: Methylprednisolone Sodium Succinate (Solu-Medrol) 125 mg IM BID [facility] Last Admin: 09/12/20 08:28 Dose: 125 mg Documented by: Methylprednisolone Sodium Succinate (Solu-Medrol) 125 mg IM ONETIME ONE Stop: 09/11/20 22:01 Last Admin: 09/11/20 22:51 Dose: Not Given Documented by: Methylprednisolone Sodium Succinate (Solu-Medrol) 125 mg IVPUSH Q12H [facility] Last Admin: 09/13/20 09:26 Dose: 125 mg Documented by: Methylprednisolone Sodium Succinate (Solu-Medrol) 125 mg IVPUSH DAILY [facility] Last Admin: 09/14/20 09:55 Dose: 125 mg Documented by: Metoprolol Tartrate (Lopressor) 25 mg PO BID [facility] Last Admin: 09/14/20 10:59 Dose: Not Given Documented by: Metoprolol Tartrate (Lopressor) 12.5 mg PO BID [facility] Last Admin: 09/19/20 08:01 Dose: 12.5 mg Documented by: Midazolam HCl (Versed 1 Mg/Ml) Confirm Administered Dose 4 mg .ROUTE .STK-MED ONE Stop: 09/19/20 14:49 Morphine Sulfate (Morphine) 2 mg IVPUSH ONETIME ONE Stop: 09/18/20 07:53 Last Admin: 09/18/20 09:38 Dose: Not Given Documented by: Non-Formulary Medication (Gabapentin) 600 mg PO TID [facility] Last Admin: 09/11/20 23:51 Dose: Not Given Documented by: Non-Formulary Medication (Pravastatin) 20 mg PO BEDTIME [facility] Last Admin: 09/11/20 23:52 Dose: Not Given Documented by: Ondansetron HCl (Zofran Odt) 4 mg PO Q4H PRN PRN Reason: nausea, able to take PO Last Admin: 09/19/20 02:18 Dose: 4 mg Documented by: [facility] Last Admin: 09/19/20 06:30 Dose: 40 mg Documented by: Budesonide/Formoterol 160-4.5 Mcg/Puff 6 Gm Inhaler 2 each INH BID [facility] Last Admin: 09/17/20 09:16 Dose: Not Given Documented by: Pravastatin Sodium (Pravachol) 20 mg PO BEDTIME [facility] Last Admin: 09/18/20 20:01 Dose: 20 mg Documented by: Prednisone (Prednisone) 40 mg PO BID [facility] Stop: 09/17/20 23:59 Last Admin: 09/17/20 20:39 Dose: 40 mg Documented by: Sodium Phosphate (Neutra-Phos) 250 mg PO ONETIME ONE Stop: 09/16/20 11:03 Last Admin: 09/16/20 12:21 Dose: 250 mg Documented by:
--- NOTE | 2020-09-19 16:30 | CR ---
Indication: Line placement Technique: Chest 1 view Comparison: September 18, 2020 Findings/Impression: Endotracheal tube tip terminates 2.5 cm above the level of the renee. A right internal jugular central venous catheter tip terminates at the level of the cavoatrial junction. No pneumothorax. Increased patchy opacity throughout both lungs may represent edema or infection. No effusion. Stable cardiac size. Postoperative changes of a median sternotomy. Dictated by Jessica Ellison MD @ Sep 19 2020 4:27PM Signed by Dr. Jessica Ellison @ Sep 19 2020 4:29PM
--- NOTE | 2020-09-19 16:34 | PCM.SN.2 ---
- Free Text/Narrative Note: Intubation note Anesthesia time [id number]aged [address] ICU by Dr. Perkins for pt in respiratory decomposition in the presence of COVID-19. Emergent intubation requested. Pt lucid but exerting high respiratory effort on maximal bipap settings. 1531 Pre-procedure VS- BP 132/69, HR 94, O2 SAT 91% Assisted by Kremit Montague CRNA and Patricia Benavides MDA. 1536- Pt preoxygenated with 100% O2 via ambu bag. Smooth IV induction via CVL (RIJ) with 4mg Versed, 100mg propofol, 120 mg succinylcholine, and 50 mcg fentanyl. 1537- DLx1 with molina 2, grade 1 view, 8.0 ETT in without resistance. Placement verified by ETCO2 color-change, ETCO2 on monitor, bilat. lung auscultation, and eventually CXR. Secured at 23cm at the lip by RT. Initial ventilator setting- RR 22, TV 450, PIP 30, PEEP 12, 100% O2. 1544- 50mg rocuronium IV 1548- Propofol infusion initiated at 25 mcg/kg/min See RN charting/ EMR for VS. Brief overview below: 1537: BP 112/59, HR 94, O2 SAT 83% 1544: BP 93/54, HR 97, O2 SAT 84% Post- procedure at 1550: BP 102/58, HR 98, O2 SAT 87% Report given and care handed off to RT and MD Gregorio.
[2020-09-19 19:53] VITALS: BP 125/63
--- NOTE | 2020-09-19 20:35 | OR ---
SURGEON: RAKEL TEE MD DATE OF PROCEDURE: 09/19/2020 PREOPERATIVE DIAGNOSES: COVID pneumonia, poor venous access. POSTOPERATIVE DIAGNOSES: COVID pneumonia, poor venous access. PROCEDURE PERFORMED: Right internal jugular central line. PRIMARY SURGEON: Rakel Tee MD ANESTHESIA: Local. ESTIMATED BLOOD LOSS: 5 mL. COMPLICATIONS: None. INDICATIONS: The patient is a 75-year-old male who was admitted to the ICU with COVID pneumonia. The patient has had worsening respiratory status and is in need of intubation. However, the patient is a poor venous access and only has 1 small IV in the AC. There was concern that he will have hemodynamic instability during the intubation and reliable venous access is needed. I explained to the patient the need for a central line. I explained the procedure, expected perioperative course, and the risks including bleeding, infection, or damage to surrounding structures including hemothorax and pneumothorax. The patient verbalized understanding and wishes to proceed. PROCEDURE IN DETAIL: The patient was met in the ICU and placed into Trendelenburg position on the ICU bed. An ultrasound was brought into the field. I visualized the vascular anatomy of the right side of the neck. I could see both the right internal jugular vein as well as the right carotid. A time-out was completed verifying the patient's name, age, date of , allergies, and procedure to be performed. I prepped and draped the right side of the neck in sterile fashion. The ultrasound probe was brought in and I reidentified the vascular anatomy of the right side of the neck. 3 mL of 1% lidocaine plain were used to anesthetize the skin overlying the internal jugular vein. A guide needle was then placed into the internal jugular vein under ultrasound guidance. A good return of venous blood was noted. A guidewire was placed down the needle and went in without any difficulty. The guide needle was removed. An 11 blade was used to make an incision on the neck overlying the guidewire. I then dilated up the vascular tract. The dilator was removed and a triple-lumen central catheter was brought into the field. This was placed over the guidewire into the neck at 17 cm. The guidewire was removed. Good venous return was obtained from all 3 ports. These were flushed with sterile normal saline. The catheter was then secured in place using 3-0 silk sutures on either side of the catheter. Sterile dressings were applied. The patient tolerated the procedure well. A chest x- ray is currently pending to verify placement of the central line and all counts were complete and correct at the end of the case. ARTURO CASTAÑEDA /[id number] MTDD
== END 2020-09-19 16:45 | disposition critical access hospital (66) | DRG 208 ==
LOC: MW.ED 14:40 → MW.MS 15:54 → MW.ICU 09-12 11:35
PROVIDERS: ADMIT Internal Medicine; ATTEND Internal Medicine
PROC: XW033E5 Introduction of Remdesivir Anti-infective into Peripheral Vein, Percutaneous Approach, New Technology Group 5 (ICD-10-PCS; 2020-09-11)
PROC: 05HB33Z Insertion of Infusion Device into Right Basilic Vein, Percutaneous Approach (ICD-10-PCS; 2020-09-15)
PROC: B54MZZA Ultrasonography of Right Upper Extremity Veins, Guidance (ICD-10-PCS; 2020-09-15)
PROC: 05HM33Z Insertion of Infusion Device into Right Internal Jugular Vein, Percutaneous Approach (ICD-10-PCS; principal; 2020-09-19)
PROC: 5A1935Z Respiratory Ventilation, Less than 24 Consecutive Hours (ICD-10-PCS; 2020-09-19)
PROC: B543ZZA Ultrasonography of Right Jugular Veins, Guidance (ICD-10-PCS; 2020-09-19)
PROC: 0BH17EZ Insertion of Endotracheal Airway into Trachea, Via Natural or Artificial Opening (ICD-10-PCS; 2020-09-19)
DX: U07.1 COVID-19 (principal); J96.01 Acute respiratory failure with hypoxia; I11.0 Hypertensive heart disease with heart failure; J12.82 Pneumonia due to coronavirus disease 2019; J15.9 Unspecified bacterial pneumonia; J44.0 Chronic obstructive pulmonary disease with (acute) lower respiratory infection; N17.9 Acute kidney failure, unspecified; J44.9 Chronic obstructive pulmonary disease, unspecified; G89.29 Other chronic pain; I25.10 Atherosclerotic heart disease of native coronary artery without angina pectoris; Z88.0 Allergy status to penicillin; Z88.1 Allergy status to other antibiotic agents; Z95.1 Presence of aortocoronary bypass graft; I73.9 Peripheral vascular disease, unspecified; E78.5 Hyperlipidemia, unspecified; G89.4 Chronic pain syndrome; E78.00 Pure hypercholesterolemia, unspecified; I25.2 Old myocardial infarction; I10 Essential (primary) hypertension; Z87.891 Personal history of nicotine dependence; Z68.32 Body mass index [BMI] 32.0-32.9, adult; M54.9 Dorsalgia, unspecified; N42.9 Disorder of prostate, unspecified; F10.10 Alcohol abuse, uncomplicated; R00.1 Bradycardia, unspecified; E66.9 Obesity, unspecified; Z95.5 Presence of coronary angioplasty implant and graft; Z79.51 Long term (current) use of inhaled steroids; Z98.890 Other specified postprocedural states; Z90.49 Acquired absence of other specified parts of digestive tract; Z99.81 Dependence on supplemental oxygen; Z79.899 Other long term (current) drug therapy
CPT/HCPCS: 36410; 36415; 36600; 51702; 71045; 71045-26; 71275; 71275-26; 74176; 74176-26; 80053; 80202; 81001; 82248; 82550; 82803; 83605; 83690; 83735; 84100; 84145; 84484; 85025; 87040; 87070; 87077; 87186; 87205; 93005; 93010; 93306; 93971-26-LT; 93971-LT; 94002; 94640; 94660; 94667; 99283; 99285-25; A9270-GY; C9113; J0692; J1650; J1885; J1940; J2060; J2930; J3370; J3490; J7050; J7620-GY; J8540; Q9967

== ENCOUNTER 2020-12-06 16:33 | Emergency (ER) | payer MEDICARE, MEDICAID ==
--- NOTE | 2020-12-06 19:25 | CR ---
INDICATION: Shortness of breath. COMPARISON: 09/19/2020. TECHNIQUE: Single frontal, AP chest. FINDINGS: Interval extubation. The central line in the right neck has been removed. Median sternotomy change. Cardiac and mediastinal contours are not obviously changed. Extensive heterogeneous bilateral opacities slightly improved. IMPRESSION: Extensive heterogeneous bilateral opacities slightly improved Dictated by Zack Gonzalez MD @ Dec 06 2020 6:12PM (Electronically Signed)
[2020-12-06 19:28] LABS: BLOOD UREA NITROGEN,BUN 12 mg/dL (7.0-18.0); CARBON DIOXIDE,CO2 26.8 mmol/L (21.0-32.0); CHLORIDE,CL 101 mmol/L (98-107); GLUCOSE RANDOM 105 mg/dL (74-106); POTASSIUM,K 4.3 mmol/L (3.5-5.1); SODIUM,NA 139 mmol/L (136-148)
--- NOTE | 2020-12-06 19:49 | EDM.PDOC ---
<Jesus Vickers - Last Filed: 12/06/20 19:48> ED HPI GENERAL MEDICAL PROBLEM - General Chief Complaint: Respiratory Problem Stated Complaint: PAIN IN BOTH LEGS AND BREATHING DIFFICULTIES Time Seen by Provider: 12/06/20 16:49 - History of Present Illness INITIAL COMMENTS - FREE TEXT/NARRATIVE: CHIEF COMPLAINT(S): Sent in from respiratory clinic HISTORY OF PRESENT ILLNESS: This is a 75-year-old man with a past medical history of CAD status post CABG, COPD and recent COVID-19 infection in September 2020 with resultant need for home oxygen at 2 L who comes to the emergency department with a chief complaint of sent in from respiratory clinic. He states that he was here at respiratory clinic to get refills on his medications. He states that since Covid for the last 90 days he has been having shortness of breath on exertion. He states that he does use 2 L of home oxygen at home. He states that his symptoms are mainly exertional and denies any chest pain or lower extremity edema. He states that at respiratory clinic they stated that he looked uncomfortable while walking so they sent him to the emergency department. He denies any cough, fever, or chills. States that he does have chronic lower extremity edema left greater than right secondary to a frostbite injury. He denies any other symptoms. REVIEW OF SYSTEMS: Constitutional: Denies fever, chills. Eyes: Denies eye pain Ears, Nose, Mouth, & Throat: Denies earache Cardiovascular: Denies chest pain Respiratory: Positive for exertional dyspnea Gastrointestinal: Denies Nausea, vomiting, diarrhea, hematochezia. Genitourinary: Denies hematuria Skin:Denies a rash MSK: Denies joint pain Neurological: Denies blurred vision Psychiatric: Denies depression PAST MEDICAL HISTORY: As per history of present illness and as reviewed below otherwise noncontributory. SURGICAL HISTORY: As per history of present illness and as reviewed below otherwise noncontributory. SOCIAL HISTORY: As per history of present illness and as reviewed below otherwise noncontributory. FAMILY HISTORY: As per history of present illness and as reviewed below otherwise noncontributory. EXAMINATION OF ORGAN SYSTEMS/BODY AREAS: Constitutional: Blood pressure is 134/80, heart rate 84, respiratory rate 20 with an oxygen saturation 91% on room air. Temperature 35.9. Patient is 98% on 2 L nasal cannula. General: Obese gentleman who does not appear to be in acute distress. Psychiatric: Appropriate mood and affect. Eyes: No scleral icterus or conjunctival erythema ENMT: Moist mucous membranes. No pharyngeal erythema Cardiovascular: Regular, rate, and rhythm. No gallops, murmurs, or rubs. Bilateral upper extremity pulses symmetric and intact. Trace pitting edema of the lower extremities bilaterally. No JVD. Respiratory: Lungs clear to auscultation bilaterally. No wheezes, rales, or rhonchi. Patient is speaking in full sentences. Gastrointestinal: Soft, non-tender, non-distended. Normoactive bowel sounds Genitourinary: No suprapubic tenderness Musculoskeletal: Normal range of motion. Skin: No lesions or abrasions. Neurological: Alert, GCS 15 MEDICAL DECISION MAKING AND COURSE IN THE ED WITH INTERPRETATION/REVIEW OF DIAGN OSTIC STUDIES: This is a 75-year-old and with a past medical history of COPD, CAD status post stent, and recent COVID-19 infection who is on 2 L home oxygen who comes to the emergency department with exertional dyspnea and was sent here from his clinic who is hypoxic on room air but is saturating appropriately on 2 L. The patient does walk with a walker and does desaturate to the 80s while walking. Given his history we will obtain a cardiac work-up. EKG was unremarkable for any acute ST elevation IA. At this time there is no wheezing therefore I do not believe any treatment is indicated at this time. Laboratory: BMP is unremarkable. Calcium is mildly elevated at 10.5. Magnesium is 2.1. Troponin is negative. The radiological images were viewed by myself along with reading the report from the radiologist. Chest x-ray reveals interval extubation with cardiac and mediastinal contours not changed. There is bilateral opacities which are improved from prior. Time: 1655 Twelve-lead EKG interpreted by myself. Normal sinus rhythm at a rate of 81 beats per minute. None axis. NC interval is 156 ms. QRS duration is [address] segments are normal without elevations or depressions. No T wave inversions Q wave in lead III. Hypertrophy not noted. No changes demonstrated from prior EKG dated 09/11/2020. Interpretation: Sinus rhythm On reevaluation the patient continued to remain stable. We were able to obtain the patient's medication list from [facility]. At the time of reevaluation the patient saturation was appropriately continued to remain not tachycardic, hypertensive and was speaking full sentences. I did discuss with him that he would be continue to be evaluated by night team physician. DISPOSITION: Patient was signed out to oncoming night team physician pending laboratory analysis and reevaluation and final disposition CONDITION: Fair PROCEDURES: None FINAL IMPRESSION(S)/DIAGNOSES: 1. Acute on chronic exertional dyspnea likely multifactorial secondary to recent COVID-19 infection, COPD Jesus Vickers M.D. legs Pain Score (Numeric/FACES): 7 - Related Data Allergies Allergy/AdvReac Type Severity Reaction Status Date / Time Penicillins Allergy Severe Bronchospas Verified 12/06/20 16:57 ms levofloxacin [From Levaquin] Allergy Other Verified 12/06/20 16:57 Home Meds: Home Meds Gabapentin [Neurontin] 600 mg PO TID 12/15/19 [History] Metoprolol Tartrate 25 mg PO BID 12/15/19 [History] Pravastatin [Pravachol] 20 mg PO BEDTIME 12/15/19 [History] lisinopriL [Lisinopril] 5 mg PO DAILY 12/15/19 [History] Budesonide/Formoterol [Symbicort 160-4.5 MCG] 2 inh IH BID 09/05/20 [History] Omeprazole 20 mg PO DAILY 09/05/20 [History] Acetaminophen [Tylenol] 650 mg PO Q4H PRN tablet 09/07/20 [Rx] Albuterol/Ipratropium [Combivent Respimat] 0 gm INH Q4H inhaler 09/07/20 [Rx] Azithromycin [Zithromax] 500 mg PO Q24H #4 tablet 09/07/20 [Rx] Cefdinir 300 mg PO BID #8 capsule 09/07/20 [Rx] Acetaminophen [Tylenol] 650 mg PO Q4H PRN tablet 09/19/20 [Rx] Albuterol/Ipratropium [Combivent Respimat] 1 hr INH QID 30 Days #1 inhaler 09/09 09/29 [Rx] Albuterol/Ipratropium [DuoNeb 3.0-0.5 MG/3 ML] 3 ml NEB Q4HRRT PRN 30 Days #1 neb 09/19/20 [Rx] Budesonide/Formoterol [Symbicort 160-4.5 MCG] 6 gm INH BID 1 Days #1 inhaler 09/19/20 [Rx] Enoxaparin [Lovenox] 40 mg SUBCUT Q24H 30 Days #30 syringe 09/19/20 [Rx] Ondansetron [Zofran ODT] 4 mg PO Q4H PRN 5 Days #20 tab.dis 09/19/20 [Rx] Pantoprazole [ProTONIX] 40 mg PO BIDAC 30 Days #60 tab.cr 09/19/20 [Rx] dexAMETHasone [Dexamethasone] 6 mg PO DAILY 2 Days #2 tablet 09/19/20 [Rx] guaiFENesin [Robitussin] 100 mg PO Q6H PRN 30 Days #1 cup 09/19/20 [Rx] Albuterol Sulfate [Albuterol Sulfate HFA] 8.5 gm INH BID #1 inhaler 12/06/20 [Rx] Aspirin [Low Dose Aspirin EC] 81 mg PO DAILY #30 tablet. 12/06/20 [Rx] Famotidine [Pepcid] 40 mg PO BEDTIME #30 tablet 12/06/20 [Rx] Furosemide [Lasix] 40 mg PO TID #90 tablet 12/06/20 [Rx] Metoprolol Tartrate 25 mg PO BID #60 tablet 12/06/20 [Rx] Omeprazole 20 mg PO DAILY #30 tablet. 12/06/20 [Rx] atorvaSTATin [Lipitor] 80 mg PO BEDTIME #30 tab 12/06/20 [Rx] lisinopriL [Lisinopril] 5 mg PO DAILY #30 tablet 12/06/20 [Rx] Past Medical History HEENT History: Reports: Impaired Vision Other HEENT History: has top and bottom dentures, wears reading glasses as needed Cardiovascular History: Reports: Bypass, CAD, High Cholesterol, Hypertension, IA, Stents Respiratory History: Reports: COPD, SOB Other Respiratory History: smokes 2 packs of cigarettes per day for over 6 yrs. quit a year and a half ago Gastrointestinal History: Reports: Hepatitis Other Gastrointestinal History: states he is on his last treatment for hepatitis C,h/o elevated LFT'S Genitourinary History: Reports: Prostate Disorder Musculoskeletal History: Reports: Back Pain, Chronic Other Musculoskeletal History: WILLA, chronic leg pain Neurological History: Reports: None Psychiatric History: Reports: Addiction, Other (See Below) Other Psychiatric History: hx ETOH abuse Endocrine/Metabolic History: Reports: Obesity/BMI 30+, Other (See Below) Other Endocrine/Metabolic History: pt. states that he was told in [place] that he has Diabetes, but pt. denies having diabetes. Hematologic History: Reports: None Immunologic History: Reports: None Oncologic (Cancer) History: Reports: None Dermatologic History: Reports: None - Infectious Disease History Infectious Disease History: Reports: Chicken Pox, Measles, Mumps, Novel Coronavirus - Past Surgical History Head Surgeries/Procedures: Reports: None HEENT Surgical History: Reports: Naso-Sinus Surgery Cardiovascular Surgical History: Reports: Coronary Artery Bypass, Vascular Surgery Other Cardiovascular Surgeries/Procedures: multiple vascular surgeries to left lower extremities, including bilat. aorto-femoral bypass, fem-fem cross over bypass and left fem-pop. bypass. Respiratory Surgical History: Reports: None GI Surgical History: Reports: Appendectomy Male Surgical History: Reports: TURP-Transurethral Resection of Prostate Other Male Surgeries/Procedures: Prostate Endocrine Surgical History: Reports: None Neurological Surgical History: Reports: Laminectomy Musculoskeletal Surgical History: Reports: Other (See Below) Other Musculoskeletal Surgeries/Procedures:: left foot - 3 hammer toe repair Oncologic Surgical History: Reports: None Dermatological Surgical History: Reports: None Social & Family History - Family History Family Medical History: No Pertinent Family History - Tobacco Use Used Tobacco, but Quit: Yes Month/Year Tobacco Last Used: 2019 - Caffeine Use Caffeine Use: Reports: None - Recreational Drug Use Recreational Drug Use: No - Living Situation & Occupation Living situation: Reports: with Significant Other ED ROS GENERAL - Review of Systems Review Of Systems: See Below ED EXAM, GENERAL - Physical Exam Exam: See Below Departure - Departure Disposition: Home, Self-Care 01 Clinical Impression: COPD (chronic obstructive pulmonary disease) case management patient, COVID-19, Dyspnea - Discharge Information Prescriptions: Albuterol Sulfate [Albuterol Sulfate HFA] 8.5 gm INH BID #1 inhaler Furosemide [Lasix] 40 mg PO TID #90 tablet atorvaSTATin [Lipitor] 80 mg PO BEDTIME #30 tab lisinopriL [Lisinopril] 5 mg PO DAILY #30 tablet Aspirin [Low Dose Aspirin EC] 81 mg PO DAILY #30 tablet. Metoprolol Tartrate 25 mg PO BID #60 tablet Omeprazole 20 mg PO DAILY #30 tablet. Famotidine [Pepcid] 40 mg PO BEDTIME #30 tablet Instructions: COVID-19 Frequently Asked Questions, Chronic Obstructive Pulmonary Disease, Shortness of Breath, Adult Referrals: Stella Wilhelm NP [Primary Care Provider] - Forms: ED Department Discharge Additional Instructions: You have been seen and evaluated in the ER today secondary to concerns about your respiratory status. Your oxygenation here in the ER have remained stable on your chronic 2 L of O2 nasal cannula. Your blood test have all been within normal limits. Your chest x-ray today shows significant improvement from the prior x-ray when you were diagnosed with coronavirus. Please make an appointment to see your family doctor in the next 1 to 2 days for reevaluation. Please return to the ER if you start experiencing increasing shortness of breath at home. You can increase your oxygen supply to 3 L in the meantime if you do get short episodes of shortness of breath with exertion. The following information is given to patients seen in the emergency department who are being discharged to home. This information is to outline your options for follow-up care. We provide all patients seen in our emergency department w ith a follow-up referral. The need for follow-up, as well as the timing and circumstances, are variable depending upon the specifics of your emergency department visit. If you don't have a primary care physician on staff, we will provide you with a referral. We always advise you to contact your personal physician following an emergency department visit to inform them of the circumstance of the visit and for follow-up with them and/or the need for any referrals to a consulting specialist. The emergency department will also refer you to a specialist when appropriate. This referral assures that you have the opportunity for follow-up care with a specialist. All of these measure are taken in an effort to provide you with optimal care, which includes your follow-up. Under all circumstances we always encourage you to contact your private physician who remains a resource for coordinating your care. When calling for follow-up care, please make the office aware that this follow-up is from your recent emergency room visit. If for any reason you are refused follow-up, please contact the [facility] Emergency Department at and asked to speak to the emergency department charge nurse. [facility] [address] [place] [id number] [facility] [address] [place] [address] Sepsis Event Note (ED) - Evaluation Sepsis Screening Result: No Definite Risk <Guerrero Jin - Last Filed: 12/06/20 20:18> ED HPI GENERAL MEDICAL PROBLEM - History of Present Illness INITIAL COMMENTS - FREE TEXT/NARRATIVE: 8:14 PM: Signout received by me. In summary this is a 75-year-old gentleman who presented to the ER today secondary to appear short of breath when he went to the respiratory clinic. Patient does have a history significant for COPD, CAD, recent Covid infection and is currently on chronic home O2. Upon arrival to the ED, the patient saturations have been adequate on 2 L of nasal cannula which is his baseline. upon my reevaluation, the patient reports he has no chest pain and no shortness of breath at this time and feels comfortable. Patient is requesting to be discharged home and will resume further care. Will resume plain as outlined during signout. Patient's labs are all within normal limits. Course - Vital Signs Last Recorded V/S: Last Vital Signs Temp 96.6 F L 12/06/20 16:50 Pulse 83 12/06/20 17:51 Resp 20 12/06/20 16:50 BP 145/82 H 12/06/20 17:51 Pulse Ox 98 12/06/20 17:51 - Orders/Labs/Meds Orders: Active Orders 24 hr Category Date Time Status Cardiac Monitoring [RC] . DIRECTED Care 12/06/20 17:49 Active EKG Documentation Completion [RC] STAT Care 12/06/20 17:50 Active Pulse Oximetry [RC] ASDIRECTED Care 12/06/20 17:49 Active Labs: Laboratory Tests 12/06/20 12/06/20 12/06/20 Range/Units 18:52 18:52 18:52 WBC 12.27 H (4.0-11.0) K/uL RBC 5.52 (4.50-5.90) M/uL Hgb 17.2 H (13.0-17.0) g/dL Hct 53.1 H (38.0-50.0) % MCV 96.2 (80.0-98.0) fL MCH 31.2 (27.0-32.0) pg MCHC 32.4 (31.0-37.0) g/dL RDW Std Deviation 56.4 (28.0-62.0) fl RDW Coeff of [place] 16 H (11.0-15.0) % Plt Count 242 (150-400) K/uL MPV 10.50 (7.40-12.00) fL Add Manual Diff YES Neutrophils % (Manual) 64 (48.0-80.0) % Band Neutrophils % 4 % Lymphocytes % (Manual) 21 (16.0-40.0) % Monocytes % (Manual) 8 (0.0-15.0) % Metamyelocytes % 2 % Myelocytes % 1 % Nucleated RBC % 0.0 /100WBC Absolute Seg Neuts 7.9 H (1.4-5.7) Band Neutrophils # 0.5 Lymphocytes # (Manual) 2.6 H (0.6-2.4) Monocytes # (Manual) 1.0 H (0.0-0.8) Absolute Metamyelocyte 0.2 Absolute Myelocytes 0.1 Nucleated RBCs # 0 K/uL Sodium 139 (136-148) mmol/L Potassium 4.3 (3.5-5.1) mmol/L Chloride 101 (98-107) mmol/L Carbon Dioxide 26.8 (21.0-32.0) mmol/L BUN 12 (7.0-18.0) mg/dL Creatinine 0.9 (0.8-1.3) mg/dL Est Cr Clr Drug Dosing 78.91 mL/min Estimated GFR (MDRD) > 60.0 ml/min Glucose 105 (74-106) mg/dL Calcium 10.5 H (8.5-10.1) mg/dL Magnesium 2.1 (1.8-2.4) mg/dL Troponin I < 0.050 (0.000-0.056) ng/mL B-Natriuretic Peptide 40 (<100) PG/ML Departure - Departure Time of Disposition: 20:16 Condition: Good Sepsis Event Note (ED) - Focused Exam Vital Signs: Vital Signs Temp Pulse Resp BP Pulse Ox 12/06/20 17:51 83 145/82 H 98 12/06/20 16:50 96.6 F L 84 20 134/80 91 L
[2020-12-06 23:41] VITALS: BP 118/70; PULSE 84
== END 2020-12-06 20:35 | disposition home or self-care (01) ==
LOC: MW.ED 16:33
DX: U07.1 COVID-19 (principal); J44.9 Chronic obstructive pulmonary disease, unspecified; M79.604 Pain in right leg; M79.605 Pain in left leg; I25.10 Atherosclerotic heart disease of native coronary artery without angina pectoris; E78.00 Pure hypercholesterolemia, unspecified; I10 Essential (primary) hypertension; I25.2 Old myocardial infarction; E66.9 Obesity, unspecified; Z68.31 Body mass index [BMI] 31.0-31.9, adult; Z87.891 Personal history of nicotine dependence; Z95.1 Presence of aortocoronary bypass graft; Z88.0 Allergy status to penicillin; Z88.1 Allergy status to other antibiotic agents; Z79.82 Long term (current) use of aspirin; Z79.899 Other long term (current) drug therapy
CPT/HCPCS: 36415; 71045; 71045-26; 80048; 83735; 83880; 84484; 85025; 93005; 93010; 99283; 99285-25

== ENCOUNTER 2021-07-27 16:11 | Emergency (ER) | payer MEDICAID, MEDICARE | END 2021-07-27 19:05 | disposition left against medical advice (07) | LOC: MW.ED 16:11 | DX: Z53.21 Procedure and treatment not carried out due to patient leaving prior to being seen by health care provider (principal) ==

== ENCOUNTER 2021-09-04 15:27 | Inpatient (IN) | payer MEDICAID, MEDICARE ==
--- NOTE | 2021-09-04 16:11 | EDM.PDOC ---
ED HPI GENERAL MEDICAL PROBLEM - General Chief Complaint: Respiratory Problem Stated Complaint: CHEST PAIN SOB COUGHING Time Seen by Provider: 09/04/21 15:32 Source of Information: Reports: Patient History Limitations: Reports: No Limitations - History of Present Illness INITIAL COMMENTS - FREE TEXT/NARRATIVE: Patient is a 76-year-old male presents today for shortness of breath. States last night because he developed a productive cough and feels short of breath whenever he walks around. Denies any fever chills or body aches. He does occasionally have some chest pain only when coughing. Patient denies any nausea vomiting or decreased p.o. intake. - Related Data Allergies Allergy/AdvReac Type Severity Reaction Status Date / Time Penicillins Allergy Severe Bronchospas Verified 09/04/21 15:47 ms levofloxacin [From Levaquin] Allergy Other Verified 09/04/21 15:47 Home Meds: Home Meds Gabapentin [Neurontin] 600 mg PO TID 12/15/19 [History] Metoprolol Tartrate 25 mg PO BID 12/15/19 [History] Pravastatin [Pravachol] 20 mg PO BEDTIME 12/15/19 [History] lisinopriL [Lisinopril] 5 mg PO DAILY 12/15/19 [History] Budesonide/Formoterol [Symbicort 160-4.5 MCG] 2 inh IH BID 09/05/20 [History] Omeprazole 20 mg PO DAILY 09/05/20 [History] Acetaminophen [Tylenol] 650 mg PO Q4H PRN tablet 09/07/20 [Rx] Albuterol/Ipratropium [Combivent Respimat] 0 gm INH Q4H inhaler 09/07/20 [Rx] Azithromycin [Zithromax] 500 mg PO Q24H #4 tablet 09/07/20 [Rx] Cefdinir 300 mg PO BID #8 capsule 09/07/20 [Rx] Acetaminophen [Tylenol] 650 mg PO Q4H PRN tablet 09/19/20 [Rx] Albuterol/Ipratropium [Combivent Respimat] 1 hr INH QID 30 Days #1 inhaler 09/19/20 [Rx] Albuterol/Ipratropium [DuoNeb 3.0-0.5 MG/3 ML] 3 ml NEB Q4HRRT PRN 30 Days #1 neb 09/19/20 [Rx] Budesonide/Formoterol [Symbicort 160-4.5 MCG] 6 gm INH BID 1 Days #1 inhaler 09/19/20 [Rx] Enoxaparin [Lovenox] 40 mg SUBCUT Q24H 30 Days #30 syringe 09/19/20 [Rx] Ondansetron [Zofran ODT] 4 mg PO Q4H PRN 5 Days #20 tab.dis 09/19/20 [Rx] Pantoprazole [ProTONIX] 40 mg PO BIDAC 30 Days #60 tab.cr 09/19/20 [Rx] dexAMETHasone [Dexamethasone] 6 mg PO DAILY 2 Days #2 tablet 09/19/20 [Rx] guaiFENesin [Robitussin] 100 mg PO Q6H PRN 30 Days #1 cup 09/19/20 [Rx] Albuterol Sulfate [Albuterol Sulfate HFA] 8.5 gm INH BID #1 inhaler 12/06/20 [Rx] Aspirin [Low Dose Aspirin EC] 81 mg PO DAILY #30 tablet. 12/06/20 [Rx] Famotidine [Pepcid] 40 mg PO BEDTIME #30 tablet 12/06/20 [Rx] Furosemide [Lasix] 40 mg PO TID #90 tablet 12/06/20 [Rx] Metoprolol Tartrate 25 mg PO BID #60 tablet 12/06/20 [Rx] Omeprazole 20 mg PO DAILY #30 tablet. 12/06/20 [Rx] atorvaSTATin [Lipitor] 80 mg PO BEDTIME #30 tab 12/06/20 [Rx] lisinopriL [Lisinopril] 5 mg PO DAILY #30 tablet 12/06/20 [Rx] Past Medical History HEENT History: Reports: Impaired Vision Other HEENT History: has top and bottom dentures, wears reading glasses as needed Cardiovascular History: Reports: Bypass, CAD, High Cholesterol, Hypertension, ND, Stents Respiratory History: Reports: COPD, SOB Other Respiratory History: smokes 2 packs of cigarettes per day for over 6 yrs. quit a year and a half ago Gastrointestinal History: Reports: Hepatitis Other Gastrointestinal History: states he is on his last treatment for hepatitis C,h/o elevated LFT'S Genitourinary History: Reports: Prostate Disorder Musculoskeletal History: Reports: Back Pain, Chronic Other Musculoskeletal History: WILLA, chronic leg pain Neurological History: Reports: None Psychiatric History: Reports: Addiction, Other (See Below) Other Psychiatric History: hx ETOH abuse Endocrine/Metabolic History: Reports: Obesity/BMI 30+, Other (See Below) Other Endocrine/Metabolic History: pt. states that he was told in [place] that he has Diabetes, but pt. denies having diabetes. Hematologic History: Reports: None Immunologic History: Reports: None Oncologic (Cancer) History: Reports: None Dermatologic History: Reports: None - Infectious Disease History Infectious Disease History: Reports: Chicken Pox, Measles, Mumps, Novel Coronavirus - Past Surgical History Head Surgeries/Procedures: Reports: None HEENT Surgical History: Reports: Naso-Sinus Surgery Cardiovascular Surgical History: Reports: Coronary Artery Bypass, Vascular Surgery Other Cardiovascular Surgeries/Procedures: multiple vascular surgeries to left lower extremities, including bilat. aorto-femoral bypass, fem-fem cross over bypass and left fem-pop. bypass. Respiratory Surgical History: Reports: None GI Surgical History: Reports: Appendectomy Male Surgical History: Reports: TURP-Transurethral Resection of Prostate Other Male Surgeries/Procedures: Prostate Endocrine Surgical History: Reports: None Neurological Surgical History: Reports: Laminectomy Musculoskeletal Surgical History: Reports: Other (See Below) Other Musculoskeletal Surgeries/Procedures:: left foot - 3 hammer toe repair Oncologic Surgical History: Reports: None Dermatological Surgical History: Reports: None Social & Family History - Family History Family Medical History: No Pertinent Family History - Caffeine Use Caffeine Use: Reports: None - Living Situation & Occupation Living situation: Reports: with Significant Other ED ROS GENERAL - Review of Systems Review Of Systems: See Below Constitutional: Reports: No Symptoms HEENT: Reports: No Symptoms Respiratory: Reports: Shortness of Breath, Cough Cardiovascular: Reports: No Symptoms Endocrine: Reports: No Symptoms GI/Abdominal: Reports: No Symptoms : Reports: No Symptoms Musculoskeletal: Reports: No Symptoms Skin: Reports: No Symptoms Neurological: Reports: No Symptoms Psychiatric: Reports: No Symptoms Hematologic/Lymphatic: Reports: No Symptoms Immunologic: Reports: No Symptoms ED EXAM, GENERAL - Physical Exam Exam: See Below Exam Limited By: No Limitations General Appearance: Alert, WD/WN, No Apparent Distress Respiratory/Chest: No Respiratory Distress, Lungs Clear, Rhonchi Cardiovascular: Normal Peripheral Pulses, Regular Rate, Rhythm GI/Abdominal: Normal Bowel Sounds, Soft, Non-Tender Extremities: Normal Inspection, Normal Range of Motion, Non-Tender Neurological: Alert, Oriented, Normal Cognition, Normal Gait #1 Interpretation EKG Date: 09/04/21 Time: 15:45 Rhythm: NSR Rate (Beats/Min): 93 ST-T: Normal Course - Vital Signs Last Recorded V/S: Last Vital Signs Temp 98.1 F 09/04/21 15:48 Pulse 82 09/04/21 17:41 Resp 20 09/04/21 17:41 BP 113/70 09/04/21 17:41 Pulse Ox 95 09/04/21 17:41 - Orders/Labs/Meds Orders: Active Orders 24 hr Category Date Time Status RT Aerosol Therapy [RC] ASDIRECTED Care 09/04/21 17:57 Active CULTURE BLOOD [BC] Stat Lab 09/04/21 18:04 Results CULTURE BLOOD [BC] Stat Lab 09/04/21 18:12 Received Azithromycin [Zithromax] 500 mg Med 09/04/21 18:30 Active Sodium Chloride 0.9% [Normal Saline AdvBag] 250 ml IV ONETIME Blood Culture x2 Reflex Set [OM.PC] Stat Oth 09/04/21 17:20 Ordered Medication Orders Azithromycin 500 mg/ Sodium (Chloride) 250 mls @ 250 mls/hr IV ONETIME BERYL Labs: Laboratory Tests 09/04/21 09/04/21 09/04/21 Range/Units 16:00 16:00 16:10 WBC 16.87 H (4.0-11.0) K/uL RBC 4.91 (4.50-5.90) M/uL Hgb 15.1 (13.0-17.0) g/dL Hct 45.7 (38.0-50.0) % MCV 93.1 (80.0-98.0) fL MCH 30.8 (27.0-32.0) pg MCHC 33.0 (31.0-37.0) g/dL RDW Std Deviation 47.5 (28.0-62.0) fl RDW Coeff of [place] 14 (11.0-15.0) % Plt Count 281 (150-400) K/uL MPV 9.80 (7.40-12.00) fL Neut % (Auto) 88.6 H (48.0-80.0) % Lymph % (Auto) 4.3 L (16.0-40.0) % [place] % (Auto) 6.2 (0.0-15.0) % Eos % (Auto) 0.7 (0.0-7.0) % Baso % (Auto) 0.2 (0.0-1.5) % Neut # (Auto) 15.0 H (1.4-5.7) K/uL Lymph # (Auto) 0.7 (0.6-2.4) K/uL [place] # (Auto) 1.0 H (0.0-0.8) K/uL Eos # (Auto) 0.1 (0.0-0.7) K/uL Baso # (Auto) 0.0 (0.0-0.1) K/uL Nucleated RBC % 0.0 /100WBC Nucleated RBCs # 0 K/uL Sodium 136 (136-148) mmol/L Potassium 4.0 (3.5-5.1) mmol/L Chloride 98 (98-107) mmol/L Carbon Dioxide 29.1 (21.0-32.0) mmol/L BUN 13 (7.0-18.0) mg/dL Creatinine 1.1 (0.8-1.3) mg/dL Est Cr Clr Drug Dosing 63.56 mL/min Estimated GFR (MDRD) > 60.0 ml/min Glucose 124 H (74-106) mg/dL Calcium 8.9 (8.5-10.1) mg/dL Phosphorus 3.0 (2.6-4.7) mg/dL Magnesium 1.8 (1.8-2.4) mg/dL Total Bilirubin 0.5 (0.2-1.0) mg/dL AST 15 (15-37) IU/L ALT 18 (14-63) IU/L Alkaline Phosphatase 112 (46-116) U/L Creatine Kinase 85 (26-308) U/L Troponin I < 0.050 (0.000-0.056) ng/mL Total Protein 7.7 (6.4-8.2) g/dL Albumin 3.4 (3.4-5.0) g/dL Globulin 4.3 H (2.6-4.0) g/dL Albumin/Globulin Ratio 0.8 L (0.9-1.6) SARS-CoV-2 RNA (ETHAN) NEGATIVE (NEGATIVE) Meds: Medications Generic Name Dose Route Start Last Admin Trade Name Freq PRN Reason Stop Dose Admin Azithromycin 500 mg/ Sodium 250 mls @ 250 mls/hr 09/04/21 18:30 Chloride IV ONETIME BERLY Discontinued Medications Generic Name Dose Route Start Last Admin Trade Name Freq PRN Reason Stop Dose Admin Albuterol 2.5 mg 09/04/21 17:57 09/04/21 18:20 Albuterol 0.083% 2.5 Mg/3 Ml Neb Soln NEB 09/04/21 17:58 2.5 mg ONETIME ONE Administration Dexamethasone 10 mg 09/04/21 17:57 09/04/21 18:20 Dexamethasone 10 Mg/Ml Sdv IVPUSH 09/04/21 17:58 10 mg ONETIME ONE Administration Levofloxacin/Dextrose 750 mg/ 150 mls @ 100 mls/hr 09/04/21 17:21 09/04/21 18:27 Premix IV 09/04/21 18:50 Not Given ONETIME ONE - Re-Assessments/Exams Free Text/Narrative Re-Assessment/Exam: 09/04/21 18:46 Patient does have some drop in his O2 saturation. Patient will be admitted to the hospital and started on IV antibiotics. Unclear patient's allergy status may be allergic to levofloxacin and penicillin so we will give gentamicin. 09/04/21 18:46 She has some wheezing patient also started on steroids and nebulizers as well Departure - Departure Time of Disposition: 18:46 Disposition: Admitted As Inpatient 65 Condition: Good Clinical Impression: Pneumonia Qualifiers: Pneumonia type: due to unspecified organism Laterality: left Lung location: unspecified part of lung Qualified Code(s): J18.9 - Pneumonia, unspecified organism - Discharge Information *PRESCRIPTION DRUG MONITORING PROGRAM REVIEWED*: Not Applicable *COPY OF PRESCRIPTION DRUG MONITORING REPORT IN PATIENT JACY: Not Applicable Forms: ED Department Discharge Critical Care Note - Critical Care Note Total Time (mins): 45 Comments: Critical Care Procedure Note Authorized and Performed by: Dr. Hutchinson Total critical care time: Approximately Due to a high probability of clinically significant, life threatening deterioration, the patient required my highest level of preparedness to intervene emergently and I personally spent this critical care time directly and personally managing the patient. This critical care time included obtaining a history; examining the patient; pulse oximetry; ordering and review of studies; arranging urgent treatment with development of a management plan; evaluation of patient's response to treatment; frequent reassessment; and, discussions with other providers. This critical care time was performed to assess and manage the high probability of imminent, life-threatening deterioration that could result in multi-organ failure. It was exclusive of separately billable procedures and treating other patients and teaching time. Sepsis Event Note (ED) - Evaluation Sepsis Screening Result: No Definite Risk - Focused Exam Vital Signs: Vital Signs Temp Pulse Resp BP Pulse Ox 09/04/21 17:41 82 20 113/70 95 09/04/21 15:48 98.1 F 93 19 137/81 96 - My Orders Last 24 Hours: My Active Orders 09/04/21 17:20 Blood Culture x2 Reflex Set [OM.PC] Stat 09/04/21 17:57 RT Aerosol Therapy [RC] ASDIRECTED 09/04/21 18:04 CULTURE BLOOD [BC] Stat 09/04/21 18:12 CULTURE BLOOD [BC] Stat 09/04/21 18:30 Azithromycin [Zithromax] 500 mg Sodium Chloride 0.9% [Normal Saline AdvBag] 250 ml IV ONETIME - Assessment/Plan Last 24 Hours: My Active Orders 09/04/21 17:20 Blood Culture x2 Reflex Set [OM.PC] Stat 09/04/21 17:57 RT Aerosol Therapy [RC] ASDIRECTED 09/04/21 18:04 CULTURE BLOOD [BC] Stat 09/04/21 18:12 CULTURE BLOOD [BC] Stat 09/04/21 18:30 Azithromycin [Zithromax] 500 mg Sodium Chloride 0.9% [Normal Saline AdvBag] 250 ml IV ONETIME Plan: Patient is a 76-year-old male who presents today for cough and shortness of breath. Patient exam looks well satting 90% room air. Does have some bilateral rhonchi we will do labs x-ray and reassess.
[2021-09-04 16:29] LABS: BLOOD UREA NITROGEN,BUN 13 mg/dL (7.0-18.0); CARBON DIOXIDE,CO2 29.1 mmol/L (21.0-32.0); CHLORIDE,CL 98 mmol/L (98-107); GLUCOSE RANDOM 124 mg/dL (74-106); SODIUM,NA 136 mmol/L (136-148)
--- NOTE | 2021-09-04 17:13 | CR ---
INDICATION: Shortness of breath TECHNIQUE: Chest radiograph 1 view COMPARISON: 03/15/2021 FINDINGS: The sensitivity and specificity of the exam are moderately limited by the patient`s body habitus. Mediastinum: Previous median sternotomy and coronary artery bypass grafting (CABG) noted. The heart silhouette is normal in size and morphology. Lung: New mild nodular ill-defined infiltrates present in the midlung zones bilaterally with ground-glass opacity seen in the left lower lung zone. No sign of pleural effusion seen. No pneumothorax is identified. Bone and Soft tissue: Unremarkable for age. IMPRESSION: 1. New mild nodular ill-defined infiltrates present in the midlung zones bilaterally with ground-glass opacity seen in the left lower lung zone. Findings may be due to pneumonia and follow-up imaging is recommended to document resolution. Dictated by Louis Cota MD @ 09/04/2021 5:11:19 PM Dictated by: Louis Cota MD @ 09/04/2021 17:11:24 (Electronically Signed)
[2021-09-04] MEDS: Levofloxacin/Dextrose 5%-Water 750 MG in Premix Bag 1 BAG IV ONE ×2 (17:40→18:27)
[2021-09-04] MEDS ORDERED: Albuterol 0.083% 2.5 MG/3 ML Neb Soln NEB ONE (17:57)
[2021-09-04] MEDS ORDERED: Dexamethasone 10 MG/ML SDV IVPUSH ONE (17:57)
[2021-09-04] MEDS ORDERED: Azithromycin 500 MG in Sodium Chloride 0.9% 250 ML IV SCH (18:30)
--- NOTE | 2021-09-04 19:37 | PCM.HP.2 ---
H&P History of Present Illness - General Date of Service: 09/04/21 Admit Problem/Dx: Admission Diagnosis/Problem Admission Diagnosis/Problem Pneumonia/copd Source of Information: Patient, Provider History Limitations: Reports: No Limitations, Respiratory Distress - History of Present Illness Initial Comments - Free Text/Narative: 09/04/21 76 year old male with copd and 24 hour hx of coughing,chest congestion without fever,chills rigors or vomiting. feels sob at rest and worse with activity. recently returned form [place] and denies chest pains and denies orthopnea,mild pnd hx of chronic [place] and copd on puffers alb and atrovent compliant with. has had flu vaccine and covid vac. also pneumonia shop. 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 no weight loss sweats ,afib or angina,hemoptysis or prev. p.e. arrythmia or chf . can walk 20 to 25 feet. pmh cad s/p cabg. aortic bypass( fem fem?) 2018. hx of bph ,hyperlipidemia but no diabetes liver or renal failure. hx of copd. denies claudication or tia/cva. he has never worn o.2 p.e course wheezy ronchorous breathe sounds. trace edema . carotids plus one no bruits. chest xray chronic heart falure and infiltrates / mild increase in vasc. mid lung nettles. no pleural effusions. increased lung markings. perhilar marking increased. labs essentially normal but wbc increased. covid screen neg. assess:plan 1//onset acute of bronchitis symptoms in male with long standing copd (qyuit smoking 3 years ago.) on puffers yet more symptomatic. previous lung marking abnormal and no clear if findings new or old. recommend ct scan of chest a nd empiric treatment of copd and pneumonia. recommend i.v steroids . increased interstitial markings. ? chronic fibrosis form welding or other cause , check ct scan if able . no def. pleural plaque to my review . 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 not on o2 and normally controlled with inhalers but progressing in past year. unknown lungs disease but abnormal none the less. cad appears stable recheck trop and d dimer but no chest pain . covid test neg early in course of illness repeat in few days if not responding to antibiotics. vaccinated. aortic fem bypass stable . possible hx of pcn allergy in remote past but swears he has had rocephin and pcn in past 3 years without reaction . also listed is allergy to levaquin which he doesn't remember. rocephin and azythromycin.boh Onset of Symptoms: Reports: Sudden (last night ) Duration of Symptoms: Reports: Hour(s): (24 hours), Getting Worse Location: Reports: Chest Worsens with: Reports: Breathing, Eating, Movement Associated Symptoms: Reports: No Other Symptoms (patient had pcn reaction when 27 and has had it several times since .no reaction over past 3 years he states) - Related Data Allergies/Adverse Reactions: Allergies Allergy/AdvReac Type Severity Reaction Status Date / Time Penicillins Allergy Severe Bronchospas Verified 09/04/21 15:47 ms levofloxacin [From Levaquin] Allergy Other Verified 09/04/21 15:47 Home Medications: Home Meds Gabapentin [Neurontin] 600 mg PO TID 12/15/19 [History] Metoprolol Tartrate 25 mg PO BID 12/15/19 [History] Pravastatin [Pravachol] 20 mg PO BEDTIME 12/15/19 [History] lisinopriL [Lisinopril] 5 mg PO DAILY 12/15/19 [History] Budesonide/Formoterol [Symbicort 160-4.5 MCG] 2 inh IH BID 09/05/20 [History] Omeprazole 20 mg PO DAILY 09/05/20 [History] Acetaminophen [Tylenol] 650 mg PO Q4H PRN tablet 09/07/20 [Rx] Albuterol/Ipratropium [Combivent Respimat] 0 gm INH Q4H inhaler 09/07/20 [Rx] Azithromycin [Zithromax] 500 mg PO Q24H #4 tablet 09/07/20 [Rx] Cefdinir 300 mg PO BID #8 capsule 09/07/20 [Rx] Acetaminophen [Tylenol] 650 mg PO Q4H PRN tablet 09/19/20 [Rx] Albuterol/Ipratropium [Combivent Respimat] 1 hr INH QID 30 Days #1 inhaler 09/19/20 [Rx] Albuterol/Ipratropium [DuoNeb 3.0-0.5 MG/3 ML] 3 ml NEB Q4HRRT PRN 30 Days #1 ne b 09/19/20 [Rx] Budesonide/Formoterol [Symbicort 160-4.5 MCG] 6 gm INH BID 1 Days #1 inhaler 09/19/20 [Rx] Enoxaparin [Lovenox] 40 mg SUBCUT Q24H 30 Days #30 syringe 09/19/20 [Rx] Ondansetron [Zofran ODT] 4 mg PO Q4H PRN 5 Days #20 tab.dis 09/19/20 [Rx] Pantoprazole [ProTONIX] 40 mg PO BIDAC 30 Days #60 tab.cr 09/19/20 [Rx] dexAMETHasone [Dexamethasone] 6 mg PO DAILY 2 Days #2 tablet 09/19/20 [Rx] guaiFENesin [Robitussin] 100 mg PO Q6H PRN 30 Days #1 cup 09/19/20 [Rx] Albuterol Sulfate [Albuterol Sulfate HFA] 8.5 gm INH BID #1 inhaler 12/06/20 [Rx] Aspirin [Low Dose Aspirin EC] 81 mg PO DAILY #30 tablet. 12/06/20 [Rx] Famotidine [Pepcid] 40 mg PO BEDTIME #30 tablet 12/06/20 [Rx] Furosemide [Lasix] 40 mg PO TID #90 tablet 12/06/20 [Rx] Metoprolol Tartrate 25 mg PO BID #60 tablet 12/06/20 [Rx] Omeprazole 20 mg PO DAILY #30 tablet. 12/06/20 [Rx] atorvaSTATin [Lipitor] 80 mg PO BEDTIME #30 tab 12/06/20 [Rx] lisinopriL [Lisinopril] 5 mg PO DAILY #30 tablet 12/06/20 [Rx] Past Medical History HEENT History: Reports: Impaired Vision Other HEENT History: has top and bottom dentures, wears reading glasses as needed Cardiovascular History: Reports: Bypass, CAD, High Cholesterol, Hypertension, RI, PVD, Stents Respiratory History: Reports: COPD, SOB Other Respiratory History: smokes 2 packs of cigarettes per day for over 6 yrs. quit a year and a half ago Gastrointestinal History: Reports: Hepatitis Other Gastrointestinal History: states he is on his last treatment for hepatitis C,h/o elevated LFT'S Genitourinary History: Reports: BPH, Prostate Disorder Musculoskeletal History: Reports: Back Pain, Chronic Other Musculoskeletal History: WILLA, chronic leg pain Neurological History: Reports: None, TIA. Denies: Seizure Psychiatric History: Reports: Addiction, Anxiety, Other (See Below) Other Psychiatric History: hx ETOH abuse Endocrine/Metabolic History: Reports: Obesity/BMI 30+, Other (See Below) Other Endocrine/Metabolic History: pt. states that he was told in [place] that he has Diabetes, but pt. denies having diabetes. Oncologic (Cancer) History: Reports: None Dermatologic History: Reports: None - Infectious Disease History Infectious Disease History: Reports: Chicken Pox, Measles, Mumps, Novel Coronavirus - Past Surgical History Head Surgeries/Procedures: Reports: None HEENT Surgical History: Reports: Naso-Sinus Surgery Cardiovascular Surgical History: Reports: Coronary Artery Bypass, Vascular S urgery Other Cardiovascular Surgeries/Procedures: multiple vascular surgeries to left lower extremities, including bilat. aorto-femoral bypass, fem-fem cross over bypass and left fem-pop. bypass. Respiratory Surgical History: Reports: None GI Surgical History: Reports: Appendectomy Male Surgical History: Reports: TURP-Transurethral Resection of Prostate Other Male Surgeries/Procedures: Prostate Endocrine Surgical History: Reports: None Neurological Surgical History: Reports: Laminectomy Musculoskeletal Surgical History: Reports: Other (See Below) Other Musculoskeletal Surgeries/Procedures:: left foot - 3 hammer toe repair Oncologic Surgical History: Reports: None Dermatological Surgical History: Reports: None Social & Family History - Family History Family Medical History: No Pertinent Family History - Caffeine Use Caffeine Use: Reports: None - Living Situation & Occupation Living situation: Reports: with Significant Other H&P Review of Systems - Review of Systems: Review Of Systems: See Below General: Reports: No Symptoms HEENT: Reports: No Symptoms Pulmonary: Reports: Shortness of Breath, Wheezing, Cough Cardiovascular: Reports: No Symptoms Gastrointestinal: Reports: No Symptoms Genitourinary: Reports: No Symptoms Musculoskeletal: Reports: No Symptoms Exam - Exam Exam: See Below - Vital Signs Vital Signs: Last Vital Signs Temp 36.7 C 09/04/21 15:48 Pulse 82 09/04/21 17:41 Resp 20 09/04/21 17:41 BP 113/70 09/04/21 17:41 Pulse Ox 95 09/04/21 17:41 Weight: 108.862 kg - Exam General: Alert, Oriented, 4 HEENT: PERRLA, Hearing Intact, Mucosa Moist & [place], Nares Patent, Normal Nasal Septum, Posterior Pharynx Clear, Conjunctiva Clear, EOMI, EACs Clear, TMs Clear Neck: Supple, Trachea Midline, 2 Lungs: Clear to Auscultation, Normal Respiratory Effort, Decreased Breath Sounds, Wheezing Cardiovascular: Regular Rate, Regular Rhythm GI/Abdominal Exam: Normal Bowel Sounds, Soft, Non-Tender, No Organomegaly, No Distention, No Abnormal Bruit, No Mass, Pelvis Stable (Male) Exam: No Hernia, Normal Inspection, Normal Prostate, Circumcised Rectal (Males) Exam: Normal Exam, Normal Rectal Tone, Prostate Normal Back Exam: Normal Inspection, Full Range of Motion, NT Extremities: Normal Inspection, Normal Range of Motion, Non-Tender, No Pedal Edema, Normal Capillary Refill Skin: Warm, Dry, Intact Neurological: Cranial Nerves Intact, Reflexes Equal Bilateral Neuro Extensive - Mental Status: Alert, Oriented x3, Normal Mood/Affect, Normal Cognition Neuro Extensive - Motor, Sensory, Reflexes: CN II-XII Intact, Normal Gait, Normal Reflexes Psychiatric: Alert, Normal Affect, Normal Mood - Patient Data Lab Results Last 24 hrs: Laboratory Results - last 24 hr 09/04/21 09/04/21 09/04/21 Range/Units 16:00 16:00 16:10 WBC 16.87 H (4.0-11.0) K/uL RBC 4.91 (4.50-5.90) M/uL Hgb 15.1 (13.0-17.0) g/dL Hct 45.7 (38.0-50.0) % MCV 93.1 (80.0-98.0) fL MCH 30.8 (27.0-32.0) pg MCHC 33.0 (31.0-37.0) g/dL RDW Std Deviation 47.5 (28.0-62.0) fl RDW Coeff of [place] 14 (11.0-15.0) % Plt Count 281 (150-400) K/uL MPV 9.80 (7.40-12.00) fL Neut % (Auto) 88.6 H (48.0-80.0) % Lymph % (Auto) 4.3 L (16.0-40.0) % [place] % (Auto) 6.2 (0.0-15.0) % Eos % (Auto) 0.7 (0.0-7.0) % Baso % (Auto) 0.2 (0.0-1.5) % Neut # (Auto) 15.0 H (1.4-5.7) K/uL Lymph # (Auto) 0.7 (0.6-2.4) K/uL [place] # (Auto) 1.0 H (0.0-0.8) K/uL Eos # (Auto) 0.1 (0.0-0.7) K/uL Baso # (Auto) 0.0 (0.0-0.1) K/uL Nucleated RBC % 0.0 /100WBC Nucleated RBCs # 0 K/uL Sodium 136 (136-148) mmol/L Potassium 4.0 (3.5-5.1) mmol/L Chloride 98 (98-107) mmol/L Carbon Dioxide 29.1 (21.0-32.0) mmol/L BUN 13 (7.0-18.0) mg/dL Creatinine 1.1 (0.8-1.3) mg/dL Est Cr Clr Drug Dosing 63.56 mL/min Estimated GFR (MDRD) > 60.0 ml/min Glucose 124 H (74-106) mg/dL Calcium 8.9 (8.5-10.1) mg/dL Phosphorus 3.0 (2.6-4.7) mg/dL Magnesium 1.8 (1.8-2.4) mg/dL Total Bilirubin 0.5 (0.2-1.0) mg/dL AST 15 (15-37) IU/L ALT 18 (14-63) IU/L Alkaline Phosphatase 112 (46-116) U/L Creatine Kinase 85 (26-308) U/L Troponin I < 0.050 (0.000-0.056) ng/mL Total Protein 7.7 (6.4-8.2) g/dL Albumin 3.4 (3.4-5.0) g/dL Globulin 4.3 H (2.6-4.0) g/dL Albumin/Globulin Ratio 0.8 L (0.9-1.6) SARS-CoV-2 RNA (ETHAN) NEGATIVE (NEGATIVE) Result Diagrams: 09/04/21 16:00 09/04/21 16:00 Zaheer Results Last 24 hrs: Microbiology 09/04/21 18:04 Anaerobic Blood Culture - Final Blood - Venous Sepsis Event Note - Evaluation Sepsis Screening Result: No Definite Risk - Focused Exam Vital Signs: Vital Signs Temp Pulse Resp BP Pulse Ox 09/04/21 17:41 82 20 113/70 95 09/04/21 15:48 36.7 C 93 19 137/81 96 Problem List Initiated/Reviewed/Updated: Yes Orders Last 24hrs: Active Orders 24 hr Category Date Time Status Admission Status [Patient Status] [ADT] Stat ADT 09/04/21 18:47 Active RT Aerosol Therapy [RC] ASDIRECTED Care 09/04/21 17:57 Active CULTURE BLOOD [BC] Stat Lab 09/04/21 18:04 Results CULTURE BLOOD [BC] Stat Lab 09/04/21 18:12 Received Azithromycin [Zithromax] 500 mg Med 09/04/21 18:30 Active Sodium Chloride 0.9% [Normal Saline AdvBag] 250 ml IV ONETIME Blood Culture x2 Reflex Set [OM.PC] Stat Oth 09/04/21 17:20 Ordered Medication Orders Azithromycin 500 mg/ Sodium (Chloride) 250 mls @ 250 mls/hr IV ONETIME BERYL Last Admin: 09/04/21 18:51 Dose: 250 mls/hr Documented by: MERI Assessment/Plan Comment:: 09/04/21 76 year old male with copd and 24 hour hx of coughing,chest congestion without fever,chills rigors or vomiting. feels sob at rest and worse with activity. recently returned form [place] and denies chest pains and denies orthopnea,mild pnd hx of chronic [place] and copd on puffers alb and atrovent compliant with. has had flu vaccine and covid vac. also pneumonia shop. 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 no weight loss sweats ,afib or angina,hemoptysis or prev. p.e. arrythmia or chf . can walk 20 to 25 feet. pmh cad s/p cabg. aortic bypass( fem fem?) 2018. hx of bph ,hyperlipidemia but no diabetes liver or renal failure. hx of copd. denies claudication or tia/cva. he has never worn o.2 p.e course wheezy ronchorous breathe sounds. trace edema . carotids plus one no bruits. chest xray chronic heart falure and infiltrates / mild increase in vasc. mid lung nettles. no pleural effusions. increased lung markings. perhilar marking increased. labs essentially normal but wbc increased. covid screen neg. assess:plan 1//onset acute of bronchitis symptoms in male with long standing copd (qyuit smoking 3 years ago.) on puffers yet more symptomatic. previous lung marking abnormal and no clear if findings new or old. recommend ct scan of chest a nd empiric treatment of copd and pneumonia. recommend i.v steroids . increased interstitial markings. ? chronic fibrosis form welding or other cause , check ct scan if able . no def. pleural plaque to my review . 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 not on o2 and normally controlled with inhalers but progressing in past year. unknown lungs disease but abnormal none the less. cad appears stable recheck trop and d dimer but no chest pain . covid test neg early in course of illness repeat in few days if not responding to antibiotics. vaccinated. aortic fem bypass stable . possible hx of pcn allergy in remote past but swears he has had rocephin and pcn in past 3 years without reaction . also listed is allergy to levaquin which he doesn't remember. rocephin and azythromycin.boh - Mortality Measure Prognosis:: Good
--- NOTE | 2021-09-04 19:50 | PCM.HP.2 ---
H&P History of Present Illness - General Admit Problem/Dx: Admission Diagnosis/Problem Admission Diagnosis/Problem Pneumonia/copd - Related Data Allergies/Adverse Reactions: Allergies Allergy/AdvReac Type Severity Reaction Status Date / Time Penicillins Allergy Severe Bronchospas Verified 09/04/21 15:47 ms levofloxacin [From Levaquin] Allergy Other Verified 09/04/21 15:47 Home Medications: Home Meds Gabapentin [Neurontin] 600 mg PO TID 12/15/19 [History] Metoprolol Tartrate 25 mg PO BID 12/15/19 [History] Pravastatin [Pravachol] 20 mg PO BEDTIME 12/15/19 [History] lisinopriL [Lisinopril] 5 mg PO DAILY 12/15/19 [History] Budesonide/Formoterol [Symbicort 160-4.5 MCG] 2 inh IH BID 09/05/20 [History] Omeprazole 20 mg PO DAILY 09/05/20 [History] Acetaminophen [Tylenol] 650 mg PO Q4H PRN tablet 09/07/20 [Rx] Albuterol/Ipratropium [Combivent Respimat] 0 gm INH Q4H inhaler 09/07/20 [Rx] Azithromycin [Zithromax] 500 mg PO Q24H #4 tablet 09/07/20 [Rx] Cefdinir 300 mg PO BID #8 capsule 09/07/20 [Rx] Acetaminophen [Tylenol] 650 mg PO Q4H PRN tablet 09/19/20 [Rx] Albuterol/Ipratropium [Combivent Respimat] 1 hr INH QID 30 Days #1 inhaler 09/19/20 [Rx] Albuterol/Ipratropium [DuoNeb 3.0-0.5 MG/3 ML] 3 ml NEB Q4HRRT PRN 30 Days #1 neb 09/19/20 [Rx] Budesonide/Formoterol [Symbicort 160-4.5 MCG] 6 gm INH BID 1 Days #1 inhaler 09/19/20 [Rx] Enoxaparin [Lovenox] 40 mg SUBCUT Q24H 30 Days #30 syringe 09/19/20 [Rx] Ondansetron [Zofran ODT] 4 mg PO Q4H PRN 5 Days #20 tab.dis 09/19/20 [Rx] Pantoprazole [ProTONIX] 40 mg PO BIDAC 30 Days #60 tab.cr 09/19/20 [Rx] dexAMETHasone [Dexamethasone] 6 mg PO DAILY 2 Days #2 tablet 09/19/20 [Rx] guaiFENesin [Robitussin] 100 mg PO Q6H PRN 30 Days #1 cup 09/19/20 [Rx] Albuterol Sulfate [Albuterol Sulfate HFA] 8.5 gm INH BID #1 inhaler 12/06/20 [R x] Aspirin [Low Dose Aspirin EC] 81 mg PO DAILY #30 tablet. 12/06/20 [Rx] Famotidine [Pepcid] 40 mg PO BEDTIME #30 tablet 12/06/20 [Rx] Furosemide [Lasix] 40 mg PO TID #90 tablet 12/06/20 [Rx] Metoprolol Tartrate 25 mg PO BID #60 tablet 12/06/20 [Rx] Omeprazole 20 mg PO DAILY #30 tablet. 12/06/20 [Rx] atorvaSTATin [Lipitor] 80 mg PO BEDTIME #30 tab 12/06/20 [Rx] lisinopriL [Lisinopril] 5 mg PO DAILY #30 tablet 12/06/20 [Rx] Past Medical History HEENT History: Reports: Impaired Vision Other HEENT History: has top and bottom dentures, wears reading glasses as needed Cardiovascular History: Reports: Bypass, CAD, High Cholesterol, Hypertension, ID, PVD, Stents Respiratory History: Reports: COPD, SOB Other Respiratory History: smokes 2 packs of cigarettes per day for over 6 yrs. quit a year and a half ago Gastrointestinal History: Reports: Hepatitis Other Gastrointestinal History: states he is on his last treatment for hepatitis C,h/o elevated LFT'S Genitourinary History: Reports: BPH, Prostate Disorder Musculoskeletal History: Reports: Back Pain, Chronic Other Musculoskeletal History: WILLA, chronic leg pain Neurological History: Reports: None, TIA. Denies: Seizure Psychiatric History: Reports: Addiction, Anxiety, Other (See Below) Other Psychiatric History: hx ETOH abuse Endocrine/Metabolic History: Reports: Obesity/BMI 30+, Other (See Below) Other Endocrine/Metabolic History: pt. states that he was told in [place] that he has Diabetes, but pt. denies having diabetes. Hematologic History: Reports: None Immunologic History: Reports: None Oncologic (Cancer) History: Reports: None Dermatologic History: Reports: None - Infectious Disease History Infectious Disease History: Reports: Chicken Pox, Measles, Mumps, Novel Coronavirus - Past Surgical History Head Surgeries/Procedures: Reports: None HEENT Surgical History: Reports: Naso-Sinus Surgery Cardiovascular Surgical History: Reports: Coronary Artery Bypass, Vascular Surgery Other Cardiovascular Surgeries/Procedures: multiple vascular surgeries to left lower extremities, including bilat. aorto-femoral bypass, fem-fem cross over bypass and left fem-pop. bypass. Respiratory Surgical History: Reports: None GI Surgical History: Reports: Appendectomy Male Surgical History: Reports: TURP-Transurethral Resection of Prostate Other Male Surgeries/Procedures: Prostate Endocrine Surgical History: Reports: None Neurological Surgical History: Reports: Laminectomy Musculoskeletal Surgical History: Reports: Other (See Below) Other Musculoskeletal Surgeries/Procedures:: left foot - 3 hammer toe repair Oncologic Surgical History: Reports: None Dermatological Surgical History: Reports: None Social & Family History - Family History Family Medical History: No Pertinent Family History - Caffeine Use Caffeine Use: Reports: None - Living Situation & Occupation Living situation: Reports: with Significant Other H&P Review of Systems - Review of Systems: Review Of Systems: See Below General: Reports: No Symptoms HEENT: Reports: No Symptoms Pulmonary: Reports: No Symptoms, Shortness of Breath, Wheezing, Cough. Denies: Pleuritic Chest Pain, Sputum, Hemoptysis Cardiovascular: Reports: No Symptoms, Blood Pressure Problem. Denies: Chest Pain, Orthopnea, PND, Edema, Syncope, Claudication Gastrointestinal: Reports: No Symptoms Genitourinary: Reports: No Symptoms Musculoskeletal: Reports: No Symptoms, Neck Pain Skin: Reports: No Symptoms Psychiatric: Reports: No Symptoms Neurological: Reports: No Symptoms Hematologic/Lymphatic: Reports: No Symptoms Immunologic: Reports: No Symptoms Exam - Exam Exam: See Below - Vital Signs Vital Signs: Last Vital Signs Temp 36.7 C 09/04/21 15:48 Pulse 82 09/04/21 17:41 Resp 20 09/04/21 17:41 BP 113/70 09/04/21 17:41 Pulse Ox 95 09/04/21 17:41 Weight: 108.862 kg - Exam Quality Assessment: Supplemental Oxygen General: Alert, Oriented, 4 HEENT: PERRLA, Hearing Intact, Mucosa Moist & [place], Nares Patent, Normal Nasal Septum, Posterior Pharynx Clear, Conjunctiva Clear, EOMI, EACs Clear, TMs Clear Neck: Supple, Trachea Midline, 2 Lungs: Clear to Auscultation, Normal Respiratory Effort Cardiovascular: Regular Rate, Regular Rhythm GI/Abdominal Exam: Normal Bowel Sounds, Soft, Non-Tender, No Organomegaly, No Distention, No Abnormal Bruit, No Mass, Pelvis Stable (Male) Exam: No Hernia, Normal Inspection, Normal Prostate, Circumcised Rectal (Males) Exam: Normal Exam, Normal Rectal Tone, Prostate Normal Back Exam: Normal Inspection, Full Range of Motion, NT Extremities: Normal Inspection, Normal Range of Motion, Non-Tender, No Pedal Edema, Normal Capillary Refill Skin: Warm, Dry, Intact Neurological: Cranial Nerves Intact, Reflexes Equal Bilateral Neuro Extensive - Mental Status: Alert, Oriented x3, Normal Mood/Affect, Normal Cognition Neuro Extensive - Motor, Sensory, Reflexes: CN II-XII Intact, Normal Gait, Norm al Reflexes Psychiatric: Alert, Normal Affect, Normal Mood - Patient Data Lab Results Last 24 hrs: Laboratory Results - last 24 hr 09/04/21 09/04/21 09/04/21 Range/Units 16:00 16:00 16:10 WBC 16.87 H (4.0-11.0) K/uL RBC 4.91 (4.50-5.90) M/uL Hgb 15.1 (13.0-17.0) g/dL Hct 45.7 (38.0-50.0) % MCV 93.1 (80.0-98.0) fL MCH 30.8 (27.0-32.0) pg MCHC 33.0 (31.0-37.0) g/dL RDW Std Deviation 47.5 (28.0-62.0) fl RDW Coeff of [place] 14 (11.0-15.0) % Plt Count 281 (150-400) K/uL MPV 9.80 (7.40-12.00) fL Neut % (Auto) 88.6 H (48.0-80.0) % Lymph % (Auto) 4.3 L (16.0-40.0) % [place] % (Auto) 6.2 (0.0-15.0) % Eos % (Auto) 0.7 (0.0-7.0) % Baso % (Auto) 0.2 (0.0-1.5) % Neut # (Auto) 15.0 H (1.4-5.7) K/uL Lymph # (Auto) 0.7 (0.6-2.4) K/uL [place] # (Auto) 1.0 H (0.0-0.8) K/uL Eos # (Auto) 0.1 (0.0-0.7) K/uL Baso # (Auto) 0.0 (0.0-0.1) K/uL Nucleated RBC % 0.0 /100WBC Nucleated RBCs # 0 K/uL Sodium 136 (136-148) mmol/L Potassium 4.0 (3.5-5.1) mmol/L Chloride 98 (98-107) mmol/L Carbon Dioxide 29.1 (21.0-32.0) mmol/L BUN 13 (7.0-18.0) mg/dL Creatinine 1.1 (0.8-1.3) mg/dL Est Cr Clr Drug Dosing 63.56 mL/min Estimated GFR (MDRD) > 60.0 ml/min Glucose 124 H (74-106) mg/dL Calcium 8.9 (8.5-10.1) mg/dL Phosphorus 3.0 (2.6-4.7) mg/dL Magnesium 1.8 (1.8-2.4) mg/dL Total Bilirubin 0.5 (0.2-1.0) mg/dL AST 15 (15-37) IU/L ALT 18 (14-63) IU/L Alkaline Phosphatase 112 (46-116) U/L Creatine Kinase 85 (26-308) U/L Troponin I < 0.050 (0.000-0.056) ng/mL Total Protein 7.7 (6.4-8.2) g/dL Albumin 3.4 (3.4-5.0) g/dL Globulin 4.3 H (2.6-4.0) g/dL Albumin/Globulin Ratio 0.8 L (0.9-1.6) SARS-CoV-2 RNA (ETHAN) NEGATIVE (NEGATIVE) Result Diagrams: 09/04/21 16:00 09/04/21 16:00 Zaheer Results Last 24 hrs: Microbiology 09/04/21 18:04 Anaerobic Blood Culture - Final Blood - Venous Sepsis Event Note - Evaluation Sepsis Screening Result: No Definite Risk - Focused Exam Vital Signs: Vital Signs Temp Pulse Resp BP Pulse Ox 09/04/21 17:41 82 20 113/70 95 09/04/21 15:48 36.7 C 93 19 137/81 96 - Problem List (1) Pneumonia SNOMED Code(s): 557822153 ICD Code: J18.9 - PNEUMONIA, UNSPECIFIED ORGANISM Status: Acute Priority: Medium Current Visit: Yes Onset Date: ~09/04/21 Qualifiers: Pneumonia type: due to unspecified organism Laterality: bilateral Lung location: unspecified part of lung Qualified Code(s): J18.9 - Pneumonia, u nspecified organism (2) Acute respiratory failure with hypoxia SNOMED Code(s): 60626572, 517713946 ICD Code: J96.01 - ACUTE RESPIRATORY FAILURE WITH HYPOXIA Status: Acute Priority: Low Current Visit: No Onset Date: ~09/04/21 Problem Details: appears mild flare consider ct scan // covid screen neg but will start antibiotics and steroids /nebs (3) COPD (chronic obstructive pulmonary disease) case management patient SNOMED Code(s): 813063408, 329359861, 764109620, 599030620 ICD Code: [id number] - Status: Acute Priority: High Current Visit: No Orders Last 24hrs: Active Orders 24 hr Category Date Time Status Admission Status [Patient Status] [ADT] Stat ADT 09/04/21 18:47 Active RT Aerosol Therapy [RC] ASDIRECTED Care 09/04/21 17:57 Active CULTURE BLOOD [BC] Stat Lab 09/04/21 18:04 Results CULTURE BLOOD [BC] Stat Lab 09/04/21 18:12 Received Azithromycin [Zithromax] 500 mg Med 09/04/21 18:30 Active Sodium Chloride 0.9% [Normal Saline AdvBag] 250 ml IV ONETIME Blood Culture x2 Reflex Set [OM.PC] Stat Oth 09/04/21 17:20 Ordered Medication Orders Azithromycin 500 mg/ Sodium (Chloride) 250 mls @ 250 mls/hr IV ONETIME BERYL Last Admin: 09/04/21 18:51 Dose: 250 mls/hr Documented by: MERI
[2021-09-05] MEDS ORDERED: Sodium Chloride 0.9% 2.5 ML Syringe FLUSH PRN (08:16)
[2021-09-05] MEDS ORDERED: Albuterol/Ipratropium 3.0-0.5 MG/3 ML Neb Soln NEB PRN (08:16)
[2021-09-05] MEDS ORDERED: Ondansetron 4 MG/2 ML SDV IVPUSH PRN (08:16)
[2021-09-05] MEDS ORDERED: Acetaminophen 325 MG Tab PO PRN (08:16)
[2021-09-05] MEDS ORDERED: Docusate Sodium 100 MG Cap PO PRN (08:16)
--- NOTE | 2021-09-05 08:21 | PCM.PN ---
- General Info Date of Service: 09/05/21 Admission Dx/Problem (Free Text): Admission Diagnosis/Problem Admission Diagnosis/Problem Pneumonia/copd Subjective Update: Feeling improved today, less congested. SOB improved, productive cough. No hemoptysis. No chest pain. NO significant edema to lower extremities. Denies any concerns today. Functional Status: Reports: Pain Controlled, Tolerating Diet, Ambulating, Urinating - Review of Systems General: Reports: No Symptoms. Denies: Weakness, Fatigue HEENT: Reports: Sinus Congestion. Denies: Headaches, Sore Throat Pulmonary: Reports: Shortness of Breath, Cough, Sputum, Wheezing. Denies: Hemoptysis Cardiovascular: Reports: Dyspnea on Exertion, Edema (scant to lower legs). Denies: Chest Pain Gastrointestinal: Reports: No Symptoms. Denies: Abdominal Pain, Nausea, Vomiting Genitourinary: Reports: No Symptoms Musculoskeletal: Reports: Back Pain (chronic ) Skin: Reports: No Symptoms Neurological: Reports: No Symptoms Psychiatric: Reports: No Symptoms - Patient Data Vitals - Most Recent: Last Vital Signs Temp 96.9 F 09/05/21 03:15 Pulse 87 09/05/21 03:15 Resp 20 09/05/21 03:15 BP 110/67 09/05/21 03:15 Pulse Ox 93 L 09/05/21 03:15 Weight - Most Recent: 107.093 kg I&O - Last 24 Hours: Intake & Output 09/04/21 09/05/21 09/05/21 22:59 06:59 14:59 Intake Total 200 Balance 200 Lab Results Last 24 Hours: Laboratory Results - last 24 hr 09/04/21 09/04/21 09/04/21 Range/Units 16:00 16:00 16:10 WBC 16.87 H (4.0-11.0) K/uL RBC 4.91 (4.50-5.90) M/uL Hgb 15.1 (13.0-17.0) g/dL Hct 45.7 (38.0-50.0) % MCV 93.1 (80.0-98.0) fL MCH 30.8 (27.0-32.0) pg MCHC 33.0 (31.0-37.0) g/dL RDW Std Deviation 47.5 (28.0-62.0) fl RDW Coeff of [place] 14 (11.0-15.0) % Plt Count 281 (150-400) K/uL MPV 9.80 (7.40-12.00) fL Neut % (Auto) 88.6 H (48.0-80.0) % Lymph % (Auto) 4.3 L (16.0-40.0) % [place] % (Auto) 6.2 (0.0-15.0) % Eos % (Auto) 0.7 (0.0-7.0) % Baso % (Auto) 0.2 (0.0-1.5) % Neut # (Auto) 15.0 H (1.4-5.7) K/uL Lymph # (Auto) 0.7 (0.6-2.4) K/uL [place] # (Auto) 1.0 H (0.0-0.8) K/uL Eos # (Auto) 0.1 (0.0-0.7) K/uL Baso # (Auto) 0.0 (0.0-0.1) K/uL Nucleated RBC % 0.0 /100WBC Nucleated RBCs # 0 K/uL D-Dimer, Quantitative (0.0-0.50) mg/L FEU Sodium 136 (136-148) mmol/L Potassium 4.0 (3.5-5.1) mmol/L Chloride 98 (98-107) mmol/L Carbon Dioxide 29.1 (21.0-32.0) mmol/L BUN 13 (7.0-18.0) mg/dL Creatinine 1.1 (0.8-1.3) mg/dL Est Cr Clr Drug Dosing 63.56 mL/min Estimated GFR (MDRD) > 60.0 ml/min Glucose 124 H (74-106) mg/dL Calcium 8.9 (8.5-10.1) mg/dL Phosphorus 3.0 (2.6-4.7) mg/dL Magnesium 1.8 (1.8-2.4) mg/dL Total Bilirubin 0.5 (0.2-1.0) mg/dL AST 15 (15-37) IU/L ALT 18 (14-63) IU/L Alkaline Phosphatase 112 (46-116) U/L Creatine Kinase 85 (26-308) U/L Troponin I < 0.050 (0.000-0.056) ng/mL Total Protein 7.7 (6.4-8.2) g/dL Albumin 3.4 (3.4-5.0) g/dL Globulin 4.3 H (2.6-4.0) g/dL Albumin/Globulin Ratio 0.8 L (0.9-1.6) SARS-CoV-2 RNA (ETHAN) NEGATIVE (NEGATIVE) 09/04/21 Range/Units 21:00 WBC (4.0-11.0) K/uL RBC (4.50-5.90) M/uL Hgb (13.0-17.0) g/dL Hct (38.0-50.0) % MCV (80.0-98.0) fL MCH (27.0-32.0) pg MCHC (31.0-37.0) g/dL RDW Std Deviation (28.0-62.0) fl RDW Coeff of [place] (11.0-15.0) % Plt Count (150-400) K/uL MPV (7.40-12.00) fL Neut % (Auto) (48.0-80.0) % Lymph % (Auto) (16.0-40.0) % [place] % (Auto) (0.0-15.0) % Eos % (Auto) (0.0-7.0) % Baso % (Auto) (0.0-1.5) % Neut # (Auto) (1.4-5.7) K/uL Lymph # (Auto) (0.6-2.4) K/uL [place] # (Auto) (0.0-0.8) K/uL Eos # (Auto) (0.0-0.7) K/uL Baso # (Auto) (0.0-0.1) K/uL Nucleated RBC % /100WBC Nucleated RBCs # K/uL D-Dimer, Quantitative 2.64 H (0.0-0.50) mg/L FEU Sodium (136-148) mmol/L Potassium (3.5-5.1) mmol/L Chloride (98-107) mmol/L Carbon Dioxide (21.0-32.0) mmol/L BUN (7.0-18.0) mg/dL Creatinine (0.8-1.3) mg/dL Est Cr Clr Drug Dosing mL/min Estimated GFR (MDRD) ml/min Glucose (74-106) mg/dL Calcium (8.5-10.1) mg/dL Phosphorus (2.6-4.7) mg/dL Magnesium (1.8-2.4) mg/dL Total Bilirubin (0.2-1.0) mg/dL AST (15-37) IU/L ALT (14-63) IU/L Alkaline Phosphatase (46-116) U/L Creatine Kinase (26-308) U/L Troponin I (0.000-0.056) ng/mL Total Protein (6.4-8.2) g/dL Albumin (3.4-5.0) g/dL Globulin (2.6-4.0) g/dL Albumin/Globulin Ratio (0.9-1.6) SARS-CoV-2 RNA (ETHAN) (NEGATIVE) Zaheer Results Last 24 Hours: Microbiology 09/04/21 18:04 Anaerobic Blood Culture - Final Blood - Venous Med Orders - Current: Current Medications Acetaminophen (Acetaminophen 325 Mg Tab) 650 mg PO Q4H PRN PRN Reason: Pain (Mild 1-3)/fever Albuterol/Ipratropium (Albuterol/Ipratropium 3.0-0.5 Mg/3 Ml Neb Soln) 3 ml NEB Q4HRRT PRN PRN Reason: Shortness Of Breath/wheezing Docusate Sodium (Docusate Sodium 100 Mg Cap) 100 mg PO BID PRN PRN Reason: Constipation Enoxaparin Sodium (Enoxaparin 40 Mg/0.4 Ml Syringe) 40 mg SUBCUT Q24H [facility] Azithromycin 500 mg/ Sodium (Chloride) 250 mls @ 250 mls/hr IV ONETIME [facility]ERY[facility] Last Admin: 09/04/21 18:51 Dose: 250 mls/hr Documented by: Ceftriaxone Sodium/Dextrose 1 (gm/ Premix) 50 mls @ 100 mls/hr IV Q24H [facility] Azithromycin 500 mg/ Sodium (Chloride) 250 mls @ 250 mls/hr IV DAILY [facility] Ondansetron HCl (Ondansetron 4 Mg/2 Ml Sdv) 4 mg IVPUSH Q4H PRN PRN Reason: Nausea Sodium Chloride (Sodium Chloride 0.9% 2.5 Ml Syringe) 2.5 ml FLUSH ASDIRECTED PRN PRN Reason: Keep Vein Open Discontinued Medications Albuterol (Albuterol 0.083% 2.5 Mg/3 Ml Neb Soln) 2.5 mg NEB ONETIME ONE Stop: 09/04/21 17:58 Last Admin: 09/04/21 18:20 Dose: 2.5 mg Documented by: Dexamethasone (Dexamethasone 10 Mg/Ml Sdv) 10 mg IVPUSH ONETIME ONE Stop: 09/04/21 17:58 Last Admin: 09/04/21 18:20 Dose: 10 mg Documented by: Levofloxacin/Dextrose 750 mg/ (Premix) 150 mls @ 100 mls/hr IV ONETIME ONE Stop: 09/04/21 18:50 Last Admin: 09/04/21 18:27 Dose: Not Given Documented by: - Exam Quality Assessment: DVT Prophylaxis. No: Supplemental Oxygen General: Alert, Oriented, Cooperative, No Acute Distress Lungs: Decreased Breath Sounds, Crackles (bibasilar). No: Normal Respiratory Effort (dyspnea) Cardiovascular: Regular Rate, Regular Rhythm GI/Abdominal Exam: Normal Bowel Sounds, Soft, Non-Tender Extremities: Normal Inspection, Normal Range of Motion, Non-Tender, Pedal Edema (+1 non pitting BLE) Skin: Warm, Dry Neurological: No New Focal Deficit Psy/Mental Status: Alert, Normal Affect, Normal Mood - Patient Data Lab Results Last 24 hrs: Laboratory Results - last 24 hr 09/04/21 09/04/21 09/04/21 Range/Units 16:00 16:00 16:10 WBC 16.87 H (4.0-11.0) K/uL RBC 4.91 (4.50-5.90) M/uL Hgb 15.1 (13.0-17.0) g/dL Hct 45.7 (38.0-50.0) % MCV 93.1 (80.0-98.0) fL MCH 30.8 (27.0-32.0) pg MCHC 33.0 (31.0-37.0) g/dL RDW Std Deviation 47.5 (28.0-62.0) fl RDW Coeff of [place] 14 (11.0-15.0) % Plt Count 281 (150-400) K/uL MPV 9.80 (7.40-12.00) fL Neut % (Auto) 88.6 H (48.0-80.0) % Lymph % (Auto) 4.3 L (16.0-40.0) % [place] % (Auto) 6.2 (0.0-15.0) % Eos % (Auto) 0.7 (0.0-7.0) % Baso % (Auto) 0.2 (0.0-1.5) % Neut # (Auto) 15.0 H (1.4-5.7) K/uL Lymph # (Auto) 0.7 (0.6-2.4) K/uL [place] # (Auto) 1.0 H (0.0-0.8) K/uL Eos # (Auto) 0.1 (0.0-0.7) K/uL Baso # (Auto) 0.0 (0.0-0.1) K/uL Nucleated RBC % 0.0 /100WBC Nucleated RBCs # 0 K/uL D-Dimer, Quantitative (0.0-0.50) mg/L FEU Sodium 136 (136-148) mmol/L Potassium 4.0 (3.5-5.1) mmol/L Chloride 98 (98-107) mmol/L Carbon Dioxide 29.1 (21.0-32.0) mmol/L BUN 13 (7.0-18.0) mg/dL Creatinine 1.1 (0.8-1.3) mg/dL Est Cr Clr Drug Dosing 63.56 mL/min Estimated GFR (MDRD) > 60.0 ml/min Glucose 124 H (74-106) mg/dL Calcium 8.9 (8.5-10.1) mg/dL Phosphorus 3.0 (2.6-4.7) mg/dL Magnesium 1.8 (1.8-2.4) mg/dL Total Bilirubin 0.5 (0.2-1.0) mg/dL AST 15 (15-37) IU/L ALT 18 (14-63) IU/L Alkaline Phosphatase 112 (46-116) U/L Creatine Kinase 85 (26-308) U/L Troponin I < 0.050 (0.000-0.056) ng/mL Total Protein 7.7 (6.4-8.2) g/dL Albumin 3.4 (3.4-5.0) g/dL Globulin 4.3 H (2.6-4.0) g/dL Albumin/Globulin Ratio 0.8 L (0.9-1.6) SARS-CoV-2 RNA (ETHAN) NEGATIVE (NEGATIVE) 09/04/21 Range/Units 21:00 WBC (4.0-11.0) K/uL RBC (4.50-5.90) M/uL Hgb (13.0-17.0) g/dL Hct (38.0-50.0) % MCV (80.0-98.0) fL MCH (27.0-32.0) pg MCHC (31.0-37.0) g/dL RDW Std Deviation (28.0-62.0) fl RDW Coeff of [place] (11.0-15.0) % Plt Count (150-400) K/uL MPV (7.40-12.00) fL Neut % (Auto) (48.0-80.0) % Lymph % (Auto) (16.0-40.0) % [place] % (Auto) (0.0-15.0) % Eos % (Auto) (0.0-7.0) % Baso % (Auto) (0.0-1.5) % Neut # (Auto) (1.4-5.7) K/uL Lymph # (Auto) (0.6-2.4) K/uL [place] # (Auto) (0.0-0.8) K/uL Eos # (Auto) (0.0-0.7) K/uL Baso # (Auto) (0.0-0.1) K/uL Nucleated RBC % /100WBC Nucleated RBCs # K/uL D-Dimer, Quantitative 2.64 H (0.0-0.50) mg/L FEU Sodium (136-148) mmol/L Potassium (3.5-5.1) mmol/L Chloride (98-107) mmol/L Carbon Dioxide (21.0-32.0) mmol/L BUN (7.0-18.0) mg/dL Creatinine (0.8-1.3) mg/dL Est Cr Clr Drug Dosing mL/min Estimated GFR (MDRD) ml/min Glucose (74-106) mg/dL Calcium (8.5-10.1) mg/dL Phosphorus (2.6-4.7) mg/dL Magnesium (1.8-2.4) mg/dL Total Bilirubin (0.2-1.0) mg/dL AST (15-37) IU/L ALT (14-63) IU/L Alkaline Phosphatase (46-116) U/L Creatine Kinase (26-308) U/L Troponin I (0.000-0.056) ng/mL Total Protein (6.4-8.2) g/dL Albumin (3.4-5.0) g/dL Globulin (2.6-4.0) g/dL Albumin/Globulin Ratio (0.9-1.6) SARS-CoV-2 RNA (ETHAN) (NEGATIVE) Result Diagrams: 09/05/21 09:41 09/05/21 09:41 Zaheer Results Last 24 hrs: Microbiology 09/04/21 18:04 Anaerobic Blood Culture - Final Blood - Venous Sepsis Event Note - Evaluation Sepsis Screening Result: No Definite Risk - Focused Exam Vital Signs: Vital Signs Temp Pulse Resp BP Pulse Ox 09/05/21 03:15 96.9 F 87 20 110/67 93 L 09/04/21 23:33 97.3 F 90 20 90/55 L 90 L 09/04/21 21:03 97.6 F 89 18 101/59 L 91 L - Problem List & Annotations (1) CAP (community acquired pneumonia) SNOMED Code(s): 786337180 Code(s): J18.9 - PNEUMONIA, UNSPECIFIED ORGANISM Status: Acute Current Visit: No (2) COPD exacerbation SNOMED Code(s): 014848974 Code(s): J44.1 - CHRONIC OBSTRUCTIVE PULMONARY DISEASE W (ACUTE) EXACERBATION Status: Acute Current Visit: Yes (3) Elevated d-dimer SNOMED Code(s): 063939918 Code(s): R79.89 - OTHER SPECIFIED ABNORMAL FINDINGS OF BLOOD CHEMISTRY Status: Acute Current Visit: Yes (4) COPD (chronic obstructive pulmonary disease) case management patient SNOMED Code(s): 651064990, 841400511, 480941904, 970519158 Code(s): IFJ3789 - Status: Acute Priority: High Current Visit: No (5) Chronic back pain SNOMED Code(s): 520250648 Code(s): M54.9 - DORSALGIA, UNSPECIFIED; G89.29 - OTHER CHRONIC PAIN Status: Acute Current Visit: No (6) CAD (coronary artery disease) SNOMED Code(s): 73261639 Code(s): I25.10 - ATHSCL HEART DISEASE OF [place] CORONARY ARTERY W/O ANG PCTRS Status: Chronic Current Visit: No Qualifiers: Coronary Disease-Associated Artery/Lesion type: [place] artery [place] vs. transplanted heart: [place] heart Associated angina: without angina Qualified Code(s): I25.10 - Atherosclerotic heart disease of [place] coronary artery without angina pectoris (7) Chronic low back pain with bilateral sciatica SNOMED Code(s): 316422676 Code(s): M54.41 - LUMBAGO WITH SCIATICA, RIGHT SIDE; M54.42 - LUMBAGO WITH SCIATICA, LEFT SIDE; G89.29 - OTHER CHRONIC PAIN Status: Chronic Current Visit: No Qualifiers: Back pain laterality: bilateral Qualified Code(s): M54.42 - Lumbago with sciatica, left side; M54.41 - Lumbago with sciatica, right side; G89.29 - Other chronic pain (8) HTN (hypertension) SNOMED Code(s): 95817648 Code(s): I10 - ESSENTIAL (PRIMARY) HYPERTENSION Status: Chronic Current Visit: No Qualifiers: Hypertension type: essential hypertension (9) History of tobacco use SNOMED Code(s): 253913186 Code(s): Z87.891 - PERSONAL HISTORY OF NICOTINE DEPENDENCE Status: Chronic Current Visit: No (10) Hx of CABG SNOMED Code(s): 870862710, 451221329 Code(s): Z95.1 - PRESENCE OF AORTOCORONARY BYPASS GRAFT Status: Chronic Current Visit: No (11) PAD (peripheral artery disease) SNOMED Code(s): 820961425 Code(s): I73.9 - PERIPHERAL VASCULAR DISEASE, UNSPECIFIED Status: Chronic Current Visit: No (12) Substance abuse SNOMED Code(s): 68498082 Code(s): F19.10 - OTHER PSYCHOACTIVE SUBSTANCE ABUSE, UNCOMPLICATED Status: Chronic Current Visit: No (13) Pulmonary hypertension SNOMED Code(s): 16799194 Code(s): I27.20 - PULMONARY HYPERTENSION, UNSPECIFIED Status: Chronic Current Visit: Yes - Problem List Review Problem List Initiated/Reviewed/Updated: Yes - My Orders Last 24 Hours: My Active Orders 09/05/21 08:15 [email or web address] [Rocephin in Dextrose,Iso-Osm 1 GM/50 ML] 1 gm Premix Bag 1 bag IV Q24H 09/05/21 08:16 Ambulate [RC] ASDIRECTED Height and Weight [RC] DAILY Intake and Output Strict [RC] ASDIRECTED Oxygen Therapy [RC] PRN Up to Chair [RC] ASDIRECTED VTE/DVT Education [RC] PER UNIT ROUTINE Vital Signs [RC] Q4H Respiratory Care Assess and Treatment [CONS] Routine BASIC METABOLIC PANEL,BMP [CHEM] Routine CBC WITH AUTO DIFF [HEME] Routine MAGNESIUM [CHEM] Routine Acetaminophen [TylenoL] 650 mg PO Q4H PRN Albuterol/Ipratropium [DuoNeb 3.0-0.5 MG/3 ML] 3 ml NEB Q4HRRT PRN Docusate Sodium [Colace] 100 mg PO BID PRN Ondansetron [Zofran] 4 mg IVPUSH Q4H PRN Sodium Chloride 0.9% [Saline Flush] 2.5 ml FLUSH ASDIRECTED PRN Saline Lock Insert [OM.PC] Routine Resuscitation Status Routine 09/05/21 08:18 RT Aerosol Therapy [RC] ASDIRECTED 09/05/21 08:19 Ang Chest [CT] Urgent 09/05/21 08:30 Enoxaparin [Lovenox] 40 mg SUBCUT Q24H methylPREDNISolone Sod Succ [Solu-MEDROL] 80 mg IVPUSH Q12H 09/05/21 15:00 Azithromycin [Zithromax] 500 mg Sodium Chloride 0.9% [Normal Saline AdvBag] 250 ml IV DAILY - Plan Plan:: This 76 year old male admitted with CAP, COPD exacerbation, and elevated D dimer 1. CAP - Continue Rocephin and Azithromyin - Duonebs PRN - Leukocytosis improving. - D dimer elevated, attempt to obtain CTA - Hx of prolonged intubation secondary to COVID 19, was discharged from hospital 10/2020 2. COPD exacerbation/acute on chronic bronchitis - Solumedrol 80 mg IV BID - Duonebs - Continue home inhalers including symbicort 3. CAD/PAD/HTN/CHF/pulmonary HTN - Continue home medications including Lasix, Lisinopril, ASA, statin and metoprolol - Monitor strict I/O and daily weights - Obtain ECHO 4. Chronic pain - Continue Gabapentin VTE prophylaxis: Lovenox GI prophylaxis: Continue home PPI CODE Status: FULL CODE Dispo: 2 days
[2021-09-05] MEDS: Enoxaparin 40 MG/0.4 ML Syringe SUBCUT SCH (09:13)
[2021-09-05] MEDS: methylPREDNISolone Sodium Succinate 40 MG/1 ML SDV IVPUSH SCH ×2 (09:14→20:18)
[2021-09-05] MEDS: cefTRIAXone 1 GM in Premix Bag 1 BAG IV SCH (09:15)
[2021-09-05 10:34] LABS: BLOOD UREA NITROGEN,BUN 17 mg/dL (7.0-18.0); CARBON DIOXIDE,CO2 22.7 mmol/L (21.0-32.0); CHLORIDE,CL 104 mmol/L (98-107); GLUCOSE RANDOM 163 mg/dL (74-106); POTASSIUM,K 4.9 mmol/L (3.5-5.1); SODIUM,NA 139 mmol/L (136-148)
[2021-09-05] MEDS: Aspirin 81 MG Tab.EC PO SCH (11:32)
[2021-09-05] MEDS: Metoprolol Tartrate 25 MG Tab PO SCH ×2 (11:33→20:19)
[2021-09-05] MEDS: Budesonide/Formoterol 160-4.5 MCG/Puff 6 GM Inhaler INH SCH ×2 (11:33→20:20)
[2021-09-05] MEDS: Gabapentin 300 MG Cap PO SCH ×2 (13:38→21:59)
[2021-09-05] MEDS: Furosemide 40 MG Tab PO SCH ×2 (13:38→21:59)
[2021-09-05] MEDS ORDERED: Azithromycin 500 MG in Sodium Chloride 0.9% 250 ML IV SCH (18:00)
[2021-09-05] MEDS ORDERED: Famotidine 20 MG Tab PO SCH (21:00)
[2021-09-05] MEDS ORDERED: atorvaSTATin 40 MG Tab PO SCH (21:00)
[2021-09-06] MEDS: Furosemide 40 MG Tab PO SCH (05:15)
[2021-09-06] MEDS: Gabapentin 300 MG Cap PO SCH (05:15)
[2021-09-06] MEDS ORDERED: Omeprazole 20 MG Cap.CR PO SCH (07:30)
[2021-09-06 07:58] LABS: BLOOD UREA NITROGEN,BUN 27 mg/dL (7.0-18.0); CHLORIDE,CL 105 mmol/L (98-107); GLUCOSE RANDOM 154 mg/dL (74-106); POTASSIUM,K 4.6 mmol/L (3.5-5.1); SODIUM,NA 141 mmol/L (136-148)
[2021-09-06] MEDS: cefTRIAXone 1 GM in Premix Bag 1 BAG IV SCH ×2 (08:39→09:06)
[2021-09-06] MEDS: Enoxaparin 40 MG/0.4 ML Syringe SUBCUT SCH (08:39)
[2021-09-06] MEDS: methylPREDNISolone Sodium Succinate 40 MG/1 ML SDV IVPUSH SCH ×2 (08:40→09:07)
[2021-09-06] MEDS: Aspirin 81 MG Tab.EC PO SCH (08:40)
[2021-09-06] MEDS: Metoprolol Tartrate 25 MG Tab PO SCH (08:40)
[2021-09-06 08:41] VITALS: BP 119/71; PULSE 82
[2021-09-06] MEDS ORDERED: predniSONE 20 MG Tab PO SCH (08:57)
[2021-09-06] MEDS ORDERED: Lisinopril 5 MG Tab PO SCH (09:00)
--- NOTE | 2021-09-06 09:06 | PCM.DCSUM1 ---
Discharge Summary - Hospital Course Brief History: 76 year old male with copd and 24 hour hx of coughing,chest congestion without fever,chills rigors or vomiting. feels sob at rest and worse with activity. recently returned form [place] and denies chest pains and denies orthopnea,mild pnd. hx of chronic [place] and copd on puffers alb and atrovent compliant with. has had flu vaccine and covid vac. also pneumonia shop. 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 no weight loss sweats ,afib or angina,hemoptysis or prev. p.e. arrythmia or chf . can walk 20 to 25 feet. pmh cad s/p cabg. aortic bypass( fem fem?) 2018. . hx of bph ,hyperlipidemia but no diabetes liver or renal failure. hx of copd. denies claudication or tia/cva. he has never worn o.2. p.e course wheezy ronchorous breathe sounds. trace edema . carotids plus one no bruits. chest xray chronic heart falure and infiltrates / mild increase in vasc. mid lung nettles. no pleural effusions. increased lung markings. perhilar marking increased. labs essentially normal but wbc increased. covid screen neg. assess:plan. 1//onset acute of bronchitis symptoms in male with long standing copd (qyuit smoking 3 years ago.). on puffers yet more symptomatic. previous lung marking abnormal and no clear if findings new or old. recommend ct scan of chest a nd empiric treatment of copd and pneumonia. recommend i.v steroids . increased interstitial markings. ? chronic fibrosis form welding or other cause , check ct scan if able . no def. pleural plaque to my review . detention smoker with cad and borderline enlarged heart . not on o2 and normally controlled with inhalers but progressing in past year. unknown lungs disease but abnormal none the less. cad appears stable recheck trop and d dimer but no chest pain . covid test neg early in course of illness repeat in few days if not responding to antibiotics. vaccinated. aortic fem bypass stable . possible hx of pcn allergy in remote past but swears he has had rocephin and pcn in past 3 years without reaction . also listed is allergy to levaquin which he doesn't remember. rocephin and azythromycin. - Discharge Data Discharge Date: 09/06/21 Discharge Disposition: Home, Self-Care 01 Condition: Good - Referral to Home Health Primary Care Physician: SEGUN Phipps - Discharge Diagnosis/Problem(s) (1) CAP (community acquired pneumonia) SNOMED Code(s): 036540590 ICD Code: J18.9 - PNEUMONIA, UNSPECIFIED ORGANISM Status: Acute (2) COPD exacerbation SNOMED Code(s): 514623265 ICD Code: J44.1 - CHRONIC OBSTRUCTIVE PULMONARY DISEASE W (ACUTE) EX ACERBATION Status: Acute (3) Elevated d-dimer SNOMED Code(s): 113146532 ICD Code: R79.89 - OTHER SPECIFIED ABNORMAL FINDINGS OF BLOOD CHEMISTRY Status: Acute (4) COPD (chronic obstructive pulmonary disease) case management patient SNOMED Code(s): 125158294, 033256915, 875726459, 899805317 ICD Code: GPG1477 - Status: Acute Priority: High (5) Chronic back pain SNOMED Code(s): 622449961 ICD Code: M54.9 - DORSALGIA, UNSPECIFIED; G89.29 - OTHER CHRONIC PAIN Status: Acute (6) CAD (coronary artery disease) SNOMED Code(s): 58825038 ICD Code: I25.10 - ATHSCL HEART DISEASE OF [place] CORONARY ARTERY W/O ANG PCTRS Status: Chronic Qualifiers: Coronary Disease-Associated Artery/Lesion type: [place] artery [place] vs. transplanted heart: [place] heart Associated angina: without angina Qualified Code(s): I25.10 - Atherosclerotic heart disease of [place] coronary artery without angina pectoris (7) Chronic low back pain with bilateral sciatica SNOMED Code(s): 877126443 ICD Code: M54.41 - LUMBAGO WITH SCIATICA, RIGHT SIDE; M54.42 - LUMBAGO WITH SCIATICA, LEFT SIDE; G89.29 - OTHER CHRONIC PAIN Status: Chronic Qualifiers: Back pain laterality: bilateral Qualified Code(s): M54.42 - Lumbago with sciatica, left side; M54.41 - Lumbago with sciatica, right side; G89.29 - Other chronic pain (8) HTN (hypertension) SNOMED Code(s): 24924057 ICD Code: I10 - ESSENTIAL (PRIMARY) HYPERTENSION Status: Chronic Qualifiers: Hypertension type: essential hypertension (9) History of tobacco use SNOMED Code(s): 407093628 ICD Code: Z87.891 - PERSONAL HISTORY OF NICOTINE DEPENDENCE Status: Chronic (10) Hx of CABG SNOMED Code(s): 460165493, 963309882 ICD Code: Z95.1 - PRESENCE OF AORTOCORONARY BYPASS GRAFT Status: Chronic (11) PAD (peripheral artery disease) SNOMED Code(s): 489053327 ICD Code: I73.9 - PERIPHERAL VASCULAR DISEASE, UNSPECIFIED Status: Chronic (12) Substance abuse SNOMED Code(s): 78443088 ICD Code: F19.10 - OTHER PSYCHOACTIVE SUBSTANCE ABUSE, UNCOMPLICATED Status: Chronic (13) Pulmonary hypertension SNOMED Code(s): 24015203 ICD Code: I27.20 - PULMONARY HYPERTENSION, UNSPECIFIED Status: Chronic - Patient Summary/Data Consults: Consultations 09/05/21 08:16 Respiratory Care Assess and Treatment [CONS] Routine Hospital Course: Admission diagnosis Acute exacerbation of COPD CAP Discharge diagnosis Acute exacerbation of COPD CAP Other PMH CAD PAD CHF Pulmonary hypertension Hypertension Chronic pain COVID-19 status post intubation Lalit was admitted secondary to acute exacerbation of COPD treated with IV steroids and duo nebs. He was also continued on home inhalers which included Symbicort. He was treated with Rocephin and azithromycin for CAP. Leukocytosis was improving to elevate today due to steroid use. D-dimer was elevated and unable to obtain CTA but patient symptoms improved with these following treatments and Wells criteria low. Patient likely does not have PE and symptoms due to pneumonia and COPD. Patient eager to go home today. Patient is on home O2 especially with ambulation and activity. Patient is continue home O2 as previously prescribed. He will be discharged home on Keflex and azithromycin for another 5 days. He also have 5 more days of prednisone taper. He is to continue home inhalers return to the ER or clinic sooner if concerns should arise. He will have follow-up appointment with PCP in 7 to 10 days. Echo pending on discharge. - Patient Instructions Diet: Heart Healthy Diet, Low Sodium Activity: No Strenuous Activities, Rest and Relax Today Showering/Bathing: May Shower Notify Provider of: Fever, Increased Pain, Swelling and Redness, Drainage, Nause a and/or Vomiting Other/Special Instructions: Encouraged to wear oxygen as prescribed at home. - Discharge Plan *PRESCRIPTION DRUG MONITORING PROGRAM REVIEWED*: Not Applicable *COPY OF PRESCRIPTION DRUG MONITORING REPORT IN PATIENT JACY: Not Applicable Prescriptions/Med Rec: Azithromycin 500 mg PO DAILY #4 tablet cephALEXin [Keflex] 500 mg PO Q12HR #8 cap predniSONE 40 mg PO WITHBREAKFAST #8 tablet Home Medications: Home Meds Gabapentin [Neurontin] 600 mg PO TID 12/15/19 [History] Budesonide/Formoterol [Symbicort 160-4.5 MCG] 2 inh IH BID 09/05/20 [History] Albuterol/Ipratropium [DuoNeb 3.0-0.5 MG/3 ML] 3 ml NEB Q4HRRT PRN 30 Days #1 neb 09/19/20 [Rx] Aspirin [Low Dose Aspirin EC] 81 mg PO DAILY #30 tablet. 12/06/20 [Rx] Famotidine [Pepcid] 40 mg PO BEDTIME #30 tablet 12/06/20 [Rx] Furosemide [Lasix] 40 mg PO TID #90 tablet 12/06/20 [Rx] Metoprolol Tartrate 25 mg PO BID #60 tablet 12/06/20 [Rx] Omeprazole 20 mg PO DAILY #30 tablet. 12/06/20 [Rx] atorvaSTATin [Lipitor] 80 mg PO BEDTIME #30 tab 12/06/20 [Rx] lisinopriL [Lisinopril] 5 mg PO DAILY #30 tablet 12/06/20 [Rx] atorvaSTATin Calcium [Atorvastatin Calcium] 80 mg PO BEDTIME 09/05/21 [History] Azithromycin 500 mg PO DAILY #4 tablet 09/06/21 [Rx] cephALEXin [Keflex] 500 mg PO Q12HR #8 cap 09/06/21 [Rx] predniSONE 40 mg PO WITHBREAKFAST #8 tablet 09/06/21 [Rx] Oxygen Therapy Mode: Nasal Cannula (uses home O2) Patient Handouts: Chronic Obstructive Pulmonary Disease Exacerbation, [id number], Pulmonary Hypertension, Cephalexin Tablets or Capsules, Prednisone tablets, COPD and Physical Activity, Community-Acquired Pneumonia, Adult, [id number] Referrals: Diana Benavides DO [Ordering Only Provider] - 09/13/21 1:30 pm - Discharge Summary/Plan Comment DC Time >30 min.: No Total # of Minutes for Discharge Time: 25 - Patient Data Vitals - Most Recent: Last Vital Signs Temp 97.4 F 09/06/21 08:00 Pulse 82 09/06/21 08:40 Resp 18 09/06/21 08:00 BP 119/71 09/06/21 08:40 Pulse Ox 96 09/06/21 08:16 Weight - Most Recent: 105.46 kg I&O - Last 24 hours: Intake & Output 09/05/21 09/06/21 09/06/21 22:59 06:59 14:59 Intake Total 800 1150 Output Total 1000 2200 Balance -200 -1050 Lab Results - Last 24 hrs: Laboratory Results - last 24 hr 09/05/21 09/05/21 09/06/21 Range/Units 09:41 09:41 05:32 WBC 12.23 H 16.76 H (4.0-11.0) K/uL RBC 4.88 5.00 (4.50-5.90) M/uL Hgb 14.8 15.0 (13.0-17.0) g/dL Hct 45.1 46.4 (38.0-50.0) % MCV 92.4 92.8 (80.0-98.0) fL MCH 30.3 30.0 (27.0-32.0) pg MCHC 32.8 32.3 (31.0-37.0) g/dL RDW Std Deviation 48.0 49.0 (28.0-62.0) fl RDW Coeff of [place] 14 15 (11.0-15.0) % Plt Count 250 292 (150-400) K/uL MPV 9.60 10.20 (7.40-12.00) fL Neut % (Auto) 87.1 H 90.9 H (48.0-80.0) % Lymph % (Auto) 6.3 L 5.2 L (16.0-40.0) % [place] % (Auto) 6.5 3.8 (0.0-15.0) % Eos % (Auto) 0.0 0.0 (0.0-7.0) % Baso % (Auto) 0.1 0.1 (0.0-1.5) % Neut # (Auto) 10.7 H 15.2 H (1.4-5.7) K/uL Lymph # (Auto) 0.8 0.9 (0.6-2.4) K/uL [place] # (Auto) 0.8 0.6 (0.0-0.8) K/uL Eos # (Auto) 0.0 0.0 (0.0-0.7) K/uL Baso # (Auto) 0.0 0.0 (0.0-0.1) K/uL Nucleated RBC % 0.0 0.0 /100WBC Nucleated RBCs # 0 0 K/uL Sodium 139 (136-148) mmol/L Potassium 4.9 (3.5-5.1) mmol/L Chloride 104 (98-107) mmol/L Carbon Dioxide 22.7 (21.0-32.0) mmol/L BUN 17 (7.0-18.0) mg/dL Creatinine 1.0 (0.8-1.3) mg/dL Est Cr Clr Drug Dosing 69.91 mL/min Estimated GFR (MDRD) > 60.0 ml/min Glucose 163 H (74-106) mg/dL Calcium 9.3 (8.5-10.1) mg/dL Magnesium 2.1 (1.8-2.4) mg/dL 09/06/21 Range/Units 05:32 WBC (4.0-11.0) K/uL RBC (4.50-5.90) M/uL Hgb (13.0-17.0) g/dL Hct (38.0-50.0) % MCV (80.0-98.0) fL MCH (27.0-32.0) pg MCHC (31.0-37.0) g/dL RDW Std Deviation (28.0-62.0) fl RDW Coeff of [place] (11.0-15.0) % Plt Count (150-400) K/uL MPV (7.40-12.00) fL Neut % (Auto) (48.0-80.0) % Lymph % (Auto) (16.0-40.0) % [place] % (Auto) (0.0-15.0) % Eos % (Auto) (0.0-7.0) % Baso % (Auto) (0.0-1.5) % Neut # (Auto) (1.4-5.7) K/uL Lymph # (Auto) (0.6-2.4) K/uL [place] # (Auto) (0.0-0.8) K/uL Eos # (Auto) (0.0-0.7) K/uL Baso # (Auto) (0.0-0.1) K/uL Nucleated RBC % /100WBC Nucleated RBCs # K/uL Sodium 141 (136-148) mmol/L Potassium 4.6 (3.5-5.1) mmol/L Chloride 105 (98-107) mmol/L Carbon Dioxide 23.0 (21.0-32.0) mmol/L BUN 27 H (7.0-18.0) mg/dL Creatinine 1.1 (0.8-1.3) mg/dL Est Cr Clr Drug Dosing 63.56 mL/min Estimated GFR (MDRD) > 60.0 ml/min Glucose 154 H (74-106) mg/dL Calcium 8.9 (8.5-10.1) mg/dL Magnesium 2.0 (1.8-2.4) mg/dL AVA Results - Last 24 hrs: Microbiology 09/04/21 18:12 Aerobic Blood Culture - Preliminary Blood - Venous - Lab Draw NO GROWTH AFTER 1 DAY Anaerobic Blood Culture - Preliminary NO GROWTH AFTER 1 DAY 09/04/21 18:04 Aerobic Blood Culture - Preliminary Blood - Venous NO GROWTH AFTER 1 DAY Anaerobic Blood Culture - Final Med Orders - Current: Current Medications Acetaminophen (Acetaminophen 325 Mg Tab) 650 mg PO Q4H PRN PRN Reason: Pain (Mild 1-3)/fever Albuterol/Ipratropium (Albuterol/Ipratropium 3.0-0.5 Mg/3 Ml Neb Soln) 3 ml NEB Q4HRRT PRN PRN Reason: Shortness Of Breath/wheezing Aspirin (Aspirin 81 Mg Tab.Ec) 81 mg PO DAILY [facility] Last Admin: 09/06/21 08:40 Dose: 81 mg Documented by: Atorvastatin Calcium (Atorvastatin 40 Mg Tab) 80 mg PO BEDTIME BERYL Last Admin: 09/05/21 20:18 Dose: 80 mg Documented by: Cephalexin (Cephalexin 500 Mg Cap) 500 mg PO Q6HR [facility] Docusate Sodium (Docusate Sodium 100 Mg Cap) 100 mg PO BID PRN PRN Reason: Constipation Last Admin: 09/05/21 09:14 Dose: 100 mg Documented by: Enoxaparin Sodium (Enoxaparin 40 Mg/0.4 Ml Syringe) 40 mg SUBCUT Q24H [facility] Last Admin: 09/06/21 08:39 Dose: 40 mg Documented by: Famotidine (Famotidine 20 Mg Tab) 40 mg PO BEDTIME [facility] Last Admin: 09/05/21 20:18 Dose: 40 mg Documented by: Furosemide (Furosemide 40 Mg Tab) 40 mg PO TID [facility] Last Admin: 09/06/21 05:15 Dose: 40 mg Documented by: Gabapentin (Gabapentin 300 Mg Cap) 600 mg PO TID [facility] Last Admin: 09/06/21 05:15 Dose: 600 mg Documented by: Azithromycin 500 mg/ Sodium (Chloride) 250 mls @ 250 mls/hr IV Q24H [facility] Last Admin: 09/05/21 18:57 Dose: 250 mls/hr Documented by: Lisinopril (Lisinopril 5 Mg Tab) 5 mg PO DAILY [facility] Last Admin: 09/06/21 08:40 Dose: 5 mg Documented by: Metoprolol Tartrate (Metoprolol Tartrate 25 Mg Tab) 25 mg PO BID [facility] Last Admin: 09/06/21 08:40 Dose: 25 mg Documented by: Omeprazole (Omeprazole 20 Mg Cap.Cr) 20 mg PO ACBREAKFAST [facility] Last Admin: 09/06/21 06:48 Dose: 20 mg Documented by: Ondansetron HCl (Ondansetron 4 Mg/2 Ml Sdv) 4 mg IVPUSH Q4H PRN PRN Reason: Nausea Budesonide/Formoterol 160-4.5 Mcg/Puff 6 Gm Inhaler 0 each INH BID [facility] Last Admin: 09/05/21 20:20 Dose: Not Given Documented by: Prednisone (Prednisone 20 Mg Tab) 40 mg PO WITHBREAKFAST [facility] Sodium Chloride (Sodium Chloride 0.9% 2.5 Ml Syringe) 2.5 ml FLUSH ASDIRECTED PRN PRN Reason: Keep Vein Open Discontinued Medications Albuterol (Albuterol 0.083% 2.5 Mg/3 Ml Neb Soln) 2.5 mg NEB ONETIME ONE Stop: 09/04/21 17:58 Last Admin: 09/04/21 18:20 Dose: 2.5 mg Documented by: Dexamethasone (Dexamethasone 10 Mg/Ml Sdv) 10 mg IVPUSH ONETIME ONE Stop: 09/04/21 17:58 Last Admin: 09/04/21 18:20 Dose: 10 mg Documented by: Levofloxacin/Dextrose 750 mg/ (Premix) 150 mls @ 100 mls/hr IV ONETIME ONE Stop: 09/04/21 18:50 Last Admin: 09/04/21 18:27 Dose: Not Given Documented by: Azithromycin 500 mg/ Sodium (Chloride) 250 mls @ 250 mls/hr IV ONETIME [facility]ERYL Last Admin: 09/04/21 18:51 Dose: 250 mls/hr Documented by: Ceftriaxone Sodium/Dextrose 1 (gm/ Premix) 50 mls @ 100 mls/hr IV Q24H [facility] Last Infusion: 09/05/21 09:45 Dose: Infused Documented by: Methylprednisolone Sodium Succinate (Methylprednisolone Sodium Succinate 40 Mg/1 Ml Sdv) 80 mg IVPUSH Q12H [facility] Last Admin: 09/06/21 08:40 Dose: 80 mg Documented by:
[2021-09-06] MEDS: Cephalexin 500 MG Cap PO SCH ×2 (09:16→11:24)
[2021-09-06] MEDS: Budesonide/Formoterol 160-4.5 MCG/Puff 6 GM Inhaler INH SCH (10:10)
== END 2021-09-06 11:55 | disposition home or self-care (01) | DRG 190 ==
LOC: MW.ED 15:27 → MW.MS 18:47
PROVIDERS: ADMIT Pediatrics; ATTEND Pediatrics
DX: J44.0 Chronic obstructive pulmonary disease with (acute) lower respiratory infection (principal); J18.9 Pneumonia, unspecified organism; J44.1 Chronic obstructive pulmonary disease with (acute) exacerbation; R79.89 Other specified abnormal findings of blood chemistry; I10 Essential (primary) hypertension; M54.9 Dorsalgia, unspecified; G89.29 Other chronic pain; Z95.1 Presence of aortocoronary bypass graft; I25.10 Atherosclerotic heart disease of native coronary artery without angina pectoris; M54.42 Lumbago with sciatica, left side; M54.41 Lumbago with sciatica, right side; I73.9 Peripheral vascular disease, unspecified; M79.606 Pain in leg, unspecified; F19.10 Other psychoactive substance abuse, uncomplicated; F10.21 Alcohol dependence, in remission; B19.20 Unspecified viral hepatitis C without hepatic coma; I27.20 Pulmonary hypertension, unspecified; Z20.822 Contact with and (suspected) exposure to COVID-19; I11.0 Hypertensive heart disease with heart failure; Z79.51 Long term (current) use of inhaled steroids; Z79.52 Long term (current) use of systemic steroids; N40.0 Benign prostatic hyperplasia without lower urinary tract symptoms; R73.9 Hyperglycemia, unspecified; T38.0X5A Adverse effect of glucocorticoids and synthetic analogues, initial encounter; D72.829 Elevated white blood cell count, unspecified; H54.7 Unspecified visual loss; E78.00 Pure hypercholesterolemia, unspecified; F41.9 Anxiety disorder, unspecified; E66.9 Obesity, unspecified; Z88.0 Allergy status to penicillin; Z88.1 Allergy status to other antibiotic agents; Z87.891 Personal history of nicotine dependence; Z79.82 Long term (current) use of aspirin; Z79.899 Other long term (current) drug therapy; I25.2 Old myocardial infarction; Z95.5 Presence of coronary angioplasty implant and graft; Z86.73 Personal history of transient ischemic attack (TIA), and cerebral infarction without residual deficits; Z90.49 Acquired absence of other specified parts of digestive tract
CPT/HCPCS: 36415; 71045; 80053; 82550; 83735; 84100; 84484; 85025; 87040 ×2; 93005; J1100; U0002; 80048; 85379; 93306; 96374; 99285-25; A9270-GY; J0456; J0696; J1650; J1956; J2920; J7050

== ENCOUNTER 2021-12-12 13:55 | Emergency (ER) | payer MEDICARE ==
[2021-12-12] MEDS ORDERED: Acetaminophen/oxyCODONE 325-10 MG Tab PO STA (15:20)
[2021-12-12] MEDS ORDERED: Ondansetron 4 MG Tab.DIS PO ONE ×2 (15:56→19:16)
[2021-12-12] MEDS ORDERED: Sodium Chloride 0.9% 1,000 ML IV ONE (17:18)
[2021-12-12] MEDS ORDERED: Sodium Chloride 0.9% 10 ML Syringe FLUSH PRN (17:18)
[2021-12-12] MEDS ORDERED: Sodium Chloride 0.9% 20 ML SDV IV PRN (17:18)
[2021-12-12] MEDS ORDERED: Sodium Chloride 0.9% 2.5 ML Syringe FLUSH PRN (17:18)
[2021-12-12 19:37] VITALS: BP 118/76; PULSE 69
== END 2021-12-12 19:25 | disposition home or self-care (01) ==
LOC: MW.ED 13:55
DX: I96 Gangrene, not elsewhere classified (principal); M19.09 Primary osteoarthritis, other specified site; M25.551 Pain in right hip; I10 Essential (primary) hypertension; I25.10 Atherosclerotic heart disease of native coronary artery without angina pectoris; I25.2 Old myocardial infarction; J44.9 Chronic obstructive pulmonary disease, unspecified; F17.210 Nicotine dependence, cigarettes, uncomplicated; F41.9 Anxiety disorder, unspecified; E66.9 Obesity, unspecified; Z68.32 Body mass index [BMI] 32.0-32.9, adult; Z86.73 Personal history of transient ischemic attack (TIA), and cerebral infarction without residual deficits; Z79.899 Other long term (current) drug therapy; Z88.0 Allergy status to penicillin; Z88.1 Allergy status to other antibiotic agents; Z79.82 Long term (current) use of aspirin
CPT/HCPCS: 72131; 72192; 73502; 99284; A9270; J3490; J7030

== ENCOUNTER 2022-02-27 21:09 | Emergency (ER) | payer MEDICARE ==
[2022-02-27] MEDS ORDERED: Acetaminophen/oxyCODONE 325-10 MG Tab PO ONE (21:28)
[2022-02-27] MEDS ORDERED: Sodium Chloride 0.9% 10 ML Syringe FLUSH PRN (21:48)
[2022-02-27] MEDS ORDERED: Sodium Chloride 0.9% 2.5 ML Syringe FLUSH PRN (21:48)
[2022-02-27 22:06] LABS: BLOOD UREA NITROGEN,BUN 16 mg/dL (7.0-18.0); CARBON DIOXIDE,CO2 21.7 mmol/L (21.0-32.0); CHLORIDE,CL 101 mmol/L (98-107); GLUCOSE RANDOM 131 mg/dL (74-106); POTASSIUM,K 3.9 mmol/L (3.5-5.1); SODIUM,NA 138 mmol/L (136-148)
[2022-02-27 22:13] LABS: ESTIMATED GFR 69 mL/min (>60)
[2022-02-27] MEDS: Sodium Chloride 0.9% 1,000 ML IV ONE (22:35)
[2022-02-28 00:22] LABS: CORONAVIRUS COVID-19 NAA POSITIVE (NEGATIVE); INFLUENZA A NAA NEGATIVE (NEGATIVE); INFLUENZA B NAA NEGATIVE (NEGATIVE)
[2022-02-28] MEDS ORDERED: Vancomycin 1.25 GM SDV ONE (04:52)
[2022-02-28] MEDS ORDERED: Sodium Chloride 0.9% 250 ML ONE (04:53)
[2022-02-28] MEDS: Sodium Chloride 0.9% 1,000 ML IV ONE (05:01)
[2022-02-28 06:46] VITALS: BP 119/63; PULSE 86
== END 2022-02-28 09:15 | disposition home or self-care (01) ==
LOC: MW.ED 21:09
DX: U07.1 COVID-19 (principal); G89.18 Other acute postprocedural pain; D72.829 Elevated white blood cell count, unspecified; I25.10 Atherosclerotic heart disease of native coronary artery without angina pectoris; E78.00 Pure hypercholesterolemia, unspecified; I10 Essential (primary) hypertension; I25.2 Old myocardial infarction; J44.9 Chronic obstructive pulmonary disease, unspecified; E66.9 Obesity, unspecified; Z68.30 Body mass index [BMI] 30.0-30.9, adult; Z86.73 Personal history of transient ischemic attack (TIA), and cerebral infarction without residual deficits; Z20.822 Contact with and (suspected) exposure to COVID-19; Z88.0 Allergy status to penicillin; Z88.1 Allergy status to other antibiotic agents; Z79.899 Other long term (current) drug therapy; Z93.3 Colostomy status
CPT/HCPCS: 0240U; 36415; 36569; 71045; 74176; 80053; 80307; 81001; 83605; 83735; 85025; 87040; 96365; 96366; 99284; A9270; J3370; J3490; J7030; J7050

== ENCOUNTER 2022-03-05 22:28 | Emergency (ER) | payer MEDICARE ==
[2022-03-05] MEDS ORDERED: Morphine 4 MG/ML VIAL IM ONE (23:05)
[2022-03-05] MEDS ORDERED: Ondansetron 4 MG Tab.DIS PO STA (23:06)
[2022-03-06 03:10] LABS: CARBON DIOXIDE,CO2 26.7 mmol/L (21.0-32.0); POTASSIUM,K 3.3 mmol/L (3.5-5.1)
[2022-03-06 03:37] VITALS: BP 120/71; PULSE 88
== END 2022-03-06 03:30 | disposition home or self-care (01) ==
LOC: MW.ED 22:28
DX: N39.0 Urinary tract infection, site not specified (principal); I25.2 Old myocardial infarction; I10 Essential (primary) hypertension; E78.00 Pure hypercholesterolemia, unspecified; E66.9 Obesity, unspecified; Z88.0 Allergy status to penicillin; Z88.1 Allergy status to other antibiotic agents; Z79.82 Long term (current) use of aspirin; Z79.899 Other long term (current) drug therapy; Z68.31 Body mass index [BMI] 31.0-31.9, adult
CPT/HCPCS: 36415; 74018; 80053; 81001; 82150; 85025; 87086; 96372; 99284; A9270; J2270; 87088; 87186; 99283

== ENCOUNTER 2022-03-20 17:18 | Emergency (ER) | payer MEDICARE ==
[2022-03-20] MEDS ORDERED: Sodium Chloride 0.9% 1,000 ML IV SCH (18:30)
[2022-03-20] MEDS: Sodium Chloride 0.9% 1,000 ML IV ONE (19:25)
[2022-03-20] MEDS: Ondansetron 4 MG Tab.DIS PO ONE ×2 (20:21→22:41)
[2022-03-20 21:04] LABS: CARBON DIOXIDE,CO2 20.8 mmol/L (21.0-32.0); POTASSIUM,K 3.7 mmol/L (3.5-5.1)
[2022-03-20] MEDS: Diatrizoate Meglumine/Diatrizoate Sodium 37% 30 ML Bottle PO STA (22:09)
[2022-03-21 00:06] VITALS: BP 120/55; PULSE 93
== END 2022-03-21 00:07 | disposition home or self-care (01) ==
LOC: MW.ED 17:18
DX: K56.7 Ileus, unspecified (principal); K59.00 Constipation, unspecified; I25.10 Atherosclerotic heart disease of native coronary artery without angina pectoris; J44.9 Chronic obstructive pulmonary disease, unspecified; E78.00 Pure hypercholesterolemia, unspecified; I25.2 Old myocardial infarction; E66.9 Obesity, unspecified; Z68.32 Body mass index [BMI] 32.0-32.9, adult; Z88.0 Allergy status to penicillin; Z88.1 Allergy status to other antibiotic agents; Z79.899 Other long term (current) drug therapy; Z79.82 Long term (current) use of aspirin; Z86.73 Personal history of transient ischemic attack (TIA), and cerebral infarction without residual deficits; Z86.16 Personal history of COVID-19; Z90.49 Acquired absence of other specified parts of digestive tract
CPT/HCPCS: 36415; 74022; 74022-26; 74176; 74176-26; 80053; 83605; 83690; 85025; 99285; A9270-GY; Q9963

== ENCOUNTER 2022-04-06 09:59 | Emergency (ER) | payer MEDICAID, MEDICARE ==
[2022-04-06 11:40] LABS: CARBON DIOXIDE,CO2 27.1 mmol/L (21.0-32.0)
[2022-04-06] MEDS ORDERED: Sodium Chloride 0.9% 1,000 ML IV ONE (12:03)
[2022-04-06] MEDS ORDERED: Cefepime 1 GM in Premix Bag 1 BAG IV ONE (12:05)
[2022-04-06] MEDS ORDERED: Sodium Chloride 0.9% 10 ML Syringe FLUSH PRN (12:06)
[2022-04-06] MEDS ORDERED: Sodium Chloride 0.9% 2.5 ML Syringe FLUSH PRN (12:06)
[2022-04-06] MEDS ORDERED: Morphine 4 MG/ML VIAL IVPUSH ONE (12:08)
[2022-04-06] MEDS ORDERED: Ondansetron 4 MG/2 ML SDV IVPUSH ONE (12:08)
[2022-04-06] MEDS ORDERED: Iopamidol 755 MG/ML 500 ML Multipack Bottle IVPUSH STA (13:31)
[2022-04-06 15:49] VITALS: BP 105/58; PULSE 99
== END 2022-04-06 15:49 | disposition home or self-care (01) ==
LOC: MW.ED 09:59
DX: M87.051 Idiopathic aseptic necrosis of right femur (principal); N39.0 Urinary tract infection, site not specified; I25.10 Atherosclerotic heart disease of native coronary artery without angina pectoris; J44.9 Chronic obstructive pulmonary disease, unspecified; I10 Essential (primary) hypertension; I25.2 Old myocardial infarction; E66.9 Obesity, unspecified; Z68.31 Body mass index [BMI] 31.0-31.9, adult; Z86.73 Personal history of transient ischemic attack (TIA), and cerebral infarction without residual deficits; Z88.0 Allergy status to penicillin; Z88.8 Allergy status to other drugs, medicaments and biological substances; Z79.899 Other long term (current) drug therapy; Z79.82 Long term (current) use of aspirin; Z86.16 Personal history of COVID-19; Z20.822 Contact with and (suspected) exposure to COVID-19
CPT/HCPCS: 36415; 73502; 74174; 80053; 81001; 83605; 85025; 87040; 87086; 93971; 96361; 96365; 96375; 99284; J0692; J2270; J2405; J3490; J7030; Q9967; U0002

== ENCOUNTER 2022-04-24 04:42 | Emergency (ER) | payer MEDICARE ==
[2022-04-24] MEDS ORDERED: Metoprolol Tartrate 5 MG/5 ML SDV IVPUSH ONE (05:11)
[2022-04-24] MEDS ORDERED: Adenosine 6 MG/2 ML SDV ONE ×2 (05:27→05:33)
[2022-04-24] MEDS ORDERED: Adenosine 6 MG/2 ML SDV IVPUSH ONE ×3 (05:40→05:41)
[2022-04-24] MEDS ORDERED: Amiodarone 150 MG in Dextrose 5% in Water 100 ML IV ONE ×2 (05:41)
[2022-04-24 05:43] LABS: BLOOD UREA NITROGEN,BUN 21 mg/dL (7.0-18.0); CARBON DIOXIDE,CO2 24.5 mmol/L (21.0-32.0); CHLORIDE,CL 104 mmol/L (98-107); GLUCOSE RANDOM 136 mg/dL (74-106); POTASSIUM,K 3.4 mmol/L (3.5-5.1); SODIUM,NA 142 mmol/L (136-148)
[2022-04-24 05:44] LABS: ESTIMATED GFR 69 mL/min (>60)
[2022-04-24] MEDS ORDERED: Aspirin 81 MG Tab.Chew PO ONE (05:44)
[2022-04-24] MEDS ORDERED: Amiodarone In Dextrose,Iso-Osm 150 MG in Premix Bag 1 BAG IV ONE ×2 (05:47)
[2022-04-24] MEDS ORDERED: Cefepime 2 GM in Premix Bag 1 BAG IV STA (05:50)
[2022-04-24] MEDS ORDERED: VANCOmycin 2 GM/400 ML 2 GM in Premix Bag 1 BAG IV ONE (06:00)
[2022-04-24] MEDS ORDERED: Magnesium Sulfate/Water 2 GM in Premix Bag 1 BAG IV ONE (06:03)
[2022-04-24] MEDS ORDERED: Magnesium Sulfate/Water 50 ML ONE (06:03)
[2022-04-24] MEDS ORDERED: Sodium Chloride 0.9% 1,000 ML IV ONE (06:12)
[2022-04-24] MEDS ORDERED: Sodium Chloride 0.9% 1,000 ML IV STA (06:12)
[2022-04-24] MEDS ORDERED: Morphine 4 MG/ML VIAL IVPUSH ONE (06:56)
[2022-04-24] MEDS ORDERED: Iopamidol 755 MG/ML 500 ML Multipack Bottle IVPUSH STA (08:52)
[2022-04-24] MEDS ORDERED: Heparin Sodium/0.45% NaCl 500 ML IV SCH (09:30)
[2022-04-24] MEDS ORDERED: Heparin Sodium 5,000 Units/ML Vial IVPUSH ONE (09:45)
[2022-04-24] MEDS ORDERED: Potassium Chloride 20 MEQ Tab.ER PO ONE (12:11)
[2022-04-24] MEDS ORDERED: LORazepam 2 MG/ML SDV IVPUSH STA ×2 (13:00→13:32)
[2022-04-24] MEDS ORDERED: propofoL 100 ML ONE (13:53)
[2022-04-24] MEDS ORDERED: Etomidate 2 MG/ML 20 ML SDV IVPUSH STA (14:08)
[2022-04-24] MEDS ORDERED: Succinylcholine 200 MG/10 ML MDV IV STA (14:09)
[2022-04-24] MEDS ORDERED: Tenecteplase 50 MG Kit IV ONE ×2 (14:15→15:30)
[2022-04-24] MEDS ORDERED: propofoL 100 ML IV SCH ×2 (14:16→14:45)
[2022-04-24] MEDS ORDERED: fentaNYL 100 MCG/2 ML SDV ONE (14:28)
[2022-04-24] MEDS ORDERED: fentaNYL 50 MCG/ML SDV IVPUSH ONE ×3 (14:37→15:27)
[2022-04-24] MEDS ORDERED: Norepinephrine 4 MG in Dextrose 5% in Water 246 ML IV SCH ×2 (15:07)
[2022-04-24 19:12] VITALS: BP 132/68; PULSE 130
== END 2022-04-24 19:13 ==
LOC: MW.ED 04:42
DX: A41.9 Sepsis, unspecified organism (principal); J18.9 Pneumonia, unspecified organism; I47.1 Supraventricular tachycardia; I48.91 Unspecified atrial fibrillation; I26.99 Other pulmonary embolism without acute cor pulmonale; J90 Pleural effusion, not elsewhere classified; E87.2 Acidosis; R77.8 Other specified abnormalities of plasma proteins; I25.10 Atherosclerotic heart disease of native coronary artery without angina pectoris; E78.00 Pure hypercholesterolemia, unspecified; I10 Essential (primary) hypertension; I25.2 Old myocardial infarction; E66.9 Obesity, unspecified; Z68.30 Body mass index [BMI] 30.0-30.9, adult; Z88.0 Allergy status to penicillin; Z88.1 Allergy status to other antibiotic agents; Z79.899 Other long term (current) drug therapy; Z95.1 Presence of aortocoronary bypass graft; Z86.73 Personal history of transient ischemic attack (TIA), and cerebral infarction without residual deficits; Z20.822 Contact with and (suspected) exposure to COVID-19
CPT/HCPCS: 31500; 36415; 36600; 43752; 51702; 71045; 71275; 74177; 80053; 82803; 83605; 83735; 83880; 84484; 85025; 85610; 85730; 87040; 93005; 96365; 96366; 96367; 96368; 96375; 99285; A9270; J0153; J0282; J0330; J0692; J1644; J2060; J2270; J2704; J3010; J3101; J3370; J3475; J3490; J7030; Q9967; U0002

== ENCOUNTER 2022-05-12 18:51 | Emergency (ER) | payer MEDICARE ==
[2022-05-12] MEDS ORDERED: Enoxaparin 100 MG/1 ML Syringe SUBCUT ONE (19:28)
[2022-05-12 20:03] VITALS: BP 118/68; PULSE 93
== END 2022-05-12 19:56 | disposition home or self-care (01) ==
LOC: MW.ED 18:51
DX: Z76.0 Encounter for issue of repeat prescription (principal); I25.10 Atherosclerotic heart disease of native coronary artery without angina pectoris; E78.00 Pure hypercholesterolemia, unspecified; I10 Essential (primary) hypertension; I25.2 Old myocardial infarction; J44.9 Chronic obstructive pulmonary disease, unspecified; E66.9 Obesity, unspecified; Z86.16 Personal history of COVID-19; Z68.30 Body mass index [BMI] 30.0-30.9, adult; Z88.0 Allergy status to penicillin; Z88.1 Allergy status to other antibiotic agents; Z79.82 Long term (current) use of aspirin; Z79.01 Long term (current) use of anticoagulants; Z79.899 Other long term (current) drug therapy; Z95.1 Presence of aortocoronary bypass graft; Z86.73 Personal history of transient ischemic attack (TIA), and cerebral infarction without residual deficits
CPT/HCPCS: 96372; 99282; J1650

== ENCOUNTER 2022-05-17 00:46 | Emergency (ER) | payer MEDICARE ==
[2022-05-17] MEDS ORDERED: Sodium Chloride 0.9% 2.5 ML Syringe FLUSH PRN (01:54)
[2022-05-17] MEDS ORDERED: Sodium Chloride 0.9% 10 ML Syringe FLUSH PRN (01:54)
[2022-05-17] MEDS ORDERED: Sodium Chloride 0.9% 1,000 ML IV ONE ×3 (01:54→02:36)
[2022-05-17 02:19] LABS: BLOOD UREA NITROGEN,BUN 43 mg/dL (7.0-18.0); CARBON DIOXIDE,CO2 17.9 mmol/L (21.0-32.0); CHLORIDE,CL 90 mmol/L (98-107); GLUCOSE RANDOM 119 mg/dL (74-106); LIPASE 68 U/L (73-393); POTASSIUM,K 3.1 mmol/L (3.5-5.1); SODIUM,NA 127 mmol/L (136-148)
[2022-05-17 02:21] LABS: ESTIMATED GFR 10 mL/min (>60)
[2022-05-17] MEDS ORDERED: DOPamine/Dextrose 5%-Water 400 MG/250 ML BAG ONE (02:54)
[2022-05-17] MEDS ORDERED: Etomidate 2 MG/ML 20 ML SDV IVPUSH ONE (02:55)
[2022-05-17] MEDS ORDERED: Succinylcholine 200 MG/10 ML MDV IV STA (02:56)
[2022-05-17] MEDS ORDERED: DOPamine/Dextrose 5%-Water 400 MG/250 ML BAG IV SCH (03:00)
[2022-05-17] MEDS ORDERED: propofoL 100 ML IV SCH (03:00)
[2022-05-17] MEDS: Ertapenem 1 GM in Sodium Chloride 0.9% 50 ML IV ONE ×2 (03:49→04:22)
[2022-05-17] MEDS ORDERED: Ertapenem 1 GM in Sodium Chloride 0.9% 50 ML IV ONE (03:56)
[2022-05-17 06:24] VITALS: BP 88/46; PULSE 80
[2022-05-17] MEDS ORDERED: cefTAZidime Pentahydrate 1 GM in Dextrose 5% in Water 100 ML IV SCH ×2 (06:30)
[2022-05-17] MEDS ORDERED: VANCOmycin 2 GM/400 ML 400 ML IV ONE (06:45)
[2022-05-17] MEDS ORDERED: Norepinephrine 4 MG in Dextrose 5% in Water 246 ML IV SCH ×2 (06:45)
== END 2022-05-17 07:44 ==
LOC: MW.ED 00:46
DX: A41.9 Sepsis, unspecified organism (principal); R65.20 Severe sepsis without septic shock; J44.9 Chronic obstructive pulmonary disease, unspecified; I25.10 Atherosclerotic heart disease of native coronary artery without angina pectoris; I10 Essential (primary) hypertension; I25.2 Old myocardial infarction; E66.9 Obesity, unspecified; Z68.31 Body mass index [BMI] 31.0-31.9, adult; Z88.0 Allergy status to penicillin; Z88.1 Allergy status to other antibiotic agents; Z79.899 Other long term (current) drug therapy; Z79.82 Long term (current) use of aspirin; Z79.01 Long term (current) use of anticoagulants; Z86.16 Personal history of COVID-19; Z20.822 Contact with and (suspected) exposure to COVID-19
CPT/HCPCS: 36415; 36556; 71045; 74176; 80053; 81001; 82803; 83605; 83690; 84484; 85025; 85610; 85730; 87040; 87070; 87077; 87086; 87088; 87154; 87186; 94660; 96361; 96365; 96366; 96367; 96368; 99285; J0330; J0713; J1265; J1335; J3490; J7030; U0002; 93005; J2704

== ENCOUNTER 2022-05-23 17:51 | Emergency (ER) | payer MEDICARE | END 2022-05-23 19:22 | disposition left against medical advice (07) | LOC: MW.ED 17:51 | DX: Z53.21 Procedure and treatment not carried out due to patient leaving prior to being seen by health care provider (principal) ==

== ENCOUNTER 2022-06-11 03:05 | Emergency (ER) | payer MEDICAID, MEDICARE ==
[2022-06-11] MEDS ORDERED: Ondansetron 4 MG Tab PO ONE (16:24)
[2022-06-11] MEDS ORDERED: HYDROmorphone 1 MG/ML Syringe IM ONE (16:24)
[2022-07-10 12:42] LABS: BLOOD UREA NITROGEN,BUN 18 mg/dL (7.0-18.0); CHLORIDE,CL 99 mmol/L (98-107); ESTIMATED GFR 51 mL/min (>60); GLUCOSE RANDOM 102 mg/dL (74-106); POTASSIUM,K 4.4 mmol/L (3.5-5.1); SODIUM,NA 134 mmol/L (136-148)
[2022-07-10 12:43] LABS: LIPASE 58 U/L (73-393)
== END 2022-06-11 17:20 | disposition home or self-care (01) ==
LOC: MW.ED 03:05
DX: G89.29 Other chronic pain (principal); M79.661 Pain in right lower leg; R11.0 Nausea
CPT/HCPCS: 36415; 80053; 83690; 85025; 96372; 99283; A9270; J1170

== ENCOUNTER 2022-07-07 15:13 | Inpatient (IN) | payer MEDICARE ==
[2022-07-07] MEDS ORDERED: Sodium Chloride 0.9% 2.5 ML Syringe FLUSH PRN (15:42)
[2022-07-07] MEDS ORDERED: Sodium Chloride 0.9% 10 ML Syringe FLUSH PRN (15:42)
[2022-07-07 17:37] LABS: CARBON DIOXIDE,CO2 24.4 mmol/L (21.0-32.0); POTASSIUM,K 4.8 mmol/L (3.5-5.1)
[2022-07-07] MEDS ORDERED: Sodium Chloride 0.9% 1,000 ML IV SCH (20:15)
[2022-07-07] MEDS: Acetaminophen/oxyCODONE 325-10 MG Tab PO PRN (23:24)
[2022-07-07] MEDS: Apixaban 5 MG Tab PO SCH (23:24)
[2022-07-08] MEDS ORDERED: Meropenem 1,000 MG in Sodium Chloride 0.9% 100 ML IV SCH (04:00)
[2022-07-08] MEDS: Meropenem Premix 50 ML IV SCH ×3 (04:26→19:29)
[2022-07-08] MEDS: Gabapentin 300 MG Cap PO SCH ×3 (05:29→21:00)
[2022-07-08 07:12] LABS: CARBON DIOXIDE,CO2 22.2 mmol/L (21.0-32.0)
[2022-07-08 07:15] LABS: POTASSIUM,K 5.8 mmol/L (3.5-5.1)
[2022-07-08] MEDS: Apixaban 5 MG Tab PO SCH ×2 (08:07→20:59)
[2022-07-08] MEDS ORDERED: Omeprazole 20 MG Cap.CR PO SCH (09:00)
[2022-07-08] MEDS ORDERED: Lidocaine 1% 20 ML MDV ONE (12:55)
[2022-07-08] MEDS ORDERED: Lidocaine 1% 20 ML MDV SUBCUT STA (13:19)
[2022-07-08] MEDS: Acetaminophen/oxyCODONE 325-10 MG Tab PO PRN (14:53)
[2022-07-09] MEDS: Meropenem Premix 50 ML IV SCH ×3 (03:05→20:36)
[2022-07-09] MEDS: Gabapentin 300 MG Cap PO SCH ×3 (05:23→23:00)
[2022-07-09 06:21] LABS: CARBON DIOXIDE,CO2 24.3 mmol/L (21.0-32.0); POTASSIUM,K 4.2 mmol/L (3.5-5.1)
[2022-07-09] MEDS ORDERED: Albuterol/Ipratropium 3.0-0.5 MG/3 ML Neb Soln NEB PRN (08:03)
[2022-07-09] MEDS: Apixaban 5 MG Tab PO SCH ×2 (08:11→20:37)
[2022-07-09] MEDS: Omeprazole 20 MG Cap.CR PO SCH (08:11)
[2022-07-09] MEDS: Aspirin 81 MG Tab.EC PO SCH (09:49)
[2022-07-09] MEDS: Metoprolol Tartrate 25 MG Tab PO SCH ×2 (09:49→20:37)
[2022-07-09] MEDS: BUDESONIDE INH SCH ×2 (10:24→21:55)
[2022-07-09] MEDS: FORMOTEROL INH SCH ×2 (10:24→21:55)
[2022-07-09] MEDS: atorvaSTATin 40 MG Tab PO SCH (20:37)
[2022-07-10] MEDS: Meropenem Premix 50 ML IV SCH ×4 (04:20→22:02)
[2022-07-10] MEDS: Acetaminophen/HYDROcodone 325-5 MG Tab PO PRN ×2 (05:29→14:11)
[2022-07-10 06:31] LABS: CARBON DIOXIDE,CO2 26.3 mmol/L (21.0-32.0); POTASSIUM,K 4.2 mmol/L (3.5-5.1)
[2022-07-10] MEDS: Gabapentin 300 MG Cap PO SCH ×3 (06:31→21:53)
[2022-07-10] MEDS: Omeprazole 20 MG Cap.CR PO SCH (06:32)
[2022-07-10] MEDS ORDERED: Magnesium Sulfate/Water 4 GM in Premix Bag 1 BAG IV ONE (07:47)
[2022-07-10] MEDS: Apixaban 5 MG Tab PO SCH ×2 (09:16→21:57)
[2022-07-10] MEDS: Metoprolol Tartrate 25 MG Tab PO SCH ×2 (09:16→21:53)
[2022-07-10] MEDS: Aspirin 81 MG Tab.EC PO SCH (09:17)
[2022-07-10] MEDS: FORMOTEROL INH SCH ×2 (09:50→22:04)
[2022-07-10] MEDS: BUDESONIDE INH SCH ×2 (09:50→22:04)
[2022-07-10] MEDS: atorvaSTATin 40 MG Tab PO SCH (21:57)
[2022-07-11 06:05] LABS: CARBON DIOXIDE,CO2 27.4 mmol/L (21.0-32.0); POTASSIUM,K 4.3 mmol/L (3.5-5.1)
[2022-07-11] MEDS: Omeprazole 20 MG Cap.CR PO SCH (06:42)
[2022-07-11] MEDS: Gabapentin 300 MG Cap PO SCH (06:43)
[2022-07-11] MEDS: Meropenem Premix 50 ML IV SCH (06:44)
[2022-07-11 07:32] VITALS: PULSE 82
[2022-07-11] MEDS: Aspirin 81 MG Tab.EC PO SCH (08:06)
[2022-07-11] MEDS: Metoprolol Tartrate 25 MG Tab PO SCH (08:06)
[2022-07-11] MEDS: Apixaban 5 MG Tab PO SCH (08:06)
[2022-07-11 08:07] VITALS: BP 132/62
[2022-07-11] MEDS: FORMOTEROL INH SCH (08:07)
[2022-07-11] MEDS: BUDESONIDE INH SCH (08:07)
== END 2022-07-11 11:00 | disposition home or self-care (01) | DRG 690 ==
LOC: MW.ED 15:13 → MW.MS 20:05
PROVIDERS: ADMIT Internal Medicine; ATTEND Internal Medicine
DX: N30.00 Acute cystitis without hematuria (principal); M87.051 Idiopathic aseptic necrosis of right femur; I95.9 Hypotension, unspecified; K55.9 Vascular disorder of intestine, unspecified; D72.825 Bandemia; E78.00 Pure hypercholesterolemia, unspecified; J44.9 Chronic obstructive pulmonary disease, unspecified; I25.10 Atherosclerotic heart disease of native coronary artery without angina pectoris; G89.29 Other chronic pain; Z66 Do not resuscitate; F15.10 Other stimulant abuse, uncomplicated; M25.552 Pain in left hip; M54.41 Lumbago with sciatica, right side; M54.42 Lumbago with sciatica, left side; I73.9 Peripheral vascular disease, unspecified; I10 Essential (primary) hypertension; I27.20 Pulmonary hypertension, unspecified; E78.2 Mixed hyperlipidemia; M25.551 Pain in right hip; Z79.52 Long term (current) use of systemic steroids; Z79.899 Other long term (current) drug therapy; N40.0 Benign prostatic hyperplasia without lower urinary tract symptoms; M54.9 Dorsalgia, unspecified; F41.9 Anxiety disorder, unspecified; E66.9 Obesity, unspecified; Z20.822 Contact with and (suspected) exposure to COVID-19; Z93.3 Colostomy status; Z90.49 Acquired absence of other specified parts of digestive tract; Z86.711 Personal history of pulmonary embolism; I25.2 Old myocardial infarction; Z95.5 Presence of coronary angioplasty implant and graft; Z98.890 Other specified postprocedural states; Z86.16 Personal history of COVID-19; Z79.01 Long term (current) use of anticoagulants; Z86.19 Personal history of other infectious and parasitic diseases; Z87.891 Personal history of nicotine dependence; Z95.1 Presence of aortocoronary bypass graft; Z88.0 Allergy status to penicillin; Z88.1 Allergy status to other antibiotic agents; Z79.82 Long term (current) use of aspirin; E11.51 Type 2 diabetes mellitus with diabetic peripheral angiopathy without gangrene; Z86.73 Personal history of transient ischemic attack (TIA), and cerebral infarction without residual deficits
CPT/HCPCS: 36410; 36415; 74176; 74176-26; 80048; 80053; 81001; 83605; 83735; 85025; 87040; 87086; 97162-GP; 97530-GP; 99100; A9270-GY; J2185; J3475; J3490; J7030; U0002

== ENCOUNTER 2023-02-17 13:00 | Emergency (ER) | payer MEDICARE ==
[2023-02-17] MEDS ORDERED: Ondansetron 4 MG Tab.DIS PO ONE (17:01)
[2023-02-17] MEDS ORDERED: Acetaminophen/HYDROcodone 325-5 MG Tab PO ONE ×2 (18:03→19:47)
[2023-02-17] MEDS ORDERED: Promethazine 25 MG/ML SDV IM ONE (18:08)
[2023-02-17 23:30] VITALS: BP 113/64; PULSE 67
== END 2023-02-17 22:35 | disposition left against medical advice (07) ==
LOC: MW.ED 13:00
DX: Z46.6 Encounter for fitting and adjustment of urinary device (principal); I25.810 Atherosclerosis of coronary artery bypass graft(s) without angina pectoris; E78.00 Pure hypercholesterolemia, unspecified; I10 Essential (primary) hypertension; I25.2 Old myocardial infarction; E66.9 Obesity, unspecified; F17.210 Nicotine dependence, cigarettes, uncomplicated; Z68.22 Body mass index [BMI] 22.0-22.9, adult; Z86.16 Personal history of COVID-19; Z87.891 Personal history of nicotine dependence; Z88.0 Allergy status to penicillin; Z88.1 Allergy status to other antibiotic agents; Z79.82 Long term (current) use of aspirin; Z79.01 Long term (current) use of anticoagulants; Z79.899 Other long term (current) drug therapy
CPT/HCPCS: 96372; 99284; A9270; J2550